=== PATIENT | male | born 1955 | race Caucasian/White ===

== ENCOUNTER 2019-12-29 15:20 | Outpatient (REF) | payer MEDICARE, MEDICAID, OTHER, SELFPAY ==
--- NOTE | 2019-12-29 15:47 | US_ITS ---
EXAMINATION: US VENOUS ULTRASOUND WITH DOPPLER LOWER EXTREMITY, RIGHT CLINICAL INFORMATION: Reason for Exam M79.89 - Other specified soft tissue disorders COMPARISON: Most recent venous ultrasound April 2018 and January 2015 TECHNIQUE: Ultrasound of the deep veins is performed from the hip to the calf with compression sonography and color and pulse Doppler assessment. Spectral analysis with color-flow imaging is performed. FINDINGS: There is normal venous compression and respiratory variation and augmented flow. The visualized common femoral vein, superficial femoral vein, profunda femoral vein, popliteal vein, and the trifurcation region shows no evidence of deep venous thrombosis. There is no significant popliteal fossa cyst. If the patient's symptoms persist, followup ultrasound in 5 days 7 days might be of value to exclude proximal propagation from a non-visualized calf vein. US/US venous duplex LE RT IMPRESSION: No DVT demonstrated in the right lower extremity.
== END 2019-12-29 15:21 | disposition home or self-care (01) ==
LOC: HO.HMGCX 15:20
PROVIDERS: PCP Nurse Practitioner Family; Visit Provider Internal Medicine
DX: M79.89 Other specified soft tissue disorders (principal)
CPT/HCPCS: 93971

== ENCOUNTER → 2020-02-16 10:04 | Outpatient (BNVA) | payer MEDICARE, MEDICAID, SELFPAY | PROVIDERS: PCP Nurse Practitioner Family; Visit Provider Family Medicine Adult Medicine | DX: M16.10 Unilateral primary osteoarthritis, unspecified hip (principal); Z98.890 Other specified postprocedural states | CPT/HCPCS: Q3014 ==

== ENCOUNTER 2020-08-02 15:17 | Outpatient (REF) | payer MEDICARE, OTHER, SELFPAY ==
[2020-08-02 16:52] LABS: Amphetamine Screen Urine Not Detected (Not Detect); Barbiturates, Urine Not Detected (Not Detect); Benzodiazepines Screen Urine Not Detected (Not Detect); Cannabinoid Screen Urine Not Detected (Not Detect); Cocaine Screen Urine Not Detected (Not Detect); Opiate Screen Urine Not Detected (Not Detect); Phencyclidine Screen Urine Not Detected (Not Detect)
== END 2020-08-02 15:18 | disposition home or self-care (01) ==
LOC: HO.HMGCLDS 15:17
PROVIDERS: PCP Nurse Practitioner Family; Visit Provider Nurse Practitioner Family
DX: Z02.83 Encounter for blood-alcohol and blood-drug test (principal)
CPT/HCPCS: 80307

== ENCOUNTER 2020-09-10 14:44 | Outpatient (REF) | payer MEDICARE, OTHER, SELFPAY ==
[2020-09-10 17:08] LABS: Amphetamine Screen Urine Not Detected (Not Detect); Barbiturates, Urine Not Detected (Not Detect); Benzodiazepines Screen Urine Not Detected (Not Detect); Cannabinoid Screen Urine Not Detected (Not Detect); Cocaine Screen Urine Not Detected (Not Detect); Opiate Screen Urine Not Detected (Not Detect); Phencyclidine Screen Urine Not Detected (Not Detect)
== END 2020-09-10 14:45 | disposition home or self-care (01) ==
LOC: HO.HMGCLDS 14:44
PROVIDERS: PCP Nurse Practitioner Family; Visit Provider Nurse Practitioner Family
DX: Z02.83 Encounter for blood-alcohol and blood-drug test (principal)
CPT/HCPCS: 80307

== ENCOUNTER 2020-10-19 14:26 | Outpatient (REF) | payer MEDICARE, OTHER, SELFPAY ==
[2020-10-19 16:52] LABS: Amphetamine Screen Urine Not Detected (Not Detect); Barbiturates, Urine Not Detected (Not Detect); Benzodiazepines Screen Urine Not Detected (Not Detect); Cannabinoid Screen Urine Not Detected (Not Detect); Cocaine Screen Urine Not Detected (Not Detect); Fentanyl, urine Not Detected (Not Detect); Opiate Screen Urine Not Detected (Not Detect); Phencyclidine Screen Urine Not Detected (Not Detect)
== END 2020-10-19 14:27 | disposition home or self-care (01) ==
LOC: HO.HMGCLDS 14:26
PROVIDERS: PCP Nurse Practitioner Family; Visit Provider Nurse Practitioner Family
DX: Z02.83 Encounter for blood-alcohol and blood-drug test (principal); F11.20 Opioid dependence, uncomplicated
CPT/HCPCS: 80307

== ENCOUNTER 2021-01-08 12:13 | Outpatient (REF) | payer MEDICARE, OTHER, SELFPAY ==
[2021-01-08 14:36] LABS: Amphetamine Screen Urine Not Detected (Not Detect); Barbiturates, Urine Not Detected (Not Detect); Benzodiazepines Screen Urine Not Detected (Not Detect); Cannabinoid Screen Urine Not Detected (Not Detect); Cocaine Screen Urine Not Detected (Not Detect); Fentanyl, urine Not Detected (Not Detect); Opiate Screen Urine Not Detected (Not Detect); Phencyclidine Screen Urine Not Detected (Not Detect)
== END 2021-01-08 12:14 | disposition home or self-care (01) ==
LOC: HO.HMGCLDS 12:13
PROVIDERS: Visit Provider Nurse Practitioner Family
DX: Z02.83 Encounter for blood-alcohol and blood-drug test (principal)
CPT/HCPCS: 80307

== ENCOUNTER 2021-11-06 10:20 | Outpatient (REF) | payer MEDICARE, OTHER, SELFPAY ==
[2021-11-06 11:56] LABS: Amphetamine Screen Urine Not Detected (Not Detect); Barbiturates, Urine Not Detected (Not Detect); Benzodiazepines Screen Urine Not Detected (Not Detect); Cannabinoid Screen Urine Not Detected (Not Detect); Cocaine Screen Urine Not Detected (Not Detect); Fentanyl, urine Not Detected (Not Detect); Opiate Screen Urine Not Detected (Not Detect); Phencyclidine Screen Urine Not Detected (Not Detect)
[2021-11-12 08:25] LABS: Codeine, Ur NEGATIVE; Hydrocodone, Ur NEGATIVE; Hydromorphone, Ur NEGATIVE; Morphine, Ur NEGATIVE; Norhydrocodone, Ur NEGATIVE; Noroxycodone, Ur NEGATIVE; Oxycodone, Ur NEGATIVE; Oxymorphone, Ur NEGATIVE
== END 2021-11-06 10:21 | disposition home or self-care (01) ==
LOC: HO.HMGCLDS 10:20
PROVIDERS: PCP Nurse Practitioner Family; Visit Provider Nurse Practitioner Family
DX: Z02.83 Encounter for blood-alcohol and blood-drug test (principal)
CPT/HCPCS: 80307; 80364; 80365

== ENCOUNTER 2022-01-03 13:30 | Outpatient (REF) | payer MEDICARE, OTHER, SELFPAY ==
--- NOTE | ~2022-01-03 | CT_ITS ---
EXAMINATION: CT CHEST SCREENING CLINICAL INFORMATION: Current smoker. 100 pack year history. COMPARISON: None. TECHNIQUE: Multidetector volumetric CT imaging of the chest is performed without contrast using low dose technique. Additional 2D coronal and sagittal reformatted images and axial 3D maximum intensity projection (MIP) images are generated on the CT workstation. This CT examination was performed using dose optimization techniques as appropriate, variously including the following: *Automated exposure control *Adjustment of mA and/or kV according to patient size (this includes techniques or standardized protocols for targeted exams where dose is matched to indication/reason for exam; i.e. extremities or head) *Use of iterative reconstruction technique DLP: 78 mGy-cm FINDINGS: LUNGS: Emphysema. 5 mm linear density in the right upper lobe axial image 79 series 5. 4 x 6 mm triangular-shaped peripheral or subpleural right middle lobe nodule adjacent to the minor fissure axial image 282 series 5 probably representing a subpleural lymph node. 3 mm peripheral or subpleural left lower lobe nodule adjacent to the fissure axial image 433 series 5 probably representing a subpleural lymph node. MEDIASTINUM: Coronary artery and aortic valve calcification. Normal heart size. No pericardial effusion. Normal caliber thoracic aorta. No enlarged hilar or mediastinal lymph nodes. CORONARY ARTERY CALCIFICATION: Moderate PLEURA: There is no pleural effusion. No pleural mass or thickening. Small left posterior medial diaphragmatic hernia containing fat. AXILLA: No lymphadenopathy. UPPER ABDOMEN: Unremarkable OSSEOUS STRUCTURES: Degenerative changes of the spine. CT/CT lung screening IMPRESSION: Emphysema. Small pulmonary nodules. Moderate coronary artery calcification. ASSESSMENT: Lung-RADS category 2: Benign RECOMMENDATION: Annual low-dose chest CT follow-up recommended.
== END 2022-01-03 13:31 | disposition home or self-care (01) ==
LOC: HO.CT 13:30
PROVIDERS: PCP Nurse Practitioner Family; Visit Provider Physician Assistant Medical
DX: Z12.2 Encounter for screening for malignant neoplasm of respiratory organs (principal); F17.210 Nicotine dependence, cigarettes, uncomplicated
CPT/HCPCS: 71271; G0296

== ENCOUNTER → 2022-02-18 09:51 | Outpatient (BNVA) | payer MEDICARE, MEDICAID, SELFPAY | PROVIDERS: PCP Nurse Practitioner Family; Visit Provider Internal Medicine | DX: R06.02 Shortness of breath (principal); J44.9 Chronic obstructive pulmonary disease, unspecified; E66.9 Obesity, unspecified; F17.210 Nicotine dependence, cigarettes, uncomplicated; Z68.35 Body mass index [BMI] 35.0-35.9, adult | CPT/HCPCS: 99202 ==

== ENCOUNTER 2022-03-06 08:54 | Outpatient (REF) | payer MEDICARE, MEDICAID, SELFPAY ==
--- NOTE | 2022-03-06 12:41 | PFT_ITS ---
Forced vital capacity is 91%, FEV1 71%, FEV1/FVC ratio is 58. [id number] is 30%. MVV is 65%. Post bronchodilator therapy, there is significant improvement in FVC, FEV1, and [id number]. Total lung capacity 98%. Residual volume 116%. Diffusion capacity 71%. CONCLUSION: Moderately severe obstructive airway disorder. Almost complete airway stability after bronchodilator therapy. These findings are consistent with bronchial asthma. Clinical correlation recommended. MD ELOISA Ratliff/MODL / [id number]
== END 2022-03-06 08:55 | disposition home or self-care (01) ==
LOC: HO.RESP 08:54
PROVIDERS: PCP Nurse Practitioner Family; Visit Provider Internal Medicine
DX: J44.9 Chronic obstructive pulmonary disease, unspecified (principal); R06.02 Shortness of breath; F17.210 Nicotine dependence, cigarettes, uncomplicated
CPT/HCPCS: 94060; 94727; 94729

== ENCOUNTER → 2022-04-01 11:15 | Outpatient (BNVA) | payer MEDICARE, MEDICAID, SELFPAY | PROVIDERS: PCP Nurse Practitioner Family; Visit Provider Internal Medicine | DX: J43.9 Emphysema, unspecified (principal); F17.210 Nicotine dependence, cigarettes, uncomplicated | CPT/HCPCS: 99212 ==

== ENCOUNTER → 2022-07-29 11:17 | Outpatient (BNVA) | payer MEDICARE, MEDICAID, SELFPAY | PROVIDERS: PCP Nurse Practitioner Family; Visit Provider Internal Medicine | DX: J44.9 Chronic obstructive pulmonary disease, unspecified (principal); F17.210 Nicotine dependence, cigarettes, uncomplicated | CPT/HCPCS: 94010; 99212 ==

== ENCOUNTER 2022-11-13 13:51 | Outpatient (AMB) | payer OTHER, MEDICARE, MEDICAID, SELFPAY ==
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
[2022-11-13 13:56] VITALS: BP 132/80; PULSE 78; TEMP 36.1; O2SAT 96; BMI 36.0
== END 2022-11-13 14:41 | disposition home or self-care (01) ==
PROVIDERS: PCP Nurse Practitioner Family; Visit Provider Emergency Medicine
DX: M62.838 Other muscle spasm (principal)
CPT/HCPCS: 99213

== ENCOUNTER 2022-11-26 13:40 | Outpatient (AMB) | payer OTHER, MEDICARE, MEDICAID, SELFPAY ==
[2022-11-26 14:05] VITALS: BP 130/60; PULSE 78; O2SAT 93; BMI 37.8
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
== END 2022-11-26 15:42 | disposition home or self-care (01) ==
PROVIDERS: PCP Nurse Practitioner Family; Visit Provider Nurse Practitioner Family
DX: M50.90 Cervical disc disorder, unspecified, unspecified cervical region (principal); E66.9 Obesity, unspecified; Z12.5 Encounter for screening for malignant neoplasm of prostate; Z68.33 Body mass index [BMI] 33.0-33.9, adult
CPT/HCPCS: 99213

== ENCOUNTER 2022-11-26 14:52 | Outpatient (REF) | payer OTHER, MEDICARE, MEDICAID, SELFPAY ==
--- NOTE | ~2022-11-26 | XR_ITS ---
EXAMINATION: XR CERVICAL SPINE CLINICAL INFORMATION: Cervical disc disease. COMPARISON: Radiographs dated 05/12/2014. TECHNIQUE: Frontal, odontoid, lateral and swimmer's views of the cervical spine were obtained. FINDINGS: Vertebral body heights are normal. At C3-C4, there is moderate disc space narrowing and a 3 mm retrolisthesis. At C4-C5, there is moderate disc space narrowing and a 3 mm retrolisthesis. At C6-C7, there is marked disc space narrowing. The remaining disc spaces are relatively well-maintained. No acute fracture or spondylolisthesis is seen. There is multi-level cervical spondylosis and facet arthropathy. The posterior elements are intact. The paravertebral soft tissues are unremarkable. XR/XR cervical spine 2V IMPRESSION: There is multi-level cervical degenerative disc disease, spondylosis and facet arthropathy. Degenerative disc disease is most pronounced at C6-C7, where it is marked.
== END 2022-11-26 14:53 | disposition home or self-care (01) ==
LOC: HO.HMGCX 14:52
PROVIDERS: PCP Nurse Practitioner Family; Visit Provider Nurse Practitioner Family
DX: M50.90 Cervical disc disorder, unspecified, unspecified cervical region (principal)
CPT/HCPCS: 72040

== ENCOUNTER 2023-07-29 10:00 | Outpatient (REF) | payer MEDICARE, SELFPAY ==
--- NOTE | ~2023-07-29 | CT_ITS ---
EXAMINATION: CT LOW-DOSE SCREENING CHEST WITHOUT CONTRAST CLINICAL INFORMATION: Personal history of nicotine dependence. The patient has a 40 pack-year history of smoking, having quit 1 year ago. COMPARISON: CT chest 01/03/2022. TECHNIQUE: Multidetector volumetric CT imaging of the chest is performed on a Siemens SOMATOM Definition scanner without contrast using low dose technique. Additional 2D coronal and sagittal reformatted images and axial 3D maximum intensity projection (MIP) images are generated on the CT workstation. This CT examination was performed using dose optimization techniques as appropriate, variously including the following: *Automated exposure control. *Adjustment of mA and/or kV according to patient size (this includes techniques or standardized protocols for targeted exams where dose is matched to indication/reason for exam; i.e. extremities or head). *Use of iterative reconstruction technique. TOTAL EXAM DLP: 89 mGy-cm. CTDIvol: 2.39 mGy. FINDINGS: PULMONARY NODULES: There is a new left infrahilar mass abutting the posterior mediastinum measuring 5.4 x 3.7 x 5.2 cm (5:344). At the time of the prior study, a slightly complex cyst was present in this region (prior 5:288). Some other small nodules are seen and unchanged including a triangular right middle lobe perifissural nodule (5:393 compare prior 5:282). [place] images have been saved. LUNGS: Lungs bilaterally symmetrically expanded. There is mild emphysema along with mild bronchial thickening. No effusion or pneumothorax. Central airways patent. MEDIASTINUM: No mediastinal, hilar or axillary adenopathy or free fluid collection. CORONARY ARTERY CALCIFICATION: None visualized on this study. THYROID GLAND: Unremarkable to the extent seen. CARDIOVASCULAR STRUCTURES: Aortic and heart size normal. No pericardial effusion. CHEST WALL/AXILLA: Unremarkable. UPPER ABDOMEN: Included portions of the solid organs in the upper abdomen unremarkable on noncontrast imaging. OSSEOUS STRUCTURES: No suspicious focal findings. CT/CT lung screening IMPRESSION: New left infrahilar mass measuring 5.4 cm. ASSESSMENT: 1. Lung-RADS Category 4B: Suspicious findings. N/A. 2. Lung-RADS Category S: Negative. There are no clinically significant or potentially clinically significant findings not related to the lungs requiring urgent additional evaluation. RECOMMENDATION: Tissue sampling is recommended depending on the probability of malignancy and comorbidities.
== END 2023-07-29 10:01 | disposition home or self-care (01) ==
LOC: HO.CT 10:00
PROVIDERS: PCP Nurse Practitioner Family; Visit Provider Physician Assistant Medical
DX: Z12.2 Encounter for screening for malignant neoplasm of respiratory organs (principal); Z87.891 Personal history of nicotine dependence
CPT/HCPCS: 71271

== ENCOUNTER 2023-09-02 13:06 | Outpatient (AMB) | payer MEDICARE, SELFPAY ==
--- NOTE | 2023-09-02 13:10 | AM.OFFWIN_ITS ---
Intake Vital Signs 09/02/23 13:11 Height 5 ft 11 in Weight 247 lb BMI 34.4 BP 110/62 Blood Pressure Location Rt brachial Position Sitting Pulse 66 Pulse Source Pulse Oximeter Temp 98.7 F Temp Source Oral Pulse Oximetry (%) 98 Oxygen Delivery Method Room Air Intake Visit Reasons: EP ?Spider bite back of head Intake Note: pt here c/o insect bite on back of head. ? Spider bite Patient Tobacco Use Status: Former Tobacco user Allergies Bees Allergy (Unknown, Uncoded 09/02/23 13:10) anaphylaxis Do you need a note to return to daycare/school/sports/work: No HPI HPI Comments History of Present Illness Details Patient is a 68yo M who presents for painful scalp lesions Ongoing a 1-2 weeks Initially thought bit by something Recently took his boat out in [place] and unsure if insects Not itchy Painful when he scratches No fever or chills Used Ibuprofen for slight discomfort and headache it causes No vision changes associated No other complaints PFS Medical History (Updated 09/02/23 @ 13:29 by Susan Barrera PA-C) Personal history of nicotine dependence Asthma with chronic obstructive pulmonary disease (COPD) COPD (chronic obstructive pulmonary disease) Obesity (BMI 30.0-34.9) History of COVID-19 Left hip prosthetic joint infection Opioid dependence Shoulder pain Osteoarthritis Right leg swelling Arthritis, hip Surgical History History of total right hip replacement History of total left hip replacement History of lumbar surgery Family History Father Colon cancer Mother Cancer Social History Household Members Other:: , lives with and 10 yo daughter Housing: House Alcohol intake: never Patient Tobacco Use Status: Former Tobacco user Cigarette Packs Per Day: 1 Years Smoked: onset 16yo, 1ppd x 40yrs, 40pyh e-Cigarette/Vaping Use: Never Used Second Hand Smoke Exposure: No Current 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 Cognitive needs: No Hearing needs: No Vision needs: No Review of Systems Const Denies chills, Denies fatigue, Denies fever(s) and Reports headache(s) Eyes Denies change in vision ENT Denies dizziness, Reports headache(s), Denies nasal congestion and Denies sore throat Card Denies chest pain and Denies syncope Resp Denies cough Skin/Breast Reports new lesions and Reports skin pain Neuro Denies dizziness, Denies syncope and Reports headache(s) Endo Denies fatigue Physical Exam Vital Signs: Last Vital Signs Temp 98.7 F 09/02/23 13:11 Pulse 66 09/02/23 13:11 BP 110/62 09/02/23 13:11 Pulse Ox 98 09/02/23 13:11 Oxygen Delivery Method Room Air 09/02/23 13:11 BMI result Body Mass Index 34.4 General: Non-toxic, NAD. Speaking full sentences. Skin: Warm dry throughout. Scalp has scattered approx 5-7 pustules and scabbed lesions without significant erythema. No active drainage No lesions to neck periauricular or periorbital region Eye: EOMI Respiratory: No respiratry distress MSK: Full ROM extremities. Neurology: A/O. No aphasia or facial droop. Gait without abnormality Psych: Good mood and affect Assessment & Plan Assessment & Plan (1) Folliculitis: Code(s): L73.9 - Follicular disorder, unspecified Plan: Patient seen and evaluated. Pt does not have shingles on examination He has few scattered small pustules bilaterall on scalp On doxy BID for chronic hip infection with infectious disease so will add keflex Patient gave verbal understanding and had no additional questions or concerns at time of discharge All questions answered Medications: New cephalexin 500 mg PO BID 14 caps 0RF Coding Level of Care Code Est Pt Level 3 (27558) Diagnoses Folliculitis L73.9
[2023-09-02 13:11] VITALS: BP 110/62; PULSE 66; TEMP 37.1; O2SAT 98; BMI 34.4
== END 2023-09-02 13:44 | disposition home or self-care (01) ==
PROVIDERS: PCP Nurse Practitioner Family; Visit Provider Physician Assistant
DX: L73.9 Follicular disorder, unspecified (principal)
CPT/HCPCS: 99213

== ENCOUNTER 2023-09-04 11:50 | Day surgery (SDC) | payer MEDICARE, SELFPAY ==
--- NOTE | 2023-09-02 13:21 | P.CONAN_ITS ---
Documented by User: Monie Caldwell NP 09/02/23 13:21 HPI - Anesthesia Eval Consult details Narrative: 68yo M for Endoscopic Bronchial Ultrasound [facility] Active Problems Active Problems: All Active Problems Opioid dependence (Acute) COPD (chronic obstructive pulmonary disease) (Acute) Personal history of nicotine dependence (Acute) Nicotine dependence, cigarettes, uncomplicated (Acute) Shortness of breath (Acute) Chronic lower back pain (Acute) DDD (degenerative disc disease), cervical (Acute) Cervical neck pain with evidence of disc disease (Acute) Screening for AAA (abdominal aortic aneurysm) (Acute) Obesity (BMI 30.0-34.9) (Acute) Dermatitis (Acute) Right leg swelling (Acute) Arthritis, hip (Acute) Past Medical History Medical History (Updated 09/13/23 @ 14:41 by Nikita Martinez [facility]) Carcinoma, lung Personal history of nicotine dependence Asthma with chronic obstructive pulmonary disease (COPD) COPD (chronic obstructive pulmonary disease) Obesity (BMI 30.0-34.9) History of COVID-19 Left hip prosthetic joint infection Opioid dependence Shoulder pain Osteoarthritis Right leg swelling Arthritis, hip Family History Family History Father Colon cancer Mother Cancer Surgical History Surgical History (Updated 09/17/23 @ 09:55 by Kierra Bella PA-C) History of bronchoscopy History of total right hip replacement History of total left hip replacement History of lumbar surgery Social History Social History Household Members Other:: , lives with and 10 yo daughter Housing: House Alcohol intake: never Patient Tobacco Use Status: Former Tobacco user Cigarette Packs Per Day: 1 Years Smoked: onset 16yo, 1ppd x 40yrs, 40pyh e-Cigarette/Vaping Use: Never Used Second Hand Smoke Exposure: No Current 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 Assessment and Plan Assessment Anesthesia Assessment: Chart Reviewed Documented by User: All Villanueva MD 09/17/23 13:07 [facility] Past Medical History Medical History (Updated 09/13/23 @ 14:41 by CARY Concepcion) Carcinoma, lung Personal history of nicotine dependence Asthma with chronic obstructive pulmonary disease (COPD) COPD (chronic obstructive pulmonary disease) Obesity (BMI 30.0-34.9) History of COVID-19 Left hip prosthetic joint infection Opioid dependence Shoulder pain Osteoarthritis Right leg swelling Arthritis, hip Family History Family History Father Colon cancer Mother Cancer Family history of problems with anesthesia: No Surgical History Surgical History (Updated 09/17/23 @ 09:55 by Kierra Bella PA-C) History of bronchoscopy History of total right hip replacement History of total left hip replacement History of lumbar surgery History of Problems with Anesthesia: No Social History Social History Household Members Other:: , lives with and 10 yo daughter Housing: House Alcohol intake: never Patient Tobacco Use Status: Former Tobacco user Cigarette Packs Per Day: 1 Years Smoked: onset 16yo, 1ppd x 40yrs, 40pyh e-Cigarette/Vaping Use: Never Used Second Hand Smoke Exposure: No Current 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 See above. Assessment and Plan Assessment Anesthesia Assessment: Anesthesia Plan Discussed Final Anesthetic Review Family History of Problems with Anesthesia: No History of Problems with Anesthesia: No NPO: Yes ASA Class: III Final Preanesthetic Review: No Changes in Pt Med Stat, Meds/Allgs Chart Reviewed, Consent Obtained/Reviewed and Anes Risks/Benef Reviewed Patient Risk: High Procedure Risk: Intermediate Anesthetic Plan Anesthetic Plan: GA and Agree w/ Assess. and Plan Disposition: Standard PACU
--- NOTE | ~2023-09-04 | XR_ITS ---
EXAMINATION: XR CHEST CLINICAL INFORMATION: Status post bronchoscopy. Left lung biopsy. COMPARISON: Chest CT July 29, 2023 TECHNIQUE: Frontal view of the chest was obtained. FINDINGS: The lungs are well expanded. There is a partially obscured left infrahilar mass. No sizable pneumothorax. No pleural effusion. Cardiac silhouette is unchanged. XR/XR chest 1V IMPRESSION: Partially obscured left infrahilar mass. Electronically signed by: Agustin Hussein MD 10/23/2023 09:34 AM EDT
[2023-09-04 12:01] VITALS: BP 146/68; PULSE 82; RESP 20; TEMP 36.9; O2SAT 96; BMI 34.0
[2023-09-04] MEDS: Lactated Ringers 1,000 ML 100 ML IVCONT (12:21)
--- NOTE | 2023-09-04 12:55 | MHC.SHP ---
Pre-Procedural Eval Section A - 24 Hr Update-Section A only Date of Service: 09/04/23 The patient is an INPATIENT: No Changes since office visit: No Cold of Flu in the past 2 weeks, No New Medical Problems, No Changes in Medication and No Patient answered all questions Section B - Complete if H&P > 30 days Chief Complaint: Other nonspecific abnormal finding of lung field Details of Present Illness: 68 y/o man with CT chest demonstrating a LLL mass like density Relevant Family History (Specify if Yes): No Relevant Social History: None Present Medications: see Short Stay Collaborative assessment Medical History: Significant History History of Previous Operations: No relevant previous surgery Allergies: Allergies Allergy/AdvReac Type Severity Reaction Status Date / Time Bees Allergy Unknown anaphylaxis Uncoded 09/02/23 13:10 Review of Systems Sugical H&P ROS: Negative: Constitution, Cardiovascular, Neurological, Psychiatric, Hem-Onc, Allergic/Immunologic, Gastrointestinal, Genitourinary and Musculoskeletal and Yes, Specify: Respiratory (cough, dyspnea) Exam Surgical H&P Exam: Normal: HEENT, Normal: Heart, Normal: Lungs, Normal: Extremities, Normal: Abdomen, Normal: Skin and Normal: Neurological Plan Diagnosis/Plan: Change (LLL mass plan for EBUS/bronchosocpy) I have reviewed the history and physical and performed a pertinent physical examination on my patient. No changes have occurred unless specified. Time Spent With Patient Time: Total time managing care of this patient today ____ minutes.
[2023-09-04 14:40] VITALS: BP 132/61; PULSE 94; RESP 18; TEMP 36.6; O2SAT 96
[2023-09-04 14:45] VITALS: BP 135/62; PULSE 89; RESP 18; O2SAT 94
[2023-09-04 14:50] VITALS: BP 127/62; PULSE 88; RESP 18; O2SAT 96
[2023-09-04 14:55] VITALS: BP 133/75; PULSE 84; RESP 18; TEMP 37; O2SAT 96
--- NOTE | 2023-09-08 13:50 | P.BOP_ITS ---
Brief Operative Note Date of Service: 09/08/23 Pre-op diagnosis: lung mass Post-op diagnosis: other (lung cancer) Procedure: EBUS with TBNA LLL mass, Bronchoscopy with biopsies LLL mass Implants: Surgeon: Brady Paula MD Anesthesia: GETA Was an Drug Regulatory Affairs Specialist used for this Procedure?: No Estimated blood loss (mL): 4 Pathology: other (LLL biopsies and FNA) Condition: stable Disposition: same day
--- NOTE | 2023-09-09 00:47 | OP_ITS ---
DATE OF SERVICE: 09/04/2023 SURGEON: Brady Paula MD PREOPERATIVE DIAGNOSIS: Lung mass. POSTOPERATIVE DIAGNOSIS: PROCEDURE PERFORMED: ESTIMATED BLOOD LOSS: COMPLICATIONS: ANESTHESIA: General endotracheal anesthesia provided. ASSISTANTS: SPECIMENS: POSTOPERATIVE DIAGNOSES: Lung mass, suspicious for cancer within the bronchial lesion, the left lower lobe. PROCEDURES PERFORMED: Endobronchial ultrasound bronchoscopy with transbronchial needle aspiration of the left lower lobe lobe mass and bronchoscopy with biopsies and washings of the left lower lobe mass. DESCRIPTION OF PROCEDURE: After the patient was adequately sedated, a flexible digital bronchoscope was introduced into the ET tube to the level of the trachea. Lidocaine was administered. Then using the endobronchial ultrasound, could visualize the left lower lobe area. Using the ultrasound guidance, we could appreciate the echogenic mass like density in the left lower lobe. Using real time ultrasound guidance, transbronchial needle aspirations were collected. We did not have the pathologist present, so we did perform 4 passes and placed them and also some in RPMI to rule for lymphoproliferative conditions. Minimal bleeding was noted from that. Next, the EBUS bronchoscope was removed and replaced with a regular bronchoscopy. The tracheobronchial tree was examined up to the subsegmental level. No evidence of any other endobronchial lesions except from the superior segment of the left lower lobe. Epinephrine was initially used half an ampule just to prepare the area that appeared to be with vascular in nature as far as the tumor growth. After pretreating with epinephrine using forceps, the bronchial biopsies were collected in the left lower lobe mass, sent in formalin for pathology. Multiple passes were done. Addition epinephrine was used to good hemostasis. After the patient reached good hemostasis, and we cleared out the airways, the bronchoscope was then removed. The total endoscopic time approximately about 45 minutes. The patient tolerated the procedure well. Vital signs were stable throughout the procedure. X-ray was done afterwords. No apparent complications. HEALTHCARE CONSULTING MANAGER: None. Brady Paula MD MR/OLGAL / [id number]
== END 2023-09-04 15:25 | disposition home or self-care (01) ==
PROVIDERS: PCP Nurse Practitioner Family; Visit Provider Hospitalist
PROC: (CPT 31628; principal; 2023-09-04 13:30)
DX: C34.32 Malignant neoplasm of lower lobe, left bronchus or lung (principal)
CPT/HCPCS: 31628; 31623; 31654; 36415; 71045; 87070; 87077; 87185; 87205; 88112; 88173; 88184; 88185; 88300; 88305; 88341; 88342; 88360; J0171; J2704; J3010

== ENCOUNTER → 2023-09-04 11:50 | Outpatient (BNV) | payer MEDICARE, SELFPAY | PROVIDERS: PCP Nurse Practitioner Family; Visit Provider Hospitalist | DX: C34.32 Malignant neoplasm of lower lobe, left bronchus or lung (principal) | CPT/HCPCS: 31625; 31652 ==

== ENCOUNTER 2023-09-15 12:26 | Outpatient (REF) | payer MEDICARE, SELFPAY ==
[2023-09-15 10:52] VITALS: PULSE 77; RESP 16; O2SAT 97
--- NOTE | 2023-09-15 14:14 | PFT_ITS ---
Flows: FEV1: 87 % of predicted at 2.90 L FVC: 99 % of predicted at 4.35 L FEV1/FVC: 67 % Bronchodilator response: Present Volumes: Total lung capacity: 96 % of predicted at 7.08 L Residual volume: 121 % of predicted at 3.17 L Slow vital capacity: 82 % of predicted at 3.90 L Expiratory reserve volume: 86 % of predicted at 1.12 L Diffusion capacity: Mildly decreased Impression: Mild obstructive ventilatory defect with positive bronchodilator response. Increased residual volume suggests air trapping. Decreased diffusion capacity suggests emphysema. MTDD
== END 2023-09-15 12:27 | disposition home or self-care (01) ==
LOC: HO.RESP 12:26
PROVIDERS: PCP Nurse Practitioner Family; Visit Provider Internal Medicine
DX: J44.9 Chronic obstructive pulmonary disease, unspecified (principal)
CPT/HCPCS: 94010; 94640; 94727; 94729

== ENCOUNTER → 2023-09-15 14:14 | Outpatient (BNV) | payer MEDICARE, SELFPAY | PROVIDERS: PCP Nurse Practitioner Family; Visit Provider Internal Medicine Pulmonary Disease | DX: J44.9 Chronic obstructive pulmonary disease, unspecified (principal) | CPT/HCPCS: 94060; 94727; 94729 ==

== ENCOUNTER 2023-09-21 08:48 | Outpatient (REF) | payer MEDICARE, SELFPAY ==
--- NOTE | ~2023-09-21 | US_ITS ---
EXAMINATION: US RETROPERITONEAL LIMITED (AORTA) CLINICAL INFORMATION: Chronic obstructive pulmonary disease, unspecified, smoker. COMPARISON: CT low-dose screening chest without contrast 07/29/2023. TECHNIQUE: Kruger-scale, color Doppler and spectral Doppler evaluation of the abdominal aorta. Technically limited study secondary to body habitus. FINDINGS: Atherosclerosis in the abdominal aorta. The measurements of the aorta in maximum AP and transverse dimensions respectively are as follows: Proximal: 2.5 x 2.2 cm. Mid: 2.6 x 3.1 cm. Distal: 3.2 x 3.3 cm. PSV: 83.2 cm/s. The measurements of the common iliac arteries in maximum AP and TRV dimensions are as follows: Right Common Iliac Artery: 1.3 x 1.3 cm. Left Common Iliac Artery: 1.3 x 1.5 cm. ADDITIONAL FINDINGS: Sludge incidentally noted in the gallbladder. US/US abdominal aortic aneurysm IMPRESSION: Distal abdominal aortic aneurysm measuring up to 3.3 cm. Best Practice Recommendation: Based on published guidelines in J Am Ever Radiol 2013; 10(10):789-794 and J Vasc Surg. 2018; 67:2-77, the recommendation for an abdominal aortic aneurysm with diameter 3.0-3.4 cm is follow-up every 3 years.
[2023-09-21 10:11] LABS: MANUAL DIFF FLAG NO
[2023-09-21 10:16] LABS: Basophils Absolute Auto 0.1 X10*3/uL (0.0-0.2); Basophils Percent Auto 0.5 % (0-2); Eosinophils Absolute Auto 0.3 X10*3/uL (0.0-0.4); Eosinophils Percent Auto 3.1 % (0-4); Hematocrit 36.7 % (42.0-52.0); Hemoglobin 11.8 g/dl (14.0-18.0); Imm Gran Abs Auto 0.06 X10*3/uL (0.00-0.03); Imm Gran Pct Auto 0.6 % (0.0-0.4); Lymphocytes Absolute Auto 1.9 X10*3/uL (1.2-4.9); Lymphocytes Percent Auto 19.9 % (20-40); Mean Corpuscular HGB Conc 32.2 g/dl (31.0-36.0); Mean Corpuscular Hemoglobin 26.2 pg (27.0-33.0); Mean Corpuscular Volume 81.6 fL (80.0-98.0); Mean Platelet Volume 8.2 fL (9.4-12.4); Monocytes Absolute Auto 0.8 X10*3/uL (0.1-1.2); Monocytes Percent Auto 8.3 % (2-11); Neutrophils Absolute Auto 6.5 x10*3/uL (2.0-8.3); Neutrophils Percent Auto 67.6 % (45-73); Platelet Count 368 X10*3/uL (160-400); Red Cell Distribution Width 15.1 % (11.0-16.0); White Blood Count 9.6 X10*3/uL (4.8-10.8)
[2023-09-21 11:22] LABS: Alanine Aminotransferase 22 U/L (0-40); Albumin Level 3.7 g/dL (3.5-5.0); Alkaline Phosphatase 118 U/L (39-117); Anion Gap 12 (12-20); Aspartate Amino Transferase 18 U/L (5-37); Bilirubin Total 0.3 mg/dL (0.0-1.0); Blood Urea Nitrogen 17 mg/dL (9-16); Calcium 9.7 mg/dL (8.4-10.2); Carbon Dioxide 27 mmol/L (22-29); Chloride 103 mmol/L (96-108); Cholesterol 179 mg/dL (<200); Estimated Glomerular Filt Rate > 60; Glucose Fasting 101 mg/dL (60-99); HDL Cholesterol 35 mg/dL (>40); LDL Cholesterol Calculated 125 mg/dL (<100); Potassium 4.3 mmol/L (3.3-5.1); Sodium 138 mmol/L (135-145); Total Protein 7.7 g/dL (6.5-8.0); Triglycerides 99 mg/dL (<150)
[2023-09-21 11:24] LABS: TSH reflex Free T4 0.46 uIU/mL (0.32-4.0)
== END 2023-09-21 08:49 | disposition home or self-care (01) ==
LOC: HO.HMGCX 08:48
PROVIDERS: PCP Nurse Practitioner Family; Visit Provider Nurse Practitioner Family
DX: J44.9 Chronic obstructive pulmonary disease, unspecified (principal); E66.9 Obesity, unspecified; Z87.891 Personal history of nicotine dependence; Z12.5 Encounter for screening for malignant neoplasm of prostate
CPT/HCPCS: 36415; 76706; 80053; 80061; 84153; 84443; 85025

== ENCOUNTER 2023-09-24 13:54 | Outpatient (AMB) | payer MEDICARE, SELFPAY ==
[2023-09-24 13:56] VITALS: BP 130/70; PULSE 76; O2SAT 96; BMI 33.1
--- NOTE | 2023-09-24 13:56 | MHC.PC.OV ---
Vital Signs 09/24/23 13:56 Height 5 ft 11 in Weight 237 lb BMI 33.1 BP 130/70 Blood Pressure Location Rt brachial Position Sitting Pulse 76 Pulse Source Pulse Oximeter Pulse Oximetry (%) 96 Oxygen Delivery Method Room Air Intake Visit Reasons: F/u on labs per JG Intake Note: pt is here for follow up on labs Team Leader Surgery Required: No Accompanied by: Self / Same As Patient Allergies Bees Allergy (Unknown, Uncoded 09/24/23 15:57) anaphylaxis Medication List - Last Reconciled 09/24/23 by NAT ConcepcionP- albuterol sulfate 90 mcg/actuation (ProAir HFA) 2 puffs inhalation Q8H PRN 30 days fluticasone propion-salmeterol 115-21 mcg/actuation (Advair HFA) 2 puffs inhalation BID 30 days ibuprofen 600 mg PO Q6H PRN Tobacco use date assessed: 09/24/23 Fall risk assessment: No Falls in past year Last assessed Fall Risk: 09/24/23 Dental Screening Dental Screen Date: 09/24/23 Did you have a dental visit in the last 12 months?: Yes Did you have a dental problem in the last 6 months where you did not have access to dental care?: No Was dental information given to patient?: Patient has dentist HPI F/u on labs per HPI Details Pt's recent PSA was very elevated at 73.80. He reports urinary frequency, urgency, and nocturia (up to 6 times per night). Labs including PSA were ordered previously but were not done. A stat urology referral was placed, pt is scheduled for 10/14. Instructed pt on the importance of following up with urology. Pt had a recent lung CT which showed a new left infrahilar mass abutting the posterior mediastinum measuring 5.4 x 3.7 x 5.2 cm. Pt is following up with thoracics. Denies fever, chills, and dizziness. [facility] Medical History (Updated 09/21/23 @ 16:00 by Brody Wolfe MD) Non-small cell cancer of left lung Carcinoma, lung Personal history of nicotine dependence Asthma with chronic obstructive pulmonary disease (COPD) COPD (chronic obstructive pulmonary disease) Obesity (BMI 30.0-34.9) History of COVID-19 Left hip prosthetic joint infection Opioid dependence Shoulder pain Osteoarthritis Right leg swelling Arthritis, hip Surgical History History of bronchoscopy History of total right hip replacement History of total left hip replacement History of lumbar surgery Family History Father Colon cancer Mother Cancer Social History Household Members Other:: , lives with and 10 yo daughter Housing: House Alcohol intake: never Patient Tobacco Use Status: Former Tobacco user Cigarette Packs Per Day: 1 Years Smoked: onset 16yo, 1ppd x 40yrs, 40pyh e-Cigarette/Vaping Use: Never Used Second Hand Smoke Exposure: No Current 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 14220 - PHQ-9 Billing: Patient declined-do not bill Source: Developed by Drs. Jeffy George, Daysi Ria, Ronnie Seth and colleagues, with an educational dana from [employer] Thrive Questionnaire Date Thrive assessed: 09/24/23 I am a: Patient What is your living situation today?: I have a steady place to live Within the past 12 months, did the food you bought not last and you didn't have the money to get more?: Never true Within the past 12 months, did you worry whether your food would run out before you got money to buy more?: Never true Do you have trouble paying for medicines?: No Do you have trouble getting transportation to medical appointments?: No Do you have trouble paying your heating and electricity bill?: No Do you have trouble taking care of your child, family member or friend?: No Do you have trouble with day-to-day activities such as bathing, preparing meals, shopping, managing finances, etc.?: No Are you currently unemployed and looking for a job?: No Are you interested in more education?: No Please select the resources that you would like help with: None Currently or been in a relationship where the following occur: No concerns reported THRIVE Score: 0 AUDIT C Alcohol Use Questionnaire (AUDIT-C) 1. How often do you have a drink containing alcohol?: Monthly or less 2. How many drinks containing alcohol do you have on a typical day when you are drinking?: 1 or 2 3. How often do you have six or more drinks on one occasion?: Never Total Score: 1 Score Reviewed/Action Taken: Yes NATALY-7 AMB Questionnaire NATALY-7 Date NATALY - 7 assessed: 09/24/23 Source: Developed by Drs. Jeffy George, Daysi Rai, Ronnie Seth and colleagues, with an educational dana from [employer]. NATALY-7 Assessment Billing NATALY-7 Assessment Tool: pt declined-do not bill Review of Systems Const Reports as per HPI Physical exam (Primary Care) Vital Signs: Last Vital Signs Pulse 76 09/24/23 13:56 BP 130/70 09/24/23 13:56 Pulse Ox 96 09/24/23 13:56 Oxygen Delivery Method Room Air 09/24/23 13:56 BMI result Body Mass Index 33.1 Tobacco/Smoking Status: Tobacco use Status Tobacco use date assessed 09/24/23 09/24/23 13:58 Patient Tobacco Use Status Former Tobacco user 09/24/23 13:58 e-Cigarette/Vaping Use Never Used 09/24/23 13:58 Thrive Assessment: Date of Thrive Assessment Date Thrive assessed 09/24/23 09/24/23 14:03 Currently or been in a relationship where the following occur: No concerns reported Const General: cooperative Orientation/consciousness: patient oriented x3 Resp Effort & Inspection: normal respiratory effort Auscultation: diminished lung sounds Cardio Rate: regular rate Rhythm: regular rhythm Heart sounds: S1 normal heart sound present and S2 normal heart sound present Other: YUDELKA: prostate enlarged, elongated, and indurated Neuro General: patient oriented x3 Psych Appearance: grossly normal Mental Status: mental status grossly normal Speech and movement: Normal speech and movement present Affect: normal affect Attitude: cooperative Thought process: Normal thought process present Thought content: Normal thought content present Insight: Good insight present (Psych) Judgement: Good judgement present (Psych) Assessment and Plan Assessment & Plan (1) Elevated PSA: Code(s): R97.20 - Elevated prostate specific antigen [PSA] Plan: following up with urology, started tamsulosin (2) Non-small cell cancer of left lung: Code(s): C34.92 - Malignant neoplasm of unspecified part of left bronchus or lung Plan: following up with thorcics Orders: Orders Complete Blood Count Auto Diff Today C34.92 - Malignant neoplasm of unspecified part of left bronchus or lung, R97.20 - Elevated prostate specific antigen [PSA] Ferritin Today C34.92 - Malignant neoplasm of unspecified part of left bronchus or lung, R97.20 - Elevated prostate specific antigen [PSA] Vitamin B12 and Folate Today C34.92 - Malignant neoplasm of unspecified part of left bronchus or lung, R97.20 - Elevated prostate specific antigen [PSA] IRON PROFILE Today C34.92 - Malignant neoplasm of unspecified part of left bronchus or lung, R97.20 - Elevated prostate specific antigen [PSA] Medications: New tamsulosin 0.4 mg PO BEDTIME 30 days 30 caps 2RF Coding Level of Care Code Est Pt Level 3 (23008) Diagnoses Elevated PSA R97.20 Non-small cell cancer of left lung C34.92
== END 2023-09-24 15:55 | disposition home or self-care (01) ==
PROVIDERS: PCP Nurse Practitioner Family; Visit Provider Nurse Practitioner Family
DX: R97.20 Elevated prostate specific antigen [PSA] (principal); C34.92 Malignant neoplasm of unspecified part of left bronchus or lung
CPT/HCPCS: 99213

== ENCOUNTER 2023-10-02 11:22 | Outpatient (AMB) | payer MEDICARE, SELFPAY ==
--- NOTE | 2023-10-02 11:22 | AM.OFFWIN_ITS ---
Intake Vital Signs 3 10/02/23 11:23 Height 5 ft 11 in Weight 231 lb BMI 32.2 BP 106/62 Blood Pressure Location Lt brachial Position Sitting Pulse 96 Pulse Source Pulse Oximeter Temp 98.5 F Temp Source Oral Pulse Oximetry (%) 99 Oxygen Delivery Method Room Air Intake Visit Reasons: EP Bumps on top of head Intake Note: pt c/o bumps on top of head. Painful to rest head on. Started a month ago Patient Tobacco Use Status: Former Tobacco user Allergies Bees Allergy (Unknown, Uncoded 10/02/23 11:22) anaphylaxis Do you need a note to return to daycare/school/sports/work: No HPI HPI Comments 2 History of Present Illness0 Details 68 y/o male patient who presents to the walk in clinic with c/o bumps on his scalp. Recurrent Bumps, takes Abx and usually goes away. Last Abx with Keflex was in August 2023. Reports having headaches and scalp tenderness. [facility] Medical History (Updated 09/21/23 @ 16:00 by Brody Wolfe MD) Non-small cell cancer of left lung Carcinoma, lung Personal history of nicotine dependence Asthma with chronic obstructive pulmonary disease (COPD) COPD (chronic obstructive pulmonary disease) Obesity (BMI 30.0-34.9) History of COVID-19 Left hip prosthetic joint infection Opioid dependence Shoulder pain Osteoarthritis Right leg swelling Arthritis, hip Surgical History History of bronchoscopy History of total right hip replacement History of total left hip replacement History of lumbar surgery Family History Father Colon cancer Mother Cancer Social History Household Members Other:: , lives with and 10 yo daughter Housing: House Alcohol intake: never Patient Tobacco Use Status: Former Tobacco user Cigarette Packs Per Day: 1 Years Smoked: onset 16yo, 1ppd x 40yrs, 40pyh e-Cigarette/Vaping Use: Never Used Second Hand Smoke Exposure: No Current 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 Large cysts, fixed soft and tender to touch 2. Large cysts, fixed soft and tender to touch Ears: external ears normal General nose exam: Normal external nose present Face and sinus: Yes sinuses nontender Neuro General: patient oriented x3, gait normal and moves all extremities Psych Speech and movement: Normal speech and movement present Assessment & Plan Assessment & Plan (1) Sebaceous cyst: Code(s): L72.3 - Sebaceous cyst Plan: Ordered Oral Abx Recom referral to General Surgery for I&D Acetaminophen for pain relief. Medications: New 2 dicloxacillin 500 mg PO Q6H 14 days 56 caps 0RF L72.3 - Sebaceous cyst Coding Level of Care Code Est Pt Level 3 (94961) Diagnoses Sebaceous cyst L72.3 Time Spent (min) 15
[2023-10-02 11:23] VITALS: BP 106/62; PULSE 96; TEMP 36.9; O2SAT 99; BMI 32.2
== END 2023-10-02 11:53 | disposition home or self-care (01) ==
PROVIDERS: PCP Nurse Practitioner Family; Visit Provider Nurse Practitioner Family
DX: L72.3 Sebaceous cyst (principal)
CPT/HCPCS: 99213

== ENCOUNTER 2023-10-05 11:04 | Outpatient (AMB) | payer MEDICARE, SELFPAY ==
--- NOTE | 2023-10-05 11:14 | A.OFFVIS_ITS ---
Vital Signs 10/05/23 11:17 Height 5 ft 11 in Weight 234 lb BMI 32.6 BP 129/61 Blood Pressure Location Rt brachial Position Sitting Pulse 97 Intake Visit Reasons: Malignant neoplasm~ Lt bronchus Intake Note: Patient referred by Dr. Paula for Lt lung mass. Recent CT guided Lt lower lobe bx on 09-04-2023. Patient c/o: mild SOB. 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 Accompanied by: Self / Same As Patient Allergies Bees Allergy (Unknown, Uncoded 10/05/23 11:19) anaphylaxis Medication List - Last Reconciled 10/05/23 by Christiano Hayes MD albuterol sulfate 90 mcg/actuation (ProAir HFA) 2 puffs inhalation Q8H PRN 30 days cephalexin 500 mg PO BID 14 days doxycycline monohydrate 100 mg PO BID fluticasone propion-salmeterol 115-21 mcg/actuation (Advair HFA) 2 puffs inhalation BID 30 days ibuprofen 600 mg PO Q6H PRN tamsulosin 0.4 mg PO BEDTIME 30 days HPI Comments Details: Patient presents for follow-up status post recently diagnosed left lower lobe lung cancer. Patient was in the lung cancer screening surveillance program and is found to have the mass in question. He underwent workup per pulmonology/Dr. Paula and cancer was diagnosed. Patient has a longstanding smoking history of 25-30 years +1 and 2 packs per day. He stopped approximately 2 years ago. He had interval in his urethra he also stopped. He denies any chronic cough, hemoptysis, chest pain, or bleeding. His weight, energy, and appetite are stable. He has no significant shortness of breath. Fact patient had pulmonary function tests which are reasonably good considering his smoking history. Chart was reviewed and patient evaluated [facility] Medical History Non-small cell cancer of left lung Carcinoma, lung Personal history of nicotine dependence Asthma with chronic obstructive pulmonary disease (COPD) COPD (chronic obstructive pulmonary disease) Obesity (BMI 30.0-34.9) History of COVID-19 Left hip prosthetic joint infection Opioid dependence Shoulder pain Osteoarthritis Right leg swelling Arthritis, hip Surgical History History of bronchoscopy History of total right hip replacement History of total left hip replacement History of lumbar surgery Family History Father Colon cancer Mother Cancer Social History Household Members Other:: , lives with and 10 yo daughter Housing: House Alcohol intake: never Patient Tobacco Use Status: Former Tobacco user Cigarette Packs Per Day: 1 Years Smoked: onset 16yo, 1ppd x 40yrs, 40pyh e-Cigarette/Vaping Use: Never Used Second Hand Smoke Exposure: No Current 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 No evidence of any cervical periclavicular or axillary or groin adenopathy bilaterally. GI Other: Abdomen [place], soft, benign Assessment & Plan Assessment & Plan (1) Non-small cell cancer of left lung: Code(s): C34.92 - Malignant neoplasm of unspecified part of left bronchus or lung Category: Surgical Plan Current plan is to arrange for a PET scan to further stage the patient. Further interventions studies will be directed by the results of the above-mentioned scan. More detail will be reviewed regarding therapeutic options once we have a more accurate stage; early stage versus more advanced lung cancer. Treatment options will include surgery, radiation, chemotherapy or various combination of these. All questions answered. Patient will see me as noted above Orders: Orders PET CT fusion skull to thigh Today C34.92 - Malignant neoplasm of unspecified part of left bronchus or lung Coding Level of Care Code New Pt Level 4 (20667) Diagnoses Non-small cell cancer of left lung C34.92
[2023-10-05 11:17] VITALS: BP 129/61; PULSE 97; BMI 32.6
== END 2023-10-05 11:27 | disposition home or self-care (01) ==
PROVIDERS: PCP Nurse Practitioner Family; Referring Provider Internal Medicine; Visit Provider Surgery
DX: C34.92 Malignant neoplasm of unspecified part of left bronchus or lung (principal)
CPT/HCPCS: 99204

== ENCOUNTER → 2023-10-05 11:04 | Outpatient (BNVA) | payer MEDICARE, SELFPAY | PROVIDERS: PCP Nurse Practitioner Family; Referring Provider Internal Medicine; Visit Provider Surgery | DX: C34.92 Malignant neoplasm of unspecified part of left bronchus or lung (principal) | CPT/HCPCS: 99202 ==

== ENCOUNTER 2023-10-15 09:46 | Outpatient (AMB) | payer MEDICARE, SELFPAY ==
--- NOTE | 2023-10-15 09:49 | A.OFFVIS_ITS ---
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 He is a patient of Dr. Quinn. He is seen for the following urologic conditions. - elevated PSA YUDLEKA today with bilateral hardness Consistent with prostate cancer Will expedite prostate biopsy Start dutasteride and bicalutamide Elevated PSA PSA 12/03 1.4, 10/09 74 PFSH Medical History Carcinoma, lung Personal history of nicotine dependence Asthma with chronic obstructive pulmonary disease (COPD) COPD (chronic obstructive pulmonary disease) Obesity (BMI 30.0-34.9) History of COVID-19 Left hip prosthetic joint infection Opioid dependence Shoulder pain Osteoarthritis Right leg swelling Arthritis, hip Surgical History Non-small cell cancer of left lung History of bronchoscopy History of total right hip replacement History of total left hip replacement History of lumbar surgery Family History Father Colon cancer Mother Cancer Social History Household Members Other:: , lives with and 10 yo daughter Housing: House Alcohol intake: never Patient Tobacco Use Status: Former Tobacco user Cigarette Packs Per Day: 1 Years Smoked: onset 16yo, 1ppd x 40yrs, 40pyh e-Cigarette/Vaping Use: Never Used Second Hand Smoke Exposure: No Current 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 Cognitive needs: No Hearing needs: No Vision needs: No Review of Systems Const Denies chills and Denies fever(s) Card Reports no additional complaints and Denies syncope Resp Denies cough GI Denies abdominal pain and Denies heartburn Reports as per HPI and Denies change in libido Neuro Denies syncope Psych Denies change in libido Endo Denies change in libido Physical Exam Const General: cooperative, healthy appearing, comfortable and no acute distress Orientation/consciousness: patient oriented x3 HEENT Face and sinus: Yes normal facial exam Mouth: moist mucous membranes Neck Neck: Yes normal visual inspection, Yes full ROM and Yes trachea midline Chest Chest palpation & inspection: normal inspection of the chest Resp Effort & Inspection: normal respiratory effort, able to speak in complete sentences and no respiratory distress GI Inspection: Yes normal to inspection Rectal Exam - Male: Yes normal sphincter tone and Yes prostate normal Male General Exam: Yes normal external exam Penis: normal penis and circumcised Meatus: meatus normal Scrotum: scrotum normal Testes: Testes normal Back/Spine/Pelvis Cervical Spine: normal cervical lordosis Thoracic/Lumbar Spine: thoracic and lumbar spine normal to inspection Skin General skin exam: no rashes or lesions noted Neuro General: patient oriented x3, gait normal, tone normal and moves all extremities Extrem General: Yes normal to inspection and Yes capillary refill normal Assessment & Plan Assessment & Plan (1) Elevated PSA: Code(s): R97.20 - Elevated prostate specific antigen [PSA] Category: Medical Plan Risks and benefits regarding trans rectal ultrasound with prostate biopsy were discussed. Options of continued surveillance, no treatment and biopsy were offered. The risks include but are not limited to, urinary tract infection, sepsis, difficulty urinating, bleeding into the rectum or bladder that requires intervention and transfusion,and failure to diagnose prostate cancer. The patient understands the options and the risks involved. They wish to proceed. Printed information was provided to ensure he remains off anticoagulation for the appropriate length of time. He may require cardiology or PCP clearance. An antibiotic will be administered prior to, and following the procedure Medications: New levofloxacin take 1 tablet day before procedure, 1 tablet day of procedure and 1 tablet day after procedure 500 mg PO DAILY 3 tabs 0RF 3 days R97.20 - Elevated prostate specific antigen [PSA] dutasteride 0.5 mg PO DAILY 30 caps 0RF 30 days N13.8 - Other obstructive and reflux uropathy, N40.1 - Benign prostatic hyperplasia with lower urinary tract symptoms, R97.20 - Elevated prostate specific antigen [PSA] bicalutamide 50 mg PO DAILY 30 tabs 0RF 30 days C61 - Malignant neoplasm of prostate, R97.20 - Elevated prostate specific antigen [PSA] Patient Instructions: Imaging studies, laboratory and physical exam results were discussed and reviewed in detail. No major barriers to patient understanding were identified. An opportunity to ask questions regarding the treatment plan was provided. All questions were answered. The patient expressed understanding and agreement with the above treatment plan. The patient is aware they should contact our office by phone for worsening of their current condition or the appearance of new urologic symptoms. Compliance is encouraged with any medications and followup testing that is ordered. It is a privilege to participate in the urologic care of your patient. If you have any questions or concerns regarding treatment for the above conditions, or other urologic issues, please do not hesitate to contact me. The office telephone contact is [phone]. This note is constructed using voice recognition software. While every effort has been made to ensure accuracy assistant manager quality management errors may have been included. Yours sincerely, Dr Jm Carver MD, [facility] - Urology Providers of Expert, Compassionate Care for the Genitourinary System Coding Level of Care Code New Pt Level 4 (09954) Diagnoses Elevated PSA R97.20
== END 2023-10-15 10:26 | disposition home or self-care (01) ==
LOC: HO.HUSH 09:46
PROVIDERS: PCP Nurse Practitioner Family; Visit Provider Urology
DX: R97.20 Elevated prostate specific antigen [PSA] (principal)
CPT/HCPCS: 99204

== ENCOUNTER → 2023-10-15 09:46 | Outpatient (BNVA) | payer MEDICARE, SELFPAY | PROVIDERS: PCP Nurse Practitioner Family; Visit Provider Urology | DX: R97.20 Elevated prostate specific antigen [PSA] (principal) | CPT/HCPCS: 99202 ==

== ENCOUNTER 2023-10-16 08:21 | Outpatient (AMB) | payer MEDICARE, SELFPAY ==
[2023-10-16 08:24] VITALS: BP 126/88; PULSE 96; O2SAT 98; BMI 32.4
--- NOTE | 2023-10-16 08:24 | MHC.OFFWIV ---
Intake Vital Signs 10/16/23 08:24 Height 5 ft 11 in Weight 232 lb 4 oz BMI 32.4 BP 126/88 Blood Pressure Location Lt brachial Position Sitting Pulse 96 Pulse Source Pulse Oximeter Pulse Oximetry (%) 98 Oxygen Delivery Method Room Air Intake Visit Reasons: EP Coughing up blood Intake Note: Pt presents to the office today for c/o coughing up bright red blood this morning. Pt currently has lung cancer. Patient Tobacco Use Status: Former Tobacco user Allergies Penicillins Allergy (Intermediate, Verified 10/16/23 08:26) Vomiting Bees Allergy (Unknown, Uncoded 10/16/23 08:26) anaphylaxis HPI HPI Comments History of Present Illness Details 68 y/o male patient who presents to the walk in c/o coughing up blood. Reports bleeding started this morning. H/o Lung CA and 3 weeks ago he had Lung Bx. He was told to expect some Bleeding with coughing after procedure. Reports Bright red blood. He does admit to forcefully coughing, and throat irritation since the procedure. Denies headaches, dizziness, fevers or chills. Denies nausea or vomiting. [facility] Medical History Carcinoma, lung Personal history of nicotine dependence Asthma with chronic obstructive pulmonary disease (COPD) COPD (chronic obstructive pulmonary disease) Obesity (BMI 30.0-34.9) History of COVID-19 Left hip prosthetic joint infection Opioid dependence Shoulder pain Osteoarthritis Right leg swelling Arthritis, hip Surgical History Non-small cell cancer of left lung History of bronchoscopy History of total right hip replacement History of total left hip replacement History of lumbar surgery Family History Father Colon cancer Mother Cancer Social History Household Members Other:: , lives with and 10 yo daughter Housing: House Alcohol intake: never Patient Tobacco Use Status: Former Tobacco user Cigarette Packs Per Day: 1 Years Smoked: onset 16yo, 1ppd x 40yrs, 40pyh e-Cigarette/Vaping Use: Never Used Second Hand Smoke Exposure: No Current 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 Has a [employer]- self Cognitive needs: No Hearing needs: No Vision needs: No Review of Systems Const All systems reviewed & are unremarkable except as noted in HPI and below Physical Exam Vital Signs: Last Vital Signs Pulse 96 10/16/23 08:24 BP 126/88 10/16/23 08:24 Pulse Ox 98 10/16/23 08:24 Oxygen Delivery Method Room Air 10/16/23 08:24 BMI result Body Mass Index 32.4 Const General: cooperative and no acute distress Orientation/consciousness: patient oriented x3 Resp Effort & Inspection: normal respiratory effort and able to speak in complete sentences Auscultation: clear to auscultation bilaterally, no crackles, no rales, no rhonchi and no wheezes Cardio Heart sounds: S1 normal heart sound present and S2 normal heart sound present Neuro General: patient oriented x3 Psych Speech and movement: Normal speech and movement present Assessment & Plan Assessment & Plan (1) Cough with hemoptysis: Code(s): R04.2 - Hemoptysis Plan: Advised Pt to call Pulmonology regarding bleeding. Possibly from Procedure Bx lung 3 weeks. Active bleeding. Not old blood. Vitals Stable. Advised to call 911 or ED visit if persists. Coding Level of Care Code Est Pt Level 3 (72748) Diagnoses Cough with hemoptysis R04.2 Time Spent (min) 15
== END 2023-10-16 08:44 | disposition home or self-care (01) ==
PROVIDERS: PCP Nurse Practitioner Family; Visit Provider Nurse Practitioner Family
DX: R04.2 Hemoptysis (principal)
CPT/HCPCS: 99213

== ENCOUNTER 2023-10-16 09:21 | Emergency (ER) | payer MEDICARE, SELFPAY ==
--- NOTE | ~2023-10-16 | CT_ITS ---
EXAMINATION: CT ANGIOGRAM CHEST CLINICAL INFORMATION: Chest pain COMPARISON: Screening CT scan of lungs on 07/29/2023 TECHNIQUE: Multiple axial images were obtained through the chest after the administration of 70 mL of Omnipaque 350 intravenous contrast. Extensive vascular post-processing including two-dimensional and three-dimensional reformatted images were created and reviewed on an independent workstation. This CT examination was performed using dose optimization techniques as appropriate, variously including the following: *Automated exposure control *Adjustment of mA and/or kV according to patient size (this includes techniques or standardized protocols for targeted exams where dose is matched to indication/reason for exam; i.e. extremities or head) *Use of iterative reconstruction technique DLP: 337 mGy-cm FINDINGS: PULMONARY ARTERIES: The main pulmonary arteries, lobar and segmental arterial branches show adequate enhancement without filling defects. Main pulmonary trunk measures 324 Hounsfield units in mean attenuation. LUNGS: A large spiculated hypoenhancing mass lesion is seen in left lower lobe superior and posterior basal segments, encasing the segmental pulmonary arteries, measuring 8.5 cm in AP diameter, 4.4 cm in width, 9.1 cm in vertical height (previously 5.4 x 3.7 x 5.2 cm). PLEURA: Tiny bilateral pleural effusions are present. No pneumothorax is seen. PERICARDIUM: No pericardial effusion is seen. MEDIASTINUM AND ZULMA: Abnormally enlarged aortopulmonary window lymph node measures 1.1 cm in short axis, series 5 image #20. Additional small aortopulmonary window lymph nodes are present. Enlarged subcarinal lymph node measuring 1.6 cm in short axis is seen, series 5 image #24. Enlarged proximal left lower peribronchial lymph node measures 1.0 cm in short axis, series 5 image #27. TRACHEOBRONCHIAL TREE: Trachea and bilateral mainstem bronchi are patent. THORACIC AORTA: The thoracic aorta is normal in size and smoothly patent. CORONARY ARTERY CALCIFICATIONS: Present CHEST WALL AND LOWER NECK: The subcutaneous and muscular chest wall are intact with no focal lesion. No abnormal mass lesion could be seen in the visualized lower neck. BONES: No fracture or dislocation. No focal bone lesion diagnostic of metastatic disease could be seen in the thorax. VISUALIZED UPPER ABDOMEN: Bilateral adrenal glands are not enlarged. There is hepatic steatosis, mean attenuation of 34.6 Hounsfield units in spite of intravenous contrast enhancement. CT/CT angio chest PE protocol IMPRESSION: 1. No evidence of pulmonary embolism. 2. Interval marked increase in size of left lower lobe spiculated mass lesion encasing left lower lobe posterior basal segmental pulmonary arteries, highly suspicious of lung carcinoma. 3. Interval appearance of Abnormally enlarged mediastinal and left lower lobe peribronchial lymph nodes, suspicious of metastasis. 4. Hepatic steatosis. Fleischner guidelines were followed. Electronically signed by: Ashley Perez MD 10/16/2023 11:50 AM EDT
[2023-10-16 09:34] VITALS: BP 122/73; PULSE 106; RESP 22; TEMP 36.8; O2SAT 98; BMI 32.7
[2023-10-16 09:42] VITALS: BP 137/71; PULSE 91; RESP 18; TEMP 36.9
--- NOTE | 2023-10-16 09:58 | PC.NURSE ---
Pt comes to ED today from home. Reports a Hx of Lung CA with a biopsy recently completed. States he was recently placed on PCN for bumps to his scalp in which caused him to have GI upset and cough. Pt reports d/t cough, he feels that the scab to his biopsy site was dislodge and he has been coughing up blood/clots. VSS, afebrile, A&Ox3
[2023-10-16 10:13] VITALS: BP 129/60; PULSE 91; RESP 18; O2SAT 97
--- NOTE | 2023-10-16 10:17 | ED.GENADULT ---
HPI - General Adult General Chief complaint: General Medical Stated complaint: Spitting up blood Time Seen by Provider: 10/16/23 09:59 Source: patient Mode of arrival: ambulatory Limitations: no limitations History of Present Illness HPI narrative: This is a very pleasant 68 years old the patient with history of left lobe non-small cell CA status post a recent biopsy presented to the emergency department with the chief complaint of hemoptysis. Denies any fever chills.Describe the size of 1/2 dollar size he had few episodes of hemoptsis this AM and in the ED as well Onset (ago): hour(s) (3) Radiation: non-radiation Severity: moderate Pain Consistency: constant Relieving factors: none Exacerbating factors: none Related Data Home Medications ?Medication ?Instructions ?Recorded ?Confirmed doxycycline monohydrate 100 mg 100 mg PO BID 10/02/23 capsule Previous Rx's ?Medication ?Instructions ?Recorded albuterol sulfate 90 mcg/actuation 2 puff inhalation Q8H PRN 01/01/22 aerosol inhaler (ProAir HFA) shortness of breath or wheezing 30 days #8.5 grams fluticasone propionate 115 2 puff inhalation BID ASTHMA/COPD 04/01/22 mcg-salmeterol 21 mcg/actuation 30 days #12 grams HFA inhaler (Advair HFA) ibuprofen 600 mg tablet 600 mg PO Q6H PRN pain #14 tabs 11/13/22 tamsulosin 0.4 mg capsule 0.4 mg PO BEDTIME 30 days #30 caps 09/24/23 cephalexin 500 mg capsule 500 mg PO BID 14 days #28 caps 10/02/23 bicalutamide 50 mg tablet 50 mg PO DAILY 30 days #30 tabs 10/15/23 dutasteride 0.5 mg capsule 0.5 mg PO DAILY 30 days #30 caps 10/15/23 levofloxacin 500 mg tablet 500 mg PO DAILY 3 days #3 tabs 10/15/23 Allergies Allergy/AdvReac Type Severity Reaction Status Date / Time Penicillins Allergy Intermediate Vomiting Verified 10/16/23 09:39 Bees Allergy Unknown anaphylaxis Uncoded 10/16/23 08:26 Review of Systems Cardiovascular: Cardiovascular: Reports no additional cardiovascular complaints Respiratory: Respiratory: Reports as per HPI, Reports no additional respiratory complaints and Reports other [facility] Past Medical History Attestation statement: The following information was validated with the patient. Source: unable to obtain Medical History Carcinoma, lung Personal history of nicotine dependence Asthma with chronic obstructive pulmonary disease (COPD) COPD (chronic obstructive pulmonary disease) Obesity (BMI 30.0-34.9) History of COVID-19 Left hip prosthetic joint infection Opioid dependence Shoulder pain Osteoarthritis Right leg swelling Arthritis, hip Surgical History Non-small cell cancer of left lung History of bronchoscopy History of total right hip replacement History of total left hip replacement History of lumbar surgery Family History Family History Father Colon cancer Mother Cancer Social History Social History Household Members Other:: , lives with and 10 yo daughter Housing: House Alcohol intake: never Patient Tobacco Use Status: Former Tobacco user Cigarette Packs Per Day: 1 Years Smoked: onset 16yo, 1ppd x 40yrs, 40pyh Smoked in Last 30 Days: No e-Cigarette/Vaping Use: Never Used Second Hand Smoke Exposure: No Use of substances other than those prescribed or required for medical reasons: No Advance Directives: Yes Advance Directives Information Provided: No Advance Directives on File: No Current 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 Cognitive needs: No Hearing needs: No Vision needs: No Physical Exam ED Vital Signs: Vital Signs - 24 hr 10/16/23 09:34 10/16/23 09:42 10/16/23 10:13 Temperature 98.3 F 98.4 F Pulse Rate 106 H 91 91 Respiratory Rate 22 H 18 18 Blood Pressure 122/73 137/71 129/60 Pulse Oximetry 98 97 Oxygen Delivery Method Room Air Room Air Room Air 10/16/23 12:25 Temperature Pulse Rate 86 Respiratory Rate 20 Blood Pressure 117/65 Pulse Oximetry 98 Oxygen Delivery Method Room Air BMI result Body Mass Index 32.7 Const General: cooperative Nutritional Appearance: average body habitus Orientation/consciousness: patient oriented x3 HENMT Head: Yes normal to inspection Mouth: Normal oral and palatal mucosa present Neck Neck: Yes normal visual inspection Chest Chest palpation & inspection: normal inspection of the chest Resp Effort & Inspection: normal respiratory effort Auscultation: rhonchi Cardio Jugular venous distension: no JVD Rate: regular rate Rhythm: regular rhythm GI Inspection: Yes normal to inspection Percussion: Yes normal to percussion Skin General skin exam: no rashes or lesions noted Lesions: no lesions Neuro General: patient oriented x3 Course Reevaluation(s) Reevaluation #1: I consulted thoracic surgery Dr Hayes, ct chest reviewed with him, per thoracic surgery patient should be admitted in hospital where 24 hour IR is available, at [facility] there is no 24 hour IR, I called [facility] they are a capacity unable to accept the patient, I called [facility] I spoke with the assessment coordinator he was accepted by Dr. Gomez in the emergency department. Time: 13:12 Medications Administered Discontinued Medications Generic Name Dose Route Start Last Admin Trade Name Freq PRN Reason Stop Dose Admin Sodium Chloride 1,000 mls @ 999 mls/hr 10/16/23 10:15 10/16/23 10:30 Ns IVCONT 10/16/23 11:15 999 mls/hr .Q1H1M ALLYSSA Administration Iohexol 100 ml 10/16/23 10:46 10/16/23 10:46 Iohexol 350 Mg/Ml 100 Ml Infus..Btl IV 10/16/23 10:47 65 ml ONCE ONE Administration Medical Decision Making Medical Decision Making [facility] Narrative: Patient presented with hemoptysis will do CTA labs are reassess Differential Diagnosis Differential Diagnoses: The differential diagnosis associated with the presentation includes PE/bronchitis/pneumonia Consult Healthcare Provider Management of the patient was 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 Dr Hayes recommend transfer to a center where IR is available shoud his condition deteriorate Lab Data 10/16/23 10:54 10/16/23 10:54 Labs: Lab Results 10/16/23 Range/Units 10:54 WBC 8.8 (4.8-10.8) X10*3/uL RBC 3.96 L (4.60-5.80) X10*6/uL Hgb 10.4 L (14.0-18.0) g/dl Hct 32.4 L (42.0-52.0) % MCV 81.8 (80.0-98.0) fL MCH 26.3 L (27.0-33.0) pg MCHC 32.1 (31.0-36.0) g/dl RDW 15.3 (11.0-16.0) % Plt Count 283 (160-400) X10*3/uL MPV 8.1 L (9.4-12.4) fL Immature Gran % (Auto) 1.6 H (0.0-0.4) % Neut % (Auto) 67.7 (45-73) % Lymph % (Auto) 19.3 L (20-40) % Kern % (Auto) 8.9 (2-11) % Eos % (Auto) 2.0 (0-4) % Baso % (Auto) 0.5 (0-2) % Lymph # (Auto) 1.7 (1.2-4.9) X10*3/uL Kern # (Auto) 0.8 (0.1-1.2) X10*3/uL Eos # (Auto) 0.2 (0.0-0.4) X10*3/uL Baso # (Auto) 0.0 (0.0-0.2) X10*3/uL Abs Immat Gran (auto) 0.14 H (0.00-0.03) X10*3/uL Absolute Neuts (auto) 6.0 (2.0-8.3) x10*3/uL Absolute Nucleated RBC 0.000 (0.0-0.012) X10*3/uL Nucleated RBC % (auto) 0.0 (0.0-0.2) /100WBC PT 17.2 H (11.1-13.3) SEC INR 1.4 H (0.9-1.1) APTT 31.1 (26.0-36.8) SEC Sodium 137 (135-145) mmol/L Potassium 4.6 (3.3-5.1) mmol/L Chloride 104 (96-108) mmol/L Carbon Dioxide 27 (22-29) mmol/L Anion Gap 11 L (12-20) BUN 21 H (9-16) mg/dL Creatinine 1.04 (0.5-1.4) mg/dL Estim Creat Clear Calc 81.9 Estimated GFR > 60 Random Glucose 92 (60-115) mg/dL Calcium 9.9 (8.4-10.2) mg/dL Total Bilirubin 0.2 (0.0-1.0) mg/dL AST 31 (5-37) U/L ALT 39 (0-40) U/L Alkaline Phosphatase 169 H (39-117) U/L Troponin I High Sens 5.7 (<3.5-35.0) ng/L Total Protein 7.1 (6.5-8.0) g/dL Albumin 3.2 L (3.5-5.0) g/dL Independent Interpretation I performed an independent interpretation of an: CT Scan Interpretation: CT/CT angio chest PE protocol IMPRESSION: 1. No evidence of pulmonary embolism. 2. Interval marked increase in size of left lower lobe spiculated mass lesion encasing left lower lobe posterior basal segmental pulmonary arteries, highly suspicious of lung carcinoma. 3. Interval appearance of Abnormally enlarged mediastinal and left lower lobe peribronchial lymph nodes, suspicious of metastasis. 4. Hepatic steatosis. Fleischner guidelines were followed. Electronically signed by: Ashley Perez MD 10/16/2023 11:50 AM EDT RP Radiology Impression Discussion of test interpretation with radiology: I have reviewed the radiologist's reading. Chronic Conditions Patient?s care impacted by: Cancer Critical Care Time Critical Care Time Critical Care Time: Yes Total Critical Care Time: 60 Attestation: hemoptsisi,taking care of the pt speaking with thoracic surgery,arranging transfer Discharge Plan Discharge Clinical Impression: Major hemoptysis Patient Disposition: er [facility] Transfer Details: pt requested by Dr Hayes Prescriptions: No Action albuterol sulfate [ProAir HFA] 90 mcg/actuation HFA aerosol inhaler 2 puff inhalation Q8H PRN (Reason: shortness of breath or wheezing) 30 Days Qty: 8.5 4RF tamsulosin 0.4 mg capsule 0.4 mg PO BEDTIME 30 Days Qty: 30 2RF doxycycline monohydrate 100 mg capsule 100 mg PO BID cephalexin 500 mg capsule 500 mg PO BID 14 Days Qty: 28 0RF ibuprofen 600 mg tablet 600 mg PO Q6H PRN (Reason: pain) Qty: 14 0RF Advair HFA 115-21 mcg/actuation HFA aerosol inhaler 2 puff inhalation BID 30 Days Qty: 12 3RF levofloxacin 500 mg tablet 500 mg PO DAILY 3 Days Qty: 3 0RF Rx Instructions: take 1 tablet day before procedure, 1 tablet day of procedure and 1 tablet day after procedure dutasteride 0.5 mg capsule 0.5 mg PO DAILY 30 Days Qty: 30 0RF bicalutamide 50 mg tablet 50 mg PO DAILY 30 Days Qty: 30 0RF Print Language: Greenlandic
[2023-10-16] MEDS: 0.9 % Sodium Chloride 1,000 ML 999 ML IVCONT (10:30)
[2023-10-16] MEDS: iohexoL 350 MG/ML 100 ML INFUS..BTL IV (10:46)
[2023-10-16 10:56] LABS: MANUAL DIFF FLAG NO
[2023-10-16 11:04] LABS: Basophils Percent Auto 0.5 % (0-2); Eosinophils Absolute Auto 0.2 X10*3/uL (0.0-0.4); Hematocrit 32.4 % (42.0-52.0); Hemoglobin 10.4 g/dl (14.0-18.0); Imm Gran Abs Auto 0.14 X10*3/uL (0.00-0.03); Imm Gran Pct Auto 1.6 % (0.0-0.4); Lymphocytes Absolute Auto 1.7 X10*3/uL (1.2-4.9); Lymphocytes Percent Auto 19.3 % (20-40); Mean Corpuscular HGB Conc 32.1 g/dl (31.0-36.0); Mean Corpuscular Hemoglobin 26.3 pg (27.0-33.0); Mean Corpuscular Volume 81.8 fL (80.0-98.0); Mean Platelet Volume 8.1 fL (9.4-12.4); Monocytes Absolute Auto 0.8 X10*3/uL (0.1-1.2); Monocytes Percent Auto 8.9 % (2-11); Neutrophils Percent Auto 67.7 % (45-73); Platelet Count 283 X10*3/uL (160-400); Red Blood Count 3.96 X10*6/uL (4.60-5.80); Red Cell Distribution Width 15.3 % (11.0-16.0); White Blood Count 8.8 X10*3/uL (4.8-10.8)
[2023-10-16 11:07] LABS: INTERNATIONAL NORM RATIO 1.4 (0.9-1.1); Prothrombin Time 17.2 SEC (11.1-13.3)
[2023-10-16 11:09] LABS: Partial Thromboplastin Time 31.1 SEC (26.0-36.8)
[2023-10-16 11:22] LABS: Alanine Aminotransferase 39 U/L (0-40); Albumin Level 3.2 g/dL (3.5-5.0); Alkaline Phosphatase 169 U/L (39-117); Anion Gap 11 (12-20); Aspartate Amino Transferase 31 U/L (5-37); Bilirubin Total 0.2 mg/dL (0.0-1.0); Blood Urea Nitrogen 21 mg/dL (9-16); Calcium 9.9 mg/dL (8.4-10.2); Carbon Dioxide 27 mmol/L (22-29); Chloride 104 mmol/L (96-108); Creatinine Clr Calc Pharmacy 81.9; Estimated Glomerular Filt Rate > 60; Glucose Random 92 mg/dL (60-115); Potassium 4.6 mmol/L (3.3-5.1); Sodium 137 mmol/L (135-145); Total Protein 7.1 g/dL (6.5-8.0)
[2023-10-16 11:29] LABS: Troponin-I High Sensitivity 5.7 ng/L (<3.5-35.0)
[2023-10-16 12:25] VITALS: BP 117/65; PULSE 86; RESP 20; O2SAT 98
--- NOTE | 2023-10-16 13:12 | PC.NURSE ---
Call placed to [facility] ED for RN to RN report Spoke with EYAL Goldman: review of Pts medical history completed.
== END 2023-10-16 13:40 | disposition short-term general hospital (02) ==
PROVIDERS: Emergency Provider Emergency Medicine; PCP Nurse Practitioner Family
DX: R04.2 Hemoptysis (principal); C61 Malignant neoplasm of prostate; C78.02 Secondary malignant neoplasm of left lung; C79.51 Secondary malignant neoplasm of bone; J44.9 Chronic obstructive pulmonary disease, unspecified; F11.20 Opioid dependence, uncomplicated; Z87.891 Personal history of nicotine dependence
CPT/HCPCS: 36415; 71275; 80053; 84484; 85025; 85610; 85730; 99284; 99285; Q9967

== ENCOUNTER 2023-10-21 07:48 | Outpatient (REF) | payer MEDICARE, SELFPAY | END 2023-10-21 07:49 | disposition home or self-care (01) | LOC: HO.US 07:48 | PROVIDERS: PCP Nurse Practitioner Family; Visit Provider Urology | DX: C34.92 Malignant neoplasm of unspecified part of left bronchus or lung (principal) | CPT/HCPCS: 99212 ==

== ENCOUNTER 2023-10-21 09:05 | Outpatient (AMB) | payer MEDICARE, SELFPAY ==
--- NOTE | 2023-10-21 09:04 | A.OFFVIS_ITS ---
Vital Signs 10/21/23 09:09 Height 5 ft 11 in Weight 234 lb BMI 32.6 BP 146/68 H Blood Pressure Location Rt brachial Position Sitting Pulse 96 Intake Visit Reasons: scalp cyst Intake Note: Patient referred for cysts on scalp. Almost cleared. Patient was recently admitted to [facility] for coughing up blood. Was there for 5d. Feeling better. Ear Nose And Throat Specialist Required: No Accompanied by: Self / Same As Patient Allergies Penicillins Allergy (Intermediate, Verified 10/21/23 09:11) Vomiting Bees Allergy (Unknown, Uncoded 10/21/23 09:11) anaphylaxis HPI Comments Details: Patient presents here to over the results of his PET scan which was done yesterday. Unfortunately Radiology facility and [place] was called and they have not read this skin yet. [facility] Medical History Carcinoma, lung Personal history of nicotine dependence Asthma with chronic obstructive pulmonary disease (COPD) COPD (chronic obstructive pulmonary disease) Obesity (BMI 30.0-34.9) History of COVID-19 Left hip prosthetic joint infection Opioid dependence Shoulder pain Osteoarthritis Right leg swelling Arthritis, hip Surgical History Non-small cell cancer of left lung History of bronchoscopy History of total right hip replacement History of total left hip replacement History of lumbar surgery Family History Father Colon cancer Mother Cancer Social History Household Members Other:: , lives with and 10 yo daughter Housing: House Alcohol intake: never Patient Tobacco Use Status: Former Tobacco user Cigarette Packs Per Day: 1 Years Smoked: onset 16yo, 1ppd x 40yrs, 40pyh e-Cigarette/Vaping Use: Never Used Second Hand Smoke Exposure: No Current 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 We will contact patient once they are obtained. Coding Level of Care Code Est Pt Level 3 (20943) Diagnoses Non-small cell cancer of left lung C34.92
[2023-10-21 09:09] VITALS: BP 146/68; PULSE 96; BMI 32.6
== END 2023-10-21 09:26 | disposition home or self-care (01) ==
PROVIDERS: PCP Nurse Practitioner Family; Visit Provider Surgery
DX: C34.92 Malignant neoplasm of unspecified part of left bronchus or lung (principal)
CPT/HCPCS: 99212

== ENCOUNTER → 2023-10-22 14:45 | Outpatient (BNV) | payer MEDICARE, SELFPAY | PROVIDERS: PCP Nurse Practitioner Family; Referring Provider Surgery; Visit Provider Internal Medicine Medical Oncology | DX: C34.92 Malignant neoplasm of unspecified part of left bronchus or lung (principal); C61 Malignant neoplasm of prostate; C79.51 Secondary malignant neoplasm of bone | CPT/HCPCS: 99204; 99213 ==

== ENCOUNTER 2023-10-28 07:37 | Outpatient (REF) | payer MEDICARE, SELFPAY ==
[2023-10-28] MEDS: Lidocaine HCl 1 % MPF 5 ML VIAL 10 ML SUBCUT (08:28)
--- NOTE | 2023-10-28 08:48 | P.OP_ITS ---
Operative Note Operative Note Date of Service: 10/28/23 Narrative: Preoperative diagnosis: Elevated PSA Postoperative diagnosis: Elevated PSA Procedure: 1. transrectal ultrasound measurement of prostate 2. transrectal ultrasound-guided pudendal nerve block 3. transrectal ultrasound-guided prostate biopsy 12 core Surgeon: Dr. Jm Carver Anesthetic: 10cc 1% lidocaine Indications for procedure: Elevated PSA 84 Counselling: Technical aspects, risks and benefits of proposed procedure were discussed in full. All questions have been answered, written consent has been obtained and patient agrees to proceed. Procedure: The patient was brought into the procedure area and placed in a left lateral decubitus position. Patient identity confirmed. Perioperative antibiotics confirmed. Safety pause time out performed. YUDELKA was performed to dilate rectal sphincter - them prostate Iodine 10cc with 60 cc gel was placed per rectum to reduce infection risk using a catheter tip syringe. 8 Hz [place] rectal end-fire ultrasound probe was placed transrectally without difficulty. The prostate was visualized. Seminal vesicles were normal. Prostate margins were clearly demarcated. Bladder was seen superiorly. No cystic structures were noted Extensive calcifications were noted at the surgical margin The prostate was firm. Unable to be deformed. Heterogeneous in nature. Consistent with probable cancer The prostate was measured in 3 dimensions Prostatic Width: 5.1 cm Prostatic Height: 4.1 cm Urethral Length: 5.1 cm Total volume equals : 56 ml An ultrasound-guided pudendal nerve block was performed using a 22 gauge spinal needle in the sagittal plane. 4 cc of 1% lidocaine placed at the junction of ea ch seminal vesicle and 2 cc placed at the apex of the prostate. A 12 core biopsy was performed with 6 cores each side using an 18 gauge prostate biopsy gun. Two cores each were taken at the prostate apex, mid and base on each side. Cores were spaced between lateral and medial aspects. Each core was examined as placed on specimen foam as part of software quality automation engineer to ensure a minimum 1 cm of length and minimal discontinuity. He tolerated the procedure well with minimal rectal bleeding. Blood pressure remained stable following procedure. He was able to ambulate to bathroom after 5 minutes. Printed instructions regarding antibiotic use and common adverse events from the procedure such as low-grade temperature, potential infection and bleeding were given. He understands to call the office or go to an emergency room should any of these events arise. Pathology: 12 core prostate biopsy. CPT code 40028: Transrectal ultrasound; this is a diagnostic test for evaluation of the prostate and surrounding structures, looking for abnormalities or suspicious areas worrisome for cancer CPT code 94810: Biopsy, prostate; needle or punch, single or multiple, any approach CPT code 11535: Ultrasonic guidance for needle placement (eg, biopsy, aspiration, injection, localization device), imaging supervision and interpretation
== END 2023-10-28 07:38 | disposition home or self-care (01) ==
LOC: HO.US 07:37
PROVIDERS: PCP Nurse Practitioner Family; Visit Provider Urology
DX: R97.20 Elevated prostate specific antigen [PSA] (principal)
CPT/HCPCS: 55700; 76942; 88305

== ENCOUNTER → 2023-10-28 07:37 | Outpatient (BNV) | payer MEDICARE, SELFPAY | PROVIDERS: PCP Nurse Practitioner Family; Visit Provider Urology | DX: R97.20 Elevated prostate specific antigen [PSA] (principal) | CPT/HCPCS: 55700; 76872; 76942 ==

== ENCOUNTER 2023-11-02 10:53 | Day surgery (SDC) | payer MEDICARE, SELFPAY ==
--- NOTE | ~2023-11-02 | CT_ITS ---
-Year-old man with prostate and lung cancer who presents with multiple bone metastases on PET scan. Oncology requests biopsy to determine etiology of the metastases. PROCEDURES: 1. Limited preprocedure CT of the pelvis. Permanent images saved in PACS. 2. 11 g core biopsy of the left posterior iliac spine 3. 13 g aspiration of the left posterior iliac spine CLINICIANS: Ignacio Boswell PA-C Preprocedural imaging reviewed with Dr. Adams MEDICATIONS: -Versed 2 mg, Fentanyl 100 mcg, and lidocaine 1% 10 mL SQ -Antibiotics: None -For additional details, please see nursing flowsheet. COMPLICATIONS: None ESTIMATED BLOOD LOSS: < 5 ml CONTRAST: None SPECIMENS: 11 g cores placed in formalin. 13-gauge aspiration placed in CytoLyt. MODERATE SEDATION TIME: 28 min PROCEDURE NOTE: The procedure, risks, benefits, and alternatives were carefully explained to the patient and written informed consent was obtained. The patient was placed prone on the CT table. A timeout was performed. A limited CT of the pelvis was performed to localize left posterior iliac spine and choose appropriate needle entry and trajectory. The patient was prepped and draped in usual sterile fashion. The skin, subcutaneous tissues, and periosteum were anesthetized with lidocaine. Under CT guidance, an 11-gauge bone biopsy needle was advanced into the superior/medial posterior iliac spine. Multiple core samples were attempted, however, minimal sample was able to be obtained. Next, the 13-gauge bone biopsy needle was advanced through the 11-gauge trocar. An aspiration of the marrow was obtained and placed in CytoLyt for cytology. The needles were removed. A dry dressing was applied and secured with Tegaderm. There were no immediate complications. The patient was stable after the procedure and was transferred to the post anesthesia care unit. The procedure was done under moderate sedation with a dedicated nurse for monitoring of vital signs. CT/CT biopsy bone superficial Impression: CT-guided left posterior iliac spine core biopsy and aspiration. This procedure was performed by Ignacio Boswell PA-C and supervised by Dr. Adams. Electronically signed by: Lalo Hough MD 11/11/2023 02:38 PM EDT Workstation: [id number]
[2023-11-02 11:12] VITALS: BP 125/55; PULSE 80; RESP 18; TEMP 36.6; O2SAT 97; BMI 31.8
--- NOTE | 2023-11-02 12:39 | MHC.SHP ---
Pre-Procedural Eval Section A - 24 Hr Update-Section A only Date of Service: 11/02/23 Section B - Complete if H&P > 30 days Chief Complaint: BONE SUPERFICIAL, MALIGNANT NEOPLASM Details of Present Illness: 68 y/o man with lung cancer and prostate cancer who presents with PET imaging concerning for bone metastases. Relevant Family History (Specify if Yes): No Relevant Social History: Tobacco Use (quit 3 yrs ago) Present Medications: see Short Stay Collaborative assessment Medical History: Significant History History of Previous Operations: Relevant previous surgery/procedure and date(s) Allergies: Allergies Allergy/AdvReac Type Severity Reaction Status Date / Time Penicillins Allergy Intermediate Vomiting Verified 10/22/23 14:54 Bees Allergy Unknown anaphylaxis Uncoded 10/22/23 14:54 Review of Systems Sugical H&P ROS: Negative: Constitution and Cardiovascular and Yes, Specify: Musculoskeletal (rib pain) Exam Surgical H&P Exam: Normal: Heart, Normal: Skin and Normal: Neurological and Significant Findings: Lungs (mild b/l expiratory wheezes) Plan 68 y/o man with prostate and lung cancer who presents with bone metastases on PET. -CT bone biopsy (left iliac spine) Time Spent With Patient Time: Total time managing care of this patient today ____ minutes.
[2023-11-02 14:25] VITALS: BP 151/66; PULSE 82; RESP 20; TEMP 36.9; O2SAT 97
[2023-11-02 14:40] VITALS: BP 136/68; PULSE 78; RESP 20; TEMP 36.9; O2SAT 97
== END 2023-11-02 15:20 | disposition home or self-care (01) ==
PROVIDERS: Radiology Vascular & Interventional Radiology; PCP Nurse Practitioner Family; Visit Provider Internal Medicine Medical Oncology
DX: C79.51 Secondary malignant neoplasm of bone (principal); C34.92 Malignant neoplasm of unspecified part of left bronchus or lung; C61 Malignant neoplasm of prostate; F11.20 Opioid dependence, uncomplicated; J44.9 Chronic obstructive pulmonary disease, unspecified; Z96.643 Presence of artificial hip joint, bilateral; Z79.899 Other long term (current) drug therapy; Z88.0 Allergy status to penicillin; Z98.890 Other specified postprocedural states; Z87.891 Personal history of nicotine dependence
CPT/HCPCS: 20220; 77012; 88173; 88305; 88307; 88311; 88341; 88342; 99152; 99153; J2250; J2310; J3010

== ENCOUNTER → 2023-11-02 12:42 | Outpatient (BNV) | payer MEDICARE, SELFPAY | PROVIDERS: PCP Nurse Practitioner Family; Visit Provider Radiology Vascular & Interventional Radiology | DX: C61 Malignant neoplasm of prostate (principal); C79.52 Secondary malignant neoplasm of bone marrow | CPT/HCPCS: 38222; 77012; 99152 ==

== ENCOUNTER 2023-11-05 09:04 | Outpatient (AMB) | payer MEDICARE, SELFPAY ==
[2023-11-05 09:05] VITALS: BMI 31.2
--- NOTE | 2023-11-05 09:05 | MHC.OFFVIS ---
Vital Signs 11/05/23 09:05 Height 5 ft 11 in Weight 224 lb BMI 31.2 Intake Visit Reasons: Pre Op Freddy VATS Aircraft Engine Mechanic Required: No Allergies Penicillins Allergy (Intermediate, Verified 11/05/23 09:05) Vomiting Bees Allergy (Unknown, Uncoded 11/05/23 09:05) anaphylaxis HPI Comments Details: 11/05/2023 the patient has a time visit today for preoperative evaluation. 68-year-old gentleman with a history of smoking was found to have a left lower lobe pulmonary nodule. Spiculated in nature concerning in appearance. Therefore, the patient underwent a bronchoscopy. He was found to have endobronchial disease in the superior segment of the left lower lobe. The patient did undergo endobronchial ultrasound bronchoscopy with needle aspiration consistent [id number] lung cancer. Ultimately the patient underwent a PET scan demonstrating significant bony metastases and also an enlarged prostate. Subsequently diagnosed with prostate cancer. The bone biopsies were consistent with metastatic prostate. Therefore, the lung cancer is limited to that left lower lobe area. No significant FDG activity of the lymph nodes. During the evaluation the patient did have an episode of hemoptysis. He was considered massive. He was seen at the ER where he was subsequently transferred to a tertiary center because of the degree of his hemoptysis. Ultimately he went to [facility] where he was evaluated and treated. He did not require any intervention her. The bleeding stopped on his own. This happened a couple months after having the endobronchial biopsies so therefore I do not believe that is related to the biopsies. Though I do believe that due to the endobronchial disease in the nature of the cancer I am concerned that he is at risk of having hemoptysis again. The area appears to be significantly friable. He does try not to cough now too hard. In the morning he still may see some specks of blood when he is clearing his secretions. But at this point he is stable. We did look at his pulmonary function studies that he had last year. He has only a mild obstruction consistent mild COPD. Diffusing capacity is only mildly decreased. Therefore he should be able to tolerate surgery from a pulmonary standpoint well. [facility] Medical History (Updated 11/05/23 @ 09:26 by Brady Paula MD) Hemoptysis Carcinoma, lung Personal history of nicotine dependence Asthma with chronic obstructive pulmonary disease (COPD) COPD (chronic obstructive pulmonary disease) Obesity (BMI 30.0-34.9) History of COVID-19 Left hip prosthetic joint infection Opioid dependence Shoulder pain Osteoarthritis Right leg swelling Arthritis, hip Surgical History (Updated 10/22/23 @ 16:46 by Jamey Millan MD) Non-small cell cancer of left lung History of bronchoscopy History of total right hip replacement History of total left hip replacement History of lumbar surgery Family History Father Colon cancer Mother Cancer Social History (Updated 10/22/23 @ 14:53 by Amanda Berman) Household Members: Family Household Members Other:: , lives with and 10 yo daughter Housing: House Alcohol intake: never Patient Tobacco Use Status: Former Tobacco user Cigarette Packs Per Day: 1 Years Smoked: onset 16yo, 1ppd x 40yrs, 40pyh e-Cigarette/Vaping Use: Never Used Second Hand Smoke Exposure: No service: No Current 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 Cognitive needs: No Hearing needs: No Vision needs: No Review of Systems Const Denies fever(s) Eyes Reports no additional complaints ENT Denies sore throat Card Denies chest pain Resp Reports cough, Reports hemoptysis and Denies wheezing GI Reports no additional complaints Reports as per HPI Musc Reports no additional complaints Skin/Breast Denies rash Endo Reports no additional complaints Albert/Lymph Denies lymphadenopathy Aller/Immun Denies wheezing Physical Exam Vital Signs: BMI result Body Mass Index 31.2 Const General: comfortable Orientation/consciousness: patient oriented x3 Resp Effort & Inspection: normal respiratory effort and able to speak in complete sentences Neuro General: patient oriented x3 Telehealth Telehealth Telehealth Platform: Telephone Location of provider rendering services: practice address Location of patient: address on file Patient Identification confirmed using: Name, : Yes Telehealth method: voice only Patient verbally consented to treatment: Yes Patient verbally consented to billing insurance company: Yes Patient informed of any privacy concerns related to visit: Yes Assessment & Plan Assessment & Plan (1) Pre-op chest exam: Code(s): Z01.811 - Encounter for preprocedural respiratory examination Category: Medical (2) Non-small cell cancer of left lung: Code(s): C34.92 - Malignant neoplasm of unspecified part of left bronchus or lung Category: Surgical (3) COPD (chronic obstructive pulmonary disease): Comment: Code(s): J44.9 - Chronic obstructive pulmonary disease, unspecified Category: Medical (4) Hemoptysis: Comment: Now resolved, due to the endobronchial disease Code(s): R04.2 - Hemoptysis Category: Medical Plan My recommendation is for the patient to proceed with anesthesia and surgery for his [id number] lung cancer of the left lower lobe. The patient does have some increased perioperative risk which include; atelectasis, hypoxia, pneumonia. At this point the patient is medically optimized may is able to proceed with surgery. The cancer is localized primarily at the superior segment of the LLL thank you. The endobronchial component is concerning for recurrent bleeds. At this point with a reassuring PET scan demonstrating no significant FDG activity of the mediastinum with the hilum having a resection of this lung mass would be with curative intent. The patient will tolerate a left lower lobe lobectomy completely based on his PFTs. continue Advair FREDREIC as needed F/U with Dr Wolfe Coding Level of Care Code Tele New Pt Level 4 (63814) Diagnoses Pre-op chest exam Z01.811 Non-small cell cancer of left lung C34.92 COPD (chronic obstructive pulmonary disease) J44.9 Hemoptysis R04.2 Time Spent (min) 16
== END 2023-11-05 09:50 | disposition home or self-care (01) ==
LOC: HO.HPS 09:04
PROVIDERS: PCP Nurse Practitioner Family; Visit Provider Hospitalist
DX: C34.92 Malignant neoplasm of unspecified part of left bronchus or lung (principal); J44.9 Chronic obstructive pulmonary disease, unspecified; R04.2 Hemoptysis; Z01.811 Encounter for preprocedural respiratory examination
CPT/HCPCS: 99442

== ENCOUNTER → 2023-11-05 09:04 | Outpatient (BNVA) | payer MEDICARE, SELFPAY | PROVIDERS: PCP Nurse Practitioner Family; Visit Provider Hospitalist ==

== ENCOUNTER 2023-11-12 13:01 | Outpatient (AMB) | payer MEDICARE, SELFPAY ==
--- NOTE | 2023-11-12 13:31 | MHC.OFFVIS ---
Intake Visit Reasons: Prostate biopsy results/ [facility] inj Intake Note: Patient is present for Biopsy Results and Inject Allergies Penicillins Allergy (Intermediate, Verified 11/05/23 09:05) Vomiting Bees Allergy (Unknown, Uncoded 11/05/23 09:05) anaphylaxis Medication List - Last Reconciled 11/12/23 by Jm Carver MD albuterol sulfate 90 mcg/actuation (ProAir HFA) 2 puffs inhalation Q8H PRN 30 days bicalutamide 50 mg PO DAILY 30 days doxycycline monohydrate 100 mg PO DAILY dutasteride 0.5 mg PO DAILY 30 days fluticasone propion-salmeterol 115-21 mcg/actuation (Advair HFA) 2 puffs inhalation BID 30 days oxycodone 5 mg PO Q8H PRN tramadol 50 mg PO Q8H PRN HPI Comments Details: Gary is a 68-year-old male. He is a patient of Dr. Quinn. He is seen for the following urologic conditions. - metastatic prostate cancer Completing evaluation for left lobe lung mass [facility] given today Discussion starting abiraterone with prednisone Will be reassessed for docetaxel following removal of lung mass Having marked discomfort bony was sleeping Will increase dose of oxycodone Prostate cancer, high-grade, high-volume disease. Metastatic to bone at diagnosis. 11/09 Biopsy PSA 85 Histologic type: Adenocarcinoma, acinar type Dewar score: 9 (5+4) (left base lateral, left mid lateral, left apex lateral,left apex medial, right mid medial, right apex medial) 9 (4+5) (left base medial, left mid medial, right base lateral, right base medial, right mid lateral, right apex lateral) % of pattern 4: 48 % % of pattern 5: 52 % Grade group: 5 Tumor quantitation: Number cores positive: 13 Total number of cores: 13 % of tissue involved: 75 % Periprostatic fat inv.: Present Seminal vesicle inv.: Not identified Perineural inv.: Present Lymphovascular invasion: Present Bone, left posterior iliac spine/left pelvic, core biopsy: Metastatic adenocarcinoma, consistent with prostatic origin PET-CT - 5 cm left lower lobe mass, extensive metastatic disease Elevated PSA PSA 12/03 1.4, 10/09 74 PFSH Medical History (Updated 11/05/23 @ 09:26 by Brady Paula MD) Hemoptysis Carcinoma, lung Personal history of nicotine dependence Asthma with chronic obstructive pulmonary disease (COPD) COPD (chronic obstructive pulmonary disease) Obesity (BMI 30.0-34.9) History of COVID-19 Left hip prosthetic joint infection Opioid dependence Shoulder pain Osteoarthritis Right leg swelling Arthritis, hip Surgical History (Updated 10/22/23 @ 16:46 by Jamey Millan MD) Non-small cell cancer of left lung History of bronchoscopy History of total right hip replacement History of total left hip replacement History of lumbar surgery Family History Father Colon cancer Mother Cancer Social History (Updated 10/22/23 @ 14:53 by Amanda Berman) Household Members: Family Household Members Other:: , lives with and 10 yo daughter Housing: House Alcohol intake: never Patient Tobacco Use Status: Former Tobacco user Cigarette Packs Per Day: 1 Years Smoked: onset 16yo, 1ppd x 40yrs, 40pyh e-Cigarette/Vaping Use: Never Used Second Hand Smoke Exposure: No service: No Current 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 Cognitive needs: No Hearing needs: No Vision needs: No Review of Systems Const Denies chills and Denies fever(s) Card Reports no additional complaints and Denies syncope Resp Denies cough GI Denies abdominal pain and Denies heartburn Reports as per HPI and Denies change in libido Neuro Denies syncope Psych Denies change in libido Endo Denies change in libido Physical Exam Const General: cooperative, healthy appearing, comfortable and no acute distress Orientation/consciousness: patient oriented x3 HEENT Face and sinus: Yes normal facial exam Mouth: moist mucous membranes Neck Neck: Yes normal visual inspection, Yes full ROM and Yes trachea midline Chest Chest palpation & inspection: normal inspection of the chest Resp Effort & Inspection: normal respiratory effort, able to speak in complete sentences and no respiratory distress GI Inspection: Yes normal to inspection Back/Spine/Pelvis Cervical Spine: normal cervical lordosis Thoracic/Lumbar Spine: thoracic and lumbar spine normal to inspection Skin General skin exam: no rashes or lesions noted Neuro General: patient oriented x3, gait normal, tone normal and moves all extremities Extrem General: Yes normal to inspection and Yes capillary refill normal Office Meds Eligard (6 month) 45 mg (6 month) subcutaneous syringe Performing Provider: Jm Carver MD Performing Location: [facility] Administered by: Fracisco Garvin LPN on 11/12/23 14:02 Dose Route Admin Location Dispensed Lot Number Expiration Date [facility] Supervisor [employer] 45 mg subcut left arm 45 mg [id number] 08/16/24 [id number] Social Project. Assessment & Plan Assessment & Plan (1) Prostate cancer metastatic to bone: Code(s): C61 - Malignant neoplasm of prostate; C79.51 - Secondary malignant neoplasm of bone Category: Medical Plan Three-month follow-up labs Orders: Orders Prostate Specific Antigen 3 Months C61 - Malignant neoplasm of prostate, C79.51 - Secondary malignant neoplasm of bone Testosterone, Total 3 Months C61 - Malignant neoplasm of prostate, C79.51 - Secondary malignant neoplasm of bone AMB Leuprolide Injection - Practice Supplied Today C61 - Malignant neoplasm of prostate, C79.51 - Secondary malignant neoplasm of bone, 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 5 mg PO Q8H PRN 60 tabs 0RF Breakthrough Pain, Moderate C61 - Malignant neoplasm of prostate, C79.51 - Secondary malignant neoplasm of bone To oxycodone Partial Fill upon patient request. 15 mg PO Q8H PRN 60 tabs 0RF Breakthrough Pain, Moderate C61 - Malignant neoplasm of prostate, C79.51 - Secondary malignant neoplasm of bone Discontinued dutasteride Discontinued Reason: Patient Completed Course 0.5 mg PO DAILY 30 days 30 caps 0RF N13.8 - Other obstructive and reflux uropathy, N40.1 - Benign prostatic hyperplasia with lower urinary tract symptoms, R97.20 - Elevated prostate specific antigen [PSA] bicalutamide Discontinued Reason: Patient Completed Course 50 mg PO DAILY 30 days 30 tabs 0RF C61 - Malignant neoplasm of prostate, R97.20 - Elevated prostate specific antigen [PSA] Patient Instructions: Imaging studies, laboratory and physical exam results were discussed and reviewed in detail. No major barriers to patient understanding were identified. An opportunity to ask questions regarding the treatment plan was provided. All questions were answered. The patient expressed understanding and agreement with the above treatment plan. The patient is aware they should contact our office by phone for worsening of their current condition or the appearance of new urologic symptoms. Compliance is encouraged with any medications and followup testing that is ordered. It is a privilege to participate in the urologic care of your patient. If you have any questions or concerns regarding treatment for the above conditions, or other urologic issues, please do not hesitate to contact me. The office telephone contact is [phone]. This note is constructed using voice recognition software. While every effort has been made to ensure accuracy city manager errors may have been included. Yours sincerely, Dr Jm Carver MD, [facility] - Urology Providers of Expert, Compassionate Care for the Genitourinary System Coding Level of Care Code Est Pt Level 4 (92582) Diagnoses Prostate cancer metastatic to bone C61; C79.51
== END 2023-11-12 14:04 | disposition home or self-care (01) ==
PROVIDERS: PCP Nurse Practitioner Family; Visit Provider Urology
DX: C61 Malignant neoplasm of prostate (principal); C79.51 Secondary malignant neoplasm of bone; C79.82 Secondary malignant neoplasm of genital organs
CPT/HCPCS: 99214

== ENCOUNTER → 2023-11-12 13:01 | Outpatient (BNVA) | payer MEDICARE, SELFPAY | PROVIDERS: PCP Nurse Practitioner Family; Visit Provider Urology | DX: C61 Malignant neoplasm of prostate (principal); C79.51 Secondary malignant neoplasm of bone; R97.21 Rising PSA following treatment for malignant neoplasm of prostate; N40.1 Benign prostatic hyperplasia with lower urinary tract symptoms; N13.8 Other obstructive and reflux uropathy; Z71.2 Person consulting for explanation of examination or test findings | CPT/HCPCS: 96402; 99212; J9217 ==

== ENCOUNTER → 2023-12-01 14:23 | Outpatient (BNV) | payer MEDICARE, SELFPAY | PROVIDERS: Admitting Provider Surgery; PCP Nurse Practitioner Family; Visit Provider Internal Medicine | DX: R00.0 Tachycardia, unspecified (principal) | CPT/HCPCS: 93010 ==

== ENCOUNTER 2023-12-03 16:01 | Outpatient (AMB) | payer MEDICARE, SELFPAY ==
[2023-12-03 16:03] VITALS: BP 142/70; PULSE 82; O2SAT 97; BMI 31.0
--- NOTE | 2023-12-03 16:03 | MHC.PC.OV ---
Vital Signs 12/03/23 16:03 Height 5 ft 11 in Weight 222 lb BMI 31.0 BP 142/70 H Blood Pressure Location Rt brachial Position Sitting Pulse 82 Pulse Source Pulse Oximeter Pulse Oximetry (%) 97 Oxygen Delivery Method Room Air Intake Visit Reasons: surgery 12/09 - call to remind pt Intake Note: pt is here for VATS possible open left lower lobectomy pre-op....EKG done yesterday ( [facility]) Allergies Penicillins Allergy (Intermediate, Verified 12/03/23 17:18) Vomiting Bees Allergy (Unknown, Uncoded 12/03/23 17:18) anaphylaxis Medication List - Last Reconciled 12/03/23 by AUGUST Concepcion-JANNY abiraterone 1,000 mg (4 x 250 mg) PO DAILY 30 days albuterol sulfate 90 mcg/actuation (ProAir HFA) 2 puffs inhalation Q8H PRN 30 days cephalexin 500 mg PO DAILY esomeprazole magnesium (Nexium 24HR) 20 mg PO DAILY PRN oxycodone 5 mg PO Q8H PRN Tobacco use date assessed: 09/24/23 Fall risk assessment: No Falls in past year Last assessed Fall Risk: 12/03/23 Dental Screening Dental Screen Date: 09/24/23 HPI surgery 12/09 - call to remind pt HPI Details Pt is here for a pre-op evaluation. He is scheduled to undergo a VATS procedure with left lower lobectomy on 12/09. EKG and labs are already complete. Pt reports developing a cold last week, though think he is getting over it. Reports a slight cough, some mucous production, reports fever up to 100.9 (as he had in the office today). Plan is to keep in contact with him, will call him thursday with how the weekend went. Knows to go to seek medical care with any worsening symptoms. He is currently following up with urology (prostate ca with cortez), oncology, and thoracics. [facility] Medical History Back pain Constipation Vomiting GERD (gastroesophageal reflux disease) History of prostate cancer Hemoptysis Carcinoma, lung Personal history of nicotine dependence Asthma with chronic obstructive pulmonary disease (COPD) COPD (chronic obstructive pulmonary disease) Obesity (BMI 30.0-34.9) History of COVID-19 Left hip prosthetic joint infection Opioid dependence Shoulder pain Osteoarthritis Right leg swelling Arthritis, hip Surgical History Non-small cell cancer of left lung History of bronchoscopy History of total right hip replacement History of total left hip replacement History of lumbar surgery Family History Father Colon cancer Mother Cancer Social History Household Members: Family Household Members Other:: , lives with and 10 yo daughter Housing: House Are you a primary home care giver to a significant other at home: No Do you presently have visiting nurse or other home services: No Alcohol intake: never Patient Tobacco Use Status: Former Tobacco user Cigarette Packs Per Day: 1 Years Smoked: onset 16yo, 1ppd x 40yrs, 40pyh Packs Per Year: 0 e-Cigarette/Vaping Use: Never Used Second Hand Smoke Exposure: No service: No Current 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 1. Little interest or pleasure in doing things: not at all 2. Feeling down, depressed, or hopeless: several days 3. Trouble falling or staying asleep, or sleeping too much: several days 4. Feeling tired or having little energy: several days 5. Poor appetite or overeating: several days 6. Feeling bad about yourself - or that you are a failure or have let yourself or your family down: several days 7. Trouble concentrating on things, such as reading the newspaper or watching television: several days 8. Moving or speaking so slowly that other people could have noticed. Or the opposite - being so fidgety or restless that you have been moving around a lot more than usual: not at all 9. Thoughts that you would be better off or of hurting yourself in some way: not at all Total score: 6 Depression Screening Interpretation: Negative Depression Screening Done: Yes 59760 - PHQ-9 Billing: Yes Source: Developed by Drs. Jeffy George, Daysi Rai, Ronnie Seth and colleagues, with an educational dana from [employer]. Thrive Questionnaire Date Thrive assessed: 12/03/23 I am a: Patient What is your living situation today?: I have a steady place to live Within the past 12 months, did the food you bought not last and you didn't have the money to get more?: Never true Within the past 12 months, did you worry whether your food would run out before you got money to buy more?: Often true Do you have trouble paying for medicines?: No Do you have trouble getting transportation to medical appointments?: No Do you have trouble paying your heating and electricity bill?: No Do you have trouble taking care of your child, family member or friend?: No Do you have trouble with day-to-day activities such as bathing, preparing meals, shopping, managing finances, etc.?: No Are you currently unemployed and looking for a job?: No Are you interested in more education?: No Please select the resources that you would like help with: None Currently or been in a relationship where the following occur: No concerns reported THRIVE Score: 1 AUDIT C Alcohol Use Questionnaire (AUDIT-C) 1. How often do you have a drink containing alcohol?: Monthly or less 2. How many drinks containing alcohol do you have on a typical day when you are drinking?: 1 or 2 3. How often do you have six or more drinks on one occasion?: Never Total Score: 1 Score Reviewed/Action Taken: Yes NATALY-7 AMB Questionnaire NATALY-7 Date NATALY - 7 assessed: 12/03/23 Feeling nervous, anxious, or on edge: 1 = Several days Not being able to stop or control worryin = Several days Worrying too much about different things: 1 = Several days Trouble relaxin = Several days Being so restless that it is hard to sit still: 1 = Several days Becoming easily annoyed or irritable: 0 = Not at all Feeling afraid as if something awful might happen: 0 = Not at all Total NATALY-7 score (0-4 normal; 5-9 mild; 10-14 moderate; 15-21 severe): 5 Source: Developed by Daysi Wang.W. Fredi, Ronnie Seth and colleagues, with an educational dana from [employer]. NATALY-7 Assessment Billing NATALY-7 Assessment Tool: NATALY-7 Assessment 83069 Review of Systems Const Denies chills and Reports fever(s) (as in hpi) Eyes Denies blurry vision ENT Denies vertigo, Denies dizziness and Denies sore throat Card Denies chest pain at rest, Denies chest pain with activity, Reports diaphoresis (last night), Denies dyspnea and Denies dyspnea on exertion Resp Denies cough, Denies dyspnea, Denies dyspnea on exertion and Denies wheezing GI Denies abdominal pain, Denies melena, Denies hematochezia, Denies constipation, Denies diarrhea and Denies loose stools Denies hematuria Musc Denies numbness and Denies tingling Skin/Breast Denies lesions Neuro Denies vertigo, Denies dizziness, Denies numbness and Denies tingling Psych Denies anxiety, Denies depression, Denies homicidal ideation, Denies suicidal ideation and Denies other (substance abuse) Aller/Immun Denies wheezing Physical exam (Primary Care) Vital Signs: Last Vital Signs Pulse 82 12/03/23 16:03 BP 142/70 H 12/03/23 16:03 Pulse Ox 97 12/03/23 16:03 Oxygen Delivery Method Room Air 12/03/23 16:03 BMI result Body Mass Index 31.0 Tobacco/Smoking Status: Tobacco use Status Tobacco use date assessed 09/24/23 12/03/23 16:07 Patient Tobacco Use Status Former Tobacco user 12/03/23 16:07 e-Cigarette/Vaping Use Never Used 12/03/23 16:07 PHQ-9: PHQ-9 Score PHQ-9: Total score 6 12/03/23 16:22 Depression Screening Interpretation: Negative Thrive Assessment: Date of Thrive Assessment Date Thrive assessed 12/03/23 12/03/23 16:13 Currently or been in a relationship where the following occur: No concerns reported Const General: cooperative Nutritional Appearance: well nourished Orientation/consciousness: patient oriented x3 Neck Neck: Yes no lymphadenopathy Resp Effort & Inspection: normal respiratory effort Auscultation: clear to auscultation bilaterally (slightly dim bilat) Cardio Rate: regular rate Rhythm: regular rhythm Heart sounds: S1 normal heart sound present, S2 normal heart sound present and no murmurs Neuro General: patient oriented x3 Psych Appearance: grossly normal Mental Status: mental status grossly normal Speech and movement: Normal speech and movement present Affect: normal affect Attitude: cooperative Thought process: Normal thought process present Thought content: Normal thought content present Insight: Good insight present (Psych) Judgement: Good judgement present (Psych) Coding Level of Care Code Est Pt Prev Care >65y(40223) Diagnoses Pre-op evaluation Z01.818 Additional Codes NATALY-7 Assessment Billing - NATALY-7 Assessment Tool: NATALY-7 Assessment 32782 ([id number]) Assessment & Plan Assessment & Plan (1) Pre-op evaluation: Code(s): Z01.818 - Encounter for other preprocedural examination Category: Medical Plan: will speak with pt in 4 days, knows to seek emergency care with any worsening symptoms
== END 2023-12-03 16:55 | disposition home or self-care (01) ==
PROVIDERS: PCP Nurse Practitioner Family; Visit Provider Nurse Practitioner Family
DX: Z01.818 Encounter for other preprocedural examination (principal)

== ENCOUNTER → 2023-12-03 16:01 | Outpatient (BNVA) | payer MEDICARE, SELFPAY | PROVIDERS: PCP Nurse Practitioner Family; Visit Provider Nurse Practitioner Family | DX: Z01.818 Encounter for other preprocedural examination (principal) | CPT/HCPCS: 96127; 99212 ==

== ENCOUNTER 2023-12-09 12:57 | Outpatient (REF) | payer MEDICARE, SELFPAY ==
[2023-12-09 16:28] LABS: MANUAL DIFF FLAG NO
[2023-12-09 16:31] LABS: Basophils Absolute Auto 0.1 X10*3/uL (0.0-0.2); Basophils Percent Auto 0.5 % (0-2); Eosinophils Absolute Auto 0.1 X10*3/uL (0.0-0.4); Eosinophils Percent Auto 0.9 % (0-4); Hematocrit 29.4 % (42.0-52.0); Imm Gran Abs Auto 0.12 X10*3/uL (0.00-0.03); Imm Gran Pct Auto 0.8 % (0.0-0.4); Lymphocytes Absolute Auto 1.8 X10*3/uL (1.2-4.9); Lymphocytes Percent Auto 12.1 % (20-40); Mean Corpuscular HGB Conc 30.6 g/dl (31.0-36.0); Mean Corpuscular Hemoglobin 24.3 pg (27.0-33.0); Mean Corpuscular Volume 79.2 fL (80.0-98.0); Mean Platelet Volume 8.8 fL (9.4-12.4); Monocytes Percent Auto 6.3 % (2-11); Neutrophils Absolute Auto 11.9 x10*3/uL (2.0-8.3); Neutrophils Percent Auto 79.4 % (45-73); Platelet Count 594 X10*3/uL (160-400); Red Blood Count 3.71 X10*6/uL (4.60-5.80)
[2023-12-09 16:46] LABS: Alanine Aminotransferase 56 U/L (0-40); Albumin Level 3.2 g/dL (3.5-5.0); Alkaline Phosphatase 139 U/L (39-117); Anion Gap 13 (12-20); Aspartate Amino Transferase 72 U/L (5-37); Bilirubin Total 0.5 mg/dL (0.0-1.0); Blood Urea Nitrogen 13 mg/dL (9-16); Calcium 7.6 mg/dL (8.4-10.2); Carbon Dioxide 22 mmol/L (22-29); Chloride 103 mmol/L (96-108); Estimated Glomerular Filt Rate > 60; Glucose Random 152 mg/dL (60-115); Potassium 3.6 mmol/L (3.3-5.1); Sodium 134 mmol/L (135-145); Total Protein 7.4 g/dL (6.5-8.0)
== END 2023-12-09 12:58 | disposition home or self-care (01) ==
LOC: HO.HMGCX 12:57
PROVIDERS: PCP Nurse Practitioner Family; Visit Provider Nurse Practitioner Family
DX: Z01.818 Encounter for other preprocedural examination (principal)
CPT/HCPCS: 36415; 80053; 85025

== ENCOUNTER 2023-12-09 13:21 | Outpatient (REF) | payer MEDICARE, SELFPAY | END 2023-12-09 13:22 | disposition home or self-care (01) | LOC: HO.LAB 13:21 | PROVIDERS: Visit Provider Nurse Practitioner Family | DX: Z13.89 Encounter for screening for other disorder (principal) ==

== ENCOUNTER 2023-12-10 08:04 | Inpatient (IN) | payer MEDICARE, SELFPAY ==
--- NOTE | 2023-12-01 | ECG_ITS ---
Test Reason : PREOP Blood Pressure : / mmHG Vent. Rate : 104 BPM Atrial Rate : 104 BPM P-R Int : 138 ms QRS Dur : 084 ms QT Int : 330 ms P-R-T Axes : 075 060 073 degrees QTc Int : 433 ms Sinus tachycardia Otherwise normal ECG When compared with ECG of 03-NOV-2014 15:38, Vent. rate has increased BY 37 BPM Referred By: Monie Caldwell Electronically Signed By:ANUEL BOSE
[2023-12-01 13:47] VITALS: BP 149/67; PULSE 102; RESP 18; O2SAT 98; BMI 31.1
[2023-12-01 14:57] LABS: Hematocrit 32.4 % (42.0-52.0); Mean Corpuscular HGB Conc 30.9 g/dl (31.0-36.0); Mean Corpuscular Hemoglobin 24.6 pg (27.0-33.0); Mean Corpuscular Volume 79.8 fL (80.0-98.0); Mean Platelet Volume 8.4 fL (9.4-12.4); Platelet Count 478 X10*3/uL (160-400); Red Blood Count 4.06 X10*6/uL (4.60-5.80); Red Cell Distribution Width 17.7 % (11.0-16.0); White Blood Count 13.3 X10*3/uL (4.8-10.8)
[2023-12-01 15:48] LABS: Anion Gap 14 (12-20); Blood Urea Nitrogen 14 mg/dL (9-16); Calcium 8.2 mg/dL (8.4-10.2); Carbon Dioxide 23 mmol/L (22-29); Chloride 107 mmol/L (96-108); Creatinine Clr Calc Pharmacy 86.7; Estimated Glomerular Filt Rate > 60; Glucose Random 97 mg/dL (60-115); Potassium 4.2 mmol/L (3.3-5.1); Sodium 140 mmol/L (135-145)
--- NOTE | 2023-12-09 08:02 | MHC.SHP ---
Documented by User: Christiano Hayes MD 12/09/23 08:02 Pre-Procedural Eval Section A - 24 Hr Update-Section A only Date of Service: 12/10/23 The patient is an INPATIENT: Yes Changes since office visit: No Cold of Flu in the past 2 weeks, No New Medical Problems, No Changes in Medication and No Patient answered all questions Section B - Complete if H&P > 30 days Chief Complaint: Malignant neoplasm of unspecified part of left bro Allergies: Allergies Allergy/AdvReac Type Severity Reaction Status Date / Time Penicillins Allergy Intermediate Vomiting Verified 12/03/23 17:18 Bees Allergy Unknown anaphylaxis Uncoded 12/03/23 17:18 Review of Systems Sugical H&P ROS: Negative: Constitution, Cardiovascular, Respiratory, Neurological, Psychiatric, Hem-Onc, Allergic/Immunologic, Gastrointestinal, Genitourinary, Musculoskeletal, Integumentary, Endocrine and Eyes/Ears/Nose/Throat Exam Surgical H&P Exam: Normal: HEENT, Normal: Heart, Normal: Lungs, Normal: Extremities, Normal: Abdomen, Normal: Skin and Normal: Neurological Plan I have reviewed the history and physical and performed a pertinent physical examination on my patient. No changes have occurred unless specified. Time Spent With Patient Time: Total time managing care of this patient today ____ minutes. Documented by User: Monie Caldwell NP 12/09/23 12:32 Pre-Procedural Eval Section A - 24 Hr Update-Section A only Date of Service: 12/09/23 Section B - Complete if H&P > 30 days Chief Complaint: Malignant neoplasm of unspecified part of left bro
[2023-12-10] VITALS (15 sets, daily range): BP systolic 105–129; BP diastolic 54–68; PULSE 75–86; RESP 14–20; TEMP 36.1–36.9; O2SAT 95–100; BMI 30.3
--- NOTE | ~2023-12-10 | XR_ITS ---
EXAMINATION: XR CHEST CLINICAL INFORMATION: Status post left lower lobectomy COMPARISON: Chest x-ray December 11, 2023 TECHNIQUE: Frontal view of the chest was obtained. FINDINGS: Stable cardiac silhouette. The lungs are adequately aerated. Similar elevation of the left hemidiaphragm. Surgical drain projects over the left lung base. Mild patchy opacities of the left lung base are unchanged and most suggestive of atelectasis. Subcutaneous emphysema again noted along the lateral left chest wall. Unchanged prominent opacity abutting the right lateral chest wall. No gross pneumothorax. XR/XR chest 1V IMPRESSION: 1. Stable postoperative changes of the left lung. No gross pneumothorax. 2. Unchanged prominent opacity abutting the right lateral chest wall. Electronically signed by: Yovani Xiong MD 12/12/2023 08:34 AM EDT
--- NOTE | ~2023-12-10 | XR_ITS ---
EXAMINATION: XR CHEST CLINICAL INFORMATION: Left lower lobectomy. COMPARISON: CTA chest 10/16/2023. Chest radiograph 09/04/2023. TECHNIQUE: Frontal view of the chest was obtained. FINDINGS: Left-sided chest tube overlies the left hilum. Small left-sided pleural effusion. No pneumothorax. Asymmetric hazy appearance of the left lung with more focal airspace opacities in the left lower lung field. New masslike abnormality in the lateral right lower lung field in association with a pathologic fracture of the right posterior lateral eighth rib. Subcutaneous emphysema in the left neck and left chest wall. XR/XR chest 1V IMPRESSION: 1. New masslike abnormality in the lateral right lower lung field in association with a pathologic fracture of the right posterior lateral eighth rib concerning for malignancy. Recommend further characterization with a CT of the chest with intravenous contrast. 2. Asymmetric haziness of the left lung with more focal airspace opacities in the left lower lung field that could represent postoperative underdistention with atelectasis. 3. Small left pleural effusion. 4. No significant pneumothorax. Electronically signed by: Nancy Metzger MD 12/10/2023 03:59 PM EDT
--- NOTE | ~2023-12-10 | XR_ITS ---
EXAMINATION: XR CHEST CLINICAL INFORMATION: Postop COMPARISON: Chest radiograph 12/12/23 CT angiogram chest 10/16/23 TECHNIQUE: Frontal view of the chest was obtained. FINDINGS: A chest tube is again seen at the left lung base. Patchy densities are again seen at the left lung base and unchanged. Opacity at the right lung base abutting the lateral chest wall is unchanged. Subcutaneous emphysema along the left lateral chest wall is again noted. Degenerative changes seen in both shoulders. Rib fractures are better demonstrated on prior CT scans. XR/XR chest 1V IMPRESSION: No significant interval change when compared to the prior study. Left-sided chest tube remains in place with no pneumothorax. Electronically signed by: Yg Koenig MD 12/15/2023 01:00 PM EDT
--- NOTE | ~2023-12-10 | XR_ITS ---
EXAMINATION: XR CHEST CLINICAL INFORMATION: Status post left lower lobectomy COMPARISON: December 10, 2023 TECHNIQUE: Frontal view of the chest was obtained. FINDINGS: There is no interval change since previous study in right lower lobe opacity silhouetting the chest wall. Left lung is of low volume due to partial lobectomy and there are postsurgical changes seen with soft tissue emphysema on the left. XR/XR chest 1V IMPRESSION: No interval change. Left lung postsurgical changes and right lower lobe opacity Electronically signed by: Jorge Kaufman MD 12/11/2023 04:04 PM EDT
[2023-12-10 07:36] LABS: Influenza A PCR NEGATIVE (Negative); Influenza B PCR NEGATIVE (Negative); Resp Syncy Virus RNA Qual PCR NEGATIVE (Negative); SARS COV2 PCR INHOUSE NEGATIVE (Negative)
[2023-12-10] MEDS: Lactated Ringers 1,000 ML 100 ML IVCONT (07:51)
--- NOTE | 2023-12-10 07:58 | MHC.SHP ---
Pre-Procedural Eval Section A - 24 Hr Update-Section A only Date of Service: 12/10/23 The patient is an INPATIENT: Yes Changes since office visit: No Cold of Flu in the past 2 weeks, No New Medical Problems, No Changes in Medication and No Patient answered all questions Section B - Complete if H&P > 30 days Chief Complaint: Malignant neoplasm of unspecified part of left bro Allergies: Allergies Allergy/AdvReac Type Severity Reaction Status Date / Time Penicillins Allergy Intermediate Vomiting Verified 12/10/23 06:43 Bees Allergy Severe anaphylaxis Uncoded 12/10/23 06:43 Plan I have reviewed the history and physical and performed a pertinent physical examination on my patient. No changes have occurred unless specified. Time Spent With Patient Time: Total time managing care of this patient today ____ minutes.
--- NOTE | 2023-12-10 07:58 | PC.NURSE ---
Dr. Hayes at bedside. Made aware of lab results from 12/08. Okay to proceed at this time. Dr. Wilson also at bedside and made aware. Okay to proceed.
--- OUTSIDE RECORDS SUMMARY | 2023-12-10 08:07 | XMS_ITS | Continuity of Care Document ---
Author Organization [facility] Address [address] [place] [address]- Care Team Providers Care Finance Mgr Name Role Phone Juan ESPINO, Nikita Abdullahi Primary Care Physician [phone] [place] [facility] [place](s): 01/06/23 - 02/05/23 [facility] [address] [place] [id number] Attending Physician: Armando Velasco Admitting Physician: AdmtrArmando Referring Physician: AdmtrArmando Allergies, Adverse Reactions, Alerts Substance Reaction Severity Status Bee Stings resp distress respiratory distress Active Medications acetaminophen 325 mg oral tablet 650 mg, By Mouth, Every 6 hours, Refills 0, Maintenance, 10/20/19 8:46:00 EDT Start Date: 10/20/19 Status: Ordered aspirin 325 mg oral delayed release tablet 325 mg, 1, tablet, By Mouth, 2 times a day, # 60 tablet, Refills 0, Tot. Refills 0, Maintenance, 10/20/19 8:42:00 EDT, Route to Pharmacy Electronically, [facility], 180, cm, 10/20/19 6:43:00 EDT, Height, 130, kg, 10/15/19 3:54:00 EDT, . Start Date: 10/20/19 Stop Date: 11/19/19 Status: Ordered CeleBREX 200 mg oral capsule 1 capsule = 200 mg, By Mouth, Daily, # 30 capsule, 0 Refills, Maintenance, 10/15/19 3:31:00 EDT, Capsule Start Date: 10/15/19 Status: Ordered celecoxib 200 mg oral capsule 1 capsule = 200 mg, By Mouth, Daily, # 30 capsule, 0 Refills, Maintenance, 10/20/19 8:43:00 EDT, Capsule, [facility], 180, cm, 10/20/19 6:43:00 EDT, Height, 130, kg, 10/15/19 3:54:00 EDT, Dry Weight Start Date: 10/20/19 Stop Date: 11/19/19 Status: Ordered doxycycline monohydrate 100 mg oral capsule See Instructions, TAKE 1 CAPSULE BY MOUTH TWICE DAILY, # 60 capsule, 2 Refills, [facility], 180, cm, 12/20/19 15:59:00 EST, Height, 130, kg, 10/15/19 3:54:00 EDT, Dry Weight Start Date: 02/07/21 Status: Ordered doxycycline monohydrate 100 mg oral capsule 1 capsule, By Mouth, 2 times a day, # 60 capsule, 2 Refills, [facility], 180, cm, 12/20/19 15:59:00 EST, Height, 130, kg, 10/15/19 3:54:00 EDT, Dry Weight Start Date: 05/06/21 Status: Ordered doxycycline monohydrate 100 mg oral capsule 1 capsule = 100 mg, By Mouth, Every 12 hours, # 60 capsule, 5 Refills, Maintenance, 08/27/22 11:00:00 EDT, Capsule, [facility], Partial fill upon patient request if the prescription is for a schedule II opioid drug., 180, cm, 06/24/22 10:43:00 ED... Start Date: 08/27/22 Stop Date: 02/23/23 Status: Ordered oxyCODONE 20 mg oral tablet 1 tablet = 20 mg, By Mouth, Every 4 hours, PRN Pain , Moderate, 0 Refills, Maintenance, 10/20/19 8:46:00 EDT, Tablet, Partial fill upon patient request Start Date: 10/20/19 Status: Ordered pantoprazole 40 mg oral delayed release tablet = 40 mg, By Mouth, Daily, # 30 capsule, 0 Refills, Maintenance, 10/20/19 8:43:00 EDT, [facility] Tablet, 180, cm, 10/20/19 6:43:00 EDT, Height, 130, kg, 10/15/19 3:54:00 EDT, Dry Weight Start Date: 10/20/19 Stop Date: 11/19/19 Status: Ordered zolpidem 10 mg oral tablet 1 tablet, By Mouth, Daily at bedtime, PRN Sleep, 0 Refills, Maintenance, Tablet Start Date: 10/23/09 Status: Ordered Problem List Condition Confirmation Course Effective Dates Status H ealth Status Informant BMI 30+ - obesity Confirmed Active Chronic low back pain Confirmed Active Drug interaction 1 Confirmed Active Gastro-esophageal reflux disease Confirmed Active Hip pain Confirmed Active Lumbar spinal fusion Confirmed 1977 Active Normocytic normochromic anemia Confirmed Active Not getting enough sleep Confirmed Active OA - Osteoarthritis of hip Confirmed Active Severe obesity (BMI 35.0-39.9) with comorbidity Confirmed Active Total hip replacement 2 Confirmed 08/01/09 Active Urinary hesitancy 3 Confirmed Active 1history of tramadol treatment; history of antidepressant and opioid co-treatment 2right; Dr. Hennessy at [facility] 3opioid associated Social History Social History Type Response Smoking Status 10 or more cigarette s (1/2 pack or more)/day in last 30 days entered on: 10/14/19 Sex Patient Care team information Care Team Personnel Name: Jennifer Boyd RN Position: [facility] RN Member Role: Primary Care Nurse Name: Nikita Martinez NP Position: Reference Physician Member Role: PCP Address: Address: [address] [place] [address] Name: Madiha Javier RN Position: S RN Member Role: Primary Care Nurse Name: Mell Pollard RN Position: S RN Member Role: Primary Care Nurse Care Team Related Persons Name: SONDRA FRYE Address: home [address] [place] [address] Name: SONDRA CAMACHO Address: home [address] [place] [address]
--- OUTSIDE RECORDS SUMMARY | 2023-12-10 08:07 | XMS_ITS | Continuity of Care Document ---
Author Organization [facility] Address [address] [place] [address]- Care Team Providers Care Wood Car Builder Name Role Phone Juan ESPINO, Nkiita Abdullahi Primary Care Physician [phone] [place] [facility] [place] 07/24/22 [facility] [address] [place] [id number] Attending Physician: Armando Velasco Admitting Physician: Armando Velasco Referring Physician: AdmtrArmando Allergies, Adverse Reactions, Alerts Substance Reaction Severity Status Bee Stings resp distress respiratory distress Active Immunizations Not Given Vaccine Date Status Refusal Reason pneumococcal 13-valent vaccine 10/16/19 Not Given Patient Refuses Medications acetaminophen 325 mg oral tablet 650 mg, By Mouth, Every 6 hours, Refills 0, Maintenance, 10/20/19 8:46:00 EDT Start Date: 10/20/19 Status: Ordered aspirin 325 mg oral delayed release tablet 325 mg, 1, tablet, By Mouth, 2 times a day, # 60 tablet, Refills 0, Tot. Refills 0, Maintenance, 10/20/19 8:42:00 EDT, Route to Pharmacy Electronically, [facility], 180, cm, 10/20/19 6:43:00 [...] 0 Refills, Maintenance, 10/20/19 8:43:00 EDT, Capsule, [facility], 180, cm, 10/20/19 6:43:00 EDT, Height, 130, kg, 10/15/19 3:54:00 EDT, Dry Weight Start Date: 10/20/19 Stop Date: 11/19/19 Status: Ordered doxycycline monohydrate 100 mg oral capsule See Instructions, TAKE 1 CAPSULE BY MOUTH TWICE DAILY, # 60 capsule, 2 Refills, [facility], 180, cm, 12/20/19 15:59:00 EST, Height, 130, kg, 10/15/19 3:54:00 EDT, Dry Weight Start Date: 02/07/21 Status: Ordered doxycycline monohydrate 100 mg oral capsule 1 capsule = 100 mg, By Mouth, Every 12 hours, # 60 capsule, 2 Refills, Maintenance, 05/23/22 12:43:00 EDT, Capsule, [facility], Partial fill upon patient request if the prescription is for a schedule II opioid drug. Start Date: 05/23/22 Stop Date: 08/21/22 Status: Ordered doxycycline monohydrate 100 mg oral capsule 1 capsule, By Mouth, 2 times a day, # 60 capsule, 2 Refills, [facility], 180, cm, 12/20/19 15:59:00 EST, Height, 130, kg, 10/15/19 3:54:00 EDT, Dry Weight Start Date: 05/06/21 Status: Ordered oxyCODONE 20 mg oral tablet [...] and opioid co-treatment 2right; Dr. Hennessy at [facility] 3opioid associated Social History Social History Type Response Smoking Status 10 or more cigarette s (1/2 pack or more)/day in last 30 days entered on: 10/14/19 Sex Patient Care team information Care Team Personnel Name: Jennifer Boyd RN Position: [facility] RN Member Role: Primary Care Nurse Name: Nikita Martinez NP Position: Reference Physician Member Role: PCP Address: Address: [address] [place] [address] Name: Madiha Javier RN Position: S RN Member Role: Primary Care Nurse Name: Mell Pollard RN Position: S RN Member Role: Primary Care Nurse Care Team Related Persons Name: SONDRA FRYE Address: home [address] [place] [address] Name: SONDRA CAMACHO Address: home [address] [place] [address]
--- OUTSIDE RECORDS SUMMARY | 2023-12-10 08:07 | XMS_ITS | Continuity of Care Document ---
Author Organization [facility] Address [address] [place] [address]- Care Team Providers Care Supervisor Steel Division Name Role Phone Juan ESPINO, Nikita Abdullahi Primary Care Physician Encounter [facility] [place] Date(s): 08/26/22 - 09/25/22 [facility] [address] [place] [id number] Allergies, Adverse Reactions, Alerts Substance Reaction Severity [...] 10/20/19 8:42:00 EDT, Route to Pharmacy Electronically, [facility], 180, cm, 10/20/19 6:43:00 [...] 0 Refills, Maintenance, 10/20/19 8:43:00 EDT, Capsule, [facility], 180, cm, 10/20/19 6:43:00 EDT, Height, 130, kg, 10/15/19 3:54:00 EDT, Dry Weight Start Date: 10/20/19 Stop Date: 11/19/19 Status: Ordered doxycycline monohydrate 100 mg oral capsule See Instructions, TAKE 1 CAPSULE BY MOUTH TWICE DAILY, # 60 capsule, 2 Refills, [facility], 180, cm, 12/20/19 15:59:00 EST, Height, 130, kg, 10/15/19 3:54:00 EDT, Dry Weight Start Date: 02/07/21 Status: Ordered doxycycline monohydrate 100 mg oral capsule 1 capsule, By Mouth, 2 times a day, # 60 capsule, 2 Refills, [facility], 180, cm, 12/20/19 15:59:00 EST, Height, 130, kg, 10/15/19 3:54:00 EDT, Dry Weight Start Date: 05/06/21 Status: Ordered doxycycline monohydrate 100 mg oral capsule 1 capsule = 100 mg, By Mouth, Every 12 hours, # 60 capsule, 5 Refills, Maintenance, 08/27/22 11:00:00 EDT, Capsule, [facility], Partial fill upon patient request if [...] and opioid co-treatment 2right; Dr. Hennessy at [facility] 3opioid associated Social History Social History Type Response Smoking Status 10 or more cigarette s (1/2 pack or more)/day in last 30 days entered on: 10/14/19 Sex Patient Care team information Care Team Personnel Name: Jennifer Boyd RN Position: [facility] RN Member Role: Primary Care Nurse Name: Nikita Martinez NP Position: Reference Physician Member Role: PCP Address: Address: [address] [place] [address] Name: Madiha Javier RN Position: S RN Member Role: Primary Care Nurse Name: Mell Pollard RN Position: S RN Member Role: Primary Care Nurse Care Team Related Persons Name: SONDRA FRYE Address: [address] [place] [address] Name: SONDRA CAMACHO Address: [address] [place] [address]
--- OUTSIDE RECORDS SUMMARY | 2023-12-10 08:07 | XMS_ITS | Continuity of Care Document ---
Author Organization [facility] Address [address] [place] [address]- Care Team Providers Care Machine Whitener Name Role Phone Juan ESPINO, Nikita Abdullahi Primary Care Physician Encounter [facility] [place] Date(s): 05/23/22 - 06/22/22 [facility] [address] [place] [id number] Allergies, Adverse Reactions, Alerts Substance Reaction Severity [...] 10/20/19 8:42:00 EDT, Route to Pharmacy Electronically, [facility], 180, cm, 10/20/19 6:43:00 [...] 0 Refills, Maintenance, 10/20/19 8:43:00 EDT, Capsule, [facility], 180, cm, 10/20/19 6:43:00 EDT, Height, 130, kg, 10/15/19 3:54:00 EDT, Dry Weight Start Date: 10/20/19 Stop Date: 11/19/19 Status: Ordered doxycycline monohydrate 100 mg oral capsule See Instructions, TAKE 1 CAPSULE BY MOUTH TWICE DAILY, # 60 capsule, 2 Refills, [facility], 180, cm, 12/20/19 15:59:00 EST, Height, 130, kg, 10/15/19 3:54:00 EDT, Dry Weight Start Date: 02/07/21 Status: Ordered doxycycline monohydrate 100 mg oral capsule 1 capsule = 100 mg, By Mouth, Every 12 hours, # 60 capsule, 2 Refills, Maintenance, 05/23/22 12:43:00 EDT, Capsule, [facility], Partial fill upon patient request if the prescription is for a schedule II opioid drug. Start Date: 05/23/22 Stop Date: 08/21/22 Status: Ordered doxycycline monohydrate 100 mg oral capsule 1 capsule, By Mouth, 2 times a day, # 60 capsule, 2 Refills, [facility], 180, cm, 12/20/19 15:59:00 EST, Height, [...] OA - Osteoarthritis of hip Confirmed Active Total hip replacement 2 Confirmed 08/01/09 Active Urinary hesitancy 3 Confirmed Active 1history of tramadol treatment; history of antidepressant and opioid co-treatment 2right; Dr. Hennessy at [facility] 3opioid associated Social History Social History Type Response Smoking Status 10 or more cigarette s (1/2 pack or more)/day in last 30 days entered on: 10/14/19 Sex Patient Care team information Care Team Personnel Name: Jennifer Boyd RN Position: [facility] RN Member Role: Primary Care Nurse Name: Nikita Martinez NP Position: Reference Physician Member Role: PCP Address: Address: [address] [place] [address] Name: Madiha Javier RN Position: S RN Member Role: Primary Care Nurse Name: Mell Pollard RN Position: S RN Member Role: Primary Care Nurse Care Team Related Persons Name: SONDRA FRYE Address: [address] [place] [address] Name: SONDRA CAMACHO Address: [address] [place] [address]
--- OUTSIDE RECORDS SUMMARY | 2023-12-10 08:07 | XMS_ITS | Continuity of Care Document ---
Author Organization [facility] Address [address] [place] [address]- Care Team Providers Care Salesperson Floor Coverings Name Role Phone Juan ESPINO, Nikita Abdullahi Primary Care Physician [place] [facility] [place] 08/31/23 - 09/30/23 [facility] [address] [place] [id number] Allergies, Adverse Reactions, Alerts Substance Reaction Severity Status Bee Stings resp distress respiratory distress Active Medications acetaminophen 325 mg oral tablet 650 mg, By Mouth, Every 6 hours, Refills 0, Maintenance, 10/20/19 8:46:00 EDT Start Date: 10/20/19 Status: Ordered doxycycline monohydrate 100 mg oral capsule 1 capsule = 100 mg, By Mouth, Every 12 hours, # 60 capsule, 11 Refills, Maintenance, 04/13/23 12:51:00 EST, Capsule, [facility], Partial fill upon patient request if the prescription is for a schedule II opioid drug., 180, cm, 06/24/22 10:43:00 E... Start Date: 04/13/23 Stop Date: 04/07/24 Status: Ordered zolpidem 10 mg oral tablet [...] pain Confirmed Active Lumbar spinal fusion Confirmed 1978 Active Normocytic normochromic anemia Confirmed Active Not getting enough sleep Confirmed Active OA - Osteoarthritis of hip Confirmed Active Obese class I Confirmed Active Total hip replacement 2 Confirmed 08/01/09 Active Urinary hesitancy 3 Confirmed Active 1history of tramadol treatment; history of antidepressant and opioid co-treatment 2right; Dr. Hennessy at [facility] 3opioid associated Social History Social History Type Response Smoking Status 10 or more cigarette s (1/2 pack or more)/day in last 30 days entered on: 10/14/19 Sex Patient Care team information Care Team Personnel Name: Jennifer Boyd RN Position: [facility] SN RN Member Role: Primary Care Nurse Name: Nikita Martinez NP Position: Reference Physician Member Role: PCP Address: Address: [address] [place] [address] Name: Mdaiha Javier RN Position: S RN Member Role: Primary Care Nurse Name: Mell Pollard RN Position: S RN Member Role: Primary Care Nurse Care Team Related Persons Name: SONDRA FRYE Address: [address] [place] [address] Name: SONDRA CAMACHO Address: [address] [place] [address]
--- OUTSIDE RECORDS SUMMARY | 2023-12-10 08:07 | XMS_ITS | Continuity of Care Document ---
Author Organization [facility] Address [address] [place] [address]- Care Team Providers Care Tube Test Technician Name Role Phone Juan ESPINO, Nikita Abdullahi Primary Care Physician Encounter [facility] [place] Date(s): 09/15/23 - 10/15/23 [facility] [address] [place] [id number] Attending Physician: Armando Velasco Admitting Physician: Armando [...] Confirmed Active Total hip replacement 2 Confirmed 6/16/10 Active Urinary hesitancy 3 Confirmed Active 1history of tramadol treatment; history of antidepressant and opioid co-treatment 2right; Dr. Hennessy at [facility] 3opioid associated Social History Social History Type Response Smoking Status 10 or more cigarette s (1/2 pack or more)/day in last 30 days entered on: 10/14/19 Sex Patient Care team information Care Team Personnel Name: Jennifer Boyd RN Position: [facility] SN RN Member Role: Primary Care Nurse Name: Nikita Martinez NP Position: Reference Physician Member Role: PCP Address: Address: [address] [place] [address] Name: Madiha Javier RN Position: S RN Member Role: Primary Care Nurse Name: Mell oPllard RN Position: S RN Member Role: Primary Care Nurse Care Team Related Persons Name: SONDRA FRYE Address: home [address] [place] [address] Name: SONDRA CAMACHO Address: [address] [place] [address]
--- OUTSIDE RECORDS SUMMARY | 2023-12-10 08:07 | XMS_ITS | Continuity of Care Document ---
Author Organization [facility] Address [address] [place] [address]- Care Team Providers Care Preflight Inspector Name Role Phone Juan ESPINO, Nikita Abdullahi Primary Care Physician Encounter 10/20/23 - 10/21/23 [facility] [address] [place] [id number] Attending Physician: Not on Staff, Attending MD Referring Physician: Not on Staff, Referring MD Allergies, Adverse Reactions, Alerts Substance Reaction Severity [...] and opioid co-treatment 2right; Dr. Hennessy at [facility] 3opioid associated Results Radiology Reports * Exam Date Time Procedure Performing Provider Status 10/20/23 12:[address] PET AI Skull Base to Mid Thigh Auth (Verified) Notes: (CT PET AI Skull Base to Mid Thigh) Reason For Exam: Initial Staging ~ C34.92 - Malignant Neoplasm Of Unspecified Part Of Left Bronchus Or Lung;Initial Staging ~ C34.92 - Malignant Neoplasm Of Unspecified Part Of Left Bronchus Or Lung RESULT: CT PET AI Skull Base to Mid Thigh [facility] PET/CT Imaging VISIT NUMBER :[id number] Patient Name: Gary Camacho Date of : 1955 Date of Exam: 10-20-2023 Referring Physician: Christiano Hayes [address] [place] [address] - [address] Floor [place] [address] Exam: PT SUBTLE Skull Base to Mid Thigh CPT 69297 Room Description: [facility] Pt4 Positron emission tomography and CT dated October 20, 2023. No prior studies are available. HISTORY: Initial staging of small cell lung carcinoma. PET technique: Today's study was performed with the intravenous infusion of 13.7 mCi of F-[id number]. Imaging was performed 1 hour, 1 minutes, and 7 seconds following the infusion. Body mass was used to normalize the SUV. The blood glucose at the time of the injection was 122 mg/dL. Uptake in the liver has a peak SUV of 3.0 and uptake in the ascending aorta has a peak SUV of 2.8. Imaging was performed from the base of the brain to the mid thighs with axial, coronal, sagittal, and 3-D reconstruction performed on an independent workstation. FINDINGS: Today's examination is markedly abnormal. There is a 5.1 cm medial basal left lower lobe mass with increased metabolic activity and a peak SUV of 14.2. This is associated with a larger area of airspace disease consistent with postobstructive atelectasis or pneumonia. No hilar or mediastinal mass or adenopathy is appreciated. There are small bilateral pleural effusions right greater than left. There are several foci of increased metabolic activity noted in the patient's prostate gland. The peak SUV is up to 8.1 on image #158. There is a 1.5 cm left internal iliac lymph node with a peak SUV of 9.2 on image #149. There is a 3.9 cm right common iliac lymph node with a peak SUV of 13.1 on image #132. There are multiple bony metastasis is demonstrated throughout most of the visualized skeleton. This includes the skull base, all of the cervical, thoracic, and lumbar vertebral bodies. All of the ribs, both scapula, the manubrium and body of the sternum, eugenia, ischium, and pubis bilaterally. Increased metabolic activity is present in the proximal aspects of both femurs. IMPRESSION: Large left lower lobe mass consistent with a primary non-small cell lung tumor. In addition, there are several foci of increased metabolic activity in the prostate gland consistent with neoplasm. This would be a very unusual site for metastatic disease and most likely represents a second primary. This is associated with left internal iliac and right common iliac lymphadenopathy. 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 The differential diagnosis could include metastatic disease from either a primary lung tumor or primary prostate tumor. Examination [id number]. Thank you for allowing me to participate in the care of your patient. Electronically Signed By: Yg Veloz MD Dictated By: Not on Staff KYLE MD Dictated Date/Time: 10/21/23 1:59 pm Reviewed By: Not on Staff , KYLE PICKARD Signed By: Not on Staff , KYLE PICKARD Signed Date/Time: 10/21/23 1:59 pm Transcribed By: BEHZAD Transcribed Date/Time: 10/21/23 1:59 pm Social History Social History Type Response Smoking Status 10 or more cigarette s (1/2 pack or more)/day in last 30 days entered on: 10/14/19 Sex Patient Care team information Care Team Personnel Name: Jennifer Boyd RN Position: [facility] RN Member Role: Primary Care Nurse Name: Nikita Martinez NP Position: Reference Physician Member Role: PCP Address: Address: [address] [place] [address] Name: Madiha Javier RN Position: S RN Member Role: Primary Care Nurse Name: Mell Pollard RN Position: S RN Member Role: Primary Care Nurse Care Team Related Persons Name: UDAY SONDRA Address: home [address] [place] [address] Name: SONDRA CAMACHO Address: home [address] [place] [address]
--- OUTSIDE RECORDS SUMMARY | 2023-12-10 08:07 | XMS_ITS | Continuity of Care Document ---
Author Organization [facility] Infect[facility] Disease Address [address] [place] [address]- Care Team Providers Care Product Development Engineer Name Role Phone Juan ESPINO, Nikita Abdullahi Primary Care Physician [phone] Encounter [facility] Date(s): 02/12/23 - 03/14/23 [facility] [address] [place] [id number] Allergies, Adverse Reactions, Alerts Substance [...] 10/20/19 8:42:00 EDT, Route to Pharmacy Electronically, [facility], 180, cm, 10/20/19 6:43:00 EDT, Height, 130, kg, 10/15/19 3:54:00 EDT, Start Date: 10/20/19 Stop Date: 11/19/19 Status: Ordered CeleBREX 200 mg oral capsule 1 capsule = 200 mg, By Mouth, Daily, # 30 capsule, 0 Refills, Maintenance, 10/15/19 3:31:00 EDT, Capsule Start Date: 10/15/19 Status: Ordered celecoxib 200 mg oral capsule 1 capsule = 200 mg, By Mouth, Daily, # 30 capsule, 0 Refills, Maintenance, 10/20/19 8:43:00 EDT, Capsule, [facility], 180, cm, 10/20/19 6:43:00 EDT, Height, 130, kg, 10/15/19 3:54:00 EDT, Dry Weight Start Date: 10/20/19 Stop Date: 11/19/19 Status: Ordered doxycycline monohydrate 100 mg oral capsule See Instructions, TAKE 1 CAPSULE BY MOUTH TWICE DAILY, # 60 capsule, 2 Refills, [facility], 180, cm, 12/20/19 15:59:00 EST, Height, 130, kg, 10/15/19 3:54:00 EDT, Dry Weight Start Date: 02/07/21 Status: Ordered doxycycline monohydrate 100 mg oral capsule 1 capsule, By Mouth, 2 times a day, # 60 capsule, 2 Refills, [facility], 180, cm, 12/20/19 15:59:00 EST, Height, 130, kg, 10/15/19 3:54:00 EDT, Dry Weight Start Date: 05/06/21 Status: Ordered doxycycline monohydrate 100 mg oral capsule 1 capsule = 100 mg, By Mouth, Every 12 hours, # 60 capsule, 1 Refills, Maintenance, 02/12/23 12:51:00 EST, Capsule, [facility], Partial fill upon patient request if the prescription is for a schedule II opioid drug., 180, cm, 06/24/22 10:43:00 ED... Start Date: 02/12/23 Stop Date: 04/13/23 Status: Ordered oxyCODONE 20 mg oral tablet [...] and opioid co-treatment 2right; Dr. Hennessy at [facility] 3opioid associated Social History Social History Type Response Smoking Status 10 or more cigarette s (1/2 pack or more)/day in last 30 days entered on: 10/14/19 Sex Patient Care team information Care Team Personnel Name: Jennifer Boyd RN Position: [facility] RN Member Role: Primary Care Nurse Name: Nikita Martinez NP Position: Reference Physician Member Role: PCP Address: Address: [address] [place] [address] Name: Madiha Javier RN Position: S RN Member Role: Primary Care Nurse Name: Mell Pollard RN Position: S RN Member Role: Primary Care Nurse Care Team Related Persons Name: SONDRA FRYE Address: home [address] [place] [address] Name: SONDRA CAMACHO Address: home [address] [place] [address]
--- OUTSIDE RECORDS SUMMARY | 2023-12-10 08:07 | XMS_ITS | Continuity of Care Document ---
Author Organization [facility] Infect[facility] Address [address] [place] [id number]- Care Team Providers Care Vp Customer Development Name Role Phone Juan ESPINO, Nikita Abdullahi Primary Care Physician [place] [facility] [place](s): 03/17/23 - 04/16/23 [facility] [address] [place] [id number] Attending Physician: Armando Velasco Admitting Physician: Armando [...] and opioid co-treatment 2right; Dr. Hennessy at [facility] 3opioid associated Social History Social History Type Response Smoking Status 10 or more cigarette s (1/2 pack or more)/day in last 30 days entered on: 10/14/19 Sex Patient Care team information Care Team Personnel Name: Jennifer Boyd RN Position: [facility] SN RN Member Role: Primary Care Nurse Name: Nikita Martinez NP Position: Reference Physician Member Role: PCP Address: Address: [address] [place] [address] Name: Madiha Javier RN Position: S RN Member Role: Primary Care Nurse Name: Mell Pollard RN Position: S RN Member Role: Primary Care Nurse Care Team Related Persons Name: SONDRA FRYE Address: [address] [place] [address] Name: SONDRA CAMACHO Address: home [address] [place] [id number]
--- OUTSIDE RECORDS SUMMARY | 2023-12-10 08:07 | XMS_ITS | Continuity of Care Document ---
Author Organization [facility] Address [address] [place] [id number]- Care Team Providers Care Contact Center Analyst Name Role Phone Juan ESPINO, Nikita Abdullahi Primary Care Physician Encounter [facility] Date(s): 10/24/22 - 02/05/23 [facility] [address] [place] [id number] Attending Physician: Ignacio Masters MD Admitting Physician: Ignacio Masters MD Allergies, Adverse Reactions, Alerts Substance Reaction [...] 10/20/19 8:42:00 EDT, Route to Pharmacy Electronically, [facility], 180, cm, 10/20/19 6:43:00 [...] 0 Refills, Maintenance, 10/20/19 8:43:00 EDT, Capsule, [facility], 180, cm, 10/20/19 6:43:00 [...] a day, # 60 capsule, 2 Refills, [facility], 180, cm, 12/20/19 15:59:00 EST, Height, [...] and opioid co-treatment 2right; Dr. Hennessy at [facility] 3opioid associated Social History Social History Type Response Smoking Status 10 or more cigarette s (1/2 pack or more)/day in last 30 days entered on: 10/14/19 Sex Patient Care team information Care Team Personnel Name: Jennifer Boyd RN Position: [facility] SN RN Member Role: Primary Care Nurse Name: Nikita Martinez NP Position: Reference Physician Member Role: PCP Address: Address: [address] [place] [address] Name: Madiha Javier RN Position: S RN Member Role: Primary Care Nurse Name: Mell Pollard RN Position: S RN Member Role: Primary Care Nurse Care Team Related Persons Name: SONDRA FRYE Address: [address] [place] [address] Name: SONDRA CAMACHO Address: home [address] [place] [id number]
--- OUTSIDE RECORDS SUMMARY | 2023-12-10 08:07 | XMS_ITS | Continuity of Care Document ---
Author Organization [facility] Infectious Disease Address [address] [place] [address]- Care Team Providers Care Regulatory Affairs Portfolio Leader Name Role Phone Juan ESPINO, Nikita Abdullahi Primary Care Physician [phone] Encounter [facility] Date(s): 08/11/22 - 09/10/22 [facility] [address] [place] [id number] Allergies, Adverse Reactions, Alerts Substance Reaction [...] 10/20/19 8:42:00 EDT, Route to Pharmacy Electronically, [facility], 180, cm, 10/20/19 6:43:00 [...] 0 Refills, Maintenance, 10/20/19 8:43:00 EDT, Capsule, [facility], 180, cm, 10/20/19 6:43:00 [...] a day, # 60 capsule, 2 Refills, [facility], 180, cm, 12/20/19 15:59:00 EST, Height, [...] and opioid co-treatment 2right; Dr. Hennessy at [facility] 3opioid associated Social History Social History Type Response Smoking Status 10 or more cigarette s (1/2 pack or more)/day in last 30 days entered on: 10/14/19 Sex Patient Care team information Care Team Personnel Name: Jennifer Boyd RN Position: [facility] RN Member Role: Primary Care Nurse Name: Nikita Martinez NP Position: Reference Physician Member Role: PCP Address: Address: [address] [place] [address] Name: Madiha Javier RN Position: S RN Member Role: Primary Care Nurse Name: Mell Pollard RN Position: S RN Member Role: Primary Care Nurse Care Team Related Persons Name: SONDRA FRYE Address: [address] [place] [address] Name: SONDRA CAMACHO Address: [address] [place] [address]
--- NOTE | 2023-12-10 09:01 | HO.ANESPROP2 ---
Documented by User: Monie Caldwell NP 12/09/23 12:38 HPI - Anesthesia Eval Consult details Narrative: 68yo M for Thoracoscopy w/Video Assist,possible open lower Lobectomy, 12/10/23 Pending medical clearance. Pt presented with URI symptoms. PCP ordered viral swabs and labs. Pt did not complete. Needs preop per Dr Dotson. T/C to patient 12/09/23. Pt agreed to go for testing today. Medical clearance still pending. [place] [facility] [place] Recent URI, cough, fever 100.5. No CP. MONTEIRO at baseline Asthma/COPD: albuterol 1 x daily. Quit smoking ~ 4 years ago Hx Hemoptysis s/p EBUS/bx. Transfer to [place] [facility]. No further tx during hospital stay per pulmo note. No recurrence per pt. Prostate CA with bony mets Hx OUD: chronic oxy for back pain GERD: occasional. Is following up with PCP Prophylactic antibiotic for hip infection 5 years ago PMF Active Problems Active Problems: All Active Problems Pre-op chest exam (Acute) Prostate cancer metastatic to bone (Acute) Metastatic malignant neoplasm to prostate (Acute) Non-small cell carcinoma of lung (Acute) Scalp cyst (Acute) Elevated PSA (Acute) Folliculitis (Acute) Chronic lower back pain (Acute) DDD (degenerative disc disease), cervical (Acute) Cervical neck pain with evidence of disc disease (Acute) Screening for AAA (abdominal aortic aneurysm) (Acute) Shortness of breath (Acute) Nicotine dependence, cigarettes, uncomplicated (Acute) Dermatitis (Acute) Hemoptysis (Acute) Non-small cell cancer of left lung (Acute) Opioid dependence (Acute) COPD (chronic obstructive pulmonary disease) (Acute) Personal history of nicotine dependence (Acute) Obesity (BMI 30.0-34.9) (Acute) Right leg swelling (Acute) Arthritis, hip (Acute) Past Medical History Medical History Back pain Constipation Vomiting GERD (gastroesophageal reflux disease) History of prostate cancer Hemoptysis Carcinoma, lung Personal history of nicotine dependence Asthma with chronic obstructive pulmonary disease (COPD) COPD (chronic obstructive pulmonary disease) Obesity (BMI 30.0-34.9) History of COVID-19 Left hip prosthetic joint infection Opioid dependence Shoulder pain Osteoarthritis Right leg swelling Arthritis, hip Family History Family History Father Colon cancer Mother Cancer Family history of problems with anesthesia: No Surgical History Surgical History Non-small cell cancer of left lung History of bronchoscopy History of total right hip replacement History of total left hip replacement History of lumbar surgery History of Problems with Anesthesia: No Social History Social History Household Members: Family Household Members Other:: , lives with and 10 yo daughter Housing: House Are you a primary rn care transition to a significant other at home: No Do you presently have visiting nurse or other home services: No Alcohol intake: never Patient Tobacco Use Status: Former Tobacco user Cigarette Packs Per Day: 1 Years Smoked: onset 16yo, 1ppd x 40yrs, 40pyh e-Cigarette/Vaping Use: Never Used Second Hand Smoke Exposure: No Use of substances other than those prescribed or required for medical reasons: No Substance Use Frequency: Occasionally Have you been hit, kicked, punched, or otherwise hurt by someone within the past year? If so, by whom?: No Are you DNR?: No Advance Directives: No Advance Directives Information Provided: No Advance Directives on File: No Recently lost weight without trying: No How much weight loss: 34pounds or more Eating poorly because of decreased appetite: Yes Nutrition screen score: 5 Nutrition Risks: Anorexia Poor oral hygiene: Yes (missing teeth) service: No Current 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 Cognitive needs: No Hearing needs: No Vision needs: No Meds Allergies Allergy/AdvReac Type Severity Reaction Status Date / Time Penicillins Allergy Intermediate Vomiting Verified 12/10/23 06:43 Bees Allergy Severe anaphylaxis Uncoded 12/10/23 06:43 Home Medications ?Medication ?Instructions ?Recorded ?Confirmed ?Last Taken ?Type cephalexin 500 mg capsule 500 mg PO BID 12/01/23 12/10/23 Unknown History esomeprazole magnesium 20 mg 20 mg PO DAILY PRN Acid Reflux 12/01/23 12/10/23 12/07/23 History capsule,delayed release (Nexium 24HR) doxycycline monohydrate 100 mg 100 mg PO BID 12/10/23 12/10/23 12/09/23 History capsule Exam Height,Weight and Vital Signs: Height 5 ft 11 in Weight 101.151 kg Last Vital Signs Pulse 102 H 12/01/23 13:47 Resp 18 12/01/23 13:47 BP 149/67 H 12/01/23 13:47 Pulse Ox 98 12/01/23 13:47 O2 Del Method Room Air 12/01/23 13:47 Pertinent Lab Results Pertinent Lab Results: Lab Results 12/01/23 12/01/23 Range/Units 14:34 14:42 WBC 13.3 H (4.8-10.8) X10*3/uL RBC 4.06 L (4.60-5.80) X10*6/uL Hgb 10.0 L (14.0-18.0) g/dl Hct 32.4 L (42.0-52.0) % MCV 79.8 L (80.0-98.0) fL MCH 24.6 L (27.0-33.0) pg MCHC 30.9 L (31.0-36.0) g/dl RDW 17.7 H (11.0-16.0) % Plt Count 478 H (160-400) X10*3/uL MPV 8.4 L (9.4-12.4) fL Absolute Nucleated RBC 0.000 (0.0-0.012) X10*3/uL Nucleated RBC % (auto) 0.0 (0.0-0.2) /100WBC Sodium 140 (135-145) mmol/L Potassium 4.2 (3.3-5.1) mmol/L Chloride 107 (96-108) mmol/L Carbon Dioxide 23 (22-29) mmol/L Anion Gap 14 (12-20) BUN 14 (9-16) mg/dL Creatinine 0.96 (0.5-1.4) mg/dL Estim Creat Clear Calc 86.7 Estimated GFR > 60 Random Glucose 97 (60-115) mg/dL Calcium 8.2 L D (8.4-10.2) mg/dL Blood Type A Positive Antibody Screen NEGATIVE Narrative Narrative: EKG 11/2023 Vent. Rate : 104 BPM Atrial Rate : 104 BPM P-R Int : 138 ms QRS Dur : 084 ms QT Int : 330 ms P-R-T Axes : 075 060 073 degrees QTc Int : 433 ms Sinus tachycardia Otherwise normal ECG When compared with ECG of 03-NOV-2014 15:38, Vent. rate has increased BY 37 BPM Airway Mallampati Class: II TM Dist: >3cm Neck ROM: Full Loose/Missing/Broken Teeth: Yes (only 3 tooth stubs remain. Pt states not loose) Heart: RRR Lungs: Ronchi throughout Assessment and Plan Assessment Anesthesia Assessment: Anesthesia Plan Discussed and PAT Visit Final Anesthetic Review Family History of Problems with Anesthesia: No History of Problems with Anesthesia: No Documented by User: Clementina Wilson DO 12/10/23 09:01 HPI - Anesthesia Eval Consult details Narrative: 68yo M for Thoracoscopy w/Video Assist,possible open lower Lobectomy, 12/10/23 Patient recently had URI symptoms. PCP ordered viral swabs and labs. Pt did not complete. Viral panel is negative today. [place] [facility] [place]. No CP. MONTEIRO at baseline Asthma/COPD: albuterol 1 x daily. Quit smoking ~ 4 years ago Hx Hemoptysis s/p EBUS/bx. Transfer to tertiary [place] [facility]. No further tx during hospital stay per pulmo note. No recurrence per pt. Prostate CA with bony mets Hx OUD: chronic oxy for back pain GERD: occasional. Is following up with PCP Prophylactic antibiotic for hip infection 5 years ago [facility] Past Medical History Medical History Back pain Constipation Vomiting GERD (gastroesophageal reflux disease) History of prostate cancer Hemoptysis Carcinoma, lung Personal history of nicotine dependence Asthma with chronic obstructive pulmonary disease (COPD) COPD (chronic obstructive pulmonary disease) Obesity (BMI 30.0-34.9) History of COVID-19 Left hip prosthetic joint infection Opioid dependence Shoulder pain Osteoarthritis Right leg swelling Arthritis, hip Family History Family History Father Colon cancer Mother Cancer Family history of problems with anesthesia: No Surgical History Surgical History Non-small cell cancer of left lung History of bronchoscopy History of total right hip replacement History of total left hip replacement History of lumbar surgery History of Problems with Anesthesia: No Social History Social History Household Members: Family Household Members Other:: , lives with and 10 yo daughter Housing: House Are you a primary rn care transition to a significant other at home: No Do you presently have visiting nurse or other home services: No Alcohol intake: never Patient Tobacco Use Status: Former Tobacco user Cigarette Packs Per Day: 1 Years Smoked: onset 16yo, 1ppd x 40yrs, 40pyh e-Cigarette/Vaping Use: Never Used Second Hand Smoke Exposure: No Use of substances other than those prescribed or required for medical reasons: No Substance Use Frequency: Occasionally Have you been hit, kicked, punched, or otherwise hurt by someone within the past year? If so, by whom?: No Are you DNR?: No Advance Directives: No Advance Directives Information Provided: No Advance Directives on File: No Recently lost weight without trying: No How much weight loss: 34pounds or more Eating poorly because of decreased appetite: Yes Nutrition screen score: 5 Nutrition Risks: Anorexia Poor oral hygiene: Yes (missing teeth) service: No Current 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 Cognitive needs: No Hearing needs: No Vision needs: No Meds Allergies Allergy/AdvReac Type Severity Reaction Status Date / Time Penicillins Allergy Intermediate Vomiting Verified 12/10/23 06:43 Bees Allergy Severe anaphylaxis Uncoded 12/10/23 06:43 Home Medications ?Medication ?Instructions ?Recorded ?Confirmed ?Last Taken ?Type cephalexin 500 mg capsule 500 mg PO BID 12/01/23 12/10/23 Unknown History esomeprazole magnesium 20 mg 20 mg PO DAILY PRN Acid Reflux 12/01/23 12/10/23 12/07/23 History capsule,delayed release (Nexium 24HR) doxycycline monohydrate 100 mg 100 mg PO BID 12/10/23 12/10/23 12/09/23 History capsule Exam Exam Date and Time: 12/10/23 0752 Height,Weight and Vital Signs: Height 5 ft 11 in Weight 101.151 kg Last Vital Signs Pulse 102 H 12/01/23 13:47 Resp 18 12/01/23 13:47 BP 149/67 H 12/01/23 13:47 Pulse Ox 98 12/01/23 13:47 O2 Del Method Room Air 12/01/23 13:47 Height 5 ft 11 in Weight 98.611 kg Vital Signs Pulse Rate 102 H 12/01/23 13:47 Respiratory Rate 18 12/01/23 13:47 Blood Pressure 149/67 H 12/01/23 13:47 Pulse Oximetry 98 12/01/23 13:47 Oxygen Delivery Method Room Air 12/01/23 13:47 Temperature 98.4 F 12/10/23 06:45 Pulse Rate 80 12/10/23 06:45 Respiratory Rate 16 12/10/23 06:45 Blood Pressure 128/61 12/10/23 06:45 Pulse Oximetry 100 12/10/23 06:45 Oxygen Delivery Method Room Air 12/10/23 06:45 Airway Mallampati Class: II TM Dist: >3cm Neck ROM: Full Loose/Missing/Broken Teeth: Yes (only 3 tooth stubs remain. Pt states not loose) Heart: S1S2 Lungs: Diminished bilaterally Assessment and Plan Assessment Anesthesia Assessment: Anesthesia Plan Discussed and Chart Reviewed Final Anesthetic Review Family History of Problems with Anesthesia: No History of Problems with Anesthesia: No NPO: Yes ASA Class: III Final Preanesthetic Review: No Changes in Pt Med Stat, Meds/Allgs Chart Reviewed, Consent Obtained/Reviewed and Anes Risks/Benef Reviewed Patient Risk: Intermediate Procedure Risk: High Anesthetic Plan Anesthetic Plan: GA and Agree w/ Assess. and Plan Disposition: Standard PACU
--- NOTE | 2023-12-10 12:16 | P.OP_ITS ---
Operative Note Operative Note Date of Service: 12/10/23 Narrative: Preoperative diagnosis: [] Left lower lobe non-small cell lung cancer Postop diagnosis: [] The same Procedure [] vats converted to mini open left lower lobectomy, mediastinal lymph node sampling, pleural fluid drainage,pneumonolysis, intercostal nerve block Surgeon: [] Freddy Top Precipitator Operator Helper: [] Charleen Zapata Type of Anesthesia: [] Double-lumen general Indication for surgery: [] Bronchoscopy was used to assist anesthesia and placement of double-lumen tube. It is also used to outline the anatomy prior to and during stapling of bronchus. Bronchoscopy demonstrated a protuberant process pouting out of 1 of the basal segments of the left lower lobe. Intraoperative findings demonstrated a pleural effusion. Intraop Cytology was obtained and no malignant cells was demonstrated on cytologic evaluation i ntraoperatively. Patient had a large lower lobe centrally located mass/neoplasm. There was significant cicatrization, scarring, and desmoplastic reaction along the hilum. Adhesions of the lower lobe to the diaphragmatic and costal margins were encountered and were taken down using blunt and sharp dissection, and ligature device. Dissection along pulmonary ligament demonstrated the desmoplastic process, and with further dissection demonstrated that it encroached on the inferior left pulmonary vein, making dissection challenging and with inability to safely obtain tissue planes to encircled this vessel thorascopically, and conversion to open procedure was undertaken. Similar hilar scarring and desmoplastic reaction were encountered regarding the pulmonary arterial supply to the lower lobe. Mediastinal lymph node sampling including stations; 9, 10 L, 11 L, 6, and 7. Bronchial transection was performed with bronchoscopic guidance with the stapler placed as close to the division point of the upper and lower lobes without compromising the lumen of the upper lobe. Any further maneuvering of the stapler would have necessitated a pneumonectomy which, along with the patient's history of prostate cancer , was not performed because of concern that he would not be able to tolerate the procedure of this magnitude. Procedure; patient brought to the operating room, placed on operative table supine position, after an adequate level of double-lumen anesthesia was induced, the patient underwent bronchoscopy with findings noted above. Patient was then placed in the right lateral decubitus position. Left chest was prepped and draped in usual sterile fashion. Using anterior and posterior axillary line 6th intercostal space ports and a small axillary incision in the 4th interspace with wound protector placed, findings were as noted above. Initially pleural fluid was aspirated and sent to pathology which on their evaluation; no obvious malignant cells were demonstrated. It was then decided to proceed with the procedure. Hilum was approached where the intense cicatrization and scarring were identified. A significant lower lobe mass was encountered. The lower lobe also had adhesions to the diaphragmatic and costal surface which were taken down/pneomonolysis using blunt dissection, Bovie, and ligature device. On attempted dissection around the inferior left pulmonary vein, the marked desmoplastic reaction was encountered and concern for tumor invasion of the tissue planes, and the appropriate planes could not be developed safely. It was then decided to convert to an open procedure by removing laparoscopic instruments and ports and extending the Access incision to a mini thoracotomy incision. This carried down through skin, subcutaneous tissue, latissimus dorsi muscle using Bovie. Serratus anterior was preserved and retracted posteriorly. Intercostal space was extended using Bovie and packs and retractors placed to enhance exposure. Hilum was approached where marked cicatrization and scarring were dissected off the inferior pulmonary vein and this was encircled, and transected using endoscopic vascular stapler. Next the fissures were partially completed using PEG staplers. Hilum was again dissected, where the superior segmental artery to the left upper lobe was identified, encircled, tied with 2-0 silk ties proximally X2 and distally clipped and transected. Next the main pulmonary arterial supply to the basal segments was identified, necessitating very meticulous dissection again secondary to the marked desmoplastic reaction surrounding them. It was encircled, and transected using endo vascular stapler. As noted above, marked desmoplastic reaction of the hilum was quite profound. Fissures were completed using PEG staplers. Throughout dissection, several lymph node stations were sampled and sent to pathology for permanent specimen taken, along with those within the specimen. The left lower lobe bronchus was identified, skeletonized, put on significant traction to obtain length away from the left upper lobe bronchus and a heavy wire PEG stapler was placed flushed with the mainstem bronchus to obtain as much margin as possible without compromising the left upper lobe. Stapler was closed. Lung was inflated where the left upper lobe was not compromised. Stapler was then uneventfully fired. Specimen was transected and sent to pathology for evaluation. Chest cavity was filled with saline , with bronchial stump being pneumostatic and entire left upper lobe and lingula reinflated. Further mediastinal lymph node dissection was performed. Please refer above regarding the stations and findings. Chest cavity was again irrigated and secured hemostasis. Through the anterior working port, 24 Romansh straight chest tube was placed and secured the skin using 0 silk suture. Chest wound incision was closed using interrupted 1. Over and over Dexon sutures x4. The latissimus dorsi muscle was closed using running 1. Dexon suture. Running deep dermal 2-0 Vicryl suture followed by running subcuticular 4-0 Vicryl sutures were placed. Port sites were closed using deep followed by dermal interrupted 2-0 and 3-0 Vicryl sutures respectively. Intercostal nerve block using Exparel was performed at all incision sites. Chest tube was connected to Pleur-evac and lung re-expanded with no significant air leak demonstrated. Steri-Strips and sterile dressings were applied. Sponge, needle, and instrument counts reported correct. Patient tolerated the procedure well emerged from anesthesia stable condition. Postprocedure chest x- ray pending. EBL; see anesthesia note .
[2023-12-10] MEDS: HYDROmorphone HCl 0.5 MG/0.5 ML SYRINGE IVPUSH ×4 (12:35→20:56)
--- NOTE | 2023-12-10 14:01 | HO.PM.IMCN ---
History of Present Illness Data of Consult Service Date: 12/10/23 Primary Care Provider: Nikita Martinez, [facility] HPI Reason for consult: Medical management Patient is a 68-year-old male with a PMH significant for COPD, left hip prosthetic joint infection, non-small cell lung carcinoma, and prostate cancer w/likely mets to bone currently on hormone therapy who was admitted to the hospital under thoracic surgery services for left lower lobe lobectomy. POD0. Hospitalist consult for medical management. Patient seen and evaluated in his room where he is resting comfortably in bed. Not on supplemental O2. Pt complains of 9/10 left chest pain and chest tightness associated with deep breathing. Otherwise has not acute medical complaints. Denies shortness of breath or difficulty breathing. Patient actually reports breathing is ?much better? than prior to surgery. Denies chest pain/pressure, palpitations. No fever, chills, nausea, vomiting, abdominal pain. Review of Systems Review of Systems: Yes all other systems are reviewed and are negative [facility] Medical History Back pain Constipation Vomiting GERD (gastroesophageal reflux disease) History of prostate cancer Hemoptysis Carcinoma, lung Personal history of nicotine dependence Asthma with chronic obstructive pulmonary disease (COPD) COPD (chronic obstructive pulmonary disease) Obesity (BMI 30.0-34.9) History of COVID-19 Left hip prosthetic joint infection Opioid dependence Shoulder pain Osteoarthritis Right leg swelling Arthritis, hip Family History Father Colon cancer Mother Cancer Surgical History Non-small cell cancer of left lung History of bronchoscopy History of total right hip replacement History of total left hip replacement History of lumbar surgery Social History Household Members: Family Household Members Other:: , lives with and 10 yo daughter Housing: House Are you a primary hospice home care coordinator to a significant other at home: No Do you presently have visiting nurse or other home services: No Alcohol intake: never Patient Tobacco Use Status: Former Tobacco user Cigarette Packs Per Day: 1 Years Smoked: onset 16yo, 1ppd x 40yrs, 40pyh e-Cigarette/Vaping Use: Never Used Second Hand Smoke Exposure: No Use of substances other than those prescribed or required for medical reasons: No Substance Use Frequency: Occasionally Have you been hit, kicked, punched, or otherwise hurt by someone within the past year? If so, by whom?: No Are you DNR?: No Advance Directives: No Advance Directives Information Provided: No Advance Directives on File: No Recently lost weight without trying: No How much weight loss: 34pounds or more Eating poorly because of decreased appetite: Yes Nutrition screen score: 5 Nutrition Risks: Anorexia Poor oral hygiene: Yes (missing teeth) service: No Current 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 Cognitive needs: No Hearing needs: No Vision needs: No Meds Allergies Allergy/AdvReac Type Severity Reaction Status Date / Time Penicillins Allergy Intermediate Vomiting Verified 12/10/23 06:43 Bees Allergy Severe anaphylaxis Uncoded 12/10/23 06:43 Active Medications: Current Medications Albuterol Sulfate (Albuterol Sulfate 90 Mcg 8 Gm Inhaler) 2 puff INHALE Q8H PRN PRN Reason: shortness of breath or wheezing Calcium Carbonate (Calcium Carbonate 750 Mg Tab.Chew) 750 mg PO Q4H PRN PRN Reason: Heartburn Cephalexin HCl (Cephalexin 500 Mg Capsule) 500 mg PO BID ALLYSSA Docusate Sodium (Docusate Sodium 100 Mg Capsule) 100 mg PO BID ALLYSSA Doxycycline Monohydrate (Doxycycline Monohydrate 100 Mg Capsule) 100 mg PO BID ALLYSSA Hydromorphone HCl (Hydromorphone Hcl 0.5 Mg/0.5 Ml Syringe) 0.5 mg IVPUSH Q3H PRN; Protocol PRN Reason: Pain, Severe (Pain Scale 7-10) Acetaminophen (Ofirmev) 1,000 mg in 100 mls @ 400 mls/hr IV Q6H ALLYSSA Lactated Ringer's (Lr) 1,000 mls @ 80 mls/hr IVCONT .[id number] ALLYSSA Magnesium Hydroxide (Milk Of Magnesia 30 Ml Oral.Susp) 30 ml PO DAILY PRN PRN Reason: Constipation Melatonin (Melatonin 3 Mg Tablet) 6 mg PO BEDTIME PRN PRN Reason: Insomnia Non-Formulary Medication (Esomeprazole Magnesium [Nexium 24hr]) 20 mg PO DAILY PRN PRN Reason: Acid Reflux Ondansetron HCl (Ondansetron Hcl 4 Mg/2 Ml Vial) 4 mg IVPUSH Q6H PRN PRN Reason: Nausea and Vomiting Oxycodone HCl (Oxycodone Hcl Immed Release 5 Mg Tablet) 5 mg PO Q4H PRN PRN Reason: Pain, Moderate(Pain Scale 4-6) Sodium Chloride (0.9 % Sodium Chloride Flush 3 Ml Syringe) 3 [facility]ations ?Medication ?Instructions ?Recorded ?Confirmed ?Last Taken ?Type cephalexin 500 mg capsule 500 mg PO BID 12/01/23 12/10/23 Unknown History esomeprazole magnesium 20 mg 20 mg PO DAILY PRN Acid Reflux 12/01/23 12/10/23 12/07/23 History capsule,delayed release (Nexium 24HR) bicalutamide 50 mg tablet 50 mg PO DAILY 12/10/23 12/10/23 Unknown History doxycycline monohydrate 100 mg 100 mg PO BID 12/10/23 12/10/23 12/09/23 History capsule dutasteride 0.5 mg capsule 0.5 mg PO DAILY 12/10/23 Unknown History fluticasone propionate 115 2 puff inhalation BID 12/10/23 12/10/23 Unknown History mcg-salmeterol 21 mcg/actuation HFA inhaler (Advair HFA) prednisone 2.5 mg tablet 2.5 mg PO BID 12/10/23 Unknown History tamsulosin 0.4 mg capsule 0.4 mg PO DAILY 12/10/23 Unknown History Physical Exam Vital Signs and Narrative: Vital Signs: Last Vital Signs Temp 97 F 12/10/23 12:45 Pulse 76 12/10/23 12:45 Resp 16 12/10/23 12:45 BP 115/59 L 12/10/23 12:45 Pulse Ox 95 12/10/23 12:45 O2 Del Method Room Air 12/10/23 12:45 O2 Flow Rate 5 12/10/23 12:00 BMI result Body Mass Index 30.3 General: AOx3, no acute distress Resp: Inspiratory and expiratory crackles bilaterally, left-sided rhonchi. Chest [address] left side, draining serosanguineous fluid CVS: S1, S2, RRR GI: +BS, NT, no distention Skin: Warm, dry Neuro: Cranial nerves II-XII grossly intact bilaterally. Motor grossly intact bilaterally Extremities: No edema Psych: Appropriate affect Results Labs 12/01/23 14:42 12/01/23 14:42 Labs: Laboratory Results - last 24 hr 12/01/23 12/10/23 14:34 06:26 Influenza Type A (PCR) NEGATIVE Influenza Type B (PCR) NEGATIVE RSV RNA Qual (PCR) NEGATIVE SARS-CoV-2 RNA (RT-PCR) NEGATIVE Blood Type A Positive Antibody Screen NEGATIVE Crossmatch See Detail Assessment and Plan (1) Non-small cell carcinoma of lung: Status: Acute Plan Patient is a 68-year-old male with a PMH significant for COPD, left hip prosthetic joint infection, non-small cell lung carcinoma, and prostate cancer w/likely mets to bone currently on hormone therapy who was admitted to the hospital under thoracic surgery services for left lower lobe lobectomy. POD0. Hospitalist consult for medical management. Non-small cell carcinoma of the lung S/P left lower lobe lobectomy, POD0 Incentive spiromentry Plan as per thoracic surgery COPD Not in acute exacerbation Not hypoxic, not on supplemental O2 Continue home inhalers Anemia H&H 9.0/29.4 on 12/08, slightly lower than baseline Follow H&H Thank you for allowing us to participate in the care of this patient. Will continue to follow along with you.
[2023-12-10] MEDS: Acetaminophen 1,000 MG/100 ML PIGGYBACK 400 MG IV ×2 (14:08→20:55)
[2023-12-10] MEDS: Lactated Ringers 1,000 ML 80 ML IVCONT (14:19)
--- NOTE | 2023-12-10 14:52 | PHA.MEDREC ---
Pharmacy Consult ? Medication Reconciliation Pharmacy has completed the medication reconciliation, spoke to patient at bedside who confirmed all medications as reflected on list.
[2023-12-10] MEDS: Albuterol Sulfate 90 MCG 8 GM INHALER 2 PUFF INHALE ×2 (16:01→23:13)
[2023-12-10] MEDS: 0.9 % Sodium Chloride Flush 3 ML SYRINGE IVFLUSH (17:07)
[2023-12-10] MEDS: cephALEXin 500 MG CAPSULE PO (20:55)
[2023-12-10] MEDS: Docusate Sodium 100 MG CAPSULE PO (20:55)
[2023-12-11] VITALS (8 sets, daily range): BP systolic 106–123; BP diastolic 56–67; PULSE 75–91; RESP 14–20; TEMP 36.1–36.7; O2SAT 95–99
[2023-12-11] MEDS: HYDROmorphone HCl 0.5 MG/0.5 ML SYRINGE IVPUSH ×7 (00:04→21:17)
[2023-12-11] MEDS: Melatonin 3 MG TABLET 6 MG PO ×2 (00:05→21:15)
[2023-12-11] MEDS: Acetaminophen 1,000 MG/100 ML PIGGYBACK 400 MG IV ×4 (01:34→19:11)
[2023-12-11] MEDS: Lactated Ringers 1,000 ML 80 ML IVCONT (01:38)
[2023-12-11] MEDS: guaiFEN/Codeine SF 200/20/10ML 10 ML LIQUID 5 ML PO ×3 (06:39→21:15)
[2023-12-11 07:02] LABS: MANUAL DIFF FLAG NO
[2023-12-11 07:18] LABS: Basophils Percent Auto 0.2 % (0-2); Eosinophils Percent Auto 0.1 % (0-4); Hematocrit 27.9 % (42.0-52.0); Imm Gran Abs Auto 0.13 X10*3/uL (0.00-0.03); Imm Gran Pct Auto 0.8 % (0.0-0.4); Lymphocytes Absolute Auto 1.7 X10*3/uL (1.2-4.9); Lymphocytes Percent Auto 11.1 % (20-40); Mean Corpuscular HGB Conc 32.3 g/dl (31.0-36.0); Mean Corpuscular Hemoglobin 25.6 pg (27.0-33.0); Mean Corpuscular Volume 79.3 fL (80.0-98.0); Mean Platelet Volume 8.4 fL (9.4-12.4); Monocytes Absolute Auto 1.1 X10*3/uL (0.1-1.2); Monocytes Percent Auto 7.1 % (2-11); Neutrophils Absolute Auto 12.6 x10*3/uL (2.0-8.3); Neutrophils Percent Auto 80.7 % (45-73); Platelet Count 489 X10*3/uL (160-400); Red Blood Count 3.52 X10*6/uL (4.60-5.80); Red Cell Distribution Width 17.4 % (11.0-16.0); White Blood Count 15.6 X10*3/uL (4.8-10.8)
[2023-12-11 07:36] LABS: Anion Gap 10 (12-20); Blood Urea Nitrogen 14 mg/dL (9-16); Calcium 6.7 mg/dL (8.4-10.2); Carbon Dioxide 24 mmol/L (22-29); Chloride 105 mmol/L (96-108); Creatinine Clr Calc Pharmacy 102.8; Estimated Glomerular Filt Rate > 60; Glucose Fasting 141 mg/dL (60-99); Potassium 3.9 mmol/L (3.3-5.1); Sodium 135 mmol/L (135-145)
[2023-12-11] MEDS: Docusate Sodium 100 MG CAPSULE PO (07:39)
[2023-12-11] MEDS: cephALEXin 500 MG CAPSULE PO (07:40)
[2023-12-11] MEDS: 0.9 % Sodium Chloride Flush 3 ML SYRINGE IVFLUSH ×3 (07:40→19:09)
[2023-12-11] MEDS: Albuterol Sulfate 90 MCG 8 GM INHALER 2 PUFF INHALE ×2 (07:46→15:39)
--- NOTE | 2023-12-11 08:14 | W.PM.OPN ---
Operative Note Operative Note Date of Service: 12/10/23 Pulmonary Resection Hilar Station: 7. Mediastinal Station #1: 6 Mediastinal Station #2: 9 Mediastinal Station #3: 10 , 11 Procedure performed with curative intent?: Yes General Surg. - Synoptic Notes Pulmonary Resection Hilar Station: 7. Mediastinal Station #1: 6 Mediastinal Station #2: 9 Mediastinal Station #3: 10 , 11 Procedure performed with curative intent?: Yes
--- NOTE | 2023-12-11 08:30 | PM.PNTS ---
Subjective Subjective Date of Service: 12/11/23 Interval history: Aside from incisional discomfort, patient had uneventful evening. He was out of bed, doing his incentive spirometer. Chest tube no air leak. Serosanguineous minimal output. A.m. chest x-ray pending Physical Exam Vital Signs: Vital Signs: Last Vital Signs Temp 97.0 F 12/11/23 08:00 Pulse 82 12/11/23 08:00 Resp 20 12/11/23 08:00 BP 112/64 12/11/23 08:00 Pulse Ox 98 12/11/23 08:00 O2 Del Method Room Air 12/11/23 08:00 O2 Flow Rate 5 12/10/23 12:00 BMI result Body Mass Index 30.3 Chest: Other: Dressings clean dry and intact. Chest tube intact. Procedures Date of Service Date of Service: 12/11/23 Progress Note: A&P Assessment and plan (1) Status post lobectomy of lung: Status: Acute Plan Out of bed/ambulate with chest tube to water seal there returned back to wall suction, encourage incentive spirometry, diet as tolerated, analgesic control Time Spent With Patient Time: Total time managing care of this patient today ____ minutes. Quality Stroke Does the patient have a stroke diagnosis?: No VTE Prior VTE?: No VTE Risk Level:: Surgical - low VTE Device Contraindication: N/A - Device Ordered VTE Drug Contraindication: Treatment Not Indicated
[2023-12-11] MEDS: oxyCODONE HCl Immed Release 5 MG TABLET PO (09:35)
--- NOTE | 2023-12-11 09:38 | MHC.CM.PN ---
IMM 12/10. Pt self-care, lives at home with his ex- and daughter. Pt states he has been trying to get services set up for someone to help clean, but has been unable to. CM to place referral to [facility] or [facility]. Pts son will transport him home. Pt educated on HCP, declined to complete one at this time. 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
--- NOTE | 2023-12-11 10:27 | HO.POSTANES ---
Post Anesthesia Evaluation Post Anesthesia Evaluation Date of Service: 12/10/23 Vital Signs: Vital Signs Temp Pulse Resp BP Pulse Ox O2 Del Method 12/11/23 08:00 97.0 F 82 20 112/64 98 Room Air 12/11/23 07:48 87 15 12/11/23 03:35 97.3 F 78 14 111/56 L 97 Room Air 12/11/23 00:00 97.5 F 82 14 123/58 L 98 Room Air 12/10/23 23:13 84 14 Anesthesia: General Endotracheal-GETA Mental Status: Awake Pain Control: Satisfactory (incisional pain , on meds) Nausea/Vomiting: None Hydration: Adequate Anesthesia-Related Issues: No Anes. Related Issues
[2023-12-11] MEDS: Bicalutamide 50 MG TABLET PO (10:56)
--- NOTE | 2023-12-11 11:30 | P.PNIM_ITS ---
Subjective Subjective Date of Service: 12/11/23 Interval History: Complaining of left chest pain at site of incision, otherwise denies shortness of breath no fevers, no chills no other acute events overnight, chest tube in place. Review of Systems All other system reviewed and are negative Physical Exam 2 Vital Signs: Vital Signs: Last Vital Signs Temp 97.0 F 12/11/23 08:00 Pulse 82 12/11/23 08:00 Resp 20 12/11/23 08:00 BP 112/64 12/11/23 08:00 Pulse Ox 98 12/11/23 08:00 O2 Del Method Room Air 12/11/23 08:00 O2 Flow Rate 5 12/10/23 12:00 BMI result Body Mass Index 30.3 Const: Other: General: No acute distress No JVD Resp: Lungs no acute distress, Chest tube in place left side, draining serosanguineous fluid CVS: S1, S2, RRR GI: Abdomen soft non tender bowel sounds audible Extremities no edema Neuro: Nonfocal Extremities: No edema Psych: Appropriate affect Objective Data Active Medications Albuterol Sulfate (Albuterol Sulfate 90 Mcg 8 Gm Inhaler) 2 puff INHALE RQ8H [facility] Last Admin: 12/11/23 07:46 Dose: 2 puff Documented By: GIOVANNI Bicalutamide (Bicalutamide 50 Mg Tablet) 50 mg PO DAILY [facility] Last Admin: 12/11/23 10:56 Dose: 50 mg Documented By: JEAN-CLAUDE Calcium Carbonate (Calcium Carbonate 750 Mg Tab.Chew) 750 mg PO Q4H PRN PRN Reason: Heartburn Cephalexin HCl (Cephalexin 500 Mg Capsule) 500 mg PO BID [facility] Last Admin: 12/11/23 07:40 Dose: 500 mg Documented By: JEAN-CLAUDE Docusate Sodium (Docusate Sodium 100 Mg Capsule) 100 mg PO BID [facility] Last Admin: 12/11/23 07:39 Dose: 100 mg Documented By: JEAN-CLAUDE Fluticasone/Vilanterol (Fluticasone/Vilanterol 100/25 Blst.W.Dev) 1 puff INHALE RDAILY [facility] Guaifenesin/Codeine Phosphate (Guaifen/Codeine Sf 200/20/10ml 10 Ml Liquid) 5 ml PO Q6H PRN PRN Reason: Cough Last Admin: 12/11/23 06:39 Dose: 5 ml Documented By: TONYA Hydromorphone HCl (Hydromorphone Hcl 0.5 Mg/0.5 Ml Syringe) 0.5 mg IVPUSH Q3H PRN; Protocol PRN Reason: Pain, Severe (Pain Scale 7-10) Last Admin: 12/11/23 10:57 Dose: 0.5 mg Documented By: JEAN-CLAUDE Acetaminophen (Ofirmev) 1,000 mg in 100 mls @ 400 mls/hr IV Q6H [facility] Last Infusion: 12/11/23 09:40 Dose: Infused Documented By: JEAN-CLAUDE Magnesium Hydroxide (Milk Of Magnesia 30 Ml Oral.Susp) 30 ml PO DAILY PRN PRN Reason: Constipation Melatonin (Melatonin 3 Mg Tablet) 6 mg PO BEDTIME PRN PRN Reason: Insomnia Last Admin: 12/11/23 00:05 Dose: 6 mg Documented By: TONYA Non-Formulary Medication (Abiraterone) 1,000 mg PO DAILY [facility] Omeprazole (Omeprazole 20 Mg Capsule.Dr) 20 mg PO DAILY PRN PRN Reason: Acid Reflux Ondansetron HCl (Ondansetron Hcl 4 Mg/2 Ml Vial) 4 mg IVPUSH Q6H PRN PRN Reason: Nausea and Vomiting Oxycodone HCl (Oxycodone Hcl Immed Release 5 Mg Tablet) 10 mg PO Q6H PRN PRN Reason: Pain, Moderate(Pain Scale 4-6) Sodium Chloride (0.9 % Sodium Chloride Flush 3 Ml Syringe) [facility] Last Admin: 12/11/23 07:40 Dose: 3 ml Documented By: JEAN-CLAUDE Labs 12/11/23 06:57 12/11/23 06:57 Labs: Laboratory Results - last 24 hr 12/01/23 12/11/23 14:34 06:57 MCV 79.3 L MCH 25.6 L MCHC 32.3 RDW 17.4 H Plt Count 489 H MPV 8.4 L Immature Gran % (Auto) 0.8 H Neut % (Auto) 80.7 H Lymph % (Auto) 11.1 L [place] % (Auto) 7.1 Eos % (Auto) 0.1 Baso % (Auto) 0.2 Lymph # (Auto) 1.7 [place] # (Auto) 1.1 Eos # (Auto) 0.0 Baso # (Auto) 0.0 Abs Immat Gran (auto) 0.13 H Absolute Neuts (auto) 12.6 H Absolute Nucleated RBC 0.000 Nucleated RBC % (auto) 0.0 Anion Gap 10 L Estim Creat Clear Calc 102.8 Estimated GFR > 60 Fasting Glucose 141 H Calcium 6.7 L D Blood Type A Positive Antibody Screen NEGATIVE Crossmatch See Detail Assessment and Plan (1) Status post lobectomy of lung: Status: Acute (2) Prostate cancer metastatic to bone: Status: Acute Plan 68-year-old male with a PMH significant for COPD, left hip prosthetic joint infection, non-small cell lung carcinoma, and prostate cancer w/likely mets to bone currently on hormone therapy who was admitted to the hospital under thoracic surgery services for left lower lobe lobectomy. POD0. Hospitalist consult for medical management. Non-small cell carcinoma of the lung S/P left lower lobe lobectomy, POD 1 Pain at site of incision, Increase oxycodone to 10 mg q.6 hours, continue Dilaudid as needed Encourage Incentive spiromentry, ambulation Plan as per thoracic surgery Leukocytosis likely reactive, no fevers, no shortness of breath or worsening cough, no urinary symptoms COPD Not in acute exacerbation, resume home inhalers, no hypoxia Anemia H&H 9.0/27.9 on 12/10, slightly lower than baseline Follow H&H History of prostate CA with bone Mets resume home medications outpatient follow- up with Urology Thank you for allowing us to participate in the care of this patient. Will continue to follow along with you. Quality Stroke Does the patient have a stroke diagnosis?: No VTE Prior VTE?: No VTE Risk Level:: Surgical - low VTE Device Contraindication: N/A - Device Ordered VTE Drug Contraindication: Treatment Not Indicated
[2023-12-11] MEDS: oxyCODONE HCl Immed Release 5 MG TABLET 10 MG PO ×2 (13:29→19:41)
[2023-12-11] MEDS: Calcium Carbonate 750 MG TAB.CHEW PO (17:42)
[2023-12-11] MEDS: ondansetron HCL 4 MG/2 ML VIAL IVPUSH (19:07)
[2023-12-12] VITALS (11 sets, daily range): BP systolic 111–151; BP diastolic 57–65; PULSE 79–99; RESP 16–22; TEMP 36.2–37.1; O2SAT 93–97
[2023-12-12] MEDS: HYDROmorphone HCl 0.5 MG/0.5 ML SYRINGE IVPUSH ×7 (00:20→23:57)
[2023-12-12] MEDS: Acetaminophen 1,000 MG/100 ML PIGGYBACK 400 MG IV ×3 (00:21→20:02)
[2023-12-12] MEDS: ondansetron HCL 4 MG/2 ML VIAL IVPUSH ×3 (00:41→16:21)
--- NOTE | 2023-12-12 04:01 | PC.NURSE ---
Addendum entered by Rosa Maria Herrera RN 12/12/23 06:43: Pt states he has not slept in three nights and would like medication to hopefully be able to sleep tonight. Original Note: Pt AOx4, able to make needs known. He vomited at the beginning of the shift, contents appeared to be undigested food. Pt refused his 2100 meds, education provided, pt still refused. Approx 0015 pt vomited again, this time mostly liquid/bile in appearance. See MAR for med administration. He is a standby assist, continent of urine. Call early within reach.
[2023-12-12] MEDS: guaiFEN/Codeine SF 200/20/10ML 10 ML LIQUID 5 ML PO ×2 (06:08→11:32)
[2023-12-12] MEDS: oxyCODONE HCl Immed Release 5 MG TABLET 10 MG PO ×3 (06:16→18:16)
[2023-12-12] MEDS: Fluticasone/Vilanterol 100/25 BLST.W.DEV 1 PUFF INHALE (07:57)
[2023-12-12] MEDS: Albuterol Sulfate 90 MCG 8 GM INHALER 2 PUFF INHALE ×2 (07:57→15:06)
[2023-12-12] MEDS: Docusate Sodium 100 MG CAPSULE PO ×2 (08:47→19:58)
[2023-12-12] MEDS: Bicalutamide 50 MG TABLET PO (08:47)
[2023-12-12] MEDS: Omeprazole 20 MG CAPSULE.DR PO (08:50)
[2023-12-12] MEDS: 0.9 % Sodium Chloride Flush 3 ML SYRINGE IVFLUSH ×3 (09:13→21:24)
--- NOTE | 2023-12-12 09:49 | PM.PNGS ---
Subjective Subjective Date of Service: 12/12/23 Interval history: Denies new complaints Says had a little bit of nausea yesterday Says he has no appetite he had Physical Exam Vital Signs: Vital Signs: Last Vital Signs Temp 97.1 F 12/12/23 08:00 Pulse 88 12/12/23 08:00 Resp 22 H 12/12/23 08:00 BP 113/65 12/12/23 08:00 Pulse Ox 96 12/12/23 08:00 O2 Del Method Room Air 12/12/23 08:00 O2 Flow Rate 5 12/10/23 12:00 BMI result Body Mass Index 30.3 Const: Other: Mildly short of breath General: comfortable Chest: Other: Chest tube in place, no air leak Resp: Other: Mildly short of breath Cardio: Rate: regular rate GI: Palpation (GI): Soft to palpation Objective Data Active Medications Albuterol Sulfate (Albuterol Sulfate 90 Mcg 8 Gm Inhaler) 2 puff INHALE RQ8H [facility] Last Admin: 12/12/23 07:57 Dose: 2 puff Documented By: LEONA Bicalutamide (Bicalutamide 50 Mg Tablet) 50 mg PO DAILY [facility] Last Admin: 12/12/23 08:47 Dose: 50 mg Documented By: MICHAEL Calcium Carbonate (Calcium Carbonate 750 Mg Tab.Chew) 750 mg PO Q4H PRN PRN Reason: Heartburn Last Admin: 12/11/23 17:42 Dose: 750 mg Documented By: JEAN-CLAUDE Cephalexin HCl (Cephalexin 500 Mg Capsule) 500 mg PO BID [facility] Last Admin: 12/12/23 08:47 Dose: 500 mg Documented By: MICHAEL Docusate Sodium (Docusate Sodium 100 Mg Capsule) 100 mg PO BID [facility] Last Admin: 12/12/23 08:47 Dose: 100 mg Documented By: MICHAEL Fluticasone/Vilanterol (Fluticasone/Vilanterol 100/25 Blst.W.Dev) 1 puff INHALE RDAILY [facility] Last Admin: 12/12/23 07:57 Dose: 1 puff Documented By: LEONA Guaifenesin/Codeine Phosphate (Guaifen/Codeine Sf 200/20/10ml 10 Ml Liquid) 5 ml PO Q6H PRN PRN Reason: Cough Last Admin: 12/12/23 06:08 Dose: 5 ml Documented By: IRVING Hydromorphone HCl (Hydromorphone Hcl 0.5 Mg/0.5 Ml Syringe) 0.5 mg IVPUSH Q3H PRN; Protocol PRN Reason: Pain, Severe (Pain Scale 7-10) Last Admin: 12/12/23 08:48 Dose: 0.5 mg Documented By: MICHAEL Acetaminophen (Ofirmev) 1,000 mg in 100 mls @ 400 mls/hr IV Q6H [facility] Last Infusion: 12/12/23 09:41 Dose: Infused Documented By: MICHAEL Magnesium Hydroxide (Milk Of Magnesia 30 Ml Oral.Susp) 30 ml PO DAILY PRN PRN Reason: Constipation Melatonin (Melatonin 3 Mg Tablet) 6 mg PO BEDTIME PRN PRN Reason: Insomnia Last Admin: 12/11/23 21:15 Dose: 6 mg Documented By: IRVING Pat Own Med ( Abiraterone 250 Mg Tablet) 1,000 mg PO DAILY@0700 [facility] Omeprazole (Omeprazole 20 Mg Capsule.Dr) 20 mg PO DAILY PRN PRN Reason: Acid Reflux Last Admin: 12/12/23 08:50 Dose: 20 mg Documented By: MICHAEL Ondansetron HCl (Ondansetron Hcl 4 Mg/2 Ml Vial) 4 mg IVPUSH Q6H PRN PRN Reason: Nausea and Vomiting Last Admin: 12/12/23 08:50 Dose: 4 mg Documented By: MICHAEL Oxycodone HCl (Oxycodone Hcl Immed Release 5 Mg Tablet) 10 mg PO Q6H PRN PRN Reason: Pain, Moderate(Pain Scale 4-6) Last Admin: 12/12/23 06:16 Dose: 10 mg Documented By: IRVING Sodium Chloride (0.9 % Sodium Chloride Flush 3 Ml Syringe) 3 ml IVFLUSH [facility] Last Admin: 12/12/23 09:13 Dose: 3 ml Documented By: MICHAEL Labs 12/11/23 06:57 12/11/23 06:57 Labs: Laboratory Results - last 24 hr 12/01/23 14:34 Blood Type A Positive Antibody Screen NEGATIVE Crossmatch See Detail Procedures Date of Service Date of Service: 10/26/24 Progress Note: A&P Assessment and plan (1) Status post lobectomy of lung: Status: Acute Assessment and Plan: Chest tube in place Incentive spirometry Pain management Continue close monitoring for now Encouraged to get out of bed and ambulate Time Spent With Patient Time: Total time managing care of this patient today ____ minutes. Quality Stroke Does the patient have a stroke diagnosis?: No VTE Prior VTE?: No VTE Risk Level:: Surgical - low VTE Device Contraindication: N/A - Device Ordered VTE Drug Contraindication: Treatment Not Indicated
--- NOTE | 2023-12-12 11:32 | HO.PM.IMPN ---
Subjective Subjective Date of Service: 12/12/23 Interval History: Had 2 episodes of vomiting this morning, unable to tolerate breakfast, unable to tolerate oral home antibiotics, complaining of pain at incision site left chest, denies fever, no chills, intermittent cough Productive of clear phlegm with specks of blood. Constitutional All other system reviewed and are negative. Physical Exam Vital Signs: Vital Signs: Last Vital Signs Temp 97.1 F 12/12/23 08:00 Pulse 88 12/12/23 08:00 Resp 22 H 12/12/23 08:00 BP 113/65 12/12/23 08:00 Pulse Ox 96 12/12/23 08:00 O2 Del Method Room Air 12/12/23 08:00 O2 Flow Rate 5 12/10/23 12:00 BMI result Body Mass Index 30.3 Const: Other: General: No acute distress No JVD Resp: Lungs no acute distress, bilateral rhonchi, Chest tube in place left side, draining serosanguineous fluid, dressing right lower chest in place CVS: S1, S2, RRR GI: Abdomen soft non tender bowel sounds audible Extremities no edema Neuro: Nonfocal Extremities: No edema Psych: Appropriate affect Objective Data Active Medications Albuterol Sulfate (Albuterol Sulfate 90 Mcg 8 Gm Inhaler) 2 puff INHALE RQ8H [facility] Last Admin: 12/12/23 07:57 Dose: 2 puff Documented By: LEONA Bicalutamide (Bicalutamide 50 Mg Tablet) 50 mg PO DAILY [facility] Last Admin: 12/12/23 08:47 Dose: 50 mg Documented By: MICHAEL Calcium Carbonate (Calcium Carbonate 750 Mg Tab.Chew) 750 mg PO Q4H PRN PRN Reason: Heartburn Last Admin: 12/11/23 17:42 Dose: 750 mg Documented By: JEAN-CLAUDE Cephalexin HCl (Cephalexin 500 Mg Capsule) 500 mg PO BID [facility] Last Admin: 12/12/23 10:14 Dose: Not Given Documented By: MICHAEL Non-Admin Reason: Patient Refused Docusate Sodium (Docusate Sodium 100 Mg Capsule) 100 mg PO BID [facility] Last Admin: 12/12/23 08:47 Dose: 100 mg Documented By: MICHAEL Fluticasone/Vilanterol (Fluticasone/Vilanterol 100/25 Blst.W.Dev) 1 puff INHALE RDAILY [facility] Last Admin: 12/12/23 07:57 Dose: 1 puff Documented By: LEONA Guaifenesin/Codeine Phosphate (Guaifen/Codeine Sf 200/20/10ml 10 Ml Liquid) 5 ml PO Q6H PRN PRN Reason: Cough Last Admin: 12/12/23 06:08 Dose: 5 ml Documented By: IRVING Hydromorphone HCl (Hydromorphone Hcl 0.5 Mg/0.5 Ml Syringe) 0.5 mg IVPUSH Q3H PRN; Protocol PRN Reason: Pain, Severe (Pain Scale 7-10) Last Admin: 12/12/23 08:48 Dose: 0.5 mg Documented By: MICHAEL Acetaminophen (Ofirmev) 1,000 mg in 100 mls @ 400 mls/hr IV Q6H [facility] Last Infusion: 12/12/23 09:41 Dose: Infused Documented By: MICHAEL Magnesium Hydroxide (Milk Of Magnesia 30 Ml Oral.Susp) 30 ml PO DAILY PRN PRN Reason: Constipation Melatonin (Melatonin 3 Mg Tablet) 6 mg PO BEDTIME PRN PRN Reason: Insomnia Last Admin: 12/11/23 21:15 Dose: 6 mg Documented By: IRVING Pat Own Med ( Abiraterone 250 Mg Tablet) 1,000 mg PO DAILY@0700 [facility] Omeprazole (Omeprazole 20 Mg Capsule.Dr) 20 mg PO DAILY PRN PRN Reason: Acid Reflux Last Admin: 12/12/23 08:50 Dose: 20 mg Documented By: MICHAEL Ondansetron HCl (Ondansetron Hcl 4 Mg/2 Ml Vial) 4 mg IVPUSH Q6H PRN PRN Reason: Nausea and Vomiting Last Admin: 12/12/23 08:50 Dose: 4 mg Documented By: MICHAEL Oxycodone HCl (Oxycodone Hcl Immed Release 5 Mg Tablet) 10 mg PO Q6H PRN PRN Reason: Pain, Moderate(Pain Scale 4-6) Last Admin: 12/12/23 06:16 Dose: 10 mg Documented By: IRVING Sodium Chloride (0.9 % Sodium Chloride Flush 3 Ml Syringe) [facility] Last Admin: 12/12/23 09:13 Dose: 3 ml Documented By: MICHAEL Labs 12/11/23 06:57 12/11/23 06:57 Assessment and Plan (1) Status post lobectomy of lung: Status: Acute (2) Nausea & vomiting: Status: Acute Plan 68-year-old male with a PMH significant for COPD, left hip prosthetic joint infection, non-small cell lung carcinoma, and prostate cancer w/likely mets to bone currently on hormone therapy who was admitted to the hospital under thoracic surgery services for left lower lobe lobectomy. POD0. Hospitalist consult for medical management. Non-small cell carcinoma of the lung S/P left lower lobe lobectomy, POD 2 Pain at site of incision, continue oxycodone 10 mg q.6 hours, continue Dilaudid as needed Encourage Incentive spiromentry, ambulation Plan as per thoracic surgery Nausea/vomiting Likely due to by mouth antibiotic that he is on chronically for left hip infection will switch to IV ceftriaxone and DC Keflex Leukocytosis likely reactive, no fevers, no shortness of breath or worsening cough, no urinary symptoms, follow CBC COPD Not in acute exacerbation, resume home inhalers, no hypoxia Anemia H&H 9.0/27.9 on 12/10, slightly lower than baseline Follow H&H History of prostate CA with bone Mets resume home medications outpatient follow-up with Urology Thank you for allowing us to participate in the care of this patient. Will continue to follow along with you. Quality Stroke Does the patient have a stroke diagnosis?: No VTE Prior VTE?: No VTE Risk Level:: Surgical - low VTE Device Contraindication: N/A - Device Ordered VTE Drug Contraindication: Treatment Not Indicated
[2023-12-12] MEDS: [UNRECOGNIZED DRUG - OTHER] 1000 EACH PO (11:34)
[2023-12-12] MEDS: cefTRIAXone sodium 1 GM VIAL IVPUSH (13:11)
[2023-12-12] MEDS: traZODone HCL 50 MG TABLET PO (21:23)
[2023-12-12] MEDS: Melatonin 3 MG TABLET 6 MG PO (21:23)
[2023-12-13] VITALS (10 sets, daily range): BP systolic 106–131; BP diastolic 54–60; PULSE 65–89; RESP 8–20; TEMP 36.2–37.8; O2SAT 94–98
[2023-12-13] MEDS: Acetaminophen 1,000 MG/100 ML PIGGYBACK 400 MG IV (02:15)
[2023-12-13] MEDS: oxyCODONE HCl Immed Release 5 MG TABLET 10 MG PO ×3 (02:19→19:56)
[2023-12-13 07:07] LABS: Hematocrit 27.2 % (42.0-52.0); Hemoglobin 8.5 g/dl (14.0-18.0); Mean Corpuscular HGB Conc 31.3 g/dl (31.0-36.0); Mean Corpuscular Hemoglobin 25.3 pg (27.0-33.0); Mean Platelet Volume 8.2 fL (9.4-12.4); Platelet Count 445 X10*3/uL (160-400); Red Blood Count 3.36 X10*6/uL (4.60-5.80); Red Cell Distribution Width 17.8 % (11.0-16.0); White Blood Count 13.3 X10*3/uL (4.8-10.8)
[2023-12-13] MEDS: Bicalutamide 50 MG TABLET PO ×2 (07:39→11:14)
[2023-12-13] MEDS: [UNRECOGNIZED DRUG - OTHER] 1000 EACH PO (07:39)
[2023-12-13] MEDS: HYDROmorphone HCl 0.5 MG/0.5 ML SYRINGE IVPUSH ×2 (07:42→15:50)
[2023-12-13] MEDS: Albuterol Sulfate 90 MCG 8 GM INHALER 2 PUFF INHALE ×2 (07:48→15:16)
[2023-12-13] MEDS: Fluticasone/Vilanterol 100/25 BLST.W.DEV 1 PUFF INHALE (07:51)
--- NOTE | 2023-12-13 09:14 | P.PNGS_ITS ---
Subjective Subjective Date of Service: 12/13/23 Interval history: slept well says he feels well today denies complaints no events overnight as per nurse Physical Exam 2 Vital Signs: Vital Signs: Last Vital Signs Temp 97.1 F 12/13/23 07:59 Pulse 84 12/13/23 07:59 Resp 18 12/13/23 07:59 BP 127/58 L 12/13/23 07:59 Pulse Ox 98 12/13/23 07:59 O2 Del Method Room Air 12/13/23 07:59 O2 Flow Rate 5 12/10/23 12:00 BMI result Body Mass Index 30.3 Const: Other: on recliner General: comfortable and no acute distress Chest: Other: chest tube in place, functioning well, minimal serosanguinous output, no leak Resp: Effort & Inspection: normal respiratory effort Cardio: Rate: regular rate GI: Palpation (GI): Soft to palpation, not firm, nontender and no guarding Objective Data Active Medications Albuterol Sulfate (Albuterol Sulfate 90 Mcg 8 Gm Inhaler) 2 puff INHALE RQ8H [facility] Last Admin: 12/13/23 07:48 Dose: 2 puff Documented By: LEONA Bicalutamide (Bicalutamide 50 Mg Tablet) 50 mg PO DAILY [facility] Last Admin: 12/13/23 07:39 Dose: 50 mg Documented By: KAN Calcium Carbonate (Calcium Carbonate 750 Mg Tab.Chew) 750 mg PO Q4H PRN PRN Reason: Heartburn Last Admin: 12/11/23 17:42 Dose: 750 mg Documented By: JEAN-CLAUDE Ceftriaxone Sodium (Ceftriaxone Sodium 1 Gm Vial) 1 gm IVPUSH Q24H [facility] Last Admin: 12/12/23 13:11 Dose: 1 gm Documented By: MICHAEL Docusate Sodium (Docusate Sodium 100 Mg Capsule) 100 mg PO BID [facility] Last Admin: 12/12/23 19:58 Dose: 100 mg Documented By: [email or web address] Fluticasone/Vilanterol (Fluticasone/Vilanterol 100/25 Blst.W.Dev) 1 puff INHALE RDAILY [facility] Last Admin: 12/13/23 07:51 Dose: 1 puff Documented By: LEONA Guaifenesin/Codeine Phosphate (Guaifen/Codeine Sf 200/20/10ml 10 Ml Liquid) 5 ml PO Q6H PRN PRN Reason: Cough Last Admin: 12/12/23 11:32 Dose: 5 ml Documented By: MICHAEL Hydromorphone HCl (Hydromorphone Hcl 0.5 Mg/0.5 Ml Syringe) 0.5 mg IVPUSH Q3H PRN; Protocol PRN Reason: Pain, Severe (Pain Scale 7-10) Last Admin: 12/13/23 07:42 Dose: 0.5 mg Documented By: KAN Magnesium Hydroxide (Milk Of Magnesia 30 Ml Oral.Susp) 30 ml PO DAILY PRN PRN Reason: Constipation Melatonin (Melatonin 3 Mg Tablet) 6 mg PO BEDTIME PRN PRN Reason: Insomnia Last Admin: 12/12/23 21:23 Dose: 6 mg Documented By: DA Pat Own Med ( Abiraterone 250 Mg Tablet) 1,000 mg PO DAILY@0700 [facility] Last Admin: 12/13/23 07:39 Dose: 1,000 mg Documented By: KAN Omeprazole (Omeprazole 20 Mg Capsule.Dr) 20 mg PO DAILY PRN PRN Reason: Acid Reflux Last Admin: 12/12/23 08:50 Dose: 20 mg Documented By: MICHAEL Ondansetron HCl (Ondansetron Hcl 4 Mg/2 Ml Vial) 4 mg IVPUSH Q6H PRN PRN Reason: Nausea and Vomiting Last Admin: 12/12/23 16:21 Dose: 4 mg Documented By: MICHAEL Oxycodone HCl (Oxycodone Hcl Immed Release 5 Mg Tablet) 10 mg PO Q6H PRN PRN Reason: Pain, Moderate(Pain Scale 4-6) Last Admin: 12/13/23 02:19 Dose: 10 mg Documented By: DA Polyethylene Glycol (Polyethylene Glycol 3350 17 Gm Powd.Pack) 17 gm PO DAILY [facility] Sodium Chloride (0.9 % Sodium Chloride Flush 3 Ml Syringe) 3 ml IVFLUSH [facility] Last Admin: 12/12/23 21:24 Dose: 3 ml Documented By: DA Trazodone HCl (Trazodone Hcl 50 Mg Tablet) 50 mg PO BEDTIME PRN PRN Reason: Insomnia Last Admin: 12/12/23 21:23 Dose: 50 mg Documented By: DA Labs 12/13/23 06:30 12/11/23 06:57 Labs: Laboratory Results - last 24 hr 12/13/23 06:30 MCV 81.0 MCH 25.3 L MCHC 31.3 RDW 17.8 H Plt Count 445 H MPV 8.2 L Absolute Nucleated RBC 0.000 Nucleated RBC % (auto) 0.0 Procedures Date of Service Date of Service: 12/13/23 Progress Note: A&P Assessment and plan (1) Status post lobectomy of lung: Status: Acute Assessment and Plan: seems to be doing well postop chest tube in place, no obvious leak stable VS good pain control no abdl pain or nausea this morning possible dc of chest tube tomorrow Time Spent With Patient Time: Total time managing care of this patient today ____ minutes. Quality Stroke Does the patient have a stroke diagnosis?: No VTE Prior VTE?: No VTE Risk Level:: Surgical - low VTE Device Contraindication: N/A - Device Ordered VTE Drug Contraindication: Treatment Not Indicated
--- NOTE | 2023-12-13 11:11 | P.PNIM_ITS ---
Subjective Subjective Date of Service: 12/13/23 Interval History: Slept well last night, complaining of persistent pain at site of incision, no bowel movement in last few days, denies nausea, no vomiting, no other acute issues denies shortness of breath no lightheadedness, no dizziness. Review of Systems All other system reviewed and are negative. Physical Exam 2 Vital Signs: Vital Signs: Last Vital Signs Temp 97.1 F 12/13/23 07:59 Pulse 84 12/13/23 07:59 Resp 18 12/13/23 07:59 BP 127/58 L 12/13/23 07:59 Pulse Ox 98 12/13/23 07:59 O2 Del Method Room Air 12/13/23 07:59 O2 Flow Rate 5 12/10/23 12:00 BMI result Body Mass Index 30.3 Const: Other: General: No acute distress No JVD Resp: Lungs no acute distress, bilateral rhonchi, Chest tube in place left side, draining serosanguineous fluid, dressing right lower chest in place CVS: S1, S2, RRR GI: Abdomen soft non tender bowel sounds audible Extremities no edema Neuro: Nonfocal Extremities: No edema Psych: Appropriate affect Objective Data Active Medications Albuterol Sulfate (Albuterol Sulfate 90 Mcg 8 Gm Inhaler) 2 puff INHALE RQ8H [facility] Last Admin: 12/13/23 07:48 Dose: 2 puff Documented By: LEONA Bicalutamide (Bicalutamide 50 Mg Tablet) 50 mg PO DAILY [facility] Last Admin: 12/13/23 07:39 Dose: 50 mg Documented By: KAN Calcium Carbonate (Calcium Carbonate 750 Mg Tab.Chew) 750 mg PO Q4H PRN PRN Reason: Heartburn Last Admin: 12/11/23 17:42 Dose: 750 mg Documented By: JEAN-CLAUDE Ceftriaxone Sodium (Ceftriaxone Sodium 1 Gm Vial) 1 gm IVPUSH Q24H [facility] Last Admin: 12/12/23 13:11 Dose: 1 gm Documented By: MICHAEL Docusate Sodium (Docusate Sodium 100 Mg Capsule) 100 mg PO BID [facility] Last Admin: 12/12/23 19:58 Dose: 100 mg Documented By: MARCUS-ZADRNeno Fluticasone/Vilanterol (Fluticasone/Vilanterol 100/25 Blst.W.Dev) 1 puff INHALE RDAILY [facility] Last Admin: 12/13/23 07:51 Dose: 1 puff Documented By: LEONA Guaifenesin/Codeine Phosphate (Guaifen/Codeine Sf 200/20/10ml 10 Ml Liquid) 5 ml PO Q6H PRN PRN Reason: Cough Last Admin: 12/12/23 11:32 Dose: 5 ml Documented By: MICHAEL Hydromorphone HCl (Hydromorphone Hcl 0.5 Mg/0.5 Ml Syringe) 0.5 mg IVPUSH Q3H PRN; Protocol PRN Reason: Pain, Severe (Pain Scale 7-10) Last Admin: 12/13/23 07:42 Dose: 0.5 mg Documented By: AKN Magnesium Hydroxide (Milk Of Magnesia 30 Ml Oral.Susp) 30 ml PO DAILY PRN PRN Reason: Constipation Melatonin (Melatonin 3 Mg Tablet) 6 mg PO BEDTIME PRN PRN Reason: Insomnia Last Admin: 12/12/23 21:23 Dose: 6 mg Documented By: DA Pat Own Med ( Abiraterone 250 Mg Tablet) 1,000 mg PO DAILY@0700 [facility] Last Admin: 12/13/23 07:39 Dose: 1,000 mg Documented By: KAN Omeprazole (Omeprazole 20 Mg Capsule.Dr) 20 mg PO DAILY PRN PRN Reason: Acid Reflux Last Admin: 12/12/23 08:50 Dose: 20 mg Documented By: MICHAEL Ondansetron HCl (Ondansetron Hcl 4 Mg/2 Ml Vial) 4 mg IVPUSH Q6H PRN PRN Reason: Nausea and Vomiting Last Admin: 12/12/23 16:21 Dose: 4 mg Documented By: MICHAEL Oxycodone HCl (Oxycodone Hcl Immed Release 5 Mg Tablet) 10 mg PO Q6H PRN PRN Reason: Pain, Moderate(Pain Scale 4-6) Last Admin: 12/13/23 02:19 Dose: 10 mg Documented By: DA Polyethylene Glycol (Polyethylene Glycol 3350 17 Gm Powd.Pack) 17 gm PO DAILY [facility] Sodium Chloride (0.9 % Sodium Chloride Flush 3 Ml Syringe) 3 ml IVFLUSH QSHIFT [facility] Last Admin: 12/12/23 21:24 Dose: 3 ml Documented By: DA Trazodone HCl (Trazodone Hcl 50 Mg Tablet) 50 mg PO BEDTIME PRN PRN Reason: Insomnia Last Admin: 12/12/23 21:23 Dose: 50 mg Documented By: DA Labs 12/13/23 06:30 12/11/23 06:57 Labs: Laboratory Results - last 24 hr 12/13/23 06:30 MCV 81.0 MCH 25.3 L MCHC 31.3 RDW 17.8 H Plt Count 445 H MPV 8.2 L Absolute Nucleated RBC 0.000 Nucleated RBC % (auto) 0.0 Assessment and Plan (1) Nausea & vomiting: Status: Acute (2) Status post lobectomy of lung: Status: Acute Plan 68-year-old male with a PMH significant for COPD, left hip prosthetic joint infection, non-small cell lung carcinoma, and prostate cancer w/likely mets to bone currently on hormone therapy who was admitted to the hospital under thoracic surgery services for left lower lobe lobectomy. POD0. Hospitalist consult for medical management. Non-small cell carcinoma of the lung S/P left lower lobe lobectomy, POD 3 Pain at site of incision, continue oxycodone 10 mg q.6 hours, continue Dilaudid as needed, DC IV Tylenol Encourage Incentive spiromentry, ambulation Plan as per thoracic surgery Add stool softeners Nausea/vomiting Resolved was likely due to by mouth antibiotics Leukocytosis likely reactive, no fevers, no shortness of breath or worsening cough, no urinary symptoms, follow CBC, on IV ceftriaxone for chronic right hip infection will cover uri infection. COPD Not in acute exacerbation, resume home inhalers, no hypoxia Anemia H&H dropped to 8.5/27.2 lower than baseline, likely due to recent surgery, hematocrit above transfusion threshold Follow H&H History of prostate CA with bone Mets resume home medications outpatient follow- up with Urology Thank you for allowing us to participate in the care of this patient. Will continue to follow along with you. Quality Stroke Does the patient have a stroke diagnosis?: No VTE Prior VTE?: No VTE Risk Level:: Surgical - low VTE Device Contraindication: N/A - Device Ordered VTE Drug Contraindication: Treatment Not Indicated
[2023-12-13] MEDS: cefTRIAXone sodium 1 GM VIAL IVPUSH (11:13)
[2023-12-13] MEDS: polyethylene glycoL 3350 17 GM POWD.PACK PO (11:14)
[2023-12-13] MEDS: Docusate Sodium 100 MG CAPSULE PO ×2 (11:15→19:57)
[2023-12-13] MEDS: 0.9 % Sodium Chloride Flush 3 ML SYRINGE IVFLUSH (11:24)
[2023-12-13] MEDS: Acetaminophen 325 MG TABLET 650 MG PO (16:01)
[2023-12-13] MEDS: traZODone HCL 50 MG TABLET PO (19:57)
[2023-12-14] VITALS (10 sets, daily range): BP systolic 115–134; BP diastolic 56–61; PULSE 84–97; RESP 12–20; TEMP 36.1–37.6; O2SAT 88–99
[2023-12-14] MEDS: HYDROmorphone HCl 0.5 MG/0.5 ML SYRINGE IVPUSH ×3 (00:24→21:44)
[2023-12-14] MEDS: 0.9 % Sodium Chloride Flush 3 ML SYRINGE IVFLUSH ×2 (00:25→23:47)
[2023-12-14] MEDS: oxyCODONE HCl Immed Release 5 MG TABLET 10 MG PO ×3 (06:07→23:36)
--- NOTE | 2023-12-14 06:54 | PC.NURSE ---
Patient alert and oriented x 4, c/o rib pain, medicated with prn medications per APR, RA, speaks in clear sentences with no breathing difficulty. Utilizing incentive spirometer up to 1500, sits out of bed in recliner. Compliant with care.
--- NOTE | 2023-12-14 07:03 | P.PNTS_ITS ---
Subjective Subjective Date of Service: 12/14/23 Interval history: Aside from incisional discomfort, patient was doing well. Tolerating his diet. He is passing flatus. He has taken stool softeners but has not had a bowel movement. No acute respiratory symptoms. H&H 8.5/27.2 Physical Exam Vital Signs: Vital Signs: Last Vital Signs Temp 98.3 F 12/14/23 03:54 Pulse 89 12/14/23 03:54 Resp 20 12/14/23 03:54 BP 116/56 L 12/14/23 03:54 Pulse Ox 97 12/14/23 03:54 O2 Del Method Room Air 12/14/23 03:54 O2 Flow Rate 5 12/10/23 12:00 BMI result Body Mass Index 30.3 Chest: Other: Incision clean dry and intact healing very well. Pleur-evac minimal output, no air leak Procedures Date of Service Date of Service: 12/14/23 Progress Note: A&P Assessment and plan (1) Status post lobectomy of lung: Status: Acute Plan For chest tube removal. Consider blood transfusion with low H and H low patient is hemodynamically stable. Encourage incentive spirometry. Purgatives/stool softeners as needed. Consider DC home later today. VNA services for chest tube site care Time Spent With Patient Time: Total time managing care of this patient today ____ minutes. Quality Stroke Does the patient have a stroke diagnosis?: No VTE Prior VTE?: No VTE Risk Level:: Surgical - low VTE Device Contraindication: N/A - Device Ordered VTE Drug Contraindication: Treatment Not Indicated
[2023-12-14] MEDS: [UNRECOGNIZED DRUG - OTHER] 1000 EACH PO (07:04)
[2023-12-14] MEDS: Albuterol Sulfate 90 MCG 8 GM INHALER 2 PUFF INHALE ×3 (07:42→23:53)
[2023-12-14] MEDS: Fluticasone/Vilanterol 100/25 BLST.W.DEV 1 PUFF INHALE (07:49)
[2023-12-14] MEDS: polyethylene glycoL 3350 17 GM POWD.PACK PO (08:04)
[2023-12-14] MEDS: Docusate Sodium 100 MG CAPSULE PO ×2 (08:04→21:43)
[2023-12-14] MEDS: Milk of Magnesia 30 ML ORAL.SUSP PO (08:04)
--- NOTE | 2023-12-14 11:03 | HO.PM.IMPN ---
Subjective Subjective Date of Service: 12/14/23 Interval History: Denies shortness of breath, good pain control left chest, no bowel movement in last several days, no abdominal pain, no nausea, no vomiting tolerating diet. Review of Systems All other system reviewed and are negative. Physical Exam Vital Signs: Vital Signs: Last Vital Signs Temp 98.6 F 12/14/23 10:53 Pulse 86 12/14/23 10:53 Resp 18 12/14/23 10:53 BP 127/59 L 12/14/23 10:53 Pulse Ox 96 12/14/23 10:53 O2 Del Method Room Air 12/14/23 10:53 O2 Flow Rate 5 12/10/23 12:00 BMI result Body Mass Index 30.3 Const: Other: General: No acute distress No JVD Resp: Lungs no acute distress, clear to auscultation ,few rhonchi, Chest tube in place left side, draining serosanguineous fluid, dressing right lower chest in place CVS: S1, S2, RRR GI: Abdomen soft non tender bowel sounds audible Extremities no edema Neuro: Nonfocal Extremities: No edema Psych: Appropriate affect Objective Data Active Medications Acetaminophen (Acetaminophen 325 Mg Tablet) 650 mg PO Q6H PRN PRN Reason: Fever Last Admin: 12/13/23 16:01 Dose: 650 mg Documented By: KAN Albuterol Sulfate (Albuterol Sulfate 90 Mcg 8 Gm Inhaler) 2 puff INHALE RQ8H [facility] Last Admin: 12/14/23 07:42 Dose: 2 puff Documented By: GIOVANNI Bicalutamide (Bicalutamide 50 Mg Tablet) 50 mg PO DAILY [facility] Last Admin: 12/13/23 11:14 Dose: 50 mg Documented By: KAN Calcium Carbonate (Calcium Carbonate 750 Mg Tab.Chew) 750 mg PO Q4H PRN PRN Reason: Heartburn Last Admin: 12/11/23 17:42 Dose: 750 mg Documented By: JEAN-CLAUDE Ceftriaxone Sodium (Ceftriaxone Sodium 1 Gm Vial) 1 gm IVPUSH Q24H [facility] Last Admin: 12/13/23 11:13 Dose: 1 gm Documented By: KAN Docusate Sodium (Docusate Sodium 100 Mg Capsule) 100 mg PO BID [facility] Last Admin: 12/14/23 08:04 Dose: 100 mg Documented By: REGINALD Fluticasone/Vilanterol (Fluticasone/Vilanterol 100/25 Blst.W.Dev) 1 puff INHALE RDAILY [facility] Last Admin: 12/14/23 07:49 Dose: 1 puff Documented By: GIOVANNI Guaifenesin/Codeine Phosphate (Guaifen/Codeine Sf 200/20/10ml 10 Ml Liquid) 5 ml PO Q6H PRN PRN Reason: Cough Last Admin: 12/12/23 11:32 Dose: 5 ml Documented By: MICHAEL Hydromorphone HCl (Hydromorphone Hcl 0.5 Mg/0.5 Ml Syringe) 0.5 mg IVPUSH Q3H PRN; Protocol PRN Reason: Pain, Severe (Pain Scale 7-10) Last Admin: 12/14/23 10:34 Dose: 0.5 mg Documented By: REGINALD Magnesium Hydroxide (Milk Of Magnesia 30 Ml Oral.Susp) 30 ml PO DAILY PRN PRN Reason: Constipation Last Admin: 12/14/23 08:04 Dose: 30 ml Documented By: REGINALD Melatonin (Melatonin 3 Mg Tablet) 6 mg PO BEDTIME PRN PRN Reason: Insomnia Last Admin: 12/12/23 21:23 Dose: 6 mg Documented By: DA Pat Own Med ( Abiraterone 250 Mg Tablet) 1,000 mg PO DAILY@0700 [facility] Last Admin: 12/14/23 07:04 Dose: 1,000 mg Documented By: FABIENNE Omeprazole (Omeprazole 20 Mg Capsule.) 20 mg PO DAILY PRN PRN Reason: Acid Reflux Last Admin: 12/12/23 08:50 Dose: 20 mg Documented By: MICHAEL Ondansetron HCl (Ondansetron Hcl 4 Mg/2 Ml Vial) 4 mg IVPUSH Q6H PRN PRN Reason: Nausea and Vomiting Last Admin: 12/12/23 16:21 Dose: 4 mg Documented By: MICHAEL Oxycodone HCl (Oxycodone Hcl Immed Release 5 Mg Tablet) 10 mg PO Q6H PRN PRN Reason: Pain, Moderate(Pain Scale 4-6) Last Admin: 12/14/23 06:07 Dose: 10 mg Documented By: FABIENNE Polyethylene Glycol (Polyethylene Glycol 3350 17 Gm Powd.Pack) 17 gm PO DAILY [facility] Last Admin: 12/14/23 08:04 Dose: 17 gm Documented By: REGINALD Senna (Sennosides 8.6 Mg Tablet) 17.2 mg PO BEDTIME PRN PRN Reason: Constipation Sodium Chloride (0.9 % Sodium Chloride Flush 3 Ml Syringe) 3 ml IVFLUSH QSHIFT [facility] Last Admin: 12/14/23 07:36 Dose: Not Given Documented By: REGINALD Non-Admin Reason: Previously Administered Trazodone HCl (Trazodone Hcl 50 Mg Tablet) 50 mg PO BEDTIME PRN PRN Reason: Insomnia Last Admin: 12/13/23 19:57 Dose: 50 mg Documented By: FABIENNE Labs 12/13/23 06:30 12/11/23 06:57 Assessment and Plan (1) Status post lobectomy of lung: Status: Acute Plan 68-year-old male with a PMH significant for COPD, left hip prosthetic joint infection, non-small cell lung carcinoma, and prostate cancer w/likely mets to bone currently on hormone therapy who was admitted to the hospital under thoracic surgery services for left lower lobe lobectomy. POD0. Hospitalist consult for medical management. Non-small cell carcinoma of the lung S/P left lower lobe lobectomy, POD 4 No worsening Pain at site of incision, continue oxycodone 10 mg q.6 hours, continue Dilaudid as neededl Encourage Incentive spiromentry, ambulation Plan as per thoracic surgery No bowel movement, continue stool softeners follow clinical course Nausea/vomiting Resolved was likely due to by mouth antibiotics Leukocytosis likely reactive, no fevers, no shortness of breath or worsening cough, no urinary symptoms, follow CBC, on IV ceftriaxone for chronic right hip infection will cover uri infection. COPD Not in acute exacerbation, resume home inhalers, no hypoxia Anemia H&H dropped to 8.5/27.2 lower than baseline, likely due to recent surgery, hematocrit above transfusion threshold Follow H&H, hold transfusion patient asymptomatic History of prostate CA with bone Mets resume home medications outpatient follow-up with Urology Thank you for allowing us to participate in the care of this patient. Will continue to follow along with you. Quality Stroke Does the patient have a stroke diagnosis?: No VTE Prior VTE?: No VTE Risk Level:: Surgical - low VTE Device Contraindication: N/A - Device Ordered VTE Drug Contraindication: Treatment Not Indicated
[2023-12-14] MEDS: cefTRIAXone sodium 1 GM VIAL IVPUSH (11:19)
--- NOTE | 2023-12-14 11:49 | PC.NURSE ---
Addendum entered by Rancho Mahan RN 12/14/23 16:43: informed md pt hasnt had bm in 4 days and prn meds having no effect. lactulose will be administered and if not effect, fleet enema per md order Original Note: informed Dr Hayes at bedside pt ches tube has air leak at 1 w/ crepitus at insertion site. per MD, d/c suction from chest tube and d/c tele.
[2023-12-14 13:07] LABS: Hematocrit 29.8 % (42.0-52.0); Hemoglobin 9.4 g/dl (14.0-18.0); Mean Corpuscular HGB Conc 31.5 g/dl (31.0-36.0); Mean Corpuscular Hemoglobin 25.6 pg (27.0-33.0); Mean Corpuscular Volume 81.2 fL (80.0-98.0); Mean Platelet Volume 8.4 fL (9.4-12.4); Platelet Count 483 X10*3/uL (160-400); Red Blood Count 3.67 X10*6/uL (4.60-5.80); Red Cell Distribution Width 18.1 % (11.0-16.0); White Blood Count 15.1 X10*3/uL (4.8-10.8)
[2023-12-14] MEDS: Lactulose 20 GM/30 ML SOLUTION PO (16:46)
[2023-12-14] MEDS: traZODone HCL 50 MG TABLET PO (23:36)
[2023-12-15 03:34] VITALS: BP 150/68; PULSE 109; RESP 14; TEMP 36.6; O2SAT 97
[2023-12-15] MEDS: HYDROmorphone HCl 0.5 MG/0.5 ML SYRINGE IVPUSH ×2 (03:34→08:08)
[2023-12-15] MEDS: [UNRECOGNIZED DRUG - OTHER] 1000 EACH PO (06:04)
[2023-12-15] MEDS: oxyCODONE HCl Immed Release 5 MG TABLET 10 MG PO (06:04)
[2023-12-15 07:27] VITALS: BP 128/62; PULSE 85; RESP 19; TEMP 36.4; O2SAT 95
--- NOTE | 2023-12-15 07:50 | PM.PNTS ---
Subjective Subjective Date of Service: 12/15/23 Interval history: Feels improved, less incisional pain. Able to cough up some phlegm now. Had multiple BMs yesterday. OOB and ambulating. Physical Exam Vital Signs: Vital Signs: Last Vital Signs Temp 97.6 F 12/15/23 07:27 Pulse 85 12/15/23 07:27 Resp 19 12/15/23 07:27 BP 128/62 12/15/23 07:27 Pulse Ox 95 12/15/23 07:27 O2 Del Method Room Air 12/15/23 07:27 O2 Flow Rate 5 12/10/23 12:00 BMI result Body Mass Index 30.3 Const: General: comfortable, no acute distress and alert Orientation/consciousness: patient oriented x3 Chest: Other: left thoractomy incision clean chest tube in place, scant serosanguineous drainage, small air leak on water seal Resp: Effort & Inspection: normal respiratory effort Skin: General skin exam: no rashes or lesions noted Neuro: General: patient oriented x3 and moves all extremities Procedures Date of Service Date of Service: 12/15/23 Progress Note: A&P Assessment and plan (1) Status post lobectomy of lung: Status: Acute (2) Non-small cell carcinoma of lung: Status: Acute Plan POD # 5 s/p vats converted to mini open left lower lobectomy, mediastinal lymph node sampling, pleural fluid drainage,pneumonolysis, intercostal nerve block. Doing overall well, pain improved, moving bowels, CXR no air space this am, very small air leak on exam after water seal x 24h. Chest tube therefore removed, post procedure film x1h. Repeat CBC yesterday showed stable H/H, mild increase in leukocytosis- no evidence of consolidation on morning CXR, ?upper resp infection. Overall stable. IS encouraged, mucinex. If remains status quo, plan for dc to home with VNA services later today. F/u in office in 1 week. Patient comfortable with plan. Time Spent With Patient Time: Total time managing care of this patient today ____ minutes. Quality Stroke Does the patient have a stroke diagnosis?: No VTE Prior VTE?: No VTE Risk Level:: Surgical - low VTE Device Contraindication: N/A - Device Ordered VTE Drug Contraindication: Treatment Not Indicated
[2023-12-15] MEDS: 0.9 % Sodium Chloride Flush 3 ML SYRINGE IVFLUSH (08:06)
[2023-12-15] MEDS: Bicalutamide 50 MG TABLET PO (08:07)
[2023-12-15] MEDS: Albuterol Sulfate 90 MCG 8 GM INHALER 2 PUFF INHALE (08:08)
[2023-12-15] MEDS: Fluticasone/Vilanterol 100/25 BLST.W.DEV 1 PUFF INHALE (08:08)
[2023-12-15 08:11] VITALS: PULSE 82; RESP 18; O2SAT 96
--- NOTE | 2023-12-15 10:50 | MHC.CM.PN ---
Addendum entered by Beronica Bravo RN 12/15/23 13:17: PT MEDICALLY CLEARED FOR DC, HVNA UPDATED. Original Note: IMM 12/15/23, PER SURGICAL NOTES ANTIC PT WILL DC HOME W/NEW HVNA LATER TODAY, PT AGREEABLE TO PLAN AND WILL CALL FAMILY FOR RIDE HOME.
[2023-12-15 11:01] VITALS: BP 125/59; PULSE 89; RESP 18; TEMP 36.6; O2SAT 96
--- NOTE | 2023-12-15 11:15 | W.MHC.F2F ---
Service Date Service Date: 12/15/23 Encounter Date of encounter: 12/15/23 Reasons for Services Signs and symptoms assessed: thoroactomy incision, post op pain, activity, bowel movements, chest tube output Reason for chcf: wound care and postoperative assessment and/or care Homebound: Leaving the home is medically contraindicated at this time without the asist of a device and/or another person due th the listed conditions above and below. Reason homebound: weakness related to hospital stay and unable to drive Homebound supporting statement: Mr. Raphael is s/p left thoractomy, left lower lobectomy. He will need VNA for chest tube site dressing changes every other day. Certification: Based on the above findings, I certify that this patient is confined to the home and needs intermittent chcf care, physical therapy and/or speech therapy, or continues to need occupational therapy. The patient is under my care, and I have initiated the establishment of the plan of care. The patient will be followed by a physician who will periodically review the plan of care. Time Spent With Patient Time: Total time managing care of this patient today ____ minutes.
--- NOTE | 2023-12-15 12:27 | HO.PM.IMPN ---
Subjective Subjective Date of Service: 12/15/23 Interval History: Constipation resolved has had multiple stools since last night denies abdominal pain tolerating diet no nausea, no vomiting, no fevers, no chills, denies right sided chest wall or rib pain Complaining of pain at site of incision, and shortness of breath with activity. Review of Systems All other system reviewed and are negative Physical Exam Vital Signs: Vital Signs: Last Vital Signs Temp 97.8 F 12/15/23 11:01 Pulse 89 12/15/23 11:01 Resp 18 12/15/23 11:01 BP 125/59 L 12/15/23 11:01 Pulse Ox 96 12/15/23 11:01 O2 Del Method Room Air 12/15/23 11:01 O2 Flow Rate 5 12/10/23 12:00 BMI result Body Mass Index 30.3 Const: Other: General: No acute distress No JVD Resp: Lungs no acute distress, scattered bilateral rhonchi, dressing left lower chest in place CVS: S1, S2, RRR GI: Abdomen soft non tender bowel sounds audible Extremities no edema Neuro: Non focal Extremities: No edema Psych: Appropriate affect Objective Data Active Medications Acetaminophen (Acetaminophen 325 Mg Tablet) 650 mg PO Q6H PRN PRN Reason: Fever Last Admin: 12/13/23 16:01 Dose: 650 mg Documented By: KAN Albuterol Sulfate (Albuterol Sulfate 90 Mcg 8 Gm Inhaler) 2 puff INHALE RQ8H [facility] Last Admin: 12/15/23 08:08 Dose: 2 puff Documented By: ANABELL Bicalutamide (Bicalutamide 50 Mg Tablet) 50 mg PO DAILY [facility] Last Admin: 12/15/23 08:07 Dose: 50 mg Documented By: MAI Calcium Carbonate (Calcium Carbonate 750 Mg Tab.Chew) 750 mg PO Q4H PRN PRN Reason: Heartburn Last Admin: 12/11/23 17:42 Dose: 750 mg Documented By: JEAN-CLAUDE Ceftriaxone Sodium (Ceftriaxone Sodium 1 Gm Vial) 1 gm IVPUSH Q24H [facility] Last Admin: 12/14/23 11:19 Dose: 1 gm Documented By: SOFFAXavier Docusate Sodium (Docusate Sodium 100 Mg Capsule) 100 mg PO BID [facility] Last Admin: 12/15/23 08:10 Dose: Not Given Documented By: MAI Non-Admin Reason: Patient Refused Fluticasone/Vilanterol (Fluticasone/Vilanterol 100/25 Blst.W.Dev) 1 puff INHALE RDAILY [facility] Last Admin: 12/15/23 08:08 Dose: 1 puff Documented By: ANABELL Guaifenesin/Codeine Phosphate (Guaifen/Codeine Sf 200/20/10ml 10 Ml Liquid) 5 ml PO Q6H PRN PRN Reason: Cough Last Admin: 12/12/23 11:32 Dose: 5 ml Documented By: MICHAEL Hydromorphone HCl (Hydromorphone Hcl 0.5 Mg/0.5 Ml Syringe) 0.5 mg IVPUSH Q3H PRN; Protocol PRN Reason: Pain, Severe (Pain Scale 7-10) Last Admin: 12/15/23 08:08 Dose: 0.5 mg Documented By: MAI Magnesium Hydroxide (Milk Of Magnesia 30 Ml Oral.Susp) 30 ml PO DAILY PRN PRN Reason: Constipation Last Admin: 12/14/23 08:04 Dose: 30 ml Documented By: REGINALD Melatonin (Melatonin 3 Mg Tablet) 6 mg PO BEDTIME PRN PRN Reason: Insomnia Last Admin: 12/12/23 21:23 Dose: 6 mg Documented By: DA Pat Own Med ( Abiraterone 250 Mg Tablet) 1,000 mg PO DAILY@0700 [facility] Last Admin: 12/15/23 06:04 Dose: 1,000 mg Documented By: GEOFFREY Omeprazole (Omeprazole 20 Mg Capsule.Dr) 20 mg PO DAILY PRN PRN Reason: Acid Reflux Last Admin: 12/12/23 08:50 Dose: 20 mg Documented By: MICHAEL Ondansetron HCl (Ondansetron Hcl 4 Mg/2 Ml Vial) 4 mg IVPUSH Q6H PRN PRN Reason: Nausea and Vomiting Last Admin: 12/12/23 16:21 Dose: 4 mg Documented By: MICHAEL Oxycodone HCl (Oxycodone Hcl Immed Release 5 Mg Tablet) 10 mg PO Q6H PRN PRN Reason: Pain, Moderate(Pain Scale 4-6) Last Admin: 12/15/23 06:04 Dose: 10 mg Documented By: GEOFFREY Polyethylene Glycol (Polyethylene Glycol 3350 17 Gm Powd.Pack) 17 gm PO DAILY [facility] Last Admin: 12/15/23 08:10 Dose: Not Given Documented By: MAI Non-Admin Reason: Patient Refused Senna (Sennosides 8.6 Mg Tablet) 17.2 mg PO BEDTIME PRN PRN Reason: Constipation Sodium Chloride (0.9 % Sodium Chloride Flush 3 Ml Syringe) 3 ml IVFLUSH QSHIFT [facility] Last Admin: 12/15/23 08:06 Dose: 3 ml Documented By: MAI Trazodone HCl (Trazodone Hcl 50 Mg Tablet) 50 mg PO BEDTIME PRN PRN Reason: Insomnia Last Admin: 12/14/23 23:36 Dose: 50 mg Documented By: GEOFFREY Comments: pt requested for sleep Labs 12/14/23 13:02 12/11/23 06:57 Labs: Laboratory Results - last 24 hr 12/14/23 13:02 MCV 81.2 MCH 25.6 L MCHC 31.5 RDW 18.1 H Plt Count 483 H MPV 8.4 L Absolute Nucleated RBC 0.000 Nucleated RBC % (auto) 0.0 Assessment and Plan (1) Nausea & vomiting: Status: Acute (2) Status post lobectomy of lung: Status: Acute (3) Prostate cancer metastatic to bone: Status: Acute Plan 68-year-old male with a PMH significant for COPD, left hip prosthetic joint infection, non-small cell lung carcinoma, and prostate cancer w/likely mets to bone currently on hormone therapy who was admitted to the hospital under thoracic surgery services for left lower lobe lobectomy. POD0. Hospitalist consult for medical management. Non-small cell carcinoma of the lung S/P left lower lobe lobectomy, POD 5 No worsening Pain at site of incision, continue oxycodone 10 mg q.6 hours, chest tube removed Encourage Incentive spiromentry, ambulation Constipation resolved DC plan as per thoracic surgery. Nausea/vomiting Resolved, was likely due to by mouth antibiotics Leukocytosis likely reactive, no fevers, no shortness of breath or worsening cough, no urinary symptoms, follow CBC, continue outpatient antibiotics upon discharge. COPD Not in acute exacerbation, resume home inhalers, no hypoxia. Anemia hematocrit dropped to 27.2 but bounced back to baseline 29.8 did not require blood transfusion History of prostate CA with bone Mets continue home medications and outpatient follow-up with Urology. Quality Stroke Does the patient have a stroke diagnosis?: No VTE Prior VTE?: No VTE Risk Level:: Surgical - low VTE Device Contraindication: N/A - Device Ordered VTE Drug Contraindication: Treatment Not Indicated
--- NOTE | 2023-12-15 12:41 | PM.DS ---
DS: Providers Provider Date of Service: 12/15/23 <Aissatou Villaseñor PA-C - Last Filed: 12/15/23 13:02> Date of admission: 12/10/23 08:04 <Aissatou Villaseñor PA-C - Last Filed: 12/15/23 13:02> Date of discharge: 12/15/23 <Aissatou Villaseñor PA-C - Last Filed: 12/15/23 13:02> Primary care physician: AUGUST Patterson-JANNY <Aissatou Villaseñor PA-C - Last Filed: 12/15/23 13:02> Attending physician on admission: Christiano Hayes <Aissatou Villaseñor PA-C - Last Filed: 12/15/23 13:02> Consults: 12/10/23 13:25 Consult to Hospitalist Routine Comment: Consulting Provider: Hospitalist Reason For Exam: COPD, LLL cancer, prostate cancer s/p LL lobectomy <Aissatou Villaseñor PA-C - Last Filed: 12/15/23 13:02> Attending physician on discharge: Christiano Hayes <Aissatou Villaseñor PA-C - Last Filed: 12/15/23 13:02> DS: Diagnosis Discharge Diagnosis (1) Nausea & vomiting: Status: Acute <Aissatou Villaseñor PA-C - Last Filed: 12/15/23 13:02> (2) Status post lobectomy of lung: Status: Acute <Aissatou Villaseñor PA-C - Last Filed: 12/15/23 13:02> (3) Prostate cancer metastatic to bone: Status: Acute <Aissatou Villaseñor PA-C - Last Filed: 12/15/23 13:02> DS: Summary Hospital Course Hospital Course: HPI AT ADMISSION: Patient had an episode of hemoptysis last week which has since resolved. He was transferred to [facility] in case he required interventional radiologic embolization of a bleeding vessel feeding the lung cancer of his left lower lobe. In the meantime, PFT's were obtained and were actually quite good. PET scan demonstrate localized lung left lower lobe cancer with no evidence of mediastinal adenopathy. Patient does have findings also suggestive of metastatic prostate cancer. Patient had his case presented at the multidisciplinary lung cancer screening conference and the current consensus of opinion is if his bone metastases are related to his prostate, he would be a candidate for a curative resection for his localized left lower lobe lung cancer. Bone marrow biopsy was performed and was consistent with prostate and not lung cancer. Current plan is to proceed with VATS possible open left lower lobectomy. Patient contacted and is aware. Arrangements were made for this, he now presents for the above noted procedure. HOSPITAL COURSE: On 12/10/23, vats converted to mini open left lower lobectomy, mediastinal lymph node sampling, pleural fluid drainage,pneumonolysis, intercostal nerve block was performed by Dr. Hayes without immediate complication. He received 1U PRBC intraoperatively. His H/H was followed closely and remained stable post op. The patient had an uncomplicated recovery course. Hospitalist consult was obtained for management of his medical comorbidities. He remained inpatient for 5 days post operatively. He had a small air leak on exam which improved and his chest tube was removed on POD #5. His incisional pain improved and he was comfortable. He was OOB and activity was increased. He remained hemodynamically stable. His thoracotomy incision was clean with mild surrounding crepitus. On the day of discharge, he was tolerating a solid diet without nausea or vomiting, ambulating without difficulty, had good pain control and was moving his bowels. He was stable from a respiratory standpoint. His incisions were clean. He was discharged to home on 12/15/23 in stable condition with VNA services for chest tube site dressing changes. He is to follow up in the office in 1 week. <Aissatou Villaseñor PA-C - Last Filed: 12/15/23 13:02> Status at Discharge Functional status at discharge: independent ambulation <YOLANDA Isaac Last Filed: 12/15/23 13:02> Overall status at discharge: patient is progressing back to baseline <YOLANDA Isaac Last Filed: 12/15/23 13:02> Time Attestation Discharge Coordination Time (in mins): 50 <YOLANDA Isaac Last Filed: 12/15/23 13:02> Quality: Safe Use of Opioids Does Pt have an Active Cancer Diagnosis on the Problem List?: Yes <Aissatou Villaseñor PA-C - Last Filed: 12/15/23 13:02> Opioid Measure Date for CMS Report: 11/15/23 <Aissatou Villaseñor PA-C - Last Filed: 12/15/23 13:02> 11/15/23 <Christiano Hayes MD - Last Filed: 12/15/23 13:00> Opioid Measure Time for [facility] Report: 12:57 <Aissatou Villaseñor PA-C - Last Filed: 12/15/23 13:02> 12:59 <Christiano Hayes MD - Last Filed: 12/15/23 13:00> Quality: Stroke Does the patient have a stroke diagnosis?: No <Aissatou Villaseñor PA-C - Last Filed: 12/15/23 13:02> Physical Exam Vital Signs: Vital Signs: Last Vital Signs Temp 97.8 F 12/15/23 11:01 Pulse 89 12/15/23 11:01 Resp 18 12/15/23 11:01 BP 125/59 L 12/15/23 11:01 Pulse Ox 96 12/15/23 11:01 O2 Del Method Room Air 12/15/23 11:01 O2 Flow Rate 5 12/10/23 12:00 BMI result Body Mass Index 30.3 <Aissatou Villaseñor PA-C - Last Filed: 12/15/23 13:02> Const: General: comfortable, no acute distress and alert <Aissatou Villaseñor PA-C - Last Filed: 12/15/23 13:02> Orientation/consciousness: patient oriented x3 <Aissatou Villaseñor PA-C - Last Filed: 12/15/23 13:02> Chest: Other: left thoractomy incision clean chest tube site dressing intact, mild surrounding crepitus <Aissatou Villaseñor PA-C - Last Filed: 12/15/23 13:02> Resp: Effort & Inspection: normal respiratory effort, Actively coughing, no respiratory distress and no use of accessory muscles <YOLANDA Isaac Last Filed: 12/15/23 13:02> Skin: General skin exam: no rashes or lesions noted <Aissatou Villaseñor PA-C - Last Filed: 12/15/23 13:02> Neuro: General: patient oriented x3 and moves all extremities <Aissatou Villaseñor PA-C - Last Filed: 12/15/23 13:02> DS: Data Data Completed and Pending Completed studies during hospitalization [Text1]: 12/10/23 08:44 Cytology [PTH] Stat Pleural fluid, left, thoracentesis: No malignancy identified. See comment. Comment: Moderately cellular specimen consisting mostly of chronic inflammatory cells and blood; scattered reactive appearing mesothelial cells are also present. The cell block has similar findings <Aissatou Villaseñor PA-C - Last Filed: 12/15/23 13:02> Pending studies at discharge: Pending at discharge 12/10/23 10:35 Surgical [PTH] Stat <Aissatou Villaseñor PA-C - Last Filed: 12/15/23 13:02> Labs on day of discharge: Laboratory Results - last 24 hr 12/14/23 13:02 WBC 15.1 H RBC 3.67 L Hgb 9.4 L Hct 29.8 L MCV 81.2 MCH 25.6 L MCHC 31.5 RDW 18.1 H Plt Count 483 H MPV 8.4 L Absolute Nucleated RBC 0.000 Nucleated RBC % (auto) 0.0 <Aissatou Villaseñor PA-C - Last Filed: 12/15/23 13:02> Discharge Plan Discharge Anticipated Discharge Date/Time: 12/15/23 08:54 <Aissatou Villaseñor PA-C - Last Filed: 12/15/23 13:02> Patient Disposition: Home Health Service <Aissatou Villaseñor PA-C - Last Filed: 12/15/23 13:02> Discharge Diagnosis: Left lower lobe lung cancer <Aissatou Villaseñor PA-C - Last Filed: 12/15/23 13:02> Left lower lobe lung cancer <Christiano Hayes MD - Last Filed: 12/15/23 13:00> Referrals: [facility] [Outside] - 1 Day (A NURSE WILL CONTACT YOU TO ARRANGE FIRST VISIT. ) Nikita Martinez, AUGUST-BC [Primary Care Provider] - 1 Week Christiano Hayes MD [Physician] - 1 Week <Aissatou Villaseñor PA-C - Last Filed: 12/15/23 13:02> Discharge Medications: New oxycodone 5 mg tablet 5 mg PO Q8H PRN (Reason: pain) Qty: 30 0RF Rx Instructions: Partial Fill upon patient request. docusate sodium [Colace] 100 mg capsule 100 mg PO BID Qty: 30 0RF Continued albuterol sulfate [ProAir HFA] 90 mcg/actuation HFA aerosol inhaler 2 puff inhalation Q8H PRN (Reason: shortness of breath or wheezing) 30 Days Qty: 8.5 4RF oxycodone 5 mg Tablet 5 mg PO Q8H PRN (Reason: Breakthrough Pain, Severe) Qty: 30 0RF Rx Instructions: Partial Fill upon patient request. cephalexin 500 mg capsule 500 mg PO BID esomeprazole magnesium [Nexium 24HR] 20 mg Capsule,Delayed Release(Dr/Ec) 20 mg PO DAILY@0630 bicalutamide 50 mg tablet 50 mg PO DAILY fluticasone propion-salmeterol [Advair HFA] 115-21 mcg/actuation HFA aerosol inhaler 2 puff inhalation BID abiraterone 250 mg tablet 1,000 mg PO DAILY 30 Days Qty: 120 5RF Rx Instructions: must be taken on empty stomach, at least 1 hr before or 2 hrs after a meal/food <Aissatou Villaseñor PA-C - Last Filed: 12/15/23 13:02> Discharge Orders: Discharge Order (Routine); Ordered 12/15/23 Ordered By: Aissatou Villaseñor <Aissatou Villaseñor PA-C - Last Filed: 12/15/23 13:02> Diet: Advance to usual diet <Aissatou Villaseñor PA-C - Last Filed: 12/15/23 13:02> Advance to usual diet <Christiano Hayes MD - Last Filed: 12/15/23 13:00> Activity on Discharge: No heavy lifting <Aissatou Villaseñor PA-C - Last Filed: 12/15/23 13:02> No heavy lifting <Christiano Hayes MD - Last Filed: 12/15/23 13:00> Stand Alone Forms: Patient Portal Discharge page <YOLANDA Isaac Last Filed: 12/15/23 13:02> Print Language: Sammarinese <Aissatou Villaseñor PA-C - Last Filed: 12/15/23 13:02> Activity Restrictions/Additional Instructions: Apply an ice pack for short intervals (20 minutes on, followed by at least 20 minutes off) for the first 2 days. Do not apply heat. Do not use creams, lotions, or topical antibiotics. These can cause infection or allergic reaction. Ok to shower. You have steri strips (small white cloth strips) covering your incision- these will fall off ~1 week. Chest tube site dressing change every other day and as needed with xeroform, 4x4 and tape. Follow up in office with Dr. Hayes in 1 week. ([phone]) No heavy lifting (>10lbs) or strenuous activity! Call Your Doctor If: -Your temperature exceeds 101.5? F -You experience excessive pain or swelling -You have an unexpected reaction to medication -You have excessive bleeding -You experience continued vomiting/nausea -Your incision begins to separate -Your incision shows signs of infection such as increased redness, swelling, excessive pain, drainage (light blood or clear fluid is normal) or heat <Aissatou Villaseñor PA-C - Last Filed: 12/15/23 13:02> Care Plan Goals: Convalescence from surgery <YOLANDA Isaac Last Filed: 12/15/23 13:02> Health Concerns: No new issues <YOLANDA Isaac Last Filed: 12/15/23 13:02> Plan of Treatment: Return to baseline F/u in office in 1 week VNA services <YOLANDA Isaac Last Filed: 12/15/23 13:02> Assessment: Stable <YOLANDA Isaac Last Filed: 12/15/23 13:02>
== END 2023-12-15 13:44 | disposition home health service (06) | DRG 164 ==
LOC: HO.SSSA 08:05 → HO.IMC 12:27
PROVIDERS: Hospitalist; Nurse Practitioner; Physician Assistant Surgical; Admitting Provider Surgery; PCP Nurse Practitioner Family; Visit Provider Surgery
PROC: 0BTJ0ZZ Resection of Left Lower Lung Lobe, Open Approach (ICD-10-PCS; principal; 2023-12-10 07:30)
DX: C34.32 Malignant neoplasm of lower lobe, left bronchus or lung (principal); C79.51 Secondary malignant neoplasm of bone; F11.20 Opioid dependence, uncomplicated; J44.9 Chronic obstructive pulmonary disease, unspecified; C61 Malignant neoplasm of prostate; D63.0 Anemia in neoplastic disease; J98.4 Other disorders of lung; Z20.822 Contact with and (suspected) exposure to COVID-19; Z87.891 Personal history of nicotine dependence; Z79.899 Other long term (current) drug therapy
CPT/HCPCS: 0241U; 36415; 71045; 80048; 80053; 85025; 85027; 86850; 86900; 86901; 86923; 88112; 88161; 88172; 88305; 88309; 88329; 88341; 88342; 93005; 94640; A4649; A7041; C9290; J0131; J0696; J0736; J1100; J1171; J2003; J2250; J2371; J2405; J2704; J2795; J3010; J7120; P9016

== ENCOUNTER → 2023-12-10 08:04 | Outpatient (BNV) | payer MEDICARE, SELFPAY | PROVIDERS: Admitting Provider Surgery; PCP Nurse Practitioner Family; Visit Provider Student in an Organized Health Care Education/Training Program | DX: R11.2 Nausea with vomiting, unspecified (principal); Z90.2 Acquired absence of lung [part of]; C61 Malignant neoplasm of prostate; C79.51 Secondary malignant neoplasm of bone | CPT/HCPCS: 99222; 99232 ==

== ENCOUNTER → 2023-12-10 08:04 | Outpatient (BNV) | payer MEDICARE, SELFPAY | PROVIDERS: Admitting Provider Surgery; PCP Nurse Practitioner Family; Visit Provider Surgery | DX: R11.2 Nausea with vomiting, unspecified (principal); Z90.2 Acquired absence of lung [part of]; C61 Malignant neoplasm of prostate; C79.51 Secondary malignant neoplasm of bone; C34.90 Malignant neoplasm of unspecified part of unspecified bronchus or lung | CPT/HCPCS: 32480; 99024; 99499; G0180 ==

== ENCOUNTER 2023-12-28 10:54 | Outpatient (AMB) | payer MEDICARE, SELFPAY ==
--- NOTE | 2023-12-28 11:17 | MHC.OFFVIS ---
Intake Visit Reasons: s/p VATS poss open (L) lower lobectomy Intake Note: Patient here s/p VATS, Lt lower lobectomy. Chest tube removed on 12-15-2023. Reports incision healing well. Patient c/o: pain. Tramadol does not help. SX: 12-10-2023. Medicaid Biller Required: No Accompanied by: son Noe Allergies Penicillins Allergy (Intermediate, Verified 12/28/23 11:18) Vomiting Bees Allergy (Severe, Uncoded 12/28/23 11:18) anaphylaxis HPI Comments Details: Patient presents for follow up with the son. Aside from incisional discomfort which is gradually improving patient otherwise is doing well. He has acute respiratory symptoms. He has a marginal appetite and thinks this was related to his medicines which he takes for his metastatic prostate cancer. Pathology was reviewed including lymph node status [facility] Medical History (Updated 12/17/23 @ 00:02 by Yossi Schultz) Back pain Constipation Vomiting GERD (gastroesophageal reflux disease) History of prostate cancer Hemoptysis Carcinoma, lung Personal history of nicotine dependence Asthma with chronic obstructive pulmonary disease (COPD) COPD (chronic obstructive pulmonary disease) Obesity (BMI 30.0-34.9) History of COVID-19 Left hip prosthetic joint infection Opioid dependence Shoulder pain Osteoarthritis Right leg swelling Arthritis, hip Surgical History (Updated 12/28/23 @ 12:05 by Christiano Hayes MD) History of lobectomy of lung (12/10/23) Non-small cell cancer of left lung History of bronchoscopy History of total right hip replacement History of total left hip replacement History of lumbar surgery Family History Father Colon cancer Mother Cancer Social History Household Members: Children Household Members Other:: , lives with and 10 yo daughter Housing: House Are you a primary primary care provider to a significant other at home: No Do you presently have visiting nurse or other home services: No Alcohol intake: never Patient Tobacco Use Status: Former Tobacco user Cigarette Packs Per Day: 1 Years Smoked: onset 16yo, 1ppd x 40yrs, 40pyh e-Cigarette/Vaping Use: Never Used Second Hand Smoke Exposure: No service: No Current 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 Few scattered wheezes. Incisions clean dry and intact healing very well Assessment & Plan Assessment & Plan (1) Status post thoracotomy: Code(s): Z98.890 - Other specified postprocedural states Category: Surgical (2) Non-small cell carcinoma of lung: Code(s): C34.90 - Malignant neoplasm of unspecified part of unspecified bronchus or lung Category: Surgical Plan Patient and son have been encouraged to supplement patient's diet with nutritional supplements including ensure, cystic, or boost. He should gradually increase his activity level. Patient will also have arrangement made for follow-up with his oncologist Dr. Millan. He should also contact his urologist regarding his meds for his prostate cancer. In the meantime, patient will see me as directed or p.r.n.. All questions answered. Coding Level of Care Code Global (09038) Diagnoses Status post thoracotomy Z98.890 Non-small cell carcinoma of lung C34.90
== END 2023-12-28 11:43 | disposition home or self-care (01) ==
PROVIDERS: PCP Nurse Practitioner Family; Visit Provider Surgery
DX: Z98.890 Other specified postprocedural states (principal); C34.90 Malignant neoplasm of unspecified part of unspecified bronchus or lung
CPT/HCPCS: 99024

== ENCOUNTER → 2023-12-28 10:54 | Outpatient (BNVA) | payer MEDICARE, SELFPAY | PROVIDERS: PCP Nurse Practitioner Family; Visit Provider Surgery | DX: C34.90 Malignant neoplasm of unspecified part of unspecified bronchus or lung (principal); Z98.890 Other specified postprocedural states | CPT/HCPCS: 99212 ==

== ENCOUNTER 2024-01-21 03:05 | Inpatient (IN) | payer MEDICARE, SELFPAY ==
[2024-01-21] VITALS (33 sets, daily range): BP systolic 95–142; BP diastolic 46–72; PULSE 70–129; RESP 12–30; TEMP 36–36.9; O2SAT 80–98; BMI 28.9
--- NOTE | 2024-01-21 | ECG_ITS ---
Test Reason : SOB Blood Pressure : / mmHG Vent. Rate : 127 BPM Atrial Rate : 127 BPM P-R Int : 112 ms QRS Dur : 088 ms QT Int : 400 ms P-R-T Axes : 053 007 086 degrees QTc Int : 581 ms Sinus tachycardia Nonspecific ST and T wave abnormality Abnormal ECG When compared with ECG of 01-DEC-2023 14:23, No significant change was found Referred By: Generic ED Physician Electronically Signed By:Gasper Montes De Oca
--- NOTE | 2024-01-21 | ECG_ITS ---
Test Reason : ARRYTHMIA Blood Pressure : / mmHG Vent. Rate : 086 BPM Atrial Rate : 086 BPM P-R Int : 148 ms QRS Dur : 090 ms QT Int : 444 ms P-R-T Axes : -13 042 -07 degrees QTc Int : 531 ms Normal sinus rhythm Nonspecific ST abnormality Prolonged QT Abnormal ECG When compared with ECG of 21-JAN-2024 04:28, Premature ventricular complexes are no longer Present Nonspecific T wave abnormality now evident in Inferior leads Referred By: Rosa Maria Balderas Electronically Signed By:Gasper Montes De Oca
--- NOTE | 2024-01-21 | ECG_ITS ---
Test Reason : RHYTH CHANGE Blood Pressure : / mmHG Vent. Rate : 110 BPM Atrial Rate : 110 BPM P-R Int : 132 ms QRS Dur : 090 ms QT Int : 370 ms P-R-T Axes : 084 013 077 degrees QTc Int : 500 ms Sinus tachycardia with occasional Premature ventricular complexes Nonspecific ST and T wave abnormality Abnormal ECG When compared with ECG of 21-JAN-2024 03:16, Premature ventricular complexes are now Present Referred By: Rosa Maria Balderas Electronically Signed By:Gasper Montes De Oca
--- NOTE | ~2024-01-21 | US_ITS ---
CLINICAL HISTORY: Acalculous cholecystitis PROCEDURES: 1. Limited preprocedure ultrasound of the abdomen. Permanent images saved in PACS. 2. Ultrasound-guided cholecystostomy tube. 3. Limited post procedure ultrasound of the abdomen. Permanent images saved in PACS. CLINICIANS: Ignacio Boswell PA-C Preprocedural imaging reviewed with Dr. Victoria MEDICATIONS: -Lidocaine 1% 10 mL SQ -Antibiotics: None -For additional details, please see nursing flowsheet. COMPLICATIONS: None ESTIMATED BLOOD LOSS: < 5 ml CONTRAST: None SPECIMENS: A specimen was sent for culture. PROCEDURE NOTE: The procedure, risks, benefits, and alternatives were carefully explained to the patient's spouse and informed consent was obtained. The patient was placed supine on the ICU bed. A timeout was performed. A limited ultrasound of the abdomen was performed to localize the gallbladder and choose appropriate needle entry and trajectory. The patient was prepped and draped in usual sterile fashion. The skin and subcutaneous tissues were anesthetized with lidocaine. Under US guidance, a 5 [place] Yueh needle was advanced into the gallbladder via transhepatic approach. Dark thick bile was immediately aspirated. A 0.0035 J wire was inserted through the the trocar needle and coiled in the bladder. The trocar needle was then removed over the wire. The tract was then dilated. Over the wire, an 8 fr all-purpose drainage catheter was advanced and coiled into the gallbladder. The wire was then removed. A total of 20 ml of dark thick bile was removed and sent for culture. The catheter was secured to the skin with a 2-0 nylon suture. A LINUS bulb was then attached to the drainage catheter. A limited postprocedure ultrasound was then obtained. There were no immediate complications. US/US drain visceral Impression: Ultrasound-guided cholecystostomy tube. This procedure was performed by Ignacio Boswell PA-C and supervised by Dr. Victoria. Electronically signed by: Manish Victoria MD 02/04/2024 02:51 PM [facility] [place]
--- NOTE | ~2024-01-21 | XR_ITS ---
EXAMINATION: XR CHEST CLINICAL INFORMATION: OGT placement COMPARISON: X-ray dated January 31, 2024. TECHNIQUE: Frontal view of the chest was obtained. FINDINGS: The OG tube tip is not fully included and likely below the left hemidiaphragm in the stomach gas bubble. Persistent opacity with shifted cardiomediastinal silhouette to the left hemithorax. Round masslike opacity in the right lower hemithorax. The endotracheal tube and right-sided central venous line remain in unchanged position. XR/XR chest 1V IMPRESSION: OG tube in the stomach region. No other change Electronically signed by: Pernell Dominique MD 02/02/2024 07:07 AM [facility]
--- NOTE | ~2024-01-21 | XR_ITS ---
EXAMINATION: XR CHEST CLINICAL INFORMATION: sob COMPARISON: X-ray dated December 15, 2023. TECHNIQUE: Frontal view of the chest was obtained. FINDINGS: Bilateral multifocal different sizes masslike opacities in the periphery of the hemithorax is more conspicuous on the right. There is a confluent opacity in the left lower hemithorax or left in the cardiomediastinal silhouette. The heart silhouette is toward the left hemithorax. Bilateral pleural effusions, moderate to large volume. No pneumothorax. Calcified plaque thoracic aorta. Callus formation versus bone lesion in the ribs right lower hemithorax. Degenerative changes in the shoulders. Multilevel thoracic spondylosis. XR/XR chest 1V IMPRESSION: Concerning metastatic disease, mediastinal and pleura and likely osseous. Electronically signed by: Pernell Dominique MD 01/21/2024 08:16 AM [facility]
--- NOTE | ~2024-01-21 | CT_ITS ---
EXAMINATION: CT ANGIOGRAM CHEST CLINICAL INFORMATION: Prostate and lung cancer with the bone metastasis according to PET/CT. Acute hypoxia. COVID test positive. COMPARISON: CT imaging chest dated October 16, 2023. TECHNIQUE: Multiple axial images were obtained through the chest after the administration of 65 mL of Omnipaque 350 intravenous contrast. Extensive vascular post-processing including two-dimensional and three-dimensional reformatted images were created and reviewed on an independent workstation. Maximum intensity projections, coronal and sagittal oblique. This CT examination was performed using dose optimization techniques as appropriate, variously including the following: *Automated exposure control *Adjustment of mA and/or kV according to patient size (this includes techniques or standardized protocols for targeted exams where dose is matched to indication/reason for exam; i.e. extremities or head) *Use of iterative reconstruction technique DLP: 425 mGy-cm FINDINGS: No gross intraluminal filling defects within the main pulmonary artery or its main subsegmental pulmonary branches. No aneurysm or dissection, thoracic aorta. Multifocal, round and lobulated, different sizes low density lesions throughout the parietal and visceral pleura both hemithoraces more conspicuous on the right side. Multifocal, round and lobulated, different sizes low density lesions in the visceral pleura towards the mediastinum. There is a large, 8 cm heterogeneously enhancing low density mass in the lateral right lower hemithorax extending both intrathoracic and extrathoracic/intrapolar and extra pleura resulting in bone destruction of the right eighth rib. Multiple low density/lytic lesions throughout the axial skeleton resulting in bone destruction of T1, posterior spinous processes of T4 and inferior aspect of the posterior spinous processes of T3. Multiple different sizes low density lesions in the prevertebral compartment of the axial skeleton, the most conspicuous at T1 and T4 with questionable extension into the central spinal canal. Lymphadenopathy, bilateral pulmonary hilum more conspicuous on the right side. Multifocal patchy and confluent pulmonary groundglass with peribronchial septal thickening. Centrilobular and paraseptal emphysematous changes. No pneumothorax. Bilateral, small to moderate volume, pleural effusions, probably loculated on the right hemithorax. Secretions layering within the left and right mainstem bronchus into the small bronchi is to the lower lungs resulting in narrowed lumen and absence lumen and the bronchi dose to the left lower lobe. Calcified plaques in the coronary arteries and thoracic aorta as well as its main branches. Pericardial thickening/effusion, small volume. Probable low density lesion in the anterior parenchyma of the spleen. . CT/CT angio chest PE protocol IMPRESSION: No acute pulmonary artery emboli. Metastatic disease, mediastinum, intrathoracic/pleura and osseous with the likely pathologic fractures of T1 and T4 and questionable extension into the central spinal canal. Fleischner guidelines were followed. Electronically signed by: Pernell Dominique MD 01/21/2024 08:36 AM [facility]
--- NOTE | ~2024-01-21 | XR_ITS ---
EXAMINATION: XR CHEST CLINICAL INFORMATION: Confirm central line, and ET tube. COMPARISON: Chest radiograph done earlier the same day. TECHNIQUE: Frontal view of the chest was obtained. FINDINGS: Endotracheal tube with its tip approximately 5.1 cm proximal to the rolly. Right-sided central venous catheter with the tip in the region of the cavoatrial junction. Large left-sided pleural effusion with adjacent atelectasis, increased when compared to the prior examination with near complete opacification of the left lung. Right basilar chest tube in unchanged position. Loculated right-sided pleural effusion along the lateral aspect of the right lung base, unchanged. Patchy right basilar airspace opacities are redemonstrated. No pneumothorax. XR/XR chest 1V IMPRESSION: 1. Endotracheal tube with its tip approximately 5.1 similar proximal to the rolly. Right-sided central venous catheter in unchanged position. 2. Large left-sided pleural effusion with adjacent atelectasis, increased when compared to the prior examination. Right basilar chest tube in unchanged position. Loculated right-sided pleural effusion and patchy right basilar airspace opacities, unchanged. No pneumothorax. 3. Endotracheal tube in unchanged position. Electronically signed by: Mynor Morales MD 01/31/2024 10:13 PM [facility]
--- NOTE | ~2024-01-21 | XR_ITS ---
EXAMINATION: XR CHEST 1 VIEW CLINICAL INFORMATION: shortness of breath COMPARISON: January 26, 2024 TECHNIQUE: Single portable frontal view. Suboptimal exam oblique technique. Tubes and lines: Right chest tube remain in place. No pneumothorax. Lungs and pleura: Increase in large area of opacification left lung now involving almost the entire left lung except for the left lung apex. Also increased right lung opacification over the middle/lower lobe. Heart and mediastinum: Widened mediastinum exaggerated by AP technique and portable projection.. Bones/soft tissue: Skeletal structures included are normal for patient's age. XR/XR chest 1V IMPRESSION: 1. Right chest tube remain in place. No pneumothorax. 2. Interval worsening of large area of opacification left lung now involving almost the entire left lung except for the left lung apex. 3. Increased opacification over the right lung base. Electronically signed by: Chester Razo MD 01/31/2024 01:31 PM [facility]
--- NOTE | ~2024-01-21 | XR_ITS ---
EXAMINATION: XR CHEST CLINICAL INFORMATION: Shortness of breath COMPARISON: Chest x-ray January 25, 2024. CT chest January 21, 2024 TECHNIQUE: Frontal view of the chest was obtained. FINDINGS: Right chest tube at the right lung base. Blunting of the right costophrenic angle due to pleural fluid. Rounded density along the right lateral lower hemithorax consistent with loculated fluid collection measuring 4.5 cm in diameter. There is no pneumothorax. Volume of the fluid in the right hemithorax has diminished since January 23, 2024. There is improved aeration of both lungs since chest x-ray January 25, 2024. Dense left lung base due to pleural fluid and airspace opacities. This is similar to chest x-ray January 23, 2024. No pulmonary vascular congestion. Status post extubation. NG tube has been removed. XR/XR chest 1V IMPRESSION: 1. Right chest tube at the right lung base. No pneumothorax. 2. Loculated fluid collection right lung base. 3. Improved aeration of both lungs since chest x-ray January 25, 2024. 4. Dense left lung base due to pleural fluid and airspace opacities. Electronically signed by: Isael Carrington MD 01/26/2024 04:03 PM [facility]
--- NOTE | ~2024-01-21 | XR_ITS ---
EXAMINATION: XR CHEST CLINICAL INFORMATION: Confirm chest tube placement. COMPARISON: 01/23/2024. TECHNIQUE: Frontal view of the chest was obtained. FINDINGS: Endotracheal tube tip approximately 4 cm above the rolly. Esophagogastric tube redemonstrated with tip projecting below the field of view, but at least into the right upper quadrant with more proximal portion overlying the gastric antrum. Chest tube is located in the region of the right costophrenic angle. Decreased right pleural effusion. Redemonstration of multifocal airspace opacities bilaterally, right greater than left. Cardiomediastinal silhouette partially obscured by bibasilar opacities. Redemonstration of old healed rib fractures. XR/XR chest 1V IMPRESSION: 1. Endotracheal tube tip approximately 4 cm above the rolly. 2. Chest tube is located in the region of the right costophrenic angle. Decreased right pleural effusion. 3. Redemonstration of multifocal airspace opacities bilaterally, right greater than left. This study was presented today January 25, 2024 for interpretation. Stat results provided at this time as requested by referring provider. Electronically signed by: Elizabeth Mclean MD 01/25/2024 01:40 PM [facility]
--- NOTE | ~2024-01-21 | US_ITS ---
EXAMINATION: US ABDOMEN LIMITED CLINICAL INFORMATION: Transaminitis and fever. COMPARISON: None available. TECHNIQUE: Real-time imaging of the right upper quadrant abdominal viscera. FINDINGS: PANCREAS: Not visualized due to overlying bowel gas shadowing LIVER: The liver is normal in size. The liver contour is normal. Parenchymal echogenicity is normal. No focal hepatic lesion. There is no intrahepatic biliary duct dilatation seen. GALLBLADDER: Gallbladder is filled with echogenic stones and sludge. There is gallbladder wall thickening measuring 7 mm. Mild pericholecystic fluid COMMON BILE DUCT: Not well-visualized but possibly measuring 0.3 cm in diameter. RIGHT KIDNEY: No hydronephrosis. No renal calculi or focal parenchymal lesions. The kidney measures 10.5 cm in maximum dimension. FREE FLUID: None. Small right pleural effusion US/US abdomen limited IMPRESSION: 1. Cholelithiasis with gallbladder wall thickening and pericholecystic fluid. Findings are concerning for acute cholecystitis. 2. Liver is normal in appearance. 3. Small right pleural effusion. Electronically signed by: Jorge L Ibarra MD 01/28/2024 01:16 PM EST
--- NOTE | ~2024-01-21 | CT_ITS ---
EXAMINATION: CT CHEST WITHOUT CONTRAST CLINICAL INFORMATION: Pleural effusion. COMPARISON: January 21, 2024. TECHNIQUE: Multidetector volumetric CT imaging of the chest was done. Axial MIP volume rendering provided. Sagittal and coronal reformatted images were obtained. This CT examination was performed using dose optimization techniques as appropriate, variously including the following: *Automated exposure control *Adjustment of mA and/or kV according to patient size (this includes techniques or standardized protocols for targeted exams where dose is matched to indication/reason for exam; i.e. extremities or head) *Use of iterative reconstruction technique DLP: 634 mGy-cm FINDINGS: DISTRICT DIRECTOR: There is complete opacification of the left lung. There appear to be infiltrates throughout the right lung. LUNGS: There is an endotracheal tube seen in adequate position above the rolly. An apparent temperature probe extends into the right mainstem bronchus and partially into the right middle lobe bronchus. There is opacification of the left lower lobe bronchus. There is essentially complete opacification/consolidation of the left lung with a peripheral small pleural effusion. There is consolidation right lower lobe and right upper lobe with air bronchogram formation consistent with infiltrates. There is minimal infiltrative change right middle lobe. There is a 9 cm right lower lung field mass with a component extending through the ribs extending to the chest wall. MEDIASTINUM: The heart is normal in size. There is no pericardial effusion. Small nonspecific mediastinal lymph nodes are noted. A gastric extends into the stomach CORONARY ARTERY CALCIFICATION: Moderate. PLEURA: There is a small loculated pleural effusion at the right lung base. There is a small left pleural effusion along the peripheral of extensive consolidation throughout the left lung. Chest tubes lies along the right lateral lower lung field. AXILLA: No lymphadenopathy. UPPER ABDOMEN: Unremarkable. OSSEOUS STRUCTURES: There is lytic change of the posterior lateral right eighth rib. Multiple bilateral rib fractures are noted most of which appear to be old. There is a posterior lateral left sixth rib fracture may be acute/subacute. CT/CT chest wo IV con IMPRESSION: 1. Essentially complete opacification/consolidation of the left lung with a small peripheral pleural effusion. There is complete opacification of the left lower lobe bronchus. There is consolidation throughout the right upper lobe and right lower lobe with air bronchogram formation consistent with infiltrates /pneumonia. There is a 9 cm right lower lung field mass with component extending through the ribs to the chest wall. Chest tube in adequate position. Small loculated right pleural effusion. 2. Multiple bilateral rib fractures. There is a posterior lateral left sixth rib fracture that may be acute/subacute. 3. Endotracheal tube and gastric tube in adequate position. 4. Coronary artery calcification. 5. Small nonspecific mediastinal lymph nodes. 6. Small amount of fluid in the left pleural space. 7. There is an endotracheal tube in adequate position above the rolly. An apparent temperature probe extends into the right mainstem bronchus and partially into the right middle lobe bronchus. 8. There is lytic change of the posterior lateral right eighth rib. Fleischner guidelines were followed. Electronically signed by: Bravo Tijerina MD 02/05/2024 12:58 AM [facility]
--- NOTE | ~2024-01-21 | XR_ITS ---
EXAMINATION: XR CHEST CLINICAL INFORMATION: s/p HD Cath COMPARISON: X-ray dated February 02, 2024. TECHNIQUE: Frontal view of the chest was obtained. FINDINGS: Left-sided central venous line catheter likely inserted via left internal jugular vein tip ends in the left upper paraspinal compartment/left upper hemithorax. No gross pneumothorax. Complete opacification of the left hemithorax. Cardiomediastinal silhouette appears included in the left hemithorax. Loculated the opacities in the periphery of the right hemithorax. Endotracheal tube, right-sided central venous line and NG tube remain in unchanged position. Multilevel thoracolumbar spondylosis. The osseous lesion at T1 vertebra is not depicted on this examination. Progressive for [address] chest[address] XR/XR chest 1V IMPRESSION: Status post central venous line catheter inserted via left internal jugular vein with questionable deep in the duplicated superior vena cava, versus innominate vein Electronically signed by: Pernell Dominique MD 02/05/2024 12:18 PM EST
--- NOTE | ~2024-01-21 | XR_ITS ---
EXAMINATION: XR CHEST CLINICAL INFORMATION: Hypoxia COMPARISON: Chest x-ray an CT chest 01/21/2024. TECHNIQUE: Frontal view of the chest was obtained. FINDINGS: The lungs are expanded with multifocal patchy opacity seen in both lungs slightly greater on the right side. These are best visualized on the CT chest performed 01/21/2024. Heart size and poor vascularity is normal. Suspect bilateral pleural effusions. Old healed were right rib fractures XR/XR chest 1V IMPRESSION: 1. Multifocal patchy opacities in both lungs slightly greater on the right side. These are best visualized on the CT chest performed 01/21/2024. 2. Suspect bilateral pleural effusions. Electronically signed by: Nasim Zamudio MD 01/23/2024 07:07 AM [facility]
--- NOTE | ~2024-01-21 | XR_ITS ---
EXAMINATION: XR CHEST CLINICAL INFORMATION: s/p ett placement COMPARISON: Chest radiograph dated 01/23/2024 TECHNIQUE: Frontal view of the chest was obtained. FINDINGS: Interval placement of endotracheal tube with tip projecting 6.0 cm above the rolly. Endogastric tube in place with tip located outside of field of view but located to the right of the spine and sidehole projecting over the spine at the level of the gastric antrum. Stable multifocal patchy opacities, greater on the right. Increase in the small right pleural effusion. Stable trace left pleural effusion. No pneumothorax. The cardiomediastinal silhouette is unchanged. Old healed right rib fractures. Degenerative changes of the bilateral shoulders, greater on the left. Degenerative changes of the visualized spine. XR/XR chest 1V IMPRESSION: 1. Endotracheal tube with tip projecting 6.0 cm above the rolly. 2. Endogastric tube in place with tip located outside of field of view but located to the right of the spine and sidehole projecting over the spine at the level of the gastric antrum. 3. Stable multifocal patchy opacities, greater on the right. 4. Increase in the small right pleural effusion. Stable trace left pleural effusion. Electronically signed by: Rosa Lowry MD 01/23/2024 12:10 PM [facility]
--- NOTE | ~2024-01-21 | XR_ITS ---
EXAMINATION: XR CHEST 1 VIEW CLINICAL INFORMATION: left lung collapse COMPARISON: February 05, 2024 TECHNIQUE: Single portable frontal view. Tubes and lines: Right IJ central line catheter tip projecting over the SVC. Endotracheal tube tip is about 4 cm from rolly properly positioned. Left IJ central line catheter tip projecting over the left innominate. Gastric tube passing below the diaphragm into the stomach. Lungs and pleura: Redemonstration of complete total white out of the left lung, opacification over the right middle and lower lobes sparing the right lung apex unchanged from prior exam. Bones/soft tissue: Skeletal structures included are normal for patient's age. XR/XR chest 1V IMPRESSION: 1. No significant change. Complete white out of the left lung, opacification over the right middle and lower lobes sparing the right lung apex unchanged. 2. Tubes and lines remain properly positioned. Electronically signed by: Chester Razo MD 02/10/2024 12:11 PM [facility]
--- NOTE | 2024-01-21 03:14 | ED_ITS ---
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 status post left lobectomy on 12/12/23 comes here for increased shortness a breath for last 2 days got prior to arrival saturating 79% room air patient does not have any oxygen at home saturation improved on non-rebreather to 94% Related Data Home Medications ?Medication ?Instructions ?Recorded ?Confirmed cephalexin 500 mg capsule 500 mg PO BID 12/01/23 01/05/24 esomeprazole magnesium 20 mg 20 mg PO DAILY@0630 12/01/23 01/05/24 capsule,delayed release (Nexium 24HR) bicalutamide 50 mg tablet 50 mg PO DAILY 12/10/23 01/05/24 fluticasone propionate 115 2 puff inhalation BID 12/10/23 01/05/24 mcg-salmeterol 21 mcg/actuation HFA inhaler (Advair HFA) Previous Rx's ?Medication ?Instructions ?Recorded albuterol sulfate 90 mcg/actuation 2 puff inhalation Q8H PRN 01/01/22 aerosol inhaler (ProAir HFA) shortness of breath or wheezing 30 days #8.5 grams docusate sodium 100 mg capsule 100 mg PO BID #30 caps 12/15/23 (Colace) darolutamide 300 mg tablet 600 mg (2 x 300 mg) PO BID #120 01/11/24 tabs ondansetron 8 mg disintegrating 8 mg PO Q8H PRN Nausea And 01/13/24 tablet Vomiting #30 tabs Allergies Allergy/AdvReac Type Severity Reaction Status Date / Time Penicillins Allergy Intermediate Vomiting Verified 01/21/24 03:16 Bees Allergy Severe anaphylaxis Uncoded 01/05/24 14:58 Review of Systems 2 Review of Systems: Yes all other systems are reviewed and are negative PMFSH Past Medical History Medical History Back pain Constipation Vomiting GERD (gastroesophageal reflux disease) History of prostate cancer Hemoptysis Carcinoma, lung Personal history of nicotine dependence Asthma with chronic obstructive pulmonary disease (COPD) COPD (chronic obstructive pulmonary disease) Obesity (BMI 30.0-34.9) History of COVID-19 Left hip prosthetic joint infection Opioid dependence Shoulder pain Osteoarthritis Right leg swelling Arthritis, hip Surgical History History of lobectomy of lung (12/10/23) Non-small cell cancer of left lung History of bronchoscopy History of total right hip replacement History of total left hip replacement History of lumbar surgery Family History Family History Father Colon cancer Mother Cancer Social History Social History Household Members: Children Household Members Other:: , lives with and 10 yo daughter Housing: House Are you a primary adult caregiver to a significant other at home: No Do you presently have visiting nurse or other home services: No Alcohol intake: never Patient Tobacco Use Status: Former Tobacco user Cigarette Packs Per Day: 1 Years Smoked: onset 16yo, 1ppd x 40yrs, 40pyh Smoked in Last 30 Days: No e-Cigarette/Vaping Use: Never Used Second Hand Smoke Exposure: No Use of substances other than those prescribed or required for medical reasons: No Advance Directives: No Advance Directives Information Provided: Yes Do you have a plan to hurt others: No Plan service: No Current 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 Oriented X3. In moderate is Eyes: PERRLA, No Nystagmus ENT: Pharynx normal. Oral Mucosa moist Neck: Normal inspection. Neck supple. CVS: Normal heart rate and rhythm. Pulses normal. Respiratory: No respiratory distress. Equal air entry bilateral, bilateral decreased air entry bilateral conducted sounds Abdomen: Soft and nontender. Bowel sounds are present, no mass palpable, no CVA tenderness Skin: Skin warm and dry. Normal skin color. Normal skin turgor. Extremities: No lower extremity edema. No calf tenderness Neuro: Oriented X 3. No motor deficit. No sensory deficit.No cerebellar signs , cranial nerves II-XII intact Medications Administered Generic Name Dose Route Start Last Admin Trade Name Freq PRN Reason Stop Dose Admin Potassium Chloride 10 meq in 100 mls @ 100 mls/hr 01/21/24 06:30 01/21/24 06:31 Potassium Chloride/H20 IV 01/21/24 08:29 100 mls/hr Q1H ALLYSSA Administration Discontinued Medications Generic Name Dose Route Start Last Admin Trade Name Freq PRN Reason Stop Dose Admin Albuterol Sulfate 7.5 mg/ 10 mg 01/21/24 04:15 01/21/24 04:22 Albuterol Sulfate 2.5 mg INHALE 01/21/24 04:16 10 mg ONCE ONE Administration Ceftriaxone Sodium 1 gm 01/21/24 03:55 01/21/24 04:04 Ceftriaxone Sodium 1 Gm Vial IVPUSH 01/21/24 03:56 1 gm ONCE ONE Administration Enoxaparin Sodium 90 mg 01/21/24 04:46 01/21/24 05:39 Enoxaparin Sodium 100 Mg/Ml Syringe SUBCUT 01/21/24 04:47 90 mg ONCE ONE Administration Sodium Chloride 1,000 mls @ 999 mls/hr 01/21/24 03:30 01/21/24 06:30 Ns IV 01/21/24 04:30 Not Given .Q1H1M ONE Sodium Chloride 1,000 mls @ 999 mls/hr 01/21/24 03:55 01/21/24 06:30 Ns IV 01/21/24 04:55 Not Given .Q1H1M ONE Magnesium Sulfate 2 gm in 50 mls @ 150 mls/hr 01/21/24 04:34 01/21/24 05:05 Magnesium Sulfate/H2o IV 01/21/24 04:53 Infused ONCE ONE Infusion Sodium Chloride 2,820 mls @ 2,820 mls/hr 01/21/24 06:23 01/21/24 04:08 Ns 30 ml/kg infuse over 1 hr (2820 ml) 01/21/24 07:22 2,820 mls/hr IV Administration .Q1H STA Piperacillin Sod/Tazobactam 50 mls @ 100 mls/hr 01/21/24 06:31 01/21/24 06:57 Sod 3.375 gm/ Sodium Chloride IV 01/21/24 07:00 100 mls/hr ONCE ONE Administration Iohexol 65 ml 01/21/24 05:19 01/21/24 05:20 Iohexol 350 Mg/Ml 100 Ml Infus..Btl IV 01/21/24 05:20 65 ml ONCE ONE Administration Methylprednisolone Sodium Succinate 125 mg 01/21/24 03:56 01/21/24 04:04 Methylprednisolone Sod Succ 125 Mg/2 Ml Vial IVPUSH 01/21/24 03:57 125 mg ONCE ONE Administration Morphine Sulfate 4 mg 01/21/24 06:00 01/21/24 06:19 Morphine Sulfate 4 Mg/Ml Cartridge IVPUSH 01/21/24 06:01 4 mg ONCE ONE Administration Protocol Ondansetron HCl 4 mg 01/21/24 06:00 01/21/24 06:20 Ondansetron Hcl 4 Mg/2 Ml Vial IVPUSH 01/21/24 06:01 4 mg ONCE ONE Administration Medical Decision Making Medical Decision Making [facility] Narrative: Patient with COVID positive with lung cancer metastatic with bilateral pneumonia with hypoxic failure on high flow oxygen at this time saturating 92% admit to the hospitalist service once a CTA report is back case signed out to Dr. rothman I do not see any saddle emboli patient has received IV antibiotics and IV fluids lactic acid is from bacteremia possible/from COVID/hypoxia patient was given Lovenox prophylactically Differential Diagnosis Differential Diagnoses: The differential diagnosis associated with the presentation includes Admission/Observation Consideration of admission/observation: Escalation of care including admission/observation considered Consult Healthcare Provider Management of the patient was discussed with: Hospitalist Lab Data [facility] Lab Attestation statement: I reviewed the patient's lab results. 01/21/24 03:27 01/21/24 03:27 Labs: Lab Results 01/21/24 01/21/24 01/21/24 Range/Units 03:27 03:33 03:37 WBC 25.8 H (4.8-10.8) X10*3/uL RBC 4.51 L D (4.60-5.80) X10*6/uL Hgb 10.7 L (14.0-18.0) g/dl Hct 35.6 L (42.0-52.0) % MCV 78.9 L (80.0-98.0) fL MCH 23.7 L (27.0-33.0) pg MCHC 30.1 L (31.0-36.0) g/dl RDW 18.8 H (11.0-16.0) % Plt Count 412 H (160-400) X10*3/uL MPV 9.3 L (9.4-12.4) fL Immature Gran % (Auto) 3.3 H (0.0-0.4) % Neut % (Auto) 74.1 H (45-73) % Lymph % (Auto) 16.8 L (20-40) % [place] % (Auto) 5.4 (2-11) % Eos % (Auto) 0.1 (0-4) % Baso % (Auto) 0.3 (0-2) % Lymph # (Auto) 4.3 (1.2-4.9) X10*3/uL [place] # (Auto) 1.4 H (0.1-1.2) X10*3/uL Eos # (Auto) 0.0 (0.0-0.4) X10*3/uL Baso # (Auto) 0.1 (0.0-0.2) X10*3/uL Abs Immat Gran (auto) 0.84 H (0.00-0.03) X10*3/uL Absolute Neuts (auto) 19.1 H (2.0-8.3) x10*3/uL Absolute Nucleated RBC 0.020 H (0.0-0.012) X10*3/uL Nucleated RBC % (auto) 0.1 (0.0-0.2) /100WBC PT 27.0 H (10.9-12.4) SEC INR 2.3 H (0.9-1.1) D-Dimer High Sensitivty 3614 NG/ML Hold Blue Top SEE NOTE VBG pH 7.28 L (7.32-7.43) VBG pCO2 63 mmHg VBG pO2 44 mmHg VBG HCO3 30 H (22-26) mmol/L VBG O2 Saturation 59.0 % VBG Base Excess 2.2 mmol/L Sodium 138 (135-145) mmol/L Potassium 2.8 L* (3.3-5.1) mmol/L Chloride 98 (96-108) mmol/L Carbon Dioxide 21 L (22-29) mmol/L Anion Gap 22 H (12-20) BUN 10 (9-16) mg/dL Creatinine 0.91 (0.5-1.4) mg/dL Estim Creat Clear Calc 88.4 Estimated GFR > 60 Random Glucose 245 H (60-115) mg/dL Lactic Acid 7.1 H* (0.5-2.0) mmol/L Lactic Acid F/U @ 2Hr (0.5-2.0) mmol/L Calcium 7.3 L D (8.4-10.2) mg/dL Total Bilirubin 0.5 (0.0-1.0) mg/dL AST 41 H (5-37) U/L ALT 7 (0-40) U/L Alkaline Phosphatase 164 H (39-117) U/L Troponin I High Sens 46.8 H D (<3.5-35.0) ng/L B-Natriuretic Peptide 264 H (<100) pg/mL Total Protein 7.0 (6.5-8.0) g/dL Albumin 2.8 L (3.5-5.0) g/dL Urine Color Urine Appearance Urine pH (5.0-9.0) Ur Specific [place] (1.005-1.025) Urine Protein (Neg-Trace) mg/dL Urine Glucose (UA) (Negative) mg/dL Urine Ketones (Negative) mg/dL Urine Blood (Negative) Urine Nitrite (Negative) Ur Leukocyte Esterase (Negative) Urine RBC (0-2) /HPF Urine WBC (0-5) /HPF Ur Squamous Epith Cells (0-2) /HPF Urine Bacteria (None Seen) Hyaline Casts (0-2) /LPF Granular Casts Influenza Type A (PCR) NEGATIVE (Negative) Influenza Type B (PCR) NEGATIVE (Negative) RSV RNA Qual (PCR) NEGATIVE (Negative) SARS-CoV-2 RNA (RT-PCR) POSITIVE A (Negative) 12/05/24 Range/Units 06:04 WBC (4.8-10.8) X10*3/uL RBC (4.60-5.80) X10*6/uL Hgb (14.0-18.0) g/dl Hct (42.0-52.0) % MCV (80.0-98.0) fL MCH (27.0-33.0) pg MCHC (31.0-36.0) g/dl RDW (11.0-16.0) % Plt Count (160-400) X10*3/uL MPV (9.4-12.4) fL Immature Gran % (Auto) (0.0-0.4) % Neut % (Auto) (45-73) % Lymph % (Auto) (20-40) % [place] % (Auto) (2-11) % Eos % (Auto) (0-4) % Baso % (Auto) (0-2) % Lymph # (Auto) (1.2-4.9) X10*3/uL [place] # (Auto) (0.1-1.2) X10*3/uL Eos # (Auto) (0.0-0.4) X10*3/uL Baso # (Auto) (0.0-0.2) X10*3/uL Abs Immat Gran (auto) (0.00-0.03) X10*3/uL Absolute Neuts (auto) (2.0-8.3) x10*3/uL Absolute Nucleated RBC (0.0-0.012) X10*3/uL Nucleated RBC % (auto) (0.0-0.2) /100WBC PT (10.9-12.4) SEC INR (0.9-1.1) D-Dimer High Sensitivty NG/ML Hold Blue Top VBG pH (7.32-7.43) VBG pCO2 mmHg VBG pO2 mmHg VBG HCO3 (22-26) mmol/L VBG O2 Saturation % VBG Base Excess mmol/L Sodium (135-145) mmol/L Potassium (3.3-5.1) mmol/L Chloride (96-108) mmol/L Carbon Dioxide (22-29) mmol/L Anion Gap (12-20) BUN (9-16) mg/dL Creatinine (0.5-1.4) mg/dL Estim Creat Clear Calc Estimated GFR Random Glucose (60-115) mg/dL Lactic Acid (0.5-2.0) mmol/L Lactic Acid F/U @ 2Hr 2.8 H* (0.5-2.0) mmol/L Calcium (8.4-10.2) mg/dL Total Bilirubin (0.0-1.0) mg/dL AST (5-37) U/L ALT (0-40) U/L Alkaline Phosphatase (39-117) U/L Troponin I High Sens 138.1 H* D (<3.5-35.0) ng/L B-Natriuretic Peptide (<100) pg/mL Total Protein (6.5-8.0) g/dL Albumin (3.5-5.0) g/dL Urine Color Yellow Urine Appearance Clear Urine pH 5.5 (5.0-9.0) Ur Specific [place] 1.015 (1.005-1.025) Urine Protein 30 (1+) H (Neg-Trace) mg/dL Urine Glucose (UA) Negative (Negative) mg/dL Urine Ketones Negative (Negative) mg/dL Urine Blood Negative (Negative) Urine Nitrite Negative (Negative) Ur Leukocyte Esterase Negative (Negative) Urine RBC 0-2 (0-2) /HPF Urine WBC 0-5 (0-5) /HPF Ur Squamous Epith Cells 6-10 (0-2) /HPF Urine Bacteria None Seen (None Seen) Hyaline Casts 3-5 (0-2) /LPF Granular Casts Present Influenza Type A (PCR) (Negative) Influenza Type B (PCR) (Negative) RSV RNA Qual (PCR) (Negative) SARS-CoV-2 RNA (RT-PCR) (Negative) Independent Interpretation I performed an independent interpretation of an: EKG and CT Scan Interpretation: Sinus tachycardia with heart rate 127 beats per min normal axis nonspecific STT wave changes no ST elevation Critical Care Time Critical Care Time Critical Care Time: Yes Total Critical Care Time: 60 Attestation: The patient was critically ill with a high probability of imminent or life threatening deterioration. I spent greater than ?65??minutes of discontinuous time evaluating the patient,delivering critical care at the bedside, discussing and evaluating pertinent data with consultants. Critical care time does not include time spent performing separately billable procedures or teaching. Total time spent performing critical care was 60???minutes. Discharge Plan Discharge Clinical Impression: Acute and chronic respiratory failure with hypoxia, Non-small cell carcinoma of lung, COVID-19 Patient Disposition: Admitted As Inpatient Print Language: Croatian
[2024-01-21 03:32] LABS: Venous Blood Gas Refer to POC result
[2024-01-21 03:33] LABS: Basophils Absolute Auto 0.1 X10*3/uL (0.0-0.2); Basophils Percent Auto 0.3 % (0-2); Eosinophils Percent Auto 0.1 % (0-4); Hematocrit 35.6 % (42.0-52.0); Hemoglobin 10.7 g/dl (14.0-18.0); Imm Gran Abs Auto 0.84 X10*3/uL (0.00-0.03); Imm Gran Pct Auto 3.3 % (0.0-0.4); Lymphocytes Absolute Auto 4.3 X10*3/uL (1.2-4.9); Lymphocytes Percent Auto 16.8 % (20-40); MANUAL DIFF FLAG NO; Mean Corpuscular HGB Conc 30.1 g/dl (31.0-36.0); Mean Corpuscular Hemoglobin 23.7 pg (27.0-33.0); Mean Corpuscular Volume 78.9 fL (80.0-98.0); Mean Platelet Volume 9.3 fL (9.4-12.4); Monocytes Absolute Auto 1.4 X10*3/uL (0.1-1.2); Monocytes Percent Auto 5.4 % (2-11); NRBC Pct Auto 0.1 /100WBC (0.0-0.2); Neutrophils Absolute Auto 19.1 x10*3/uL (2.0-8.3); Neutrophils Percent Auto 74.1 % (45-73); Platelet Count 412 X10*3/uL (160-400); Red Blood Count 4.51 X10*6/uL (4.60-5.80); Red Cell Distribution Width 18.8 % (11.0-16.0); White Blood Count 25.8 X10*3/uL (4.8-10.8)
[2024-01-21 03:38] LABS: VBG Base Excess 2.2 mmol/L; VBG HCO3 30 mmol/L (22-26); VBG pCO2 63 mmHg; VBG pH 7.28 (7.32-7.43); VBG pO2 44 mmHg
[2024-01-21 03:43] LABS: INTERNATIONAL NORM RATIO 2.3 (0.9-1.1)
[2024-01-21 03:51] LABS: D Dimer High Sensitivity 3614 NG/ML
[2024-01-21 03:52] LABS: B Type Natriuretic Peptide 264 pg/mL (<100); Troponin-I High Sensitivity 46.8 ng/L (<3.5-35.0)
[2024-01-21 03:55] LABS: Alanine Aminotransferase 7 U/L (0-40); Albumin Level 2.8 g/dL (3.5-5.0); Alkaline Phosphatase 164 U/L (39-117); Anion Gap 22 (12-20); Aspartate Amino Transferase 41 U/L (5-37); Bilirubin Total 0.5 mg/dL (0.0-1.0); Blood Urea Nitrogen 10 mg/dL (9-16); Calcium 7.3 mg/dL (8.4-10.2); Carbon Dioxide 21 mmol/L (22-29); Chloride 98 mmol/L (96-108); Creatinine Clr Calc Pharmacy 88.4; Estimated Glomerular Filt Rate > 60; Glucose Random 245 mg/dL (60-115); Potassium 2.8 mmol/L (3.3-5.1); Sodium 138 mmol/L (135-145)
[2024-01-21 03:59] LABS: Lactic Acid 7.1 mmol/L (0.5-2.0)
[2024-01-21] MEDS: cefTRIAXone sodium 1 GM VIAL IVPUSH (04:04)
[2024-01-21] MEDS: methylPREDNISolone Sod Succ 125 MG/2 ML VIAL IVPUSH (04:04)
[2024-01-21] MEDS: SODIUM CHLORIDE 2820 ML IV (04:08)
[2024-01-21 04:22] LABS: Influenza A PCR NEGATIVE (Negative); Influenza B PCR NEGATIVE (Negative); Resp Syncy Virus RNA Qual PCR NEGATIVE (Negative); SARS COV2 PCR INHOUSE POSITIVE (Negative)
[2024-01-21] MEDS: Albuterol Sulfate 7.5 MG, Albuterol Sulfate (0.083%) 2.5 MG 10 MG INHALE (04:22)
--- NOTE | 2024-01-21 04:44 | PC.NURSE ---
pt had run of vtach on heart monitor for approx 1 min unable to capture on ekg as revert back to sinus tachy. able to print heart monitor strip and notified MD Malloy. ordered iv mag per apr. pt denied cp/worsening sob during episode.
[2024-01-21] MEDS: Magnesium Sulfate/H2O 2 GM/50 ML PIGGYBACK IV (04:45)
[2024-01-21] MEDS: iohexoL 350 MG/ML 100 ML INFUS..BTL 65 ML IV (05:20)
[2024-01-21] MEDS: Enoxaparin Sodium 100 MG/ML SYRINGE 90 MG SUBCUT (05:39)
[2024-01-21 05:57] LABS: Reflex Lactate? Lactic Acid Added
[2024-01-21 06:14] LABS: Appearance Urine Clear; Color Urine Yellow; Glucose Urine UA Negative (Negative); Leukocyte Esterase Urine Negative (Negative); Nitrite Urine Negative (Negative); PH 5.5 (5.0-9.0); Specific Gravity - Urine 1.015 (1.005-1.025); UMIC TRIGGER UACC YES; Urine Blood Negative (Negative); Urine Ketones Negative (Negative); Urine Protein 30 (1+) mg/dL (Neg-Trace)
[2024-01-21] MEDS: Morphine Sulfate 4 MG/ML CARTRIDGE IVPUSH (06:19)
[2024-01-21] MEDS: ondansetron HCL 4 MG/2 ML VIAL IVPUSH (06:20)
[2024-01-21 06:28] LABS: Bacteria Urine None Seen (None Seen); Granular Casts Urine Present; RBC Urine 0-2 /HPF (0-2); WBC Urine 0-5 /HPF (0-5); ~Lactic Acid-LAB USE ONLY 2.8 mmol/L (0.5-2.0)
[2024-01-21] MEDS: Potassium Chloride/H20 10 MEQ/100 ML PIGGYBACK 100 MEQ IV ×6 (06:31→23:58)
[2024-01-21 06:33] LABS: Troponin-I High Sensitivity 138.1 ng/L (<3.5-35.0)
--- NOTE | 2024-01-21 06:39 | PC.NURSE ---
late entry pt biba from home reporting feeling worsening sob since yesterday but overall has been sob since L. lower lobectomy surgery approx 3 weeks ago. pt is not on home o2, came in on nonrebreather via ems. on arrival RT at bedside placed pt on bipap mask with improvement in o2 sat and pt verbalized improvement in sob. bilat iv established to AC 20g. ekg and labs obtained. pt is axox4. afebrile. sepsis alert initiated 355. ivf and abx administered per apr. pt denied cp snce arrival does report some lower back pain, states chronic pain exacerbated d/t prolonged time in bed lately d/t sob. repeat labs also obtained per MD verbal order. pt tolerated ct scan on non rebreather transported with this RN and RT on cardiac and o2 monitoring. currently has potassium infusing, resting comfortably on highflow. call early within reach.
[2024-01-21] MEDS: Piperacillin Sodium/Tazobactam 3.375 GM in 0.9 % Sodium Chloride 50 ML IV (06:57)
--- NOTE | 2024-01-21 07:39 | PC.NURSE ---
patient noted to be in resp distress when this RN assumed care, patient boosted and pillow placed behind his back to help sit up. patient on high flow, RT called, MD at bedside, patient satting 80%.
--- NOTE | 2024-01-21 08:00 | PC.NURSE ---
patient placed on cpap, fio2 40% peep of 8, patient now satting 96%, appears more color, skin warm and dry, skin color WNL. VSS, RT at bedside for ABG
[2024-01-21 08:11] LABS: Magnesium 2.6 mg/dL (1.6-2.6); Reflex Lactate? 2 Y
[2024-01-21 08:26] LABS: ABG Base Excess -1.1 mmol/L; ABG HCO3 23 mmol/L (22-26); ABG pCO2 37 mmHg (32-45); ABG pH 7.39 (7.35-7.45); ABG pO2 88 mmHg (83-108)
[2024-01-21 09:11] LABS: ~Lactic Acid-LAB USE ONLY 1.9 mmol/L (0.5-2.0)
--- NOTE | 2024-01-21 09:28 | P.HPCC_ITS ---
History of Present Illness Date of Service: 01/21/24 Attending physician on admission: Rosa Maria Balderas Chief Complaint: Dyspnea Patient is a 68 Y M w/ asthma/COPD, lung cancer s/p lobectomy, and prostate cancer w/ metastasis to bone, presenting initially to emergency department on 01/20 w/ dyspnea, found to be in acute on chronic hypoxic respiratory failure, initially on HFNC, though advanced to non-invasive ventilation, found to be positive for COVID and w/ CTA chest not suggestive of pulmonary embolism, though c/f progression of lung and bone metastasis Review of Systems 2 Review of Systems: Yes all other systems are reviewed and are negative [facility] Past Medical History Medical History Back pain Constipation Vomiting GERD (gastroesophageal reflux disease) History of prostate cancer Hemoptysis Carcinoma, lung Personal history of nicotine dependence Asthma with chronic obstructive pulmonary disease (COPD) COPD (chronic obstructive pulmonary disease) Obesity (BMI 30.0-34.9) History of COVID-19 Left hip prosthetic joint infection Opioid dependence Shoulder pain Osteoarthritis Right leg swelling Arthritis, hip Family History Family History Father Colon cancer Mother Cancer Surgical History Surgical History History of lobectomy of lung (12/10/23) Non-small cell cancer of left lung History of bronchoscopy History of total right hip replacement History of total left hip replacement History of lumbar surgery Social History Social History Household Members: Children Household Members Other:: , lives with and 10 yo daughter Housing: House Are you a primary vision care associate to a significant other at home: No Do you presently have visiting nurse or other home services: No Alcohol intake: never Patient Tobacco Use Status: Former Tobacco user Cigarette Packs Per Day: 1 Years Smoked: onset 16yo, 1ppd x 40yrs, 40pyh Smoked in Last 30 Days: No e-Cigarette/Vaping Use: Never Used Second Hand Smoke Exposure: No Use of substances other than those prescribed or required for medical reasons: No Advance Directives: No Advance Directives Information Provided: Yes Do you have a plan to hurt others: No Plan service: No Current 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 Cognitive needs: No Hearing needs: No Vision needs: No Meds Allergies Allergy/AdvReac Type Severity Reaction Status Date / Time Penicillins Allergy Intermediate Vomiting Verified 01/21/24 03:16 Bees Allergy Severe anaphylaxis Uncoded 01/05/24 14:58 Active Medications: Current Medications Albuterol/Ipratropium (Albuterol/Iprat 2.5/0.5mg 3 Ml Ampul.Neb) 3 ml INHALE RQ4H WHILE AWAKE ALLYSSA Potassium Phosphate (Kphos) 15 mmol in 250 mls @ 62.5 mls/hr IV Q4H ALLYSSA Stop: 01/21/24 17:29 Calcium Gluconate (Calcium Gluconate) 1 gm in 50 mls @ 50 mls/hr IV ONCE ONE Stop: 01/21/24 10:16 Ondansetron HCl (Ondansetron Hcl 4 Mg/2 Ml Vial) 4 mg IVPUSH Q8H PRN PRN Reason: Nausea and Vomiting Home Medications ?Medication ?Instructions ?Recorded ?Confirmed ?Last Taken ?Type esomeprazole magnesium 20 mg 20 mg PO DAILY@0630 12/01/23 01/05/24 12/09/23 History capsule,delayed release (Nexium 24HR) bicalutamide 50 mg tablet 50 mg PO DAILY 12/10/23 01/05/24 12/09/23 History fluticasone propionate 115 2 puff inhalation BID 12/10/23 01/05/24 12/09/23 History mcg-salmeterol 21 mcg/actuation HFA inhaler (Advair HFA) Physical Exam 2 Vital Signs: Vital Signs: Last Vital Signs Temp 97.7 F 01/21/24 06:17 Pulse 102 H 01/21/24 07:52 Resp 27 H 01/21/24 08:00 BP 118/65 01/21/24 07:52 Pulse Ox 95 01/21/24 07:52 O2 Del Method CPAP 01/21/24 07:52 O2 Flow Rate 55 01/21/24 07:38 FiO2 50 01/21/24 07:38 BMI result Body Mass Index 28.9 Const: General: cooperative, healthy appearing, comfortable, no acute distress, well developed, alert, awake and Physically active O rientation/consciousness: patient oriented x3 HEENT: Head: Yes normal to inspection, Yes normocephalic and Yes atraumatic Eyes: General: appearance normal, both eyes and all related structures Neck: Neck: Yes normal visual inspection, Yes full ROM, Yes no meningeal signs, Yes trachea midline and Yes supple Chest: Chest palpation & inspection: normal inspection of the chest Resp: Other: diminished breath sounds throughout Cardio: Rate: regular rate Rhythm: regular rhythm GI: Inspection: Yes normal to inspection, No Abdominal wall edema and No distended Palpation (GI): Soft to palpation, not firm, nontender, no guarding and not rigid Skin: General skin exam: no rashes or lesions noted Neuro: General: patient oriented x3, tone normal, moves all extremities, no meningeal signs and no focal motor deficits Extrem: General: Yes normal to inspection, Yes full ROM, Yes capillary refill normal and Yes no clubbing, cyanosis or edema Psych: Appearance: grossly normal Results Labs 01/21/24 03:27 01/21/24 12:02 Labs: Laboratory Results - last 24 hr 01/21/24 01/21/24 01/21/24 03:27 03:33 03:37 MCV 78.9 L MCH 23.7 L MCHC 30.1 L RDW 18.8 H Plt Count 412 H MPV 9.3 L Immature Gran % (Auto) 3.3 H Neut % (Auto) 74.1 H Lymph % (Auto) 16.[address] % (Auto) 5.4 Eos % (Auto) 0.1 Baso % (Auto) 0.3 Lymph # (Auto) 4.3 Lane # (Auto) 1.4 H Eos # (Auto) 0.0 Baso # (Auto) 0.1 Abs Immat Gran (auto) 0.84 H Absolute Neuts (auto) 19.1 H Absolute Nucleated RBC 0.020 H Nucleated RBC % (auto) 0.1 PT 27.0 H INR 2.3 H D-Dimer High Sensitivty 3614 Hold Blue Top SEE NOTE O2 Saturation ABG pH at Pt Temp ABG pCO2 at Pt Temp ABG pO2 at Pt Temp ABG HCO3 ABG Base Excess (Actual) VBG pH 7.28 L VBG pCO2 63 VBG pO2 44 VBG HCO3 30 H VBG O2 Saturation 59.0 VBG Base Excess 2.2 Anion Gap 22 H Estim Creat Clear Calc 88.4 Estimated GFR > 60 Random Glucose 245 H Lactic Acid 7.1 H* Lactic Acid F/U @ 2Hr Lactic Acid F/U @ 4Hr Calcium 7.3 L D Magnesium Total Bilirubin 0.5 AST 41 H ALT 7 Alkaline Phosphatase 164 H Troponin I High Sens 46.8 H D B-Natriuretic Peptide 264 H Total Protein 7.0 Albumin 2.8 L Urine Color Urine Appearance Urine pH Ur Specific [place] Urine Protein Urine Glucose (UA) Urine Ketones Urine Blood Urine Nitrite Ur Leukocyte Esterase Urine RBC Urine WBC Ur Squamous Epith Cells Urine Bacteria Hyaline Casts Granular Casts Influenza Type A (PCR) NEGATIVE Influenza Type B (PCR) NEGATIVE RSV RNA Qual (PCR) NEGATIVE SARS-CoV-2 RNA (RT-PCR) POSITIVE A 01/21/24 01/21/24 01/21/24 06:04 08:16 08:51 MCV MCH MCHC RDW Plt Count MPV Immature Gran % (Auto) Neut % (Auto) Lymph % (Auto) Lane % (Auto) Eos % (Auto) Baso % (Auto) Lymph # (Auto) Lane # (Auto) Eos # (Auto) Baso # (Auto) Abs Immat Gran (auto) Absolute Neuts (auto) Absolute Nucleated RBC Nucleated RBC % (auto) PT INR D-Dimer High Sensitivty Hold Blue Top O2 Saturation 97.0 ABG pH at Pt Temp 7.39 ABG pCO2 at Pt Temp 37 ABG pO2 at Pt Temp 88 ABG HCO3 23 ABG Base Excess (Actual) -1.1 VBG pH VBG pCO2 VBG pO2 VBG HCO3 VBG O2 Saturation VBG Base Excess Anion Gap Estim Creat Clear Calc Estimated GFR Random Glucose Lactic Acid Lactic Acid F/U @ 2Hr 2.8 H* Lactic Acid F/U @ 4Hr 1.9 Calcium Magnesium 2.6 Total Bilirubin AST ALT Alkaline Phosphatase Troponin I High Sens 138.1 H* D B-Natriuretic Peptide Total Protein Albumin Urine Color Yellow Urine Appearance Clear Urine pH 5.5 Ur Specific [place] 1.015 Urine Protein 30 (1+) H Urine Glucose (UA) Negative Urine Ketones Negative Urine Blood Negative Urine Nitrite Negative Ur Leukocyte Esterase Negative Urine RBC 0-2 Urine WBC 0-5 Ur Squamous Epith Cells 6-10 Urine Bacteria None Seen Hyaline Casts 3-5 Granular Casts Present Influenza Type A (PCR) Influenza Type B (PCR) RSV RNA Qual (PCR) SARS-CoV-2 RNA (RT-PCR) Imaging Radiologist's Impressions: Impressions Chest X-Ray 01/21/24 03:30 IMPRESSION: Concerning metastatic disease, mediastinal and pleura and likely osseous. Electronically signed by: Pernell Dominique MD 01/21/2024 08:16 AM EST RP Chest CTA 01/21/24 05:07 IMPRESSION: No acute pulmonary artery emboli. Metastatic disease, mediastinum, intrathoracic/pleura and osseous with the likely pathologic fractures of T1 and T4 and questionable extension into the central spinal canal. Fleischner guidelines were followed. Electronically signed by: Pernell Dominique MD 01/21/2024 08:36 AM EST RP Assessment and Plan (1) Acute and chronic respiratory failure with hypoxia: Status: Acute (2) COVID: Status: Acute (3) COPD (chronic obstructive pulmonary disease): Status: Acute (4) Asthma: Status: Acute (5) Lung cancer: Status: Acute (6) Prostate cancer: Status: Acute Plan Patient is a 68 Y M w/ obesity, asthma/COPD, lung cancer s/p lobectomy, and prostate cancer w/ metastasis to bone, presenting initially to emergency department on 01/20 w/ dyspnea, found to be in acute on chronic hypoxic respiratory failure, initially on HFNC, though advanced to non-invasive ventilation, found to be positive for COVID and w/ CTA chest not suggestive of pulmonary embolism, though c/f progression of lung and bone metastasis N: no acute issues CV: no acute issues R: acute on chronic hypoxic respiratory failure, likely multifactorial d/t COVID, progression of lung cancer/metastasis, asthma/COPD, and obesity, HFNC, wean as tolerated; dexamethasone, remdesivir, unasyn, and asthma/COPD management GI: NPO while on high respiratory support; monitor LFTs in setting of remdesivir : no acute issues; diuresis as tolerated; to closely monitor renal indices, elecrolytes H: leukocytosis, reactive; DVT prophylaxis w/ enoxaparin ID: as described above; to follow-up BCx E: to monitor hypo-/hyper-glycemia P: no acute issues
[2024-01-21] MEDS: Calcium Gluconate/NaCl,Iso-Osm 1 GM/50 ML PLAST..BAG IV ×2 (09:33→12:56)
[2024-01-21] MEDS: Furosemide 20 MG/2 ML VIAL IVPUSH ×2 (09:33→20:07)
[2024-01-21] MEDS: Potassium Phosphate/NS 15 MMOL/250 ML PLAST..BAG 62.5 MMOL IV ×3 (09:33→18:19)
[2024-01-21] MEDS: Ampicillin Sodium/Sulbactam Na 1.5 GM in 0.9 % Sodium Chloride 100 ML IV ×3 (10:04→21:30)
[2024-01-21] MEDS: dexAMETHasone sod phosphate 4 MG/ML VIAL 6 MG IVPUSH (10:07)
[2024-01-21 10:41] LABS: ABG Refer to POC result
[2024-01-21] MEDS: Remdesivir 200 MG in 0.9 % Sodium Chloride 210 ML 105 MG IV (10:48)
--- NOTE | 2024-01-21 11:29 | PC.NURSE ---
patient urinated 800 cc yellow urine
[2024-01-21] MEDS: Albuterol/Iprat 2.5/0.5MG 3 ML AMPUL.NEB INHALE ×3 (11:35→19:48)
--- NOTE | 2024-01-21 11:45 | PC.NURSE ---
delay in lab draw due to other critical events on ED unit, phleb states they can not send anyone to draw admitted patient labs. will attempt to draw labs at this time
--- NOTE | 2024-01-21 11:58 | PC.NURSE ---
soil technician at bedside for lab draw, RT at bedside for transport to ICU
[2024-01-21 12:13] LABS: VBG Base Excess 6.6 mmol/L; VBG HCO3 31 mmol/L (22-26); VBG pCO2 47 mmHg; VBG pH 7.43 (7.32-7.43); VBG pO2 148 mmHg
[2024-01-21 12:13] LABS: Basophils Percent Auto 0.2 % (0-2); Hematocrit 27.7 % (42.0-52.0); Hemoglobin 8.3 g/dl (14.0-18.0); Imm Gran Abs Auto 0.56 X10*3/uL (0.00-0.03); Imm Gran Pct Auto 2.5 % (0.0-0.4); Lymphocytes Absolute Auto 1.8 X10*3/uL (1.2-4.9); Lymphocytes Percent Auto 8.1 % (20-40); MANUAL DIFF FLAG SCAN; Mean Corpuscular Hemoglobin 23.5 pg (27.0-33.0); Mean Corpuscular Volume 78.5 fL (80.0-98.0); Monocytes Absolute Auto 0.2 X10*3/uL (0.1-1.2); Neutrophils Percent Auto 88.2 % (45-73); PLT CLUMP 1; Red Blood Count 3.53 X10*6/uL (4.60-5.80); Red Cell Distribution Width 18.5 % (11.0-16.0); SCAN SMEAR FLAG 1
[2024-01-21 12:14] LABS: Venous Blood Gas Refer to POC result
[2024-01-21 12:17] LABS: Partial Thromboplastin Time 44.4 SEC (26.0-36.8)
[2024-01-21 12:27] LABS: Alanine Aminotransferase < 6 U/L (0-40); Albumin Level 2.4 g/dL (3.5-5.0); Alkaline Phosphatase 115 U/L (39-117); Aspartate Amino Transferase 26 U/L (5-37); Bilirubin Direct 0.2 mg/dL (0.0-0.5); Bilirubin Total 0.3 mg/dL (0.0-1.0); Total Protein 5.9 g/dL (6.5-8.0)
[2024-01-21 12:29] LABS: Anion Gap 14 (12-20); Blood Urea Nitrogen 11 mg/dL (9-16); Calcium 6.6 mg/dL (8.4-10.2); Carbon Dioxide 25 mmol/L (22-29); Chloride 107 mmol/L (96-108); Creatinine Clr Calc Pharmacy 105.8; Estimated Glomerular Filt Rate > 60; Glucose Random 225 mg/dL (60-115); Magnesium 2.3 mg/dL (1.6-2.6); Phosphorus 2.5 mg/dL (2.7-4.5); Potassium 2.8 mmol/L (3.3-5.1); Sodium 143 mmol/L (135-145)
[2024-01-21 12:32] LABS: Mean Platelet Volume 9.4 fL (9.4-12.4); Platelet Count 292 X10*3/uL (160-400); Troponin-I High Sensitivity 188.3 ng/L (<3.5-35.0); White Blood Count 22.6 X10*3/uL (4.8-10.8)
[2024-01-21 12:33] LABS: SLIDE REVIEW VERIFIED
[2024-01-21] MEDS: Albumin Human 25 % 50 ML 100 ML IV (12:51)
[2024-01-21] MEDS: Insulin Lispro 100 UNIT/ML 3 ML VIAL SUBCUT ×3 (12:57→23:57)
[2024-01-21 13:21] LABS: Glucose, Whole Blood 208 mg/dL (60-115)
--- NOTE | 2024-01-21 15:06 | PHA.MEDREC ---
Addendum entered by Ratna Mackenzie [facility] 01/21/24 16:59: Reviewed by [facility] Addendum entered by Mini Oshea 01/21/24 16:38: following up from morning med rec shift. called and was able to confirm patients medications. states patent is no longer taking Bicalutamide 50 mg, Nubeqa 600 mg ( patient has not started yet. Will start soon) Aburaterone 250 mg ( making patient sick. Been off for 2 weeks now). confirmed patient just resumed Doxycyline mono 100 mg Q12H and Prednisone 2.5 mg bid and patient should be on for senior care. states she took over the responsibility of patient meds about two weeks ago and just found the bottle of Doxy and prednisone 2.5 mg. Original Note: Pharmacy Consult ? Medication Reconciliation Pharmacy has completed the medication reconciliation. I spoke with patients over the phone at 1319 and she did not know her husbands medications but stated she was coming in soon and was going to be taking pictures and writing down her husbands medications. Went to speak with patients at bedside at 1445 and she did not bring in any photos or writing on the medications and states he is taking a Doxycycline, Prednisone, Docusate and Ondansentron but was not able to tell me how he takes them or the dose of them. I asked about the cancer medications since it looked like he got switched recently from Bicalutamide to Darolutamide but she was not able to provide us with that information and exclaimed you people were the ones to prescribe this how can you not see it . I explained to her that this is important information that we want to document and she states he has not started the new medication but did not know the name of the other medication and stated well you're going to have to wait until I get home . I confirmed what I could with the information the confirmed with us and then when she calls us back we will update it if needed.
[2024-01-21 17:46] LABS: Glucose, Whole Blood 185 mg/dL (60-115)
[2024-01-21 19:08] LABS: Anion Gap 13 (12-20); Blood Urea Nitrogen 10 mg/dL (9-16); Calcium 6.4 mg/dL (8.4-10.2); Carbon Dioxide 24 mmol/L (22-29); Chloride 109 mmol/L (96-108); Creatinine Clr Calc Pharmacy 105.8; Estimated Glomerular Filt Rate > 60; Glucose Random 221 mg/dL (60-115); Magnesium 2.2 mg/dL (1.6-2.6); Phosphorus 2.8 mg/dL (2.7-4.5); Potassium 2.7 mmol/L (3.3-5.1); Sodium 143 mmol/L (135-145)
[2024-01-21 19:19] LABS: Albumin Level 2.5 g/dL (3.5-5.0)
[2024-01-21] MEDS: Calcium Chloride 1 GM/10 ML SYRINGE IVPUSH (19:38)
[2024-01-21] MEDS: Albumin Human 25 % 100 ML IV (19:43)
[2024-01-21 20:50] LABS: Glucose, Whole Blood 211 mg/dL (60-115)
[2024-01-21] MEDS: Acetaminophen 325 MG TABLET 650 MG PO (21:24)
[2024-01-21] MEDS: Potassium Chloride Packet 20 MEQ PACKET 60 MEQ PO (22:40)
[2024-01-21 23:56] LABS: Glucose, Whole Blood 167 mg/dL (60-115)
[2024-01-22] VITALS (41 sets, daily range): BP systolic 98–168; BP diastolic 46–72; PULSE 92–148; RESP 15–42; TEMP 36.4–37.1; O2SAT 91–95; BMI 28.5
[2024-01-22] MEDS: Albumin Human 25 % 100 ML IV ×3 (00:58→12:23)
[2024-01-22] MEDS: fentaNYL citrate/PF 100 MCG/2 ML VIAL 50 MCG IVPUSH ×2 (02:12→02:35)
[2024-01-22 02:26] LABS: Venous Blood Gas Refer to POC result
[2024-01-22 02:32] LABS: VBG Base Excess -5.1 mmol/L; VBG HCO3 21 mmol/L (22-26); VBG pCO2 44 mmHg; VBG pH 7.28 (7.32-7.43); VBG pO2 98 mmHg
[2024-01-22] MEDS: methylPREDNISolone Sod Succ 125 MG/2 ML VIAL IVPUSH (02:48)
[2024-01-22] MEDS: Albuterol Sulfate (0.083%) 2.5 MG/3 ML VIAL.NEB 5 MG INHALE (02:49)
[2024-01-22] MEDS: Albuterol/Iprat 2.5/0.5MG 3 ML AMPUL.NEB INHALE ×5 (02:49→23:10)
--- NOTE | 2024-01-22 02:53 | PC.RT ---
Patient SOB, wheezing L>R. Patient removed from high flow nasal cannule, placed back on BIPAP. Duoneb x1 and 5mg albuterol given via aerogen.
[2024-01-22 03:42] LABS: Venous Blood Gas Refer to POC result
[2024-01-22 03:45] LABS: Basophils Absolute Auto 0.1 X10*3/uL (0.0-0.2); Basophils Percent Auto 0.3 % (0-2); Hematocrit 24.4 % (42.0-52.0); Hemoglobin 7.6 g/dl (14.0-18.0); Imm Gran Abs Auto 0.75 X10*3/uL (0.00-0.03); Imm Gran Pct Auto 2.9 % (0.0-0.4); Lymphocytes Absolute Auto 1.2 X10*3/uL (1.2-4.9); Lymphocytes Percent Auto 4.7 % (20-40); MANUAL DIFF FLAG SCAN; Mean Corpuscular HGB Conc 31.1 g/dl (31.0-36.0); Mean Corpuscular Hemoglobin 24.3 pg (27.0-33.0); Mean Platelet Volume 9.5 fL (9.4-12.4); Monocytes Absolute Auto 0.6 X10*3/uL (0.1-1.2); Monocytes Percent Auto 2.4 % (2-11); Neutrophils Absolute Auto 22.8 x10*3/uL (2.0-8.3); Neutrophils Percent Auto 89.7 % (45-73); Platelet Count 292 X10*3/uL (160-400); Red Blood Count 3.13 X10*6/uL (4.60-5.80); Red Cell Distribution Width 18.6 % (11.0-16.0); SCAN SMEAR FLAG 1; White Blood Count 25.5 X10*3/uL (4.8-10.8)
[2024-01-22 03:48] LABS: VBG Base Excess 1.1 mmol/L; VBG HCO3 25 mmol/L (22-26); VBG pCO2 37 mmHg; VBG pH 7.43 (7.32-7.43); VBG pO2 77 mmHg
[2024-01-22 03:50] LABS: INTERNATIONAL NORM RATIO 3.7 (0.9-1.1); Prothrombin Time 42.7 SEC (10.9-12.4)
[2024-01-22 04:04] LABS: B Type Natriuretic Peptide 579 pg/mL (<100)
[2024-01-22 04:05] LABS: SLIDE REVIEW VERIFIED
[2024-01-22] MEDS: Ampicillin Sodium/Sulbactam Na 1.5 GM in 0.9 % Sodium Chloride 100 ML IV ×4 (04:05→21:39)
[2024-01-22 04:07] LABS: Albumin Level 3.2 g/dL (3.5-5.0); Anion Gap 20 (12-20); Aspartate Amino Transferase 47 U/L (5-37); Bilirubin Total 0.5 mg/dL (0.0-1.0); Blood Urea Nitrogen 12 mg/dL (9-16); Calcium 7.5 mg/dL (8.4-10.2); Carbon Dioxide 20 mmol/L (22-29); Chloride 110 mmol/L (96-108); Creatinine Clr Calc Pharmacy 96.9; Estimated Glomerular Filt Rate > 60; Glucose Random 240 mg/dL (60-115); Magnesium 2.2 mg/dL (1.6-2.6); Phosphorus 2.7 mg/dL (2.7-4.5); Potassium 2.9 mmol/L (3.3-5.1); Sodium 147 mmol/L (135-145); Total Protein 6.5 g/dL (6.5-8.0)
[2024-01-22 04:25] LABS: Alanine Aminotransferase < 6 U/L (0-40); Alkaline Phosphatase 116 U/L (39-117)
[2024-01-22] MEDS: Calcium Gluconate/NaCl,Iso-Osm 1 GM/50 ML PLAST..BAG IV (04:39)
[2024-01-22] MEDS: Potassium Chloride/H20 10 MEQ/100 ML PIGGYBACK 100 MEQ IV ×13 (04:42→23:54)
--- NOTE | 2024-01-22 05:05 | PC.NURSE ---
Approx 0200: Patient noted to have increased WOB and desaturating to mid-low 80s on hiflo 30%. This RN and GENERAL REPAIR MECHANIC Castro to bedside. Patient boosted and HOB raised, patient using accessory muscles and abdominal breathing. 50 mcg fentanyl IVP given per GENERAL REPAIR MECHANIC Matthew for WOB and respiratory distress, see MAR. Approx 0215: RT called to bedside, hiflo titrated to 45% without improvement. Patient diaphoretic, RR in 30s-40s, ST on tele in 120s with bursts of nonsustained polymorphic Vtach. Profound inspiratory and expiratory wheezing auscultated bilaterally. RT placed patient on BiPAP and updraft administered per APR. Approx 0230: Minimal improvement in WOB, patient remained diaphoretic and in resp distress. More albuterol administered by RT (see MAR) and additional 50 mcg IVP given per GENERAL REPAIR MECHANIC Matthew for WOB. HR tachycardic into 180s-190s, ?SVT. Approx 0245: 125mg solu-medrol administered IVP per APR with good effect. ST on tele 100s-120s, RRs 20-25, clear breath sounds auscultated. Approx 0400: Patient resting comfortably on BiPAP 35% FiO2, RR even and unlabored, VSS. Bed locked in lowest position, bed alarm on, call early within reach.
[2024-01-22] MEDS: Enoxaparin Sodium 40 MG/0.4 ML SYRINGE SUBCUT (05:52)
[2024-01-22] MEDS: Pantoprazole Sodium 40 MG/10 ML VIAL IVPUSH (05:53)
[2024-01-22] MEDS: Insulin Lispro 100 UNIT/ML 3 ML VIAL SUBCUT ×4 (05:53→23:54)
[2024-01-22 05:54] LABS: Glucose, Whole Blood 220 mg/dL (60-115)
[2024-01-22] MEDS: dexAMETHasone sod phosphate 10 MG/ML VIAL IVPUSH ×3 (08:09→20:45)
--- NOTE | 2024-01-22 08:45 | P.PNCC_ITS ---
Subjective Subjective Date of Service: 01/22/24 Interval History: appreciable COPD exacerbation overnight, improved w/ BiPAP, duoneb, and increased glucocorticosteroids Critical Care Time (minutes): 60 Physical Exam 2 Vital Signs: Vital Signs: Last Vital Signs Temp 97.8 F 01/22/24 08:00 Pulse 109 H 01/22/24 08:00 Resp 18 01/22/24 08:00 BP 117/60 01/22/24 08:00 Pulse Ox 91 L 01/22/24 08:00 O2 Del Method High Flow Nasal C annula 01/22/24 08:00 O2 Flow Rate 50 01/22/24 08:00 FiO2 35 01/22/24 08:00 BMI result Body Mass Index 28.5 Const: Other: BiPAP in place General: comfortable, no acute distress, well developed, alert, awake and Physically active Orientation/consciousness: patient oriented x3 HEENT: Head: Yes normal to inspection, Yes normocephalic and Yes atraumatic Eyes: General: appearance normal, both eyes and all related structures Neck: Neck: Yes normal visual inspection, Yes full ROM, Yes no meningeal signs, Yes trachea midline and Yes supple Chest: Chest palpation & inspection: normal inspection of the chest Resp: Other: appreciable rhonchi, L greater than R; appreciable wheezing L greater than R; some rales throughout Effort & Inspection: normal respiratory effort Cardio: Rate: tachycardic Rhythm: regular rhythm GI: Inspection: Yes normal to inspection, No Abdominal wall edema and No distended Palpation (GI): Soft to palpation, not firm, nontender, no guarding and not rigid Skin: General skin exam: no rashes or lesions noted Neuro: General: patient oriented x3, tone normal, moves all extremities, no meningeal signs and no focal motor deficits Extrem: General: Yes normal to inspection, Yes full ROM, Yes capillary refill normal and Yes no clubbing, cyanosis or edema Psych: Appearance: grossly normal Objective Data Labs 01/22/24 03:33 01/22/24 03:33 Labs: Laboratory Results - last 24 hr 01/21/24 01/21/24 01/21/24 08:51 12:02 12:08 WBC 22.6 H RBC 3.53 L D Hgb 8.3 L D Hct 27.7 L D MCV 78.5 L MCH 23.5 L MCHC 30.0 L RDW 18.5 H Plt Count 292 D MPV 9.4 Immature Gran % (Auto) 2.5 H Neut % (Auto) 88.2 H Lymph % (Auto) 8.1 L Johnston % (Auto) 1.0 L Eos % (Auto) 0.0 Baso % (Auto) 0.2 Lymph # (Auto) 1.8 Johnston # (Auto) 0.2 Eos # (Auto) 0.0 Baso # (Auto) 0.0 Abs Immat Gran (auto) 0.56 H Absolute Neuts (auto) 20.0 H Absolute Nucleated RBC 0.000 Nucleated RBC % (auto) 0.0 Smear Tech's Comments VERIFIED Hold Purple Top PT INR APTT 44.4 H D VBG pH 7.43 VBG pCO2 47 VBG pO2 148 VBG HCO3 31 H VBG O2 Saturation TNP VBG Base Excess 6.6 Sodium 143 Potassium 2.8 L* Chloride 107 Carbon Dioxide 25 Anion Gap 14 BUN 11 Creatinine 0.76 Estim Creat Clear Calc 105.8 Estimated GFR > 60 POC Glucose Random Glucose 225 H Lactic Acid F/U @ 4Hr 1.9 Calcium 6.6 L D Phosphorus 2.5 L Magnesium 2.3 Total Bilirubin 0.3 Direct Bilirubin 0.2 AST 26 ALT < 6 Alkaline Phosphatase 115 Troponin I High Sens 188.3 H* B-Natriuretic Peptide Total Protein 5.9 L Albumin 2.4 L 01/21/24 01/21/24 01/21/24 12:49 17:42 18:40 WBC RBC Hgb Hct MCV MCH MCHC RDW Plt Count MPV Immature Gran % (Auto) Neut % (Auto) Lymph % (Auto) Johnston % (Auto) Eos % (Auto) Baso % (Auto) Lymph # (Auto) Johnston # (Auto) Eos # (Auto) Baso # (Auto) Abs Immat Gran (auto) Absolute Neuts (auto) Absolute Nucleated RBC Nucleated RBC % (auto) Smear Tech's Comments Hold Purple Top PT INR APTT VBG pH VBG pCO2 VBG pO2 VBG HCO3 VBG O2 Saturation VBG Base Excess Sodium 143 Potassium 2.7 L* Chloride 109 H Carbon Dioxide 24 Anion Gap 13 BUN 10 Creatinine 0.76 Estim Creat Clear Calc 105.8 Estimated GFR > 60 POC Glucose 208 H 185 H Random Glucose 221 H Lactic Acid F/U @ 4Hr Calcium 6.4 L Phosphorus 2.8 Magnesium 2.2 Total Bilirubin Direct Bilirubin AST ALT Alkaline Phosphatase Troponin I High Sens B-Natriuretic Peptide Total Protein Albumin 2.5 L 01/21/24 01/21/24 01/21/24 18:44 20:46 23:53 WBC RBC Hgb Hct MCV MCH MCHC RDW Plt Count MPV Immature Gran % (Auto) Neut % (Auto) Lymph % (Auto) Johnston % (Auto) Eos % (Auto) Baso % (Auto) Lymph # (Auto) Johnston # (Auto) Eos # (Auto) Baso # (Auto) Abs Immat Gran (auto) Absolute Neuts (auto) Absolute Nucleated RBC Nucleated RBC % (auto) Smear Tech's Comments Hold Purple Top SEE NOTE PT INR APTT VBG pH VBG pCO2 VBG pO2 VBG HCO3 VBG O2 Saturation VBG Base Excess Sodium Potassium Chloride Carbon Dioxide Anion Gap BUN Creatinine Estim Creat Clear Calc Estimated GFR POC Glucose 211 H 167 H Random Glucose Lactic Acid F/U @ 4Hr Calcium Phosphorus Magnesium Total Bilirubin Direct Bilirubin AST ALT Alkaline Phosphatase Troponin I High Sens B-Natriuretic Peptide Total Protein Albumin 01/22/24 01/22/24 01/22/24 02:27 03:33 03:33 WBC 25.5 H RBC 3.13 L Hgb 7.6 L Hct 24.4 L MCV 78.0 L MCH 24.3 L MCHC 31.1 RDW 18.6 H Plt Count 292 MPV 9.5 Immature Gran % (Auto) 2.9 H Neut % (Auto) 89.7 H Lymph % (Auto) 4.7 L Johnston % (Auto) 2.4 Eos % (Auto) 0.0 Baso % (Auto) 0.3 Lymph # (Auto) 1.2 Johnston # (Auto) 0.6 Eos # (Auto) 0.0 Baso # (Auto) 0.1 Abs Immat Gran (auto) 0.75 H Absolute Neuts (auto) 22.8 H Absolute Nucleated RBC 0.000 Nucleated RBC % (auto) 0.0 Smear Tech's Comments VERIFIED Hold Purple Top PT 42.7 H D INR 3.7 H APTT 36.0 VBG pH 7.28 L VBG pCO2 44 VBG pO2 98 VBG HCO3 21 L VBG O2 Saturation 96.0 VBG Base Excess -5.1 Sodium Cancelled 147 H Potassium Cancelled Chloride Carbon Dioxide Anion Gap BUN Creatinine Estim Creat Clear Calc Estimated GFR POC Glucose Random Glucose Lactic Acid F/U @ 4Hr Calcium Phosphorus Magnesium Total Bilirubin Direct Bilirubin AST ALT Alkaline Phosphatase Troponin I High Sens B-Natriuretic Peptide Total Protein Albumin 01/22/24 01/22/24 01/22/24 03:33 03:33 03:33 WBC RBC Hgb Hct MCV MCH MCHC RDW Plt Count MPV Immature Gran % (Auto) Neut % (Auto) Lymph % (Auto) Johnston % (Auto) Eos % (Auto) Baso % (Auto) Lymph # (Auto) Johnston # (Auto) Eos # (Auto) Baso # (Auto) Abs Immat Gran (auto) Absolute Neuts (auto) Absolute Nucleated RBC Nucleated RBC % (auto) Smear Tech's Comments Hold Purple Top PT INR APTT VBG pH VBG pCO2 VBG pO2 VBG HCO3 VBG O2 Saturation VBG Base Excess Sodium Potassium 2.9 L* Chloride Cancelled 110 H Carbon Dioxide Cancelled 20 L Anion Gap Cancelled BUN Creatinine Estim Creat Clear Calc Estimated GFR POC Glucose Random Glucose Lactic Acid F/U @ 4Hr Calcium Phosphorus Magnesium Total Bilirubin Direct Bilirubin AST ALT Alkaline Phosphatase Troponin I High Sens B-Natriuretic Peptide Total Protein Albumin 01/22/24 01/22/24 01/22/24 03:33 03:33 03:33 WBC RBC Hgb Hct MCV MCH MCHC RDW Plt Count MPV Immature Gran % (Auto) Neut % (Auto) Lymph % (Auto) Johnston % (Auto) Eos % (Auto) Baso % (Auto) Lymph # (Auto) Johnston # (Auto) Eos # (Auto) Baso # (Auto) Abs Immat Gran (auto) Absolute Neuts (auto) Absolute Nucleated RBC Nucleated RBC % (auto) Smear Tech's Comments Hold Purple Top PT INR APTT VBG pH VBG pCO2 VBG pO2 VBG HCO3 VBG O2 Saturation VBG Base Excess Sodium Potassium Chloride Carbon Dioxide Anion Gap 20 BUN Cancelled 12 Creatinine Cancelled 0.83 Estim Creat Clear Calc Cancelled Estimated GFR POC Glucose Random Glucose Lactic Acid F/U @ 4Hr Calcium Phosphorus Magnesium Total Bilirubin Direct Bilirubin AST ALT Alkaline Phosphatase Troponin I High Sens B-Natriuretic Peptide Total Protein Albumin 01/22/24 01/22/24 01/22/24 03:33 03:33 03:33 WBC RBC Hgb Hct MCV MCH MCHC RDW Plt Count MPV Immature Gran % (Auto) Neut % (Auto) Lymph % (Auto) Johnston % (Auto) Eos % (Auto) Baso % (Auto) Lymph # (Auto) Johnston # (Auto) Eos # (Auto) Baso # (Auto) Abs Immat Gran (auto) Absolute Neuts (auto) Absolute Nucleated RBC Nucleated RBC % (auto) Smear Tech's Comments Hold Purple Top PT INR APTT VBG pH VBG pCO2 VBG pO2 VBG HCO3 VBG O2 Saturation VBG Base Excess Sodium Potassium Chloride Carbon Dioxide Anion Gap BUN Creatinine Estim Creat Clear Calc 96.9 Estimated GFR Cancelled > 60 POC Glucose Random Glucose Cancelled 240 H Lactic Acid F/U @ 4Hr Calcium Cancelled Phosphorus Magnesium Total Bilirubin Direct Bilirubin AST ALT Alkaline Phosphatase Troponin I High Sens B-Natriuretic Peptide Total Protein Albumin 01/22/24 01/22/24 01/22/24 03:33 03:33 03:33 WBC RBC Hgb Hct MCV MCH MCHC RDW Plt Count MPV Immature Gran % (Auto) Neut % (Auto) Lymph % (Auto) Johnston % (Auto) Eos % (Auto) Baso % (Auto) Lymph # (Auto) Johnston # (Auto) Eos # (Auto) Baso # (Auto) Abs Immat Gran (auto) Absolute Neuts (auto) Absolute Nucleated RBC Nucleated RBC % (auto) Smear Tech's Comments Hold Purple Top PT INR APTT VBG pH VBG pCO2 VBG pO2 VBG HCO3 VBG O2 Saturation VBG Base Excess Sodium Potassium Chloride Carbon Dioxide Anion Gap BUN Creatinine Estim Creat Clear Calc Estimated GFR POC Glucose Random Glucose Lactic Acid F/U @ 4Hr Calcium 7.5 L D Phosphorus Cancelled 2.7 Magnesium Cancelled 2.2 Total Bilirubin Cancelled Direct Bilirubin AST ALT Alkaline Phosphatase Troponin I High Sens B-Natriuretic Peptide Total Protein Albumin 01/22/24 01/22/24 01/22/24 03:33 03:33 03:33 WBC RBC Hgb Hct MCV MCH MCHC RDW Plt Count MPV Immature Gran % (Auto) Neut % (Auto) Lymph % (Auto) Johnston % (Auto) Eos % (Auto) Baso % (Auto) Lymph # (Auto) Johnston # (Auto) Eos # (Auto) Baso # (Auto) Abs Immat Gran (auto) Absolute Neuts (auto) Absolute Nucleated RBC Nucleated RBC % (auto) Smear Tech's Comments Hold Purple Top PT INR APTT VBG pH VBG pCO2 VBG pO2 VBG HCO3 VBG O2 Saturation VBG Base Excess Sodium Potassium Chloride Carbon Dioxide Anion Gap BUN Creatinine Estim Creat Clear Calc Estimated GFR POC Glucose Random Glucose Lactic Acid F/U @ 4Hr Calcium Phosphorus Magnesium Total Bilirubin 0.5 Direct Bilirubin Cancelled AST Cancelled 47 H ALT Cancelled < 6 Alkaline Phosphatase Cancelled Troponin I High Sens B-Natriuretic Peptide Total Protein Albumin 01/22/24 01/22/24 01/22/24 03:33 03:33 03:33 WBC RBC Hgb Hct MCV MCH MCHC RDW Plt Count MPV Immature Gran % (Auto) Neut % (Auto) Lymph % (Auto) Johnston % (Auto) Eos % (Auto) Baso % (Auto) Lymph # (Auto) Johnston # (Auto) Eos # (Auto) Baso # (Auto) Abs Immat Gran (auto) Absolute Neuts (auto) Absolute Nucleated RBC Nucleated RBC % (auto) Smear Tech's Comments Hold Purple Top PT INR APTT VBG pH VBG pCO2 VBG pO2 VBG HCO3 VBG O2 Saturation VBG Base Excess Sodium Potassium Chloride Carbon Dioxide Anion Gap BUN Creatinine Estim Creat Clear Calc Estimated GFR POC Glucose Random Glucose Lactic Acid F/U @ 4Hr Calcium Phosphorus Magnesium Total Bilirubin Direct Bilirubin AST ALT Alkaline Phosphatase 116 Troponin I High Sens B-Natriuretic Peptide 579 H Total Protein Cancelled 6.5 Albumin Cancelled 3.2 L 01/22/24 01/22/24 03:42 05:40 WBC RBC Hgb Hct MCV MCH MCHC RDW Plt Count MPV Immature Gran % (Auto) Neut % (Auto) Lymph % (Auto) Johnston % (Auto) Eos % (Auto) Baso % (Auto) Lymph # (Auto) Johnston # (Auto) Eos # (Auto) Baso # (Auto) Abs Immat Gran (auto) Absolute Neuts (auto) Absolute Nucleated RBC Nucleated RBC % (auto) Smear Tech's Comments Hold Purple Top PT INR APTT VBG pH 7.43 VBG pCO2 37 VBG pO2 77 VBG HCO3 25 VBG O2 Saturation Not Reportable VBG Base Excess 1.1 Sodium Potassium Chloride Carbon Dioxide Anion Gap BUN Creatinine Estim Creat Clear Calc Estimated GFR POC Glucose 220 H Random Glucose Lactic Acid F/U @ 4Hr Calcium Phosphorus Magnesium Total Bilirubin Direct Bilirubin AST ALT Alkaline Phosphatase Troponin I High Sens B-Natriuretic Peptide Total Protein Albumin Microbiology Microbiology Results: Microbiology 01/21/24 04:03 Blood - Venous Blood Culture - Preliminary No growth after 24 hours. 01/21/24 04:03 Blood - Venous Blood Culture - Preliminary No growth after 24 hours. Progress Note: A&P Assessment and plan (1) Acute and chronic respiratory failure with hypoxia: Status: Acute (2) COVID: Status: Acute (3) Lung cancer: Status: Acute (4) COPD (chronic obstructive pulmonary disease): Status: Acute Plan Patient is a 68 Y M w/ obesity, asthma/COPD, lung cancer s/p lobectomy, and prostate cancer w/ metastasis to bone, presenting initially to emergency department on 01/20 w/ dyspnea, found to be in acute on chronic hypoxic respiratory failure, initially on HFNC, though advanced to non-invasive ventilation, found to be positive for COVID and w/ CTA chest not suggestive of pulmonary embolism, though c/f progression of lung and bone metastasis N: no acute issues CV: no acute issues R: acute on chronic hypoxic respiratory failure, likely multifactorial d/t COVID, progression of lung cancer/metastasis, asthma/COPD, and obesity, BiPAP vs HFNC, wean as tolerated; dexamethasone, remdesivir, unasyn, and asthma/COPD management GI: NPO while on high respiratory support; monitor LFTs in setting of remdesivir : no acute issues; diuresis as tolerated; to closely monitor renal indices, electrolytes H: leukocytosis, reactive; anemia, to monitor closely; DVT prophylaxis w/ enoxaparin ID: as described above; to follow-up BCx E: to monitor hypo-/hyper-glycemia P: no acute issues Quality Stroke Does the patient have a stroke diagnosis?: No VTE Prior VTE?: No VTE Risk Level:: Medical - moderate - high VTE Device Contraindication: N/A - Device Ordered VTE Drug Contraindication: N/A - Med Ordered
[2024-01-22] MEDS: Furosemide 40 MG/4 ML VIAL IVPUSH ×2 (09:23→17:51)
--- NOTE | 2024-01-22 10:01 | MHC.CM.PN ---
Addendum entered by Janessa Ramos 01/22/24 10:36: PER [facility], PT IS ALREADY ACTIVE WITH [facility]. PLAN FOR RESUMPTION AT DC. Original Note: IMM DELIVERED TO PT AT BEDSIDE IN ICU. PT ON BI-PAP BUT ABLE TO PARTICIPATE IN ASSESSMENT. PT LIVES WITH FAMILY. INDEPENDENT AT BASELINE. +HCP NAMING DAUGHTER, PLACED ON CHART. [place] [facility]: PT MAY NEED HOME SERVICES ON DC , REFERRAL SENT TO [facility]. PT WILL HAVE TRANSPORT HOME. CM WILL CONTINUE TO FOLLOW FOR ANY CHANGE TO DC PLAN/NEEDS.
[2024-01-22] MEDS: Remdesivir 100 MG in 0.9 % Sodium Chloride 230 ML 115 MG IV (10:31)
[2024-01-22 12:20] LABS: Glucose, Whole Blood 212 mg/dL (60-115)
--- NOTE | 2024-01-22 13:50 | P.CDIM_ITS ---
PROVIDER RESPONSE TEXT: To clarify, the appropriate diagnosis supported by the clinical indicators: Hypernatremia: Probable QUERY TEXT: PHYSICIAN'S DOCUMENTATION REQUEST Date of Query: 01/22/2024 09:23 AM EST Patient Name: Gary Raphael Admit Date: 01/21/2024 Dear Rosa Maria Balderas MD, A review of the medical record indicates additional documentation may be needed. Please review below and update the documentation accordingly. Clinical Indicators: LABS: sodium 147 H fluids Based on the above, is there a diagnosis that correlates with these lab findings: Hypernatremia possible, probable, suspected etc. Labs indicate a diagnosis of (please specify) Other (explain) Clinically unable to determine (explain) Thank you, Mindy Trinidad, CCS, CDIS Use of terms such as suspected, likely, concern for, or probable (associated with a specific diagnosi s that is being evaluated, monitored, or treated as if it exists) are acceptable and can be coded in the inpatient se tting, when documented at the time of discharge. Please use your independent medical judgment in providing your response. THIS QUERY IS PART OF THE PERMANENT MEDICAL RECORD
--- NOTE | 2024-01-22 13:50 | P.CDIM_ITS ---
PROVIDER RESPONSE TEXT: To clarify, the appropriate diagnosis supported by the clinical indicators: Hypokalemia: Possible QUERY TEXT: PHYSICIAN'S DOCUMENTATION REQUEST Date of Query: 01/22/2024 09:25 AM EST Patient Name: Gary Raphael Admit Date: 01/21/2024 Dear Rosa Maria Balderas MD, A review of the medical record indicates additional documentation may be needed. Please review below and update the documentation accordingly. Clinical Indicators: LABS: potassium 2.9 L IV Klor con Based on the above, is there a diagnosis that correlates with these lab findings: Hypokalemia possible, resolved, suspected etc. Labs indicate a diagnosis of (please specify) Other (explain) Clinically unable to determine (explain) Thank you, Mindy Trinidad, CCS, CDIS Use of terms such as suspected, likely, concern for, or probable (associated with a specific diagnosi s that is being evaluated, monitored, or treated as if it exists) are acceptable and can be coded in the inpatient se tting, when documented at the time of discharge. Please use your independent medical judgment in providing your response. THIS QUERY IS PART OF THE PERMANENT MEDICAL RECORD
[2024-01-22] MEDS: Morphine Sulfate 4 MG/ML CARTRIDGE IVPUSH (14:15)
[2024-01-22] MEDS: Metoprolol Tartrate 5 MG/5 ML VIAL 10 MG IVPUSH (14:30)
--- NOTE | 2024-01-22 14:39 | ECG_ITS ---
Test Reason : Heart Rate Blood Pressure : / mmHG Vent. Rate : 104 BPM Atrial Rate : 104 BPM P-R Int : 148 ms QRS Dur : 090 ms QT Int : 392 ms P-R-T Axes : 067 026 110 degrees QTc Int : 515 ms Sinus tachycardia Nonspecific ST and T wave abnormality Abnormal ECG When compared with ECG of 22-JAN-2024 14:37, No significant change was found Referred By: Rosa Maria Balderas Electronically Signed By:Gasper Montes De Oca
--- NOTE | 2024-01-22 15:23 | PC.NURSE ---
At approx 1410, pt noted to have increased HR, WOB, and anxiety. HR rapidly zan to 190s. MD alerted. RT called to bedside. MD at bedside. See mar for medication details/times. Morphine given w no appreciable effect. Lopressor given w positive effect. HR lowered to 90-100. Pt more at ease. At this time, pt remains on bipap.
[2024-01-22 16:05] LABS: Anion Gap 18 (12-20); Blood Urea Nitrogen 13 mg/dL (9-16); Calcium 7.5 mg/dL (8.4-10.2); Carbon Dioxide 24 mmol/L (22-29); Chloride 108 mmol/L (96-108); Creatinine Clr Calc Pharmacy 98.7; Estimated Glomerular Filt Rate > 60; Glucose Random 205 mg/dL (60-115); Phosphorus 2.5 mg/dL (2.7-4.5); Potassium 2.8 mmol/L (3.3-5.1); Sodium 147 mmol/L (135-145)
[2024-01-22] MEDS: Calcium Gluconate/NaCl,Iso-Osm 2 GM/100 ML PLAST..BAG IV (17:00)
[2024-01-22 17:28] LABS: Glucose, Whole Blood 168 mg/dL (60-115)
[2024-01-22] MEDS: Doxycycline Hyclate 100 MG in 0.9 % Sodium Chloride 250 ML 166.67 MG IV (17:53)
[2024-01-22] MEDS: Potassium Phosphate/NS 15 MMOL/250 ML PLAST..BAG 62.5 MMOL IV ×2 (17:53→19:36)
[2024-01-22 18:45] LABS: Anion Gap 13 (12-20); Blood Urea Nitrogen 15 mg/dL (9-16); Calcium 7.8 mg/dL (8.4-10.2); Carbon Dioxide 28 mmol/L (22-29); Chloride 110 mmol/L (96-108); Creatinine Clr Calc Pharmacy 102.5; Estimated Glomerular Filt Rate > 60; Glucose Random 173 mg/dL (60-115); Magnesium 2.1 mg/dL (1.6-2.6); Phosphorus 1.9 mg/dL (2.7-4.5); Sodium 148 mmol/L (135-145)
[2024-01-22] MEDS: Morphine Sulfate 2 MG/ML CARTRIDGE IVPUSH ×2 (22:18→23:54)
[2024-01-22] MEDS: LORazepam 2 MG/ML VIAL 1 MG IVPUSH (23:08)
[2024-01-22 23:57] LABS: Glucose, Whole Blood 174 mg/dL (60-115)
[2024-01-23] VITALS (46 sets, daily range): BP systolic 85–181; BP diastolic 46–102; PULSE 84–124; RESP 21–40; TEMP 32–38.1; O2SAT 15–100; BMI 28.6
[2024-01-23] MEDS: Potassium Chloride/H20 10 MEQ/100 ML PIGGYBACK 100 MEQ IV ×5 (01:07→11:36)
[2024-01-23] MEDS: Furosemide 200 MG in 0.9 % Sodium Chloride 80 ML IVCONT (02:08)
[2024-01-23] MEDS: dexAMETHasone sod phosphate 10 MG/ML VIAL IVPUSH ×2 (02:09→08:00)
[2024-01-23] MEDS: fentaNYL citrate/PF 100 MCG/2 ML VIAL IVPUSH (02:19)
[2024-01-23 02:42] LABS: VBG Base Excess 1.9 mmol/L; VBG HCO3 25 mmol/L (22-26); VBG pCO2 36 mmHg; VBG pH 7.45 (7.32-7.43); VBG pO2 84 mmHg
[2024-01-23 02:43] LABS: Basophils Absolute Auto 0.1 X10*3/uL (0.0-0.2); Basophils Percent Auto 0.2 % (0-2); Hematocrit 25.3 % (42.0-52.0); Hemoglobin 7.8 g/dl (14.0-18.0); Imm Gran Abs Auto 1.34 X10*3/uL (0.00-0.03); Lymphocytes Absolute Auto 1.3 X10*3/uL (1.2-4.9); Lymphocytes Percent Auto 3.9 % (20-40); MANUAL DIFF FLAG SCAN; Mean Corpuscular HGB Conc 30.8 g/dl (31.0-36.0); Mean Corpuscular Volume 77.8 fL (80.0-98.0); Mean Platelet Volume 9.3 fL (9.4-12.4); NRBC Pct Auto 0.1 /100WBC (0.0-0.2); Neutrophils Percent Auto 88.9 % (45-73); Platelet Count 345 X10*3/uL (160-400); Red Blood Count 3.25 X10*6/uL (4.60-5.80); SCAN SMEAR FLAG 1
[2024-01-23] MEDS: levalbuterol HCL 1.25 MG/3 ML VIAL.NEB INHALE (02:45)
[2024-01-23 02:48] LABS: White Blood Count 33.7 X10*3/uL (4.8-10.8)
[2024-01-23 02:55] LABS: Prothrombin Time 66.4 SEC (10.9-12.4)
[2024-01-23 02:56] LABS: Alanine Aminotransferase 8 U/L (0-40); Albumin Level 3.6 g/dL (3.5-5.0); Alkaline Phosphatase 125 U/L (39-117); Anion Gap 20 (12-20); Aspartate Amino Transferase 78 U/L (5-37); Bilirubin Total 0.4 mg/dL (0.0-1.0); Blood Urea Nitrogen 18 mg/dL (9-16); Calcium 7.4 mg/dL (8.4-10.2); Carbon Dioxide 23 mmol/L (22-29); Chloride 108 mmol/L (96-108); Creatinine Clr Calc Pharmacy 101.2; Estimated Glomerular Filt Rate > 60; Glucose Random 206 mg/dL (60-115); Phosphorus 3.7 mg/dL (2.7-4.5); Potassium 3.6 mmol/L (3.3-5.1); Sodium 147 mmol/L (135-145); Total Protein 7.1 g/dL (6.5-8.0)
[2024-01-23 03:02] LABS: INTERNATIONAL NORM RATIO 5.7 (0.9-1.1)
[2024-01-23 03:03] LABS: SLIDE REVIEW VERIFIED
[2024-01-23] MEDS: Calcium Gluconate/NaCl,Iso-Osm 2 GM/100 ML PLAST..BAG IV (03:37)
[2024-01-23] MEDS: Ampicillin Sodium/Sulbactam Na 1.5 GM in 0.9 % Sodium Chloride 100 ML IV ×4 (03:38→21:31)
[2024-01-23] MEDS: Morphine Sulfate 2 MG/ML CARTRIDGE IVPUSH (04:24)
[2024-01-23] MEDS: Phytonadione (Vit K1) 5 MG in 0.9 % Sodium Chloride 50 ML 50.5 MG IV (04:27)
[2024-01-23] MEDS: LORazepam 2 MG/ML VIAL IVPUSH (05:16)
[2024-01-23] MEDS: Doxycycline Hyclate 100 MG in 0.9 % Sodium Chloride 250 ML 166.67 MG IV (05:33)
[2024-01-23] MEDS: Pantoprazole Sodium 40 MG/10 ML VIAL IVPUSH (05:33)
[2024-01-23] MEDS: Insulin Lispro 100 UNIT/ML 3 ML VIAL SUBCUT ×3 (05:37→17:56)
[2024-01-23 05:40] LABS: Glucose, Whole Blood 162 mg/dL (60-115)
[2024-01-23] MEDS: dexmedeTOMIDidine HCL/NS 400 MCG/100 ML INFUS..BTL 23.2 MCG IVCONT (06:00)
[2024-01-23 07:11] LABS: Venous Blood Gas Refer to POC result
[2024-01-23 07:12] LABS: ABG Base Excess 3.7 mmol/L; ABG HCO3 26 mmol/L (22-26); ABG pCO2 32 mmHg (32-45); ABG pH 7.51 (7.35-7.45); ABG pO2 191 mmHg (83-108)
[2024-01-23] MEDS: Albuterol/Iprat 2.5/0.5MG 3 ML AMPUL.NEB INHALE ×4 (08:05→22:56)
[2024-01-23] MEDS: dexmedeTOMIDidine HCL/NS 400 MCG/100 ML INFUS..BTL 32.48 MCG IVCONT (08:31)
[2024-01-23] MEDS: Norepinephrine Bitartrate/D5W 8 MG/250 ML PLAST..BAG 8.71 MG IVCONT (09:38)
[2024-01-23] MEDS: propofoL 200 MG/20 ML VIAL 100 MG IVPUSH (10:10)
[2024-01-23] MEDS: propofoL 1,000 MG/100 ML VIAL 16.72 MG IVCONT (10:13)
[2024-01-23 10:15] LABS: Venous Blood Gas Refer to POC result
[2024-01-23] MEDS: Remdesivir 100 MG in 0.9 % Sodium Chloride 230 ML 115 MG IV (10:45)
[2024-01-23 10:48] LABS: ABG Base Excess 1.5 mmol/L; ABG HCO3 25 mmol/L (22-26); ABG pCO2 38 mmHg (32-45); ABG pH 7.42 (7.35-7.45); ABG pO2 181 mmHg (83-108)
--- NOTE | 2024-01-23 10:49 | P.PCNCC_ITS ---
Procedures Date of Service Date of Service: 01/23/24 Intubation Intubation Comments: Patient with progressive respiratory distress and pulmonary aspiration on a background metastatic to the chest disease requiring emergent intubation for airway protection. Patient intubated with 7.5 cuffed ET tube under glide scope guidance with no immediate complications. Tube position verified by chest x- ray. Consent for Procedure: Emergent-no informed consent obtained Sedative: propofol Mg given: 100
--- NOTE | 2024-01-23 10:52 | PM.CCPN ---
Subjective Subjective Date of Service: 01/23/24 Interval History: 68-year-old gentleman with underlying asthma/COPD overlap syndrome, lung cancer status post lobectomy, and prostate cancer now with metastasis to bone and chest admitted on 01/21/2024 with worsening dyspnea initially requiring high-flow nasal cannula, but with worsening respiratory status thus requiring noninvasive positive pressure ventilatory support, also noted to be positive for COVID-19. Patient admitted to intensive care unit. Hospital course significant for progressive respiratory distress and pulmonary aspiration requiring intubation on 01/23/2024. CT chest demonstrate progression of underlying metastatic disease. Critical Care Time (minutes): 90 Physical Exam Vital Signs: Vital Signs: Last Vital Signs Temp 99.0 F 01/23/24 10:00 Pulse 116 H 01/23/24 10:00 Resp 28 H 01/23/24 10:00 BP 152/92 H 01/23/24 10:00 Pulse Ox 93 01/23/24 10:00 O2 Del Method BiPAP 01/23/24 10:00 O2 Flow Rate 60 01/22/24 15:00 FiO2 50 01/23/24 10:26 BMI result Body Mass Index 28.6 Const: General: no acute distress and other (Sedated on ventilatory support) Eyes: Sclerae: sclerae normal EOM: EOMs intact bilaterally Neck: Neck: Yes no lymphadenopathy, Yes trachea midline and Yes supple Resp: Auscultation: crackles (Diffuse bilateral) Cardio: Rate: regular rate Rhythm: regular rhythm Heart sounds: no gallops, no murmurs and no rubs GI: Palpation (GI): Soft to palpation and Other GI palpation findings present ( Nontender) Auscultation: normal bowel sounds Extrem: General: No clubbing, No cyanosis and Yes edema (Trace bilateral) Objective Data Labs 01/23/24 02:37 01/23/24 02:37 Labs: Laboratory Results - last 24 hr 01/22/24 01/22/24 01/22/24 12:07 15:35 17:24 WBC RBC Hgb Hct MCV MCH MCHC RDW Plt Count MPV Immature Gran % (Auto) Neut % (Auto) Lymph % (Auto) [place] % (Auto) Eos % (Auto) Baso % (Auto) Lymph # (Auto) [place] # (Auto) Eos # (Auto) Baso # (Auto) Abs Immat Gran (auto) Absolute Neuts (auto) Absolute Nucleated RBC Nucleated RBC % (auto) Smear Tech's Comments PT INR O2 Saturation ABG pH at Pt Temp ABG pCO2 at Pt Temp ABG pO2 at Pt Temp ABG HCO3 ABG Base Excess (Actual) VBG pH VBG pCO2 VBG pO2 VBG HCO3 VBG O2 Saturation VBG Base Excess Sodium 147 H Potassium 2.8 L* Chloride 108 Carbon Dioxide 24 Anion Gap 18 BUN 13 Creatinine 0.81 Estim Creat Clear Calc 98.7 Estimated GFR > 60 POC Glucose 212 H 168 H Random Glucose 205 H Calcium 7.5 L Phosphorus 2.5 L Magnesium 2.0 Total Bilirubin AST ALT Alkaline Phosphatase Total Protein Albumin Blood Type Antibody Screen 01/22/24 01/22/24 01/23/24 18:04 23:51 02:31 WBC RBC Hgb Hct MCV MCH MCHC RDW Plt Count MPV Immature Gran % (Auto) Neut % (Auto) Lymph % (Auto) [place] % (Auto) Eos % (Auto) Baso % (Auto) Lymph # (Auto) [place] # (Auto) Eos # (Auto) Baso # (Auto) Abs Immat Gran (auto) Absolute Neuts (auto) Absolute Nucleated RBC Nucleated RBC % (auto) Smear Tech's Comments PT INR O2 Saturation ABG pH at Pt Temp ABG pCO2 at Pt Temp ABG pO2 at Pt Temp ABG HCO3 ABG Base Excess (Actual) VBG pH 7.45 H VBG pCO2 36 VBG pO2 84 VBG HCO3 25 VBG O2 Saturation 97.0 VBG Base Excess 1.9 Sodium 148 H Potassium 3.0 L Chloride 110 H Carbon Dioxide 28 Anion Gap 13 BUN 15 Creatinine 0.78 Estim Creat Clear Calc 102.5 Estimated GFR > 60 POC Glucose 174 H Random Glucose 173 H Calcium 7.8 L Phosphorus 1.9 L Magnesium 2.1 Total Bilirubin AST ALT Alkaline Phosphatase Total Protein Albumin Blood Type A Positive Antibody Screen NEGATIVE 01/23/24 01/23/24 01/23/24 02:37 05:35 07:05 WBC 33.7 H* RBC 3.25 L Hgb 7.8 L Hct 25.3 L MCV 77.8 L MCH 24.0 L MCHC 30.8 L RDW 19.0 H Plt Count 345 MPV 9.3 L Immature Gran % (Auto) 4.0 H Neut % (Auto) 88.9 H Lymph % (Auto) 3.9 L [place] % (Auto) 3.0 Eos % (Auto) 0.0 Baso % (Auto) 0.2 Lymph # (Auto) 1.3 [place] # (Auto) 1.0 Eos # (Auto) 0.0 Baso # (Auto) 0.1 Abs Immat Gran (auto) 1.34 H Absolute Neuts (auto) 30.0 H Absolute Nucleated RBC 0.020 H Nucleated RBC % (auto) 0.1 Smear Tech's Comments VERIFIED PT 66.4 H D INR 5.7 H* D O2 Saturation 99.0 ABG pH at Pt Temp 7.51 H ABG pCO2 at Pt Temp 32 ABG pO2 at Pt Temp 191 H ABG HCO3 26 ABG Base Excess (Actual) 3.7 VBG pH VBG pCO2 VBG pO2 VBG HCO3 VBG O2 Saturation VBG Base Excess Sodium 147 H Potassium 3.6 Chloride 108 Carbon Dioxide 23 Anion Gap 20 BUN 18 H Creatinine 0.79 Estim Creat Clear Calc 101.2 Estimated GFR > 60 POC Glucose 162 H Random Glucose 206 H Calcium 7.4 L Phosphorus 3.7 Magnesium 2.0 Total Bilirubin 0.4 AST 78 H ALT 8 Alkaline Phosphatase 125 H Total Protein 7.1 Albumin 3.6 Blood Type Antibody Screen 01/23/24 10:37 WBC RBC Hgb Hct MCV MCH MCHC RDW Plt Count MPV Immature Gran % (Auto) Neut % (Auto) Lymph % (Auto) [place] % (Auto) Eos % (Auto) Baso % (Auto) Lymph # (Auto) [place] # (Auto) Eos # (Auto) Baso # (Auto) Abs Immat Gran (auto) Absolute Neuts (auto) Absolute Nucleated RBC Nucleated RBC % (auto) Smear Tech's Comments PT INR O2 Saturation 100.0 ABG pH at Pt Temp 7.42 ABG pCO2 at Pt Temp 38 ABG pO2 at Pt Temp 181 H ABG HCO3 25 ABG Base Excess (Actual) 1.5 VBG pH VBG pCO2 VBG pO2 VBG HCO3 VBG O2 Saturation VBG Base Excess Sodium Potassium Chloride Carbon Dioxide Anion Gap BUN Creatinine Estim Creat Clear Calc Estimated GFR POC Glucose Random Glucose Calcium Phosphorus Magnesium Total Bilirubin AST ALT Alkaline Phosphatase Total Protein Albumin Blood Type Antibody Screen Microbiology Microbiology Results: Microbiology 01/21/24 04:03 Blood - Venous Blood Culture - Preliminary No growth after 48 hours. 01/21/24 04:03 Blood - Venous Blood Culture - Preliminary No growth after 48 hours. Progress Note: A&P Assessment and plan (1) Prostate cancer metastatic to bone: Status: Acute (2) COVID-19: Status: Acute (3) COPD (chronic obstructive pulmonary disease): Status: Acute (4) Asthma: Status: Acute (5) Acute and chronic respiratory failure with hypoxia: Status: Acute Plan Assessment: 68-year-old gentleman with underlying progressive metastatic disease with likely prostate so admitted with acute on chronic respiratory failure secondary to COVID-19, now requiring ventilatory support Plan: Neuro: No acute issues. Cardiac: No acute issues. Pulmonary: Acute hypoxic respiratory failure secondary to combination of progressive metastatic disease and COVID-19 now requiring ventilatory support, continue to titrate off as tolerated. Renal: No acute issues. Endo: No acute issues. GI: No acute issues. ID: COVID-19 with significant hypoxia, continue systemic glucocorticoids, remdesivir, and empiric antibiotics. Heme/Onc: Progressive metastatic disease to lung/chest wall and bone. Psych: No acute issues. Miscellaneous: No acute issues. Prophylaxis: Lovenox ppi Diet: Tube feeds Critical care time spent: 90 minutes Quality Stroke Does the patient have a stroke diagnosis?: No VTE Prior VTE?: No VTE Risk Level:: Medical - moderate - high VTE Device Contraindication: N/A - Device Ordered VTE Drug Contraindication: N/A - Med Ordered
--- NOTE | 2024-01-23 11:05 | PC.NURSE ---
Assumed care at 0700- pt. on bipap 14/8 60%. Pt. on precedex gtt, arousable to name, minimally tracking and following commands- pt. confused and intermittently attempting to pull at tubes/lines, disrobe, and get out of bed. Pt. observed to have dilated right pupil, unreactive to light. Left pupil sluggish put reactive to light- MD notified. Precedex titrated per APR per MD verbal order. On arousal pt in respiratory distress as evidenced by increased RR 30s-40s, labored/belly breathing using accessory muscles, B/L LS with rhonchi and wheezing, O2 sats 88-92%. MD and RT notified and at bedside. Pt SBPs 80s with MAPs <65- Norepinephrine gtt started and titrated per APR. Decision made by MD to intubate. 100mg propofol IVP given, Pt intubated at 1011 with 7.5 ETT 26cm at the bottom lip. OGT placed by this RN. ETT and OGT placement verified via CXR- see report. Propofol gtt started and titrated per APR. B/L soft wrist restraints ordered by MD and in placed. Family called and updated by MD. Current VS HR 91, BP 99/55 (70), O2 90% on PC RR 14 18/5 30% FiO2. Bed locked and in lowest position, avasys camera in room. Hovermat system in place and Q2 repositioning and oral care performed.
[2024-01-23 11:29] LABS: Glucose, Whole Blood 190 mg/dL (60-115)
[2024-01-23] MEDS: propofoL 1,000 MG/100 ML VIAL 27.87 MG IVCONT ×4 (12:40→23:11)
[2024-01-23] MEDS: Chlorhexidine Gluc Oral Rinse 15 ML MOUTHWASH BUCCAL ×2 (14:38→21:31)
[2024-01-23 17:58] LABS: Glucose, Whole Blood 191 mg/dL (60-115)
[2024-01-23 19:13] LABS: Anion Gap 19 (12-20); Blood Urea Nitrogen 24 mg/dL (9-16); Calcium 7.4 mg/dL (8.4-10.2); Carbon Dioxide 25 mmol/L (22-29); Chloride 109 mmol/L (96-108); Estimated Glomerular Filt Rate > 60; Glucose Random 210 mg/dL (60-115); Magnesium 1.9 mg/dL (1.6-2.6); Potassium 2.9 mmol/L (3.3-5.1); Sodium 150 mmol/L (135-145)
[2024-01-23] MEDS: Potassium Chloride Packet 20 MEQ PACKET 60 MEQ PO (19:44)
[2024-01-23] MEDS: Potassium Phosphate/NS 15 MMOL/250 ML PLAST..BAG 62.5 MMOL IV (19:45)
[2024-01-23 20:51] LABS: ABG Refer to POC result
[2024-01-23] MEDS: fentaNYL citrate/NS 1,000 MCG/100 ML PLAST..BAG 2.5 MCG IVCONT (21:29)
[2024-01-24] VITALS (37 sets, daily range): BP systolic 91–168; BP diastolic 46–75; PULSE 74–97; RESP 12–25; TEMP 32–38.6; O2SAT 3–100; BMI 28.5
[2024-01-24] MEDS: Furosemide 200 MG in 0.9 % Sodium Chloride 80 ML IVCONT (00:10)
[2024-01-24 00:11] LABS: Glucose, Whole Blood 237 mg/dL (60-115)
[2024-01-24] MEDS: Insulin Lispro 100 UNIT/ML 3 ML VIAL SUBCUT ×4 (00:11→18:19)
[2024-01-24] MEDS: Acetaminophen 325 MG TABLET 650 MG PO (01:09)
[2024-01-24] MEDS: propofoL 1,000 MG/100 ML VIAL 27.87 MG IVCONT ×7 (02:08→23:25)
[2024-01-24] MEDS: fentaNYL citrate/NS 1,000 MCG/100 ML PLAST..BAG 15 MCG IVCONT ×4 (03:07→22:34)
[2024-01-24] MEDS: Ampicillin Sodium/Sulbactam Na 1.5 GM in 0.9 % Sodium Chloride 100 ML IV ×4 (03:09→21:52)
[2024-01-24 05:07] LABS: VBG Base Excess 6.7 mmol/L; VBG HCO3 30 mmol/L (22-26); VBG pCO2 37 mmHg; VBG pO2 70 mmHg
[2024-01-24] MEDS: Albuterol/Iprat 2.5/0.5MG 3 ML AMPUL.NEB INHALE ×3 (05:12→20:04)
[2024-01-24 05:58] LABS: Basophils Absolute Auto 0.1 X10*3/uL (0.0-0.2); Basophils Percent Auto 0.3 % (0-2); Hematocrit 24.7 % (42.0-52.0); Hemoglobin 7.6 g/dl (14.0-18.0); Imm Gran Pct Auto 4.2 % (0.0-0.4); Lymphocytes Absolute Auto 1.7 X10*3/uL (1.2-4.9); Lymphocytes Percent Auto 6.6 % (20-40); MANUAL DIFF FLAG SCAN; Mean Corpuscular HGB Conc 30.8 g/dl (31.0-36.0); Mean Corpuscular Hemoglobin 24.1 pg (27.0-33.0); Mean Corpuscular Volume 78.4 fL (80.0-98.0); Mean Platelet Volume 9.5 fL (9.4-12.4); Monocytes Percent Auto 3.6 % (2-11); NRBC Pct Auto 0.2 /100WBC (0.0-0.2); Neutrophils Absolute Auto 22.3 x10*3/uL (2.0-8.3); Neutrophils Percent Auto 85.3 % (45-73); PLT CLUMP 1; Red Blood Count 3.15 X10*6/uL (4.60-5.80); Red Cell Distribution Width 19.7 % (11.0-16.0); SCAN SMEAR FLAG 1
[2024-01-24 06:15] LABS: Alanine Aminotransferase 21 U/L (0-40); Albumin Level 3.2 g/dL (3.5-5.0); Alkaline Phosphatase 160 U/L (39-117); Anion Gap 17 (12-20); Aspartate Amino Transferase 179 U/L (5-37); Bilirubin Total 0.4 mg/dL (0.0-1.0); Blood Urea Nitrogen 28 mg/dL (9-16); Calcium 7.1 mg/dL (8.4-10.2); Carbon Dioxide 26 mmol/L (22-29); Chloride 111 mmol/L (96-108); Creatinine Clr Calc Pharmacy 88.9; Estimated Glomerular Filt Rate > 60; Glucose Random 228 mg/dL (60-115); Magnesium 2.1 mg/dL (1.6-2.6); Phosphorus 2.3 mg/dL (2.7-4.5); Potassium 3.6 mmol/L (3.3-5.1); Sodium 150 mmol/L (135-145); Total Protein 6.5 g/dL (6.5-8.0)
[2024-01-24] MEDS: Pantoprazole Sodium 40 MG/10 ML VIAL IVPUSH (06:21)
[2024-01-24] MEDS: Enoxaparin Sodium 40 MG/0.4 ML SYRINGE SUBCUT (06:21)
[2024-01-24 06:22] LABS: Platelet Count 384 X10*3/uL (160-400); White Blood Count 26.2 X10*3/uL (4.8-10.8)
[2024-01-24 06:23] LABS: SLIDE REVIEW VERIFIED
[2024-01-24] MEDS: Norepinephrine Bitartrate/D5W 8 MG/250 ML PLAST..BAG 10.45 MG IVCONT (06:29)
[2024-01-24 06:30] LABS: Venous Blood Gas Refer to POC result
[2024-01-24] MEDS: Potassium Phosphate/NS 15 MMOL/250 ML PLAST..BAG 62.5 MMOL IV (08:28)
[2024-01-24] MEDS: dexAMETHasone sod phosphate 10 MG/ML VIAL IVPUSH (08:28)
[2024-01-24] MEDS: Chlorhexidine Gluc Oral Rinse 15 ML MOUTHWASH BUCCAL ×3 (08:28→21:52)
[2024-01-24] MEDS: Calcium Gluconate/NaCl,Iso-Osm 2 GM/100 ML PLAST..BAG IV ×2 (08:28→21:52)
--- NOTE | 2024-01-24 11:16 | P.PNCC_ITS ---
Subjective Subjective Date of Service: 01/24/24 Interval History: 68-year-old gentleman with underlying asthma/COPD overlap syndrome, lung cancer status post lobectomy, and prostate cancer now with metastasis to bone and chest admitted on 01/21/2024 with worsening dyspnea initially requiring high-flow nasal cannula, but with worsening respiratory status thus requiring noninvasive positive pressure ventilatory support, also noted to be positive for COVID-19. Patient admitted to intensive care unit. Hospital course significant for progressive respiratory distress and pulmonary aspiration requiring intubation on 01/23/2024. CT chest demonstrate progression of underlying metastatic disease. Required intubation on 01/23/2024 for airway protection on background of acute hypoxic respiratory failure. No events overnight. Critical Care Time (minutes): 60 Physical Exam 2 Vital Signs: Vital Signs: Last Vital Signs Temp 99.7 F 01/24/24 11:00 Pulse 75 01/24/24 11:00 Resp 15 01/24/24 11:00 BP 113/56 L 01/24/24 11:00 Pulse Ox 93 01/24/24 11:00 O2 Del Method Mechanical Ventil ation 01/24/24 11:00 O2 Flow Rate 30 01/23/24 16:00 FiO2 30 01/24/24 11:00 BMI result Body Mass Index 28.5 Const: General: no acute distress and other (Sedated on ventilatory support) Eyes: Sclerae: sclerae normal EOM: EOMs intact bilaterally Neck: Neck: Yes no lymphadenopathy, Yes trachea midline and Yes supple Resp: Auscultation: crackles (Bilateral) Cardio: Rate: regular rate Rhythm: regular rhythm Heart sounds: no gallops, no murmurs and no rubs GI: Palpation (GI): Soft to palpation and Other GI palpation findings present ( Nontender) Auscultation: normal bowel sounds Extrem: General: Yes no pedal edema, No clubbing and No cyanosis Objective Data Labs 01/24/24 04:54 01/24/24 04:54 Labs: Laboratory Results - last 24 hr 01/23/24 01/23/24 01/23/24 11:23 17:53 18:39 WBC RBC Hgb Hct MCV MCH MCHC RDW Plt Count MPV Immature Gran % (Auto) Neut % (Auto) Lymph % (Auto) [place] % (Auto) Eos % (Auto) Baso % (Auto) Lymph # (Auto) [place] # (Auto) Eos # (Auto) Baso # (Auto) Abs Immat Gran (auto) Absolute Neuts (auto) Absolute Nucleated RBC Nucleated RBC % (auto) Smear Tech's Comments VBG pH VBG pCO2 VBG pO2 VBG HCO3 VBG O2 Saturation VBG Base Excess Sodium 150 H Potassium 2.9 L* Chloride 109 H Carbon Dioxide 25 Anion Gap 19 BUN 24 H Creatinine 0.86 Estim Creat Clear Calc 93.0 Estimated GFR > 60 POC Glucose 190 H 191 H Random Glucose 210 H Calcium 7.4 L Phosphorus 2.0 L Magnesium 1.9 Total Bilirubin AST ALT Alkaline Phosphatase Total Protein Albumin 01/24/24 01/24/24 01/24/24 00:07 04:54 04:56 WBC 26.2 H RBC 3.15 L Hgb 7.6 L Hct 24.7 L MCV 78.4 L MCH 24.1 L MCHC 30.8 L RDW 19.7 H Plt Count 384 MPV 9.5 Immature Gran % (Auto) 4.2 H Neut % (Auto) 85.3 H Lymph % (Auto) 6.6 L [place] % (Auto) 3.6 Eos % (Auto) 0.0 Baso % (Auto) 0.3 Lymph # (Auto) 1.7 [place] # (Auto) 1.0 Eos # (Auto) 0.0 Baso # (Auto) 0.1 Abs Immat Gran (auto) 1.10 H Absolute Neuts (auto) 22.3 H Absolute Nucleated RBC 0.050 H Nucleated RBC % (auto) 0.2 Smear Tech's Comments VERIFIED VBG pH 7.50 H VBG pCO2 37 VBG pO2 70 VBG HCO3 30 H VBG O2 Saturation 93.0 VBG Base Excess 6.7 Sodium 150 H Potassium 3.6 D Chloride 111 H Carbon Dioxide 26 Anion Gap 17 BUN 28 H Creatinine 0.90 Estim Creat Clear Calc 88.9 Estimated GFR > 60 POC Glucose 237 H Random Glucose 228 H Calcium 7.1 L Phosphorus 2.3 L Magnesium 2.1 Total Bilirubin 0.4 AST 179 H ALT 21 Alkaline Phosphatase 160 H Total Protein 6.5 Albumin 3.2 L Microbiology Microbiology Results: Microbiology 01/23/24 16:34 Sputum - Suctioned Gram Stain - Preliminary 01/23/24 16:34 Sputum - Suctioned Sputum Culture - Preliminary Culture in progress. 01/21/24 04:03 Blood - Venous Blood Culture - Preliminary No growth after 48 hours. 01/21/24 04:03 Blood - Venous Blood Culture - Preliminary No growth after 48 hours. Progress Note: A&P Assessment and plan (1) Prostate cancer metastatic to bone: Status: Acute (2) COPD (chronic obstructive pulmonary disease): Status: Acute (3) COVID: Status: Acute (4) Acute and chronic respiratory failure with hypoxia: Status: Acute Plan Assessment: 68-year-old gentleman with underlying progressive metastatic disease with likely prostate so admitted with acute on chronic respiratory failure secondary to COVID-19, now requiring ventilatory support Plan: Neuro: No acute issues. Cardiac: No acute issues. Pulmonary: Acute hypoxic respiratory failure secondary to combination of progressive metastatic disease and COVID-19 now requiring ventilatory support, continue to titrate off as tolerated. Renal: No acute issues. Endo: No acute issues. GI: No acute issues. ID: COVID-19 with significant hypoxia, continue systemic glucocorticoids, remdesivir, and empiric antibiotics. 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 Heme/Onc: Progressive metastatic disease to lung/chest wall and bone. Psych: No acute issues. Miscellaneous: No acute issues. Prophylaxis: Lovenox ppi Diet: Tube feeds Critical care time spent: 60 minutes Quality Stroke Does the patient have a stroke diagnosis?: No VTE Prior VTE?: No VTE Risk Level:: Medical - moderate - high VTE Device Contraindication: N/A - Device Ordered VTE Drug Contraindication: N/A - Med Ordered
[2024-01-24] MEDS: Albumin Human 25 % 100 ML IV ×3 (11:33→22:34)
[2024-01-24] MEDS: Remdesivir 100 MG in 0.9 % Sodium Chloride 230 ML 115 MG IV (11:33)
[2024-01-24 11:49] LABS: Glucose, Whole Blood 223 mg/dL (60-115)
[2024-01-24 18:17] LABS: Glucose, Whole Blood 235 mg/dL (60-115)
[2024-01-24 18:26] LABS: Anion Gap 18 (12-20); Blood Urea Nitrogen 35 mg/dL (9-16); Carbon Dioxide 26 mmol/L (22-29); Chloride 112 mmol/L (96-108); Creatinine Clr Calc Pharmacy 72.6; Estimated Glomerular Filt Rate > 60; Glucose Random 264 mg/dL (60-115); Potassium 3.9 mmol/L (3.3-5.1); Sodium 152 mmol/L (135-145)
[2024-01-24 21:35] LABS: Albumin Level 3.6 g/dL (3.5-5.0)
[2024-01-24] MEDS: Doxycycline Monohydrate 100 MG CAPSULE PO (21:52)
[2024-01-24 23:57] LABS: Glucose, Whole Blood 249 mg/dL (60-115)
[2024-01-25] VITALS (45 sets, daily range): BP systolic 96–141; BP diastolic 48–75; PULSE 67–102; RESP 15–26; TEMP 34.5–39.4; O2SAT 86–95; BMI 26.9
[2024-01-25] MEDS: Furosemide 200 MG in 0.9 % Sodium Chloride 80 ML IVCONT (00:09)
[2024-01-25] MEDS: Insulin Lispro 100 UNIT/ML 3 ML VIAL SUBCUT ×4 (00:09→17:37)
[2024-01-25] MEDS: Albuterol/Iprat 2.5/0.5MG 3 ML AMPUL.NEB INHALE ×4 (00:33→17:50)
[2024-01-25] MEDS: propofoL 1,000 MG/100 ML VIAL 27.87 MG IVCONT ×6 (02:30→19:29)
[2024-01-25] MEDS: Albumin Human 25 % 100 ML IV (04:26)
[2024-01-25] MEDS: Ampicillin Sodium/Sulbactam Na 1.5 GM in 0.9 % Sodium Chloride 100 ML IV (04:26)
[2024-01-25] MEDS: fentaNYL citrate/NS 1,000 MCG/100 ML PLAST..BAG 15 MCG IVCONT ×2 (04:59→11:33)
[2024-01-25 05:24] LABS: VBG Base Excess 11.6 mmol/L; VBG HCO3 34 mmol/L (22-26); VBG pCO2 37 mmHg; VBG pH 7.56 (7.32-7.43); VBG pO2 58 mmHg
[2024-01-25 05:26] LABS: Venous Blood Gas Refer to POC result
[2024-01-25 05:32] LABS: Basophils Percent Auto 0.2 % (0-2); Hematocrit 22.8 % (42.0-52.0); Imm Gran Abs Auto 1.12 X10*3/uL (0.00-0.03); Imm Gran Pct Auto 4.4 % (0.0-0.4); Lymphocytes Absolute Auto 1.8 X10*3/uL (1.2-4.9); Lymphocytes Percent Auto 7.3 % (20-40); MANUAL DIFF FLAG SCAN; Mean Corpuscular HGB Conc 29.4 g/dl (31.0-36.0); Mean Corpuscular Hemoglobin 23.5 pg (27.0-33.0); Mean Platelet Volume 9.6 fL (9.4-12.4); Monocytes Absolute Auto 1.1 X10*3/uL (0.1-1.2); Monocytes Percent Auto 4.5 % (2-11); NRBC Pct Auto 0.3 /100WBC (0.0-0.2); Neutrophils Absolute Auto 21.2 x10*3/uL (2.0-8.3); Neutrophils Percent Auto 83.6 % (45-73); Platelet Count 281 X10*3/uL (160-400); Red Blood Count 2.85 X10*6/uL (4.60-5.80); Red Cell Distribution Width 19.4 % (11.0-16.0); SCAN SMEAR FLAG 1; White Blood Count 25.3 X10*3/uL (4.8-10.8)
[2024-01-25 05:36] LABS: INTERNATIONAL NORM RATIO 1.5 (0.9-1.1); Prothrombin Time 17.5 SEC (10.9-12.4)
[2024-01-25 05:37] LABS: Hemoglobin 6.7 g/dl (14.0-18.0)
[2024-01-25 05:46] LABS: Albumin Level 3.9 g/dL (3.5-5.0); Anion Gap 20 (12-20); Blood Urea Nitrogen 35 mg/dL (9-16); Calcium 7.1 mg/dL (8.4-10.2); Carbon Dioxide 27 mmol/L (22-29); Chloride 109 mmol/L (96-108); Creatinine Clr Calc Pharmacy 79.9; Estimated Glomerular Filt Rate > 60; Glucose Random 199 mg/dL (60-115); Magnesium 1.9 mg/dL (1.6-2.6); Phosphorus 2.7 mg/dL (2.7-4.5); Potassium 3.6 mmol/L (3.3-5.1); Sodium 152 mmol/L (135-145)
[2024-01-25] MEDS: Pantoprazole Sodium 40 MG/10 ML VIAL IVPUSH (06:01)
[2024-01-25 06:02] LABS: SLIDE REVIEW VERIFIED
[2024-01-25] MEDS: Doxycycline Monohydrate 100 MG CAPSULE PO ×2 (07:25→21:13)
[2024-01-25] MEDS: Potassium Chloride Packet 20 MEQ PACKET 40 MEQ OG-TUBE (07:25)
[2024-01-25] MEDS: Chlorhexidine Gluc Oral Rinse 15 ML MOUTHWASH BUCCAL ×3 (07:25→21:13)
[2024-01-25] MEDS: dexAMETHasone sod phosphate 10 MG/ML VIAL IVPUSH (07:26)
[2024-01-25] MEDS: Calcium Gluconate/NaCl,Iso-Osm 2 GM/100 ML PLAST..BAG IV ×3 (07:35→23:27)
--- NOTE | 2024-01-25 08:13 | PM.CCPN ---
Subjective Subjective Date of Service: 01/25/24 Critical Care Time (minutes): 35 Physical Exam Vital Signs: Vital Signs: Last Vital Signs Temp 100.6 F H 01/25/24 08:00 Pulse 93 01/25/24 08:00 Resp 18 01/25/24 08:00 BP 121/58 L 01/25/24 08:00 Pulse Ox 90 L 01/25/24 08:00 O2 Del Method Room Air, Mechani matilde Ventilation 01/25/24 08:00 O2 Flow Rate 30 01/23/24 16:00 FiO2 45 01/25/24 08:00 BMI result Body Mass Index 26.9 General: acute distress, ill appearing and tired appearing Nutritional Appearance: well nourished and overweight Eyes: appearance normal, both eyes and all related structures; Alignment and Position: alignment normal and position normal Neck: No lymphadenopathy, no thyromegaly Resp: bilateral air entry equal, occasional added sounds present Cardio: Regular rate, regular rhythm; Heart sounds: S1 normal heart sound present and S2 normal heart sound present GI: soft, nontender, no guarding, no hepatosplenomegaly : bladder normal to inspection, bladder normal to palpation, no renal angle tenderness Skin: no rashes or lesions noted and elasticity normal Neuro: oriented to person, oriented to place, oriented to time and moves all extremities Objective Data Labs 01/25/24 05:14 01/25/24 05:14 Labs: Laboratory Results - last 24 hr 01/22/24 01/24/24 01/24/24 18:04 11:45 18:07 WBC RBC Hgb Hct MCV MCH MCHC RDW Plt Count MPV Immature Gran % (Auto) Neut % (Auto) Lymph % (Auto) [place] % (Auto) Eos % (Auto) Baso % (Auto) Lymph # (Auto) [place] # (Auto) Eos # (Auto) Baso # (Auto) Abs Immat Gran (auto) Absolute Neuts (auto) Absolute Nucleated RBC Nucleated RBC % (auto) Smear Tech's Comments PT INR VBG pH VBG pCO2 VBG pO2 VBG HCO3 VBG O2 Saturation VBG Base Excess Sodium 152 H Potassium 3.9 Chloride 112 H Carbon Dioxide 26 Anion Gap 18 BUN 35 H Creatinine 1.10 Estim Creat Clear Calc 72.6 Estimated GFR > 60 POC Glucose 223 H Random Glucose 264 H Calcium 7.0 L Phosphorus Magnesium Albumin 3.6 Blood Type A Positive Antibody Screen NEGATIVE Crossmatch See Detail 01/24/24 01/24/24 01/25/24 18:14 23:47 05:12 WBC RBC Hgb Hct MCV MCH MCHC RDW Plt Count MPV Immature Gran % (Auto) Neut % (Auto) Lymph % (Auto) [place] % (Auto) Eos % (Auto) Baso % (Auto) Lymph # (Auto) [place] # (Auto) Eos # (Auto) Baso # (Auto) Abs Immat Gran (auto) Absolute Neuts (auto) Absolute Nucleated RBC Nucleated RBC % (auto) Smear Tech's Comments PT INR VBG pH 7.56 H VBG pCO2 37 VBG pO2 58 VBG HCO3 34 H VBG O2 Saturation 90.0 VBG Base Excess 11.6 Sodium Potassium Chloride Carbon Dioxide Anion Gap BUN Creatinine Estim Creat Clear Calc Estimated GFR POC Glucose 235 H 249 H Random Glucose Calcium Phosphorus Magnesium Albumin Blood Type Antibody Screen Crossmatch 01/25/24 05:14 WBC 25.3 H RBC 2.85 L Hgb 6.7 L* Hct 22.8 L MCV 80.0 MCH 23.5 L MCHC 29.4 L RDW 19.4 H Plt Count 281 D MPV 9.6 Immature Gran % (Auto) 4.4 H Neut % (Auto) 83.6 H Lymph % (Auto) 7.3 L [place] % (Auto) 4.5 Eos % (Auto) 0.0 Baso % (Auto) 0.2 Lymph # (Auto) 1.8 [place] # (Auto) 1.1 Eos # (Auto) 0.0 Baso # (Auto) 0.0 Abs Immat Gran (auto) 1.12 H Absolute Neuts (auto) 21.2 H Absolute Nucleated RBC 0.070 H Nucleated RBC % (auto) 0.3 H Smear Tech's Comments VERIFIED PT 17.5 H D INR 1.5 H D VBG pH VBG pCO2 VBG pO2 VBG HCO3 VBG O2 Saturation VBG Base Excess Sodium 152 H Potassium 3.6 Chloride 109 H Carbon Dioxide 27 Anion Gap 20 BUN 35 H Creatinine 1.00 Estim Creat Clear Calc 79.9 Estimated GFR > 60 POC Glucose Random Glucose 199 H Calcium 7.1 L Phosphorus 2.7 Magnesium 1.9 Albumin 3.9 Blood Type Antibody Screen Crossmatch Microbiology Microbiology Results: Microbiology 01/23/24 16:34 Sputum - Suctioned Gram Stain - Preliminary 01/23/24 16:34 Sputum - Suctioned Sputum Culture - Preliminary Culture in progress. 01/21/24 04:03 Blood - Venous Blood Culture - Preliminary No growth after 48 hours. 01/21/24 04:03 Blood - Venous Blood Culture - Preliminary No growth after 48 hours. Progress Note: A&P Assessment and plan (1) Non-small cell carcinoma of lung: Status: Acute (2) Metastatic malignant neoplasm to prostate: Status: Acute (3) Acute and chronic respiratory failure with hypoxia: Status: Acute (4) Shock: Status: Acute (5) Acute encephalopathy: Status: Acute Plan 68-year-old gentleman with past medical history of asthma/COPD overlap syndrome, lung cancer status post lobectomy, and prostate cancer now with metastasis to bone and chest admitted to medical ICU due to acute respiratory failure secondary to COVID-19 and worsening metastasis disease in the lung needing intubation and ventilator support Neuro: Acute encephalopathy possibly due to metabolic encephalopathy On propofol for sedation, fentanyl drip for analgesia; after placing the chest tube we will turn off of Fentanyl and add precedex Close neurological status monitoring in the ICU every hour Cardiac: Shock: Possibly secondary to severe sepsis and positive pressure ventilation On Levophed support, titrate Levophed to keep map above 65 mm Hg bedside echo showing normal LV systolic function, normal sized RV, IVC 1.48cms collapsing Respiratory: Acute hypoxemic respiratory failure due to COVID 19 pneumonia and metastatic lung disease s/p left lower lobe lobectomy in August Currently on ventilator support On PRVC mode FiO2 45%, PEEP5, TV 400, RR 20 Peak pressures and plateau pressures are under the curve Ventilator management bundle with head end elevation, aspiration precaution, chlorhexidine mouthwash, daily awakening trials, daily spontaneous breathing trials bedside ultrasound shows B lines in anterior lung lai, large right sided pleural effusion for which we will place a chest tube. GI: continue tube feeds Renal: creatinine normal We will closely monitor I's and O's Avoid nephrotoxic medications Hypernatremia: We will add free water flushes Urine output 4400 mL in 24 hours will stop lasix drip Hypocalcemia: 7.1 this morning replacing as per protocol Heme: Chronic anemia, closely monitor H&H, transfuse for hemoglobin less than 7 grams/deciliter Had coagulopathy with INR around 5 and today has drop in hemoglobin needing 1 unit of PRBC transfusion. INR corrected to 1.5 Endocrine: Blood sugars under control Sliding scale insulin as needed Infectious disease: sputum cultures positive for pseudomonas on amp sulbactum will change to Zosyn given pseudomonas continue doxycycline COVID 19 pneumonia: on dexamethasone, doxycycline and remdesivir. Monitor LFT and RFT while on remdesvir Musculoskeletal: Decubitus ulcer prevention protocol Lines: peripheral Prophylaxis: Lovenox, pantoprazole This patient is critically ill and has multiple organ failures including acure respiratory failure, shock, encephalopathy. Total critical care time spent is about 45 minutes on ventilator management, sedation management, changing sedation drips, vasopressor management, bedisde ECHO and ultrasound to guide hemodynamic monitoring and management, chart review, review of labs and images and this time is excluding all procedure time. Quality Stroke Does the patient have a stroke diagnosis?: No VTE Prior VTE?: No VTE Risk Level:: Medical - moderate - high VTE Device Contraindication: N/A - Device Ordered VTE Drug Contraindication: N/A - Med Ordered
[2024-01-25] MEDS: Remdesivir 100 MG in 0.9 % Sodium Chloride 230 ML 115 MG IV (09:41)
[2024-01-25] MEDS: Piperacillin Sodium/Tazobactam 4.5 GM in 0.9 % Sodium Chloride 100 ML IV ×3 (10:02→21:14)
[2024-01-25 11:35] LABS: Glucose, Whole Blood 236 mg/dL (60-115)
--- NOTE | 2024-01-25 11:47 | W.PM.CCHP ---
Procedures Date of Service Date of Service: 01/25/24 Chest Tube Chest Tube 1: Chest tube location: Mid-Axillary Chest Size of tube: 14 Chest tube procedure: Yes betadine prep and sterile drapes applied Tube sutured to skin: Yes Sterile dressing applied: Yes Post procedure: sutured to skin Mortensen of air heard: No Tube Drainage: fluid Amount of initial drainage (ml): 200 Post procedure CXR?: Yes Patient tolerated procedure: Yes
--- NOTE | 2024-01-25 12:10 | HO.WOUND ---
Wound Consult: Initial / Chart review 68yr old male?admitted to [facility] on 01/21/24 - See progress notes and H&P for detailed history.? Wound consult placed for Gluteal Crease wound POA.? Patient is sedated and remains in ICU level of care - photo review and chart review for this note - will follow up for direct skin assessment future time and date. Gluteal Crease - Sacrum Etiology: ??Unstageable Pressure Injury Present on Admission Wound Bed: scattered areas along suspected gluteal fold with full thickness tissue loss and adherent yellow slough obscuring observation of wound bed - given location and linear presentation suspect Moisture plays part in wound development Drainage / Odor: Unknown at this time Edges: ? Linear Tessie wound: red tissue and hyperpigmented tissue noted Goals of Treatment: ? Off Load Pressure and Triad and Foam dressing to aid in autolytic debridement Recommendations: 1. Turn and Reposition every 2 hours and as needed for patient comfort.? Use pillows or wedges to support off loading positions. 2. Off Load all bony prominences with use of pillows and heel boots if needed.? Apply Preventative foams where needed. ? 3. Monitor for incontinence and moisture control, use barrier creams when needed for prevention and treatment. 4. Provide adequate and supplemental nutrition.? 5. Continue low air loss mattress. 6. When applicable maintain blood glucose levels per Providers order. 7. Gluteal Crease and Sacrum - Off Load Pressure? - Cleanse with PH balance spray or wipes, pat dry. ?Apply thin layer of Triad to wound bed. Do not remove all of paste between applications as this may cause further skin damage.? Cover with foam dressing to aid in off loading and protection from friction. Change every 3 days and PRN. Re-consult wound care Nurse for wound deterioration or wound changes.
[2024-01-25 13:07] LABS: MN% 44.5 %; PMN% 55.5 %; WBC Pleural Fluid 1.541 X10*3/uL
[2024-01-25] MEDS: dexmedeTOMIDidine HCL/NS 400 MCG/100 ML INFUS..BTL 21.88 MCG IVCONT ×3 (13:26→21:13)
[2024-01-25 13:48] LABS: BF Shift QC OK YES; Man Diluent Bkgrd OK YES; Monocytes Pleural Fluid 20 %; Other Cells Plerual Fl 7 %
[2024-01-25 13:49] LABS: Lymphocytes Pleural Fluid 23 %; Neutrophils Pleural Fluid 50 %
--- NOTE | 2024-01-25 15:33 | MHC.CM.PN ---
EMR REVIEWED AND PER MD ROUNDS, PT REMAINS ON VENTILATORY SUPPORT. PT WILL HAVE A CHEST TUBE PLACED TODAY. COVID +. CM WILL CONTINUE TO FOLLOW FOR PLAN.
[2024-01-25] MEDS: Acetaminophen 325 MG TABLET 650 MG PO (15:37)
[2024-01-25 17:25] LABS: Glucose, Whole Blood 195 mg/dL (60-115)
[2024-01-25 20:38] LABS: MANUAL DIFF FLAG NO
[2024-01-25 20:40] LABS: Basophils Percent Auto 0.1 % (0-2); Hematocrit 26.4 % (42.0-52.0); Hemoglobin 8.1 g/dl (14.0-18.0); Imm Gran Abs Auto 0.54 X10*3/uL (0.00-0.03); Imm Gran Pct Auto 2.8 % (0.0-0.4); Lymphocytes Absolute Auto 1.6 X10*3/uL (1.2-4.9); Lymphocytes Percent Auto 7.9 % (20-40); Mean Corpuscular HGB Conc 30.7 g/dl (31.0-36.0); Mean Corpuscular Hemoglobin 24.6 pg (27.0-33.0); Mean Corpuscular Volume 80.2 fL (80.0-98.0); Mean Platelet Volume 9.6 fL (9.4-12.4); Monocytes Absolute Auto 0.8 X10*3/uL (0.1-1.2); Monocytes Percent Auto 4.3 % (2-11); NRBC Pct Auto 0.4 /100WBC (0.0-0.2); Neutrophils Absolute Auto 16.7 x10*3/uL (2.0-8.3); Neutrophils Percent Auto 84.9 % (45-73); Platelet Count 243 X10*3/uL (160-400); Red Blood Count 3.29 X10*6/uL (4.60-5.80); White Blood Count 19.6 X10*3/uL (4.8-10.8)
[2024-01-25 20:54] LABS: Alanine Aminotransferase 28 U/L (0-40); Albumin Level 3.5 g/dL (3.5-5.0); Alkaline Phosphatase 159 U/L (39-117); Anion Gap 14 (12-20); Aspartate Amino Transferase 133 U/L (5-37); Bilirubin Total 0.6 mg/dL (0.0-1.0); Blood Urea Nitrogen 32 mg/dL (9-16); Calcium 6.8 mg/dL (8.4-10.2); Carbon Dioxide 29 mmol/L (22-29); Chloride 110 mmol/L (96-108); Creatinine Clr Calc Pharmacy 80.4; Estimated Glomerular Filt Rate > 60; Glucose Random 192 mg/dL (60-115); Potassium 4.3 mmol/L (3.3-5.1); Sodium 149 mmol/L (135-145); Total Protein 6.3 g/dL (6.5-8.0)
[2024-01-25] MEDS: Famotidine/PF 20 MG/2 ML VIAL IVPUSH (21:13)
[2024-01-25 21:47] LABS: Magnesium 1.9 mg/dL (1.6-2.6); Phosphorus 3.1 mg/dL (2.7-4.5)
[2024-01-25 22:03] LABS: Thyroid Stimulating Hormone 0.01 uIU/mL (0.32-4.0); Vitamin D 25-OH Total 12.6 ng/mL (>30)
[2024-01-25 22:11] LABS: T4 Thyroxine 5.1 ug/dL (4.5-12.0)
[2024-01-25] MEDS: propofoL 1,000 MG/100 ML VIAL 22.3 MG IVCONT (23:26)
[2024-01-25 23:39] LABS: Glucose, Whole Blood 193 mg/dL (60-115)
[2024-01-26] VITALS (47 sets, daily range): BP systolic 91–152; BP diastolic 45–77; PULSE 69–115; RESP 10–42; TEMP 34.8–37.8; O2SAT 90–100
[2024-01-26] MEDS: Insulin Lispro 100 UNIT/ML 3 ML VIAL SUBCUT ×3 (00:07→17:08)
[2024-01-26] MEDS: dexmedeTOMIDidine HCL/NS 400 MCG/100 ML INFUS..BTL 21.88 MCG IVCONT ×3 (01:38→09:43)
[2024-01-26] MEDS: propofoL 1,000 MG/100 ML VIAL 27.87 MG IVCONT (02:55)
[2024-01-26] MEDS: Piperacillin Sodium/Tazobactam 4.5 GM in 0.9 % Sodium Chloride 100 ML IV ×4 (03:28→20:55)
[2024-01-26] MEDS: fentaNYL citrate/NS 1,000 MCG/100 ML PLAST..BAG 2.5 MCG IVCONT (03:29)
[2024-01-26 04:28] LABS: VBG Base Excess 8.3 mmol/L; VBG HCO3 31 mmol/L (22-26); VBG pCO2 37 mmHg; VBG pH 7.52 (7.32-7.43); VBG pO2 53 mmHg
[2024-01-26 04:36] LABS: Venous Blood Gas Refer to POC result
[2024-01-26 04:47] LABS: Basophils Percent Auto 0.1 % (0-2); Hematocrit 27.8 % (42.0-52.0); Hemoglobin 8.5 g/dl (14.0-18.0); Imm Gran Abs Auto 0.67 X10*3/uL (0.00-0.03); Imm Gran Pct Auto 3.2 % (0.0-0.4); Lymphocytes Absolute Auto 1.9 X10*3/uL (1.2-4.9); Lymphocytes Percent Auto 9.1 % (20-40); MANUAL DIFF FLAG NO; Mean Corpuscular HGB Conc 30.6 g/dl (31.0-36.0); Mean Corpuscular Hemoglobin 24.6 pg (27.0-33.0); Mean Corpuscular Volume 80.3 fL (80.0-98.0); Mean Platelet Volume 9.5 fL (9.4-12.4); Monocytes Absolute Auto 0.8 X10*3/uL (0.1-1.2); Monocytes Percent Auto 3.6 % (2-11); NRBC Pct Auto 0.4 /100WBC (0.0-0.2); Neutrophils Absolute Auto 17.7 x10*3/uL (2.0-8.3); Platelet Count 255 X10*3/uL (160-400); Red Blood Count 3.46 X10*6/uL (4.60-5.80); Red Cell Distribution Width 19.1 % (11.0-16.0)
[2024-01-26] MEDS: Norepinephrine Bitartrate/D5W 8 MG/250 ML PLAST..BAG 8.71 MG IVCONT (05:06)
[2024-01-26 05:09] LABS: Alanine Aminotransferase 26 U/L (0-40); Albumin Level 3.3 g/dL (3.5-5.0); Alkaline Phosphatase 162 U/L (39-117); Anion Gap 14 (12-20); Aspartate Amino Transferase 105 U/L (5-37); Bilirubin Total 0.8 mg/dL (0.0-1.0); Blood Urea Nitrogen 31 mg/dL (9-16); Calcium 7.4 mg/dL (8.4-10.2); Carbon Dioxide 28 mmol/L (22-29); Chloride 111 mmol/L (96-108); Creatinine Clr Calc Pharmacy 88.2; Estimated Glomerular Filt Rate > 60; Glucose Random 150 mg/dL (60-115); Phosphorus 2.6 mg/dL (2.7-4.5); Potassium 4.1 mmol/L (3.3-5.1); Sodium 149 mmol/L (135-145); Total Protein 6.2 g/dL (6.5-8.0)
[2024-01-26 05:25] LABS: TSH reflex Free T4 0.03 uIU/mL (0.32-4.0); Thyroid Stimulating Hormone 0.03 uIU/mL (0.32-4.0)
[2024-01-26 06:07] LABS: Free T4 (Free Thyroxine) 0.98 ng/dL (0.71-1.85)
[2024-01-26] MEDS: Sodium,Potassium Phosphates POWD.PACK 2 PACKET PO (06:18)
[2024-01-26] MEDS: propofoL 1,000 MG/100 ML VIAL 22.3 MG IVCONT (06:19)
[2024-01-26] MEDS: Albuterol/Iprat 2.5/0.5MG 3 ML AMPUL.NEB INHALE ×4 (06:29→19:29)
[2024-01-26] MEDS: Famotidine/PF 20 MG/2 ML VIAL IVPUSH ×2 (07:48→20:47)
[2024-01-26] MEDS: dexAMETHasone sod phosphate 10 MG/ML VIAL IVPUSH (07:48)
[2024-01-26] MEDS: Chlorhexidine Gluc Oral Rinse 15 ML MOUTHWASH BUCCAL ×2 (07:48→20:47)
[2024-01-26] MEDS: Doxycycline Monohydrate 100 MG CAPSULE PO (07:49)
[2024-01-26 07:56] LABS: Albumin Pleural Fluid 1.9
[2024-01-26 07:57] LABS: Glucose Pleural Fluid 182; LDH Pleural Fluid 1902
--- NOTE | 2024-01-26 08:20 | PM.CCPN ---
Subjective Subjective Date of Service: 01/26/24 Critical Care Time (minutes): 40 Comment: continues to be on ventilator support this morning on levophed support for vasopressor labs improving Physical Exam Vital Signs: Vital Signs: Last Vital Signs Temp 98.2 F 01/26/24 08:00 Pulse 73 01/26/24 08:00 Resp 25 H 01/26/24 08:00 BP 111/56 L 01/26/24 08:00 Pulse Ox 93 01/26/24 08:00 O2 Del Method Mechanical Ventil ation 01/26/24 08:00 O2 Flow Rate 30 01/23/24 16:00 FiO2 35 01/26/24 08:00 BMI result Body Mass Index 26.9 General: In somewhat acute distress, ill appearing and tired appearing Nutritional Appearance: well nourished and overweight Eyes: appearance normal, both eyes and all related structures; Alignment and Position: alignment normal and position normal Neck: No lymphadenopathy, no thyromegaly Resp: bilateral air entry equal, bilateral crackles heard, chest tube in place Cardio: Regular rate, regular rhythm; Heart sounds: S1 normal heart sound present and S2 normal heart sound present GI: soft, nontender, no guarding, no hepatosplenomegaly : bladder normal to inspection, bladder normal to palpation, no renal angle tenderness Skin: no rashes or lesions noted and elasticity normal Neuro: Sedated, no focal deficits Objective Data Labs 01/26/24 04:16 01/26/24 04:16 Labs: Laboratory Results - last 24 hr 01/22/24 01/25/24 01/25/24 18:04 05:14 11:28 WBC RBC Hgb Hct MCV MCH MCHC RDW Plt Count MPV Immature Gran % (Auto) Neut % (Auto) Lymph % (Auto) [place] % (Auto) Eos % (Auto) Baso % (Auto) Lymph # (Auto) [place] # (Auto) Eos # (Auto) Baso # (Auto) Abs Immat Gran (auto) Absolute Neuts (auto) Absolute Nucleated RBC Nucleated RBC % (auto) Smear Path Review SEE NOTE VBG pH VBG pCO2 VBG pO2 VBG HCO3 VBG O2 Saturation VBG Base Excess Sodium Potassium Chloride Carbon Dioxide Anion Gap BUN Creatinine Estim Creat Clear Calc Estimated GFR POC Glucose 236 H Random Glucose Calcium Phosphorus Magnesium Total Bilirubin AST ALT Alkaline Phosphatase Total Protein Albumin 25-OH Vitamin D Total TSH Free T4 Thyroxine (T4) PTH Intact Pleural pH Pleural WBC Pleural RBC Pleural Neutrophils Pleural Lymphocytes Pleural Monocytes Pleural Other Cells Pleural Albumin Pleural LDH Pleural Glucose Blood Type A Positive Antibody Screen NEGATIVE Crossmatch See Detail 01/25/24 01/25/24 01/25/24 11:54 12:04 17:20 WBC RBC Hgb Hct MCV MCH MCHC RDW Plt Count MPV Immature Gran % (Auto) Neut % (Auto) Lymph % (Auto) [place] % (Auto) Eos % (Auto) Baso % (Auto) Lymph # (Auto) [place] # (Auto) Eos # (Auto) Baso # (Auto) Abs Immat Gran (auto) Absolute Neuts (auto) Absolute Nucleated RBC Nucleated RBC % (auto) Smear Path Review VBG pH VBG pCO2 VBG pO2 VBG HCO3 VBG O2 Saturation VBG Base Excess Sodium Potassium Chloride Carbon Dioxide Anion Gap BUN Creatinine Estim Creat Clear Calc Estimated GFR POC Glucose 195 H Random Glucose Calcium Phosphorus Magnesium Total Bilirubin AST ALT Alkaline Phosphatase Total Protein Albumin 25-OH Vitamin D Total TSH Free T4 Thyroxine (T4) PTH Intact Pleural pH 7.40 Pleural WBC 1.541 Pleural RBC 0.070 Pleural Neutrophils 50 Pleural Lymphocytes 23 Pleural Monocytes 20 Pleural Other Cells 7 Pleural Albumin 1.9 Pleural LDH 1902 Pleural Glucose 182 Blood Type Antibody Screen Crossmatch 01/25/24 01/25/24 01/26/24 20:33 23:27 04:16 WBC 19.6 H 21.0 H RBC 3.29 L 3.46 L Hgb 8.1 L D 8.5 L Hct 26.4 L 27.8 L MCV 80.2 80.3 MCH 24.6 L 24.6 L MCHC 30.7 L 30.6 L RDW 19.0 H 19.1 H Plt Count 243 255 MPV 9.6 9.5 Immature Gran % (Auto) 2.8 H 3.2 H Neut % (Auto) 84.9 H 84.0 H Lymph % (Auto) 7.9 L 9.1 L [place] % (Auto) 4.3 3.6 Eos % (Auto) 0.0 0.0 Baso % (Auto) 0.1 0.1 Lymph # (Auto) 1.6 1.9 [place] # (Auto) 0.8 0.8 Eos # (Auto) 0.0 0.0 Baso # (Auto) 0.0 0.0 Abs Immat Gran (auto) 0.54 H 0.67 H Absolute Neuts (auto) 16.7 H 17.7 H Absolute Nucleated RBC 0.070 H 0.080 H Nucleated RBC % (auto) 0.4 H 0.4 H Smear Path Review VBG pH VBG pCO2 VBG pO2 VBG HCO3 VBG O2 Saturation VBG Base Excess Sodium 149 H 149 H Potassium 4.3 4.1 Chloride 110 H 111 H Carbon Dioxide 29 28 Anion Gap 14 14 BUN 32 H 31 H Creatinine 0.91 0.83 Estim Creat Clear Calc 80.4 88.2 Estimated GFR > 60 > 60 POC Glucose 193 H Random Glucose 192 H 150 H Calcium 6.8 L 7.4 L D Phosphorus 3.1 2.6 L Magnesium 1.9 2.0 Total Bilirubin 0.6 0.8 AST 133 H 105 H ALT 28 26 Alkaline Phosphatase 159 H 162 H Total Protein 6.3 L 6.2 L Albumin 3.5 3.3 L 25-OH Vitamin D Total 12.6 L TSH 0.01 L 0.03 L Free T4 0.98 Thyroxine (T4) 5.1 PTH Intact 213.0 H Pleural pH Pleural WBC Pleural RBC Pleural Neutrophils Pleural Lymphocytes Pleural Monocytes Pleural Other Cells Pleural Albumin Pleural LDH Pleural Glucose Blood Type Antibody Screen Crossmatch 01/26/24 04:17 WBC RBC Hgb Hct MCV MCH MCHC RDW Plt Count MPV Immature Gran % (Auto) Neut % (Auto) Lymph % (Auto) [place] % (Auto) Eos % (Auto) Baso % (Auto) Lymph # (Auto) [place] # (Auto) Eos # (Auto) Baso # (Auto) Abs Immat Gran (auto) Absolute Neuts (auto) Absolute Nucleated RBC Nucleated RBC % (auto) Smear Path Review VBG pH 7.52 H VBG pCO2 37 VBG pO2 53 VBG HCO3 31 H VBG O2 Saturation 83.0 VBG Base Excess 8.3 Sodium Potassium Chloride Carbon Dioxide Anion Gap BUN Creatinine Estim Creat Clear Calc Estimated GFR POC Glucose Random Glucose Calcium Phosphorus Magnesium Total Bilirubin AST ALT Alkaline Phosphatase Total Protein Albumin 25-OH Vitamin D Total TSH Free T4 Thyroxine (T4) PTH Intact Pleural pH Pleural WBC Pleural RBC Pleural Neutrophils Pleural Lymphocytes Pleural Monocytes Pleural Other Cells Pleural Albumin Pleural LDH Pleural Glucose Blood Type Antibody Screen Crossmatch Microbiology Microbiology Results: Microbiology 01/21/24 04:03 Blood - Venous Blood Culture - Final No growth after 5 days. 01/21/24 04:03 Blood - Venous Blood Culture - Final No growth after 5 days. 01/25/24 12:04 Pleural Fluid Gram Stain - Final 01/23/24 16:34 Sputum - Suctioned Gram Stain - Preliminary 01/23/24 16:34 Sputum - Suctioned Sputum Culture - Preliminary Pseudomonas species Progress Note: A&P Assessment and plan (1) Acute encephalopathy: Status: Acute (2) Acute and chronic respiratory failure with hypoxia: Status: Acute (3) Screening for AAA (abdominal aortic aneurysm): Status: Acute (4) Non-small cell carcinoma of lung: Status: Acute (5) Lung cancer: Status: Acute (6) Non-small cell cancer of left lung: Status: Acute Plan 68-year-old gentleman with past medical history of asthma/COPD overlap syndrome, lung cancer status post lobectomy, and prostate cancer now with metastasis to bone and chest admitted to medical ICU due to acute respiratory failure secondary to COVID-19 and worsening metastasis disease in the lung needing intubation and ventilator support Neuro: Acute encephalopathy possibly due to metabolic encephalopathy On propofol for sedation, Precedex for anxiolysis, tapering off Fentanyl. WIll add oxycodone to titrate off Fentanyl Close neurological status monitoring in the ICU every hour Cardiac: Shock: Possibly secondary to severe sepsis and positive pressure ventilation On Levophed support, titrate Levophed to keep map above 65 mm Hg bedside echo showing normal LV systolic function, normal sized RV, IVC 1.48cms collapsing Respiratory: Acute hypoxemic respiratory failure due to COVID 19 pneumonia and metastatic lung disease s/p left lower lobe lobectomy in August Currently on ventilator support On PRVC mode FiO2 40%, PEEP5, TV 400, RR 20 Peak pressures and plateau pressures are under the curve Ventilator management bundle with head end elevation, aspiration precaution, chlorhexidine mouthwash, daily awakening trials, daily spontaneous breathing trials We will wean the sedation as tolerated and then place the patient on pressor support for weaning trials Chest tube placed for right-sided pleural effusion which drained about 800cc of fluid. GI: continue tube feeds last BM 01/22/2024 Renal: creatinine normal We will closely monitor I's and O's Avoid nephrotoxic medications Hypernatremia: Improving, down to 149 this morning after stopping Lasix drip continue water flush [id number] Urine output 3685 mL in 24 hours, positive fluid balance 1.2 L Hypocalcemia: 7.4 this morning, PTH level increased secondary to hypocalcemia replacing as per protocol Heme: Chronic anemia, closely monitor H&H, transfuse for hemoglobin less than 7 grams/deciliter Had coagulopathy with INR around 5 and today has drop in hemoglobin needing 1 unit of PRBC transfusion. INR corrected to 1.5 Endocrine: Blood sugars under control Sliding scale insulin as needed Infectious disease: sputum cultures positive for pseudomonas on amp sulbactum will change to Zosyn given pseudomonas continue doxycycline COVID 19 pneumonia: on dexamethasone, doxycycline and remdesivir. Monitor LFT and RFT while on remdesvir Musculoskeletal: Decubitus ulcer prevention protocol wound care consult for erythema Lines: peripheral Prophylaxis: Lovenox, pantoprazole This patient is critically ill and has multiple organ failures including acure respiratory failure, shock, encephalopathy. Total critical care time spent is about 40 minutes on ventilator management, sedation management, changing sedation drips, weaning from ventilator, vasopressor management, chart review, review of labs and images and this time is excluding all procedure time. Quality Stroke Does the patient have a stroke diagnosis?: No VTE Prior VTE?: No VTE Risk Level:: Medical - moderate - high VTE Device Contraindication: N/A - Device Ordered VTE Drug Contraindication: N/A - Med Ordered
[2024-01-26] MEDS: oxyCODONE HCl Immed Release 5 MG TABLET 10 MG PO (09:28)
--- NOTE | 2024-01-26 09:41 | MHC.CLN ---
F/U PT REMAINS INTUBATED AND SEDATED PT RECEIVING PROMOTE TF AT MAX GOAL RATE 50ML/HR WITH 240ML FREE WATER FLUSHES Q 6 HRS PROVIDES 1200KCALS (1936 TOTAL KCALS WITH SEDATION; 22KCALS/KG BASED ON ACTUAL BW), 75G PROTEIN (.86G/KG), 1967ML TOTAL WATER FROM FORMULA AND FLUSHES (22ML/HR) PT WITH NEW STAGE U SACRUM WITH INCREASED NUTRITION RISK NOTED PROPOFOL DECREASED RECOMMEND INCREASING TUBE FEEDING PROMOTE AT MAX GOAL RATE 80ML/HR WITH 240ML FREE WATER FLUSHES Q 6 HRS TO PROVIDE 1920KCALS (2361KCALS WITH SEDATION; 30KCALS/KG BASED ON IBW), 120G PROTEIN (1.5G/KG), 2571ML TOTAL WATER FROM FORMULA AND FLUSHES (33ML/KG) MONITOR TOLERANCE AND LYTES
--- NOTE | 2024-01-26 11:10 | P.CDIM_ITS ---
PROVIDER RESPONSE TEXT: To clarify, the appropriate diagnosis supported by the clinical indicators: Pressure Injury sacrum Unstageable: possible QUERY TEXT: PHYSICIAN'S DOCUMENTATION REQUEST Date of Query: 01/26/2024 08:06 AM EST Patient Name: Gary Raphael Admit Date: 01/21/2024 Dear Rik Borjas MD, A review of the medical record indicates additional documentation may be needed. Please review below and update the documentation accordingly. Clinical Indicators: Wound care assessment notes 01/24 - Unstageable pressure injury sacrum, present on arrival. Off load pressure, Triad and Foam dressing. Based on the above, could you please provide further information regarding the ulcer/wound/injury: Pressure Injury sacrum Unstageable possible, probable, suspected etc. Other (explain) Clinically unable to determine (explain) Thank you, Mindy Trinidad, CCS, CDIS Use of terms such as suspected, likely, concern for, or probable (associated with a specific diagnosi s that is being evaluated, monitored, or treated as if it exists) are acceptable and can be coded in the inpatient se tting, when documented at the time of discharge. Please use your independent medical judgment in providing your response. THIS QUERY IS PART OF THE PERMANENT MEDICAL RECORD
[2024-01-26 11:39] LABS: Glucose, Whole Blood 279 mg/dL (60-115)
[2024-01-26] MEDS: fentaNYL citrate/PF 100 MCG/2 ML VIAL 50 MCG IVPUSH ×2 (11:46→21:42)
[2024-01-26] MEDS: Midazolam HCl/PF 2 MG/2 ML VIAL IVPUSH (11:52)
[2024-01-26] MEDS: Furosemide 40 MG/4 ML VIAL IVPUSH (12:08)
[2024-01-26] MEDS: dexmedeTOMIDidine HCL/NS 400 MCG/100 ML INFUS..BTL 32.81 MCG IVCONT ×4 (12:57→21:01)
[2024-01-26] MEDS: Ziprasidone Mesylate 20 MG VIAL IM (13:21)
[2024-01-26] MEDS: HYDROmorphone HCl 0.5 MG/0.5 ML SYRINGE IVPUSH (13:54)
--- NOTE | 2024-01-26 16:00 | HO.WOUND ---
Wound Consult: Attempted Follow up 68yr old male?ad[place] [facility] [place] - See progress notes and H&P for detailed history.? Wound consult follow up for Unstageable Pressure Injury to Sacrum POA.? Patient remains in ICU level of care and not stable to turn at this time as he was recently extubated. Will attempt reassessment future date and time. From previous assessment: Gluteal Crease - Sacrum Etiology: ??Unstageable Pressure Injury Present on Admission Wound Bed: scattered areas along suspected gluteal fold with full thickness tissue loss and adherent yellow slough obscuring observation of wound bed - given location and linear presentation suspect Moisture plays part in wound development Drainage / Odor: Unknown at this time Edges: ? Linear Tessie wound: red tissue and hyperpigmented tissue noted Goals of Treatment: ? Off Load Pressure and Triad and Foam dressing to aid in autolytic debridement Recommendations: 1. Turn and Reposition every 2 hours and as needed for patient comfort.? Use pillows or wedges to support off loading positions. 2. Off Load all bony prominences with use of pillows and heel boots if needed.? Apply Preventative foams where needed. ? 3. Monitor for incontinence and moisture control, use barrier creams when needed for prevention and treatment. 4. Provide adequate and supplemental nutrition.? 5. Continue low air loss mattress. 6. When applicable maintain blood glucose levels per Providers order. 7. Gluteal Crease and Sacrum - Off Load Pressure? - Cleanse with PH balance spray or wipes, pat dry. ?Apply thin layer of Triad to wound bed. Do not remove all of paste between applications as this may cause further skin damage.? Cover with foam dressing to aid in off loading and protection from friction. Change every 3 days and PRN. Re-consult wound care Nurse for wound deterioration or wound changes.
[2024-01-26 17:18] LABS: Glucose, Whole Blood 215 mg/dL (60-115)
[2024-01-26] MEDS: 0.9 % Sodium Chloride Flush 3 ML SYRINGE IVFLUSH (20:49)
--- OUTSIDE RECORDS SUMMARY | 2024-01-26 22:36 | XMS_ITS ---
Author Name [facility] Organization Unknown Results Test Name/Text Value Interpretation Date Range Source Calcium SerPl-mCnc 8.8mg/dL Normal [id number] 8.7 - 10 .5 [facility] BUN SerPl-mCnc 18mg/dL Normal [id number] 8 - 21 HH CCT Creat SerPl-mCnc 1mg/dL Normal [id number] 0.5 - 1.3 [facility] GFR/BSA.pred SerPlBld [id number] 81 Normal [id number] 59 - [facility] Chloride SerPl-sCnc 95mmol/L Below low normal [id number] 98 - 107 [facility] BUN/Creat SerPl 18Ratio Normal [id number] 10 - 25 H [facility] CO2 SerPl-sCnc 24mmol/L Normal [id number] 22 - 33 HH CCT Anion Gap Bld-sCnc 12 Normal [id number] 7 - 17 [facility] Potassium SerPl-sCnc 3.6mmol/L Normal [id number] 3.4 - 5.3 [facility] Glucose SerPl-mCnc 136mg/dL Above high normal [id number] 65 - 99 [facility] Sodium SerPl-sCnc 131mmol/L Below low normal [id number] 13 6 - 145 [facility] Neutrophils num Bld Auto 6.47Thou/uL Normal [id number] 2 - 7.5 [facility] Monocytes num Bld Auto 0.78Thou/uL Normal [id number] 0. 2 - 1.5 [facility] Eosinophil num Bld Auto 0.08Thou/uL Normal [id number] 0 - 0.7 [facility] WBC num Bld Auto 8.8Thou/uL Normal [id number] 4 - 11 [facility] MCHC RBC Auto-mCnc 31.4g/dL Normal [id number] 30 - 36 [facility] Monocytes/leuk NFr Bld Auto 8.9% Normal [id number] [facility] Hct VFr Bld Auto 29.3% Below low normal [id number] 39 - 54 [facility] RBC num Bld Auto 3.62Mil/uL Below low normal [id number] 4. 5 - 6.2 [facility] RDW RBC Auto-Rto 15.3% Above high normal 11 .5 - 14.5 [facility] PMV Bld Auto 8.6fL Normal [id number] 7.5 - 12.[address] Eosinophil/leuk NFr Bld Auto 0.9% Normal [id number] [facility] MCH RBC Qn Auto 25.4pg Below low normal [id number] 27 - 31 [facility] Basophils/leuk NFr Bld Auto 0.3% Normal [id number] [facility] Basophils num Bld Auto 0.03Thou/uL Normal [id number] 0 - 0.2 [facility] Platelet num Bld Auto 315Thou/uL Normal [id number] 150 - 450 [facility] Neutrophils/leuk NFr Bld Auto 74% Normal [id number] [facility] MCV RBC Auto 81fL Normal [id number] 80 - 100 [facility] T Lymphocytes/leuk NFr Bld Auto 14.6% Normal [id number] [facility] Lymphocytes num Bld Auto 1.28Thou/uL Below low normal [id number] 1.5 - 4.5 [facility] Imm Granulocytes/leuk NFr Bld Auto 1.3% Normal [id number] [facility] Hgb Bld-mCnc 9.2g/dL Below low normal [id number] 13 - 17 .7 [facility] Imm Granulocytes num Bld Auto 0.11Thou/uL Above high normal [id number] 0 - 0.1 [facility] Calcium SerPl-mCnc 9mg/dL Normal 8.7 - 10 .5 [facility] BUN SerPl-mCnc 16mg/dL Normal 8 - 21 HH CCT Creat SerPl-mCnc 0.9mg/dL Normal 0.5 - 1.3 [facility] GFR/BSA.pred SerPlBld PER-OIQ-RoQNwo 90 Normal 59 - [facility]CT Chloride SerPl-sCnc 97mmol/L Below low normal [id number] 98 - 107 [facility] BUN/Creat SerPl 18Ratio Normal [id number] 10 - 25 H [facility] CO2 SerPl-sCnc 25mmol/L Normal [id number] 22 - 33 HH CCT Anion Gap Bld-sCnc 13 Normal [id number] 7 - 17 [facility] Potassium SerPl-sCnc 4.5mmol/L Normal [id number] 3.4 - 5.3 [facility] Glucose SerPl-mCnc 119mg/dL Above high normal [id number] 65 - 99 [facility] Sodium SerPl-sCnc 135mmol/L Below low normal [id number] 13 6 - 145 [facility] RBC num Bld Auto 4.04Mil/uL Below low normal [id number] 4. 5 - 6.2 [facility] RDW RBC Auto-Rto 15.3% Above high normal [id number] 11 .5 - 14.5 [facility] PMV Bld Auto 8.4fL Normal [id number] 7.5 - 12.[address] MCH RBC Qn Auto 25.2pg Below low normal [id number] 27 - 31 [facility] WBC num Bld Auto 8.4Thou/uL Normal [id number] 4 - 11 [facility] Platelet num Bld Auto 297Thou/uL Normal [id number] 150 - 450 [facility] MCHC RBC Auto-mCnc 31g/dL Normal [id number] 30 - 36 [facility] Hct VFr Bld Auto 32.9% Below low normal [id number] 39 - 54 [facility] MCV RBC Auto 81fL Normal [id number] 80 - 100 [facility] T Hgb Bld-mCnc 10.2g/dL Below low normal [id number] 13 - 17 .7 [facility] Phosphate SerPl-mCnc 4.2mg/dL Normal [id number] 2.7 - 4.5 [facility] Magnesium SerPl-mCnc 1.9mg/dL Normal [id number] 1.6 - 2.7 [facility]CT Calcium SerPl-mCnc 9.3mg/dL Normal [id number] 8.7 - 10 .5 [facility] BUN SerPl-mCnc 18mg/dL Normal [id number] 8 - 21 HH CCT Creat SerPl-mCnc 1mg/dL Normal [id number] 0.5 - 1.3 [facility] GFR/BSA.pred SerPlBld TUC-ZUV-YwOLfk 81 Normal [id number] 59 - [facility]CT Chloride SerPl-sCnc 99mmol/L Normal [id number] 98 - 10 7 [facility] BUN/Creat SerPl 18Ratio Normal [id number] 10 - 25 H [facility]CT CO2 SerPl-sCnc 23mmol/L Normal [id number] 22 - 33 HH CCT Anion Gap Bld-sCnc 12 Normal [id number] 7 - 17 [facility] Potassium SerPl-sCnc 3.9mmol/L Normal [id number] 3.4 - 5.3 [facility] Glucose SerPl-mCnc 112mg/dL Above high normal [id number] 65 - 99 [facility] Sodium SerPl-sCnc 134mmol/L Below low normal [id number] 13 6 - 145 [facility] RBC num Bld Auto 3.78Mil/uL Below low normal [id number] 4. 5 - 6.2 [facility]CT RDW RBC Auto-Rto 15.3% Above high normal [id number] 11 .5 - 14.5 [facility] PMV Bld Auto 8.4fL Normal [id number] 7.5 - 12.[address] MCH RBC Qn Auto 25.4pg Below low normal [id number] 27 - 31 [facility] WBC num Bld Auto 9.6Thou/uL Normal [id number] 4 - 11 [facility] Platelet num Bld Auto 270Thou/uL Normal [id number] 150 - 450 [facility] MCHC RBC Auto-mCnc 31.4g/dL Normal [id number] 30 - 36 [facility] Hct VFr Bld Auto 30.6% Below low normal [id number] 39 - 54 [facility] MCV RBC Auto 81fL Normal [id number] 80 - 100 [facility] T Hgb Bld-mCnc 9.6g/dL Below low normal [id number] 13 - 17 .7 [facility]CT POC Glucose 129mg/dL Above high normal [id number] 65 - 99 [facility]CT Magnesium SerPl-mCnc 1.9mg/dL Normal [id number] 1.6 - 2.7 [facility]CT TSH SerPl DL<=0.005 mIU/L-aCnc 0.46mIU/L Normal [id number] 0.27 - 4.2 [facility]CT Delta Normal [id number] - 3 [facility]CT Troponin T SerPl-mCnc 13ng/L Normal [id number] - 23 [facility]CT Phosphate SerPl-mCnc 3.5mg/dL Normal [id number] 2.7 - 4.5 [facility]CT Calcium SerPl-mCnc 9.8mg/dL Normal [id number] 8.7 - 10 .5 [facility]CT BUN SerPl-mCnc 19mg/dL Normal [id number] 8 - 21 HH CCT Creat SerPl-mCnc 1.1mg/dL Normal [id number] 0.5 - 1.3 [facility]CT GFR/BSA.pred SerPlBld SNW-JTI-ZfCHqm 72 Normal [id number] 59 - HHCCT Chloride SerPl-sCnc 97mmol/L Below low normal [id number] 98 - 107 [facility]CT BUN/Creat SerPl 17Ratio Normal [id number] 10 - 25 H HCCT CO2 SerPl-sCnc 26mmol/L Normal [id number] 22 - 33 HH CCT Anion Gap Bld-sCnc 10 Normal [id number] 7 - 17 [facility]CT Potassium SerPl-sCnc 4.3mmol/L Normal [id number] 3.4 - 5.3 [facility]CT Glucose SerPl-mCnc 105mg/dL Above high normal [id number] 65 - 99 [facility]CT Sodium SerPl-sCnc 133mmol/L Below low normal [id number] 13 6 - 145 [facility]CT CK SerPl-cCnc 59U/L Normal [id number] 24 - [address] Neutrophils num Bld Auto 7.19Thou/uL Normal [id number] 2 - 7.5 [facility]CT Monocytes num Bld Auto 0.87Thou/uL Normal [id number] 0. 2 - 1.5 [facility]CT Eosinophil num Bld Auto 0.21Thou/uL Normal [id number] 0 - 0.7 [facility]CT WBC num Bld Auto 10.4Thou/uL Normal [id number] 4 - 11 [facility] MCHC RBC Auto-mCnc 31.1g/dL Normal [id number] 30 - 36 [facility] Monocytes/leuk NFr Bld Auto 8.4% Normal [id number] [facility] Hct VFr Bld Auto 32.8% Below low normal [id number] 39 - 54 [facility] RBC num Bld Auto 4.03Mil/uL Below low normal [id number] 4. 5 - 6.2 [facility] RDW RBC Auto-Rto 15.1% Above high normal [id number] 11 .5 - 14.5 [facility] PMV Bld Auto 8.4fL Normal [id number] 7.5 - 12.[address] [facility] [address] Eosinophil/leuk NFr Bld Auto 2% Normal [id number] [facility] MCH RBC Qn Auto 25.3pg Below low normal [id number] 27 - 31 [facility] Basophils/leuk NFr Bld Auto 0.3% Normal [id number] [facility] Basophils num Bld Auto 0.03Thou/uL Normal [id number] 0 - 0.2 [facility] Platelet num Bld Auto 304Thou/uL Normal [id number] 150 - 450 [facility] Neutrophils/leuk NFr Bld Auto 69.1% Normal [id number] [facility] MCV RBC Auto 81fL Normal [id number] 80 - 100 [facility] T Lymphocytes/leuk NFr Bld Auto 18.4% Normal [id number] [facility] Lymphocytes num Bld Auto 1.91Thou/uL Normal [id number] 1.5 - 4.5 [facility] Imm Granulocytes/leuk NFr Bld Auto 1.8% Normal [id number] [facility] Hgb Bld-mCnc 10.2g/dL Below low normal [id number] 13 - 17 .7 [facility] Imm Granulocytes num Bld Auto 0.19Thou/uL Above high normal [id number] 0 - 0.1 [facility] History of Medication Use Medication Directions Dispensed Refills Start Date End Date Stat dutasteride (AVODART) 0.5 MG capsule Take 1 capsule (0.5 mg total) by mouth daily. 11/05/2023 active tamsulosin (FLOMAX) 0.4 MG capsule Take 1 capsule (0.4 mg total) by mouth daily. 11/05/2023 active fluticasone (FloNASE) 50 mcg/spray nasal spray 1 spray into each nostril daily as needed for rhinitis. 11/05/2023 active bicalutamide (CASODEX) 50 MG tablet Take 1 tablet (50 mg total) by mouth daily. 11/05/2023 active acetaminophen (TYLENOL) 500 MG tablet Take 1 tablet (500 mg total) by mouth 4 times daily (every 6 hours) as needed for mild pain. 11/05/2023 active calcium carbonate (TUMS) 500 MG chewable tablet Chew 1 tablet (500 mg total) every 4 (four) hours as needed for indigestion or heartburn. 11/05/2023 active doxycycline (MONODOX) 100 MG capsule Take 1 capsule (100 mg total) by mouth 2 (two) times a day. 11/05/2023 active Problems Problem Status Onset Date Problem Type Date of Resoluti on Source Hemoptysis active 2023-10-16 ProblemAct [facility] Non-small cell cancer of left lung active 2023-10-17 ProblemAct [facility] Prostate cancer active 2023-10-17 ProblemAct [facility]
[2024-01-27] VITALS (36 sets, daily range): BP systolic 121–151; BP diastolic 55–88; PULSE 87–108; RESP 13–41; TEMP 36.4–39.4; O2SAT 88–95; BMI 26.2
[2024-01-27] MEDS: dexmedeTOMIDidine HCL/NS 400 MCG/100 ML INFUS..BTL 32.81 MCG IVCONT ×3 (00:03→05:57)
[2024-01-27] MEDS: Albuterol/Iprat 2.5/0.5MG 3 ML AMPUL.NEB INHALE ×5 (00:13→22:46)
[2024-01-27 00:20] LABS: Glucose, Whole Blood 160 mg/dL (60-115)
[2024-01-27] MEDS: Ketorolac Tromethamine 15 MG/ML VIAL IVPUSH (01:32)
[2024-01-27] MEDS: fentaNYL citrate/PF 100 MCG/2 ML VIAL 50 MCG IVPUSH ×2 (03:04→08:33)
[2024-01-27] MEDS: Piperacillin Sodium/Tazobactam 4.5 GM in 0.9 % Sodium Chloride 100 ML IV ×4 (03:11→21:53)
[2024-01-27 04:26] LABS: VBG HCO3 26 mmol/L (22-26); VBG pCO2 28 mmHg; VBG pH 7.57 (7.32-7.43); VBG pO2 61 mmHg
[2024-01-27 04:31] LABS: Hematocrit 30.5 % (42.0-52.0); Hemoglobin 9.5 g/dl (14.0-18.0); Mean Corpuscular HGB Conc 31.1 g/dl (31.0-36.0); Mean Corpuscular Hemoglobin 24.8 pg (27.0-33.0); Mean Corpuscular Volume 79.6 fL (80.0-98.0); Mean Platelet Volume 9.9 fL (9.4-12.4); NRBC Pct Auto 0.1 /100WBC (0.0-0.2); Platelet Count 256 X10*3/uL (160-400); Red Blood Count 3.83 X10*6/uL (4.60-5.80); Red Cell Distribution Width 19.9 % (11.0-16.0); White Blood Count 29.7 X10*3/uL (4.8-10.8)
[2024-01-27 04:33] LABS: Venous Blood Gas Refer to POC result
[2024-01-27 04:53] LABS: Band Neutrophils Percent 2 % (3-5); Lymphocytes Absolute Manual 1.2 X10*3/uL (1.2-4.9); Lymphocytes Percent Manual 4 % (20-40); Metamyelocytes Absolute 0.6 X10*3/uL; Metamyelocytes Percent 2 %; Neutrophils Absolute Manual 27.9 X10*3/uL (2.0-8.3); Neutrophils Percent Manual 92 % (45-73)
[2024-01-27 04:54] LABS: Alanine Aminotransferase 25 U/L (0-40); Albumin Level 3.3 g/dL (3.5-5.0); Alkaline Phosphatase 181 U/L (39-117); Anion Gap 20 (12-20); Aspartate Amino Transferase 78 U/L (5-37); Bilirubin Total 2.1 mg/dL (0.0-1.0); Blood Urea Nitrogen 32 mg/dL (9-16); Calcium 7.5 mg/dL (8.4-10.2); Carbon Dioxide 25 mmol/L (22-29); Chloride 116 mmol/L (96-108); Creatinine Clr Calc Pharmacy 78.7; Estimated Glomerular Filt Rate > 60; Glucose Random 181 mg/dL (60-115); Magnesium 2.2 mg/dL (1.6-2.6); Potassium 2.9 mmol/L (3.3-5.1); RBC Morphology NOTED; Sodium 158 mmol/L (135-145); Total Protein 6.7 g/dL (6.5-8.0)
[2024-01-27 04:55] LABS: Hypochromasia 1+ (5-14) /OIF; Microcytosis 1+ (5-14) /OIF; Platelet Estimate NORMAL (NORMAL); Platelet Morphology Comment NORMAL; Polychromasia 1+ (0-2) /OIF; Target Cells 1+ (5-14) /OIF; Tear Drop Cells 1+ (0-2) /OIF
[2024-01-27 05:47] LABS: Glucose, Whole Blood 191 mg/dL (60-115)
[2024-01-27] MEDS: Insulin Lispro 100 UNIT/ML 3 ML VIAL SUBCUT ×4 (05:51→23:14)
[2024-01-27] MEDS: Dextrose 5 % and Lactated Ring 1,000 ML 100 ML IVCONT (05:52)
[2024-01-27] MEDS: Potassium Chloride/H20 10 MEQ/100 ML PIGGYBACK 100 MEQ IV ×5 (05:56→23:14)
[2024-01-27] MEDS: Calcium Gluconate/NaCl,Iso-Osm 2 GM/100 ML PLAST..BAG IV (06:21)
[2024-01-27] MEDS: 0.9 % Sodium Chloride Flush 3 ML SYRINGE IVFLUSH ×2 (07:38→14:59)
[2024-01-27] MEDS: dexAMETHasone sod phosphate 10 MG/ML VIAL IVPUSH (08:15)
[2024-01-27] MEDS: Famotidine/PF 20 MG/2 ML VIAL IVPUSH ×2 (08:15→21:33)
[2024-01-27] MEDS: Chlorhexidine Gluc Oral Rinse 15 ML MOUTHWASH BUCCAL (08:16)
[2024-01-27] MEDS: Doxycycline Monohydrate 100 MG CAPSULE PO (08:16)
[2024-01-27 08:48] LABS: Hypersegmented Neutrophils PRESENT
--- NOTE | 2024-01-27 09:01 | P.PNCC_ITS ---
Subjective Subjective Date of Service: 01/27/24 Critical Care Time (minutes): 35 Comment: Extubated yesterday, had a tough time post extubation with signifcant tachypnea and work of breathing despite getting multiple medications. Continues to be on precedex drip due to increased work of breathing episode of fever overnight on D5LR will change to D5 due to hyprenatremia Physical Exam 2 Vital Signs: Vital Signs: Last Vital Signs Temp 99.3 F 01/27/24 08:00 Pulse 94 01/27/24 08:00 Resp 25 H 01/27/24 08:00 BP 132/60 01/27/24 08:00 Pulse Ox 89 L 01/27/24 08:00 O2 Del Method High Flow Nasal C annula 01/27/24 08:00 O2 Flow Rate 60 01/27/24 08:00 FiO2 35 01/27/24 08:00 BMI result Body Mass Index 26.2 General: acute distress, ill appearing and tired appearing Nutritional Appearance: well nourished and normal was normal weight Eyes: appearance normal, both eyes and all related structures; Alignment and Position: alignment normal and position normal Neck: No lymphadenopathy, no thyromegaly Resp: bilateral air entry equal, added sounds present bilaterally Cardio: Regular rate, regular rhythm; Heart sounds: S1 normal heart sound present and S2 normal heart sound present GI: soft, nontender, no guarding, no hepatosplenomegaly : bladder normal to inspection, bladder normal to palpation, no renal angle tenderness Skin: no rashes or lesions noted and elasticity normal Neuro: delerium+, no focal defecits, moves all extremities Objective Data Labs 01/27/24 04:11 01/27/24 04:11 Labs: Laboratory Results - last 24 hr 01/26/24 01/26/24 01/27/24 11:31 17:05 00:15 WBC RBC Hgb Hct MCV MCH MCHC RDW Plt Count MPV Immature Gran % (Auto) Neut % (Auto) Lymph % (Auto) Armstrong % (Auto) Eos % (Auto) Baso % (Auto) Lymph # (Auto) Armstrong # (Auto) Eos # (Auto) Baso # (Auto) Abs Immat Gran (auto) Absolute Neuts (auto) Absolute Nucleated RBC Nucleated RBC % (auto) Neutrophils % (Manual) Band Neutrophils % Lymphocytes % (Manual) Metamyelocytes % Abs Neuts (Manual) Lymphocytes # (Manual) Metamyelocytes # Hypersegmented Neuts Platelet Estimate Plt Morphology Comment RBC Morphology Polychromasia Hypochromasia Microcytosis Target Cells Tear Drop Cells Smear Path Review VBG pH VBG pCO2 VBG pO2 VBG HCO3 VBG O2 Saturation VBG Base Excess Sodium Potassium Chloride Carbon Dioxide Anion Gap BUN Creatinine Estim Creat Clear Calc Estimated GFR POC Glucose 279 H 215 H 160 H Random Glucose Calcium Phosphorus Magnesium Total Bilirubin AST ALT Alkaline Phosphatase Total Protein Albumin 01/27/24 01/27/24 01/27/24 04:11 04:15 05:41 WBC 29.7 H RBC 3.83 L Hgb 9.5 L Hct 30.5 L MCV 79.6 L MCH 24.8 L MCHC 31.1 RDW 19.9 H Plt Count 256 MPV 9.9 Immature Gran % (Auto) Cancelled Neut % (Auto) Cancelled Lymph % (Auto) Cancelled Armstrong % (Auto) Cancelled Eos % (Auto) Cancelled Baso % (Auto) Cancelled Lymph # (Auto) Cancelled Armstrong # (Auto) Cancelled Eos # (Auto) Cancelled Baso # (Auto) Cancelled Abs Immat Gran (auto) Cancelled Absolute Neuts (auto) Cancelled Absolute Nucleated RBC 0.030 H Nucleated RBC % (auto) 0.1 Neutrophils % (Manual) 92 H Band Neutrophils % 2 L Lymphocytes % (Manual) 4 L Metamyelocytes % 2 Abs Neuts (Manual) 27.9 H Lymphocytes # (Manual) 1.2 Metamyelocytes # 0.6 Hypersegmented Neuts PRESENT Platelet Estimate NORMAL Plt Morphology Comment NORMAL RBC Morphology NOTED Polychromasia 1+ (0-2) Hypochromasia 1+ (5-14) Microcytosis 1+ (5-14) Target Cells 1+ (5-14) Tear Drop Cells 1+ (0-2) Smear Path Review Cancelled VBG pH 7.57 H VBG pCO2 28 VBG pO2 61 VBG HCO3 26 VBG O2 Saturation 90.0 VBG Base Excess 5.0 Sodium 158 H Potassium 2.9 L* D Chloride 116 H Carbon Dioxide 25 Anion Gap 20 BUN 32 H Creatinine 0.93 Estim Creat Clear Calc 78.7 Estimated GFR > 60 POC Glucose 191 H Random Glucose 181 H Calcium 7.5 L Phosphorus 3.0 Magnesium 2.2 Total Bilirubin 2.1 H AST 78 H ALT 25 Alkaline Phosphatase 181 H Total Protein 6.7 Albumin 3.3 L Microbiology Microbiology Results: Microbiology 01/25/24 12:04 Pleural Fluid Gram Stain - Final 01/25/24 12:04 Pleural Fluid Routine Culture - Preliminary No growth to date. 01/25/24 12:04 Pleural Fluid Anaerobic Culture - Preliminary No growth to date. 01/23/24 16:34 Sputum - Suctioned Gram Stain - Final 01/23/24 16:34 Sputum - Suctioned Sputum Culture - Final Pseudomonas aeruginosa 01/21/24 04:03 Blood - Venous Blood Culture - Final No growth after 5 days. 01/21/24 04:03 Blood - Venous Blood Culture - Final No growth after 5 days. Progress Note: A&P Assessment and plan (1) Non-small cell cancer of left lung: Status: Acute (2) Non-small cell carcinoma of lung: Status: Acute (3) Metastatic malignant neoplasm to prostate: Status: Acute (4) Asthma: Status: Acute (5) Shortness of breath: Status: Acute (6) Hemoptysis: Status: Acute (7) Acute and chronic respiratory failure with hypoxia: Status: Acute Plan 68-year-old gentleman with past medical history of asthma/COPD overlap syndrome, lung cancer status post lobectomy, and prostate cancer now with metastasis to bone and chest admitted to medical ICU due to acute respiratory failure secondary to COVID-19 and worsening metastasis disease in the lung needing intubation and ventilator support Neuro: Acute encephalopathy possibly due to metabolic encephalopathy On Precedex for anxiolysis. Propofol and fentanyl has been turned off Continue oxycodone will add valproate given his significant anxiety Close neurological status monitoring in the ICU every hour Cardiac: Shock: off vasopressor support since extubation bedside echo showing normal LV systolic function, normal sized RV, IVC 1.48cms collapsing Respiratory: Acute hypoxemic respiratory failure due to COVID 19 pneumonia and metastatic lung disease s/p left lower lobe lobectomy in August Extubated yesterday, tachypnea and increased work of initially on did not do well later on switched to high-flow oxygen to ease work of breathing. Currently on 30% oxygen at 60 liters/minute. Chest tube placed for right-sided pleural effusion which drained about 1000cc of fluid. GI: continue tube feeds last BM 01/22/2024 Renal: creatinine normal We will closely monitor I's and O's Avoid nephrotoxic medications Hypernatremia: Increased to 158 today, started on D5 water Hypocalcemia: 7.4 this morning, PTH level increased secondary to hypocalcemia replacing as per protocol Heme: Chronic anemia, closely monitor H&H, transfuse for hemoglobin less than 7 grams/deciliter Had coagulopathy with INR around 5 and today has drop in hemoglobin needing 1 unit of PRBC transfusion. INR corrected to 1.5 Endocrine: Blood sugars under control Sliding scale insulin as needed Infectious disease: sputum cultures positive for pseudomonas will send repeat culture given his continuous fever and leucocytosis Zosyn given pseudomonas will switch doxycycline to levofloxacin for double coverage COVID 19 pneumonia: on dexamethasone, doxycycline and remdesivir. Monitor LFT and RFT while on remdesvir Musculoskeletal: Decubitus ulcer prevention protocol wound care consult for erythema Lines: peripheral Prophylaxis: Lovenox, pantoprazole Quality Stroke Does the patient have a stroke diagnosis?: No VTE Prior VTE?: No VTE Risk Level:: Medical - moderate - high VTE Device Contraindication: N/A - Device Ordered VTE Drug Contraindication: N/A - Med Ordered
[2024-01-27] MEDS: Dextrose 5 % 1,000 ML 100 ML IVCONT ×2 (09:25→19:30)
[2024-01-27] MEDS: oxyCODONE HCl Immed Release 5 MG TABLET 10 MG PO (09:25)
[2024-01-27] MEDS: levoFLOXacin/D5W 750 MG/150 ML PIGGYBACK 100 MG IV (09:25)
[2024-01-27] MEDS: Valproic Acid Liquid 250 MG/5 ML SOLUTION PO ×2 (09:25→14:15)
--- NOTE | 2024-01-27 09:58 | MHC.CLN ---
F/U PT EXTUBATED YESTERDAY DISCUSSED AT ROUNDS WITH PT IS CURRENTLY NPO NURSE REPORTED PT TRIED WATER AND A APPLESAUCE BUT MAY BENEFIT FROM NAVAL ENGINEER EVAL DIET NPO PENDING NAVAL ENGINEER PT WITH INCREASED NUTRITION RISK R/T PRESSURE INJURY WHEN DIET TO ADVANCE, RECOMMEND ADDING NUTRITION SUPPLEMENT TO PROMOTE WOUND HEALING FOLLOWING WITH TEAM
[2024-01-27] MEDS: dexmedeTOMIDidine HCL/NS 400 MCG/100 ML INFUS..BTL 24.06 MCG IVCONT (10:13)
--- NOTE | 2024-01-27 11:43 | HO.WOUND ---
Wound Consult: Follow up 68yr old male?admitted to [facility] [place] on 01/21/24 - See progress notes and H&P for detailed history.? Wound consult follow up for Gluteal Crease wound POA.? Patient is awake and remains in ICU level of care. 01/21/24 on admission 01/27/24 Sacrum Etiology: ?? Unstageable Pressure Injury Present on Admission Wound Bed: Dark purple nonblanchable tissue with central area of necrotic tissue note Drainage / Odor: scant serous drainage noted - no odor Edges: ?advancing Tessie wound: Dark purple maroon nonblanchable tissue Goals of Treatment: ? Off Load Pressure and Triad and Foam dressing to aid in autolytic debridement No new topical recommendations at this time will monitor Triad effects over this week since patient is overall improving at this time. Not yet ready for surgical debridement. Recommendations: 1. Turn and Reposition every 2 hours and as needed for patient comfort.? Use pillows or wedges to support off loading positions. 2. Off Load all bony prominences with use of pillows and heel boots if needed.? Apply Preventative foams where needed. ? 3. Monitor for incontinence and moisture control, use barrier creams when needed for prevention and treatment. 4. Provide adequate and supplemental nutrition.? 5. Continue low air loss mattress. 6. When applicable maintain blood glucose levels per Providers order. 7.Sacrum - Off Load Pressure? - Cleanse with PH balance spray or wipes, pat dry. ?Apply thin layer of Triad to wound bed. Do not remove all of paste between applications as this may cause further skin damage.? Cover with foam dressing to aid in off loading and protection from friction. Change every 3 days and PRN. Re-consult wound care Nurse for wound deterioration or wound changes.
[2024-01-27 12:12] LABS: Glucose, Whole Blood 290 mg/dL (60-115)
--- NOTE | 2024-01-27 13:50 | MHC.SLORD ---
Speech Language Pathology Order Status: Pt on high flow oxygen, voicing aphonic, water trials initiated but immediately discontinued d/t onset of reflexive cough, breathy and weak. Education provided to pt, dtr and ex- at bedside. Anticipate pt will be more appropriate for PO trials in short period of time. PO trials contraindicated this day. BOOTH MANAGER following closely.
[2024-01-27] MEDS: ondansetron HCL 4 MG/2 ML VIAL IVPUSH (14:59)
--- NOTE | 2024-01-27 15:49 | MHC.CM.PN ---
EMR REVIEWED AND PER MD ROUNDS, PT WAS EXTUBATED 01/25 AND IS NOW ON HF02. CM CONTINUES TO FOLLOW FOR PLAN.
[2024-01-27] MEDS: dexmedeTOMIDidine HCL/NS 400 MCG/100 ML INFUS..BTL 15.31 MCG IVCONT (15:50)
[2024-01-27 17:02] LABS: Albumin Level 3.1 g/dL (3.5-5.0); Anion Gap 16 (12-20); Aspartate Amino Transferase 95 U/L (5-37); Bilirubin Total 2.1 mg/dL (0.0-1.0); Blood Urea Nitrogen 28 mg/dL (9-16); Calcium 7.1 mg/dL (8.4-10.2); Carbon Dioxide 24 mmol/L (22-29); Chloride 114 mmol/L (96-108); Creatinine Clr Calc Pharmacy 87.1; Estimated Glomerular Filt Rate > 60; Glucose Random 276 mg/dL (60-115); Potassium 3.2 mmol/L (3.3-5.1); Sodium 151 mmol/L (135-145); Total Protein 6.2 g/dL (6.5-8.0)
[2024-01-27 17:17] LABS: Alanine Aminotransferase 35 U/L (0-40); Alkaline Phosphatase 166 U/L (39-117)
[2024-01-27 18:26] LABS: Glucose, Whole Blood 262 mg/dL (60-115)
[2024-01-27 21:40] LABS: Alanine Aminotransferase 46 U/L (0-40); Albumin Level 3.1 g/dL (3.5-5.0); Alkaline Phosphatase 162 U/L (39-117); Anion Gap 18 (12-20); Aspartate Amino Transferase 110 U/L (5-37); Bilirubin Total 1.8 mg/dL (0.0-1.0); Blood Urea Nitrogen 26 mg/dL (9-16); Calcium 7.2 mg/dL (8.4-10.2); Carbon Dioxide 24 mmol/L (22-29); Chloride 114 mmol/L (96-108); Creatinine Clr Calc Pharmacy 92.6; Estimated Glomerular Filt Rate > 60; Glucose Random 217 mg/dL (60-115); Sodium 153 mmol/L (135-145); Total Protein 6.3 g/dL (6.5-8.0)
[2024-01-27 23:19] LABS: Glucose, Whole Blood 201 mg/dL (60-115)
[2024-01-28] VITALS (34 sets, daily range): BP systolic 104–154; BP diastolic 52–77; PULSE 85–185; RESP 20–39; TEMP 36.8–37.8; O2SAT 90–96; BMI 27.0
[2024-01-28] MEDS: Potassium Chloride/H20 10 MEQ/100 ML PIGGYBACK 100 MEQ IV ×7 (00:19→12:24)
[2024-01-28] MEDS: Piperacillin Sodium/Tazobactam 4.5 GM in 0.9 % Sodium Chloride 100 ML IV ×4 (03:36→21:50)
[2024-01-28 04:20] LABS: VBG Base Excess 2.8 mmol/L; VBG HCO3 24 mmol/L (22-26); VBG pCO2 26 mmHg; VBG pH 7.56 (7.32-7.43); VBG pO2 92 mmHg
[2024-01-28 04:23] LABS: Venous Blood Gas Refer to POC result
[2024-01-28] MEDS: Dextrose 5 % 1,000 ML 100 ML IVCONT ×2 (04:38→15:24)
[2024-01-28] MEDS: dexmedeTOMIDidine HCL/NS 400 MCG/100 ML INFUS..BTL 6.56 MCG IVCONT (04:38)
[2024-01-28 04:40] LABS: Mean Corpuscular Hemoglobin 24.9 pg (27.0-33.0); Mean Corpuscular Volume 80.3 fL (80.0-98.0); Mean Platelet Volume 10.4 fL (9.4-12.4); NRBC Pct Auto 0.1 /100WBC (0.0-0.2); Platelet Count 226 X10*3/uL (160-400); Red Blood Count 3.61 X10*6/uL (4.60-5.80); Red Cell Distribution Width 20.1 % (11.0-16.0)
[2024-01-28 04:41] LABS: White Blood Count 32.6 X10*3/uL (4.8-10.8)
[2024-01-28 04:48] LABS: Alanine Aminotransferase 63 U/L (0-40); Alkaline Phosphatase 159 U/L (39-117); Anion Gap 16 (12-20); Aspartate Amino Transferase 155 U/L (5-37); Blood Urea Nitrogen 22 mg/dL (9-16); Calcium 7.1 mg/dL (8.4-10.2); Carbon Dioxide 22 mmol/L (22-29); Chloride 116 mmol/L (96-108); Creatinine Clr Calc Pharmacy 98.9; Estimated Glomerular Filt Rate > 60; Glucose Random 203 mg/dL (60-115); Potassium 3.1 mmol/L (3.3-5.1); Sodium 151 mmol/L (135-145); Total Protein 6.2 g/dL (6.5-8.0)
[2024-01-28 04:55] LABS: Band Neutrophils Percent 1 % (3-5); Lymphocytes Absolute Manual 2.3 X10*3/uL (1.2-4.9); Lymphocytes Percent Manual 7 % (20-40); Monocytes Absolute Manual 0.3 X10*3/uL (0.1-1.2); Monocytes Percent Manual 1 % (2-11); Neutrophils Percent Manual 91 % (45-73)
[2024-01-28 04:56] LABS: Microcytosis 1+ (5-14) /OIF; RBC Morphology NOTED
[2024-01-28 04:57] LABS: Hypersegmented Neutrophils PRESENT; Hypochromasia 1+ (5-14) /OIF; Platelet Estimate NORMAL (NORMAL); Platelet Morphology Comment NORMAL; Polychromasia 1+ (0-2) /OIF; Schistocytes 1+ (0-2) /OIF; Target Cells 1+ (5-14) /OIF; Tear Drop Cells 1+ (0-2) /OIF; Toxic Vacuolation PRESENT
[2024-01-28] MEDS: Insulin Lispro 100 UNIT/ML 3 ML VIAL SUBCUT ×3 (05:07→18:05)
[2024-01-28] MEDS: Albuterol/Iprat 2.5/0.5MG 3 ML AMPUL.NEB INHALE ×3 (06:12→18:34)
[2024-01-28] MEDS: 0.9 % Sodium Chloride Flush 3 ML SYRINGE IVFLUSH ×2 (07:24→15:16)
[2024-01-28] MEDS: levoFLOXacin/D5W 750 MG/150 ML PIGGYBACK 100 MG IV (08:30)
[2024-01-28] MEDS: Famotidine/PF 20 MG/2 ML VIAL IVPUSH ×2 (08:30→21:50)
[2024-01-28] MEDS: dexAMETHasone sod phosphate 10 MG/ML VIAL IVPUSH (08:30)
[2024-01-28] MEDS: fentaNYL citrate/PF 100 MCG/2 ML VIAL 50 MCG IVPUSH (08:48)
--- NOTE | 2024-01-28 08:51 | P.PNCC_ITS ---
Subjective Subjective Date of Service: 01/28/24 Critical Care Time (minutes): 35 Comment: Mental status improving, respiratory status is also improving; continues to be high-flow oxygen assist with work of breathing Physical Exam 2 Vital Signs: Vital Signs: Last Vital Signs Temp 98.8 F 01/28/24 08:00 Pulse 104 H 01/28/24 08:00 Resp 32 H 01/28/24 08:00 BP 139/69 01/28/24 08:00 Pulse Ox 94 01/28/24 07:00 O2 Del Method High Flow Nasal C annula 01/28/24 08:00 O2 Flow Rate 60 01/28/24 08:00 FiO2 40 01/28/24 08:00 BMI result Body Mass Index 27.0 General: ill appearing and tired appearing Nutritional Appearance: Okay nourished and normal weight Eyes: appearance normal, both eyes and all related structures; Alignment and Position: alignment normal and position normal Neck: No lymphadenopathy, no thyromegaly Resp: bilateral air entry equal, crackles heard in the right lung more than left lung Cardio: Regular rate, regular rhythm; Heart sounds: S1 normal heart sound present and S2 normal heart sound present GI: soft, nontender, no guarding, no hepatosplenomegaly : bladder normal to inspection, bladder normal to palpation, no renal angle tenderness Skin: no rashes or lesions noted and elasticity normal Neuro: Mental status is significantly better, no focal deficits, moves all extremities Objective Data Labs 01/28/24 04:11 01/28/24 04:11 Labs: Laboratory Results - last 24 hr 01/27/24 01/27/24 01/27/24 12:07 16:23 18:17 WBC RBC Hgb Hct MCV MCH MCHC RDW Plt Count MPV Immature Gran % (Auto) Neut % (Auto) Lymph % (Auto) [place]end[place] % (Auto) Eos % (Auto) Baso % (Auto) Lymph # (Auto) [place] # (Auto) Eos # (Auto) Baso # (Auto) Abs Immat Gran (auto) Absolute Neuts (auto) Absolute Nucleated RBC Nucleated RBC % (auto) Neutrophils % (Manual) Band Neutrophils % Lymphocytes % (Manual) Monocytes % (Manual) Abs Neuts (Manual) Lymphocytes # (Manual) Monocytes # (Manual) Hypersegmented Neuts Toxic Vacuolation Platelet Estimate Plt Morphology Comment RBC Morphology Polychromasia Hypochromasia Microcytosis Target Cells Tear Drop Cells Schistocytes VBG pH VBG pCO2 VBG pO2 VBG HCO3 VBG O2 Saturation VBG Base Excess Sodium 151 H Potassium 3.2 L Chloride 114 H Carbon Dioxide 24 Anion Gap 16 BUN 28 H Creatinine 0.84 Estim Creat Clear Calc 87.1 Estimated GFR > 60 POC Glucose 290 H 262 H Random Glucose 276 H Calcium 7.1 L Total Bilirubin 2.1 H AST 95 H ALT 35 Alkaline Phosphatase 166 H Total Protein 6.2 L Albumin 3.1 L 01/27/24 01/27/24 01/28/24 21:17 23:12 04:10 WBC RBC Hgb Hct MCV MCH MCHC RDW Plt Count MPV Immature Gran % (Auto) Neut % (Auto) Lymph % (Auto) [place] % (Auto) Eos % (Auto) Baso % (Auto) Lymph # (Auto) [place] # (Auto) Eos # (Auto) Baso # (Auto) Abs Immat Gran (auto) Absolute Neuts (auto) Absolute Nucleated RBC Nucleated RBC % (auto) Neutrophils % (Manual) Band Neutrophils % Lymphocytes % (Manual) Monocytes % (Manual) Abs Neuts (Manual) Lymphocytes # (Manual) Monocytes # (Manual) Hypersegmented Neuts Toxic Vacuolation Platelet Estimate Plt Morphology Comment RBC Morphology Polychromasia Hypochromasia Microcytosis Target Cells Tear Drop Cells Schistocytes VBG pH 7.56 H VBG pCO2 26 VBG pO2 92 VBG HCO3 24 VBG O2 Saturation 99.0 VBG Base Excess 2.8 Sodium 153 H Potassium 3.0 L Chloride 114 H Carbon Dioxide 24 Anion Gap 18 BUN 26 H Creatinine 0.79 Estim Creat Clear Calc 92.6 Estimated GFR > 60 POC Glucose 201 H Random Glucose 217 H Calcium 7.2 L Total Bilirubin 1.8 H AST 110 H ALT 46 H Alkaline Phosphatase 162 H Total Protein 6.3 L Albumin 3.1 L 01/28/24 04:11 WBC 32.6 H* RBC 3.61 L Hgb 9.0 L Hct 29.0 L MCV 80.3 MCH 24.9 L MCHC 31.0 RDW 20.1 H Plt Count 226 MPV 10.4 Immature Gran % (Auto) Cancelled Neut % (Auto) Cancelled Lymph % (Auto) Cancelled [place] % (Auto) Cancelled Eos % (Auto) Cancelled Baso % (Auto) Cancelled Lymph # (Auto) Cancelled [place] # (Auto) Cancelled Eos # (Auto) Cancelled Baso # (Auto) Cancelled Abs Immat Gran (auto) Cancelled Absolute Neuts (auto) Cancelled Absolute Nucleated RBC 0.020 H Nucleated RBC % (auto) 0.1 Neutrophils % (Manual) 91 H Band Neutrophils % 1 L Lymphocytes % (Manual) 7 L Monocytes % (Manual) 1 L Abs Neuts (Manual) 30.0 H Lymphocytes # (Manual) 2.3 Monocytes # (Manual) 0.3 Hypersegmented Neuts PRESENT Toxic Vacuolation PRESENT Platelet Estimate NORMAL Plt Morphology Comment NORMAL RBC Morphology NOTED Polychromasia 1+ (0-2) Hypochromasia 1+ (5-14) Microcytosis 1+ (5-14) Target Cells 1+ (5-14) Tear Drop Cells 1+ (0-2) Schistocytes 1+ (0-2) VBG pH VBG pCO2 VBG pO2 VBG HCO3 VBG O2 Saturation VBG Base Excess Sodium 151 H Potassium 3.1 L Chloride 116 H Carbon Dioxide 22 Anion Gap 16 BUN 22 H Creatinine 0.74 Estim Creat Clear Calc 98.9 Estimated GFR > 60 POC Glucose Random Glucose 203 H Calcium 7.1 L Total Bilirubin 2.0 H AST 155 H ALT 63 H Alkaline Phosphatase 159 H Total Protein 6.2 L Albumin 3.0 L Microbiology Microbiology Results: Microbiology 01/25/24 12:04 Pleural Fluid Gram Stain - Final 01/25/24 12:04 Pleural Fluid Routine Culture - Final No growth after 2 days 01/25/24 12:04 Pleural Fluid Anaerobic Culture - Preliminary No growth to date. 01/23/24 16:34 Sputum - Suctioned Gram Stain - Final 01/23/24 16:34 Sputum - Suctioned Sputum Culture - Final Pseudomonas aeruginosa 01/21/24 04:03 Blood - Venous Blood Culture - Final No growth after 5 days. 01/21/24 04:03 Blood - Venous Blood Culture - Final No growth after 5 days. Progress Note: A&P Assessment and plan (1) Opioid dependence: Status: Acute (2) Non-small cell cancer of left lung: Status: Acute (3) Non-small cell carcinoma of lung: Status: Acute (4) Metastatic malignant neoplasm to prostate: Status: Acute (5) Acute encephalopathy: Status: Acute (6) Acute and chronic respiratory failure with hypoxia: Status: Acute (7) COPD (chronic obstructive pulmonary disease): Status: Acute Plan 68-year-old gentleman with past medical history of asthma/COPD overlap syndrome, lung cancer status post lobectomy, and prostate cancer now with metastasis to bone and chest admitted to medical ICU due to acute respiratory failure secondary to COVID-19 and worsening metastasis disease in the lung needing intubation and ventilator support finally extubated on 01/26/2024 currently on high flow oxygen to ease work of breathing. Neuro: Acute encephalopathy possibly due to metabolic encephalopathy On Precedex for anxiolysis, weaning Precedex drip down Continue oxycodone TID, we will increase the dose due to opioid dependence, on valproate 250 mL t.i.d. for further anxiolysis Close neurological status monitoring in the ICU every hour Cardiac: Shock: off vasopressor support since extubation bedside echo showing normal LV systolic function, normal sized RV, IVC 1.48cms collapsing tachycardic and 4 beats of VT will start on metoprolol 25mg BID Respiratory: Acute hypoxemic respiratory failure due to COVID 19 pneumonia and metastatic lung disease s/p left lower lobe lobectomy in August Extubated on 01/26/2024, Currently high-flow oxygen on 30% oxygen at 60 liters/minute to assist with increased work of breathing. Chest tube placed for right-sided pleural effusion which drained about 1000cc of fluid. GI: not clear for feeds by speech, NPO with ice chips had 4 bowel movements last night Renal: creatinine normal We will closely monitor I's and O's Avoid nephrotoxic medications Hypernatremia: Sodium improved to 151, on D5 water at 75cc/hr Hypocalcemia: 7.4 this morning, PTH level increased secondary to hypocalcemia replacing as per protocol Heme: Chronic anemia, closely monitor H&H, transfuse for hemoglobin less than 7 grams/deciliter Had coagulopathy with INR around 5 and today has drop in hemoglobin needing 1 unit of PRBC transfusion. INR corrected to 1.5 Endocrine: Blood sugars under control Sliding scale insulin as needed Infectious disease: sputum cultures positive for pseudomonas White count increased to 32,000 today, repeat cultures are still pending. Has transaminitis, we will send hepatitis panel and ultrasound of liver Zosyn and levofloxacin for pseudomonas pneumonia will switch doxycycline to levofloxacin for double coverage COVID 19 pneumonia: off dexamethasone, and remdesivir. We will stop doxycycline, remdesivir due to transaminitis Musculoskeletal: Decubitus ulcer prevention protocol wound care consult for erythema Lines: peripheral Prophylaxis: Lovenox, pantoprazole Quality Stroke Does the patient have a stroke diagnosis?: No VTE Prior VTE?: No VTE Risk Level:: Medical - moderate - high VTE Device Contraindication: N/A - Device Ordered VTE Drug Contraindication: N/A - Med Ordered
[2024-01-28 10:56] LABS: Appearance Urine Clear; Color Urine Dark Yellow; Glucose Urine UA 100 mg/dL (Negative); Leukocyte Esterase Urine Negative (Negative); Nitrite Urine Negative (Negative); PH 5.5 (5.0-9.0); UMIC TRIGGER UA YES; Urine Blood Small (1+) (Negative); Urine Ketones Negative (Negative); Urine Protein 100 (2+) mg/dL (Neg-Trace)
[2024-01-28 11:20] LABS: HBS Num1 3.16 mIU/mL (0-7.99); HBc Num1 0.14 S/CO (0.00-0.79); HBsAGNum1 0.34 S/CO (0.00-0.99); Hepatitis B Core Antibody Nonreactive (Nonreactive); Hepatitis B Surface Antigen Negative (Negative); ~HepC Num1 0.13 S/CO (0.00-0.79); ~Hepatitis B Surface Antibody NONREACTIVE (Nonreactive); ~Hepatitis C Antibody Nonreactive (Nonreactive)
[2024-01-28 11:28] LABS: Glucose, Whole Blood 251 mg/dL (60-115)
[2024-01-28] MEDS: Metoprolol Tartrate 5 MG/5 ML VIAL 10 MG IVPUSH ×2 (11:30→14:08)
[2024-01-28] MEDS: HYDROmorphone HCl 0.5 MG/0.5 ML SYRINGE IVPUSH ×3 (11:30→23:13)
[2024-01-28 11:36] LABS: Bacteria Urine None Seen (None Seen); Hyaline Casts Urine 0-2 /LPF (0-2); RBC Urine 0-2 /HPF (0-2); WBC Urine 0-5 /HPF (0-5)
--- NOTE | 2024-01-28 11:42 | PC.NURSE ---
Addendum entered by Brenden Ashton RN 01/28/24 16:47: At approx 1400 while being bathed and turned, pt's HR zan to 180s. MD alerted. MD at bedside. Lopressor and dilaudid administered to no effect. Multiple doses of adenosine administered with MD at bedside and with pt attached to ZOLL monitor to no effect. MD ordered an esmolol drip to be started. Drip paused once pt's HR lowered. HR currently in 80s. See MAR for medication administration details. Original Note: Throughout the morning, pt had several small (4-9 beat) runs of svt. At 1128, pt HR in 200s. MD alerted. Lopressor and dilaudid given per MAR. MD at bedside. At 1135, pt HR returned to 90s.
--- NOTE | 2024-01-28 11:49 | P.CDIM_ITS ---
PROVIDER RESPONSE TEXT: To clarify, the appropriate diagnosis supported by the clinical indicators: Sepsis (Severe) was present on admission QUERY TEXT: PHYSICIAN'S DOCUMENTATION REQUEST Date of Query: 01/28/2024 11:24 AM EST Patient Name: Gary Raphael Admit Date: 01/21/2024 Dear Rik Borjas MD, A review of the medical record indicates additional documentation may be needed. Please review below and update the documentation accordingly. Clinical Indicators: Consistency and Clarity within the Medical Record: ICU H&P 01/20 - Acute on chronic hypoxic respiratory failure likely multifactorial d/t Covid, progress ion of lung cancer. Dexamethasone, Remdesivir, Unasyn. WBC 22.6 Temp 97.6 HR 129 RR 20/25 BP 95/46 LA 7.1 ICU progress note 01/21 & 01/22 & 01/23 - Acute hypoxic respiratory failure secondary to combination of progressive metastatic disease and Covid-19 now requiring ventilatory support. ICU progress note dated 01/24 & 01/25 - Shock: Possibly secondary to severe sepsis and positive pressu re ventilation. ID: Sputum cultures positive for pseudomonas On amp Sulbactum will change to Zosyn given pseudomonas Please clarify based on the above if the documented Severe sepsis was POA or not: Sepsis (Severe) was present on admission Sepsis (Severe) was not present on admission Other (explain) Clinically unable to determine (explain) Thank you, Mindy Trinidad, CCS, CDIS Use of terms such as suspected, likely, concern for, or probable (associated with a specific diagnosi s that is being evaluated, monitored, or treated as if it exists) are acceptable and can be coded in the inpatient se tting, when documented at the time of discharge. Please use your independent medical judgment in providing your response. THIS QUERY IS PART OF THE PERMANENT MEDICAL RECORD
[2024-01-28] MEDS: Adenosine 6 MG/2 ML VIAL IVPUSH (14:16)
[2024-01-28] MEDS: Adenosine 6 MG/2 ML VIAL 12 MG IVPUSH (14:18)
[2024-01-28] MEDS: Esmolol HCl/NaCl Iso 2,500 MG/250 ML IV.SOLN 26.34 MG IVCONT (14:34)
[2024-01-28] MEDS: Valproic Acid Liquid 250 MG/5 ML SOLUTION PO (15:29)
--- NOTE | 2024-01-28 18:01 | MHC.SL.SWA ---
Speech Pathologist Impression: Risk of Aspiration Due to: Medically Fragile Dysphasia Diet Status: Liquid Consistency and Strategies for Safe Swallow: Liquid Intake Recommendation: Thin Liquid Intake Strategies: Liquids by Teaspoon Only Solid Food Consistency: Dietary Recommendations: Chopped/Advanced (NDD3) Additional Modifications to Solid Foods: Patient requires 1-1 feeding, with all liquids by spoon at this time. Oral Medication Intake: Whole with Puree Please contact the pharmacy regarding appropriate crushable or liquid drug formulations that are available whenever modified delivery is recommended. Compensatory Strategies and Precautions to be Taken for Safe Swallow: Sitting Upright (90 deg) Liquids from Spoon Small Bites and Sips Alternate Liquids/Solids Supervision While Eating and Drinking for Safe Swallow: Total Assistance (1:1) Foods to Avoid: Uncut pieces of meat, too large pieces of food. Swallowing Recommended Treatments: Compens. Strategy Educat. Recommendation for Speech: Inpatient Speech Therapy Comment: Patient is s/p extubation X48 hours. Patient with persistent aphonia, however was able to produce voice intermittently today. On assessment, patient presenting with generalized weakness, unable to feed self, and difficulty with labial coordination to sip liquids from cup or by straw, with other aspects of swallow mostly wfl. Recommend START diet of Chopped/Advanced (NDD3) to provide pre-cut food in small pieces; thin liquids by tsp only, and pills whole in puree. Patient will require 1-1 assistance at meals due to generalized weakness. MD notified of recommendation in person, followed up with communicating recommendation to MD/RD/RN by secure text. WIRE STRAIGHTENING MACHINE OPERATOR will continue to follow for toleration, possible advancement of diet. Frequency/Duration: Date Range for Service Req: Timeline to reassess: Medical Affairs Leader Clinican/Clinical Fellow: No Supervisory Statement: I have reviewed and agree with the student/clinical fellow's documentation: N/A Speech Language Pathologist: Beronica Ragland M.A., [facility]-WIRE STRAIGHTENING MACHINE OPERATOR
[2024-01-28 18:07] LABS: Glucose, Whole Blood 253 mg/dL (60-115)
[2024-01-28 21:33] LABS: Anion Gap 18 (12-20); Blood Urea Nitrogen 22 mg/dL (9-16); Calcium 6.8 mg/dL (8.4-10.2); Carbon Dioxide 20 mmol/L (22-29); Chloride 114 mmol/L (96-108); Creatinine Clr Calc Pharmacy 103.1; Estimated Glomerular Filt Rate > 60; Glucose Random 241 mg/dL (60-115); Potassium 3.5 mmol/L (3.3-5.1); Sodium 148 mmol/L (135-145)
[2024-01-28] MEDS: Metoprolol Tartrate 25 MG TABLET PO (21:50)
[2024-01-28 23:54] LABS: Glucose, Whole Blood 220 mg/dL (60-115)
[2024-01-29] VITALS (37 sets, daily range): BP systolic 113–154; BP diastolic 53–84; PULSE 84–212; RESP 19–41; TEMP 36.4–37.6; O2SAT 90–96; BMI 27.0
[2024-01-29] MEDS: Insulin Lispro 100 UNIT/ML 3 ML VIAL SUBCUT ×4 (00:08→18:01)
[2024-01-29] MEDS: 0.9 % Sodium Chloride Flush 3 ML SYRINGE IVFLUSH ×3 (00:08→16:12)
[2024-01-29] MEDS: Dextrose 5 % 1,000 ML 100 ML IVCONT (00:09)
[2024-01-29] MEDS: Albuterol/Iprat 2.5/0.5MG 3 ML AMPUL.NEB INHALE ×2 (00:11→06:16)
[2024-01-29] MEDS: Famotidine/PF 20 MG/2 ML VIAL IVPUSH ×3 (00:47→21:24)
[2024-01-29] MEDS: diphenhydrAMINE HCL 50 MG/ML VIAL 25 MG IVPUSH (00:47)
[2024-01-29] MEDS: methylPREDNISolone Sod Succ 125 MG/2 ML VIAL IVPUSH (00:47)
[2024-01-29] MEDS: oxyCODONE HCl Immed Release 5 MG TABLET 10 MG PO ×3 (00:48→16:07)
--- NOTE | 2024-01-29 02:21 | HO.SKINPHOTO ---
Location: Chest/ Back Category: Blanchable rash Blanchable rash noted to patients chest/back upon initial assessment at approximately 2330. Rash is more concentrated to the upper chest. Pt denies any itchiness or pain associated with the rash. Eber XAVIER notified- 25mg IVP Benadryl, 20mg IVP Pepcid and 125mg IVP Solumedrol administered per APR.
[2024-01-29] MEDS: Piperacillin Sodium/Tazobactam 4.5 GM in 0.9 % Sodium Chloride 100 ML IV ×4 (03:59→22:17)
[2024-01-29] MEDS: dilTIAZem HCL 50 MG/10 ML VIAL 20 MG IVPUSH (04:11)
[2024-01-29] MEDS: HYDROmorphone HCl 0.5 MG/0.5 ML SYRINGE IVPUSH ×3 (04:15→22:16)
[2024-01-29] MEDS: dilTIAZem HCL 125 MG in 0.9 % Sodium Chloride 100 ML 10 MG IVCONT ×2 (04:21→14:39)
[2024-01-29 04:50] LABS: Hematocrit 32.3 % (42.0-52.0); Mean Corpuscular Hemoglobin 24.8 pg (27.0-33.0); Mean Platelet Volume 10.4 fL (9.4-12.4); Platelet Count 222 X10*3/uL (160-400); Red Blood Count 4.04 X10*6/uL (4.60-5.80); Red Cell Distribution Width 20.4 % (11.0-16.0)
[2024-01-29 04:53] LABS: VBG Base Excess 0.3 mmol/L; VBG HCO3 22 mmol/L (22-26); VBG pCO2 27 mmHg; VBG pH 7.51 (7.32-7.43); VBG pO2 81 mmHg
[2024-01-29 04:54] LABS: White Blood Count 44.9 X10*3/uL (4.8-10.8)
[2024-01-29 04:55] LABS: Venous Blood Gas Refer to POC result
[2024-01-29 05:12] LABS: Alanine Aminotransferase 94 U/L (0-40); Albumin Level 3.2 g/dL (3.5-5.0); Alkaline Phosphatase 172 U/L (39-117); Anion Gap 17 (12-20); Aspartate Amino Transferase 130 U/L (5-37); Bilirubin Total 1.7 mg/dL (0.0-1.0); Blood Urea Nitrogen 21 mg/dL (9-16); Carbon Dioxide 19 mmol/L (22-29); Chloride 112 mmol/L (96-108); Estimated Glomerular Filt Rate > 60; Glucose Random 268 mg/dL (60-115); Magnesium 2.1 mg/dL (1.6-2.6); Potassium 3.4 mmol/L (3.3-5.1); Sodium 145 mmol/L (135-145); Total Protein 6.7 g/dL (6.5-8.0)
[2024-01-29 05:15] LABS: Band Neutrophils Percent 0 % (3-5); Eosinophils Absolute Manual 0.4 X10*3/uL (0.0-0.4); Eosinophils Percent Manual 1 % (0-4); Lymphocytes Absolute Manual 0.4 X10*3/uL (1.2-4.9); Lymphocytes Percent Manual 1 % (20-40); Monocytes Absolute Manual 0.4 X10*3/uL (0.1-1.2); Monocytes Percent Manual 1 % (2-11); Neutrophils Absolute Manual 43.6 X10*3/uL (2.0-8.3); Neutrophils Percent Manual 97 % (45-73); RBC Morphology NOTED
[2024-01-29 05:16] LABS: Acanthocytes 1+ (0-2) /OIF; Large Platelet PRESENT; Ovalocytes 1+ (5-14) /OIF; Platelet Estimate NORMAL (NORMAL); Platelet Morphology Comment NOTED
[2024-01-29 05:17] LABS: Burr Cells 2+ (3-5) /OIF; Schistocytes 1+ (0-2) /OIF; Target Cells 1+ (5-14) /OIF; Tear Drop Cells 1+ (0-2) /OIF
[2024-01-29 05:18] LABS: Hypersegmented Neutrophils PRESENT; Toxic Vacuolation PRESENT
[2024-01-29 05:19] LABS: Hypochromasia 1+ (5-14) /OIF; Polychromasia 1+ (0-2) /OIF
--- NOTE | 2024-01-29 05:52 | ECG_ITS ---
Test Reason : SVT Blood Pressure : / mmHG Vent. Rate : 108 BPM Atrial Rate : 000 BPM P-R Int : 000 ms QRS Dur : 080 ms QT Int : 366 ms P-R-T Axes : 000 006 064 degrees QTc Int : 490 ms Normal sinus rhythm with frequent Premature atrial complexes with premature ventricular or aberrantly conducted complexes Nonspecific ST and T wave abnormality Abnormal ECG When compared with ECG of 22-JAN-2024 14:39, Premature atrial complexes and Premature ventricular complexes are now Present Nonspecific T wave abnormality now evident in Inferior leads Referred By: Eber Zabala Electronically Signed By:LINDA DANIELS MD
[2024-01-29] MEDS: Potassium Phosphate/NS 15 MMOL/250 ML PLAST..BAG 62.5 MMOL IV ×2 (05:57→10:29)
[2024-01-29 06:17] LABS: Glucose, Whole Blood 291 mg/dL (60-115)
--- NOTE | 2024-01-29 06:34 | PC.NURSE ---
Upon initial assessment at approximately?2300- pt drowsy but arousable to name, A+Ox4 vague/forgetful, able to follow simple commands, weakly SHEETS. NSR/ST with PVCs on tele, HR 90-100s. SBP 120-130s. Pt on HFNC, spO2 >92%. Lungs dim with rhonchi throughout. Weak moist non-productive cough. 14Fr chest tube present to right lateral chest, upon initial assessment 3-way stopcock is turned off to the patient, insertion site is free of crepitus or drainage- Eber Zabala PA notified, per PA maintain stopcock off to patient. Blanchable rash noted to chest/ back- see Skin Note.? At approximately?0400 pt HR increased to 200s, SBP 150s. 20mg IVP Cardizem ordered and administered per APR with good effect, HR 110s. Cardizem gtt started per APR. EKG obtained- see report.?
--- NOTE | 2024-01-29 07:23 | P.CONGS_ITS ---
History of Present Illness Consult details Consult date: 01/29/24 Narrative: Patient was a 68-year-old male whom I know very well from the recent past who is currently in the ICU with respiratory issues secondary to COVID as well as other comorbidities which include lung cancer metastatic prostate cancer. Consultation has been obtained as of abdominal pain and sonogram of the right upper quadrant demonstrating findings consistent with acute cholecystitis. Chart was reviewed and patient evaluated. Patient currently has a highly significant leukocytosis. He has a right chest tube in draining serous fluid. [facility] Past Medical History Medical History Back pain Constipation Vomiting GERD (gastroesophageal reflux disease) History of prostate cancer Hemoptysis Carcinoma, lung Personal history of nicotine dependence Asthma with chronic obstructive pulmonary disease (COPD) COPD (chronic obstructive pulmonary disease) Obesity (BMI 30.0-34.9) History of COVID-19 Left hip prosthetic joint infection Opioid dependence Shoulder pain Osteoarthritis Right leg swelling Arthritis, hip Family History Family History Father Colon cancer Mother Cancer Surgical History Surgical History History of lobectomy of lung (12/10/23) Non-small cell cancer of left lung History of bronchoscopy History of total right hip replacement History of total left hip replacement History of lumbar surgery Social History Social History Household Members: Spouse and Children Household Members Other:: daughter Housing: House Are you a primary health care analyst to a significant other at home: No Do you presently have visiting nurse or other home services: No Alcohol intake: never Patient Tobacco Use Status: Former Tobacco user Cigarette Packs Per Day: 1 Years Smoked: onset 16yo, 1ppd x 40yrs, 40pyh Smoked in Last 30 Days: No e-Cigarette/Vaping Use: Never Used Second Hand Smoke Exposure: No Use of substances other than those prescribed or required for medical reasons: No Currently Displaying Signs/Symptoms of Drug Intoxication Withdrawal: No Have you been hit, kicked, punched, or otherwise hurt by someone within the past year? If so, by whom?: No Do you feel safe in your current relationship?: No Is there a partner from a previous relationship who is making you feel unsafe now?: No Advance Directives: No Advance Directives Information Provided: Yes Do you have a plan to hurt others: No Plan Recently lost weight without trying: No Nutrition Risks: No Nutritional Risk service: No Current 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 Cognitive needs: No Hearing needs: No Vision needs: No Meds Allergies Allergy/AdvReac Type Severity Reaction Status Date / Time metoprolol [From Lopressor] Allergy Intermediate Rash Verified 01/29/24 04:17 Penicillins Allergy Intermediate Vomiting Verified 01/21/24 03:16 Bees Allergy Severe anaphylaxis Uncoded 01/05/24 14:58 Active Medications: Current Medications Acetaminophen (Acetaminophen 325 Mg Tablet) 650 mg PO Q6H PRN PRN Reason: Fever Albuterol/Ipratropium (Albuterol/Iprat 2.5/0.5mg 3 Ml Ampul.Neb) 3 ml INHALE RQ6H [facility] Last Admin: 01/29/24 06:16 Dose: 3 ml Chlorhexidine Gluconate (Chlorhexidine Gluc Oral Rinse 15 Ml Mouthwash) 15 ml BUCCAL TID [facility] Last Admin: 01/28/24 20:10 Dose: Not Given Enoxaparin Sodium (Enoxaparin Sodium 40 Mg/0.4 Ml Syringe) 40 mg SUBCUT Q24H [facility] Last Admin: 01/25/24 06:22 Dose: Not Given Famotidine (Famotidine/Pf 20 Mg/2 Ml Vial) 20 mg IVPUSH BID [facility] Last Admin: 01/28/24 21:50 Dose: 20 mg Fentanyl (Fentanyl Citrate/Pf 100 Mcg/2 Ml Vial) 50 mcg IVPUSH Q2H PRN; Protocol PRN Reason: Shortness of Breath Last Admin: 01/28/24 08:48 Dose: 50 mcg Glucose (Glucose Gel 15 Gm Gel..Gram.) 15 gm PO Q15M PRN; Protocol PRN Reason: per Hypoglycemia Standing Ord. Hydromorphone HCl (Hydromorphone Hcl 0.5 Mg/0.5 Ml Syringe) 0.5 mg IVPUSH Q3H PRN; Protocol PRN Reason: Pain, Moderate(Pain Scale 4-6) Last Admin: 01/29/24 04:15 Dose: 0.5 mg Dextrose (D10) 250 mls @ 750 mls/hr IV Q15M PRN; Protocol PRN Reason: per Hypoglycemia Standing Ord. Piperacillin Sod/Tazobactam (Sod 4.5 gm/ Sodium Chloride) 100 mls @ 200 mls/hr IV Q6H [facility] Last Infusion: 01/29/24 04:30 Dose: Infused Dexmedetomidine HCl (Precedex) 400 mcg in 100 mls @ 0 mls/hr IVCONT .Q0M [facility]; Protocol Last Titration: 01/29/24 02:00 Dose: Infused Dextrose (D5w) 1,000 mls @ 100 mls/hr IVCONT .Q10H [facility] Last Admin: 01/29/24 00:09 Dose: 100 mls/hr Levofloxacin (Levaquin) 750 mg in 150 mls @ 100 mls/hr IV Q24H [facility] Last Infusion: 01/28/24 10:15 Dose: Infused Diltiazem HCl 125 mg/ Sodium (Chloride) 125 mls @ 10 mls/hr IVCONT .[id number] [facility]; Protocol Last Admin: 01/29/24 04:21 Dose: 10 mg/hr, 10 mls/hr Potassium Phosphate (Kphos) 15 mmol in 250 mls @ 62.5 mls/hr IV Q4H [facility] Stop: 01/29/24 13:29 Last Admin: 01/29/24 05:57 Dose: 62.5 mls/hr Insulin Human Lispro (Insulin Lispro 100 Unit/Ml 3 Ml Vial) 0 unit SUBCUT Q6H [facility]; Protocol Last Admin: 01/29/24 06:00 Dose: 6 unit Levalbuterol HCl (Levalbuterol Hcl 1.25 Mg/3 Ml Vial.Neb) 1.25 mg INHALE Q2H PRN PRN Reason: Shortness of Breath/Wheezing Metoprolol Tartrate (Metoprolol Tartrate 25 Mg Tablet) 25 mg PO BID [facility]; Protocol Last Admin: 01/28/24 21:50 Dose: 25 mg Ondansetron HCl (Ondansetron Hcl 4 Mg/2 Ml Vial) 4 mg IVPUSH Q8H PRN PRN Reason: Nausea and Vomiting Last Admin: 01/27/24 14:59 Dose: 4 mg Oxycodone HCl (Oxycodone Hcl Immed Release 5 Mg Tablet) 10 mg PO Q8H [facility] Last Admin: 01/29/24 00:48 Dose: 10 mg Sodium Chloride (0.9 % Sodium Chloride Flush 3 Ml Syringe) 3 ml IVFLUSH QSHIFT [facility] Last Admin: 01/29/24 00:08 Dose: 3 ml Home Medications ?Medication ?Instructions ?Recorded ?Confirmed ?Last Taken ?Type albuterol sulfate 90 mcg/actuation 2 inh inhalation Q8H PRN Shortness 01/21/24 01/21/24 Unknown History aerosol inhaler (Ventolin HFA) Of Breath Or Wheezing docusate sodium 100 mg capsule 100 mg PO BID PRN Constipation 01/21/24 01/21/24 01/20/24 History (Colace) doxycycline monohydrate 100 mg 100 mg PO BID 01/21/24 01/21/24 01/20/24 History capsule esomeprazole magnesium 20 mg 20 mg PO DAILY PRN Heartburn 01/21/24 01/21/24 Unknown History capsule,delayed release (Nexium) fluticasone propionate 115 2 puff inhalation BID 01/21/24 01/21/24 Unknown History mcg-salmeterol 21 mcg/actuation HFA inhaler (Advair HFA) prednisone 2.5 mg tablet 2.5 mg PO BID 01/21/24 01/21/24 01/19/24 History Physical Exam 2 Vital Signs: Vital Signs: Last Vital Signs Temp 97.5 F 01/29/24 04:00 Pulse 114 H 01/29/24 07:00 Resp 25 H 01/29/24 07:00 BP 140/62 H 01/29/24 07:00 Pulse Ox 92 01/29/24 07:00 O2 Del Method High Flow Nasal C annula 01/29/24 07:00 O2 Flow Rate 60 01/29/24 07:00 FiO2 50 01/29/24 07:00 BMI result Body Mass Index 27.0 Const: Other: I last saw the patient several weeks ago. He currently looks very gaunt, has lost significant weight, is on supplemental high-flow oxygen, and is minimally communicative. He states he is having some upper abdominal pain. GI: Other: Abdomen corpulent, soft. Right upper quadrant tenderness. No evidence of any guarding, rebound, rigidity. Results Labs 01/29/24 04:42 01/29/24 04:42 Labs: Abnormal lab results 01/28/24 01/28/24 01/28/24 Range/Units 10:01 11:24 18:01 WBC (4.8-10.8) X10*3/uL RBC (4.60-5.80) X10*6/uL Hgb (14.0-18.0) g/dl Hct (42.0-52.0) % MCH (27.0-33.0) pg RDW (11.0-16.0) % Absolute Nucleated RBC (0.0-0.012) X10*3/uL Neutrophils % (Manual) (45-73) % Band Neutrophils % (3-5) % Lymphocytes % (Manual) (20-40) % Monocytes % (Manual) (2-11) % Abs Neuts (Manual) (2.0-8.3) X10*3/uL Lymphocytes # (Manual) (1.2-4.9) X10*3/uL VBG pH (7.32-7.43) Sodium (135-145) mmol/L Chloride (96-108) mmol/L Carbon Dioxide (22-29) mmol/L BUN (9-16) mg/dL POC Glucose 251 H 253 H (60-115) mg/dL Random Glucose (60-115) mg/dL Calcium (8.4-10.2) mg/dL Phosphorus (2.7-4.5) mg/dL Total Bilirubin (0.0-1.0) mg/dL AST (5-37) U/L ALT (0-40) U/L Alkaline Phosphatase (39-117) U/L Albumin (3.5-5.0) g/dL Urine Protein 100 (2+) H (Neg-Trace) mg/dL Urine Glucose (UA) 100 H (Negative) mg/dL Urine Blood Small (1+) H (Negative) 01/28/24 01/28/24 01/29/24 Range/Units 21:02 23:34 04:42 WBC 44.9 H* (4.8-10.8) X10*3/uL RBC 4.04 L (4.60-5.80) X10*6/uL Hgb 10.0 L (14.0-18.0) g/dl Hct 32.3 L (42.0-52.0) % MCH 24.8 L (27.0-33.0) pg RDW 20.4 H (11.0-16.0) % Absolute Nucleated RBC 0.020 H (0.0-0.012) X10*3/uL Neutrophils % (Manual) 97 H (45-73) % Band Neutrophils % 0 L (3-5) % Lymphocytes % (Manual) 1 L (20-40) % Monocytes % (Manual) 1 L (2-11) % Abs Neuts (Manual) 43.6 H (2.0-8.3) X10*3/uL Lymphocytes # (Manual) 0.4 L (1.2-4.9) X10*3/uL VBG pH (7.32-7.43) Sodium 148 H (135-145) mmol/L Chloride 114 H 112 H (96-108) mmol/L Carbon Dioxide 20 L 19 L (22-29) mmol/L BUN 22 H 21 H (9-16) mg/dL POC Glucose 220 H (60-115) mg/dL Random Glucose 241 H 268 H (60-115) mg/dL Calcium 6.8 L 7.0 L (8.4-10.2) mg/dL Phosphorus 2.0 L (2.7-4.5) mg/dL Total Bilirubin 1.7 H (0.0-1.0) mg/dL AST 130 H (5-37) U/L ALT 94 H (0-40) U/L Alkaline Phosphatase 172 H (39-117) U/L Albumin 3.2 L (3.5-5.0) g/dL Urine Protein (Neg-Trace) mg/dL Urine Glucose (UA) (Negative) mg/dL Urine Blood (Negative) 01/29/24 01/29/24 Range/Units 04:48 05:58 WBC (4.8-10.8) X10*3/uL RBC (4.60-5.80) X10*6/uL Hgb (14.0-18.0) g/dl Hct (42.0-52.0) % MCH (27.0-33.0) pg RDW (11.0-16.0) % Absolute Nucleated RBC (0.0-0.012) X10*3/uL Neutrophils % (Manual) (45-73) % Band Neutrophils % (3-5) % Lymphocytes % (Manual) (20-40) % Monocytes % (Manual) (2-11) % Abs Neuts (Manual) (2.0-8.3) X10*3/uL Lymphocytes # (Manual) (1.2-4.9) X10*3/uL VBG pH 7.51 H (7.32-7.43) Sodium (135-145) mmol/L Chloride (96-108) mmol/L Carbon Dioxide (22-29) mmol/L BUN (9-16) mg/dL POC Glucose 291 H (60-115) mg/dL Random Glucose (60-115) mg/dL Calcium (8.4-10.2) mg/dL Phosphorus (2.7-4.5) mg/dL Total Bilirubin (0.0-1.0) mg/dL AST (5-37) U/L ALT (0-40) U/L Alkaline Phosphatase (39-117) U/L Albumin (3.5-5.0) g/dL Urine Protein (Neg-Trace) mg/dL Urine Glucose (UA) (Negative) mg/dL Urine Blood (Negative) Short CBC 01/29/24 Range/Units 04:42 WBC 44.9 H* (4.8-10.8) X10*3/uL Hgb 10.0 L (14.0-18.0) g/dl Hct 32.3 L (42.0-52.0) % Plt Count 222 (160-400) X10*3/uL BMP 01/28/24 01/29/24 21:02 04:42 Sodium 148 H 145 Potassium 3.5 3.4 Chloride 114 H 112 H Carbon Dioxide 20 L 19 L BUN 22 H 21 H Creatinine 0.71 0.69 Calcium 6.8 L 7.0 L Liver Function 01/29/24 Range/Units 04:42 Total Bilirubin 1.7 H (0.0-1.0) mg/dL AST 130 H (5-37) U/L ALT 94 H (0-40) U/L Alkaline Phosphatase 172 H (39-117) U/L Albumin 3.2 L (3.5-5.0) g/dL Urine 01/21/24 01/28/24 Range/Units 06:04 10:01 Urine Color Yellow Dark Yellow Urine Appearance Clear Clear Urine pH 5.5 5.5 (5.0-9.0) Ur Specific [place] 1.015 1.020 (1.005-1.025) Urine Protein 30 (1+) H 100 (2+) H (Neg-Trace) mg/dL Urine Glucose (UA) Negative 100 H (Negative) mg/dL All other labs normal. Assessment and Plan (1) Cholecystitis, acute: Status: Acute (2) Pleural effusion, right: Status: Acute Plan 1. Order has been placed for IR gallbladder drainage. 2. I discussed with the cable cutter and swager yesterday evening that his right pleural fluid should be recent for cytology and if it is indeed malignant, while the chest tube was then, consider pleurodesis/sclerosis Procedures Date of Service Date of Service: 01/29/24
--- NOTE | 2024-01-29 08:54 | MHC.CLN ---
F/U DIET ADVANCED TO CHOPPED PER [employer] PT WITH INCREASED NUTRITION RISK R/T PRESSURE INJURY RECOMMEND ADDING ENSURE TID TO PROMOTE WOUND HEALING SUPPLEMENT TO PROVIDE 1050KCALS, 60G PROTEIN MONITOR PO INTAKE AND ENCOURAGE SUPPLEMENT
--- NOTE | 2024-01-29 08:57 | PM.CCPN ---
Subjective Subjective Date of Service: 01/29/24 Critical Care Time (minutes): 35 Comment: Further worsening of leukocytosis, abdominal ultrasound concerning for acute cholecystitis general surgery consulted, we will consult IR for cholecystostomy. Developed rash on his chest and abdomen that was in his early phase yesterday morning possibly due to levofloxacin we will discontinue levofloxacin Continues to be on high-flow to ease work of breathing Physical Exam Vital Signs: Vital Signs: Last Vital Signs Temp 99.7 F 01/29/24 08:00 Pulse 111 H 01/29/24 08:00 Resp 25 H 01/29/24 08:00 BP 118/70 01/29/24 08:00 Pulse Ox 93 01/29/24 08:00 O2 Del Method High Flow Nasal C annula 01/29/24 08:00 O2 Flow Rate 60 01/29/24 08:00 FiO2 50 01/29/24 08:00 BMI result Body Mass Index 27.0 General: Patient is in acute distress, ill appearing and tired appearing Nutritional Appearance: Poor nourished and under weight Eyes: appearance normal, both eyes and all related structures; Alignment and Position: alignment normal and position normal Neck: No lymphadenopathy, no thyromegaly Resp: bilateral air entry equal, crackles heard in the right side Cardio: Regular rate, regular rhythm; Heart sounds: S1 normal heart sound present and S2 normal heart sound present GI: soft, nontender, no guarding, no hepatosplenomegaly : bladder normal to inspection, bladder normal to palpation, no renal angle tenderness Skin: no rashes or lesions noted and elasticity normal Neuro: oriented to person, oriented to place, oriented to time and moves all extremities Objective Data Labs 01/29/24 04:42 01/29/24 04:42 Labs: Laboratory Results - last 24 hr 01/28/24 01/28/24 01/28/24 10:01 11:24 18:01 WBC RBC Hgb Hct MCV MCH MCHC RDW Plt Count MPV Immature Gran % (Auto) Neut % (Auto) Lymph % (Auto) [place] % (Auto) Eos % (Auto) Baso % (Auto) Lymph # (Auto) [place] # (Auto) Eos # (Auto) Baso # (Auto) Abs Immat Gran (auto) Absolute Neuts (auto) Absolute Nucleated RBC Nucleated RBC % (auto) Neutrophils % (Manual) Band Neutrophils % Lymphocytes % (Manual) Monocytes % (Manual) Eosinophils % (Manual) Abs Neuts (Manual) Lymphocytes # (Manual) Monocytes # (Manual) Eosinophils # (Manual) Hypersegmented Neuts Toxic Vacuolation Platelet Estimate Large Platelets Plt Morphology Comment RBC Morphology Polychromasia Hypochromasia Target Cells Tear Drop Cells Ovalocytes [place] Cells Acanthocytes (Spur) Schistocytes VBG pH VBG pCO2 VBG pO2 VBG HCO3 VBG O2 Saturation VBG Base Excess Sodium Potassium Chloride Carbon Dioxide Anion Gap BUN Creatinine Estim Creat Clear Calc Estimated GFR POC Glucose 251 H 253 H Random Glucose Calcium Phosphorus Magnesium Total Bilirubin AST ALT Alkaline Phosphatase Total Protein Albumin Urine Color Dark Yellow Urine Appearance Clear Urine pH 5.5 Ur Specific [place] 1.020 Urine Protein 100 (2+) H Urine Glucose (UA) 100 H Urine Ketones Negative Urine Blood Small (1+) H Urine Nitrite Negative Ur Leukocyte Esterase Negative Urine RBC 0-2 Urine WBC 0-5 Ur Squamous Epith Cells 3-5 Urine Bacteria None Seen Hyaline Casts 0-2 Hep Bs Antigen Negative Hep Bs Antibody NONREACTIVE Hep B Core Total Ab Nonreactive Hepatitis C Ab (EIA) Nonreactive 01/28/24 01/28/24 01/29/24 21:02 23:34 04:42 WBC 44.9 H* RBC 4.04 L Hgb 10.0 L Hct 32.3 L MCV 80.0 MCH 24.8 L MCHC 31.0 RDW 20.4 H Plt Count 222 MPV 10.4 Immature Gran % (Auto) Cancelled Neut % (Auto) Cancelled Lymph % (Auto) Cancelled [place] % (Auto) Cancelled Eos % (Auto) Cancelled Baso % (Auto) Cancelled Lymph # (Auto) Cancelled [place] # (Auto) Cancelled Eos # (Auto) Cancelled Baso # (Auto) Cancelled Abs Immat Gran (auto) Cancelled Absolute Neuts (auto) Cancelled Absolute Nucleated RBC 0.020 H Nucleated RBC % (auto) 0.0 Neutrophils % (Manual) 97 H Band Neutrophils % 0 L Lymphocytes % (Manual) 1 L Monocytes % (Manual) 1 L Eosinophils % (Manual) 1 Abs Neuts (Manual) 43.6 H Lymphocytes # (Manual) 0.4 L Monocytes # (Manual) 0.4 Eosinophils # (Manual) 0.4 Hypersegmented Neuts PRESENT Toxic Vacuolation PRESENT Platelet Estimate NORMAL Large Platelets PRESENT Plt Morphology Comment NOTED RBC Morphology NOTED Polychromasia 1+ (0-2) Hypochromasia 1+ (5-14) Target Cells 1+ (5-14) Tear Drop Cells 1+ (0-2) Ovalocytes 1+ (5-14) [place] Cells 2+ (3-5) Acanthocytes (Spur) 1+ (0-2) Schistocytes 1+ (0-2) VBG pH VBG pCO2 VBG pO2 VBG HCO3 VBG O2 Saturation VBG Base Excess Sodium 148 H 145 Potassium 3.5 3.4 Chloride 114 H 112 H Carbon Dioxide 20 L 19 L Anion Gap 18 17 BUN 22 H 21 H Creatinine 0.71 0.69 Estim Creat Clear Calc 103.1 106.0 Estimated GFR > 60 > 60 POC Glucose 220 H Random Glucose 241 H 268 H Calcium 6.8 L 7.0 L Phosphorus 2.0 L Magnesium 2.1 Total Bilirubin 1.7 H AST 130 H ALT 94 H Alkaline Phosphatase 172 H Total Protein 6.7 Albumin 3.2 L Urine Color Urine Appearance Urine pH Ur Specific [place] Urine Protein Urine Glucose (UA) Urine Ketones Urine Blood Urine Nitrite Ur Leukocyte Esterase Urine RBC Urine WBC Ur Squamous Epith Cells Urine Bacteria Hyaline Casts Hep Bs Antigen Hep Bs Antibody Hep B Core Total Ab Hepatitis C Ab (EIA) 01/29/24 01/29/24 04:48 05:58 WBC RBC Hgb Hct MCV MCH MCHC RDW Plt Count MPV Immature Gran % (Auto) Neut % (Auto) Lymph % (Auto) [place] % (Auto) Eos % (Auto) Baso % (Auto) Lymph # (Auto) [place] # (Auto) Eos # (Auto) Baso # (Auto) Abs Immat Gran (auto) Absolute Neuts (auto) Absolute Nucleated RBC Nucleated RBC % (auto) Neutrophils % (Manual) Band Neutrophils % Lymphocytes % (Manual) Monocytes % (Manual) Eosinophils % (Manual) Abs Neuts (Manual) Lymphocytes # (Manual) Monocytes # (Manual) Eosinophils # (Manual) Hypersegmented Neuts Toxic Vacuolation Platelet Estimate Large Platelets Plt Morphology Comment RBC Morphology Polychromasia Hypochromasia Target Cells Tear Drop Cells Ovalocytes [place] Cells Acanthocytes (Spur) Schistocytes VBG pH 7.51 H VBG pCO2 27 VBG pO2 81 VBG HCO3 22 VBG O2 Saturation 96.0 VBG Base Excess 0.3 Sodium Potassium Chloride Carbon Dioxide Anion Gap BUN Creatinine Estim Creat Clear Calc Estimated GFR POC Glucose 291 H Random Glucose Calcium Phosphorus Magnesium Total Bilirubin AST ALT Alkaline Phosphatase Total Protein Albumin Urine Color Urine Appearance Urine pH Ur Specific [place] Urine Protein Urine Glucose (UA) Urine Ketones Urine Blood Urine Nitrite Ur Leukocyte Esterase Urine RBC Urine WBC Ur Squamous Epith Cells Urine Bacteria Hyaline Casts Hep Bs Antigen Hep Bs Antibody Hep B Core Total Ab Hepatitis C Ab (EIA) Microbiology Microbiology Results: Microbiology 01/27/24 10:19 Blood - Venous Blood Culture - Preliminary No growth after 24 hours. 01/27/24 10:19 Blood - Venous Blood Culture - Preliminary No growth after 24 hours. 01/25/24 12:04 Pleural Fluid Gram Stain - Final 01/25/24 12:04 Pleural Fluid Routine Culture - Final No growth after 2 days 01/25/24 12:04 Pleural Fluid Anaerobic Culture - Preliminary No growth to date. 01/23/24 16:34 Sputum - Suctioned Gram Stain - Final 01/23/24 16:34 Sputum - Suctioned Sputum Culture - Final Pseudomonas aeruginosa 01/21/24 04:03 Blood - Venous Blood Culture - Final No growth after 5 days. 01/21/24 04:03 Blood - Venous Blood Culture - Final No growth after 5 days. Progress Note: A&P Assessment and plan (1) Non-small cell cancer of left lung: Status: Acute (2) Non-small cell carcinoma of lung: Status: Acute (3) Metastatic malignant neoplasm to prostate: Status: Acute (4) Prostate cancer metastatic to bone: Status: Acute (5) Prostate cancer: Status: Acute (6) Cholecystitis, acute: Status: Acute (7) Opioid dependence: Status: Acute Plan 68-year-old gentleman with past medical history of asthma/COPD overlap syndrome, lung cancer status post lobectomy, and prostate cancer now with metastasis to bone and chest admitted to medical ICU due to acute respiratory failure secondary to COVID-19 and worsening metastasis disease in the lung needing intubation and ventilator support finally extubated on 01/26/2024 currently on high flow oxygen to ease work of breathing. Worsening leukocytosis and transaminitis for which abdominal imaging was performed which showed acute cholecystitis. Developed rash over his chest and abdomen possibly secondary to levofloxacin Neuro: Acute encephalopathy possibly due to metabolic encephalopathy Off Precedex since yesterday Continue oxycodone TID, we will increase the dose due to opioid dependence, on valproate 250 mL t.i.d. for further anxiolysis Close neurological status monitoring in the ICU every hour Cardiac: Episodes of SVT: On as needed diltiazem drip, continue p.o. metoprolol 25 mg b.i.d. tachycardic and 4 beats of VT Respiratory: Acute hypoxemic respiratory failure due to COVID 19 pneumonia and metastatic lung disease s/p left lower lobe lobectomy in August Extubated on 01/26/2024, Currently high-flow oxygen on 50% oxygen at 60 liters/minute to assist with increased work of breathing. Chest tube placed for right-sided pleural effusion which drained about 1000cc of fluid. GI: not clear for feeds by speech, NPO with ice chips had 4 bowel movements last night Acute cholecystitis: Continue Zosyn for antibiotic coverage General surgery consulted, he is a poor candidate for surgery. We will consult IR for cholecystostomy tube placement Renal: creatinine normal We will closely monitor I's and O's Avoid nephrotoxic medications Hypernatremia: improved down to 145, on D5 water at 75cc/hr, will change to D5 with 2 amps of bicarb Hypocalcemia: 7.4 this morning, PTH level increased secondary to hypocalcemia replacing as per protocol Heme: Chronic anemia, closely monitor H&H, transfuse for hemoglobin less than 7 grams/deciliter INR normal Endocrine: Blood sugars under control Sliding scale insulin as needed Infectious disease: Worsening leukocytosis possibly secondary to acute cholecystitis sputum cultures positive for pseudomonas Continue Zosyn for Pseudomonas pneumonia and cholecystitis Levofloxacin discontinued due to rash that developed yesterday COVID 19 pneumonia: off dexamethasone due to cholecystitis, and remdesivir. Musculoskeletal: Decubitus ulcer prevention protocol wound care consult for erythema Rash: possibly secondary to levofloxacin will add oral benadryl 50 q6h and famotidine will hold off on steroids due to acute cholecystitis Lines: peripheral Prophylaxis: Lovenox, pantoprazole Quality Stroke Does the patient have a stroke diagnosis?: No VTE Prior VTE?: No VTE Risk Level:: Medical - moderate - high VTE Device Contraindication: N/A - Device Ordered VTE Drug Contraindication: N/A - Med Ordered
--- NOTE | 2024-01-29 09:38 | MHC.CM.PN ---
Patient remains in ICU care on HFNC, chest tube in place. CM will continue to follow.
[2024-01-29] MEDS: diphenhydrAMINE HCL 25 MG CAPSULE PO ×3 (10:29→21:25)
[2024-01-29] MEDS: Metoprolol Tartrate 25 MG TABLET PO ×2 (10:29→21:24)
[2024-01-29] MEDS: Sodium Bicarbonate 8.4% 100 MEQ in Dextrose 5 % 900 ML IV ×2 (10:30→19:39)
[2024-01-29 11:48] LABS: Glucose, Whole Blood 311 mg/dL (60-115)
--- NOTE | 2024-01-29 12:39 | MHC.SL.SWA ---
Speech Pathologist Impression: Risk of Aspiration, Oropharyngeal Dysphagia Risk of Aspiration Due to: Medically Fragile Dysphasia Diet Status: No Change Liquid Consistency and Strategies for Safe Swallow: Liquid Intake Recommendation: Thin Liquid Intake Strategies: Small Sips No Straws Solid Food Consistency: Dietary Recommendations: Chopped/Advanced (NDD3) Additional Modifications to Solid Foods: Recommend continue on Chopped/Advanced Diet and Thin liquids, pills Whole or Crushed in Puree per patient's tolerance. Patient will continue to need 1:1 assistance feeding and close monitoring. Administer small bites and encourage patient to chew food well. Ensure oral cavity is clear before giving more bites. Liquids to be given by teaspoon or individual sips via controlled cup. Discontinue feeding if patient exhibits any overt s/s of aspiration. Oral Medication Intake: Whole with Puree Please contact the pharmacy regarding appropriate crushable or liquid drug formulations that are available whenever modified delivery is recommended. Compensatory Strategies and Precautions to be Taken for Safe Swallow: Sitting Upright (90 deg) No Straw Liquids from Cup Liquids from Spoon Small Bites and Sips Alternate Liquids/Solids Rate of Ingestion Change Avoid Specific Foods Supervision While Eating and Drinking for Safe Swallow: Total Assistance (1:1) Foods to Avoid: Mixed consistencies, hard to chew solids Swallowing Recommended Treatments: Compens. Strategy Educat. Recommendation for Speech: Inpatient Speech Therapy Comment: Patient w/ recent extubation. Patient with persistent aphonia, however was able to produce voice intermittently today. On assessment, patient presenting with generalized weakness, unable to feed self, and difficulty with labial coordination to sip liquids from cup or by straw, with other aspects of swallow mostly wfl. Recommend START diet of Chopped/Advanced (NDD3) to provide pre-cut food in small pieces; thin liquids by tsp only, and pills whole in puree. Patient will require 1-1 assistance at meals due to generalized weakness. WILDLIFE MANAGEMENT PROFESSOR will continue to follow for toleration, possible advancement of diet. Frequency/Duration: Date Range for Service Req: Timeline to reassess: [place] Clinican/Clinical Fellow: No Supervisory Statement: I have reviewed and agree with the student/clinical fellow's documentation: N/A Speech Language Pathologist: Becky Jackman M.A., [facility]-WILDLIFE MANAGEMENT PROFESSOR
--- NOTE | 2024-01-29 14:30 | PM.PROC ---
Brief Operative Note Date of procedure: 01/29/24 Pre-op diagnosis: Acalculous cholecystitis Post-op diagnosis: same Procedure: US cholecystostomy tube 8 fr transhepatic drain placed. Dark thick bile aspirated and sent for culture. No immediate complications.
[2024-01-29] MEDS: Lidocaine HCl 1 % MPF 5 ML VIAL 10 ML SUBCUT (14:57)
[2024-01-29 18:07] LABS: Glucose, Whole Blood 260 mg/dL (60-115)
[2024-01-29] MEDS: Furosemide 40 MG/4 ML VIAL IVPUSH (18:36)
[2024-01-29 21:03] LABS: COVID-19 Test Positive (Negative); IDNOW Serial# 55D5AD1C
[2024-01-29] MEDS: Azithromycin 500 MG in 0.9 % Sodium Chloride 250 ML 125 MG IV (21:24)
[2024-01-29 22:07] LABS: Alanine Aminotransferase 96 U/L (0-40); Alkaline Phosphatase 162 U/L (39-117); Anion Gap 18 (12-20); Aspartate Amino Transferase 106 U/L (5-37); Bilirubin Total 1.1 mg/dL (0.0-1.0); Blood Urea Nitrogen 19 mg/dL (9-16); Calcium 6.7 mg/dL (8.4-10.2); Carbon Dioxide 23 mmol/L (22-29); Chloride 109 mmol/L (96-108); Creatinine Clr Calc Pharmacy 107.6; Estimated Glomerular Filt Rate > 60; Glucose Random 273 mg/dL (60-115); Potassium 3.1 mmol/L (3.3-5.1); Sodium 147 mmol/L (135-145); Total Protein 6.3 g/dL (6.5-8.0)
[2024-01-29 23:42] LABS: Glucose, Whole Blood 241 mg/dL (60-115)
[2024-01-30] VITALS (31 sets, daily range): BP systolic 120–151; BP diastolic 51–81; PULSE 92–129; RESP 20–42; TEMP 36.6–38.3; O2SAT 89–97; BMI 27.0
[2024-01-30] MEDS: Insulin Lispro 100 UNIT/ML 3 ML VIAL SUBCUT ×4 (00:12→18:15)
[2024-01-30] MEDS: 0.9 % Sodium Chloride Flush 3 ML SYRINGE IVFLUSH ×3 (00:12→14:38)
[2024-01-30] MEDS: oxyCODONE HCl Immed Release 5 MG TABLET 10 MG PO ×2 (00:14→11:43)
[2024-01-30] MEDS: diphenhydrAMINE HCL 25 MG CAPSULE PO ×4 (04:40→21:03)
[2024-01-30] MEDS: Piperacillin Sodium/Tazobactam 4.5 GM in 0.9 % Sodium Chloride 100 ML IV ×3 (04:45→21:03)
[2024-01-30 05:06] LABS: VBG Base Excess 6.8 mmol/L; VBG HCO3 27 mmol/L (22-26); VBG pCO2 27 mmHg; VBG pH 7.61 (7.32-7.43); VBG pO2 64 mmHg
[2024-01-30 05:07] LABS: Venous Blood Gas Refer to POC result
[2024-01-30 05:08] LABS: Basophils Absolute Auto 0.1 X10*3/uL (0.0-0.2); Basophils Percent Auto 0.3 % (0-2); Eosinophils Absolute Auto 0.8 X10*3/uL (0.0-0.4); Eosinophils Percent Auto 1.9 % (0-4); Hematocrit 29.9 % (42.0-52.0); Hemoglobin 9.4 g/dl (14.0-18.0); Imm Gran Abs Auto 1.53 X10*3/uL (0.00-0.03); Imm Gran Pct Auto 3.6 % (0.0-0.4); Lymphocytes Percent Auto 4.8 % (20-40); MANUAL DIFF FLAG SCAN; Mean Corpuscular HGB Conc 31.4 g/dl (31.0-36.0); Mean Corpuscular Volume 79.5 fL (80.0-98.0); Mean Platelet Volume 10.6 fL (9.4-12.4); Monocytes Percent Auto 2.3 % (2-11); NRBC Pct Auto 0.1 /100WBC (0.0-0.2); Neutrophils Absolute Auto 37.4 x10*3/uL (2.0-8.3); Neutrophils Percent Auto 87.1 % (45-73); Platelet Count 196 X10*3/uL (160-400); Red Blood Count 3.76 X10*6/uL (4.60-5.80); Red Cell Distribution Width 20.4 % (11.0-16.0); SCAN SMEAR FLAG 1
[2024-01-30 05:29] LABS: Alanine Aminotransferase 80 U/L (0-40); Albumin Level 2.8 g/dL (3.5-5.0); Alkaline Phosphatase 143 U/L (39-117); Anion Gap 17 (12-20); Aspartate Amino Transferase 74 U/L (5-37); Bilirubin Total 1.2 mg/dL (0.0-1.0); Blood Urea Nitrogen 18 mg/dL (9-16); Calcium 6.4 mg/dL (8.4-10.2); Carbon Dioxide 24 mmol/L (22-29); Chloride 109 mmol/L (96-108); Creatinine Clr Calc Pharmacy 114.3; Estimated Glomerular Filt Rate > 60; Glucose Random 224 mg/dL (60-115); Magnesium 1.9 mg/dL (1.6-2.6); Phosphorus 1.6 mg/dL (2.7-4.5); Potassium 2.8 mmol/L (3.3-5.1); Sodium 147 mmol/L (135-145)
[2024-01-30 05:31] LABS: SLIDE REVIEW VERIFIED
[2024-01-30] MEDS: Potassium Phosphate/NS 15 MMOL/250 ML PLAST..BAG 62.5 MMOL IV ×2 (06:21→11:42)
[2024-01-30] MEDS: Calcium Gluconate/NaCl,Iso-Osm 2 GM/100 ML PLAST..BAG IV (06:38)
[2024-01-30 08:24] LABS: White Blood Count 42.9 X10*3/uL (4.8-10.8)
[2024-01-30] MEDS: acetaZOLAMIDE sodium 500 MG VIAL IVPUSH (11:44)
[2024-01-30] MEDS: Famotidine/PF 20 MG/2 ML VIAL IVPUSH ×2 (11:44→21:02)
[2024-01-30] MEDS: Metoprolol Tartrate 25 MG TABLET PO ×2 (11:44→21:03)
[2024-01-30 13:49] LABS: Glucose, Whole Blood 228 mg/dL (60-115)
[2024-01-30] MEDS: fentaNYL citrate/PF 100 MCG/2 ML VIAL 50 MCG IVPUSH ×2 (15:35→18:17)
[2024-01-30 15:44] LABS: Alanine Aminotransferase 70 U/L (0-40); Albumin Level 2.7 g/dL (3.5-5.0); Alkaline Phosphatase 170 U/L (39-117); Anion Gap 18 (12-20); Aspartate Amino Transferase 57 U/L (5-37); Bilirubin Total 1.4 mg/dL (0.0-1.0); Blood Urea Nitrogen 19 mg/dL (9-16); Calcium 6.5 mg/dL (8.4-10.2); Carbon Dioxide 22 mmol/L (22-29); Chloride 112 mmol/L (96-108); Creatinine Clr Calc Pharmacy 92.6; Estimated Glomerular Filt Rate > 60; Glucose Random 233 mg/dL (60-115); Phosphorus 3.6 mg/dL (2.7-4.5); Potassium 3.2 mmol/L (3.3-5.1); Sodium 149 mmol/L (135-145); Total Protein 5.8 g/dL (6.5-8.0)
--- NOTE | 2024-01-30 17:32 | PM.CCPN ---
Subjective Subjective Date of Service: 01/30/24 Critical Care Time (minutes): 40 Comment: Continues to be on high-flow oxygen, breathing about 40 times a minute White count slightly better Physical Exam Vital Signs: Vital Signs: Last Vital Signs Temp 97.8 F 01/30/24 12:00 Pulse 105 H 01/30/24 17:00 Resp 24 H 01/30/24 17:00 BP 127/52 L 01/30/24 17:00 Pulse Ox 94 01/30/24 17:00 O2 Del Method High Flow Nasal C annula 01/30/24 17:00 O2 Flow Rate 60 01/30/24 15:00 FiO2 30 01/30/24 17:00 BMI result Body Mass Index 27.0 General: acute distress, ill appearing and tired appearing Nutritional Appearance: okay nourished and normal weight Eyes: appearance normal, both eyes and all related structures; Alignment and Position: alignment normal and position normal Neck: No lymphadenopathy, no thyromegaly Resp: bilateral air entry equal, occasional added sounds present Cardio: Regular rate, regular rhythm; Heart sounds: S1 normal heart sound present and S2 normal heart sound present GI: soft, nontender, no guarding, no hepatosplenomegaly : bladder normal to inspection, bladder normal to palpation, no renal angle tenderness Skin: no rashes or lesions noted and elasticity normal Neuro: Confused, looks around, no focal deficits, moves all extremities Objective Data Labs 01/30/24 04:57 01/30/24 14:30 Labs: Laboratory Results - last 24 hr 01/29/24 01/29/24 01/29/24 17:53 19:40 21:14 WBC RBC Hgb Hct MCV MCH MCHC RDW Plt Count MPV Immature Gran % (Auto) Neut % (Auto) Lymph % (Auto) [place] % (Auto) Eos % (Auto) Baso % (Auto) Lymph # (Auto) [place] # (Auto) Eos # (Auto) Baso # (Auto) Abs Immat Gran (auto) Absolute Neuts (auto) Absolute Nucleated RBC Nucleated RBC % (auto) Smear Tech's Comments VBG pH VBG pCO2 VBG pO2 VBG HCO3 VBG O2 Saturation VBG Base Excess Sodium 147 H Potassium 3.1 L Chloride 109 H Carbon Dioxide 23 Anion Gap 18 BUN 19 H Creatinine 0.68 Estim Creat Clear Calc 107.6 Estimated GFR > 60 POC Glucose 260 H Random Glucose 273 H Calcium 6.7 L Phosphorus Magnesium Total Bilirubin 1.1 H AST 106 H ALT 96 H Alkaline Phosphatase 162 H Total Protein 6.3 L Albumin 3.0 L COVID-19 ([facility]) Positive A COVID-19 Clin Com See Note 01/29/24 01/30/24 01/30/24 23:36 04:52 04:57 WBC 42.9 H* RBC 3.76 L Hgb 9.4 L Hct 29.9 L MCV 79.5 L MCH 25.0 L MCHC 31.4 RDW 20.4 H Plt Count 196 MPV 10.6 Immature Gran % (Auto) 3.6 H Neut % (Auto) 87.1 H Lymph % (Auto) 4.8 L [place] % (Auto) 2.3 Eos % (Auto) 1.9 Baso % (Auto) 0.3 Lymph # (Auto) 2.0 [place] # (Auto) 1.0 Eos # (Auto) 0.8 H Baso # (Auto) 0.1 Abs Immat Gran (auto) 1.53 H Absolute Neuts (auto) 37.4 H Absolute Nucleated RBC 0.040 H Nucleated RBC % (auto) 0.1 Smear Tech's Comments VERIFIED VBG pH 7.61 H* VBG pCO2 27 VBG pO2 64 VBG HCO3 27 H VBG O2 Saturation 92.0 VBG Base Excess 6.8 Sodium 147 H Potassium 2.8 L* Chloride 109 H Carbon Dioxide 24 Anion Gap 17 BUN 18 H Creatinine 0.64 Estim Creat Clear Calc 114.3 Estimated GFR > 60 POC Glucose 241 H Random Glucose 224 H Calcium 6.4 L Phosphorus 1.6 L Magnesium 1.9 Total Bilirubin 1.2 H AST 74 H ALT 80 H Alkaline Phosphatase 143 H Total Protein 6.0 L Albumin 2.8 L COVID-19 ([facility]IER) COVID-19 Clin Com 01/30/24 01/30/24 13:42 14:30 WBC RBC Hgb Hct MCV MCH MCHC RDW Plt Count MPV Immature Gran % (Auto) Neut % (Auto) Lymph % (Auto) [place] % (Auto) Eos % (Auto) Baso % (Auto) Lymph # (Auto) [place] # (Auto) Eos # (Auto) Baso # (Auto) Abs Immat Gran (auto) Absolute Neuts (auto) Absolute Nucleated RBC Nucleated RBC % (auto) Smear Tech's Comments VBG pH VBG pCO2 VBG pO2 VBG HCO3 VBG O2 Saturation VBG Base Excess Sodium 149 H Potassium 3.2 L Chloride 112 H Carbon Dioxide 22 Anion Gap 18 BUN 19 H Creatinine 0.79 Estim Creat Clear Calc 92.6 Estimated GFR > 60 POC Glucose 228 H Random Glucose 233 H Calcium 6.5 L Phosphorus 3.6 Magnesium 2.0 Total Bilirubin 1.4 H AST 57 H ALT 70 H Alkaline Phosphatase 170 H Total Protein 5.8 L Albumin 2.7 L COVID-19 ([facility]IER) COVID-19 Clin Com Microbiology Microbiology Results: Microbiology 01/25/24 12:04 Pleural Fluid Gram Stain - Final 01/25/24 12:04 Pleural Fluid Routine Culture - Final No growth after 2 days 01/25/24 12:04 Pleural Fluid Anaerobic Culture - Final NO GROWTH AFTER 5 DAYS 01/29/24 Unknown Bile Gram Stain - Final 01/29/24 Unknown Bile Routine Culture - Preliminary No growth to date. 01/29/24 Unknown Bile Anaerobic Culture - Preliminary No growth to date. 01/27/24 10:19 Blood - Venous Blood Culture - Preliminary No growth after 48 hours. 01/27/24 10:19 Blood - Venous Blood Culture - Preliminary No growth after 48 hours. 01/23/24 16:34 Sputum - Suctioned Gram Stain - Final 01/23/24 16:34 Sputum - Suctioned Sputum Culture - Final Pseudomonas aeruginosa 01/21/24 04:03 Blood - Venous Blood Culture - Final No growth after 5 days. 01/21/24 04:03 Blood - Venous Blood Culture - Final No growth after 5 days. Progress Note: A&P Assessment and plan (1) Opioid dependence: Status: Acute (2) Screening for AAA (abdominal aortic aneurysm): Status: Acute (3) Cholecystitis, acute: Status: Acute (4) Non-small cell cancer of left lung: Status: Acute (5) Prostate cancer metastatic to bone: Status: Acute (6) Acute encephalopathy: Status: Acute (7) Acute and chronic respiratory failure with hypoxia: Status: Acute (8) Status post thoracotomy: Status: Acute (9) Hemoptysis: Status: Acute Plan 68-year-old gentleman with past medical history of asthma/COPD overlap syndrome, lung cancer status post lobectomy, and prostate cancer now with metastasis to bone and chest admitted to medical ICU due to acute respiratory failure secondary to COVID-19 and worsening metastasis disease in the lung needing intubation and ventilator support finally extubated on 01/26/2024 currently on high flow oxygen to ease work of breathing. Worsening leukocytosis and transaminitis for which abdominal imaging was performed which showed acute cholecystitis for which she underwent a cholecystostomy tube placement as he was a poor candidate for surgery.. Developed rash over his chest and abdomen possibly secondary to levofloxacin Neuro: Acute encephalopathy possibly due to metabolic encephalopathy Off Precedex for 2 days now Continue oxycodone TID, on valproate 250 mL t.i.d. for further anxiolysis Close neurological status monitoring in the ICU every hour Cardiac: Episodes of SVT: On as needed diltiazem drip, continue p.o. metoprolol 25 mg b.i.d. No episode of SVT in the past 24 hours Respiratory: Acute hypoxemic respiratory failure due to COVID 19 pneumonia and metastatic lung disease s/p left lower lobe lobectomy in August Extubated on 01/26/2024, Currently high-flow oxygen on 50% oxygen at 60 liters/minute to assist with increased work of breathing. Chest tube placed for right-sided pleural effusion which drained about 1000cc of fluid. GI: not clear for feeds by speech, NPO with ice chips had 4 bowel movements last night Acute cholecystitis: Continue Zosyn for antibiotic coverage General surgery consulted, he is a poor candidate for surgery. Status post IR cholecystostomy tube placement Renal: creatinine normal We will closely monitor I's and O's Avoid nephrotoxic medications Hypernatremia: i sodium 149, D5 with 2 amps of bicarb Hypocalcemia: 7.4 this morning, PTH level increased secondary to hypocalcemia replacing as per protocol Heme: Chronic anemia, closely monitor H&H, transfuse for hemoglobin less than 7 grams/deciliter INR normal Endocrine: Blood sugars under control Sliding scale insulin as needed Infectious disease: leukocytosis possibly secondary to acute cholecystitis, stable on slightly better when compared to yesterday sputum cultures positive for pseudomonas Continue Zosyn for Pseudomonas pneumonia and cholecystitis Levofloxacin discontinued due to rash that developed yesterday COVID 19 pneumonia: off dexamethasone due to cholecystitis, and remdesivir. Musculoskeletal: Decubitus ulcer prevention protocol wound care consult for erythema Rash: possibly secondary to levofloxacin Continue oral benadryl 50 q6h and famotidine will hold off on steroids due to acute cholecystitis Lines: peripheral Prophylaxis: Lovenox, pantoprazole Quality Stroke Does the patient have a stroke diagnosis?: No VTE Prior VTE?: No VTE Risk Level:: Medical - moderate - high VTE Device Contraindication: N/A - Device Ordered VTE Drug Contraindication: N/A - Med Ordered
[2024-01-30 18:14] LABS: Glucose, Whole Blood 162 mg/dL (60-115)
[2024-01-31] VITALS (49 sets, daily range): BP systolic 64–128; BP diastolic 32–68; PULSE 80–109; RESP 14–39; TEMP 32–38.3; O2SAT 88–100
[2024-01-31] MEDS: 0.9 % Sodium Chloride Flush 3 ML SYRINGE IVFLUSH ×4 (00:04→21:35)
[2024-01-31] MEDS: oxyCODONE HCl Immed Release 5 MG TABLET 10 MG PO (00:05)
[2024-01-31 00:17] LABS: Glucose, Whole Blood 290 mg/dL (60-115)
[2024-01-31] MEDS: Insulin Lispro 100 UNIT/ML 3 ML VIAL SUBCUT ×3 (00:21→12:03)
[2024-01-31] MEDS: Piperacillin Sodium/Tazobactam 4.5 GM in 0.9 % Sodium Chloride 100 ML IV ×4 (02:27→21:34)
[2024-01-31] MEDS: diphenhydrAMINE HCL 25 MG CAPSULE PO (04:36)
[2024-01-31 05:12] LABS: VBG Base Excess 0.2 mmol/L; VBG HCO3 23 mmol/L (22-26); VBG pCO2 35 mmHg; VBG pH 7.43 (7.32-7.43); VBG pO2 63 mmHg
[2024-01-31 05:13] LABS: Venous Blood Gas Refer to POC result
[2024-01-31 05:24] LABS: Hematocrit 31.1 % (42.0-52.0); Hemoglobin 9.4 g/dl (14.0-18.0); Mean Corpuscular HGB Conc 30.2 g/dl (31.0-36.0); Mean Corpuscular Hemoglobin 24.7 pg (27.0-33.0); Mean Corpuscular Volume 81.8 fL (80.0-98.0); Mean Platelet Volume 11.2 fL (9.4-12.4); NRBC Pct Auto 0.2 /100WBC (0.0-0.2); Platelet Count 225 X10*3/uL (160-400); Red Cell Distribution Width 21.1 % (11.0-16.0); WBC ABN SCTR FOR CBC 1
[2024-01-31 05:30] LABS: White Blood Count 51.1 X10*3/uL (4.8-10.8)
[2024-01-31 05:40] LABS: Albumin Level 2.9 g/dL (3.5-5.0); Anion Gap 17 (12-20); Aspartate Amino Transferase 32 U/L (5-37); Bilirubin Total 1.2 mg/dL (0.0-1.0); Blood Urea Nitrogen 25 mg/dL (9-16); Calcium 6.6 mg/dL (8.4-10.2); Carbon Dioxide 22 mmol/L (22-29); Chloride 115 mmol/L (96-108); Creatinine Clr Calc Pharmacy 83.1; Estimated Glomerular Filt Rate > 60; Glucose Random 244 mg/dL (60-115); Magnesium 2.2 mg/dL (1.6-2.6); Sodium 152 mmol/L (135-145)
[2024-01-31 05:43] LABS: Potassium 2.4 mmol/L (3.3-5.1)
[2024-01-31 05:50] LABS: Band Neutrophils Percent 3 % (3-5); Eosinophils Absolute Manual 0.5 X10*3/uL (0.0-0.4); Eosinophils Percent Manual 1 % (0-4); Large Platelet PRESENT; Lymphocytes Absolute Manual 1.5 X10*3/uL (1.2-4.9); Lymphocytes Percent Manual 3 % (20-40); Monocytes Absolute Manual 0.5 X10*3/uL (0.1-1.2); Monocytes Percent Manual 1 % (2-11); Neutrophils Absolute Manual 48.5 X10*3/uL (2.0-8.3); Neutrophils Percent Manual 92 % (45-73); Platelet Estimate NORMAL (NORMAL); Platelet Morphology Comment NOTED; RBC Morphology NOTED
[2024-01-31 05:51] LABS: Ovalocytes 1+ (5-14) /OIF
[2024-01-31 05:52] LABS: Spherocytes 2+ (3-5) /OIF; Target Cells 1+ (5-14) /OIF
[2024-01-31 05:53] LABS: Hypersegmented Neutrophils PRESENT; Hypochromasia 1+ (5-14) /OIF; Polychromasia 1+ (0-2) /OIF; Toxic Granulation PRESENT; Toxic Vacuolation PRESENT
[2024-01-31 05:54] LABS: Alanine Aminotransferase 57 U/L (0-40); Alkaline Phosphatase 146 U/L (39-117)
[2024-01-31] MEDS: Potassium Chloride/H20 10 MEQ/100 ML PIGGYBACK 100 MEQ IV ×8 (06:14→17:23)
[2024-01-31] MEDS: fentaNYL citrate/PF 100 MCG/2 ML VIAL 50 MCG IVPUSH ×2 (06:14→10:43)
--- NOTE | 2024-01-31 08:21 | ECG_ITS ---
Test Reason : prolonged QTc and ST depression Blood Pressure : / mmHG Vent. Rate : 110 BPM Atrial Rate : 110 BPM P-R Int : 112 ms QRS Dur : 078 ms QT Int : 390 ms P-R-T Axes : 086 006 096 degrees QTc Int : 527 ms Sinus tachycardia with Premature supraventricular complexes Inferior infarct , age undetermined Prolonged QT Abnormal ECG When compared with ECG of 29-JAN-2024 06:01, Nonspecific T wave abnormality no longer evident in Inferior leads Referred By: Rik Borjas Electronically Signed By:LINDA DANIELS MD
[2024-01-31] MEDS: Famotidine/PF 20 MG/2 ML VIAL IVPUSH ×2 (09:42→21:34)
[2024-01-31] MEDS: Metoprolol Tartrate 25 MG TABLET PO (09:44)
--- NOTE | 2024-01-31 10:49 | PM.CCPN ---
Subjective Subjective Date of Service: 01/31/24 Critical Care Time (minutes): 35 Comment: His mental status is slightly worse when compared to yesterday where he can speak much words Increase in the FiO2 on the non-rebreather, chest x-ray shows collapse of the left lower lobe we will place him on BiPAP support. After placing him on BiPAP his blood pressures dropped so he is on vasopressor support Physical Exam Vital Signs: Vital Signs: Last Vital Signs Temp 97.7 F 01/31/24 09:00 Pulse 101 H 01/31/24 10:00 Resp 23 H 01/31/24 10:00 BP 106/52 L 01/31/24 10:00 Pulse Ox 88 L 01/31/24 10:00 O2 Del Method High Flow Nasal C annula 01/31/24 10:00 O2 Flow Rate 60 01/31/24 10:00 FiO2 50 01/31/24 10:00 BMI result Body Mass Index 27.0 General: In acute distress, ill appearing and tired appearing Nutritional Appearance: Underweight and emaciated Eyes: appearance normal, both eyes and all related structures; Alignment and Position: alignment normal and position normal Neck: No lymphadenopathy, no thyromegaly Resp: bilateral air entry equal, bilateral crackles heard, decreased breath sounds in the left lung area Cardio: Regular rate, regular rhythm; Heart sounds: S1 normal heart sound present and S2 normal heart sound present GI: soft, nontender, no guarding, no hepatosplenomegaly : bladder normal to inspection, bladder normal to palpation, no renal angle tenderness Skin: no rashes or lesions noted and elasticity normal Neuro: oriented to person, no focal deficits and moves all extremities Objective Data Labs 01/31/24 05:05 01/31/24 05:05 Labs: Laboratory Results - last 24 hr 01/30/24 01/30/24 01/30/24 13:42 14:30 18:10 WBC RBC Hgb Hct MCV MCH MCHC RDW Plt Count MPV Immature Gran % (Auto) Neut % (Auto) Lymph % (Auto) Sherman % (Auto) Eos % (Auto) Baso % (Auto) Lymph # (Auto) Sherman # (Auto) Eos # (Auto) Baso # (Auto) Abs Immat Gran (auto) Absolute Neuts (auto) Absolute Nucleated RBC Nucleated RBC % (auto) Neutrophils % (Manual) Band Neutrophils % Lymphocytes % (Manual) Monocytes % (Manual) Eosinophils % (Manual) Abs Neuts (Manual) Lymphocytes # (Manual) Monocytes # (Manual) Eosinophils # (Manual) Hypersegmented Neuts Toxic Granulation Toxic Vacuolation Platelet Estimate Large Platelets Plt Morphology Comment RBC Morphology Polychromasia Hypochromasia Spherocytes Target Cells Ovalocytes VBG pH VBG pCO2 VBG pO2 VBG HCO3 VBG O2 Saturation VBG Base Excess Sodium 149 H Potassium 3.2 L Chloride 112 H Carbon Dioxide 22 Anion Gap 18 BUN 19 H Creatinine 0.79 Estim Creat Clear Calc 92.6 Estimated GFR > 60 POC Glucose 228 H 162 H Random Glucose 233 H Calcium 6.5 L Phosphorus 3.6 Magnesium 2.0 Total Bilirubin 1.4 H AST 57 H ALT 70 H Alkaline Phosphatase 170 H Total Protein 5.8 L Albumin 2.7 L 01/31/24 01/31/24 01/31/24 00:06 05:00 05:05 WBC 51.1 H* RBC 3.80 L Hgb 9.4 L Hct 31.1 L MCV 81.8 MCH 24.7 L MCHC 30.2 L RDW 21.1 H Plt Count 225 MPV 11.2 Immature Gran % (Auto) Cancelled Neut % (Auto) Cancelled Lymph % (Auto) Cancelled Sherman % (Auto) Cancelled Eos % (Auto) Cancelled Baso % (Auto) Cancelled Lymph # (Auto) Cancelled Sherman # (Auto) Cancelled Eos # (Auto) Cancelled Baso # (Auto) Cancelled Abs Immat Gran (auto) Cancelled Absolute Neuts (auto) Cancelled Absolute Nucleated RBC 0.110 H Nucleated RBC % (auto) 0.2 Neutrophils % (Manual) 92 H Band Neutrophils % 3 Lymphocytes % (Manual) 3 L Monocytes % (Manual) 1 L Eosinophils % (Manual) 1 Abs Neuts (Manual) 48.5 H Lymphocytes # (Manual) 1.5 Monocytes # (Manual) 0.5 Eosinophils # (Manual) 0.5 H Hypersegmented Neuts PRESENT Toxic Granulation PRESENT Toxic Vacuolation PRESENT Platelet Estimate NORMAL Large Platelets PRESENT Plt Morphology Comment NOTED RBC Morphology NOTED Polychromasia 1+ (0-2) Hypochromasia 1+ (5-14) Spherocytes 2+ (3-5) Target Cells 1+ (5-14) Ovalocytes 1+ (5-14) VBG pH 7.43 VBG pCO2 35 VBG pO2 63 VBG HCO3 23 VBG O2 Saturation 89.0 VBG Base Excess 0.2 Sodium 152 H Potassium 2.4 L* D Chloride 115 H Carbon Dioxide 22 Anion Gap 17 BUN 25 H Creatinine 0.88 Estim Creat Clear Calc 83.1 Estimated GFR > 60 POC Glucose 290 H Random Glucose 244 H Calcium 6.6 L Phosphorus 3.0 Magnesium 2.2 Total Bilirubin 1.2 H AST 32 ALT 57 H Alkaline Phosphatase 146 H Total Protein 6.0 L Albumin 2.9 L Microbiology Microbiology Results: Microbiology 01/29/24 Unknown Bile Gram Stain - Final 01/29/24 Unknown Bile Routine Culture - Final No growth after 2 days 01/29/24 Unknown Bile Anaerobic Culture - Preliminary No growth to date. 01/25/24 12:04 Pleural Fluid Gram Stain - Final 01/25/24 12:04 Pleural Fluid Routine Culture - Final No growth after 2 days 01/25/24 12:04 Pleural Fluid Anaerobic Culture - Final NO GROWTH AFTER 5 DAYS 01/27/24 10:19 Blood - Venous Blood Culture - Preliminary No growth after 48 hours. 01/27/24 10:19 Blood - Venous Blood Culture - Preliminary No growth after 48 hours. 01/23/24 16:34 Sputum - Suctioned Gram Stain - Final 01/23/24 16:34 Sputum - Suctioned Sputum Culture - Final Pseudomonas aeruginosa 01/21/24 04:03 Blood - Venous Blood Culture - Final No growth after 5 days. 01/21/24 04:03 Blood - Venous Blood Culture - Final No growth after 5 days. Progress Note: A&P Assessment and plan (1) Non-small cell cancer of left lung: Status: Acute (2) Non-small cell carcinoma of lung: Status: Acute (3) Acute encephalopathy: Status: Acute (4) Cervical neck pain with evidence of disc disease: Status: Acute (5) Acute and chronic respiratory failure with hypoxia: Status: Acute (6) Status post thoracotomy: Status: Acute (7) Opioid dependence: Status: Acute (8) Screening for AAA (abdominal aortic aneurysm): Status: Acute Plan 68-year-old gentleman with past medical history of asthma/COPD overlap syndrome, lung cancer status post left lower lung lobectomy, and prostate cancer now with metastasis to bone and chest admitted to medical ICU due to acute respiratory failure secondary to COVID-19 and worsening metastasis disease in the lung needing intubation and ventilator support finally extubated on 01/26/2024 currently on high flow oxygen to ease work of breathing. Worsening leukocytosis and transaminitis for which abdominal imaging was performed which showed acute cholecystitis for which she underwent a cholecystostomy tube placement as he was a poor candidate for surgery.. Developed rash over his chest and abdomen possibly secondary to levofloxacin. On 01/31/2024 his oxygen requirement on the high-flow increased, chest x-ray showed left lower lung collapse placed on BiPAP following which he became hypotensive so Levophed is added. Neuro: Acute encephalopathy possibly due to metabolic encephalopathy Continue oxycodone TID, on valproate 250 mL t.i.d. for further anxiolysis Close neurological status monitoring in the ICU every hour Cardiac: Shock: Possibly secondary to positive pressure ventilation Placing the patient on phenylephrine drip as Levophed can trigger his SVTs and NSVTs Episodes of SVT/NSVTs: Was previously treated with as needed diltiazem drip, p.o. metoprolol 25 mg b.i.d. No episode of SVT in the past 24 hours Respiratory: Acute hypoxemic respiratory failure due to COVID 19 pneumonia and metastatic lung disease s/p left lower lobe lobectomy in August Extubated on 01/26/2024, on high-flow oxygen since then Today his oxygen requirement increased as well as work of breathing, chest x-ray showed left lower lobe collapse so we are placing him on a BiPAP support with a good PEEP to open up the collapsed lung. We will try to reach his daughter Sierra who is his healthcare proxy to further discuss about goals of care, she did not supervisor picking crew her phone this morning. Chest tube placed for right-sided pleural effusion which drained about 1000cc of fluid. GI: not clear for feeds by speech, NPO with ice chips had 4 bowel movements last night Acute cholecystitis: Continue Zosyn for antibiotic coverage General surgery consulted, he is a poor candidate for surgery. Status post IR cholecystostomy tube placement Renal: creatinine normal We will closely monitor I's and O's Avoid nephrotoxic medications Hypernatremia: Sodium increased to 152, we will switch the fluids to D5 water at 75 cc/hour We will repeat a set of labs this afternoon Hypokalemia: Potassium 2.4, replaced as per protocol We will also add magnesium sulfate 2 g Hypocalcemia: 7.4 this morning, PTH level increased secondary to hypocalcemia replacing as per protocol Heme: Chronic anemia, closely monitor H&H, transfuse for hemoglobin less than 7 grams/deciliter INR normal Endocrine: Blood sugars under control Sliding scale insulin as needed Infectious disease: leukocytosis possibly secondary to acute cholecystitis, if he gets intubated are stable enough to be moved to CT we will get a CT chest abdomen and pelvis sputum cultures positive for pseudomonas Continue Zosyn for Pseudomonas pneumonia and cholecystitis Levofloxacin discontinued due to rash that developed yesterday COVID 19 pneumonia: off dexamethasone due to cholecystitis, and remdesivir. Musculoskeletal: Decubitus ulcer prevention protocol wound care consult for erythema Rash: possibly secondary to levofloxacin Continue famotidine , oral Benadryl stopped due to altered mental status will hold off on steroids due to acute cholecystitis Lines: peripheral Prophylaxis: Lovenox, pantoprazole Quality Stroke Does the patient have a stroke diagnosis?: No VTE Prior VTE?: No VTE Risk Level:: Medical - moderate - high VTE Device Contraindication: N/A - Device Ordered VTE Drug Contraindication: N/A - Med Ordered
[2024-01-31] MEDS: HYDROmorphone HCl 0.5 MG/0.5 ML SYRINGE IVPUSH (11:25)
[2024-01-31] MEDS: Phenylephrine HCL 20 MG in 0.9 % Sodium Chloride 250 ML 33.19 MG IVCONT (11:34)
[2024-01-31] MEDS: Dextrose 5 % 1,000 ML 75 ML IVCONT (12:01)
[2024-01-31] MEDS: Magnesium Sulfate/H2O 2 GM/50 ML PIGGYBACK IV (12:01)
[2024-01-31 12:11] LABS: Glucose, Whole Blood 219 mg/dL (60-115)
[2024-01-31] MEDS: dexmedeTOMIDidine HCL/NS 400 MCG/100 ML INFUS..BTL 21.88 MCG IVCONT ×2 (14:23→18:29)
[2024-01-31] MEDS: Phenylephrine HCL 20 MG in 0.9 % Sodium Chloride 250 ML 132.75 MG IVCONT (16:11)
[2024-01-31 17:28] LABS: Glucose, Whole Blood 192 mg/dL (60-115)
[2024-01-31 17:28] LABS: Alanine Aminotransferase 39 U/L (0-40); Albumin Level 2.6 g/dL (3.5-5.0); Alkaline Phosphatase 170 U/L (39-117); Anion Gap 19 (12-20); Aspartate Amino Transferase 33 U/L (5-37); Bilirubin Total 0.9 mg/dL (0.0-1.0); Blood Urea Nitrogen 35 mg/dL (9-16); Carbon Dioxide 20 mmol/L (22-29); Chloride 117 mmol/L (96-108); Creatinine Clr Calc Pharmacy 56.3; Estimated Glomerular Filt Rate 55; Glucose Random 224 mg/dL (60-115); Potassium 6.1 mmol/L (3.3-5.1); Sodium 150 mmol/L (135-145); Total Protein 5.9 g/dL (6.5-8.0)
[2024-01-31] MEDS: Phenylephrine HCL 20 MG in 0.9 % Sodium Chloride 250 ML 199.13 MG IVCONT (18:28)
[2024-01-31] MEDS: Rocuronium Bromide 50 MG/5 ML VIAL 30 MG IVPUSH (20:15)
[2024-01-31] MEDS: Phenylephrine HCL 20 MG in 0.9 % Sodium Chloride 250 ML 331.88 MG IVCONT (20:30)
--- NOTE | 2024-01-31 21:54 | PM.CCN ---
Critical Care Event Note Summary Date of Service: 01/31/24 Code activated: No Narrative: This case had a high probability of a clinically significant, sudden, or life threatening deterioration of this patient's condition which required my full and direct attention, intervention and personal management. Critical Care Time (minutes): 30 Comment: The patient has had a significant respiratory decline throughout the day, requiring intermittent changes between OxyMask and BiPAP, currently the patient appears to be struggling to breathe and although he satting between 85 and 89%, the patient is using accessory muscles, clearly working very hard to breathe. The above-mentioned information was shared with the patient's and daughter both of whom are at bedside, they do acknowledge that the patient does not look well and his mental status has changed significantly as well. Rather than waiting for the patient to deteriorate even further and have to deal with the crush airway, and after answering all their questions, they have agreed to a elective intubation. They are aware that this is the 2nd intubation and that there is no guarantees the patient will be able to be weaned off the ventilator. They also agreed to any type of emergent procedures that might be needed for the patient including a central line, bronchoscopy if needed in the future. At this point we will proceed with rapid sequence intubation as well as a placement of a central line. Critical care time used for critical evaluation of this patient, diagnosis, treatment and coordination of care, review her records and documentation TOTAL CRITICAL CARE TIME 30 MIN . discussion and coordination with consultants, completely separate from any procedures performed. . Patient's care was discussed in detail with Dr. Borjas. He is aware of all the above as well as the plan of care for this patient..
--- NOTE | 2024-01-31 21:54 | W.PM.CCHP ---
Procedures Date of Service Date of Service: 01/31/24 Intubation Intubation Comments: decompensation and worsening of hypoxic resp failure as well as worsen encephalopathy Consent for Procedure: Elective - informed consent obtained (from the patients and daughter ) Time out performed: Yes Sedative: propofol Mg given: 100 Paralytic: rocuronium Mg given: 30 Laryngoscope: fiber optic video scope ET tube size: 7.5 ET tube uncuffed: Yes Tube secured depth (cm): 23 Tube secured location: lips Tube placement confirmation: visualized tube passing through cords, equal breath sounds bilaterally, no breath sounds over epigastrium and confirmation by capnometry Patient tolerated procedure: well, no complications and other (CXR shows ET tip at about 6-7 cm above the rolly so it was advanced to 26 cm at the lip) Intubation complications: none
[2024-01-31] MEDS: Norepinephrine Bitartrate/NS 32 MG/250 ML PLAST..BAG IVCONT (21:55)
--- NOTE | 2024-01-31 21:58 | W.PM.CCHP ---
Procedures Date of Service Date of Service: 01/31/24 Central Line Placement Right IJ: Consent for Procedure: Elective - informed consent obtained (from pts and daughter) Time out performed: Yes Sterile Technique Used: Yes Patient placed on monitor/pulse ox: Yes MD prep: mask, gown and gloves Central line prep: Chlorhexidine scrub Ultrasound used for placement: Yes Central line lumen inserted: triple (16 cm) Post procedure: sutured in place, good blood return, all ports aspirated, flushed, capped and sterile dressing applied Post procedure x-ray: tip of catheter in good position and no pneumothorax seen Patient tolerated procedure: well and no complications Complications: none
[2024-01-31] MEDS: fentaNYL citrate/NS 1,000 MCG/100 ML PLAST..BAG 2.5 MCG IVCONT (21:59)
[2024-01-31] MEDS: Phenylephrine HCL 100 MG in 0.9 % Sodium Chloride 250 ML 6.85 MG IVCONT (22:27)
[2024-01-31] MEDS: propofoL 200 MG/20 ML VIAL 100 MG IVPUSH (22:45)
[2024-01-31 22:59] LABS: VBG Base Excess -6.9 mmol/L; VBG HCO3 21 mmol/L (22-26); VBG pCO2 58 mmHg; VBG pH 7.17 (7.32-7.43); VBG pO2 55 mmHg
[2024-01-31 23:02] LABS: Basophils Absolute Auto 0.2 X10*3/uL (0.0-0.2); Basophils Percent Auto 0.3 % (0-2); Eosinophils Absolute Auto 0.2 X10*3/uL (0.0-0.4); Eosinophils Percent Auto 0.4 % (0-4); Hematocrit 34.4 % (42.0-52.0); Hemoglobin 9.6 g/dl (14.0-18.0); Imm Gran Abs Auto 2.25 X10*3/uL (0.00-0.03); Imm Gran Pct Auto 4.5 % (0.0-0.4); MANUAL DIFF FLAG SCAN; Mean Corpuscular HGB Conc 27.9 g/dl (31.0-36.0); Mean Corpuscular Hemoglobin 24.7 pg (27.0-33.0); Mean Corpuscular Volume 88.4 fL (80.0-98.0); Mean Platelet Volume 10.7 fL (9.4-12.4); Monocytes Absolute Auto 1.2 X10*3/uL (0.1-1.2); Monocytes Percent Auto 2.3 % (2-11); NRBC Pct Auto 0.5 /100WBC (0.0-0.2); Neutrophils Absolute Auto 44.6 x10*3/uL (2.0-8.3); Neutrophils Percent Auto 88.5 % (45-73); Platelet Count 269 X10*3/uL (160-400); Red Blood Count 3.89 X10*6/uL (4.60-5.80); Red Cell Distribution Width 21.2 % (11.0-16.0); SCAN SMEAR FLAG 1
[2024-01-31 23:05] LABS: White Blood Count 50.4 X10*3/uL (4.8-10.8)
[2024-01-31 23:17] LABS: Venous Blood Gas Refer to POC result
[2024-01-31 23:20] LABS: SLIDE REVIEW VERIFIED
[2024-01-31 23:21] LABS: Alanine Aminotransferase 36 U/L (0-40); Albumin Level 2.6 g/dL (3.5-5.0); Alkaline Phosphatase 169 U/L (39-117); Anion Gap 15 (12-20); Aspartate Amino Transferase 33 U/L (5-37); Blood Urea Nitrogen 39 mg/dL (9-16); Calcium 5.8 mg/dL (8.4-10.2); Carbon Dioxide 22 mmol/L (22-29); Chloride 116 mmol/L (96-108); Creatinine Clr Calc Pharmacy 44.9; Estimated Glomerular Filt Rate 42; Glucose Random 259 mg/dL (60-115); Magnesium 2.8 mg/dL (1.6-2.6); Phosphorus 6.5 mg/dL (2.7-4.5); Potassium 4.2 mmol/L (3.3-5.1); Sodium 149 mmol/L (135-145); Total Protein 5.8 g/dL (6.5-8.0)
[2024-01-31] MEDS: Albumin Human 25 % 100 ML 133.33 ML IV (23:51)
[2024-02-01] VITALS (47 sets, daily range): BP systolic 88–146; BP diastolic 37–61; PULSE 72–124; RESP 13–31; TEMP 32–39.8; O2SAT 91–100; BMI 27.3
[2024-02-01 00:01] LABS: Glucose, Whole Blood 209 mg/dL (60-115)
[2024-02-01] MEDS: Calcium Gluconate/NaCl,Iso-Osm 2 GM/100 ML PLAST..BAG IV ×2 (00:20→07:36)
[2024-02-01] MEDS: Dextrose 5 % 1,000 ML 75 ML IVCONT (00:24)
[2024-02-01] MEDS: Albumin Human 25 % 100 ML 133.33 ML IV (00:30)
[2024-02-01] MEDS: propofoL 1,000 MG/100 ML VIAL 21.07 MG IVCONT ×7 (00:35→23:49)
[2024-02-01] MEDS: Lactated Ringers 500 ML 999 ML IV (01:20)
[2024-02-01] MEDS: Insulin Lispro 100 UNIT/ML 3 ML VIAL SUBCUT ×5 (01:23→23:56)
[2024-02-01] MEDS: Piperacillin Sodium/Tazobactam 4.5 GM in 0.9 % Sodium Chloride 100 ML IV ×3 (02:03→17:58)
[2024-02-01] MEDS: Phenylephrine HCL 100 MG in 0.9 % Sodium Chloride 250 ML 75.33 MG IVCONT (02:07)
[2024-02-01 04:51] LABS: VBG Base Excess -7.1 mmol/L; VBG HCO3 20 mmol/L (22-26); VBG pCO2 46 mmHg; VBG pH 7.23 (7.32-7.43); VBG pO2 83 mmHg
[2024-02-01 04:54] LABS: Venous Blood Gas Refer to POC result
[2024-02-01 05:06] LABS: Hematocrit 29.9 % (42.0-52.0); Hemoglobin 8.4 g/dl (14.0-18.0); Mean Corpuscular HGB Conc 28.1 g/dl (31.0-36.0); Mean Corpuscular Hemoglobin 24.9 pg (27.0-33.0); Mean Corpuscular Volume 88.7 fL (80.0-98.0); Mean Platelet Volume 10.7 fL (9.4-12.4); NRBC Pct Auto 0.8 /100WBC (0.0-0.2); Platelet Count 241 X10*3/uL (160-400); Red Blood Count 3.37 X10*6/uL (4.60-5.80); Red Cell Distribution Width 20.7 % (11.0-16.0)
[2024-02-01 05:08] LABS: WBC ABN SCTR FOR CBC 1
[2024-02-01 05:10] LABS: White Blood Count 44.8 X10*3/uL (4.8-10.8)
[2024-02-01] MEDS: Enoxaparin Sodium 40 MG/0.4 ML SYRINGE SUBCUT (05:13)
[2024-02-01 05:24] LABS: Albumin Level 3.1 g/dL (3.5-5.0); Anion Gap 20 (12-20); Aspartate Amino Transferase 41 U/L (5-37); Bilirubin Total 1.3 mg/dL (0.0-1.0); Blood Urea Nitrogen 43 mg/dL (9-16); Calcium 6.1 mg/dL (8.4-10.2); Carbon Dioxide 19 mmol/L (22-29); Chloride 114 mmol/L (96-108); Creatinine Clr Calc Pharmacy 34.6; Estimated Glomerular Filt Rate 31; Glucose Random 244 mg/dL (60-115); Magnesium 2.7 mg/dL (1.6-2.6); Phosphorus 5.5 mg/dL (2.7-4.5); Potassium 3.8 mmol/L (3.3-5.1); Sodium 149 mmol/L (135-145); Total Protein 5.7 g/dL (6.5-8.0)
[2024-02-01 05:40] LABS: Alanine Aminotransferase 27 U/L (0-40); Alkaline Phosphatase 230 U/L (39-117)
[2024-02-01 05:43] LABS: Glucose, Whole Blood 213 mg/dL (60-115)
[2024-02-01 05:49] LABS: Band Neutrophils Percent 3 % (3-5); Eosinophils Absolute Manual 1.3 X10*3/uL (0.0-0.4); Eosinophils Percent Manual 3 % (0-4); Lymphocytes Absolute Manual 2.2 X10*3/uL (1.2-4.9); Lymphocytes Percent Manual 5 % (20-40); Neutrophils Absolute Manual 41.2 X10*3/uL (2.0-8.3); Neutrophils Percent Manual 89 % (45-73); Nucleated Red Blood Cells 2 /100WBC (0-0)
[2024-02-01 05:50] LABS: Platelet Estimate NORMAL (NORMAL); RBC Morphology NOTED
[2024-02-01 05:51] LABS: Ovalocytes 1+ (5-14) /OIF; Platelet Morphology Comment NORMAL; Schistocytes 1+ (0-2) /OIF
[2024-02-01 05:52] LABS: Basophilic Stippling 1+ (0-2) /OIF; Burr Cells 1+ (0-2) /OIF; Hypersegmented Neutrophils PRESENT; Hypochromasia 1+ (5-14) /OIF; Polychromasia 1+ (0-2) /OIF; Tear Drop Cells 1+ (0-2) /OIF; Toxic Granulation PRESENT
[2024-02-01 05:53] LABS: Toxic Vacuolation PRESENT
[2024-02-01] MEDS: Albuterol/Iprat 2.5/0.5MG 3 ML AMPUL.NEB INHALE ×3 (05:59→20:14)
[2024-02-01] MEDS: Albumin Human 25 % 100 ML IV ×2 (06:12→06:46)
[2024-02-01] MEDS: Sodium Bicarbonate 8.4% 150 MEQ in Dextrose 5 % 850 ML 100 MEQ IV (06:13)
[2024-02-01] MEDS: Dextrose 10 % 250 ML 750 ML IV (06:27)
[2024-02-01] MEDS: Vasopressin 20 UNIT/100 ML INFUS..BTL 12 UNIT IVCONT ×3 (06:28→19:38)
--- NOTE | 2024-02-01 07:00 | CA_ITS ---
Transthoracic Echocardiogram Patient (Last, First, Middle): Gary Raphael J Gender: Male Date of : 1955 Age: 68 Procedure Date: 02/01/2024 Procedure Type: Transthoracic Echocardiogram Location: ICU Height: 180.34 cm Weight: 88.45 kg BSA: 2.09 m2 Heart Rate: 76 bpm BP: 113 / 47 mmHg Air And Water Tester: TAPAN Referring MD: Rosa Maria Balderas MD Symptoms: hypoxia, Please Assess Function Study Quality: Adequate w contrast ECG Rhythm: Sinus Conclusions: - The left ventricular systolic function is normal. The calculated ejection fraction is 69% by biplane method. - There is moderate septal asymmetric hypertrophy. - Aortic valve calcification but no significant stenosis. Findings Procedure Information Contrast agent, definity, is being given per protocol without apparent complications. The quality of the study was technically difficult. The study quality is limited by patients body habitus and the presence of a ventilator. Left Ventricle Normal left ventricular cavity size. The left ventricular systolic function is normal. The calculated ejection fraction is 69% by biplane method. There is no evidence of regional wall motion abnormalities. Diastolic function is normal for age. There is moderate septal asymmetric hypertrophy. Right Ventricle Moderately increased right ventricular cavity size. There is normal right ventricular systolic function. Atria Both atria are normal in size. Aortic Valve There is moderate calcification of the aortic valve. There is no aortic valve stenosis. There is no aortic valve regurgitation. Mitral Valve The mitral valve appears normal. There is no mitral valve regurgitation. There is no mitral valve stenosis. Pulmonic Valve The pulmonic valve is likely normal. Tricuspid Valve There is mild tricuspid valve regurgitation. Mild pulmonary hypertension is present. Great Vessels The sinuses of valsalva and asc aorta are normal in size. Small plaque is seen in the sino tubular ridge. Venous The inferior vena cava is normal in size and collapses less than 50% with inspiration. (on ventilator). Pericardium/Pleural There is no evidence of pericardial effusion. Prior Study Comparison No prior study available for comparison. Measurements 2D Linear Measurements IVSd: 1.54 0.6-0.9/0.6-1.0 cm LVIDd: 4.77 3.9-5.3/4.2-5.9 cm LVIDd Index: 2.28 2.4-3.2/2.2-3.1 cm/m2 LVIDs: 2.88 2.0-3.6 cm LVPWd: 0.85 0.7-1.1 cm LA Diam: 3.40 2.7-3.8/3.0-4.0 cm LAIDs Index: 1.63 1.5-2.3 cm/m2 LV Mass: 268.55 67-162/88-224 g LV Mass Index: 128.49 43-95/49-115 g/m2 LVOT Diam: 2.10 3.0+(-)1.3 cm 2D Systolic Function EF 4C: 66.40 >55% EF 2C: 69.60 >55% EF BiP: 69.40 >55% Mitral Valve MV Pk E: 0.93 MV PK A: 0.73 MV Decel Time: 180.00 E/A: 1.30 E'Lateral: 8.59 E'Medial: 6.74 E/E' Med: 13.70 E/E' Lat: 10.80 PHT: 53.00 MVA PHT: 4.15 Decel Richardson: 5.13 Aortic Valve AoV Pk Gilbert: 2.01 AoV Pk Grad: 16.00 JUD: 2.69 LVOT LVOT Pk Gilbert: 1.39 LVOT Mn Gilbert: 1.05 LVOT VTI: 0.26 LVOT Pk Grad: 8.00 LVOT Mn Grad: 5.00 LVOT Diam: 2.10 LVOT Area: 3.46 Diastolic Function MV Pk E: 0.93 MV Pk A: 0.73 E/A: 1.30 E'Medial: 6.74 E/E' Med: 13.70 E' Laterial: 8.59 E/E' Lat: 10.80 Right Ventricle TAPSE (mm): 26.90 TVS' Gilbert: 20.40 Tricuspid Valve TR Pk Gilbert: 2.79 TR Pk Grad: 31.00 RA Press: 8.00 RVSP: 39.00 Great Vessels Aorta Sinus of Valsalva: 3.80 2.0-3.5 cm Ao Asc: 3.60 2.1-3.4 cm Pulmonary Veins Pulm Vein S/D 1.60 Pulmonary Valve PV Pk Gilbert: 0.88 Peak PV Grad: 3.00 Updated in Other Vendor System with Status of Final Dennis Parsons MD electronically signed on 02/01/2024 11:24:41 AM with status of Final
--- NOTE | 2024-02-01 07:27 | PC.NURSE ---
Pt A to self, not following commands, not tracking, not speaking when this RN to over care. Approx 1999 PA decided to emergently intubate pt d/t respiratory status (accessory breathing, etc see PA's note). Respiratory, this RN, and another RN bedside to assist. Pt tolerated well, ett 7.5, initially 25 @lip but after xray, was pulled back to 22 @ lip. PA inserted triple lumen R IJ, time out called and pt verified, pt tolerated well. See MAR for med administration and titrations. bedside overnight, all questions answered to the best of this RN's ability. Pt appeared comfortable and in no distress throughout the night. Safety maintained throughout shift.
[2024-02-01] MEDS: 0.9 % Sodium Chloride Flush 3 ML SYRINGE IVFLUSH ×2 (07:36→15:25)
[2024-02-01] MEDS: Famotidine/PF 20 MG/2 ML VIAL IVPUSH (07:37)
--- NOTE | 2024-02-01 09:08 | MHC.CM.PN ---
Patient remains in ICU care. No dc planning at this time. CM will continue to follow.
--- NOTE | 2024-02-01 09:23 | P.PNCC_ITS ---
Subjective Subjective Date of Service: 02/01/24 Critical Care Time (minutes): 60 Physical Exam 2 Vital Signs: Vital Signs: Last Vital Signs Temp 101.3 F H 02/01/24 09:00 Pulse 98 02/01/24 09:01 Resp 18 02/01/24 09:00 BP 88/39 L 02/01/24 09:01 Pulse Ox 98 02/01/24 09:00 O2 Del Method Mechanical Ventil ation 02/01/24 09:00 O2 Flow Rate 60 01/31/24 19:00 FiO2 75 02/01/24 09:00 BMI result Body Mass Index 27.3 Const: Other: intubated, sedated General: no acute distress HEENT: Head: Yes normal to inspection, Yes normocephalic and Yes atraumatic Eyes: General: appearance normal, both eyes and all related structures Neck: Neck: Yes normal visual inspection, Yes full ROM, Yes no meningeal signs, Yes trachea midline and Yes supple Chest: Chest palpation & inspection: normal inspection of the chest Resp: Other: some appreciable rales, rhonchi; no appreciable wheezing Cardio: Rate: regular rate Rhythm: regular rhythm GI: Inspection: Yes normal to inspection, No Abdominal wall edema and No distended Palpation (GI): Soft to palpation, not firm, nontender, no guarding and not rigid Skin: General skin exam: no rashes or lesions noted Neuro: General: tone normal and no meningeal signs Extrem: General: Yes normal to inspection, Yes full ROM, Yes capillary refill normal and Yes no clubbing, cyanosis or edema Psych: Other: unable to assess Objective Data Labs 02/01/24 04:28 02/01/24 04:28 Labs: Laboratory Results - last 24 hr 01/31/24 01/31/24 01/31/24 12:00 16:54 17:23 WBC RBC Hgb Hct MCV MCH MCHC RDW Plt Count MPV Immature Gran % (Auto) Neut % (Auto) Lymph % (Auto) [place] % (Auto) Eos % (Auto) Baso % (Auto) Lymph # (Auto) [place] # (Auto) Eos # (Auto) Baso # (Auto) Abs Immat Gran (auto) Absolute Neuts (auto) Absolute Nucleated RBC Nucleated RBC % (auto) Neutrophils % (Manual) Band Neutrophils % Lymphocytes % (Manual) Eosinophils % (Manual) Abs Neuts (Manual) Lymphocytes # (Manual) Eosinophils # (Manual) Nucleated RBCs Hypersegmented Neuts Toxic Granulation Toxic Vacuolation Platelet Estimate Plt Morphology Comment RBC Morphology Polychromasia Hypochromasia Basophilic Stippling Tear Drop Cells Ovalocytes Carmen Cells Schistocytes Smear Tech's Comments VBG pH VBG pCO2 VBG pO2 VBG HCO3 VBG O2 Saturation VBG Base Excess Sodium 150 H Potassium 6.1 H* D Chloride 117 H Carbon Dioxide 20 L Anion Gap 19 BUN 35 H Creatinine 1.30 Estim Creat Clear Calc 56.3 Estimated GFR 55 POC Glucose 219 H 192 H Random Glucose 224 H Calcium 6.0 L* D Phosphorus Magnesium Total Bilirubin 0.9 AST 33 ALT 39 Alkaline Phosphatase 170 H Total Protein 5.9 L Albumin 2.6 L 01/31/24 01/31/24 01/31/24 22:47 22:54 23:57 WBC 50.4 H* RBC 3.89 L Hgb 9.6 L Hct 34.4 L MCV 88.4 D MCH 24.7 L MCHC 27.9 L RDW 21.2 H Plt Count 269 MPV 10.7 Immature Gran % (Auto) 4.5 H Neut % (Auto) 88.5 H Lymph % (Auto) 4.0 L [place] % (Auto) 2.3 Eos % (Auto) 0.4 Baso % (Auto) 0.3 Lymph # (Auto) 2.0 [place] # (Auto) 1.2 Eos # (Auto) 0.2 Baso # (Auto) 0.2 Abs Immat Gran (auto) 2.25 H Absolute Neuts (auto) 44.6 H Absolute Nucleated RBC 0.250 H Nucleated RBC % (auto) 0.5 H Neutrophils % (Manual) Band Neutrophils % Lymphocytes % (Manual) Eosinophils % (Manual) Abs Neuts (Manual) Lymphocytes # (Manual) Eosinophils # (Manual) Nucleated RBCs Hypersegmented Neuts Toxic Granulation Toxic Vacuolation Platelet Estimate Plt Morphology Comment RBC Morphology Polychromasia Hypochromasia Basophilic Stippling Tear Drop Cells Ovalocytes Carmen Cells Schistocytes Smear Tech's Comments VERIFIED VBG pH 7.17 L* VBG pCO2 58 VBG pO2 55 VBG HCO3 21 L VBG O2 Saturation 75.0 VBG Base Excess -6.9 Sodium 149 H Potassium 4.2 D Chloride 116 H Carbon Dioxide 22 Anion Gap 15 BUN 39 H Creatinine 1.63 H Estim Creat Clear Calc 44.9 Estimated GFR 42 POC Glucose 209 H Random Glucose 259 H Calcium 5.8 L* Phosphorus 6.5 H Magnesium 2.8 H Total Bilirubin 1.0 AST 33 ALT 36 Alkaline Phosphatase 169 H Total Protein 5.8 L Albumin 2.6 L 02/01/24 02/01/24 02/01/24 04:28 04:40 05:38 WBC 44.8 H* RBC 3.37 L Hgb 8.4 L Hct 29.9 L MCV 88.7 MCH 24.9 L MCHC 28.1 L RDW 20.7 H Plt Count 241 MPV 10.7 Immature Gran % (Auto) Cancelled Neut % (Auto) Cancelled Lymph % (Auto) Cancelled [place] % (Auto) Cancelled Eos % (Auto) Cancelled Baso % (Auto) Cancelled Lymph # (Auto) Cancelled [place] # (Auto) Cancelled Eos # (Auto) Cancelled Baso # (Auto) Cancelled Abs Immat Gran (auto) Cancelled Absolute Neuts (auto) Cancelled Absolute Nucleated RBC 0.380 H Nucleated RBC % (auto) 0.8 H Neutrophils % (Manual) 89 H Band Neutrophils % 3 Lymphocytes % (Manual) 5 L Eosinophils % (Manual) 3 Abs Neuts (Manual) 41.2 H Lymphocytes # (Manual) 2.2 Eosinophils # (Manual) 1.3 H Nucleated RBCs 2 H Hypersegmented Neuts PRESENT Toxic Granulation PRESENT Toxic Vacuolation PRESENT Platelet Estimate NORMAL Plt Morphology Comment NORMAL RBC Morphology NOTED Polychromasia 1+ (0-2) Hypochromasia 1+ (5-14) Basophilic Stippling 1+ (0-2) Tear Drop Cells 1+ (0-2) Ovalocytes 1+ (5-14) [place] Cells 1+ (0-2) Schistocytes 1+ (0-2) Smear Tech's Comments VBG pH 7.23 L VBG pCO2 46 VBG pO2 83 VBG HCO3 20 L VBG O2 Saturation 96.0 VBG Base Excess -7.1 Sodium 149 H Potassium 3.8 Chloride 114 H Carbon Dioxide 19 L Anion Gap 20 BUN 43 H Creatinine 2.11 H Estim Creat Clear Calc 34.6 Estimated GFR 31 POC Glucose 213 H Random Glucose 244 H Calcium 6.1 L Phosphorus 5.5 H Magnesium 2.7 H Total Bilirubin 1.3 H AST 41 H ALT 27 Alkaline Phosphatase 230 H Total Protein 5.7 L Albumin 3.1 L Microbiology Microbiology Results: Microbiology 01/29/24 Unknown Bile Gram Stain - Final 01/29/24 Unknown Bile Routine Culture - Final No growth after 2 days 01/29/24 Unknown Bile Anaerobic Culture - Preliminary No growth to date. 01/25/24 12:04 Pleural Fluid Gram Stain - Final 01/25/24 12:04 Pleural Fluid Routine Culture - Final No growth after 2 days 01/25/24 12:04 Pleural Fluid Anaerobic Culture - Final NO GROWTH AFTER 5 DAYS 01/27/24 10:19 Blood - Venous Blood Culture - Preliminary No growth after 48 hours. 01/27/24 10:19 Blood - Venous Blood Culture - Preliminary No growth after 48 hours. 01/23/24 16:34 Sputum - Suctioned Gram Stain - Final 01/23/24 16:34 Sputum - Suctioned Sputum Culture - Final Pseudomonas aeruginosa 01/21/24 04:03 Blood - Venous Blood Culture - Final No growth after 5 days. 01/21/24 04:03 Blood - Venous Blood Culture - Final No growth after 5 days. Progress Note: A&P Assessment and plan (1) Acute and chronic respiratory failure with hypoxia: Status: Acute (2) Shock: Status: Acute (3) Pneumonia: Status: Acute (4) Cholecystitis, acute: Status: Acute (5) Prostate cancer metastatic to lung: Status: Acute (6) Prostate cancer metastatic to bone: Status: Acute Plan Patient is a 68 Y M w/ obesity, asthma/COPD, lung cancer s/p lobectomy, and prostate cancer w/ metastasis to bone, presenting initially to emergency department on 01/20 w/ dyspnea, found to be in acute on chronic hypoxic respiratory failure, initially on HFNC, though advanced to non-invasive ventilation, found to be positive for COVID and w/ CTA chest not suggestive of pulmonary embolism, though c/f progression of lung and bone metastasis; ICU course c/b worsening respiratory failure, intubated on 01/22, extubated on 01/25, re-intubated on 01/30; ICU course further complicated by acute cholecystitis, s/p cholecystostomy tube on 01/28 N: intubated, sedated w/ propofol, fentanyl gtt, wean as tolerated CV: shock, likely distributive on norepinephrine, vasopresssin gtt, wean as tolerated; to follow-up echocardiogram; recurrent episodes of SVT, metoprolol as needed R: acute hypoxic respiratory failure, intubated 01/22, extubated 01/25, re- intubated 01/30, likely multifactorial including COPD, COVID pneumonia, bacterial pneumonia, metastasis, wean as tolerated GI: acute cholecystitis, s/p cholecystotomy tube 01/28, appreciate IR recommendation : acute renal insufficiency, to closely monitor renal indices, electrolytes H: profound leukocytosis, slightly improving; anemia, to closely monitor; chemical DVT prophylaxis w/ heparin SQ ID: COVID pneumonia, s/p dexamethasone, remdesivir; bacterial pneumonia on zosyn; acute cholecystitis on zosyn E: to monitor hypo-/hyper-glycemia P: no acute issues Quality Stroke Does the patient have a stroke diagnosis?: No VTE Prior VTE?: No VTE Risk Level:: Medical - moderate - high VTE Device Contraindication: N/A - Device Ordered VTE Drug Contraindication: N/A - Med Ordered
--- NOTE | 2024-02-01 09:43 | MHC.CLN ---
PT WAS RE-INTUBATED AND SEDATED PT CURRENTLY NPO IF TF NEEDED; RECOMMEND PROMOTE TF AT MAX GOAL RATE 75ML/HR WITH 240ML FREE WATER FLUSHES Q 6 HRS TO PROVIDE 1800KCALS (2356 TOTAL KCALS WITH SEDATION; 30KCALS/KG BASED ON IBW), 112G PROTEIN (1.3G/KG), 2470ML TOTAL WATER FROM FORMULA AND FLUSHES (32ML/HR) MONITOR TOLERANCE AND LYTES MONITOR FOR DIET ADVANCEMENT SEE ALSO FULL CLINICAL NUTRITION ASSESSMENT
[2024-02-01] MEDS: Chlorhexidine Gluc Oral Rinse 15 ML MOUTHWASH BUCCAL ×3 (10:09→20:24)
[2024-02-01 11:07] LABS: Glucose, Whole Blood 263 mg/dL (60-115)
[2024-02-01 14:09] LABS: VBG Base Excess -4.2 mmol/L; VBG HCO3 21 mmol/L (22-26); VBG pCO2 40 mmHg; VBG pH 7.32 (7.32-7.43); VBG pO2 65 mmHg; Venous Blood Gas Refer to POC result
[2024-02-01 17:46] LABS: Glucose, Whole Blood 259 mg/dL (60-115)
[2024-02-01] MEDS: Furosemide 20 MG/2 ML VIAL IVPUSH (17:58)
[2024-02-01] MEDS: Heparin Sodium,Porcine 5,000 UNIT/ML VIAL 5000 UNIT SUBCUT (17:58)
[2024-02-01] MEDS: Norepinephrine Bitartrate/NS 32 MG/250 ML PLAST..BAG 7 MG IVCONT (22:55)
[2024-02-02] VITALS (43 sets, daily range): BP systolic 113–152; BP diastolic 39–61; PULSE 84–120; RESP 13–33; TEMP 34.9–39.1; O2SAT 91–95; BMI 27.7
--- NOTE | 2024-02-02 | ECG_ITS ---
Test Reason : EKG changes Blood Pressure : / mmHG Vent. Rate : 116 BPM Atrial Rate : 116 BPM P-R Int : 128 ms QRS Dur : 088 ms QT Int : 366 ms P-R-T Axes : 000 051 125 degrees QTc Int : 508 ms Sinus tachycardia with Premature supraventricular complexes Nonspecific ST and T wave abnormality Abnormal ECG When compared with ECG of 31-JAN-2024 08:55, No significant changes seen Referred By: Rosa Maria Balderas Electronically Signed By:ANUEL BOSE
[2024-02-02 00:23] LABS: Glucose, Whole Blood 216 mg/dL (60-115)
[2024-02-02] MEDS: Heparin Sodium,Porcine 5,000 UNIT/ML VIAL 5000 UNIT SUBCUT ×3 (01:06→17:46)
[2024-02-02] MEDS: Acetaminophen 1,000 MG/100 ML PIGGYBACK 400 MG IV ×2 (01:06→14:43)
[2024-02-02] MEDS: Piperacillin Sodium/Tazobactam 4.5 GM in 0.9 % Sodium Chloride 100 ML IV ×3 (01:06→16:06)
[2024-02-02] MEDS: 0.9 % Sodium Chloride Flush 3 ML SYRINGE IVFLUSH ×3 (01:16→15:38)
[2024-02-02] MEDS: Vasopressin 20 UNIT/100 ML INFUS..BTL 12 UNIT IVCONT ×3 (03:18→19:47)
[2024-02-02] MEDS: propofoL 1,000 MG/100 ML VIAL 21.07 MG IVCONT ×5 (03:18→20:51)
[2024-02-02 05:30] LABS: Basophils Absolute Auto 0.1 X10*3/uL (0.0-0.2); Basophils Percent Auto 0.2 % (0-2); Eosinophils Absolute Auto 1.2 X10*3/uL (0.0-0.4); Eosinophils Percent Auto 4.1 % (0-4); Hematocrit 25.9 % (42.0-52.0); Hemoglobin 7.9 g/dl (14.0-18.0); Imm Gran Abs Auto 1.09 X10*3/uL (0.00-0.03); Imm Gran Pct Auto 3.8 % (0.0-0.4); Lymphocytes Absolute Auto 1.9 X10*3/uL (1.2-4.9); Lymphocytes Percent Auto 6.5 % (20-40); Mean Corpuscular HGB Conc 30.5 g/dl (31.0-36.0); Mean Corpuscular Hemoglobin 25.4 pg (27.0-33.0); Mean Corpuscular Volume 83.3 fL (80.0-98.0); Mean Platelet Volume 10.1 fL (9.4-12.4); Monocytes Absolute Auto 0.7 X10*3/uL (0.1-1.2); Monocytes Percent Auto 2.3 % (2-11); NRBC Pct Auto 0.4 /100WBC (0.0-0.2); Neutrophils Absolute Auto 23.8 x10*3/uL (2.0-8.3); Neutrophils Percent Auto 83.1 % (45-73); Platelet Count 124 X10*3/uL (160-400); Red Blood Count 3.11 X10*6/uL (4.60-5.80); Red Cell Distribution Width 20.7 % (11.0-16.0); SCAN SMEAR FLAG 1; White Blood Count 28.7 X10*3/uL (4.8-10.8)
[2024-02-02 05:31] LABS: MANUAL DIFF FLAG NO
[2024-02-02 05:31] LABS: VBG HCO3 18 mmol/L (22-26); VBG pCO2 36 mmHg; VBG pO2 59 mmHg
[2024-02-02] MEDS: Albuterol/Iprat 2.5/0.5MG 3 ML AMPUL.NEB INHALE ×4 (05:48→19:34)
[2024-02-02 06:07] LABS: Alanine Aminotransferase 22 U/L (0-40); Albumin Level 2.9 g/dL (3.5-5.0); Alkaline Phosphatase 106 U/L (39-117); Anion Gap 22 (12-20); Aspartate Amino Transferase 48 U/L (5-37); Bilirubin Direct 0.9 mg/dL (0.0-0.5); Bilirubin Total 1.3 mg/dL (0.0-1.0); Blood Urea Nitrogen 54 mg/dL (9-16); Calcium 5.6 mg/dL (8.4-10.2); Carbon Dioxide 18 mmol/L (22-29); Chloride 111 mmol/L (96-108); Creatinine Clr Calc Pharmacy 23.3; Estimated Glomerular Filt Rate 20; Glucose Random 199 mg/dL (60-115); Magnesium 2.6 mg/dL (1.6-2.6); Phosphorus 5.3 mg/dL (2.7-4.5); Sodium 148 mmol/L (135-145); Total Protein 5.7 g/dL (6.5-8.0)
[2024-02-02] MEDS: Calcium Gluconate/NaCl,Iso-Osm 2 GM/100 ML PLAST..BAG IV (06:17)
[2024-02-02] MEDS: Insulin Lispro 100 UNIT/ML 3 ML VIAL SUBCUT ×3 (06:17→17:46)
[2024-02-02] MEDS: Potassium Chloride/H20 40 MEQ/100 ML PIGGYBACK 100 MEQ IV (06:29)
[2024-02-02] MEDS: fentaNYL citrate/NS 1,000 MCG/100 ML PLAST..BAG 2.5 MCG IVCONT (07:38)
[2024-02-02 07:40] LABS: Venous Blood Gas Refer to POC result
--- NOTE | 2024-02-02 07:51 | P.PNCC_ITS ---
Subjective Subjective Date of Service: 02/02/24 Interval History: no significant overnight events Critical Care Time (minutes): 60 Physical Exam 2 Vital Signs: Vital Signs: Last Vital Signs Temp 100.9 F H 02/02/24 04:00 Pulse 114 H 02/02/24 07:00 Resp 18 02/02/24 07:00 BP 128/47 L 02/02/24 07:00 Pulse Ox 94 02/02/24 07:00 O2 Del Method Mechanical Ventil ation 02/02/24 07:00 O2 Flow Rate 50 02/01/24 22:00 FiO2 50 02/02/24 07:00 BMI result Body Mass Index 27.7 Const: Other: intubated, sedated HEENT: Head: Yes normal to inspection, Yes normocephalic and Yes atraumatic Eyes: General: appearance normal, both eyes and all related structures Neck: Neck: Yes normal visual inspection, Yes full ROM, Yes no meningeal signs, Yes trachea midline and Yes supple Chest: Chest palpation & inspection: normal inspection of the chest Resp: Other: diminished breath sounds bilaterally; no overt rales, rhonchi, wheezing Cardio: Rate: tachycardic Rhythm: abnormal rhythm GI: Inspection: Yes normal to inspection, No Abdominal wall edema and No distended Palpation (GI): Soft to palpation, not firm, nontender, no guarding and not rigid Skin: General skin exam: no rashes or lesions noted Neuro: General: tone normal and no meningeal signs Extrem: General: Yes normal to inspection, Yes full ROM, Yes capillary refill normal and Yes no clubbing, cyanosis or edema Psych: Other: unable to assess Objective Data Labs 02/02/24 05:19 02/02/24 05:29 Labs: Laboratory Results - last 24 hr 02/01/24 02/01/24 02/01/24 11:02 14:03 17:42 WBC RBC Hgb Hct MCV MCH MCHC RDW Plt Count MPV Immature Gran % (Auto) Neut % (Auto) Lymph % (Auto) [place] % (Auto) Eos % (Auto) Baso % (Auto) Lymph # (Auto) [place] # (Auto) Eos # (Auto) Baso # (Auto) Abs Immat Gran (auto) Absolute Neuts (auto) Absolute Nucleated RBC Nucleated RBC % (auto) VBG pH 7.32 VBG pCO2 40 VBG pO2 65 VBG HCO3 21 L VBG O2 Saturation 90.0 VBG Base Excess -4.2 Sodium Potassium Chloride Carbon Dioxide Anion Gap BUN Creatinine Estim Creat Clear Calc Estimated GFR POC Glucose 263 H 259 H Random Glucose Calcium Phosphorus Magnesium Total Bilirubin Direct Bilirubin AST ALT Alkaline Phosphatase Total Protein Albumin 02/01/24 02/02/24 02/02/24 23:54 05:19 05:20 WBC 28.7 H RBC 3.11 L Hgb 7.9 L Hct 25.9 L MCV 83.3 D MCH 25.4 L MCHC 30.5 L RDW 20.7 H Plt Count 124 L D MPV 10.1 Immature Gran % (Auto) 3.8 H Neut % (Auto) 83.1 H Lymph % (Auto) 6.5 L [place] % (Auto) 2.3 Eos % (Auto) 4.1 H Baso % (Auto) 0.2 Lymph # (Auto) 1.9 [place] # (Auto) 0.7 Eos # (Auto) 1.2 H Baso # (Auto) 0.1 Abs Immat Gran (auto) 1.09 H Absolute Neuts (auto) 23.8 H Absolute Nucleated RBC 0.110 H Nucleated RBC % (auto) 0.4 H VBG pH 7.30 L VBG pCO2 36 VBG pO2 59 VBG HCO3 18 L VBG O2 Saturation 85.0 VBG Base Excess -7.0 Sodium Potassium Chloride Carbon Dioxide Anion Gap BUN Creatinine Estim Creat Clear Calc Estimated GFR POC Glucose 216 H Random Glucose Calcium Phosphorus Magnesium Total Bilirubin Direct Bilirubin AST ALT Alkaline Phosphatase Total Protein Albumin 02/02/24 05:29 WBC RBC Hgb Hct MCV MCH MCHC RDW Plt Count MPV Immature Gran % (Auto) Neut % (Auto) Lymph % (Auto) [place] % (Auto) Eos % (Auto) Baso % (Auto) Lymph # (Auto) [place] # (Auto) Eos # (Auto) Baso # (Auto) Abs Immat Gran (auto) Absolute Neuts (auto) Absolute Nucleated RBC Nucleated RBC % (auto) VBG pH VBG pCO2 VBG pO2 VBG HCO3 VBG O2 Saturation VBG Base Excess Sodium 148 H Potassium 3.0 L D Chloride 111 H Carbon Dioxide 18 L Anion Gap 22 H BUN 54 H Creatinine 3.14 H Estim Creat Clear Calc 23.3 Estimated GFR 20 POC Glucose Random Glucose 199 H Calcium 5.6 L* D Phosphorus 5.3 H Magnesium 2.6 Total Bilirubin 1.3 H Direct Bilirubin 0.9 H AST 48 H ALT 22 Alkaline Phosphatase 106 Total Protein 5.7 L Albumin 2.9 L Microbiology Microbiology Results: Microbiology 01/27/24 10:19 Blood - Venous Blood Culture - Final No growth after 5 days. 01/27/24 10:19 Blood - Venous Blood Culture - Final No growth after 5 days. 01/31/24 10:21 Blood - Venous Blood Culture - Preliminary No growth after 24 hours. 01/31/24 10:21 Blood - Venous Blood Culture - Preliminary No growth after 24 hours. 01/29/24 Unknown Bile Gram Stain - Final 01/29/24 Unknown Bile Routine Culture - Final No growth after 2 days 01/29/24 Unknown Bile Anaerobic Culture - Preliminary No growth to date. 01/25/24 12:04 Pleural Fluid Gram Stain - Final 01/25/24 12:04 Pleural Fluid Routine Culture - Final No growth after 2 days 01/25/24 12:04 Pleural Fluid Anaerobic Culture - Final NO GROWTH AFTER 5 DAYS 01/23/24 16:34 Sputum - Suctioned Gram Stain - Final 01/23/24 16:34 Sputum - Suctioned Sputum Culture - Final Pseudomonas aeruginosa 01/21/24 04:03 Blood - Venous Blood Culture - Final No growth after 5 days. 01/21/24 04:03 Blood - Venous Blood Culture - Final No growth after 5 days. Progress Note: A&P Assessment and plan (1) Acute and chronic respiratory failure with hypoxia: Status: Acute (2) Pneumonia: Status: Acute (3) Lung cancer: Status: Acute (4) COPD (chronic obstructive pulmonary disease): Status: Acute (5) Cholecystitis, acute: Status: Acute Plan Patient is a 68 Y M w/ obesity, asthma/COPD, lung cancer s/p lobectomy, and prostate cancer w/ metastasis to bone, presenting initially to emergency department on 01/20 w/ dyspnea, found to be in acute on chronic hypoxic respiratory failure, initially on HFNC, though advanced to non-invasive ventilation, found to be positive for COVID and w/ CTA chest not suggestive of pulmonary embolism, though c/f progression of lung and bone metastasis; ICU course c/b worsening respiratory failure, intubated on 01/22, extubated on 01/25, re-intubated on 01/30; ICU course further complicated by acute cholecystitis, s/p cholecystostomy tube on 01/28 N: intubated, sedated w/ propofol gtt, wean as tolerated CV: shock, likely distributive on norepinephrine, vasopressin gtt, wean as tolerated; recurrent episodes of SVT, metoprolol as needed R: acute hypoxic respiratory failure, intubated 01/22, extubated 01/25, re- intubated 01/30, likely multifactorial including COPD, COVID pneumonia, bacterial pneumonia, metastasis, wean as tolerated GI: acute cholecystitis, s/p cholecystotomy tube 01/28, appreciate IR recommendations : acute renal insufficiency, to closely monitor renal indices, electrolytes H: profound leukocytosis, slightly improving; anemia, to closely monitor; chemical DVT prophylaxis w/ heparin SQ ID: COVID pneumonia, s/p dexamethasone, remdesivir; bacterial pneumonia on vancomycin, zosyn; acute cholecystitis on zosyn E: to monitor hypo-/hyper-glycemia P: no acute issues Quality Stroke Does the patient have a stroke diagnosis?: No VTE Prior VTE?: No VTE Risk Level:: Medical - moderate - high VTE Device Contraindication: N/A - Device Ordered VTE Drug Contraindication: N/A - Med Ordered
[2024-02-02] MEDS: Chlorhexidine Gluc Oral Rinse 15 ML MOUTHWASH BUCCAL ×3 (08:21→19:47)
[2024-02-02] MEDS: Furosemide 200 MG in 0.9 % Sodium Chloride 80 ML IVCONT (08:21)
[2024-02-02] MEDS: Albumin Human 25 % 100 ML IV (08:21)
[2024-02-02] MEDS: vancomycin/NS 2,000 MG/500 ML PLAST..BAG 250 MG IV (08:21)
--- NOTE | 2024-02-02 09:16 | PHA.PROG ---
Admission Date/Time: January 21, 2024 09:13 Indication:Respiratory Weight in k.1 kg Adjusted body weight in Kg: [place] body weight in Kg: Obesity Dosing Indication % IBW: Serum Creatinine - Last 168 Hours 01/27/24 01/27/24 01/27/24 04:11 16:23 21:17 Creatinine 0.93 0.84 0.79 01/28/24 01/28/24 01/29/24 04:11 21:02 04:42 Creatinine 0.74 0.71 0.69 01/29/24 01/30/24 01/30/24 21:14 04:57 14:30 Creatinine 0.68 0.64 0.79 01/31/24 01/31/24 01/31/24 05:05 16:54 22:54 Creatinine 0.88 1.30 1.63 H 02/01/24 02/02/24 04:28 05:29 Creatinine 2.11 H 3.14 H Estimated CrCl and GFR - Last 168 Hours 01/27/24 01/27/24 01/27/24 04:11 16:23 21:17 Estim Creat Clear Calc 78.7 87.1 92.6 Estimated GFR > 60 > 60 > 60 01/28/24 01/28/24 01/29/24 04:11 21:02 04:42 Estim Creat Clear Calc 98.9 103.1 106.0 Estimated GFR > 60 > 60 > 60 01/29/24 01/30/24 01/30/24 21:14 04:57 14:30 Estim Creat Clear Calc 107.6 114.3 92.6 Estimated GFR > 60 > 60 > 60 01/31/24 01/31/24 01/31/24 05:05 16:54 22:54 Estim Creat Clear Calc 83.1 56.3 44.9 Estimated GFR > 60 55 42 02/01/24 02/02/24 04:28 05:29 Estim Creat Clear Calc 34.6 23.3 Estimated GFR 31 20 Vancomycin Loading Dose: 2000mg x 1 Current Vancomycin Dosing Regimen: 750 mg q24H Vancomycin Monitoring using AUC goal of 400 - 600 range with trough as surrogate marker: 499 mg/L Date and Time for next Vancomycin Level to be drawn: 02/04/2024 @0800 Pharmacist Comments on Vancomycin Plan: Will give a loading dose today, may need to reduce tomorrow's dose if renal function declines tomorrow. Vancomycin dosing will take advantage of [employer] as a clinical decision support tool that uses Bayesian modeling to calculate individual patient's pharmacokinetic parameters and forecast the patient's drug concentration time course with the target goal AUC 24 range of 400 - 600 mg/L/hr.
--- NOTE | 2024-02-02 09:41 | MHC.CM.PN ---
Pt intubated and on pressor support: + COVID: Goals for the day include sedation wean and TF initiation. Pt was independent prior to admission: CM to reassess once medically stable.
--- NOTE | 2024-02-02 09:53 | MHC.CLN ---
F/U PT REMAINS INTUBATED AND SEDATED DISCUSSED AT ROUNDS WITH MD-PLAN TO START TF TODAY RECOMMEND PROMOTE TF AT MAX GOAL RATE 75ML/HR WITH 240ML FREE WATER FLUSHES Q 6 HRS TO PROVIDE 1800KCALS (2356 TOTAL KCALS WITH SEDATION; 30KCALS/KG BASED ON IBW), 112G PROTEIN (1.3G/KG), 2470ML TOTAL WATER FROM FORMULA AND FLUSHES (32ML/HR) MONITOR TOLERANCE AND LYTES
[2024-02-02 11:37] LABS: Glucose, Whole Blood 186 mg/dL (60-115)
[2024-02-02 14:15] LABS: Anion Gap 22 (12-20); Blood Urea Nitrogen 60 mg/dL (9-16); Calcium 5.9 mg/dL (8.4-10.2); Carbon Dioxide 17 mmol/L (22-29); Chloride 112 mmol/L (96-108); Estimated Glomerular Filt Rate 17; Glucose Random 194 mg/dL (60-115); Magnesium 2.4 mg/dL (1.6-2.6); Phosphorus 4.9 mg/dL (2.7-4.5); Potassium 3.5 mmol/L (3.3-5.1); Sodium 147 mmol/L (135-145)
--- NOTE | 2024-02-02 14:26 | HO.WOUND ---
Wound Consult: Follow up 68yr old male?admitted to [facility] on 01/21/24 - See progress notes and H&P for detailed history.? Wound consult follow up for sacral wound POA.? Patient is intubated and sedated and remains critically ill in ICU level of care. 01/21/24 on admission 01/27/24 02/02/24 Central Sacrum Etiology: ?? Unstageable Pressure Injury Present on Admission Wound Bed: Dark purple nonblanchable tissue with central area of necrotic tissue note Drainage / Odor: scant serous drainage noted - no odor Edges: ?advancing Tessie wound: Covid-19 skin manifestations - Dark purple maroon nonblanchable tissue Goals of Treatment: ? Off Load Pressure and Triad and Foam dressing to aid in autolytic debridement Left Lateral Back and Thoracic Spine - not consistent with pressure injury - skipped locations of pigmentation and not over consistent bony prominence. Right Achilles not consistent with pressure injury - skipped locations or pigmentation and not over consistent bony prominence. Bilateral Buttock, Ischium, Upper Lateral Left Back and Thoracic Spine and Right Achilles Etiology: Covid -19 Skin Manifestations Wound bed: Dark purple maroon intact nonblanchable tissue - not consistent with pressure injury - skipped locations or pigmentation and not over consistent bony prominence. Not over areas of pressure, consistent with the appearance of COVID-19 Purpura. Covid poses increased complications due to hypercoagulation and microvascular occlusion causing tissue ischemia, as per the NPIAP. Chart review reveals all preventative measures have been in place - Turns documented Q2hrs, Wedges in use, Pillows in use, Heel protector boots in use, barrier creams in use, Foam dressing to sacrum in use, nutrition following and Low Airloss Specialty mattress in use. No new topical recommendations at this time will monitor for wound bed progression as patient remains critically ill. Not yet ready for surgical debridement. Recommendations: 1. Turn and Reposition every 2 hours and as needed for patient comfort.? Use pillows or wedges to support off loading positions. 2. Off Load all bony prominences with use of pillows and heel boots if needed.? Apply Preventative foams where needed. ? 3. Monitor for incontinence and moisture control, use barrier creams when needed for prevention and treatment. 4. Provide adequate and supplemental nutrition.? 5. Continue low air loss mattress. 6. When applicable maintain blood glucose levels per Providers order. 7.Sacrum - Off Load Pressure? - Cleanse with PH balance spray or wipes, pat dry. ?Apply thin layer of Triad to wound bed. Do not remove all of paste between applications as this may cause further skin damage.? Cover with foam dressing to aid in off loading and protection from friction. Change every 3 days and PRN. 8. Thoracic Spine, Upper Left Back and Right Achilles - Apply skin prep allow to dry. Apply Daily. Re-consult wound care Nurse for wound deterioration or wound changes.
[2024-02-02] MEDS: Calcium Chloride 1 GM/10 ML SYRINGE IVPUSH ×2 (14:42)
[2024-02-02 17:31] LABS: Glucose, Whole Blood 169 mg/dL (60-115)
[2024-02-02 19:10] LABS: Anion Gap 18 (12-20); Blood Urea Nitrogen 63 mg/dL (9-16); Calcium 7.1 mg/dL (8.4-10.2); Carbon Dioxide 17 mmol/L (22-29); Chloride 113 mmol/L (96-108); Estimated Glomerular Filt Rate 17; Glucose Random 204 mg/dL (60-115); Magnesium 2.5 mg/dL (1.6-2.6); Phosphorus 6.1 mg/dL (2.7-4.5); Potassium 3.4 mmol/L (3.3-5.1); Sodium 145 mmol/L (135-145)
[2024-02-02] MEDS: fentaNYL citrate/NS 1,000 MCG/100 ML PLAST..BAG 7.5 MCG IVCONT (19:48)
[2024-02-02] MEDS: Calcium Gluconate/NaCl,Iso-Osm 1 GM/50 ML PLAST..BAG IV (21:06)
[2024-02-02] MEDS: Norepinephrine Bitartrate/NS 32 MG/250 ML PLAST..BAG 5.35 MG IVCONT (22:37)
[2024-02-03] VITALS (47 sets, daily range): BP systolic 88–139; BP diastolic 36–56; PULSE 81–113; RESP 19–27; TEMP 34.9–38; O2SAT 88–97; BMI 27.5
--- NOTE | 2024-02-03 | ECG_ITS ---
Test Reason : RHYTHM CHECK Blood Pressure : / mmHG Vent. Rate : 105 BPM Atrial Rate : 105 BPM P-R Int : 242 ms QRS Dur : 100 ms QT Int : 350 ms P-R-T Axes : 000 046 141 degrees QTc Int : 462 ms Poor data quality, interpretation may be adversely affected Sinus tachycardia Lateral infarct (cited on or before 03-FEB-2024) Difficult to interpret due to artifact Abnormal ECG When compared with ECG of 02-FEB-2024 13:46, due to poor quality cannot compare Referred By: Alisia Sarmiento Electronically Signed By:ANUEL BOSE
[2024-02-03 00:22] LABS: Glucose, Whole Blood 189 mg/dL (60-115)
[2024-02-03] MEDS: Insulin Lispro 100 UNIT/ML 3 ML VIAL SUBCUT ×4 (00:27→17:43)
[2024-02-03] MEDS: 0.9 % Sodium Chloride Flush 3 ML SYRINGE IVFLUSH ×3 (00:27→15:53)
[2024-02-03] MEDS: Heparin Sodium,Porcine 5,000 UNIT/ML VIAL 5000 UNIT SUBCUT ×3 (00:27→17:42)
[2024-02-03] MEDS: Piperacillin Sodium/Tazobactam 4.5 GM in 0.9 % Sodium Chloride 100 ML IV ×3 (00:27→20:28)
[2024-02-03] MEDS: propofoL 1,000 MG/100 ML VIAL 21.07 MG IVCONT ×6 (00:28→23:25)
[2024-02-03] MEDS: Vasopressin 20 UNIT/100 ML INFUS..BTL 12 UNIT IVCONT ×3 (03:39→20:27)
[2024-02-03] MEDS: Albuterol/Iprat 2.5/0.5MG 3 ML AMPUL.NEB INHALE ×4 (04:22→20:14)
--- NOTE | 2024-02-03 05:26 | ECG_ITS ---
Test Reason : RHYTHM CHECK Blood Pressure : / mmHG Vent. Rate : 107 BPM Atrial Rate : 107 BPM P-R Int : 134 ms QRS Dur : 104 ms QT Int : 366 ms P-R-T Axes : 108 048 113 degrees QTc Int : 488 ms Sinus tachycardia with frequent Premature atrial complexes Nonspecific ST and T wave abnormality Abnormal ECG When compared with ECG of 03-FEB-2024 05:26, QT has shortened Referred By: Keyshawn Browning Electronically Signed By:ANUEL BOSE
[2024-02-03 05:30] LABS: VBG Base Excess -11.7 mmol/L; VBG HCO3 15 mmol/L (22-26); VBG pCO2 37 mmHg; VBG pO2 64 mmHg
[2024-02-03] MEDS: Magnesium Sulfate/H2O 2 GM/50 ML PIGGYBACK IV (05:30)
[2024-02-03] MEDS: Calcium Chloride 1 GM/10 ML SYRINGE IVPUSH ×3 (05:39→17:43)
[2024-02-03] MEDS: Sodium Bicarbonate 8.4% 50 MEQ/50 ML SYRINGE IVPUSH (05:42)
[2024-02-03 05:43] LABS: Hematocrit 25.4 % (42.0-52.0); Hemoglobin 7.4 g/dl (14.0-18.0); Mean Corpuscular HGB Conc 29.1 g/dl (31.0-36.0); Mean Corpuscular Hemoglobin 24.8 pg (27.0-33.0); Mean Corpuscular Volume 85.2 fL (80.0-98.0); Mean Platelet Volume 11.4 fL (9.4-12.4); NRBC Pct Auto 0.5 /100WBC (0.0-0.2); Red Blood Count 2.98 X10*6/uL (4.60-5.80); Red Cell Distribution Width 21.2 % (11.0-16.0)
[2024-02-03 05:46] LABS: Platelet Count 90 X10*3/uL (160-400); White Blood Count 30.7 X10*3/uL (4.8-10.8)
[2024-02-03 05:54] LABS: Venous Blood Gas Refer to POC result
[2024-02-03 06:03] LABS: Albumin Level 2.8 g/dL (3.5-5.0); Anion Gap 23 (12-20); Blood Urea Nitrogen 68 mg/dL (9-16); Calcium 6.6 mg/dL (8.4-10.2); Carbon Dioxide 15 mmol/L (22-29); Chloride 109 mmol/L (96-108); Creatinine Clr Calc Pharmacy 17.1; Estimated Glomerular Filt Rate 14; Glucose Random 196 mg/dL (60-115); Magnesium 2.5 mg/dL (1.6-2.6); Phosphorus 6.6 mg/dL (2.7-4.5); Potassium 3.9 mmol/L (3.3-5.1); Sodium 143 mmol/L (135-145)
[2024-02-03] MEDS: Metoprolol Tartrate 5 MG/5 ML VIAL 10 MG IVPUSH ×2 (06:08→22:29)
[2024-02-03] MEDS: Sodium Bicarbonate 8.4% 150 MEQ in Dextrose 5 % 850 ML 100 MEQ IV ×2 (06:38→16:14)
[2024-02-03 06:40] LABS: Troponin-I High Sensitivity 97.2 ng/L (<3.5-35.0)
[2024-02-03 07:25] LABS: Lactic Acid 1.7 mmol/L (0.5-2.0)
[2024-02-03] MEDS: Albumin Human 25 % 100 ML IV ×2 (07:44→09:20)
--- NOTE | 2024-02-03 07:48 | PM.CCPN ---
Subjective Subjective Date of Service: 02/03/24 Interval History: appreciable increased arrhythmias, though no overt signs of ischemia Critical Care Time (minutes): 60 Physical Exam Vital Signs: Vital Signs: Last Vital Signs Temp 100.4 F 02/03/24 07:00 Pulse 90 02/03/24 07:00 Resp 24 H 02/03/24 07:00 BP 107/42 L 02/03/24 07:00 Pulse Ox 94 02/03/24 07:00 O2 Del Method Mechanical Ventil ation 02/03/24 07:00 O2 Flow Rate 50 02/01/24 22:00 FiO2 40 02/03/24 07:00 BMI result Body Mass Index 27.5 Const: Other: intubated, sedated General: no acute distress HEENT: Head: Yes normal to inspection, Yes normocephalic and Yes atraumatic Eyes: General: appearance normal, both eyes and all related structures Neck: Neck: Yes normal visual inspection, Yes full ROM, Yes no meningeal signs, Yes trachea midline and Yes supple Chest: Chest palpation & inspection: normal inspection of the chest Resp: Other: no overt rales, rhonchi, wheezing Effort & Inspection: normal respiratory effort Cardio: Rate: regular rate Rhythm: regular rhythm GI: Inspection: Yes normal to inspection, No Abdominal wall edema and No distended Palpation (GI): Soft to palpation, not firm, nontender, no guarding and not rigid Skin: General skin exam: no rashes or lesions noted Neuro: General: tone normal and no meningeal signs Extrem: Other: appreciable 1+ pitting edema to bilateral shins and upper extremities General: Yes normal to inspection, Yes full ROM and Yes capillary refill normal Psych: Other: unable to assess Objective Data Labs 02/03/24 05:21 02/03/24 05:21 Labs: Laboratory Results - last 24 hr 02/02/24 02/02/24 02/02/24 11:32 13:46 17:24 WBC RBC Hgb Hct MCV MCH MCHC RDW Plt Count MPV Immature Gran % (Auto) Neut % (Auto) Lymph % (Auto) [place] % (Auto) Eos % (Auto) Baso % (Auto) Lymph # (Auto) [place] # (Auto) Eos # (Auto) Baso # (Auto) Abs Immat Gran (auto) Absolute Neuts (auto) Absolute Nucleated RBC Nucleated RBC % (auto) VBG pH VBG pCO2 VBG pO2 VBG HCO3 VBG O2 Saturation VBG Base Excess Sodium 147 H Potassium 3.5 Chloride 112 H Carbon Dioxide 17 L Anion Gap 22 H BUN 60 H Creatinine 3.66 H Estim Creat Clear Calc 20.0 Estimated GFR 17 POC Glucose 186 H 169 H Random Glucose 194 H Lactic Acid Calcium 5.9 L* Phosphorus 4.9 H Magnesium 2.4 Troponin I High Sens Albumin 02/02/24 02/03/24 02/03/24 18:29 00:16 05:19 WBC RBC Hgb Hct MCV MCH MCHC RDW Plt Count MPV Immature Gran % (Auto) Neut % (Auto) Lymph % (Auto) [place] % (Auto) Eos % (Auto) Baso % (Auto) Lymph # (Auto) [place] # (Auto) Eos # (Auto) Baso # (Auto) Abs Immat Gran (auto) Absolute Neuts (auto) Absolute Nucleated RBC Nucleated RBC % (auto) VBG pH 7.20 L* VBG pCO2 37 VBG pO2 64 VBG HCO3 15 L VBG O2 Saturation 89.0 VBG Base Excess -11.7 Sodium 145 Potassium 3.4 Chloride 113 H Carbon Dioxide 17 L Anion Gap 18 BUN 63 H Creatinine 3.66 H Estim Creat Clear Calc 20.0 Estimated GFR 17 POC Glucose 189 H Random Glucose 204 H Lactic Acid Calcium 7.1 L D Phosphorus 6.1 H Magnesium 2.5 Troponin I High Sens Albumin 02/03/24 02/03/24 05:21 06:58 WBC 30.7 H* RBC 2.98 L Hgb 7.4 L Hct 25.4 L MCV 85.2 MCH 24.8 L MCHC 29.1 L RDW 21.2 H Plt Count 90 L D MPV 11.4 Immature Gran % (Auto) Cancelled Neut % (Auto) Cancelled Lymph % (Auto) Cancelled [place] % (Auto) Cancelled Eos % (Auto) Cancelled Baso % (Auto) Cancelled Lymph # (Auto) Cancelled [place] # (Auto) Cancelled Eos # (Auto) Cancelled Baso # (Auto) Cancelled Abs Immat Gran (auto) Cancelled Absolute Neuts (auto) Cancelled Absolute Nucleated RBC 0.140 H Nucleated RBC % (auto) 0.5 H VBG pH VBG pCO2 VBG pO2 VBG HCO3 VBG O2 Saturation VBG Base Excess Sodium 143 Potassium 3.9 Chloride 109 H Carbon Dioxide 15 L Anion Gap 23 H BUN 68 H Creatinine 4.27 H* Estim Creat Clear Calc 17.1 Estimated GFR 14 POC Glucose Random Glucose 196 H Lactic Acid 1.7 Calcium 6.6 L D Phosphorus 6.6 H Magnesium 2.5 Troponin I High Sens 97.2 H Albumin 2.8 L Microbiology Microbiology Results: Microbiology 01/31/24 10:21 Blood - Venous Blood Culture - Preliminary No growth after 48 hours. 01/31/24 10:21 Blood - Venous Blood Culture - Preliminary No growth after 48 hours. 01/29/24 Unknown Bile Gram Stain - Final 01/29/24 Unknown Bile Routine Culture - Final No growth after 2 days 01/29/24 Unknown Bile Anaerobic Culture - Preliminary No growth to date. 01/27/24 10:19 Blood - Venous Blood Culture - Final No growth after 5 days. 01/27/24 10:19 Blood - Venous Blood Culture - Final No growth after 5 days. 01/25/24 12:04 Pleural Fluid Gram Stain - Final 01/25/24 12:04 Pleural Fluid Routine Culture - Final No growth after 2 days 01/25/24 12:04 Pleural Fluid Anaerobic Culture - Final NO GROWTH AFTER 5 DAYS 01/23/24 16:34 Sputum - Suctioned Gram Stain - Final 01/23/24 16:34 Sputum - Suctioned Sputum Culture - Final Pseudomonas aeruginosa 01/21/24 04:03 Blood - Venous Blood Culture - Final No growth after 5 days. 01/21/24 04:03 Blood - Venous Blood Culture - Final No growth after 5 days. Progress Note: A&P Assessment and plan (1) Acute and chronic respiratory failure with hypoxia: Status: Acute (2) Shock: Status: Acute (3) Pneumonia: Status: Acute (4) Lung cancer: Status: Acute (5) COPD (chronic obstructive pulmonary disease): Status: Acute Plan Patient is a 68 Y M w/ obesity, asthma/COPD, lung cancer s/p lobectomy, and prostate cancer w/ metastasis to bone, presenting initially to emergency department on 01/20 w/ dyspnea, found to be in acute on chronic hypoxic respiratory failure, initially on HFNC, though advanced to non-invasive ventilation, found to be positive for COVID and w/ CTA chest not suggestive of pulmonary embolism, though c/f progression of lung and bone metastasis; ICU course c/b worsening respiratory failure, intubated on 01/22, extubated on 01/25, re-intubated on 01/30; ICU course further complicated by acute cholecystitis, s/p cholecystostomy tube on 01/28 N: intubated, sedated w/ propofol gtt, wean as tolerated CV: shock, likely distributive on norepinephrine, vasopressin gtt, wean as tolerated; recurrent episodes of SVT, metoprolol as needed R: acute hypoxic respiratory failure, intubated 01/22, extubated 01/25, re-intubated 01/30, likely multifactorial including COPD, COVID pneumonia, bacterial pneumonia, metastasis, wean as tolerated GI: acute cholecystitis, s/p cholecystotomy tube 01/28, appreciate IR recommendations : acute renal insufficiency, to closely monitor renal indices, electrolytes H: profound leukocytosis, slightly improving; anemia, to closely monitor; chemical DVT prophylaxis w/ heparin SQ ID: COVID pneumonia, s/p dexamethasone, remdesivir; bacterial pneumonia on vancomycin, zosyn; acute cholecystitis on zosyn E: to monitor hypo-/hyper-glycemia P: no acute issues Quality Stroke Does the patient have a stroke diagnosis?: No VTE Prior VTE?: No VTE Risk Level:: Medical - moderate - high VTE Device Contraindication: N/A - Device Ordered VTE Drug Contraindication: N/A - Med Ordered
[2024-02-03] MEDS: Chlorhexidine Gluc Oral Rinse 15 ML MOUTHWASH BUCCAL ×3 (08:11→20:27)
[2024-02-03] MEDS: Furosemide 200 MG in 0.9 % Sodium Chloride 80 ML 10 MG IVCONT ×2 (08:14→17:51)
[2024-02-03 08:26] LABS: Band Neutrophils Percent 7 % (3-5); Eosinophils Absolute Manual 0.6 X10*3/uL (0.0-0.4); Eosinophils Percent Manual 2 % (0-4); Lymphocytes Absolute Manual 1.5 X10*3/uL (1.2-4.9); Lymphocytes Percent Manual 5 % (20-40); Monocytes Absolute Manual 0.3 X10*3/uL (0.1-1.2); Monocytes Percent Manual 1 % (2-11); Neutrophils Absolute Manual 28.2 X10*3/uL (2.0-8.3); Neutrophils Percent Manual 85 % (45-73)
[2024-02-03 08:29] LABS: Acanthocytes 2+ (3-5) /OIF; Basophilic Stippling 1+ (0-2) /OIF; Burr Cells 3+ (>5) /OIF; Microcytosis 1+ (5-14) /OIF; Polychromasia 1+ (0-2) /OIF; RBC Morphology NOTED
[2024-02-03 08:30] LABS: Hypochromasia 1+ (5-14) /OIF; Large Platelet PRESENT; Platelet Estimate DECREASED (NORMAL); Platelet Morphology Comment NOTED
[2024-02-03] MEDS: vancomycin HCL 500 MG in 0.9 % Sodium Chloride 100 ML 110 MG IV (09:22)
[2024-02-03 09:40] LABS: Troponin-I High Sensitivity 79.3 ng/L (<3.5-35.0)
--- NOTE | 2024-02-03 09:41 | MHC.CLN ---
F/U PT REMAINS INTUBATED AND SEDATED TF CURRENTLY RUNNING AT 50ML/HR WITH GOOD TOLERANCE RECOMMEND INCREASE PROMOTE TF TO MAX GOAL RATE 75ML/HR WITH 240ML FREE WATER FLUSHES Q 6 HRS TO PROVIDE 1800KCALS (2356 TOTAL KCALS WITH SEDATION; 30KCALS/KG BASED ON IBW), 112G PROTEIN (1.3G/KG), 2470ML TOTAL WATER FROM FORMULA AND FLUSHES (32ML/HR) MONITOR TOLERANCE AND LYTES
[2024-02-03] MEDS: fentaNYL citrate/NS 1,000 MCG/100 ML PLAST..BAG 5 MCG IVCONT (11:06)
[2024-02-03 12:06] LABS: Glucose, Whole Blood 223 mg/dL (60-115)
[2024-02-03] MEDS: Hydrocortisone Sod Succ/PF 100 MG VIAL 50 MG IVPUSH ×2 (12:06→17:42)
[2024-02-03 12:45] LABS: Appearance Urine Cloudy; Color Urine Yellow; Glucose Urine UA 100 mg/dL (Negative); Leukocyte Esterase Urine Negative (Negative); Nitrite Urine Negative (Negative); Specific Gravity - Urine 1.015 (1.005-1.025); UMIC TRIGGER UACC YES; Urine Blood Moderate (2+) (Negative); Urine Ketones Negative (Negative); Urine Protein 100 (2+) mg/dL (Neg-Trace)
--- NOTE | 2024-02-03 12:49 | W.MHC.ACPN ---
Advanced Care Planning Note Advanced Care Planning Note Discussed with: family member(s) Time spent (in minutes): 60 Narrative: I set up a family meeting w/ Mr. Raphael's , daughter, son, and ex- today; we discussed Mr. Raphael's emergency department and ICU course; we discussed Mr. Astorgas multi-system organ dysfunction, including his respiratory failure, d/t a combination of COPD, viral pneumonia, bacterial pneumonia, and tumor burden, as well as his progressing renal dysfunction; we also discussed Mr. Astorgas acute cholecystitis; we discussed the pros and cons of tracheostomy if Mr. Astorgas respiratory status does not improve, after which Mr. Raphael's family agreed Mr. Raphael would not desire a tracheostomy since he values his ability to communicate with family and to eat; we also discussed the pros and cons of hemodialysis if Mr. Negro renal status does not improve, which Mr. Negro family would like to continue discussing; we discussed CPR in the setting of cardiac arrest, which Mr. Negro family would like to continue discussing; lastly, we discussed comfort-focused care as an option for Mr. Raphael's philosophy of care; overall, Mr. Negro family would like to maintain hope, though acknowledge his critical and guarded clinical status Problems Discussed (1) Acute and chronic respiratory failure with hypoxia: (2) Shock: (3) Pneumonia: (4) Lung cancer: (5) COPD (chronic obstructive pulmonary disease):
[2024-02-03 12:57] LABS: Bacteria Urine None Seen (None Seen); Hyaline Casts Urine 0-2 /LPF (0-2); WBC Urine 0-5 /HPF (0-5)
--- NOTE | 2024-02-03 13:56 | MHC.CM.PN ---
Pt remains on ventilatory support with worsening renal function: goals of care discussion w/pt's family: no change to code or care needs at this time. CM to follow for finalization of d/c planning needs
[2024-02-03 17:36] LABS: Glucose, Whole Blood 251 mg/dL (60-115)
[2024-02-03 18:12] LABS: VBG Base Excess -7.2 mmol/L; VBG HCO3 20 mmol/L (22-26); VBG pCO2 48 mmHg; VBG pH 7.22 (7.32-7.43); VBG pO2 53 mmHg
[2024-02-03 18:43] LABS: Anion Gap 23 (12-20); Blood Urea Nitrogen 71 mg/dL (9-16); Calcium 8.3 mg/dL (8.4-10.2); Carbon Dioxide 19 mmol/L (22-29); Chloride 106 mmol/L (96-108); Creatinine Clr Calc Pharmacy 16.9; Estimated Glomerular Filt Rate 14; Glucose Random 307 mg/dL (60-115); Magnesium 2.8 mg/dL (1.6-2.6); Phosphorus 6.1 mg/dL (2.7-4.5); Potassium 3.8 mmol/L (3.3-5.1); Sodium 144 mmol/L (135-145)
[2024-02-03 20:01] LABS: Venous Blood Gas Refer to POC result
[2024-02-03] MEDS: Norepinephrine Bitartrate/NS 32 MG/250 ML PLAST..BAG 7 MG IVCONT (22:28)
[2024-02-03 23:39] LABS: Glucose, Whole Blood 317 mg/dL (60-115)
[2024-02-04] VITALS (66 sets, daily range): BP systolic 103–149; BP diastolic 41–64; PULSE 86–203; RESP 12–30; TEMP 34.8–38.1; O2SAT 88–93; BMI 29.0
[2024-02-04] MEDS: 0.9 % Sodium Chloride Flush 3 ML SYRINGE IVFLUSH ×4 (00:25→22:22)
[2024-02-04] MEDS: Hydrocortisone Sod Succ/PF 100 MG VIAL 50 MG IVPUSH ×5 (00:26→23:42)
[2024-02-04] MEDS: Calcium Chloride 1 GM/10 ML SYRINGE IVPUSH ×6 (00:26→23:42)
[2024-02-04] MEDS: Insulin Lispro 100 UNIT/ML 3 ML VIAL SUBCUT ×5 (00:26→17:27)
[2024-02-04] MEDS: Sodium Bicarbonate 8.4% 150 MEQ in Dextrose 5 % 850 ML 100 MEQ IV ×3 (02:07→22:11)
[2024-02-04] MEDS: Heparin Sodium,Porcine 5,000 UNIT/ML VIAL 5000 UNIT SUBCUT (02:07)
[2024-02-04] MEDS: Furosemide 200 MG in 0.9 % Sodium Chloride 80 ML 10 MG IVCONT (03:34)
[2024-02-04] MEDS: Albuterol/Iprat 2.5/0.5MG 3 ML AMPUL.NEB INHALE ×4 (04:18→20:36)
[2024-02-04] MEDS: propofoL 1,000 MG/100 ML VIAL 15.8 MG IVCONT (04:25)
[2024-02-04] MEDS: Vasopressin 20 UNIT/100 ML INFUS..BTL 12 UNIT IVCONT ×3 (04:26→17:27)
[2024-02-04 05:29] LABS: VBG Base Excess -3.8 mmol/L; VBG HCO3 23 mmol/L (22-26); VBG pCO2 50 mmHg; VBG pH 7.26 (7.32-7.43); VBG pO2 57 mmHg
[2024-02-04 05:37] LABS: Hematocrit 22.1 % (42.0-52.0); Mean Corpuscular HGB Conc 30.3 g/dl (31.0-36.0); Mean Corpuscular Volume 82.5 fL (80.0-98.0); NRBC Pct Auto 0.7 /100WBC (0.0-0.2); Red Blood Count 2.68 X10*6/uL (4.60-5.80); Red Cell Distribution Width 21.4 % (11.0-16.0)
[2024-02-04 05:40] LABS: Venous Blood Gas Refer to POC result
[2024-02-04 05:51] LABS: Platelet Count 56 X10*3/uL (160-400)
[2024-02-04 05:53] LABS: White Blood Count 33.3 X10*3/uL (4.8-10.8)
[2024-02-04 05:54] LABS: Hemoglobin 6.7 g/dl (14.0-18.0)
[2024-02-04 06:06] LABS: Band Neutrophils Percent 5 % (3-5); Lymphocytes Absolute Manual 0.7 X10*3/uL (1.2-4.9); Lymphocytes Percent Manual 2 % (20-40); Monocytes Absolute Manual 0.3 X10*3/uL (0.1-1.2); Monocytes Percent Manual 1 % (2-11); Neutrophils Absolute Manual 32.3 X10*3/uL (2.0-8.3); Neutrophils Percent Manual 92 % (45-73)
[2024-02-04 06:07] LABS: Albumin Level 2.8 g/dL (3.5-5.0); Anion Gap 26 (12-20); Blood Urea Nitrogen 74 mg/dL (9-16); Calcium 7.1 mg/dL (8.4-10.2); Carbon Dioxide 18 mmol/L (22-29); Chloride 104 mmol/L (96-108); Creatinine Clr Calc Pharmacy 17.1; Estimated Glomerular Filt Rate 12; Glucose Random 433 mg/dL (60-115); Magnesium 2.8 mg/dL (1.6-2.6); Phosphorus 5.8 mg/dL (2.7-4.5); Potassium 4.2 mmol/L (3.3-5.1); Sodium 144 mmol/L (135-145)
[2024-02-04 06:08] LABS: Basophilic Stippling 1+ (0-2) /OIF; Burr Cells 1+ (0-2) /OIF; Dohle Bodies PRESENT; Ovalocytes 1+ (5-14) /OIF; RBC Morphology NOTED; Schistocytes 1+ (0-2) /OIF; Toxic Granulation PRESENT
[2024-02-04 06:09] LABS: Microcytosis 1+ (5-14) /OIF; Polychromasia 1+ (0-2) /OIF; Tear Drop Cells 1+ (0-2) /OIF
[2024-02-04 06:10] LABS: Acanthocytes 1+ (0-2) /OIF; Platelet Estimate DECREASED (NORMAL); Platelet Morphology Comment NORMAL
[2024-02-04] MEDS: Metoprolol Tartrate 5 MG/5 ML VIAL 10 MG IVPUSH (06:21)
[2024-02-04] MEDS: fentaNYL citrate/NS 1,000 MCG/100 ML PLAST..BAG 5 MCG IVCONT (06:24)
--- NOTE | 2024-02-04 07:52 | PM.CCPN ---
Subjective Subjective Date of Service: 02/04/24 Interval History: no significant overnight events; continued critical and guarded clinical status Critical Care Time (minutes): 60 Physical Exam Vital Signs: Vital Signs: Last Vital Signs Temp 99.1 F 02/04/24 07:44 Pulse 89 02/04/24 07:44 Resp 27 H 02/04/24 07:44 BP 120/49 L 02/04/24 07:44 Pulse Ox 90 L 02/04/24 07:00 O2 Del Method Mechanical Ventil ation 02/04/24 07:00 O2 Flow Rate 50 02/01/24 22:00 FiO2 40 02/04/24 07:00 BMI result Body Mass Index 29.0 Const: Other: intubated, sedated, some appreciable grimacing, no appreciable purposeful movements General: no acute distress HEENT: Head: Yes normal to inspection, Yes normocephalic and Yes atraumatic Eyes: General: appearance normal, both eyes and all related structures Neck: Neck: Yes normal visual inspection, Yes full ROM, Yes no meningeal signs, Yes trachea midline and Yes supple Chest: Chest palpation & inspection: normal inspection of the chest Resp: Other: no overt rales, rhonchi, wheezing Effort & Inspection: normal respiratory effort Cardio: Rate: regular rate Rhythm: regular rhythm GI: Inspection: Yes normal to inspection, No Abdominal wall edema and No distended Palpation (GI): Soft to palpation, not firm, nontender, no guarding and not rigid Skin: General skin exam: no rashes or lesions noted Neuro: General: tone normal, moves all extremities and no meningeal signs Extrem: Other: appreciable 2+ pitting edema bilateral upper extremities, 1+ pitting edema bilateral lower extremities General: Yes normal to inspection, Yes full ROM and Yes capillary refill normal Psych: Other: unable to assess Objective Data Labs 02/04/24 05:22 02/04/24 05:22 Labs: Laboratory Results - last 24 hr 02/03/24 02/03/24 02/03/24 05:21 09:10 12:01 WBC RBC Hgb Hct MCV MCH MCHC RDW Plt Count MPV Immature Gran % (Auto) Neut % (Auto) Lymph % (Auto) [place] % (Auto) Eos % (Auto) Baso % (Auto) Lymph # (Auto) [place] # (Auto) Eos # (Auto) Baso # (Auto) Abs Immat Gran (auto) Absolute Neuts (auto) Absolute Nucleated RBC Nucleated RBC % (auto) Neutrophils % (Manual) 85 H Band Neutrophils % 7 H Lymphocytes % (Manual) 5 L Monocytes % (Manual) 1 L Eosinophils % (Manual) 2 Abs Neuts (Manual) 28.2 H Lymphocytes # (Manual) 1.5 Monocytes # (Manual) 0.3 Eosinophils # (Manual) 0.6 H Toxic Granulation Dohle Bodies Platelet Estimate DECREASED Large Platelets PRESENT Plt Morphology Comment NOTED RBC Morphology NOTED Polychromasia 1+ (0-2) Hypochromasia 1+ (5-14) Basophilic Stippling 1+ (0-2) Microcytosis 1+ (5-14) Tear Drop Cells Ovalocytes Carmen Cells 3+ (>5) Acanthocytes (Spur) 2+ (3-5) Schistocytes VBG pH VBG pCO2 VBG pO2 VBG HCO3 VBG O2 Saturation VBG Base Excess Sodium Potassium Chloride Carbon Dioxide Anion Gap BUN Creatinine Estim Creat Clear Calc Estimated GFR POC Glucose 223 H Random Glucose Calcium Phosphorus Magnesium Troponin I High Sens 79.3 H Albumin Urine Color Urine Appearance Urine pH Ur Specific [place] Urine Protein Urine Glucose (UA) Urine Ketones Urine Blood Urine Nitrite Ur Leukocyte Esterase Urine RBC Urine WBC Ur Squamous Epith Cells Urine Bacteria Hyaline Casts Blood Type Antibody Screen Crossmatch 02/03/24 02/03/24 02/03/24 12:16 13:42 17:32 WBC RBC Hgb Hct MCV MCH MCHC RDW Plt Count MPV Immature Gran % (Auto) Neut % (Auto) Lymph % (Auto) [place] % (Auto) Eos % (Auto) Baso % (Auto) Lymph # (Auto) [place] # (Auto) Eos # (Auto) Baso # (Auto) Abs Immat Gran (auto) Absolute Neuts (auto) Absolute Nucleated RBC Nucleated RBC % (auto) Neutrophils % (Manual) Band Neutrophils % Lymphocytes % (Manual) Monocytes % (Manual) Eosinophils % (Manual) Abs Neuts (Manual) Lymphocytes # (Manual) Monocytes # (Manual) Eosinophils # (Manual) Toxic Granulation Dohle Bodies Platelet Estimate Large Platelets Plt Morphology Comment RBC Morphology Polychromasia Hypochromasia Basophilic Stippling Microcytosis Tear Drop Cells Ovalocytes Carmen Cells Acanthocytes (Spur) Schistocytes VBG pH VBG pCO2 VBG pO2 VBG HCO3 VBG O2 Saturation VBG Base Excess Sodium Potassium Chloride Carbon Dioxide Anion Gap BUN Creatinine Estim Creat Clear Calc Estimated GFR POC Glucose 251 H Random Glucose Calcium Phosphorus Magnesium Troponin I High Sens Albumin Urine Color Yellow Urine Appearance Cloudy Urine pH 5.0 Ur Specific [place] 1.015 Urine Protein 100 (2+) H Urine Glucose (UA) 100 H Urine Ketones Negative Urine Blood Moderate (2+) H Urine Nitrite Negative Ur Leukocyte Esterase Negative Urine RBC 3-5 H Urine WBC 0-5 Ur Squamous Epith Cells 6-10 Urine Bacteria None Seen Hyaline Casts 0-2 Blood Type A Positive Antibody Screen NEGATIVE Crossmatch See Detail 02/03/24 02/03/24 02/03/24 18:00 18:05 23:29 WBC RBC Hgb Hct MCV MCH MCHC RDW Plt Count MPV Immature Gran % (Auto) Neut % (Auto) Lymph % (Auto) [place] % (Auto) Eos % (Auto) Baso % (Auto) Lymph # (Auto) [place] # (Auto) Eos # (Auto) Baso # (Auto) Abs Immat Gran (auto) Absolute Neuts (auto) Absolute Nucleated RBC Nucleated RBC % (auto) Neutrophils % (Manual) Band Neutrophils % Lymphocytes % (Manual) Monocytes % (Manual) Eosinophils % (Manual) Abs Neuts (Manual) Lymphocytes # (Manual) Monocytes # (Manual) Eosinophils # (Manual) Toxic Granulation Dohle Bodies Platelet Estimate Large Platelets Plt Morphology Comment RBC Morphology Polychromasia Hypochromasia Basophilic Stippling Microcytosis Tear Drop Cells Ovalocytes Carmen Cells Acanthocytes (Spur) Schistocytes VBG pH 7.22 L VBG pCO2 48 VBG pO2 53 VBG HCO3 20 L VBG O2 Saturation 78.0 VBG Base Excess -7.2 Sodium 144 Potassium 3.8 Chloride 106 Carbon Dioxide 19 L Anion Gap 23 H BUN 71 H Creatinine 4.33 H* Estim Creat Clear Calc 16.9 Estimated GFR 14 POC Glucose 317 H Random Glucose 307 H Calcium 8.3 L D Phosphorus 6.1 H Magnesium 2.8 H Troponin I High Sens Albumin Urine Color Urine Appearance Urine pH Ur Specific [place] Urine Protein Urine Glucose (UA) Urine Ketones Urine Blood Urine Nitrite Ur Leukocyte Esterase Urine RBC Urine WBC Ur Squamous Epith Cells Urine Bacteria Hyaline Casts Blood Type Antibody Screen Crossmatch 02/04/24 02/04/24 05:17 05:22 WBC 33.3 H* RBC 2.68 L Hgb 6.7 L* Hct 22.1 L MCV 82.5 MCH 25.0 L MCHC 30.3 L RDW 21.4 H Plt Count 56 L D MPV Not Reportable Immature Gran % (Auto) Cancelled Neut % (Auto) Cancelled Lymph % (Auto) Cancelled [place] % (Auto) Cancelled Eos % (Auto) Cancelled Baso % (Auto) Cancelled Lymph # (Auto) Cancelled [place] # (Auto) Cancelled Eos # (Auto) Cancelled Baso # (Auto) Cancelled Abs Immat Gran (auto) Cancelled Absolute Neuts (auto) Cancelled Absolute Nucleated RBC 0.230 H Nucleated RBC % (auto) 0.7 H Neutrophils % (Manual) 92 H Band Neutrophils % 5 Lymphocytes % (Manual) 2 L Monocytes % (Manual) 1 L Eosinophils % (Manual) Abs Neuts (Manual) 32.3 H Lymphocytes # (Manual) 0.7 L Monocytes # (Manual) 0.3 Eosinophils # (Manual) Toxic Granulation PRESENT Dohle Bodies PRESENT Platelet Estimate DECREASED Large Platelets Plt Morphology Comment NORMAL RBC Morphology NOTED Polychromasia 1+ (0-2) Hypochromasia Basophilic Stippling 1+ (0-2) Microcytosis 1+ (5-14) Tear Drop Cells 1+ (0-2) Ovalocytes 1+ (5-14) [place] Cells 1+ (0-2) Acanthocytes (Spur) 1+ (0-2) Schistocytes 1+ (0-2) VBG pH 7.26 L VBG pCO2 50 VBG pO2 57 VBG HCO3 23 VBG O2 Saturation 82.0 VBG Base Excess -3.8 Sodium 144 Potassium 4.2 Chloride 104 Carbon Dioxide 18 L Anion Gap 26 H BUN 74 H Creatinine 4.71 H* Estim Creat Clear Calc 17.1 Estimated GFR 12 POC Glucose Random Glucose 433 H* Calcium 7.1 L D Phosphorus 5.8 H Magnesium 2.8 H Troponin I High Sens Albumin 2.8 L Urine Color Urine Appearance Urine pH Ur Specific [place] Urine Protein Urine Glucose (UA) Urine Ketones Urine Blood Urine Nitrite Ur Leukocyte Esterase Urine RBC Urine WBC Ur Squamous Epith Cells Urine Bacteria Hyaline Casts Blood Type Antibody Screen Crossmatch Microbiology Microbiology Results: Microbiology 01/29/24 Unknown Bile Gram Stain - Final 01/29/24 Unknown Bile Routine Culture - Final No growth after 2 days 01/29/24 Unknown Bile Anaerobic Culture - Final NO GROWTH AFTER 5 DAYS 01/31/24 10:21 Blood - Venous Blood Culture - Preliminary No growth after 48 hours. 01/31/24 10:21 Blood - Venous Blood Culture - Preliminary No growth after 48 hours. 01/27/24 10:19 Blood - Venous Blood Culture - Final No growth after 5 days. 01/27/24 10:19 Blood - Venous Blood Culture - Final No growth after 5 days. 01/25/24 12:04 Pleural Fluid Gram Stain - Final 01/25/24 12:04 Pleural Fluid Routine Culture - Final No growth after 2 days 01/25/24 12:04 Pleural Fluid Anaerobic Culture - Final NO GROWTH AFTER 5 DAYS 01/23/24 16:34 Sputum - Suctioned Gram Stain - Final 01/23/24 16:34 Sputum - Suctioned Sputum Culture - Final Pseudomonas aeruginosa 01/21/24 04:03 Blood - Venous Blood Culture - Final No growth after 5 days. 01/21/24 04:03 Blood - Venous Blood Culture - Final No growth after 5 days. Progress Note: A&P Assessment and plan (1) Shock: Status: Acute (2) Pneumonia: Status: Acute (3) Non-small cell carcinoma of lung: Status: Acute (4) COPD (chronic obstructive pulmonary disease): Status: Acute (5) Cholecystitis, acute: Status: Acute (6) Acute renal insufficiency: Status: Acute Plan Patient is a 68 Y M w/ obesity, asthma/COPD, lung cancer s/p lobectomy, and prostate cancer w/ metastasis to bone, presenting initially to emergency department on 01/20 w/ dyspnea, found to be in acute on chronic hypoxic respiratory failure, initially on HFNC, though advanced to non-invasive ventilation, found to be positive for COVID and w/ CTA chest not suggestive of pulmonary embolism, though c/f progression of lung and bone metastasis; ICU course c/b worsening respiratory failure, intubated on 01/22, extubated on 01/25, re-intubated on 01/30; ICU course further complicated by acute cholecystitis, s/p cholecystostomy tube on 01/28 N: intubated, sedated w/ propofol gtt, fentanyl gtt wean as tolerated CV: shock, likely distributive on norepinephrine, vasopressin gtt, wean as tolerated; recurrent episodes of SVT, metoprolol as needed R: acute hypoxic respiratory failure, intubated 01/22, extubated 01/25, re-intubated 01/30, likely multifactorial including COPD, COVID pneumonia, bacterial pneumonia, metastasis, wean as tolerated GI: acute cholecystitis, s/p cholecystotomy tube 01/28, appreciate IR recommendations : acute renal insufficiency, worsening, bumetanide gtt, bicarbonate gtt, to closely monitor renal indices, electrolytes H: profound leukocytosis, slightly improving; anemia, to closely monitor; to hold chemical DVT prophylaxis; mechanical devices ID: COVID pneumonia, s/p dexamethasone, remdesivir; bacterial pneumonia on vancomycin, zosyn; acute cholecystitis on zosyn; to follow-up BCx 02/02 E: hyperglycemia, insulin sliding scale P: no acute issues Quality Stroke Does the patient have a stroke diagnosis?: No VTE Prior VTE?: No VTE Risk Level:: Medical - moderate - high VTE Device Contraindication: N/A - Device Ordered VTE Drug Contraindication: Treatment Not Tolerated
[2024-02-04 08:21] LABS: Vancomycin Random 21.8 mcg/mL (15-20)
[2024-02-04] MEDS: Insulin Regular, Human 100 UNIT/ML 10 ML VIAL 10 UNIT IVPUSH ×3 (08:29→12:14)
[2024-02-04] MEDS: Sodium Bicarbonate 8.4% 50 MEQ/50 ML SYRINGE IVPUSH (08:29)
[2024-02-04] MEDS: Chlorhexidine Gluc Oral Rinse 15 ML MOUTHWASH BUCCAL ×2 (08:29→17:23)
[2024-02-04] MEDS: Piperacillin Sodium/Tazobactam 4.5 GM in 0.9 % Sodium Chloride 100 ML IV ×2 (08:29→21:59)
--- NOTE | 2024-02-04 09:00 | PM.CNNEP ---
History of Present Illness Reason for Consult Consult date: 02/04/24 Chief Complaint Chief complaint: hypoxic respiratory failure History of Present Illness Narrative: 68 y/o male with a medical history of asthma/COPD, lung cancer s/p lobectomy, prostate CA with mets to bone. 01/20 presented with dyspnea, hypoxic respiratory failure, covid + and imaging showing progression of lung and bone mets, requiring ICU admission, extubated 01/25, re-intubated 01/30. course complicated by acute cholecystitis, had cholecystostomy tube 01/28. he has required vasopressor support in addition to mechanical ventilation, has bicarbonate drip at 100ml/hr and bumetanide gtt at 2mg/hr. renal function has been declining. From admission through 01/30, creatinine at baseline (0.64-0.88), 01/30 creatinine increased to 1.30, and has been steadily increasing to 4.71 on 02/03 sodium, potassium within normal limits; calcium 7.1, phos 5.8, magnesium 2.8. serum bicarb 18, anion gap 26. continues to make urine though oliguric, 286mL/24 hours had abdominal ultrasound of right side that showed unremarkable right kidney and without hydronephrosis/calculi 01/27. 02/02 urine with moderate protein, small amount of RBCs, no WBCs Review of Systems Review of Systems Yes unobtainable due to endotracheal tube and Unobtainable due to mental status PMFSH Past Medical History Medical History Back pain Constipation Vomiting GERD (gastroesophageal reflux disease) History of prostate cancer Hemoptysis Carcinoma, lung Personal history of nicotine dependence Asthma with chronic obstructive pulmonary disease (COPD) COPD (chronic obstructive pulmonary disease) Obesity (BMI 30.0-34.9) History of COVID-19 Left hip prosthetic joint infection Opioid dependence Shoulder pain Osteoarthritis Right leg swelling Arthritis, hip Family History Family History Father Colon cancer Mother Cancer Surgical History Surgical History History of lobectomy of lung (12/10/23) Non-small cell cancer of left lung History of bronchoscopy History of total right hip replacement History of total left hip replacement History of lumbar surgery Social History Social History Household Members: Spouse and Children Household Members Other:: daughter Housing: House Are you a primary managed care liaison to a significant other at home: No Do you presently have visiting nurse or other home services: No Alcohol intake: never Patient Tobacco Use Status: Former Tobacco user Cigarette Packs Per Day: 1 Years Smoked: onset 16yo, 1ppd x 40yrs, 40pyh e-Cigarette/Vaping Use: Never Used Second Hand Smoke Exposure: No service: No Current 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 Cognitive needs: No Hearing needs: No Vision needs: No Meds Allergies Allergy/AdvReac Type Severity Reaction Status Date / Time bee venom protein (honey bee) Allergy Severe Anaphylaxis Verified 02/04/24 09:19 [bees] levofloxacin Allergy Intermediate rash Verified 01/29/24 20:58 Penicillins Allergy Intermediate Vomiting Verified 01/29/24 20:58 Active Medications: Current Medications Albuterol/Ipratropium (Albuterol/Iprat 2.5/0.5mg 3 Ml Ampul.Neb) 3 ml INHALE Q6H COUNTS INCLUDE 234 BEDS AT THE [facility] Last Admin: 02/04/24 07:58 Dose: 3 ml Calcium Chloride (Calcium Chloride 1 Gm/10 Ml Syringe) 1 gm IVPUSH Q6H COUNTS INCLUDE 234 BEDS AT THE [facility] Last Admin: 02/04/24 06:15 Dose: 1 gm Chlorhexidine Gluconate (Chlorhexidine Gluc Oral Rinse 15 Ml Mouthwash) 15 ml BUCCAL TID COUNTS INCLUDE 234 BEDS AT THE [facility] Last Admin: 02/04/24 08:29 Dose: 15 ml Glucose (Glucose Gel 15 Gm Gel..Gram.) 15 gm PO Q15M PRN; Protocol PRN Reason: per Hypoglycemia Standing Ord. Heparin Sodium (Porcine) (Heparin Sodium,Porcine 5,000 Unit/Ml Vial) 5,000 unit SUBCUT Q8H COUNTS INCLUDE 234 BEDS AT THE [facility] Last Admin: 02/04/24 02:07 Dose: 5,000 unit Hydrocortisone Sodium Succinate (Hydrocortisone Sod Succ/Pf 100 Mg Vial) 50 mg IVPUSH Q6H COUNTS INCLUDE 234 BEDS AT THE [facility] Last Admin: 02/04/24 06:14 Dose: 50 mg Dextrose (D10) 250 mls @ 750 mls/hr IV Q15M PRN; Protocol PRN Reason: per Hypoglycemia Standing Ord. Last Infusion: 12/16/24 07:02 Dose: Infused Norepinephrine Bitartrate (Levophed) 32 mg in 250 mls @ 0 mls/hr IVCONT .Q0M COUNTS INCLUDE 234 BEDS AT THE [facility]; Protocol Last Titration: 02/04/24 04:37 Dose: 0.13 mcg/kg/min, 5.35 mls/hr Fentanyl (Sublimaze/Ns) 1,000 mcg in 100 mls @ 0 mls/hr IVCONT .Q0M COUNTS INCLUDE 234 BEDS AT THE [facility]; Protocol Last Admin: 02/04/24 06:24 Dose: 50 mcg/hr, 5 mls/hr Propofol (Diprivan) 1,000 mg in 100 mls @ 0 mls/hr IVCONT .Q0M COUNTS INCLUDE 234 BEDS AT THE [facility]; Protocol Last Titration: 02/04/24 08:10 Dose: 20 mcg/kg/min, 10.54 mls/hr Vasopressin (Vasostrict) 20 unit in 100 mls @ 12 mls/hr IVCONT .Q8H20M COUNTS INCLUDE 234 BEDS AT THE [facility] Last Admin: 02/04/24 04:26 Dose: 0.04 unit/min, 12 mls/hr Sodium Bicarbonate 150 meq/ (Dextrose) 1,000 mls @ 100 mls/hr IV .Q10H COUNTS INCLUDE 234 BEDS AT THE [facility] Last Admin: 02/04/24 02:07 Dose: 100 mls/hr Piperacillin Sod/Tazobactam (Sod 4.5 gm/ Sodium Chloride) 100 mls @ 200 mls/hr IV Q12H COUNTS INCLUDE 234 BEDS AT THE [facility] Last Admin: 02/04/24 08:29 Dose: 200 mls/hr Bumetanide 25 mg/ IV (Miscellaneous Supplies) 100 mls @ 8 mls/hr IVCONT .[id number] COUNTS INCLUDE 234 BEDS AT THE [facility] Vancomycin HCl 500 mg/ Sodium (Chloride) 110 mls @ 110 mls/hr IV Q24H COUNTS INCLUDE 234 BEDS AT THE [facility] Insulin Human Lispro (Insulin Lispro 100 Unit/Ml 3 Ml Vial) 0 unit SUBCUT Q6H COUNTS INCLUDE 234 BEDS AT THE [facility]; Protocol Last Admin: 02/04/24 06:15 Dose: 10 unit Metoprolol Tartrate (Metoprolol Tartrate 5 Mg/5 Ml Vial) 10 mg IVPUSH Q6H PRN PRN Reason: tachycardia Last Admin: 02/04/24 06:21 Dose: 10 mg Pharmacy Consult (Consult Rx Vancomycin Dosing) 1 each MISCELLANE DAILY PRN PRN Reason: Consult order Sodium Chloride (0.9 % Sodium Chloride Flush 3 Ml Syringe) 3 ml IVFLUSH QSHIFT COUNTS INCLUDE 234 BEDS AT THE [facility] Last Admin: 02/04/24 08:15 Dose: 3 ml Home Medications ?Medication ?Instructions ?Recorded ?Confirmed ?Last Taken ?Type albuterol sulfate 90 mcg/actuation 2 inh inhalation Q8H PRN Shortness 01/21/24 01/21/24 Unknown History aerosol inhaler (Ventolin HFA) Of Breath Or Wheezing docusate sodium 100 mg capsule 100 mg PO BID PRN Constipation 01/21/24 01/21/24 01/20/24 History (Colace) doxycycline monohydrate 100 mg 100 mg PO BID 01/21/24 01/21/24 01/20/24 History capsule esomeprazole magnesium 20 mg 20 mg PO DAILY PRN Heartburn 01/21/24 01/21/24 Unknown History capsule,delayed release (Nexium) fluticasone propionate 115 2 puff inhalation BID 01/21/24 01/21/24 Unknown History mcg-salmeterol 21 mcg/actuation HFA inhaler (Advair HFA) prednisone 2.5 mg tablet 2.5 mg PO BID 01/21/24 01/21/24 01/19/24 History Physical Exam Vital Signs: Last Vital Signs Temp 99.0 F 02/04/24 09:00 Pulse 100 02/04/24 09:00 Resp 23 H 02/04/24 09:00 BP 149/58 H 02/04/24 09:00 Pulse Ox 91 L 02/04/24 09:00 O2 Del Method Mechanical Ventilation 02/04/24 09:00 O2 Flow Rate 50 02/01/24 22:00 FiO2 40 02/04/24 09:00 BMI result Body Mass Index 29.0 Const Other: intubated/sedated Resp Other: intubated Effort & Inspection: normal respiratory effort Auscultation: clear to auscultation bilaterally (anteriorly) Cardio Jugular venous distension: no JVD Rate: regular rate Rhythm: regular rhythm Heart sounds: S1 normal heart sound present and S2 normal heart sound present GI Palpation (GI): Soft to palpation and nontender Skin Lesions: no lesions Rashes: no rashes Extrem General: Yes edema (trace pitting pedal edema, no ankle edema. ) Results Lab Results 02/04/24 05:22 02/04/24 05:22 Lab results: Chemistry 02/02/24 02/02/24 02/02/24 05:29 13:46 18:29 Sodium 148 H 147 H 145 Potassium 3.0 L D 3.5 3.4 Carbon Dioxide 18 L 17 L 17 L BUN 54 H 60 H 63 H Creatinine 3.14 H 3.66 H 3.66 H Calcium 5.6 L* D 5.9 L* 7.1 L D Phosphorus 5.3 H 4.9 H 6.1 H 02/03/24 02/03/24 02/04/24 05:21 18:05 05:22 Sodium 143 144 144 Potassium 3.9 3.8 4.2 Carbon Dioxide 15 L 19 L 18 L BUN 68 H 71 H 74 H Creatinine 4.27 H* 4.33 H* 4.71 H* Calcium 6.6 L D 8.3 L D 7.1 L D Phosphorus 6.6 H 6.1 H 5.8 H Hematology 02/02/24 02/03/24 02/04/24 05:19 05:21 05:22 WBC 28.7 H 30.7 H* 33.3 H* Hgb 7.9 L 7.4 L 6.7 L* Plt Count 124 L D 90 L D 56 L D Urinalysis 02/03/24 12:16 Urine Color Yellow Urine Appearance Cloudy Urine pH 5.0 Ur Specific [place] 1.015 Urine Protein 100 (2+) H Urine Glucose (UA) 100 H Urine Ketones Negative Urine Blood Moderate (2+) H Urine Nitrite Negative Ur Leukocyte Esterase Negative Urine RBC 3-5 H Urine WBC 0-5 Ur Squamous Epith Cells 6-10 Hyaline Casts 0-2 Assessment and Plan (1) Prostate cancer metastatic to lung: Status: Acute (2) ALEJANDRA (acute kidney injury): Status: Acute (3) COVID-19: Status: Acute (4) Acute and chronic respiratory failure with hypoxia: Status: Acute Plan ALEJANDRA likely multifactorial, related to hypoperfusion from ongonig hemodynamic instability, vanco toxicity may also be playing role paitent is clearly volume up at 25L positive, total body water overload also oliguiric; even though no blood chemistry indicating the need for hemodialysis now, we will be happy to provide renal replacement once his family agrees and the ICU team wants to move forward; diuresis for now per advanced care plan note. Avoid nephrotoxins continue regular electrolyte, renal function studies and blood pressure monitoring will continue to follow Discussed with Dr Pierre Procedures Date of Service Date of Service: 02/04/24
[2024-02-04 09:35] LABS: Glucose, Whole Blood 351 mg/dL (60-115)
[2024-02-04] MEDS: Bumetanide 25 MG in Container,Empty 0 ML 8 MG IVCONT ×2 (10:09→19:41)
[2024-02-04 10:49] LABS: COVID-19 Test Positive (Negative); IDNOW Serial# 58CA691E
[2024-02-04 11:43] LABS: Glucose, Whole Blood 342 mg/dL (60-115)
[2024-02-04 14:08] LABS: Glucose, Whole Blood 265 mg/dL (60-115)
--- NOTE | 2024-02-04 14:16 | MHC.CM.PN ---
Pt remains on ventilatory support w/COVID in the setting of metastatic disease. No change to current treatment plan. CM to follow
[2024-02-04 17:31] LABS: Glucose, Whole Blood 311 mg/dL (60-115)
[2024-02-04 18:57] LABS: Anion Gap 20 (12-20); Blood Urea Nitrogen 81 mg/dL (9-16); Calcium 7.9 mg/dL (8.4-10.2); Carbon Dioxide 24 mmol/L (22-29); Chloride 103 mmol/L (96-108); Creatinine Clr Calc Pharmacy 17.2; Estimated Glomerular Filt Rate 12; Glucose Random 362 mg/dL (60-115); Magnesium 2.6 mg/dL (1.6-2.6); Phosphorus 5.3 mg/dL (2.7-4.5); Potassium 4.2 mmol/L (3.3-5.1); Sodium 143 mmol/L (135-145)
[2024-02-04] MEDS: HYDROmorphone HCl 0.5 MG/0.5 ML SYRINGE IVPUSH (19:40)
[2024-02-04 20:20] LABS: OBS Int Ctl Valid YES; OBS1 POSITIVE (NEGATIVE)
[2024-02-04] MEDS: Midazolam HCl/PF 2 MG/2 ML VIAL IVPUSH (20:57)
[2024-02-04 23:31] LABS: Glucose, Whole Blood 344 mg/dL (60-115)
[2024-02-04] MEDS: Norepinephrine Bitartrate/NS 32 MG/250 ML PLAST..BAG IVCONT (23:42)
[2024-02-04] MEDS: Insulin Regular/NS 100 UNIT/100 ML PLAST..BAG IVCONT (23:45)
[2024-02-05] VITALS (47 sets, daily range): BP systolic 83–165; BP diastolic 44–65; PULSE 88–111; RESP 11–25; TEMP 34.8–39.5; O2SAT 90–99; BMI 30.7
[2024-02-05] MEDS: HYDROmorphone HCl 0.5 MG/0.5 ML SYRINGE IVPUSH ×2 (00:48→15:39)
[2024-02-05] MEDS: Midazolam HCl/PF 2 MG/2 ML VIAL IVPUSH (00:48)
[2024-02-05 01:06] LABS: Glucose, Whole Blood 282 mg/dL (60-115)
[2024-02-05 02:01] LABS: Glucose, Whole Blood 360 mg/dL (60-115)
[2024-02-05 03:16] LABS: Glucose, Whole Blood 288 mg/dL (60-115)
[2024-02-05] MEDS: Acetaminophen 1,000 MG/100 ML PIGGYBACK 400 MG IV ×2 (03:57→19:48)
[2024-02-05 04:14] LABS: Glucose, Whole Blood 290 mg/dL (60-115)
--- NOTE | 2024-02-05 04:22 | PC.NURSE ---
CARE ASSUMED 7PM..REMAINS INTUBATED..ACVC+ VENT SUPPORT... PER SHIFT REPORT OFF CONTINUOUS SEDATION SINCE AM DAY-SHIFT AND REMAINS UNRESPONSIVE..EXTREMETIES FLACCID..NO GAG REFLEX..MINIMAL TO NO COUGH REFLEX....OVERBREATHES VENTILATOR TO RR 30-32.LABOURED RESPIRATORY EFFORT..MEDICATED PER PROVIDER WITH PRN DILAUDID AND THEN VERSED 2MG IV X1 PRIOR TO TRANSPORT TO CT DEPT...RETURNED FROM CT W/O INCIDENT...MAP LOW 60'S..LEVOPHED DRIP RESUMED PER APR PER PROVIDER WITH IMPROVED SBP/MAP....CONTINUES BICARB DRIP 100 CC/HR AND BUMEX DRIP 2 MG/HR... PER REPORT RUIZ REMAINS WITH MARGINAL TO MINIMAL OUTPUT..RIGHT PIGTAIL CHEST TUBE WITH SCANT SEROUS OUTPUT..NO AIRLEAK...RIGHT LATERAL ABDOMINAL T-TUBE WITH BILIOUS DRAINAGE....REMAINS WITH WOUNDS TO COCCYX/BUTTOCKS AND UPPER BACK PER PICTURES FROM WOUND RN...COOLING BLANKET REMOVES AT HS FOR TEMP 99.3 AND SECONDARY TO WOUNDS...TEMP UP TO 100.6-100.8 VIA RUIZ TEMP...TYLENOL 1000MG IV X1 INFUSED PER PROVIDER...POC GLUCOSE REMAINED ELEVATED...STARTED ICU INSULIN PROTOCOL PER PROVIDER AND TITRATED PER PROTOCOL AND PER PROVIDER..CURRENTLY 4 UNITS/HR...PER REPORT TUBE FEEDS HELD DAYSHIFT FOR RESIDUAL 560ML...INFUSING AT 60 CC/HR AT HS..INCREASED RESIDUAL TO 275ML...FEEDS HELD 4AM...PROVIDER AWARE...SINUS TACHYCARDIA..HR 102-106...RARE PAC'S..RARE TRANSIENT BURSTS NON-SUSTAINED RAPID ATRIAL FIB...REPEAT DILAUDID AND VERSED THIS AM FOR WORK OF BREATHING..REMAINS UNRESPONSIVE BOTH BEFORE AND AFTER RECEIPT
[2024-02-05] MEDS: Albuterol/Iprat 2.5/0.5MG 3 ML AMPUL.NEB INHALE ×4 (04:30→19:55)
[2024-02-05 05:15] LABS: VBG Base Excess 0.8 mmol/L; VBG HCO3 27 mmol/L (22-26); VBG pCO2 52 mmHg; VBG pH 7.32 (7.32-7.43); VBG pO2 64 mmHg
[2024-02-05 05:20] LABS: Venous Blood Gas Refer to POC result
[2024-02-05 05:20] LABS: Glucose, Whole Blood 261 mg/dL (60-115)
[2024-02-05 05:24] LABS: Hemoglobin 8.5 g/dl (14.0-18.0)
[2024-02-05 05:26] LABS: Hematocrit 25.6 % (42.0-52.0); Mean Corpuscular HGB Conc 33.2 g/dl (31.0-36.0); Mean Corpuscular Hemoglobin 26.8 pg (27.0-33.0); Mean Corpuscular Volume 80.8 fL (80.0-98.0); NRBC Pct Auto 0.9 /100WBC (0.0-0.2); Red Blood Count 3.17 X10*6/uL (4.60-5.80); Red Cell Distribution Width 19.6 % (11.0-16.0)
[2024-02-05 05:29] LABS: PLT ABN DIST 1; Platelet Count 58 X10*3/uL (160-400); WBC ABN SCTR FOR CBC 1
[2024-02-05 05:31] LABS: White Blood Count 35.2 X10*3/uL (4.8-10.8)
[2024-02-05 05:42] LABS: Anion Gap 28 (12-20); Blood Urea Nitrogen 93 mg/dL (9-16); Calcium 7.4 mg/dL (8.4-10.2); Carbon Dioxide 22 mmol/L (22-29); Chloride 100 mmol/L (96-108); Creatinine Clr Calc Pharmacy 17.4; Estimated Glomerular Filt Rate 12; Glucose Random 289 mg/dL (60-115); Magnesium 2.7 mg/dL (1.6-2.6); Phosphorus 4.6 mg/dL (2.7-4.5); Potassium 4.2 mmol/L (3.3-5.1); Sodium 146 mmol/L (135-145)
[2024-02-05 05:43] LABS: Band Neutrophils Percent 4 % (3-5); Lymphocytes Absolute Manual 0.4 X10*3/uL (1.2-4.9); Lymphocytes Percent Manual 1 % (20-40); Monocytes Absolute Manual 0.4 X10*3/uL (0.1-1.2); Monocytes Percent Manual 1 % (2-11); Myelocytes Absolute 0.4 X10*/uL; Myelocytes Percent 1 %; Neutrophils Absolute Manual 34.1 X10*3/uL (2.0-8.3); Neutrophils Percent Manual 93 % (45-73); Nucleated Red Blood Cells 1 /100WBC (0-0)
[2024-02-05 05:44] LABS: Dohle Bodies PRESENT; Ovalocytes 1+ (5-14) /OIF; RBC Morphology NOTED; Target Cells 1+ (5-14) /OIF; Toxic Granulation PRESENT
[2024-02-05 05:45] LABS: Basophilic Stippling 1+ (0-2) /OIF; Polychromasia 1+ (0-2) /OIF
[2024-02-05 05:47] LABS: Burr Cells 1+ (0-2) /OIF; Hypochromasia 1+ (5-14) /OIF; Large Platelet PRESENT; Platelet Estimate DECREASED (NORMAL); Schistocytes 1+ (0-2) /OIF
[2024-02-05 05:48] LABS: Microcytosis 1+ (5-14) /OIF; Platelet Morphology Comment NOTE
[2024-02-05] MEDS: Calcium Chloride 1 GM/10 ML SYRINGE IVPUSH ×4 (06:06→17:24)
[2024-02-05] MEDS: Hydrocortisone Sod Succ/PF 100 MG VIAL 50 MG IVPUSH ×4 (06:07→23:55)
[2024-02-05 06:24] LABS: Glucose, Whole Blood 238 mg/dL (60-115)
[2024-02-05 07:14] LABS: Glucose, Whole Blood 218 mg/dL (60-115)
[2024-02-05] MEDS: Chlorhexidine Gluc Oral Rinse 15 ML MOUTHWASH BUCCAL ×3 (07:44→19:48)
[2024-02-05] MEDS: Bumetanide 25 MG in Container,Empty 0 ML 8 MG IVCONT (07:44)
[2024-02-05] MEDS: Sodium Bicarbonate 8.4% 150 MEQ in Dextrose 5 % 850 ML 100 MEQ IV (07:44)
--- NOTE | 2024-02-05 07:53 | P.PNCC_ITS ---
Subjective Subjective Date of Service: 02/05/24 Interval History: continued critical and guarded clinical status Critical Care Time (minutes): 60 Physical Exam 2 Vital Signs: Vital Signs: Last Vital Signs Temp 101.1 F H 02/05/24 07:00 Pulse 105 H 02/05/24 07:00 Resp 19 02/05/24 07:00 BP 156/61 H 02/05/24 07:00 Pulse Ox 92 02/05/24 07:00 O2 Del Method Mechanical Ventil ation 02/05/24 07:00 O2 Flow Rate 50 02/01/24 22:00 FiO2 50 02/05/24 07:00 BMI result Body Mass Index 30.7 Const: Other: intubated, minimally sedated; appreciable spontaneous movements, no appreciable purposeful movements HEENT: Head: Yes normal to inspection, Yes normocephalic and Yes atraumatic Eyes: General: appearance normal, both eyes and all related structures Neck: Neck: Yes normal visual inspection, Yes full ROM, Yes no meningeal signs, Yes trachea midline and Yes supple Chest: Chest palpation & inspection: normal inspection of the chest Resp: Other: some appreciable rhonchi; no appreciable rales, wheezing Effort & Inspection: normal respiratory effort Cardio: Rate: tachycardic Rhythm: regular rhythm Skin: General skin exam: no rashes or lesions noted Neuro: General: tone normal and no meningeal signs Extrem: Other: appreciable anasarca General: Yes full ROM and Yes capillary refill normal Psych: Other: unable to assess Objective Data Labs 02/05/24 05:07 02/05/24 05:07 Labs: Laboratory Results - last 24 hr 02/03/24 02/04/24 02/04/24 13:42 08:02 09:32 WBC RBC Hgb Hct MCV MCH MCHC RDW Plt Count MPV Immature Gran % (Auto) Neut % (Auto) Lymph % (Auto) [place] % (Auto) Eos % (Auto) Baso % (Auto) Lymph # (Auto) [place] # (Auto) Eos # (Auto) Baso # (Auto) Abs Immat Gran (auto) Absolute Neuts (auto) Absolute Nucleated RBC Nucleated RBC % (auto) Neutrophils % (Manual) Band Neutrophils % Lymphocytes % (Manual) Monocytes % (Manual) Myelocytes % Abs Neuts (Manual) Lymphocytes # (Manual) Monocytes # (Manual) Myelocytes # Nucleated RBCs Toxic Granulation Dohle Bodies Platelet Estimate Large Platelets Plt Morphology Comment RBC Morphology Polychromasia Hypochromasia Basophilic Stippling Microcytosis Target Cells Ovalocytes Carmen Cells Schistocytes VBG pH VBG pCO2 VBG pO2 VBG HCO3 VBG O2 Saturation VBG Base Excess Sodium Potassium Chloride Carbon Dioxide Anion Gap BUN Creatinine Estim Creat Clear Calc Estimated GFR POC Glucose 351 H* Random Glucose Calcium Phosphorus Magnesium Stool Occult Blood Random Vancomycin 21.8 H COVID-19 ([facility]) COVID-19 Clin Com Blood Type A Positive Antibody Screen NEGATIVE Crossmatch See Detail 02/04/24 02/04/24 02/04/24 11:39 14:04 17:26 WBC RBC Hgb Hct MCV MCH MCHC RDW Plt Count MPV Immature Gran % (Auto) Neut % (Auto) Lymph % (Auto) [place] % (Auto) Eos % (Auto) Baso % (Auto) Lymph # (Auto) [place] # (Auto) Eos # (Auto) Baso # (Auto) Abs Immat Gran (auto) Absolute Neuts (auto) Absolute Nucleated RBC Nucleated RBC % (auto) Neutrophils % (Manual) Band Neutrophils % Lymphocytes % (Manual) Monocytes % (Manual) Myelocytes % Abs Neuts (Manual) Lymphocytes # (Manual) Monocytes # (Manual) Myelocytes # Nucleated RBCs Toxic Granulation Dohle Bodies Platelet Estimate Large Platelets Plt Morphology Comment RBC Morphology Polychromasia Hypochromasia Basophilic Stippling Microcytosis Target Cells Ovalocytes [place] Cells Schistocytes VBG pH VBG pCO2 VBG pO2 VBG HCO3 VBG O2 Saturation VBG Base Excess Sodium Potassium Chloride Carbon Dioxide Anion Gap BUN Creatinine Estim Creat Clear Calc Estimated GFR POC Glucose 342 H 265 H 311 H Random Glucose Calcium Phosphorus Magnesium Stool Occult Blood Random Vancomycin COVID-19 ([facility]) COVID-19 Clin Com Blood Type Antibody Screen Crossmatch 02/04/24 02/04/24 02/04/24 18:20 19:50 23:26 WBC RBC Hgb Hct MCV MCH MCHC RDW Plt Count MPV Immature Gran % (Auto) Neut % (Auto) Lymph % (Auto) [place] % (Auto) Eos % (Auto) Baso % (Auto) Lymph # (Auto) [place] # (Auto) Eos # (Auto) Baso # (Auto) Abs Immat Gran (auto) Absolute Neuts (auto) Absolute Nucleated RBC Nucleated RBC % (auto) Neutrophils % (Manual) Band Neutrophils % Lymphocytes % (Manual) Monocytes % (Manual) Myelocytes % Abs Neuts (Manual) Lymphocytes # (Manual) Monocytes # (Manual) Myelocytes # Nucleated RBCs Toxic Granulation Dohle Bodies Platelet Estimate Large Platelets Plt Morphology Comment RBC Morphology Polychromasia Hypochromasia Basophilic Stippling Microcytosis Target Cells Ovalocytes Carmen Cells Schistocytes VBG pH VBG pCO2 VBG pO2 VBG HCO3 VBG O2 Saturation VBG Base Excess Sodium 143 Potassium 4.2 Chloride 103 Carbon Dioxide 24 Anion Gap 20 BUN 81 H Creatinine 4.68 H* Estim Creat Clear Calc 17.2 Estimated GFR 12 POC Glucose 344 H Random Glucose 362 H* Calcium 7.9 L D Phosphorus 5.3 H Magnesium 2.6 Stool Occult Blood POSITIVE Random Vancomycin COVID-19 ([facility]) COVID-19 Clin Com Blood Type Antibody Screen Crossmatch 02/04/24 02/05/24 02/05/24 Unknown 00:53 01:56 WBC RBC Hgb Hct MCV MCH MCHC RDW Plt Count MPV Immature Gran % (Auto) Neut % (Auto) Lymph % (Auto) [place] % (Auto) Eos % (Auto) Baso % (Auto) Lymph # (Auto) [place] # (Auto) Eos # (Auto) Baso # (Auto) Abs Immat Gran (auto) Absolute Neuts (auto) Absolute Nucleated RBC Nucleated RBC % (auto) Neutrophils % (Manual) Band Neutrophils % Lymphocytes % (Manual) Monocytes % (Manual) Myelocytes % Abs Neuts (Manual) Lymphocytes # (Manual) Monocytes # (Manual) Myelocytes # Nucleated RBCs Toxic Granulation Dohle Bodies Platelet Estimate Large Platelets Plt Morphology Comment RBC Morphology Polychromasia Hypochromasia Basophilic Stippling Microcytosis Target Cells Ovalocytes Carm[place] Cells Schistocytes VBG pH VBG pCO2 VBG pO2 VBG HCO3 VBG O2 Saturation VBG Base Excess Sodium Potassium Chloride Carbon Dioxide Anion Gap BUN Creatinine Estim Creat Clear Calc Estimated GFR POC Glucose 282 H 360 H* Random Glucose Calcium Phosphorus Magnesium Stool Occult Blood Random Vancomycin COVID-19 ([facility]) Positive A COVID-19 Clin Com See Note Blood Type Antibody Screen Crossmatch 02/05/24 02/05/24 02/05/24 03:01 03:59 04:58 WBC RBC Hgb Hct MCV MCH MCHC RDW Plt Count MPV Immature Gran % (Auto) Neut % (Auto) Lymph % (Auto) [place] % (Auto) Eos % (Auto) Baso % (Auto) Lymph # (Auto) [place] # (Auto) Eos # (Auto) Baso # (Auto) Abs Immat Gran (auto) Absolute Neuts (auto) Absolute Nucleated RBC Nucleated RBC % (auto) Neutrophils % (Manual) Band Neutrophils % Lymphocytes % (Manual) Monocytes % (Manual) Myelocytes % Abs Neuts (Manual) Lymphocytes # (Manual) Monocytes # (Manual) Myelocytes # Nucleated RBCs Toxic Granulation Dohle Bodies Platelet Estimate Large Platelets Plt Morphology Comment RBC Morphology Polychromasia Hypochromasia Basophilic Stippling Microcytosis Target Cells Ovalocytes [place] Cells Schistocytes VBG pH VBG pCO2 VBG pO2 VBG HCO3 VBG O2 Saturation VBG Base Excess Sodium Potassium Chloride Carbon Dioxide Anion Gap BUN Creatinine Estim Creat Clear Calc Estimated GFR POC Glucose 288 H 290 H 261 H Random Glucose Calcium Phosphorus Magnesium Stool Occult Blood Random Vancomycin COVID-19 ([facility]) COVID-19 Clin Com Blood Type Antibody Screen Crossmatch 02/05/24 02/05/24 02/05/24 05:04 05:07 06:11 WBC 35.2 H* RBC 3.17 L Hgb 8.5 L D Hct 25.6 L MCV 80.8 MCH 26.8 L MCHC 33.2 RDW 19.6 H Plt Count 58 L MPV Not Reportable Immature Gran % (Auto) Cancelled Neut % (Auto) Cancelled Lymph % (Auto) Cancelled [place] % (Auto) Cancelled Eos % (Auto) Cancelled Baso % (Auto) Cancelled Lymph # (Auto) Cancelled [place] # (Auto) Cancelled Eos # (Auto) Cancelled Baso # (Auto) Cancelled Abs Immat Gran (auto) Cancelled Absolute Neuts (auto) Cancelled Absolute Nucleated RBC 0.310 H Nucleated RBC % (auto) 0.9 H Neutrophils % (Manual) 93 H Band Neutrophils % 4 Lymphocytes % (Manual) 1 L Monocytes % (Manual) 1 L Myelocytes % 1 Abs Neuts (Manual) 34.1 H Lymphocytes # (Manual) 0.4 L Monocytes # (Manual) 0.4 Myelocytes # 0.4 Nucleated RBCs 1 H Toxic Granulation PRESENT Dohle Bodies PRESENT Platelet Estimate DECREASED Large Platelets PRESENT Plt Morphology Comment NOTE RBC Morphology NOTED Polychromasia 1+ (0-2) Hypochromasia 1+ (5-14) Basophilic Stippling 1+ (0-2) Microcytosis 1+ (5-14) Target Cells 1+ (5-14) Ovalocytes 1+ (5-14) [place] Cells 1+ (0-2) Schistocytes 1+ (0-2) VBG pH 7.32 VBG pCO2 52 VBG pO2 64 VBG HCO3 27 H VBG O2 Saturation 90.0 VBG Base Excess 0.8 Sodium 146 H Potassium 4.2 Chloride 100 Carbon Dioxide 22 Anion Gap 28 H BUN 93 H Creatinine 4.74 H* Estim Creat Clear Calc 17.4 Estimated GFR 12 POC Glucose 238 H Random Glucose 289 H Calcium 7.4 L D Phosphorus 4.6 H Magnesium 2.7 H Stool Occult Blood Random Vancomycin COVID-19 ([facility]) COVID-19 Tabtor Com Blood Type Antibody Screen Crossmatch 02/05/24 07:09 WBC RBC Hgb Hct MCV MCH MCHC RDW Plt Count MPV Immature Gran % (Auto) Neut % (Auto) Lymph % (Auto) [place] % (Auto) Eos % (Auto) Baso % (Auto) Lymph # (Auto) [place] # (Auto) Eos # (Auto) Baso # (Auto) Abs Immat Gran (auto) Absolute Neuts (auto) Absolute Nucleated RBC Nucleated RBC % (auto) Neutrophils % (Manual) Band Neutrophils % Lymphocytes % (Manual) Monocytes % (Manual) Myelocytes % Abs Neuts (Manual) Lymphocytes # (Manual) Monocytes # (Manual) Myelocytes # Nucleated RBCs Toxic Granulation Dohle Bodies Platelet Estimate Large Platelets Plt Morphology Comment RBC Morphology Polychromasia Hypochromasia Basophilic Stippling Microcytosis Target Cells Ovalocytes [place] Cells Schistocytes VBG pH VBG pCO2 VBG pO2 VBG HCO3 VBG O2 Saturation VBG Base Excess Sodium Potassium Chloride Carbon Dioxide Anion Gap BUN Creatinine Estim Creat Clear Calc Estimated GFR POC Glucose 218 H Random Glucose Calcium Phosphorus Magnesium Stool Occult Blood Random Vancomycin COVID-19 ([facility]) COVID-19 Tabtor Com Blood Type Antibody Screen Crossmatch Microbiology Microbiology Results: Microbiology 02/03/24 06:58 Blood - Venous Blood Culture - Preliminary No growth after 24 hours. 02/03/24 06:58 Blood - Venous Blood Culture - Preliminary No growth after 24 hours. 01/29/24 Unknown Bile Gram Stain - Final 01/29/24 Unknown Bile Routine Culture - Final No growth after 2 days 01/29/24 Unknown Bile Anaerobic Culture - Final NO GROWTH AFTER 5 DAYS 01/31/24 10:21 Blood - Venous Blood Culture - Preliminary No growth after 48 hours. 01/31/24 10:21 Blood - Venous Blood Culture - Preliminary No growth after 48 hours. 01/27/24 10:19 Blood - Venous Blood Culture - Final No growth after 5 days. 01/27/24 10:19 Blood - Venous Blood Culture - Final No growth after 5 days. 01/25/24 12:04 Pleural Fluid Gram Stain - Final 01/25/24 12:04 Pleural Fluid Routine Culture - Final No growth after 2 days 01/25/24 12:04 Pleural Fluid Anaerobic Culture - Final NO GROWTH AFTER 5 DAYS 01/23/24 16:34 Sputum - Suctioned Gram Stain - Final 01/23/24 16:34 Sputum - Suctioned Sputum Culture - Final Pseudomonas aeruginosa 01/21/24 04:03 Blood - Venous Blood Culture - Final No growth after 5 days. 01/21/24 04:03 Blood - Venous Blood Culture - Final No growth after 5 days. Progress Note: A&P Assessment and plan (1) Respiratory failure: Status: Acute (2) Pneumonia: Status: Acute (3) Non-small cell carcinoma of lung: Status: Acute (4) COPD (chronic obstructive pulmonary disease): Status: Acute (5) Shock: Status: Acute (6) Renal failure: Status: Acute Plan Patient is a 68 Y M w/ obesity, asthma/COPD, lung cancer s/p lobectomy, and prostate cancer w/ metastasis to bone, presenting initially to emergency department on 01/20 w/ dyspnea, found to be in acute on chronic hypoxic respiratory failure, initially on HFNC, though advanced to non-invasive ventilation, found to be positive for COVID and w/ CTA chest not suggestive of pulmonary embolism, though c/f progression of lung and bone metastasis; ICU course c/b worsening respiratory failure, intubated on 01/22, extubated on 01/25, re-intubated on 01/30; ICU course further complicated by acute cholecystitis, s/p cholecystostomy tube on 01/28 N: intubated, minimal arousable despite no sedating gtts CV: shock, likely distributive on norepinephrine gtt, wean as tolerated; recurrent episodes of SVT, metoprolol as needed R: acute hypoxic respiratory failure, intubated 01/22, extubated 01/25, re- intubated 01/30, likely multifactorial including COPD, COVID pneumonia, bacterial pneumonia, metastasis, wean as tolerated GI: acute cholecystitis, s/p cholecystotomy tube 01/28, appreciate IR recommendations : acute renal insufficiency, worsening; to consider hemodialysis today H: profound leukocytosis, slightly improving; anemia, thrombocytopenia to closely monitor; to hold chemical DVT prophylaxis; mechanical devices ID: COVID pneumonia, s/p dexamethasone, remdesivir; bacterial pneumonia on vancomycin, zosyn; acute cholecystitis on zosyn; to follow-up BCx 02/02 E: hyperglycemia, insulin sliding scale P: no acute issues Quality Stroke Does the patient have a stroke diagnosis?: No VTE Prior VTE?: No VTE Risk Level:: Medical - moderate - high VTE Device Contraindication: N/A - Device Ordered VTE Drug Contraindication: Treatment Not Tolerated
--- NOTE | 2024-02-05 08:30 | PM.PNNEP ---
Subjective Subjective Date of Service: 02/05/24 Interval history: 68 y/o male with a medical history of asthma/COPD, lung cancer s/p lobectomy, prostate CA with mets to bone. 01/20 presented with dyspnea, hypoxic respiratory failure, covid + and imaging showing progression of lung and bone mets, requiring ICU admission, extubated 01/25, re-intubated 01/30. course complicated by acute cholecystitis, had cholecystostomy tube 01/28. he has required vasopressor support in addition to mechanical ventilation, has bicarbonate drip at 100ml/hr and bumetanide gtt at 2mg/hr. renal function has been declining. From admission through 01/30, creatinine at baseline (0.64-0.88), 01/30 creatinine increased to 1.30, and has been steadily increasing to 4.71 on 02/03 02/04 creatinine is 4.74, BUN trending up to 93 sodium mildly elevated at 146, potassium within normal limits at 4.2; calcium 7.4, phos 4.6, magnesium 2.7. serum bicarb 22. white blood cell count trending up, platelets low at 58, anemia. continues to make urine though oliguric, 349mL/24 hours had abdominal ultrasound of right side that showed unremarkable right kidney and without hydronephrosis/calculi 01/27. 02/02 urine with moderate protein, small amount of RBCs, no WBCs Physical Exam Vital Signs: Vital Signs: Last Vital Signs Temp 101.3 F H 02/05/24 08:00 Pulse 109 H 02/05/24 08:09 Resp 24 H 02/05/24 08:09 BP 156/62 H 02/05/24 08:00 Pulse Ox 92 02/05/24 08:00 O2 Del Method Mechanical Ventil ation 02/05/24 08:00 O2 Flow Rate 50 02/01/24 22:00 FiO2 50 02/05/24 08:00 BMI result Body Mass Index 30.7 Const: Other: intubated/sedated Resp: Other: intubated Effort & Inspection: normal respiratory effort Auscultation: clear to auscultation bilaterally (anteriorly) Cardio: Jugular venous distension: no JVD Rate: regular rate Rhythm: regular rhythm Heart sounds: S1 normal heart sound present and S2 normal heart sound present GI: Palpation (GI): Soft to palpation and nontender Skin: Lesions: no lesions Rashes: no rashes Extrem: General: Yes edema (trace pitting pedal edema, no ankle edema. ) Objective Data Labs 02/05/24 05:07 02/05/24 05:07 Labs: Laboratory Results - last 24 hr 02/03/24 02/04/24 02/04/24 13:42 09:32 11:39 WBC RBC Hgb Hct MCV MCH MCHC RDW Plt Count MPV Immature Gran % (Auto) Neut % (Auto) Lymph % (Auto) [place] % (Auto) Eos % (Auto) Baso % (Auto) Lymph # (Auto) [place] # (Auto) Eos # (Auto) Baso # (Auto) Abs Immat Gran (auto) Absolute Neuts (auto) Absolute Nucleated RBC Nucleated RBC % (auto) Neutrophils % (Manual) Band Neutrophils % Lymphocytes % (Manual) Monocytes % (Manual) Myelocytes % Abs Neuts (Manual) Lymphocytes # (Manual) Monocytes # (Manual) Myelocytes # Nucleated RBCs Toxic Granulation Dohle Bodies Platelet Estimate Large Platelets Plt Morphology Comment RBC Morphology Polychromasia Hypochromasia Basophilic Stippling Microcytosis Target Cells Ovalocytes [place] Cells Schistocytes VBG pH VBG pCO2 VBG pO2 VBG HCO3 VBG O2 Saturation VBG Base Excess Sodium Potassium Chloride Carbon Dioxide Anion Gap BUN Creatinine Estim Creat Clear Calc Estimated GFR POC Glucose 351 H* 342 H Random Glucose Calcium Phosphorus Magnesium Stool Occult Blood Random Vancomycin COVID-19 ([facility]) COVID-19 Clin Com Blood Type A Positive Antibody Screen NEGATIVE Crossmatch See Detail 02/04/24 02/04/24 02/04/24 14:04 17:26 18:20 WBC RBC Hgb Hct MCV MCH MCHC RDW Plt Count MPV Immature Gran % (Auto) Neut % (Auto) Lymph % (Auto) [place] % (Auto) Eos % (Auto) Baso % (Auto) Lymph # (Auto) [place] # (Auto) Eos # (Auto) Baso # (Auto) Abs Immat Gran (auto) Absolute Neuts (auto) Absolute Nucleated RBC Nucleated RBC % (auto) Neutrophils % (Manual) Band Neutrophils % Lymphocytes % (Manual) Monocytes % (Manual) Myelocytes % Abs Neuts (Manual) Lymphocytes # (Manual) Monocytes # (Manual) Myelocytes # Nucleated RBCs Toxic Granulation Dohle Bodies Platelet Estimate Large Platelets Plt Morphology Comment RBC Morphology Polychromasia Hypochromasia Basophilic Stippling Microcytosis Target Cells Ovalocytes [place] Cells Schistocytes VBG pH VBG pCO2 VBG pO2 VBG HCO3 VBG O2 Saturation VBG Base Excess Sodium 143 Potassium 4.2 Chloride 103 Carbon Dioxide 24 Anion Gap 20 BUN 81 H Creatinine 4.68 H* Estim Creat Clear Calc 17.2 Estimated GFR 12 POC Glucose 265 H 311 H Random Glucose 362 H* Calcium 7.9 L D Phosphorus 5.3 H Magnesium 2.6 Stool Occult Blood Random Vancomycin COVID-19 ([facility]) COVID-19 Clin Com Blood Type Antibody Screen Crossmatch 02/04/24 02/04/24 02/04/24 19:50 23:26 Unknown WBC RBC Hgb Hct MCV MCH MCHC RDW Plt Count MPV Immature Gran % (Auto) Neut % (Auto) Lymph % (Auto) [place] % (Auto) Eos % (Auto) Baso % (Auto) Lymph # (Auto) [place] # (Auto) Eos # (Auto) Baso # (Auto) Abs Immat Gran (auto) Absolute Neuts (auto) Absolute Nucleated RBC Nucleated RBC % (auto) Neutrophils % (Manual) Band Neutrophils % Lymphocytes % (Manual) Monocytes % (Manual) Myelocytes % Abs Neuts (Manual) Lymphocytes # (Manual) Monocytes # (Manual) Myelocytes # Nucleated RBCs Toxic Granulation Dohle Bodies Platelet Estimate Large Platelets Plt Morphology Comment RBC Morphology Polychromasia Hypochromasia Basophilic Stippling Microcytosis Target Cells Ovalocytes [place] Cells Schistocytes VBG pH VBG pCO2 VBG pO2 VBG HCO3 VBG O2 Saturation VBG Base Excess Sodium Potassium Chloride Carbon Dioxide Anion Gap BUN Creatinine Estim Creat Clear Calc Estimated GFR POC Glucose 344 H Random Glucose Calcium Phosphorus Magnesium Stool Occult Blood POSITIVE Random Vancomycin COVID-19 ([facility]) Positive A COVID-19 Clin Com See Note Blood Type Antibody Screen Crossmatch 02/05/24 02/05/24 02/05/24 00:53 01:56 03:01 WBC RBC Hgb Hct MCV MCH MCHC RDW Plt Count MPV Immature Gran % (Auto) Neut % (Auto) Lymph % (Auto) [place] % (Auto) Eos % (Auto) Baso % (Auto) Lymph # (Auto) [place] # (Auto) Eos # (Auto) Baso # (Auto) Abs Immat Gran (auto) Absolute Neuts (auto) Absolute Nucleated RBC Nucleated RBC % (auto) Neutrophils % (Manual) Band Neutrophils % Lymphocytes % (Manual) Monocytes % (Manual) Myelocytes % Abs Neuts (Manual) Lymphocytes # (Manual) Monocytes # (Manual) Myelocytes # Nucleated RBCs Toxic Granulation Dohle Bodies Platelet Estimate Large Platelets Plt Morphology Comment RBC Morphology Polychromasia Hypochromasia Basophilic Stippling Microcytosis Target Cells Ovalocytes [place] Cells Schistocytes VBG pH VBG pCO2 VBG pO2 VBG HCO3 VBG O2 Saturation VBG Base Excess Sodium Potassium Chloride Carbon Dioxide Anion Gap BUN Creatinine Estim Creat Clear Calc Estimated GFR POC Glucose 282 H 360 H* 288 H Random Glucose Calcium Phosphorus Magnesium Stool Occult Blood Random Vancomycin COVID-19 ([facility]) COVID-19 [place] [employer] Blood Type Antibody Screen Crossmatch 02/05/24 02/05/24 02/05/24 03:59 04:58 05:04 WBC RBC Hgb Hct MCV MCH MCHC RDW Plt Count MPV Immature Gran % (Auto) Neut % (Auto) Lymph % (Auto) [place] % (Auto) Eos % (Auto) Baso % (Auto) Lymph # (Auto) [place] # (Auto) Eos # (Auto) Baso # (Auto) Abs Immat Gran (auto) Absolute Neuts (auto) Absolute Nucleated RBC Nucleated RBC % (auto) Neutrophils % (Manual) Band Neutrophils % Lymphocytes % (Manual) Monocytes % (Manual) Myelocytes % Abs Neuts (Manual) Lymphocytes # (Manual) Monocytes # (Manual) Myelocytes # Nucleated RBCs Toxic Granulation Dohle Bodies Platelet Estimate Large Platelets Plt Morphology Comment RBC Morphology Polychromasia Hypochromasia Basophilic Stippling Microcytosis Target Cells Ovalocytes [place] Cells Schistocytes VBG pH 7.32 VBG pCO2 52 VBG pO2 64 VBG HCO3 27 H VBG O2 Saturation 90.0 VBG Base Excess 0.8 Sodium Potassium Chloride Carbon Dioxide Anion Gap BUN Creatinine Estim Creat Clear Calc Estimated GFR POC Glucose 290 H 261 H Random Glucose Calcium Phosphorus Magnesium Stool Occult Blood Random Vancomycin COVID-19 ([facility]) COVID-19 [facility] Com Blood Type Antibody Screen Crossmatch 02/05/24 02/05/24 02/05/24 05:07 06:11 07:09 WBC 35.2 H* RBC 3.17 L Hgb 8.5 L D Hct 25.6 L MCV 80.8 MCH 26.8 L MCHC 33.2 RDW 19.6 H Plt Count 58 L MPV Not Reportable Immature Gran % (Auto) Cancelled Neut % (Auto) Cancelled Lymph % (Auto) Cancelled [place] % (Auto) Cancelled Eos % (Auto) Cancelled Baso % (Auto) Cancelled Lymph # (Auto) Cancelled [place] # (Auto) Cancelled Eos # (Auto) Cancelled Baso # (Auto) Cancelled Abs Immat Gran (auto) Cancelled Absolute Neuts (auto) Cancelled Absolute Nucleated RBC 0.310 H Nucleated RBC % (auto) 0.9 H Neutrophils % (Manual) 93 H Band Neutrophils % 4 Lymphocytes % (Manual) 1 L Monocytes % (Manual) 1 L Myelocytes % 1 Abs Neuts (Manual) 34.1 H Lymphocytes # (Manual) 0.4 L Monocytes # (Manual) 0.4 Myelocytes # 0.4 Nucleated RBCs 1 H Toxic Granulation PRESENT Dohle Bodies PRESENT Platelet Estimate DECREASED Large Platelets PRESENT Plt Morphology Comment NOTE RBC Morphology NOTED Polychromasia 1+ (0-2) Hypochromasia 1+ (5-14) Basophilic Stippling 1+ (0-2) Microcytosis 1+ (5-14) Target Cells 1+ (5-14) Ovalocytes 1+ (5-14) [place] Cells 1+ (0-2) Schistocytes 1+ (0-2) VBG pH VBG pCO2 VBG pO2 VBG HCO3 VBG O2 Saturation VBG Base Excess Sodium 146 H Potassium 4.2 Chloride 100 Carbon Dioxide 22 Anion Gap 28 H BUN 93 H Creatinine 4.74 H* Estim Creat Clear Calc 17.4 Estimated GFR 12 POC Glucose 238 H 218 H Random Glucose 289 H Calcium 7.4 L D Phosphorus 4.6 H Magnesium 2.7 H Stool Occult Blood Random Vancomycin COVID-19 ([facility]) COVID-19 Clin Com Blood Type Antibody Screen Crossmatch 02/05/24 08:00 WBC RBC Hgb Hct MCV MCH MCHC RDW Plt Count MPV Immature Gran % (Auto) Neut % (Auto) Lymph % (Auto) [place] % (Auto) Eos % (Auto) Baso % (Auto) Lymph # (Auto) [place] # (Auto) Eos # (Auto) Baso # (Auto) Abs Immat Gran (auto) Absolute Neuts (auto) Absolute Nucleated RBC Nucleated RBC % (auto) Neutrophils % (Manual) Band Neutrophils % Lymphocytes % (Manual) Monocytes % (Manual) Myelocytes % Abs Neuts (Manual) Lymphocytes # (Manual) Monocytes # (Manual) Myelocytes # Nucleated RBCs Toxic Granulation Dohle Bodies Platelet Estimate Large Platelets Plt Morphology Comment RBC Morphology Polychromasia Hypochromasia Basophilic Stippling Microcytosis Target Cells Ovalocytes [place] Cells Schistocytes VBG pH VBG pCO2 VBG pO2 VBG HCO3 VBG O2 Saturation VBG Base Excess Sodium Potassium Chloride Carbon Dioxide Anion Gap BUN Creatinine Estim Creat Clear Calc Estimated GFR POC Glucose Random Glucose Calcium Phosphorus Magnesium Stool Occult Blood Random Vancomycin 20.5 H COVID-19 ([facility]) COVID-19 Clin Com Blood Type Antibody Screen Crossmatch Microbiology Microbiology Results: Microbiology 02/03/24 06:58 Blood - Venous Blood Culture - Preliminary No growth after 24 hours. 02/03/24 06:58 Blood - Venous Blood Culture - Preliminary No growth after 24 hours. 01/29/24 Unknown Bile Gram Stain - Final 01/29/24 Unknown Bile Routine Culture - Final No growth after 2 days 01/29/24 Unknown Bile Anaerobic Culture - Final NO GROWTH AFTER 5 DAYS 01/31/24 10:21 Blood - Venous Blood Culture - Preliminary No growth after 48 hours. 01/31/24 10:21 Blood - Venous Blood Culture - Preliminary No growth after 48 hours. 01/27/24 10:19 Blood - Venous Blood Culture - Final No growth after 5 days. 01/27/24 10:19 Blood - Venous Blood Culture - Final No growth after 5 days. 01/25/24 12:04 Pleural Fluid Gram Stain - Final 01/25/24 12:04 Pleural Fluid Routine Culture - Final No growth after 2 days 01/25/24 12:04 Pleural Fluid Anaerobic Culture - Final NO GROWTH AFTER 5 DAYS 01/23/24 16:34 Sputum - Suctioned Gram Stain - Final 01/23/24 16:34 Sputum - Suctioned Sputum Culture - Final Pseudomonas aeruginosa 01/21/24 04:03 Blood - Venous Blood Culture - Final No growth after 5 days. 01/21/24 04:03 Blood - Venous Blood Culture - Final No growth after 5 days. Procedures Date of Service Date of Service: 02/05/24 Assessment & Plan Assessment and plan (1) ALEJANDRA (acute kidney injury): Status: Acute (2) Metastatic malignant neoplasm to prostate: Status: Acute (3) COVID-19: Status: Acute (4) Acute and chronic respiratory failure with hypoxia: Status: Acute Plan ALEJANDRA likely multifactorial, related to hypoperfusion from ongonig hemodynamic instability, vanco toxicity may also be playing role paitent is clearly volume up at 25L positive, total body water overload also oliguiric in addition to fluid overload. Family and ICU team have elected to move forward with HD, pt has HD catheter in place this a.m. Plan for HD today, Thursday (02/05) and Thursday (02/07), will run even today. Avoid nephrotoxins continue regular electrolyte, renal function studies and blood pressure monitoring will continue to follow Discussed with Dr Pierre Time Spent With Patient Time: Total time managing care of this patient today ____ minutes. Progress Note: Quality Stroke Does the patient have a stroke diagnosis?: No
[2024-02-05] MEDS: 0.9 % Sodium Chloride Flush 3 ML SYRINGE IVFLUSH ×3 (08:32→23:56)
[2024-02-05 08:34] LABS: Vancomycin Random 20.5 mcg/mL (15-20)
[2024-02-05] MEDS: Midazolam HCl/PF 2 MG/2 ML VIAL 4 MG IVPUSH ×2 (08:35→15:42)
--- NOTE | 2024-02-05 08:50 | W.PM.CCHP ---
Procedures Date of Service Date of Service: 02/05/24 Central Line Placement Left IJ: Consent for Procedure: Elective - informed consent obtained Time out performed: Yes Patient placed on monitor/pulse ox: Yes MD prep: mask, gown and gloves Central line prep: Chlorhexidine scrub Ultrasound used for placement: Yes Central line lumen inserted: triple Post procedure: sutured in place, good blood return, all ports aspirated, flushed, capped and sterile dressing applied Post procedure x-ray: other (awaiting chest x-ray) Patient tolerated procedure: well and no complications Complications: none
[2024-02-05 09:05] LABS: Glucose, Whole Blood 189 mg/dL (60-115)
[2024-02-05 09:05] LABS: Glucose, Whole Blood 185 mg/dL (60-115)
[2024-02-05] MEDS: Piperacillin Sodium/Tazobactam 4.5 GM in 0.9 % Sodium Chloride 100 ML IV ×2 (09:14→19:50)
--- NOTE | 2024-02-05 09:30 | MHC.CLN ---
F/U PT REMAINS INTUBATED AND SEDATED TF ON HOLD PER PROVIDER R/T HIGH RESIDUALS WHEN TF TO RESUME; RECOMMEND INCREASE PROMOTE TF TO MAX GOAL RATE 75ML/HR WITH 240ML FREE WATER FLUSHES Q 6 HRS TO PROVIDE 1800KCALS (2356 TOTAL KCALS WITH SEDATION; 30KCALS/KG BASED ON IBW), 112G PROTEIN (1.3G/KG), 2470ML TOTAL WATER FROM FORMULA AND FLUSHES (32ML/HR) MONITOR TOLERANCE AND LYTES
[2024-02-05 10:27] LABS: Glucose, Whole Blood 135 mg/dL (60-115)
[2024-02-05 11:17] LABS: Glucose, Whole Blood 132 mg/dL (60-115)
--- NOTE | 2024-02-05 12:55 | MHC.CM.PN ---
Pt continues on ventilatory support - remains COVID +. No changes to care plan at this time. CM to follow
[2024-02-05 13:15] LABS: Glucose, Whole Blood 123 mg/dL (60-115)
[2024-02-05 14:43] LABS: Glucose, Whole Blood 117 mg/dL (60-115)
--- NOTE | 2024-02-05 15:26 | W.PM.CCHP ---
Procedures Date of Service Date of Service: 02/05/24 Bronchoscopy Consent for Procedure: Elective - informed consent obtained Route: endotracheal tube Sedation/Analgesia: midazolam Monitor: EKG and pulse oximetry Findings: appreciable mass effect causing complete obstruction of L main bronchus just distal to the rolly; some thin, white secretions R lung, easily suctioned; no appreciable lesions R lung to level of secondary bronchi throughout Complications: none
[2024-02-05 16:07] LABS: Glucose, Whole Blood 125 mg/dL (60-115)
[2024-02-05] MEDS: Metoprolol Tartrate 5 MG/5 ML VIAL 10 MG IVPUSH (17:23)
[2024-02-05 17:57] LABS: Glucose, Whole Blood 147 mg/dL (60-115)
[2024-02-05 18:49] LABS: Anion Gap 23 (12-20); Blood Urea Nitrogen 72 mg/dL (9-16); Calcium 8.5 mg/dL (8.4-10.2); Carbon Dioxide 21 mmol/L (22-29); Chloride 103 mmol/L (96-108); Creatinine Clr Calc Pharmacy 20.9; Estimated Glomerular Filt Rate 15; Glucose Random 168 mg/dL (60-115); Magnesium 2.4 mg/dL (1.6-2.6); Phosphorus 4.4 mg/dL (2.7-4.5); Potassium 4.5 mmol/L (3.3-5.1); Sodium 142 mmol/L (135-145)
[2024-02-05 20:17] LABS: Glucose, Whole Blood 168 mg/dL (60-115)
[2024-02-05 22:13] LABS: Glucose, Whole Blood 184 mg/dL (60-115)
[2024-02-05 23:42] LABS: Glucose, Whole Blood 167 mg/dL (60-115)
[2024-02-05] MEDS: Norepinephrine Bitartrate/NS 32 MG/250 ML PLAST..BAG 6.17 MG IVCONT (23:53)
[2024-02-06] VITALS (47 sets, daily range): BP systolic 68–147; BP diastolic 42–83; PULSE 62–172; RESP 11–29; TEMP 35–39.7; O2SAT 91–100; BMI 30.9
[2024-02-06] MEDS: Acetaminophen 1,000 MG/100 ML PIGGYBACK 400 MG IV (03:09)
[2024-02-06] MEDS: Albuterol/Iprat 2.5/0.5MG 3 ML AMPUL.NEB INHALE ×3 (03:41→19:04)
[2024-02-06 05:18] LABS: Hematocrit 24.4 % (42.0-52.0); Hemoglobin 7.8 g/dl (14.0-18.0); Mean Corpuscular Hemoglobin 26.6 pg (27.0-33.0); Mean Corpuscular Volume 83.3 fL (80.0-98.0); Platelet Count 58 X10*3/uL (160-400); Red Blood Count 2.93 X10*6/uL (4.60-5.80); Red Cell Distribution Width 20.5 % (11.0-16.0)
[2024-02-06 05:19] LABS: Venous Blood Gas Refer to POC result
[2024-02-06 05:21] LABS: NRBC Pct Auto 1.8 /100WBC (0.0-0.2); White Blood Count 36.1 X10*3/uL (4.8-10.8)
[2024-02-06 05:23] LABS: VBG HCO3 17 mmol/L (22-26); VBG pCO2 27 mmHg; VBG pO2 84 mmHg
[2024-02-06 05:52] LABS: Atypical Lymph Absolute Manual 0.4 x10*3/uL; Atypical Lymphs Percent Manual 1 % (0-6); Band Neutrophils Percent 4 % (3-5); Lymphocytes Absolute Manual 0.4 X10*3/uL (1.2-4.9); Lymphocytes Percent Manual 1 % (20-40); Microcytosis 1+ (5-14) /OIF; Monocytes Absolute Manual 0.4 X10*3/uL (0.1-1.2); Monocytes Percent Manual 1 % (2-11); Myelocytes Absolute 0.4 X10*/uL; Myelocytes Percent 1 %; Neutrophils Absolute Manual 34.7 X10*3/uL (2.0-8.3); Neutrophils Percent Manual 92 % (45-73); Nucleated Red Blood Cells 3 /100WBC (0-0); Ovalocytes 1+ (5-14) /OIF; Platelet Estimate DECREASED (NORMAL); Platelet Morphology Comment NORMAL; RBC Morphology NOTED; Schistocytes 1+ (0-2) /OIF
[2024-02-06] MEDS: Hydrocortisone Sod Succ/PF 100 MG VIAL 50 MG IVPUSH ×4 (05:52→22:55)
[2024-02-06 05:53] LABS: Basophilic Stippling 1+ (0-2) /OIF; Burr Cells 1+ (0-2) /OIF; Dohle Bodies PRESENT; Polychromasia 1+ (0-2) /OIF; Target Cells 1+ (5-14) /OIF; Toxic Granulation PRESENT
[2024-02-06 06:08] LABS: Anion Gap 28 (12-20); Blood Urea Nitrogen 93 mg/dL (9-16); Calcium 7.1 mg/dL (8.4-10.2); Carbon Dioxide 16 mmol/L (22-29); Chloride 103 mmol/L (96-108); Creatinine Clr Calc Pharmacy 18.3; Estimated Glomerular Filt Rate 13; Glucose Random 224 mg/dL (60-115); Magnesium 2.6 mg/dL (1.6-2.6); Phosphorus 4.5 mg/dL (2.7-4.5); Potassium 4.9 mmol/L (3.3-5.1); Sodium 142 mmol/L (135-145)
[2024-02-06] MEDS: Insulin Lispro 100 UNIT/ML 3 ML VIAL SUBCUT ×4 (06:13→23:00)
[2024-02-06] MEDS: Calcium Chloride 1 GM/10 ML SYRINGE IVPUSH ×3 (06:15→18:43)
--- NOTE | 2024-02-06 08:15 | P.PNCC_ITS ---
Subjective Subjective Date of Service: 02/06/24 Interval History: no significant overnight events; continued critical and guarded clinical status Critical Care Time (minutes): 60 Physical Exam 2 Vital Signs: Vital Signs: Last Vital Signs Temp 99.7 F 02/06/24 08:00 Pulse 96 02/06/24 08:00 Resp 22 H 02/06/24 08:00 BP 132/63 02/06/24 08:00 Pulse Ox 96 02/06/24 08:00 O2 Del Method Mechanical Ventil ation 02/06/24 08:00 O2 Flow Rate 50 02/01/24 22:00 FiO2 50 02/06/24 08:00 BMI result Body Mass Index 30.9 Const: Other: intubated; opens eyes, though does not track; no appreciable purposeful movements HEENT: Head: Yes normal to inspection, Yes normocephalic and Yes atraumatic Eyes: General: appearance normal, both eyes and all related structures Neck: Neck: Yes normal visual inspection, Yes full ROM, Yes no meningeal signs, Yes trachea midline and Yes supple Chest: Chest palpation & inspection: normal inspection of the chest Resp: Other: diminished breath sounds throughout, L greater than R; no overt rales, rhonchi, wheezing Cardio: Rate: regular rate Rhythm: regular rhythm GI: Inspection: Yes normal to inspection, No Abdominal wall edema and No distended Palpation (GI): Soft to palpation, not firm, nontender, no guarding and not rigid Skin: General skin exam: no rashes or lesions noted Neuro: General: tone normal and no meningeal signs Extrem: Other: appreciable anasarca General: Yes full ROM and Yes capillary refill normal Psych: Other: unable to assess Objective Data Labs 02/06/24 05:07 02/06/24 05:07 Labs: Laboratory Results - last 24 hr 02/05/24 02/05/24 02/05/24 07:55 08:00 08:58 WBC RBC Hgb Hct MCV MCH MCHC RDW Plt Count MPV Immature Gran % (Auto) Neut % (Auto) Lymph % (Auto) [place] % (Auto) Eos % (Auto) Baso % (Auto) Lymph # (Auto) [place] # (Auto) Eos # (Auto) Baso # (Auto) Abs Immat Gran (auto) Absolute Neuts (auto) Absolute Nucleated RBC Nucleated RBC % (auto) Neutrophils % (Manual) Band Neutrophils % Lymphocytes % (Manual) Atypical Lymphs % (Man) Monocytes % (Manual) Myelocytes % Abs Neuts (Manual) Lymphocytes # (Manual) Atyp Lymphs # (Manual) Monocytes # (Manual) Myelocytes # Nucleated RBCs Toxic Granulation Dohle Bodies Platelet Estimate Plt Morphology Comment RBC Morphology Polychromasia Basophilic Stippling Microcytosis Target Cells Ovalocytes [place]ama Cells Schistocytes VBG pH VBG pCO2 VBG pO2 VBG HCO3 VBG O2 Saturation VBG Base Excess Sodium Potassium Chloride Carbon Dioxide Anion Gap BUN Creatinine Estim Creat Clear Calc Estimated GFR POC Glucose 189 H 185 H Random Glucose Calcium Phosphorus Magnesium Random Vancomycin 20.5 H 02/05/24 02/05/24 02/05/24 10:24 11:06 13:10 WBC RBC Hgb Hct MCV MCH MCHC RDW Plt Count MPV Immature Gran % (Auto) Neut % (Auto) Lymph % (Auto) [place] % (Auto) Eos % (Auto) Baso % (Auto) Lymph # (Auto) [place] # (Auto) Eos # (Auto) Baso # (Auto) Abs Immat Gran (auto) Absolute Neuts (auto) Absolute Nucleated RBC Nucleated RBC % (auto) Neutrophils % (Manual) Band Neutrophils % Lymphocytes % (Manual) Atypical Lymphs % (Man) Monocytes % (Manual) Myelocytes % Abs Neuts (Manual) Lymphocytes # (Manual) Atyp Lymphs # (Manual) Monocytes # (Manual) Myelocytes # Nucleated RBCs Toxic Granulation Dohle Bodies Platelet Estimate Plt Morphology Comment RBC Morphology Polychromasia Basophilic Stippling Microcytosis Target Cells Ovalocytes Carmen Cells Schistocytes VBG pH VBG pCO2 VBG pO2 VBG HCO3 VBG O2 Saturation VBG Base Excess Sodium Potassium Chloride Carbon Dioxide Anion Gap BUN Creatinine Estim Creat Clear Calc Estimated GFR POC Glucose 135 H 132 H 123 H Random Glucose Calcium Phosphorus Magnesium Random Vancomycin 02/05/24 02/05/24 02/05/24 14:36 16:02 17:54 WBC RBC Hgb Hct MCV MCH MCHC RDW Plt Count MPV Immature Gran % (Auto) Neut % (Auto) Lymph % (Auto) [place] % (Auto) Eos % (Auto) Baso % (Auto) Lymph # (Auto) [place] # (Auto) Eos # (Auto) Baso # (Auto) Abs Immat Gran (auto) Absolute Neuts (auto) Absolute Nucleated RBC Nucleated RBC % (auto) Neutrophils % (Manual) Band Neutrophils % Lymphocytes % (Manual) Atypical Lymphs % (Man) Monocytes % (Manual) Myelocytes % Abs Neuts (Manual) Lymphocytes # (Manual) Atyp Lymphs # (Manual) Monocytes # (Manual) Myelocytes # Nucleated RBCs Toxic Granulation Dohle Bodies Platelet Estimate Plt Morphology Comment RBC Morphology Polychromasia Basophilic Stippling Microcytosis Target Cells Ovalocytes Carmen Cells Schistocytes VBG pH VBG pCO2 VBG pO2 VBG HCO3 VBG O2 Saturation VBG Base Excess Sodium Potassium Chloride Carbon Dioxide Anion Gap BUN Creatinine Estim Creat Clear Calc Estimated GFR POC Glucose 117 H 125 H 147 H Random Glucose Calcium Phosphorus Magnesium Random Vancomycin 02/05/24 02/05/24 02/05/24 18:14 20:09 22:09 WBC RBC Hgb Hct MCV MCH MCHC RDW Plt Count MPV Immature Gran % (Auto) Neut % (Auto) Lymph % (Auto) [place] % (Auto) Eos % (Auto) Baso % (Auto) Lymph # (Auto) [place] # (Auto) Eos # (Auto) Baso # (Auto) Abs Immat Gran (auto) Absolute Neuts (auto) Absolute Nucleated RBC Nucleated RBC % (auto) Neutrophils % (Manual) Band Neutrophils % Lymphocytes % (Manual) Atypical Lymphs % (Man) Monocytes % (Manual) Myelocytes % Abs Neuts (Manual) Lymphocytes # (Manual) Atyp Lymphs # (Manual) Monocytes # (Manual) Myelocytes # Nucleated RBCs Toxic Granulation Dohle Bodies Platelet Estimate Plt Morphology Comment RBC Morphology Polychromasia Basophilic Stippling Microcytosis Target Cells Ovalocytes [place] Cells Schistocytes VBG pH VBG pCO2 VBG pO2 VBG HCO3 VBG O2 Saturation VBG Base Excess Sodium 142 Potassium 4.5 Chloride 103 Carbon Dioxide 21 L Anion Gap 23 H BUN 72 H Creatinine 3.94 H Estim Creat Clear Calc 20.9 Estimated GFR 15 POC Glucose 168 H 184 H Random Glucose 168 H Calcium 8.5 D Phosphorus 4.4 Magnesium 2.4 Random Vancomycin 02/05/24 02/06/24 02/06/24 23:38 05:07 05:17 WBC 36.1 H* RBC 2.93 L Hgb 7.8 L Hct 24.4 L MCV 83.3 MCH 26.6 L MCHC 32.0 RDW 20.5 H Plt Count 58 L MPV TNP Immature Gran % (Auto) Cancelled Neut % (Auto) Cancelled Lymph % (Auto) Cancelled [place] % (Auto) Cancelled Eos % (Auto) Cancelled Baso % (Auto) Cancelled Lymph # (Auto) Cancelled [place] # (Auto) Cancelled Eos # (Auto) Cancelled Baso # (Auto) Cancelled Abs Immat Gran (auto) Cancelled Absolute Neuts (auto) Cancelled Absolute Nucleated RBC 0.650 H Nucleated RBC % (auto) 1.8 H Neutrophils % (Manual) 92 H Band Neutrophils % 4 Lymphocytes % (Manual) 1 L Atypical Lymphs % (Man) 1 Monocytes % (Manual) 1 L Myelocytes % 1 Abs Neuts (Manual) 34.7 H Lymphocytes # (Manual) 0.4 L Atyp Lymphs # (Manual) 0.4 Monocytes # (Manual) 0.4 Myelocytes # 0.4 Nucleated RBCs 3 H Toxic Granulation PRESENT Dohle Bodies PRESENT Platelet Estimate DECREASED Plt Morphology Comment NORMAL RBC Morphology NOTED Polychromasia 1+ (0-2) Basophilic Stippling 1+ (0-2) Microcytosis 1+ (5-14) Target Cells 1+ (5-14) Ovalocytes 1+ (5-14) Carmen Cells 1+ (0-2) Schistocytes 1+ (0-2) VBG pH 7.40 VBG pCO2 27 VBG pO2 84 VBG HCO3 17 L VBG O2 Saturation 98.0 VBG Base Excess -6.0 Sodium 142 Potassium 4.9 Chloride 103 Carbon Dioxide 16 L Anion Gap 28 H BUN 93 H Creatinine 4.50 H* Estim Creat Clear Calc 18.3 Estimated GFR 13 POC Glucose 167 H Random Glucose 224 H Calcium 7.1 L D Phosphorus 4.5 Magnesium 2.6 Random Vancomycin 17.0 Microbiology Microbiology Results: Microbiology 01/31/24 10:21 Blood - Venous Blood Culture - Final No growth after 5 days. 01/31/24 10:21 Blood - Venous Blood Culture - Final No growth after 5 days. 02/03/24 06:58 Blood - Venous Blood Culture - Preliminary No growth after 48 hours. 02/03/24 06:58 Blood - Venous Blood Culture - Preliminary No growth after 48 hours. 01/29/24 Unknown Bile Gram Stain - Final 01/29/24 Unknown Bile Routine Culture - Final No growth after 2 days 01/29/24 Unknown Bile Anaerobic Culture - Final NO GROWTH AFTER 5 DAYS 01/27/24 10:19 Blood - Venous Blood Culture - Final No growth after 5 days. 01/27/24 10:19 Blood - Venous Blood Culture - Final No growth after 5 days. 01/25/24 12:04 Pleural Fluid Gram Stain - Final 01/25/24 12:04 Pleural Fluid Routine Culture - Final No growth after 2 days 01/25/24 12:04 Pleural Fluid Anaerobic Culture - Final NO GROWTH AFTER 5 DAYS 01/23/24 16:34 Sputum - Suctioned Gram Stain - Final 01/23/24 16:34 Sputum - Suctioned Sputum Culture - Final Pseudomonas aeruginosa 01/21/24 04:03 Blood - Venous Blood Culture - Final No growth after 5 days. 01/21/24 04:03 Blood - Venous Blood Culture - Final No growth after 5 days. Progress Note: A&P Assessment and plan (1) Respiratory failure: Status: Acute (2) Pneumonia: Status: Acute (3) Non-small cell carcinoma of lung: Status: Acute (4) COPD (chronic obstructive pulmonary disease): Status: Acute (5) Renal failure: Status: Acute (6) Prostate cancer metastatic to bone: Status: Acute Plan Patient is a 68 Y M w/ obesity, asthma/COPD, lung cancer s/p lobectomy, and prostate cancer w/ metastasis to bone, presenting initially to emergency department on 01/20 w/ dyspnea, found to be in acute on chronic hypoxic respiratory failure, initially on HFNC, though advanced to non-invasive ventilation, found to be positive for COVID and w/ CTA chest not suggestive of pulmonary embolism, though c/f progression of lung and bone metastasis; ICU course c/b worsening respiratory failure, intubated on 01/22, extubated on 01/25, re-intubated on 01/30; ICU course further complicated by acute cholecystitis, s/p cholecystostomy tube on 01/28 N: intubated, minimal arousable despite no sedating gtts CV: shock, likely distributive on norepinephrine gtt, wean as tolerated; stress- dose steroids in setting of chronic steroid use; recurrent episodes of SVT, metoprolol as needed R: acute hypoxic respiratory failure, intubated 01/22, extubated 01/25, re- intubated 01/30, likely multifactorial including COPD, COVID pneumonia, bacterial pneumonia, metastasis, wean as tolerated; of note, bronchoscopy 02/04 demonstrating mass effect L main bronchus c/b complete obstruction GI: acute cholecystitis, s/p cholecystotomy tube 01/28, appreciate IR recommendations : acute renal insufficiency, worsening, c/b uremia, volume overload; hemodialysis initiated 02/04 H: profound leukocytosis, slightly improving; anemia, thrombocytopenia to closely monitor; to hold chemical DVT prophylaxis; mechanical devices ID: COVID pneumonia, s/p dexamethasone, remdesivir; bacterial pneumonia on vancomycin, meropenem; acute cholecystitis on meropenem; to follow-up BCx 02/02 E: hyperglycemia, insulin gtt P: no acute issues Quality Stroke Does the patient have a stroke diagnosis?: No VTE Prior VTE?: No VTE Risk Level:: Medical - moderate - high VTE Device Contraindication: N/A - Device Ordered VTE Drug Contraindication: Treatment Not Tolerated
[2024-02-06] MEDS: Chlorhexidine Gluc Oral Rinse 15 ML MOUTHWASH BUCCAL ×3 (08:33→20:46)
[2024-02-06] MEDS: 0.9 % Sodium Chloride Flush 3 ML SYRINGE IVFLUSH ×2 (08:55→16:59)
[2024-02-06 11:49] LABS: Glucose, Whole Blood 181 mg/dL (60-115)
[2024-02-06] MEDS: Heparin Sodium,Porcine 5,000 UNIT/ML VIAL 5000 UNIT INTRACATH (12:00)
[2024-02-06] MEDS: Amiodarone/Dextrose 150 MG/100 ML PLAST..BAG 600 MG IV ×2 (12:27→13:20)
[2024-02-06] MEDS: Meropenem 500 MG VIAL IVPUSH ×2 (12:32→20:46)
[2024-02-06] MEDS: Vasopressin 20 UNIT/100 ML INFUS..BTL 12 UNIT IVCONT ×2 (12:34→17:52)
[2024-02-06] MEDS: Amiodarone HCL 900 MG in 0.9 % Sodium Chloride 500 ML 34.53 MG IVCONT (12:37)
[2024-02-06] MEDS: Sodium Bicarbonate 8.4% 50 MEQ/50 ML SYRINGE IVPUSH (13:10)
--- NOTE | 2024-02-06 13:18 | P.ACPN_ITS ---
Advanced Care Planning Note Advanced Care Planning Note Discussed with: family member(s) Time spent (in minutes): 60 Narrative: I performed a bronchoscopy on Mr. Raphael on 02/05 that unfortunately demonstrated a mass effect on the proximal L main bronchus; I separately told both Mr. Raphael's , Sierra, and Mr. Raphael's daughter, Nupur, of these results; I spent an additional 1 hour discussing Mr. Raphael's clinical and guarded status with Nupur and her ; we discussed Mr. Raphael's worsening multi-system organ failure, including pulmonary, renal, cardiovascular, as well as Mr. Raphael's persistent encephalopathy despite no sedating medications; Marcin calzada expressed understanding; Nupur questioned if a prolonged hospital stay may cause more discomfort without a meaningful outcome; we discussed the pros and cons of comfort-focused care; I encouraged Nupur to discuss next steps with her family, including Sierra Problems Discussed (1) Respiratory failure: (2) Pneumonia: (3) Non-small cell carcinoma of lung: (4) COPD (chronic obstructive pulmonary disease): (5) Renal failure: (6) Prostate cancer metastatic to bone:
[2024-02-06 13:23] LABS: Alanine Aminotransferase 7 U/L (0-40); Albumin Level 2.5 g/dL (3.5-5.0); Alkaline Phosphatase 196 U/L (39-117); Anion Gap 24 (12-20); Aspartate Amino Transferase 30 U/L (5-37); Bilirubin Total 1.3 mg/dL (0.0-1.0); Blood Urea Nitrogen 67 mg/dL (9-16); Calcium 7.3 mg/dL (8.4-10.2); Carbon Dioxide 19 mmol/L (22-29); Chloride 101 mmol/L (96-108); Creatinine Clr Calc Pharmacy 23.2; Estimated Glomerular Filt Rate 17; Glucose Random 233 mg/dL (60-115); Magnesium 2.4 mg/dL (1.6-2.6); Phosphorus 5.2 mg/dL (2.7-4.5); Potassium 4.5 mmol/L (3.3-5.1); Sodium 139 mmol/L (135-145); Total Protein 6.1 g/dL (6.5-8.0)
[2024-02-06 13:26] LABS: Lactic Acid 2.2 mmol/L (0.5-2.0)
[2024-02-06] MEDS: Albumin Human 25 % 50 ML 100 ML IV (13:42)
[2024-02-06 15:04] LABS: Reflex Lactate? Lactic Acid Added
[2024-02-06] MEDS: Metoprolol Tartrate 10 MG in 0.9 % Sodium Chloride 50 ML 240 MG IV (15:35)
[2024-02-06 16:02] LABS: ~Lactic Acid-LAB USE ONLY 2.4 mmol/L (0.5-2.0)
--- NOTE | 2024-02-06 17:31 | HO.SKINPHOTO ---
Location: sacrum + bilateral buttocks Category: Pressure Injury Present on Admission Stage: unstageable to sacrum, surrounded by COVID-19 skin manifestations, stage II to b/l gluteal folds Location: medial back Category: COVID-19 skin manifestation small irregular purple area
[2024-02-06 17:36] LABS: Reflex Lactate? 2 Y
[2024-02-06 18:22] LABS: Anion Gap 22 (12-20); Blood Urea Nitrogen 75 mg/dL (9-16); Calcium 7.2 mg/dL (8.4-10.2); Carbon Dioxide 20 mmol/L (22-29); Chloride 102 mmol/L (96-108); Creatinine Clr Calc Pharmacy 21.9; Estimated Glomerular Filt Rate 16; Glucose Random 239 mg/dL (60-115); Magnesium 2.5 mg/dL (1.6-2.6); Phosphorus 5.6 mg/dL (2.7-4.5); Potassium 4.6 mmol/L (3.3-5.1); Sodium 139 mmol/L (135-145)
[2024-02-06 18:23] LABS: ~Lactic Acid-LAB USE ONLY 3.1 mmol/L (0.5-2.0)
[2024-02-06] MEDS: Norepinephrine Bitartrate/NS 32 MG/250 ML PLAST..BAG 3.7 MG IVCONT (22:55)
[2024-02-06 23:03] LABS: Glucose, Whole Blood 210 mg/dL (60-115)
[2024-02-07] VITALS (40 sets, daily range): BP systolic 97–177; BP diastolic 39–77; PULSE 73–86; RESP 9–31; TEMP 35–37.7; O2SAT 91–100; BMI 31.0
[2024-02-07] MEDS: Vasopressin 20 UNIT/100 ML INFUS..BTL 12 UNIT IVCONT (01:42)
[2024-02-07] MEDS: Albuterol/Iprat 2.5/0.5MG 3 ML AMPUL.NEB INHALE ×4 (05:00→19:47)
[2024-02-07] MEDS: Amiodarone HCL 900 MG in 0.9 % Sodium Chloride 500 ML 17.27 MG IVCONT (05:01)
[2024-02-07] MEDS: Hydrocortisone Sod Succ/PF 100 MG VIAL 50 MG IVPUSH ×4 (05:02→23:16)
[2024-02-07 05:23] LABS: Hematocrit 24.9 % (42.0-52.0); Mean Corpuscular HGB Conc 32.1 g/dl (31.0-36.0); Mean Corpuscular Hemoglobin 26.7 pg (27.0-33.0); Red Cell Distribution Width 21.1 % (11.0-16.0)
[2024-02-07 05:24] LABS: VBG Base Excess -5.9 mmol/L; VBG HCO3 18 mmol/L (22-26); VBG pCO2 32 mmHg; VBG pH 7.36 (7.32-7.43); VBG pO2 86 mmHg
[2024-02-07 05:24] LABS: Venous Blood Gas Refer to POC result
[2024-02-07 05:29] LABS: NRBC Pct Auto 2.4 /100WBC (0.0-0.2); Platelet Count 56 X10*3/uL (160-400); White Blood Count 37.3 X10*3/uL (4.8-10.8)
[2024-02-07 05:42] LABS: Anion Gap 24 (12-20); Blood Urea Nitrogen 99 mg/dL (9-16); Calcium 6.6 mg/dL (8.4-10.2); Carbon Dioxide 18 mmol/L (22-29); Chloride 101 mmol/L (96-108); Creatinine Clr Calc Pharmacy 21.4; Estimated Glomerular Filt Rate 15; Glucose Random 263 mg/dL (60-115); Magnesium 2.5 mg/dL (1.6-2.6); Phosphorus 5.6 mg/dL (2.7-4.5); Potassium 4.6 mmol/L (3.3-5.1); Sodium 138 mmol/L (135-145)
[2024-02-07 05:51] LABS: Band Neutrophils Percent 6 % (3-5); Lymphocytes Percent Manual 8 % (20-40); Neutrophils Absolute Manual 34.3 X10*3/uL (2.0-8.3); Neutrophils Percent Manual 86 % (45-73); Nucleated Red Blood Cells 6 /100WBC (0-0)
[2024-02-07 05:52] LABS: Basophilic Stippling 1+ (0-2) /OIF; Large Platelet PRESENT; Macrocytosis 1+ (5-14) /OIF; Microcytosis 1+ (5-14) /OIF; Ovalocytes 1+ (5-14) /OIF; Platelet Estimate DECREASED (NORMAL); Platelet Morphology Comment NOTED; Polychromasia 2+ (3-5) /OIF; RBC Morphology NOTED; Schistocytes 1+ (0-2) /OIF; Target Cells 1+ (5-14) /OIF
[2024-02-07 05:53] LABS: Smudge Cells PRESENT; Toxic Granulation PRESENT
[2024-02-07] MEDS: Insulin Lispro 100 UNIT/ML 3 ML VIAL SUBCUT ×4 (05:55→23:39)
[2024-02-07] MEDS: Calcium Chloride 1 GM/10 ML SYRINGE IVPUSH (06:17)
[2024-02-07] MEDS: Chlorhexidine Gluc Oral Rinse 15 ML MOUTHWASH BUCCAL ×3 (08:15→21:08)
[2024-02-07] MEDS: Meropenem 500 MG VIAL IVPUSH ×2 (08:16→21:08)
[2024-02-07] MEDS: 0.9 % Sodium Chloride Flush 3 ML SYRINGE IVFLUSH ×3 (08:16→23:12)
[2024-02-07 08:24] LABS: Vancomycin Random 12.9 mcg/mL (15-20)
--- NOTE | 2024-02-07 08:36 | P.PNCC_ITS ---
Subjective Subjective Date of Service: 02/07/24 Interval History: no significant overnight events; continued critical and guarded clinical status Critical Care Time (minutes): 60 Physical Exam 2 Vital Signs: Vital Signs: Last Vital Signs Temp 98.4 F 02/07/24 08:00 Pulse 79 02/07/24 08:00 Resp 25 H 02/07/24 08:00 BP 107/39 L 02/07/24 08:00 Pulse Ox 93 02/07/24 08:00 O2 Del Method Mechanical Ventil ation 02/07/24 08:00 O2 Flow Rate 50 02/01/24 22:00 FiO2 60 02/07/24 08:00 BMI result Body Mass Index 31.0 Const: Other: intubated, opens eyes though does not track; no appreciable purposeful movements HEENT: Head: Yes normal to inspection, Yes normocephalic and Yes atraumatic Eyes: General: appearance normal, both eyes and all related structures Neck: Neck: Yes normal visual inspection, Yes full ROM, Yes no meningeal signs, Yes trachea midline and Yes supple Chest: Chest palpation & inspection: normal inspection of the chest Resp: Other: decreased breath sounds throughout, L greater than R; no overt rales, rhonchi, wheezing Effort & Inspection: normal respiratory effort Cardio: Rate: regular rate Rhythm: regular rhythm GI: Inspection: Yes normal to inspection, No Abdominal wall edema and No distended Palpation (GI): Soft to palpation, not firm, nontender, no guarding and not rigid Skin: General skin exam: no rashes or lesions noted Neuro: General: tone normal and no meningeal signs Extrem: Other: appreciable anasarca General: Yes normal to inspection, Yes full ROM and Yes capillary refill normal Psych: Other: unable to assess Objective Data Labs 02/07/24 05:12 02/07/24 05:12 Labs: Laboratory Results - last 24 hr 02/06/24 02/06/24 02/06/24 11:46 13:04 15:18 WBC RBC Hgb Hct MCV MCH MCHC RDW Plt Count MPV Immature Gran % (Auto) Neut % (Auto) Lymph % (Auto) [place] % (Auto) Eos % (Auto) Baso % (Auto) Lymph # (Auto) [place] # (Auto) Eos # (Auto) Baso # (Auto) Abs Immat Gran (auto) Absolute Neuts (auto) Absolute Nucleated RBC Nucleated RBC % (auto) Neutrophils % (Manual) Band Neutrophils % Lymphocytes % (Manual) Abs Neuts (Manual) Lymphocytes # (Manual) Nucleated RBCs Smudge Cells Toxic Granulation Platelet Estimate Large Platelets Plt Morphology Comment RBC Morphology Polychromasia Basophilic Stippling Microcytosis Macrocytosis Target Cells Ovalocytes Schistocytes VBG pH VBG pCO2 VBG pO2 VBG HCO3 VBG O2 Saturation VBG Base Excess Sodium 139 Potassium 4.5 Chloride 101 Carbon Dioxide 19 L Anion Gap 24 H BUN 67 H Creatinine 3.57 H Estim Creat Clear Calc 23.2 Estimated GFR 17 POC Glucose 181 H Random Glucose 233 H Lactic Acid 2.2 H* Lactic Acid F/U @ 2Hr 2.4 H* Lactic Acid F/U @ 4Hr Calcium 7.3 L Phosphorus 5.2 H Magnesium 2.4 Total Bilirubin 1.3 H AST 30 ALT 7 Alkaline Phosphatase 196 H Total Protein 6.1 L Albumin 2.5 L Random Vancomycin 02/06/24 02/06/24 02/07/24 18:01 22:58 05:12 WBC 37.3 H* RBC 3.00 L Hgb 8.0 L Hct 24.9 L MCV 83.0 MCH 26.7 L MCHC 32.1 RDW 21.1 H Plt Count 56 L MPV TNP Immature Gran % (Auto) Cancelled Neut % (Auto) Cancelled Lymph % (Auto) Cancelled [place] % (Auto) Cancelled Eos % (Auto) Cancelled Baso % (Auto) Cancelled Lymph # (Auto) Cancelled [place] # (Auto) Cancelled Eos # (Auto) Cancelled Baso # (Auto) Cancelled Abs Immat Gran (auto) Cancelled Absolute Neuts (auto) Cancelled Absolute Nucleated RBC 0.900 H Nucleated RBC % (auto) 2.4 H Neutrophils % (Manual) 86 H Band Neutrophils % 6 H Lymphocytes % (Manual) 8 L Abs Neuts (Manual) 34.3 H Lymphocytes # (Manual) 3.0 Nucleated RBCs 6 H Smudge Cells PRESENT Toxic Granulation PRESENT Platelet Estimate DECREASED Large Platelets PRESENT Plt Morphology Comment NOTED RBC Morphology NOTED Polychromasia 2+ (3-5) Basophilic Stippling 1+ (0-2) Microcytosis 1+ (5-14) Macrocytosis 1+ (5-14) Target Cells 1+ (5-14) Ovalocytes 1+ (5-14) Schistocytes 1+ (0-2) VBG pH VBG pCO2 VBG pO2 VBG HCO3 VBG O2 Saturation VBG Base Excess Sodium 139 138 Potassium 4.6 4.6 Chloride 102 101 Carbon Dioxide 20 L 18 L Anion Gap 22 H 24 H BUN 75 H 99 H Creatinine 3.79 H 3.88 H Estim Creat Clear Calc 21.9 21.4 Estimated GFR 16 15 POC Glucose 210 H Random Glucose 239 H 263 H Lactic Acid Lactic Acid F/U @ 2Hr Lactic Acid F/U @ 4Hr 3.1 H* Calcium 7.2 L 6.6 L D Phosphorus 5.6 H 5.6 H Magnesium 2.5 2.5 Total Bilirubin AST ALT Alkaline Phosphatase Total Protein Albumin Random Vancomycin 02/07/24 02/07/24 05:19 08:03 WBC RBC Hgb Hct MCV MCH MCHC RDW Plt Count MPV Immature Gran % (Auto) Neut % (Auto) Lymph % (Auto) [place] % (Auto) Eos % (Auto) Baso % (Auto) Lymph # (Auto) [place] # (Auto) Eos # (Auto) Baso # (Auto) Abs Immat Gran (auto) Absolute Neuts (auto) Absolute Nucleated RBC Nucleated RBC % (auto) Neutrophils % (Manual) Band Neutrophils % Lymphocytes % (Manual) Abs Neuts (Manual) Lymphocytes # (Manual) Nucleated RBCs Smudge Cells Toxic Granulation Platelet Estimate Large Platelets Plt Morphology Comment RBC Morphology Polychromasia Basophilic Stippling Microcytosis Macrocytosis Target Cells Ovalocytes Schistocytes VBG pH 7.36 VBG pCO2 32 VBG pO2 86 VBG HCO3 18 L VBG O2 Saturation 97.0 VBG Base Excess -5.9 Sodium Potassium Chloride Carbon Dioxide Anion Gap BUN Creatinine Estim Creat Clear Calc Estimated GFR POC Glucose Random Glucose Lactic Acid Lactic Acid F/U @ 2Hr Lactic Acid F/U @ 4Hr Calcium Phosphorus Magnesium Total Bilirubin AST ALT Alkaline Phosphatase Total Protein Albumin Random Vancomycin 12.9 L Microbiology Microbiology Results: Microbiology 01/31/24 10:21 Blood - Venous Blood Culture - Final No growth after 5 days. 01/31/24 10:21 Blood - Venous Blood Culture - Final No growth after 5 days. 02/03/24 06:58 Blood - Venous Blood Culture - Preliminary No growth after 48 hours. 02/03/24 06:58 Blood - Venous Blood Culture - Preliminary No growth after 48 hours. 01/29/24 Unknown Bile Gram Stain - Final 01/29/24 Unknown Bile Routine Culture - Final No growth after 2 days 01/29/24 Unknown Bile Anaerobic Culture - Final NO GROWTH AFTER 5 DAYS 01/27/24 10:19 Blood - Venous Blood Culture - Final No growth after 5 days. 01/27/24 10:19 Blood - Venous Blood Culture - Final No growth after 5 days. 01/25/24 12:04 Pleural Fluid Gram Stain - Final 01/25/24 12:04 Pleural Fluid Routine Culture - Final No growth after 2 days 01/25/24 12:04 Pleural Fluid Anaerobic Culture - Final NO GROWTH AFTER 5 DAYS 01/23/24 16:34 Sputum - Suctioned Gram Stain - Final 01/23/24 16:34 Sputum - Suctioned Sputum Culture - Final Pseudomonas aeruginosa 01/21/24 04:03 Blood - Venous Blood Culture - Final No growth after 5 days. 01/21/24 04:03 Blood - Venous Blood Culture - Final No growth after 5 days. Progress Note: A&P Assessment and plan (1) Respiratory failure: Status: Acute (2) Pneumonia: Status: Acute (3) Non-small cell carcinoma of lung: Status: Acute (4) COPD (chronic obstructive pulmonary disease): Status: Acute (5) Shock: Status: Acute (6) Renal failure: Status: Acute Plan Patient is a 68 Y M w/ obesity, asthma/COPD, lung cancer s/p lobectomy, and prostate cancer w/ metastasis to bone, presenting initially to emergency department on 01/20 w/ dyspnea, found to be in acute on chronic hypoxic respiratory failure, initially on HFNC, though advanced to non-invasive ventilation, found to be positive for COVID and w/ CTA chest not suggestive of pulmonary embolism, though c/f progression of lung and bone metastasis; ICU course c/b worsening respiratory failure, intubated on 01/22, extubated on 01/25, re-intubated on 01/30; ICU course further complicated by acute cholecystitis, s/p cholecystostomy tube on 01/28 N: intubated, minimally arousable despite no sedating gtts CV: shock, likely distributive on norepinephrine, vasopressin gtt, wean as tolerated; stress-dose steroids in setting of chronic steroid use; recurrent episodes of SVT, amiodarone gtt, metoprolol as needed R: acute hypoxic respiratory failure, intubated 01/22, extubated 01/25, re- intubated 01/30, likely multifactorial including COPD, COVID pneumonia, bacterial pneumonia, metastasis, wean as tolerated; of note, bronchoscopy 02/04 demonstrating mass effect L main bronchus c/b complete obstruction GI: acute cholecystitis, s/p cholecystotomy tube 01/28, appreciate IR recommendations : acute renal insufficiency, worsening, c/b uremia, volume overload; hemodialysis initiated 02/04, last session 02/05 H: profound leukocytosis, slightly improving; anemia, thrombocytopenia to closely monitor; to hold chemical DVT prophylaxis; mechanical devices ID: COVID pneumonia, s/p dexamethasone, remdesivir; bacterial pneumonia on vancomycin, meropenem; acute cholecystitis on meropenem; to follow-up BCx 02/02 E: hyperglycemia, insulin gtt P: no acute issues Quality Stroke Does the patient have a stroke diagnosis?: No VTE Prior VTE?: No VTE Risk Level:: Medical - moderate - high VTE Device Contraindication: N/A - Device Ordered VTE Drug Contraindication: Treatment Not Tolerated
--- NOTE | 2024-02-07 09:02 | HE.PHANOTE ---
RE: VANCO DOSING Trough came back as 12.9 mg/L which is subtherapeutic for respiratory infection. Renal function is improving so dosing pt with one time 500 mg. Next trough is scheduled for @0800 02/08/24 to adjust dose accordingly.
[2024-02-07] MEDS: vancomycin HCL 500 MG in 0.9 % Sodium Chloride 100 ML 110 MG IV (10:39)
[2024-02-07 12:02] LABS: Glucose, Whole Blood 255 mg/dL (60-115)
[2024-02-07 17:58] LABS: Glucose, Whole Blood 239 mg/dL (60-115)
--- NOTE | 2024-02-07 18:27 | PC.NURSE ---
assumed care of patient 07:00 Pt provided full bed bath 08:30 with CHG wipes Rectal tube in place patent and draining small amount of liquid stool Pt repositioned Q2HR, mouth care provided Q2H Pt sinus rhythm on tele for majority of this shift. 18:12 Pt went into SVT HR 130-150. 18:19 Pt transitioned back to sinus rhythm on tele HR 70s blood pressures remained stable during this time, SaO2 91-95% on FiO2 50% via ventilator
[2024-02-07 18:33] LABS: Anion Gap 25 (12-20); Blood Urea Nitrogen 108 mg/dL (9-16); Calcium 6.6 mg/dL (8.4-10.2); Carbon Dioxide 17 mmol/L (22-29); Chloride 101 mmol/L (96-108); Creatinine Clr Calc Pharmacy 18.6; Estimated Glomerular Filt Rate 13; Glucose Random 290 mg/dL (60-115); Magnesium 2.6 mg/dL (1.6-2.6); Phosphorus 5.8 mg/dL (2.7-4.5); Potassium 4.9 mmol/L (3.3-5.1); Sodium 138 mmol/L (135-145)
[2024-02-07] MEDS: Norepinephrine Bitartrate/NS 32 MG/250 ML PLAST..BAG IVCONT (23:12)
[2024-02-08] VITALS (37 sets, daily range): BP systolic 103–137; BP diastolic 43–58; PULSE 76–94; RESP 15–28; TEMP 34.5–38.2; O2SAT 90–96; BMI 32.1
[2024-02-08 00:18] LABS: Glucose, Whole Blood 258 mg/dL (60-115)
[2024-02-08] MEDS: Amiodarone HCL 900 MG in 0.9 % Sodium Chloride 500 ML 17.27 MG IVCONT (01:33)
[2024-02-08] MEDS: Albuterol/Iprat 2.5/0.5MG 3 ML AMPUL.NEB INHALE ×4 (03:06→19:19)
[2024-02-08 05:29] LABS: Venous Blood Gas Refer to POC result
[2024-02-08 05:30] LABS: VBG Base Excess -7.2 mmol/L; VBG HCO3 19 mmol/L (22-26); VBG pCO2 42 mmHg; VBG pH 7.26 (7.32-7.43); VBG pO2 82 mmHg
[2024-02-08 05:30] LABS: Hematocrit 24.3 % (42.0-52.0); Hemoglobin 7.8 g/dl (14.0-18.0); Mean Corpuscular HGB Conc 32.1 g/dl (31.0-36.0); Mean Corpuscular Volume 84.1 fL (80.0-98.0); NRBC Pct Auto 3.1 /100WBC (0.0-0.2); PLT CLUMP 1; Red Blood Count 2.89 X10*6/uL (4.60-5.80); Red Cell Distribution Width 22.3 % (11.0-16.0)
[2024-02-08 05:32] LABS: White Blood Count 39.5 X10*3/uL (4.8-10.8)
[2024-02-08 05:42] LABS: Albumin Level 2.4 g/dL (3.5-5.0); Anion Gap 24 (12-20); Blood Urea Nitrogen 115 mg/dL (9-16); Calcium 6.4 mg/dL (8.4-10.2); Carbon Dioxide 18 mmol/L (22-29); Chloride 100 mmol/L (96-108); Creatinine Clr Calc Pharmacy 18.3; Estimated Glomerular Filt Rate 13; Glucose Random 304 mg/dL (60-115); Magnesium 2.7 mg/dL (1.6-2.6); Potassium 5.3 mmol/L (3.3-5.1); Sodium 137 mmol/L (135-145)
[2024-02-08] MEDS: Hydrocortisone Sod Succ/PF 100 MG VIAL 50 MG IVPUSH (05:45)
[2024-02-08 05:47] LABS: Band Neutrophils Percent 4 % (3-5); Eosinophils Absolute Manual 0.4 X10*3/uL (0.0-0.4); Eosinophils Percent Manual 1 % (0-4); Lymphocytes Absolute Manual 0.4 X10*3/uL (1.2-4.9); Lymphocytes Percent Manual 1 % (20-40); Monocytes Absolute Manual 0.8 X10*3/uL (0.1-1.2); Monocytes Percent Manual 2 % (2-11); Neutrophils Absolute Manual 37.9 X10*3/uL (2.0-8.3); Neutrophils Percent Manual 92 % (45-73); Nucleated Red Blood Cells 3 /100WBC (0-0)
[2024-02-08 05:49] LABS: Basophilic Stippling 1+ (0-2) /OIF; Hypochromasia 1+ (5-14) /OIF; Macrocytosis 1+ (5-14) /OIF; Microcytosis 1+ (5-14) /OIF; Ovalocytes 1+ (5-14) /OIF; Platelet Estimate DECREASED (NORMAL); Platelet Morphology Comment NORMAL; Polychromasia 2+ (3-5) /OIF; RBC Morphology NOTED; Target Cells 1+ (5-14) /OIF; Tear Drop Cells 1+ (0-2) /OIF; Toxic Granulation PRESENT
[2024-02-08 05:51] LABS: Platelet Count 83 X10*3/uL (160-400)
[2024-02-08] MEDS: Insulin Lispro 100 UNIT/ML 3 ML VIAL SUBCUT ×3 (05:53→17:34)
[2024-02-08 06:06] LABS: Glucose, Whole Blood 301 mg/dL (60-115)
[2024-02-08] MEDS: Sodium Bicarbonate 8.4% 50 MEQ/50 ML SYRINGE IVPUSH (06:15)
[2024-02-08] MEDS: Albumin Human 25 % 100 ML IV ×2 (06:15→07:43)
[2024-02-08] MEDS: Calcium Chloride 1 GM/10 ML SYRINGE IVPUSH (06:15)
[2024-02-08] MEDS: Chlorhexidine Gluc Oral Rinse 15 ML MOUTHWASH BUCCAL ×3 (07:43→21:58)
[2024-02-08] MEDS: 0.9 % Sodium Chloride Flush 3 ML SYRINGE IVFLUSH ×2 (07:44→16:28)
[2024-02-08] MEDS: Insulin Regular, Human 100 UNIT/ML 10 ML VIAL 10 UNIT IVPUSH (07:46)
--- NOTE | 2024-02-08 09:14 | W.PM.DNNEP ---
Subjective Subjective Date of Service: 02/08/24 This patient was seen during dialysis. Interval history: no significant overnight events; continued critical and guarded clinical status Physical Exam Vital Signs: Vital Signs: Last Vital Signs Temp 98.8 F 02/08/24 07:58 Pulse 84 02/08/24 07:58 Resp 23 H 02/08/24 07:58 BP 134/54 L 02/08/24 07:58 Pulse Ox 94 02/08/24 08:00 O2 Del Method Mechanical Ventil ation 02/08/24 07:58 O2 Flow Rate 50 02/01/24 22:00 FiO2 50 02/08/24 08:00 BMI result Body Mass Index 32.1 Assessment & Plan Assessment and plan (1) ALEJANDRA (acute kidney injury): Status: Acute (2) Metastatic malignant neoplasm to prostate: Status: Acute (3) COVID-19: Status: Acute (4) Acute and chronic respiratory failure with hypoxia: Status: Acute Plan ALEJANDRA likely multifactorial, related to hypoperfusion from ongonig hemodynamic instability, vanco toxicity may also be playing role paitent is clearly volume up at 25L positive, total body water overload oliguiric in addition to fluid overload. Plan for HD today, Avoid nephrotoxins continue regular electrolyte, renal function studies and blood pressure monitoring will continue to follow Time Spent With Patient Time: Total time managing care of this patient today ____ minutes. Procedures Date of Service Date of Service: 02/08/24
[2024-02-08 09:16] LABS: Glucose, Whole Blood 193 mg/dL (60-115)
--- NOTE | 2024-02-08 09:50 | MHC.CLN ---
F/U PT REMAINS INTUBATED, NO PROPOFOL. RECEIVING HEMODIALYSIS. DISCUSSED AT MD ROUNDS. CHANGING FORMULA TO NEPRO AT 50 ML PER HOUR, CONTINUE FREE WATER FLUSHES 240 ML Q 6 HOURS. PROVIDES 2160 KCALS (27.7 KCALS/KG IBW); 97 G PROTEIN (1.24 G/KG IBW); 872 ML FREE WATER FROM FORMULA PLUS 960 ML [id number] ML TOTAL FREE WATER (23.4 ML/KG IBW). MONITOR TOLERANCE AND LYTES.
[2024-02-08] MEDS: Heparin Sodium,Porcine 5,000 UNIT/ML VIAL 5000 UNIT INTRACATH (10:15)
[2024-02-08] MEDS: levoFLOXacin/D5W 750 MG/150 ML PIGGYBACK 100 MG IV (10:18)
--- NOTE | 2024-02-08 10:56 | P.PNCC_ITS ---
Subjective Subjective Date of Service: 02/08/24 Interval History: 68-year-old gentleman with underlying asthma/COPD overlap syndrome, lung cancer status post lobectomy, and prostate cancer now with metastasis to bone and chest admitted on 01/21/2024 with worsening dyspnea initially requiring high-flow nasal cannula, but with worsening respiratory status thus requiring noninvasive positive pressure ventilatory support, also noted to be positive for COVID-19. Patient admitted to intensive care unit. Hospital course significant for progressive respiratory distress and pulmonary aspiration requiring intubation on 01/23/2024. CT chest demonstrate progression of underlying metastatic disease. Required intubation on 01/23/2024 for airway protection on background of acute hypoxic respiratory failure. Edit 01/26/2024 and required re- intubation on 01/31/2024 secondary to hypoxia likely aspiration related. Hospital course further complicated by multiorgan failure including renal failure requiring dialysis, postobstructive Pseudomonas pneumonia, encephalopathy, AFib with RVR requiring amiodarone load, thrombocytopenia. No events overnight. Critical Care Time (minutes): 90 Physical Exam 2 Vital Signs: Vital Signs: Last Vital Signs Temp 98.2 F 02/08/24 10:00 Pulse 88 02/08/24 10:00 Resp 23 H 02/08/24 10:00 BP 103/51 L 02/08/24 10:00 Pulse Ox 90 L 02/08/24 10:00 O2 Del Method Mechanical Ventil ation 02/08/24 10:00 O2 Flow Rate 50 02/01/24 22:00 FiO2 50 02/08/24 10:00 BMI result Body Mass Index 32.1 Const: General: no acute distress Nutritional Appearance: Edematous Eyes: Sclerae: sclerae normal Neck: Neck: Yes no lymphadenopathy, Yes trachea midline and Yes supple Resp: Auscultation: crackles (Bilateral) Cardio: Rate: regular rate Rhythm: regular rhythm Heart sounds: no gallops, no murmurs and no rubs GI: Palpation (GI): Soft to palpation and Other GI palpation findings present ( Nontender) Auscultation: normal bowel sounds Extrem: General: No clubbing, No cyanosis and Yes edema (2+ bilateral) Objective Data Labs 02/08/24 05:16 02/08/24 05:16 Labs: Laboratory Results - last 24 hr 02/07/24 02/07/24 02/07/24 11:44 17:48 18:00 WBC RBC Hgb Hct MCV MCH MCHC RDW Plt Count Absolute Nucleated RBC Nucleated RBC % (auto) Neutrophils % (Manual) Band Neutrophils % Lymphocytes % (Manual) Monocytes % (Manual) Eosinophils % (Manual) Abs Neuts (Manual) Lymphocytes # (Manual) Monocytes # (Manual) Eosinophils # (Manual) Nucleated RBCs Toxic Granulation Platelet Estimate Plt Morphology Comment RBC Morphology Polychromasia Hypochromasia Basophilic Stippling Microcytosis Macrocytosis Target Cells Tear Drop Cells Ovalocytes VBG pH VBG pCO2 VBG pO2 VBG HCO3 VBG O2 Saturation VBG Base Excess Sodium 138 Potassium 4.9 Chloride 101 Carbon Dioxide 17 L Anion Gap 25 H BUN 108 H Creatinine 4.46 H* Estim Creat Clear Calc 18.6 Estimated GFR 13 POC Glucose 255 H 239 H Random Glucose 290 H Calcium 6.6 L Phosphorus 5.8 H Magnesium 2.6 Albumin 02/07/24 02/08/24 02/08/24 23:24 05:16 05:25 WBC 39.5 H* RBC 2.89 L Hgb 7.8 L Hct 24.3 L MCV 84.1 MCH 27.0 MCHC 32.1 RDW 22.3 H Plt Count 83 L D Absolute Nucleated RBC 1.240 H Nucleated RBC % (auto) 3.1 H Neutrophils % (Manual) 92 H Band Neutrophils % 4 Lymphocytes % (Manual) 1 L Monocytes % (Manual) 2 Eosinophils % (Manual) 1 Abs Neuts (Manual) 37.9 H Lymphocytes # (Manual) 0.4 L Monocytes # (Manual) 0.8 Eosinophils # (Manual) 0.4 Nucleated RBCs 3 H Toxic Granulation PRESENT Platelet Estimate DECREASED Plt Morphology Comment NORMAL RBC Morphology NOTED Polychromasia 2+ (3-5) Hypochromasia 1+ (5-14) Basophilic Stippling 1+ (0-2) Microcytosis 1+ (5-14) Macrocytosis 1+ (5-14) Target Cells 1+ (5-14) Tear Drop Cells 1+ (0-2) Ovalocytes 1+ (5-14) VBG pH 7.26 L VBG pCO2 42 VBG pO2 82 VBG HCO3 19 L VBG O2 Saturation 96.0 VBG Base Excess -7.2 Sodium 137 Potassium 5.3 H Chloride 100 Carbon Dioxide 18 L Anion Gap 24 H BUN 115 H Creatinine 4.61 H* Estim Creat Clear Calc 18.3 Estimated GFR 13 POC Glucose 258 H Random Glucose 304 H Calcium 6.4 L Phosphorus 6.0 H Magnesium 2.7 H Albumin 2.4 L 02/08/24 02/08/24 05:48 09:11 WBC RBC Hgb Hct MCV MCH MCHC RDW Plt Count Absolute Nucleated RBC Nucleated RBC % (auto) Neutrophils % (Manual) Band Neutrophils % Lymphocytes % (Manual) Monocytes % (Manual) Eosinophils % (Manual) Abs Neuts (Manual) Lymphocytes # (Manual) Monocytes # (Manual) Eosinophils # (Manual) Nucleated RBCs Toxic Granulation Platelet Estimate Plt Morphology Comment RBC Morphology Polychromasia Hypochromasia Basophilic Stippling Microcytosis Macrocytosis Target Cells Tear Drop Cells Ovalocytes VBG pH VBG pCO2 VBG pO2 VBG HCO3 VBG O2 Saturation VBG Base Excess Sodium Potassium Chloride Carbon Dioxide Anion Gap BUN Creatinine Estim Creat Clear Calc Estimated GFR POC Glucose 301 H 193 H Random Glucose Calcium Phosphorus Magnesium Albumin Microbiology Microbiology Results: Microbiology 02/03/24 06:58 Blood - Venous Blood Culture - Final No growth after 5 days. 02/03/24 06:58 Blood - Venous Blood Culture - Final No growth after 5 days. 01/31/24 10:21 Blood - Venous Blood Culture - Final No growth after 5 days. 01/31/24 10:21 Blood - Venous Blood Culture - Final No growth after 5 days. 01/29/24 Unknown Bile Gram Stain - Final 01/29/24 Unknown Bile Routine Culture - Final No growth after 2 days 01/29/24 Unknown Bile Anaerobic Culture - Final NO GROWTH AFTER 5 DAYS 01/27/24 10:19 Blood - Venous Blood Culture - Final No growth after 5 days. 01/27/24 10:19 Blood - Venous Blood Culture - Final No growth after 5 days. 01/25/24 12:04 Pleural Fluid Gram Stain - Final 01/25/24 12:04 Pleural Fluid Routine Culture - Final No growth after 2 days 01/25/24 12:04 Pleural Fluid Anaerobic Culture - Final NO GROWTH AFTER 5 DAYS 01/23/24 16:34 Sputum - Suctioned Gram Stain - Final 01/23/24 16:34 Sputum - Suctioned Sputum Culture - Final Pseudomonas aeruginosa 01/21/24 04:03 Blood - Venous Blood Culture - Final No growth after 5 days. 01/21/24 04:03 Blood - Venous Blood Culture - Final No growth after 5 days. Progress Note: A&P Assessment and plan (1) Lung cancer: Status: Acute (2) Prostate cancer: Status: Acute (3) COPD (chronic obstructive pulmonary disease): Status: Acute (4) Acute and chronic respiratory failure with hypoxia: Status: Acute (5) ALEJANDRA (acute kidney injury): Status: Acute (6) Pseudomonas pneumonia: Status: Acute (7) Acute encephalopathy: Status: Acute (8) Postobstructive pneumonia: Status: Acute Plan Assessment: 68-year-old gentleman with underlying progressive metastatic disease with likely prostate so admitted with acute on chronic respiratory failure secondary to COVID-19, now requiring ventilatory support Plan: Neuro: Acute encephalopathy, likely uremic versus paraneoplastic. Cardiac: Continue to titrate off pressor support as tolerated. Continue amiodarone drip for recurrent episodes of SVT. Pulmonary: Acute hypoxic respiratory failure secondary to combination of progressive neoplastic disease and Pseudomonas postobstructive pneumonia now requiring ventilatory support, continue to titrate off as tolerated. Renal: Acute renal failure requiring hemodialysis support. Nephrology service care appreciated. Endo: No acute issues. GI: No acute issues. ID: Postobstructive Pseudomonas pneumonia, meropenem switch to Levaquin based on sensitivities. Heme/Onc: Progressive metastatic disease to lung/chest wall and bone. Psych: No acute issues. Miscellaneous: No acute issues. Prophylaxis: Pneumatic compression, famotidine Diet: Tube feeds Critical care time spent: 90 minutes Quality Stroke Does the patient have a stroke diagnosis?: No VTE Prior VTE?: No VTE Risk Level:: Medical - moderate - high VTE Device Contraindication: N/A - Device Ordered VTE Drug Contraindication: Treatment Not Tolerated
[2024-02-08 11:39] LABS: Glucose, Whole Blood 226 mg/dL (60-115)
[2024-02-08] MEDS: HYDROmorphone HCl 0.5 MG/0.5 ML SYRINGE IVPUSH ×2 (12:32→16:29)
[2024-02-08 14:12] LABS: Alanine Aminotransferase 15 U/L (0-40); Albumin Level 2.9 g/dL (3.5-5.0); Alkaline Phosphatase 169 U/L (39-117); Anion Gap 18 (12-20); Aspartate Amino Transferase 41 U/L (5-37); Bilirubin Total 1.3 mg/dL (0.0-1.0); Blood Urea Nitrogen 84 mg/dL (9-16); Calcium 6.5 mg/dL (8.4-10.2); Carbon Dioxide 22 mmol/L (22-29); Chloride 101 mmol/L (96-108); Creatinine Clr Calc Pharmacy 24.6; Estimated Glomerular Filt Rate 18; Glucose Random 242 mg/dL (60-115); Potassium 4.3 mmol/L (3.3-5.1); Sodium 137 mmol/L (135-145); Total Protein 5.9 g/dL (6.5-8.0)
[2024-02-08 17:43] LABS: Glucose, Whole Blood 264 mg/dL (60-115)
[2024-02-08 18:41] LABS: Anion Gap 21 (12-20); Blood Urea Nitrogen 88 mg/dL (9-16); Carbon Dioxide 20 mmol/L (22-29); Chloride 100 mmol/L (96-108); Creatinine Clr Calc Pharmacy 23.2; Estimated Glomerular Filt Rate 17; Glucose Random 289 mg/dL (60-115); Magnesium 2.4 mg/dL (1.6-2.6); Phosphorus 4.8 mg/dL (2.7-4.5); Potassium 4.5 mmol/L (3.3-5.1); Sodium 136 mmol/L (135-145)
[2024-02-08] MEDS: Norepinephrine Bitartrate/NS 32 MG/250 ML PLAST..BAG 3.7 MG IVCONT (23:17)
[2024-02-09] VITALS (46 sets, daily range): BP systolic 92–135; BP diastolic 28–65; PULSE 76–133; RESP 11–32; TEMP 34.8–38.9; O2SAT 88–95; BMI 32.1
[2024-02-09 00:22] LABS: Glucose, Whole Blood 241 mg/dL (60-115)
[2024-02-09] MEDS: 0.9 % Sodium Chloride Flush 3 ML SYRINGE IVFLUSH ×3 (00:26→15:40)
[2024-02-09] MEDS: Insulin Lispro 100 UNIT/ML 3 ML VIAL SUBCUT ×4 (00:27→17:41)
[2024-02-09] MEDS: Amiodarone HCL 900 MG in 0.9 % Sodium Chloride 500 ML 17.27 MG IVCONT (00:27)
--- NOTE | 2024-02-09 02:10 | HO.SKINPHOTO ---
Location: Right Neck Category: [place]
[2024-02-09] MEDS: Albuterol/Iprat 2.5/0.5MG 3 ML AMPUL.NEB INHALE ×4 (04:30→19:15)
[2024-02-09 05:16] LABS: VBG Base Excess -5.7 mmol/L; VBG HCO3 20 mmol/L (22-26); VBG pCO2 42 mmHg; VBG pH 7.28 (7.32-7.43); VBG pO2 67 mmHg
[2024-02-09 05:18] LABS: Venous Blood Gas Refer to POC result
[2024-02-09 05:30] LABS: Hematocrit 23.3 % (42.0-52.0); Mean Corpuscular Hemoglobin 26.8 pg (27.0-33.0); Mean Corpuscular Volume 89.3 fL (80.0-98.0); Mean Platelet Volume 12.3 fL (9.4-12.4); Red Blood Count 2.61 X10*6/uL (4.60-5.80); Red Cell Distribution Width 23.2 % (11.0-16.0)
[2024-02-09 05:31] LABS: Platelet Count 86 X10*3/uL (160-400)
[2024-02-09 05:42] LABS: Albumin Level 2.6 g/dL (3.5-5.0); Magnesium 2.5 mg/dL (1.6-2.6); Phosphorus 4.8 mg/dL (2.7-4.5)
[2024-02-09 05:49] LABS: Band Neutrophils Percent 10 % (3-5); Lymphocytes Absolute Manual 0.9 X10*3/uL (1.2-4.9); Lymphocytes Percent Manual 3 % (20-40); Macrocytosis 1+ (5-14) /OIF; Metamyelocytes Absolute 0.3 X10*3/uL; Metamyelocytes Percent 1 %; Monocytes Absolute Manual 0.6 X10*3/uL (0.1-1.2); Monocytes Percent Manual 2 % (2-11); Neutrophils Absolute Manual 29.1 X10*3/uL (2.0-8.3); Neutrophils Percent Manual 84 % (45-73); Nucleated Red Blood Cells 17 /100WBC (0-0); RBC Morphology NOTED
[2024-02-09 05:50] LABS: Basophilic Stippling 1+ (0-2) /OIF; Hypochromasia 1+ (5-14) /OIF; Large Platelet PRESENT; Microcytosis 1+ (5-14) /OIF; Platelet Estimate DECREASED (NORMAL); Platelet Morphology Comment NOTED; Polychromasia 2+ (3-5) /OIF; Target Cells 1+ (5-14) /OIF; Tear Drop Cells 1+ (0-2) /OIF; Toxic Granulation PRESENT; Toxic Vacuolation PRESENT
[2024-02-09 06:20] LABS: Anion Gap 22 (12-20); Blood Urea Nitrogen 98 mg/dL (9-16); Calcium 6.8 mg/dL (8.4-10.2); Carbon Dioxide 19 mmol/L (22-29); Chloride 100 mmol/L (96-108); Creatinine Clr Calc Pharmacy 21.4; Estimated Glomerular Filt Rate 15; Glucose Random 295 mg/dL (60-115); Potassium 4.5 mmol/L (3.3-5.1); Sodium 136 mmol/L (135-145)
[2024-02-09 06:20] LABS: Glucose, Whole Blood 278 mg/dL (60-115)
[2024-02-09] MEDS: Famotidine/PF 20 MG/2 ML VIAL IVPUSH (08:02)
[2024-02-09] MEDS: Albumin Human 25 % 100 ML IV ×3 (08:02→19:25)
[2024-02-09] MEDS: Chlorhexidine Gluc Oral Rinse 15 ML MOUTHWASH BUCCAL ×2 (08:02→14:07)
[2024-02-09] MEDS: Calcium Gluconate/NaCl,Iso-Osm 2 GM/100 ML PLAST..BAG IV ×2 (08:02→19:25)
--- NOTE | 2024-02-09 09:53 | MHC.CLN ---
F/U PT REMAINS INTUBATED, NO PROPOFOL. RECEIVING HEMODIALYSIS. DISCUSSED AT MD ROUNDS. CHANGING FORMULA TO GLUCERNA AT 80 ML PER HOUR WITH FREE WATER FLUSHES 120 ML Q 8 HOURS. PROVIDES 1920 KCALS (24.6 KCALS/KG IBW); 80 G PROTEIN (1 /KG IBW); 1613 ML FREE WATER FROM FORMULA PLUS 360 ML KCEPINB=4553 ML TOTAL FREE WATER (25.3 ML/KG IBW). MONITOR TOLERANCE AND LYTES.
--- NOTE | 2024-02-09 10:07 | PM.CCPN ---
Subjective Subjective Date of Service: 02/09/24 Interval History: 68-year-old gentleman with underlying asthma/COPD overlap syndrome, lung cancer status post lobectomy, and prostate cancer now with metastasis to bone and chest admitted on 01/21/2024 with worsening dyspnea initially requiring high-flow nasal cannula, but with worsening respiratory status thus requiring noninvasive positive pressure ventilatory support, also noted to be positive for COVID-19. Patient admitted to intensive care unit. Hospital course significant for progressive respiratory distress and pulmonary aspiration requiring intubation on 01/23/2024. CT chest demonstrate progression of underlying metastatic disease. Required intubation on 01/23/2024 for airway protection on background of acute hypoxic respiratory failure. Edit 01/26/2024 and required re-intubation on 01/31/2024 secondary to hypoxia likely aspiration related. Hospital course further complicated by multiorgan failure including renal failure requiring dialysis, postobstructive Pseudomonas pneumonia, encephalopathy, AFib with RVR requiring amiodarone load, and thrombocytopenia. No events overnight. Critical Care Time (minutes): 60 Physical Exam Vital Signs: Vital Signs: Last Vital Signs Temp 101.5 F H 02/09/24 09:00 Pulse 97 02/09/24 09:00 Resp 12 02/09/24 09:00 BP 129/49 L 02/09/24 09:00 Pulse Ox 88 L 02/09/24 09:00 O2 Del Method Mechanical Ventil ation 02/09/24 09:00 O2 Flow Rate 50 02/01/24 22:00 FiO2 50 02/09/24 09:00 BMI result Body Mass Index 32.1 Const: General: no acute distress and ill appearing Nutritional Appearance: Edematous Eyes: Sclerae: sclerae normal Neck: Neck: Yes no lymphadenopathy, Yes trachea midline and Yes supple Resp: Auscultation: crackles (Bilateral) Cardio: Rate: regular rate Rhythm: regular rhythm Heart sounds: no gallops, no murmurs and no rubs GI: Palpation (GI): Soft to palpation and Other GI palpation findings present ( Nontender) Auscultation: normal bowel sounds Extrem: General: No clubbing, No cyanosis and Yes edema (2+ bilateral) Objective Data Labs 02/09/24 05:10 02/09/24 05:10 Labs: Laboratory Results - last 24 hr 02/08/24 02/08/24 02/08/24 11:36 13:44 17:33 WBC RBC Hgb Hct MCV MCH MCHC RDW Plt Count MPV Immature Gran % (Auto) Neut % (Auto) Lymph % (Auto) [place] % (Auto) Eos % (Auto) Baso % (Auto) Lymph # (Auto) [place] # (Auto) Eos # (Auto) Baso # (Auto) Abs Immat Gran (auto) Absolute Neuts (auto) Absolute Nucleated RBC Nucleated RBC % (auto) Neutrophils % (Manual) Band Neutrophils % Lymphocytes % (Manual) Monocytes % (Manual) Metamyelocytes % Abs Neuts (Manual) Lymphocytes # (Manual) Monocytes # (Manual) Metamyelocytes # Nucleated RBCs Toxic Granulation Toxic Vacuolation Platelet Estimate Large Platelets Plt Morphology Comment RBC Morphology Polychromasia Hypochromasia Basophilic Stippling Microcytosis Macrocytosis Target Cells Tear Drop Cells VBG pH VBG pCO2 VBG pO2 VBG HCO3 VBG O2 Saturation VBG Base Excess Sodium 137 Potassium 4.3 Chloride 101 Carbon Dioxide 22 Anion Gap 18 BUN 84 H Creatinine 3.43 H Estim Creat Clear Calc 24.6 Estimated GFR 18 POC Glucose 226 H 264 H Random Glucose 242 H Calcium 6.5 L Phosphorus Magnesium Total Bilirubin 1.3 H AST 41 H ALT 15 Alkaline Phosphatase 169 H Total Protein 5.9 L Albumin 2.9 L 02/08/24 02/09/24 02/09/24 18:11 00:17 05:06 WBC RBC Hgb Hct MCV MCH MCHC RDW Plt Count MPV Immature Gran % (Auto) Neut % (Auto) Lymph % (Auto) [place] % (Auto) Eos % (Auto) Baso % (Auto) Lymph # (Auto) [place] # (Auto) Eos # (Auto) Baso # (Auto) Abs Immat Gran (auto) Absolute Neuts (auto) Absolute Nucleated RBC Nucleated RBC % (auto) Neutrophils % (Manual) Band Neutrophils % Lymphocytes % (Manual) Monocytes % (Manual) Metamyelocytes % Abs Neuts (Manual) Lymphocytes # (Manual) Monocytes # (Manual) Metamyelocytes # Nucleated RBCs Toxic Granulation Toxic Vacuolation Platelet Estimate Large Platelets Plt Morphology Comment RBC Morphology Polychromasia Hypochromasia Basophilic Stippling Microcytosis Macrocytosis Target Cells Tear Drop Cells VBG pH 7.28 L VBG pCO2 42 VBG pO2 67 VBG HCO3 20 L VBG O2 Saturation 89.0 VBG Base Excess -5.7 Sodium 136 Potassium 4.5 Chloride 100 Carbon Dioxide 20 L Anion Gap 21 H BUN 88 H Creatinine 3.63 H Estim Creat Clear Calc 23.2 Estimated GFR 17 POC Glucose 241 H Random Glucose 289 H Calcium 7.0 L D Phosphorus 4.8 H Magnesium 2.4 Total Bilirubin AST ALT Alkaline Phosphatase Total Protein Albumin 02/09/24 02/09/24 05:10 06:14 WBC 31.0 H* RBC 2.61 L Hgb 7.0 L* Hct 23.3 L MCV 89.3 D MCH 26.8 L MCHC 30.0 L RDW 23.2 H Plt Count 86 L MPV 12.3 Immature Gran % (Auto) Cancelled Neut % (Auto) Cancelled Lymph % (Auto) Cancelled [place] % (Auto) Cancelled Eos % (Auto) Cancelled Baso % (Auto) Cancelled Lymph # (Auto) Cancelled [place] # (Auto) Cancelled Eos # (Auto) Cancelled Baso # (Auto) Cancelled Abs Immat Gran (auto) Cancelled Absolute Neuts (auto) Cancelled Absolute Nucleated RBC 2.470 H Nucleated RBC % (auto) 8.0 H Neutrophils % (Manual) 84 H Band Neutrophils % 10 H Lymphocytes % (Manual) 3 L Monocytes % (Manual) 2 Metamyelocytes % 1 Abs Neuts (Manual) 29.1 H Lymphocytes # (Manual) 0.9 L Monocytes # (Manual) 0.6 Metamyelocytes # 0.3 Nucleated RBCs 17 H Toxic Granulation PRESENT Toxic Vacuolation PRESENT Platelet Estimate DECREASED Large Platelets PRESENT Plt Morphology Comment NOTED RBC Morphology NOTED Polychromasia 2+ (3-5) Hypochromasia 1+ (5-14) Basophilic Stippling 1+ (0-2) Microcytosis 1+ (5-14) Macrocytosis 1+ (5-14) Target Cells 1+ (5-14) Tear Drop Cells 1+ (0-2) VBG pH VBG pCO2 VBG pO2 VBG HCO3 VBG O2 Saturation VBG Base Excess Sodium 136 Potassium 4.5 Chloride 100 Carbon Dioxide 19 L Anion Gap 22 H BUN 98 H Creatinine 3.93 H Estim Creat Clear Calc 21.4 Estimated GFR 15 POC Glucose 278 H Random Glucose 295 H Calcium 6.8 L Phosphorus 4.8 H Magnesium 2.5 Total Bilirubin AST ALT Alkaline Phosphatase Total Protein Albumin 2.6 L Microbiology Microbiology Results: Microbiology 02/03/24 06:58 Blood - Venous Blood Culture - Final No growth after 5 days. 02/03/24 06:58 Blood - Venous Blood Culture - Final No growth after 5 days. 01/31/24 10:21 Blood - Venous Blood Culture - Final No growth after 5 days. 01/31/24 10:21 Blood - Venous Blood Culture - Final No growth after 5 days. 01/29/24 Unknown Bile Gram Stain - Final 01/29/24 Unknown Bile Routine Culture - Final No growth after 2 days 01/29/24 Unknown Bile Anaerobic Culture - Final NO GROWTH AFTER 5 DAYS 01/27/24 10:19 Blood - Venous Blood Culture - Final No growth after 5 days. 01/27/24 10:19 Blood - Venous Blood Culture - Final No growth after 5 days. 01/25/24 12:04 Pleural Fluid Gram Stain - Final 01/25/24 12:04 Pleural Fluid Routine Culture - Final No growth after 2 days 01/25/24 12:04 Pleural Fluid Anaerobic Culture - Final NO GROWTH AFTER 5 DAYS 01/23/24 16:34 Sputum - Suctioned Gram Stain - Final 01/23/24 16:34 Sputum - Suctioned Sputum Culture - Final Pseudomonas aeruginosa 01/21/24 04:03 Blood - Venous Blood Culture - Final No growth after 5 days. 01/21/24 04:03 Blood - Venous Blood Culture - Final No growth after 5 days. Progress Note: A&P Assessment and plan (1) ALEJANDRA (acute kidney injury): Status: Acute (2) Prostate cancer metastatic to bone: Status: Acute (3) Lung cancer: Status: Acute (4) Respiratory failure: Status: Acute (5) Pseudomonas pneumonia: Status: Acute (6) Postobstructive pneumonia: Status: Acute Plan Assessment: 68-year-old gentleman with underlying progressive metastatic disease with likely prostate so admitted with acute on chronic respiratory failure secondary to COVID-19, now requiring ventilatory support Plan: Neuro: Acute encephalopathy, likely uremic versus paraneoplastic. Cardiac: Continue to titrate off pressor support as tolerated. Continue amiodarone drip for recurrent episodes of SVT. Pulmonary: Acute hypoxic respiratory failure secondary to combination of progressive neoplastic disease and Pseudomonas postobstructive pneumonia now requiring ventilatory support, continue to titrate off as tolerated. Renal: Acute renal failure requiring hemodialysis support. Nephrology service care appreciated. Endo: No acute issues. GI: No acute issues. ID: Postobstructive Pseudomonas pneumonia, meropenem switched to Levaquin based on sensitivities. Heme/Onc: Progressive metastatic disease to lung/chest wall and bone. Psych: No acute issues. Miscellaneous: Overall prognosis very poor. Discussions of goals of care are on-going with the family. Prophylaxis: Pneumatic compression, famotidine Diet: Tube feeds Quality Stroke Does the patient have a stroke diagnosis?: No VTE Prior VTE?: No VTE Risk Level:: Medical - moderate - high VTE Device Contraindication: N/A - Device Ordered VTE Drug Contraindication: Treatment Not Tolerated
--- NOTE | 2024-02-09 11:43 | HO.SKINPHOTO ---
Updated skin photos 02/09/2024 Location: coccyx Category: PI Stage: unstageable (present at admission) Location Bilateral buttocks CAtegory: COVID-19 acute skin failure in the setting of vasopressor requirements traid and new foams applied Location: left upper back Category: PI Stage: MDPI Location: b/l upper back Category: COVID-19 acute skin failure in the setting of vasopressor requirements
[2024-02-09 12:14] LABS: Glucose, Whole Blood 258 mg/dL (60-115)
--- NOTE | 2024-02-09 16:02 | MHC.CM.PN ---
Pt continues care in ICU: on ventilatory and HD support: obstructed bronchus w/lung white out on imaging, multiple areas of worsening skin impairment - Family deciding on [employer] but are waiting to make a decision until after the holiday. CM to follow
[2024-02-09 17:25] LABS: Glucose, Whole Blood 252 mg/dL (60-115)
[2024-02-09] MEDS: Metoprolol Tartrate 10 MG in 0.9 % Sodium Chloride 50 ML 240 MG IV ×2 (18:00→19:46)
[2024-02-09 18:21] LABS: Venous Blood Gas Refer to POC result
[2024-02-09] MEDS: Vasopressin 20 UNIT/100 ML INFUS..BTL 12 UNIT IVCONT (18:21)
[2024-02-09 18:23] LABS: VBG Base Excess -7.6 mmol/L; VBG HCO3 19 mmol/L (22-26); VBG pCO2 47 mmHg; VBG pH 7.21 (7.32-7.43); VBG pO2 73 mmHg
[2024-02-09 18:33] LABS: Anion Gap 22 (12-20); Blood Urea Nitrogen 115 mg/dL (9-16); Calcium 6.9 mg/dL (8.4-10.2); Carbon Dioxide 18 mmol/L (22-29); Chloride 102 mmol/L (96-108); Creatinine Clr Calc Pharmacy 20.3; Estimated Glomerular Filt Rate 14; Glucose Random 281 mg/dL (60-115); Potassium 5.1 mmol/L (3.3-5.1); Sodium 137 mmol/L (135-145)
--- NOTE | 2024-02-09 18:35 | PC.NURSE ---
Assumed care of patient 07:00 Pt provided bath 08:35-09:00 New skin photos obtained for chart. 09:00 multidisciplinary rounds: new orders for Glucerna tube feeds 12:00 Glucerna started per orders @30 ml/hr. Advanced to @40ml at 16:00. Pt tolerating well. Pt repositioned Q2HR right and supine. Pt unable to tolerate left lung down due to impaired function. Pt desaturated SaO2 82-83%when turned to left side. 17:00 Pt repositioned, tolerated well 17:20 tele rhythm changed from SR 90s to atrial tachycardia [id number]. MD notified per MD give metoprolol prn if HR >150 for >15 min. Restart vasopressin if MAP <65. Metoprolol prn given for HR up to 160, vasopressin gtt restarted for MAP 58 medications given communicated in RN to RN report
[2024-02-09 23:59] LABS: Glucose, Whole Blood 278 mg/dL (60-115)
[2024-02-10] VITALS (60 sets, daily range): BP systolic 82–151; BP diastolic 33–65; PULSE 75–133; RESP 14–28; TEMP 34.9–38.9; O2SAT 92–96; BMI 32.1
[2024-02-10] MEDS: Chlorhexidine Gluc Oral Rinse 15 ML MOUTHWASH BUCCAL ×4 (00:06→20:52)
[2024-02-10] MEDS: Insulin Lispro 100 UNIT/ML 3 ML VIAL SUBCUT ×4 (00:07→17:55)
[2024-02-10] MEDS: 0.9 % Sodium Chloride Flush 3 ML SYRINGE IVFLUSH ×3 (00:07→15:45)
[2024-02-10] MEDS: Vasopressin 20 UNIT/100 ML INFUS..BTL 12 UNIT IVCONT ×4 (00:11→21:09)
[2024-02-10] MEDS: Albumin Human 25 % 100 ML IV (01:31)
[2024-02-10] MEDS: Amiodarone HCL 900 MG in 0.9 % Sodium Chloride 500 ML 17.27 MG IVCONT (01:31)
[2024-02-10] MEDS: Norepinephrine Bitartrate/NS 32 MG/250 ML PLAST..BAG 8.64 MG IVCONT (02:23)
[2024-02-10 05:17] LABS: VBG Base Excess -9.5 mmol/L; VBG HCO3 18 mmol/L (22-26); VBG pCO2 47 mmHg; VBG pH 7.18 (7.32-7.43); VBG pO2 63 mmHg
[2024-02-10 05:23] LABS: Venous Blood Gas Refer to POC result
[2024-02-10 05:29] LABS: Hematocrit 22.3 % (42.0-52.0); Mean Corpuscular HGB Conc 30.5 g/dl (31.0-36.0); Mean Corpuscular Hemoglobin 27.5 pg (27.0-33.0); Mean Corpuscular Volume 90.3 fL (80.0-98.0); Mean Platelet Volume 12.1 fL (9.4-12.4); PLT CLUMP 1; Red Blood Count 2.47 X10*6/uL (4.60-5.80); Red Cell Distribution Width 23.8 % (11.0-16.0)
[2024-02-10 05:30] LABS: NRBC Pct Auto 6.9 /100WBC (0.0-0.2)
[2024-02-10 05:31] LABS: Hemoglobin 6.8 g/dl (14.0-18.0); WBC ABN SCTR FOR CBC 1; White Blood Count 28.9 X10*3/uL (4.8-10.8)
[2024-02-10] MEDS: Albuterol/Iprat 2.5/0.5MG 3 ML AMPUL.NEB INHALE ×4 (05:41→20:24)
[2024-02-10 05:51] LABS: Albumin Level 3.4 g/dL (3.5-5.0); Anion Gap 28 (12-20); Band Neutrophils Percent 9 % (3-5); Blood Urea Nitrogen 121 mg/dL (9-16); Calcium 6.7 mg/dL (8.4-10.2); Carbon Dioxide 14 mmol/L (22-29); Chloride 101 mmol/L (96-108); Creatinine Clr Calc Pharmacy 18.9; Estimated Glomerular Filt Rate 13; Glucose Random 294 mg/dL (60-115); Lymphocytes Absolute Manual 0.9 X10*3/uL (1.2-4.9); Lymphocytes Percent Manual 3 % (20-40); Magnesium 2.8 mg/dL (1.6-2.6); Neutrophils Percent Manual 88 % (45-73); Nucleated Red Blood Cells 10 /100WBC (0-0); Phosphorus 7.2 mg/dL (2.7-4.5); Potassium 5.8 mmol/L (3.3-5.1); Sodium 137 mmol/L (135-145)
[2024-02-10 05:53] LABS: Basophilic Stippling 1+ (0-2) /OIF; Dohle Bodies PRESENT; Hypochromasia 1+ (5-14) /OIF; Macrocytosis 1+ (5-14) /OIF; Microcytosis 1+ (5-14) /OIF; Platelet Estimate DECREASED (NORMAL); Platelet Morphology Comment NORMAL; Polychromasia 2+ (3-5) /OIF; RBC Morphology NOTED; Schistocytes 1+ (0-2) /OIF; Target Cells 1+ (5-14) /OIF; Tear Drop Cells 1+ (0-2) /OIF; Toxic Granulation PRESENT; Toxic Vacuolation PRESENT
[2024-02-10 05:55] LABS: Platelet Count 83 X10*3/uL (160-400)
[2024-02-10] MEDS: Calcium Gluconate/NaCl,Iso-Osm 2 GM/100 ML PLAST..BAG IV ×2 (06:23→21:09)
[2024-02-10] MEDS: Famotidine/PF 20 MG/2 ML VIAL IVPUSH (08:18)
--- NOTE | 2024-02-10 10:20 | P.PNCC_ITS ---
Subjective Subjective Date of Service: 02/10/24 Critical Care Time (minutes): 35 Comment: Intubated and on ventilator support Plan to receive hemodialysis today Drop in hemoglobin, plan to received PRBC during dialysis Continues to be febrile Physical Exam 2 Vital Signs: Vital Signs: Last Vital Signs Temp 101.8 F H 02/10/24 10:00 Pulse 89 02/10/24 10:00 Resp 20 02/10/24 10:00 BP 128/38 L 02/10/24 10:00 Pulse Ox 93 02/10/24 10:00 O2 Del Method Mechanical Ventil ation 02/10/24 10:00 O2 Flow Rate 50 02/01/24 22:00 FiO2 70 02/10/24 10:00 BMI result Body Mass Index 32.1 General: In acute distress, ill appearing and tired appearing Nutritional Appearance: well nourished and overweight Eyes: appearance normal, both eyes and all related structures; Alignment and Position: alignment normal and position normal Neck: No lymphadenopathy, no thyromegaly Resp: bilateral air entry equal, decreased breath sounds left lung Cardio: Regular rate, regular rhythm; Heart sounds: S1 normal heart sound present and S2 normal heart sound present GI: soft, nontender, no guarding, no hepatosplenomegaly : bladder normal to inspection, bladder normal to palpation, no renal angle tenderness Skin: no rashes or lesions noted and elasticity normal Neuro: Sedated, no focal deficits Objective Data Labs 02/10/24 05:06 02/10/24 05:06 Labs: Laboratory Results - last 24 hr 02/09/24 02/09/24 02/09/24 12:08 17:11 18:10 WBC RBC Hgb Hct MCV MCH MCHC RDW Plt Count MPV Immature Gran % (Auto) Neut % (Auto) Lymph % (Auto) [place] % (Auto) Eos % (Auto) Baso % (Auto) Lymph # (Auto) [place] # (Auto) Eos # (Auto) Baso # (Auto) Abs Immat Gran (auto) Absolute Neuts (auto) Absolute Nucleated RBC Nucleated RBC % (auto) Neutrophils % (Manual) Band Neutrophils % Lymphocytes % (Manual) Abs Neuts (Manual) Lymphocytes # (Manual) Nucleated RBCs Toxic Granulation Toxic Vacuolation Dohle Bodies Platelet Estimate Plt Morphology Comment RBC Morphology Polychromasia Hypochromasia Basophilic Stippling Microcytosis Macrocytosis Target Cells Tear Drop Cells Schistocytes VBG pH VBG pCO2 VBG pO2 VBG HCO3 VBG O2 Saturation VBG Base Excess Sodium 137 Potassium 5.1 Chloride 102 Carbon Dioxide 18 L Anion Gap 22 H BUN 115 H Creatinine 4.16 H* Estim Creat Clear Calc 20.3 Estimated GFR 14 POC Glucose 258 H 252 H Random Glucose 281 H Calcium 6.9 L Phosphorus Magnesium Albumin Blood Type Antibody Screen Crossmatch 02/09/24 02/09/24 02/10/24 18:17 23:54 05:06 WBC 28.9 H RBC 2.47 L Hgb 6.8 L* Hct 22.3 L MCV 90.3 MCH 27.5 MCHC 30.5 L RDW 23.8 H Plt Count 83 L MPV 12.1 Immature Gran % (Auto) Cancelled Neut % (Auto) Cancelled Lymph % (Auto) Cancelled [place] % (Auto) Cancelled Eos % (Auto) Cancelled Baso % (Auto) Cancelled Lymph # (Auto) Cancelled [place] # (Auto) Cancelled Eos # (Auto) Cancelled Baso # (Auto) Cancelled Abs Immat Gran (auto) Cancelled Absolute Neuts (auto) Cancelled Absolute Nucleated RBC 1.980 H Nucleated RBC % (auto) 6.9 H Neutrophils % (Manual) 88 H Band Neutrophils % 9 H Lymphocytes % (Manual) 3 L Abs Neuts (Manual) 28.0 H Lymphocytes # (Manual) 0.9 L Nucleated RBCs 10 H Toxic Granulation PRESENT Toxic Vacuolation PRESENT Dohle Bodies PRESENT Platelet Estimate DECREASED Plt Morphology Comment NORMAL RBC Morphology NOTED Polychromasia 2+ (3-5) Hypochromasia 1+ (5-14) Basophilic Stippling 1+ (0-2) Microcytosis 1+ (5-14) Macrocytosis 1+ (5-14) Target Cells 1+ (5-14) Tear Drop Cells 1+ (0-2) Schistocytes 1+ (0-2) VBG pH 7.21 L 7.18 L* VBG pCO2 47 47 VBG pO2 73 63 VBG HCO3 19 L 18 L VBG O2 Saturation TNP 84.0 VBG Base Excess -7.6 -9.5 Sodium 137 Potassium 5.8 H Chloride 101 Carbon Dioxide 14 L Anion Gap 28 H BUN 121 H Creatinine 4.47 H* Estim Creat Clear Calc 18.9 Estimated GFR 13 POC Glucose 278 H Random Glucose 294 H Calcium 6.7 L Phosphorus 7.2 H Magnesium 2.8 H Albumin 3.4 L Blood Type Antibody Screen Crossmatch 02/10/24 06:33 WBC RBC Hgb Hct MCV MCH MCHC RDW Plt Count MPV Immature Gran % (Auto) Neut % (Auto) Lymph % (Auto) [place] % (Auto) Eos % (Auto) Baso % (Auto) Lymph # (Auto) [place] # (Auto) Eos # (Auto) Baso # (Auto) Abs Immat Gran (auto) Absolute Neuts (auto) Absolute Nucleated RBC Nucleated RBC % (auto) Neutrophils % (Manual) Band Neutrophils % Lymphocytes % (Manual) Abs Neuts (Manual) Lymphocytes # (Manual) Nucleated RBCs Toxic Granulation Toxic Vacuolation Dohle Bodies Platelet Estimate Plt Morphology Comment RBC Morphology Polychromasia Hypochromasia Basophilic Stippling Microcytosis Macrocytosis Target Cells Tear Drop Cells Schistocytes VBG pH VBG pCO2 VBG pO2 VBG HCO3 VBG O2 Saturation VBG Base Excess Sodium Potassium Chloride Carbon Dioxide Anion Gap BUN Creatinine Estim Creat Clear Calc Estimated GFR POC Glucose Random Glucose Calcium Phosphorus Magnesium Albumin Blood Type A Positive Antibody Screen NEGATIVE Crossmatch See Detail Microbiology Microbiology Results: Microbiology 02/03/24 06:58 Blood - Venous Blood Culture - Final No growth after 5 days. 02/03/24 06:58 Blood - Venous Blood Culture - Final No growth after 5 days. 01/31/24 10:21 Blood - Venous Blood Culture - Final No growth after 5 days. 01/31/24 10:21 Blood - Venous Blood Culture - Final No growth after 5 days. 01/29/24 Unknown Bile Gram Stain - Final 01/29/24 Unknown Bile Routine Culture - Final No growth after 2 days 01/29/24 Unknown Bile Anaerobic Culture - Final NO GROWTH AFTER 5 DAYS 01/27/24 10:19 Blood - Venous Blood Culture - Final No growth after 5 days. 01/27/24 10:19 Blood - Venous Blood Culture - Final No growth after 5 days. 01/25/24 12:04 Pleural Fluid Gram Stain - Final 01/25/24 12:04 Pleural Fluid Routine Culture - Final No growth after 2 days 01/25/24 12:04 Pleural Fluid Anaerobic Culture - Final NO GROWTH AFTER 5 DAYS 01/23/24 16:34 Sputum - Suctioned Gram Stain - Final 01/23/24 16:34 Sputum - Suctioned Sputum Culture - Final Pseudomonas aeruginosa 01/21/24 04:03 Blood - Venous Blood Culture - Final No growth after 5 days. 01/21/24 04:03 Blood - Venous Blood Culture - Final No growth after 5 days. Progress Note: A&P Assessment and plan (1) Non-small cell carcinoma of lung: Status: Acute (2) Lung cancer: Status: Acute (3) Acute and chronic respiratory failure with hypoxia: Status: Acute (4) Respiratory failure: Status: Acute (5) Asthma: Status: Acute (6) COPD (chronic obstructive pulmonary disease): Status: Acute (7) Prostate cancer metastatic to bone: Status: Acute (8) ALEJANDRA (acute kidney injury): Status: Acute (9) Acute renal insufficiency: Status: Acute Plan Neuro: Acute encephalopathy possibly due to metabolic encephalopathy Not on any sedation, as needed Dilaudid for analgesia Cardiac: Shock: Possibly secondary to positive pressure ventilation On Levophed for vasopressor support Episodes of SVT/NSVTs: On amiodarone drip, currently rate controlled Respiratory: Acute hypoxemic respiratory failure due to COVID 19 pneumonia and metastatic lung disease s/p left lower lobe lobectomy in August Extubated on 01/26/2024 but had to be reintubated on 01/31/2024 due to worsening respiratory failure from the lung collapse which further progressed. Bronchoscopy showed obstruction lumen from external compression leading to total left lung collapse. Continues to be needing ventilator support, chest x-ray today still showing complete left lung collapse. On PRVC mode, FiO2 70%, peep 5, tidal volume 400, rate 20. No plans for weaning trials today given high oxygen requirement. GI: not clear for feeds by speech, NPO with ice chips Possibly has stool for occult blood positive We will change famotidine to pantoprazole 40 mg IV b.i.d. Acute cholecystitis: General surgery consulted, he is a poor candidate for surgery. Status post IR cholecystostomy tube placement Renal: Acute renal failure possibly secondary to ATN from shock Currently on renal replacement therapy, plan to receive hemodialysis session today Heme: Acute blood loss anemia: Possibly secondary to GI bleed We will received 1 PRBC transfusion today We will repeat a CBC later in the evening, if hemoglobin continues to drop we will consult GI tomorrow Endocrine: Blood sugars under control Sliding scale insulin as needed Infectious disease: leukocytosis possibly secondary to acute cholecystitis, if he gets intubated are stable enough to be moved to CT we will get a CT chest abdomen and pelvis sputum cultures positive for pseudomonas Was initially on ampicillin sulbactam until 01/25/2024, received Zosyn from 01/25/2024 till 02/05/2024 and then the antibiotics was changed to meropenem; plan to switch to levofloxacin today but as he had rashes with levofloxacin in the past we will continue with meropenem for now COVID 19 pneumonia: off dexamethasone due to cholecystitis, and remdesivir. Musculoskeletal: Decubitus ulcer prevention protocol wound care consult for erythema Lines: Left IJ hemodialysis catheter Right IJ TLC Prophylaxis: Heparin, pantoprazole Quality Stroke Does the patient have a stroke diagnosis?: No VTE Prior VTE?: No VTE Risk Level:: Medical - moderate - high VTE Device Contraindication: N/A - Device Ordered VTE Drug Contraindication: Treatment Not Tolerated
[2024-02-10 11:43] LABS: Glucose, Whole Blood 277 mg/dL (60-115)
[2024-02-10] MEDS: Acetaminophen Oral Liquid 650 MG/20.3 ML SOLUTION PO ×2 (12:34→19:10)
[2024-02-10] MEDS: Meropenem 500 MG VIAL IVPUSH ×2 (12:38→20:52)
[2024-02-10] MEDS: Metoprolol Tartrate 10 MG in 0.9 % Sodium Chloride 50 ML 240 MG IV (13:22)
[2024-02-10] MEDS: Pantoprazole Sodium 40 MG/10 ML VIAL IVPUSH (15:45)
[2024-02-10 17:46] LABS: Glucose, Whole Blood 201 mg/dL (60-115)
[2024-02-10 19:22] LABS: Mean Corpuscular HGB Conc 31.6 g/dl (31.0-36.0); Mean Corpuscular Hemoglobin 28.4 pg (27.0-33.0); Mean Corpuscular Volume 89.9 fL (80.0-98.0); Red Blood Count 2.18 X10*6/uL (4.60-5.80); Red Cell Distribution Width 22.6 % (11.0-16.0); White Blood Count 21.5 X10*3/uL (4.8-10.8)
[2024-02-10] MEDS: Metoprolol Tartrate 5 MG/5 ML VIAL IVPUSH (19:43)
[2024-02-10 20:00] LABS: NRBC Pct Auto 11.8 /100WBC (0.0-0.2); Platelet Count 62 X10*3/uL (160-400)
[2024-02-10 20:03] LABS: Hemoglobin 6.2 g/dl (14.0-18.0)
[2024-02-10 20:04] LABS: Hematocrit 19.6 % (42.0-52.0)
[2024-02-10 20:26] LABS: VBG Base Excess -9.2 mmol/L; VBG HCO3 17 mmol/L (22-26); VBG pCO2 37 mmHg; VBG pH 7.25 (7.32-7.43); VBG pO2 144 mmHg
[2024-02-10 20:37] LABS: Venous Blood Gas Refer to POC result
[2024-02-10 20:49] LABS: Albumin Level 2.9 g/dL (3.5-5.0); Anion Gap 22 (12-20); Blood Urea Nitrogen 80 mg/dL (9-16); Calcium 6.8 mg/dL (8.4-10.2); Carbon Dioxide 16 mmol/L (22-29); Chloride 101 mmol/L (96-108); Creatinine Clr Calc Pharmacy 28.1; Estimated Glomerular Filt Rate 21; Glucose Random 239 mg/dL (60-115); Magnesium 2.4 mg/dL (1.6-2.6); Phosphorus 5.3 mg/dL (2.7-4.5); Potassium 4.5 mmol/L (3.3-5.1); Sodium 134 mmol/L (135-145)
[2024-02-11] VITALS (43 sets, daily range): BP systolic 97–140; BP diastolic 33–51; PULSE 81–155; RESP 16–29; TEMP 35–39.9; O2SAT 88–97; BMI 31.3
[2024-02-11 00:06] LABS: Glucose, Whole Blood 279 mg/dL (60-115)
[2024-02-11] MEDS: 0.9 % Sodium Chloride Flush 3 ML SYRINGE IVFLUSH ×3 (00:36→15:21)
[2024-02-11] MEDS: Insulin Lispro 100 UNIT/ML 3 ML VIAL SUBCUT ×4 (00:37→18:16)
[2024-02-11] MEDS: Acetaminophen Oral Liquid 650 MG/20.3 ML SOLUTION PO ×2 (00:37→07:29)
[2024-02-11] MEDS: Norepinephrine Bitartrate/NS 32 MG/250 ML PLAST..BAG 7.82 MG IVCONT (01:42)
[2024-02-11] MEDS: Albuterol/Iprat 2.5/0.5MG 3 ML AMPUL.NEB INHALE ×4 (03:11→19:47)
[2024-02-11] MEDS: Vasopressin 20 UNIT/100 ML INFUS..BTL 12 UNIT IVCONT ×3 (04:57→20:13)
[2024-02-11] MEDS: Meropenem 500 MG VIAL IVPUSH ×3 (04:57→20:13)
[2024-02-11] MEDS: Amiodarone HCL 900 MG in 0.9 % Sodium Chloride 500 ML 17.27 MG IVCONT (04:59)
[2024-02-11 05:10] LABS: VBG Base Excess -6.6 mmol/L; VBG HCO3 22 mmol/L (22-26); VBG pCO2 59 mmHg; VBG pH 7.17 (7.32-7.43); VBG pO2 68 mmHg
[2024-02-11 05:19] LABS: Venous Blood Gas Refer to POC result
[2024-02-11 05:41] LABS: Hematocrit 28.9 % (42.0-52.0); Mean Corpuscular HGB Conc 31.1 g/dl (31.0-36.0); Mean Corpuscular Hemoglobin 28.5 pg (27.0-33.0); Mean Corpuscular Volume 91.5 fL (80.0-98.0); Mean Platelet Volume 12.1 fL (9.4-12.4); NRBC Pct Auto 8.5 /100WBC (0.0-0.2); PLT CLUMP 1; Red Blood Count 3.16 X10*6/uL (4.60-5.80); Red Cell Distribution Width 22.5 % (11.0-16.0); WBC ABN SCTR FOR CBC 1; White Blood Count 25.2 X10*3/uL (4.8-10.8)
[2024-02-11 05:42] LABS: Platelet Count 78 X10*3/uL (160-400)
[2024-02-11 05:59] LABS: Albumin Level 2.9 g/dL (3.5-5.0); Anion Gap 25 (12-20); Blood Urea Nitrogen 95 mg/dL (9-16); Calcium 6.9 mg/dL (8.4-10.2); Carbon Dioxide 15 mmol/L (22-29); Chloride 99 mmol/L (96-108); Estimated Glomerular Filt Rate 18; Glucose Random 310 mg/dL (60-115); Magnesium 2.5 mg/dL (1.6-2.6); Phosphorus 6.1 mg/dL (2.7-4.5); Potassium 4.9 mmol/L (3.3-5.1); Sodium 134 mmol/L (135-145)
[2024-02-11 06:06] LABS: Band Neutrophils Percent 16 % (3-5); Lymphocytes Percent Manual 4 % (20-40); Metamyelocytes Absolute 0.5 X10*3/uL; Metamyelocytes Percent 2 %; Monocytes Absolute Manual 0.3 X10*3/uL (0.1-1.2); Monocytes Percent Manual 1 % (2-11); Myelocytes Absolute 0.3 X10*/uL; Myelocytes Percent 1 %; Neutrophils Absolute Manual 23.2 X10*3/uL (2.0-8.3); Neutrophils Percent Manual 76 % (45-73); Nucleated Red Blood Cells 11 /100WBC (0-0)
[2024-02-11 06:07] LABS: Acanthocytes 1+ (0-2) /OIF; Large Platelet PRESENT; Macrocytosis 1+ (5-14) /OIF; Microcytosis 1+ (5-14) /OIF; Platelet Estimate DECREASED (NORMAL); Platelet Morphology Comment NOTED; RBC Morphology NOTED
[2024-02-11 06:08] LABS: Basophilic Stippling 1+ (0-2) /OIF; Burr Cells 1+ (0-2) /OIF; Dohle Bodies PRESENT; Hypochromasia 1+ (5-14) /OIF; Polychromasia 3+ (>5) /OIF; Target Cells 1+ (5-14) /OIF; Tear Drop Cells 1+ (0-2) /OIF; Toxic Granulation PRESENT
[2024-02-11] MEDS: Pantoprazole Sodium 40 MG/10 ML VIAL IVPUSH ×2 (06:17→16:31)
[2024-02-11] MEDS: Calcium Gluconate/NaCl,Iso-Osm 2 GM/100 ML PLAST..BAG IV ×2 (07:30→20:38)
[2024-02-11] MEDS: Chlorhexidine Gluc Oral Rinse 15 ML MOUTHWASH BUCCAL ×3 (07:30→20:13)
[2024-02-11] MEDS: Albumin Human 25 % 100 ML IV ×3 (07:30→20:13)
--- NOTE | 2024-02-11 09:44 | P.PNCC_ITS ---
Subjective Subjective Date of Service: 02/11/24 Interval History: 68-year-old gentleman with underlying asthma/COPD overlap syndrome, lung cancer status post lobectomy, and prostate cancer now with metastasis to bone and chest admitted on 01/21/2024 with worsening dyspnea initially requiring high-flow nasal cannula, but with worsening respiratory status thus requiring noninvasive positive pressure ventilatory support, also noted to be positive for COVID-19. Patient admitted to intensive care unit. Hospital course significant for progressive respiratory distress and pulmonary aspiration requiring intubation on 01/23/2024. CT chest demonstrate progression of underlying metastatic disease. Required intubation on 01/23/2024 for airway protection on background of acute hypoxic respiratory failure. Edit 01/26/2024 and required re- intubation on 01/31/2024 secondary to hypoxia likely aspiration related. Hospital course further complicated by multiorgan failure including renal failure requiring dialysis, postobstructive Pseudomonas pneumonia, encephalopathy, AFib with RVR requiring amiodarone load, and thrombocytopenia. No events overnight. Critical Care Time (minutes): 60 Physical Exam 2 Vital Signs: Vital Signs: Last Vital Signs Temp 103.5 F H 02/11/24 09:00 Pulse 96 02/11/24 09:00 Resp 19 02/11/24 09:00 BP 103/36 L 02/11/24 09:00 Pulse Ox 91 L 02/11/24 09:00 O2 Del Method Mechanical Ventil ation 02/11/24 09:00 O2 Flow Rate 50 02/01/24 22:00 FiO2 70 02/11/24 09:00 BMI result Body Mass Index 31.3 Const: General: no acute distress and ill appearing Nutritional Appearance: Edematous Eyes: Sclerae: sclerae normal Neck: Neck: Yes no lymphadenopathy, Yes trachea midline and Yes supple Resp: Auscultation: crackles (Bilateral) Cardio: Rate: regular rate Rhythm: regular rhythm Heart sounds: no gallops, no murmurs and no rubs GI: Palpation (GI): Soft to palpation and Other GI palpation findings present ( Nontender) Auscultation: normal bowel sounds Extrem: General: No clubbing, No cyanosis and Yes edema (2+ bilateral) Objective Data Labs 02/11/24 04:57 02/11/24 04:57 Labs: Laboratory Results - last 24 hr 02/10/24 02/10/24 02/10/24 06:33 11:34 17:41 WBC RBC Hgb Hct MCV MCH MCHC RDW Plt Count MPV Immature Gran % (Auto) Neut % (Auto) Lymph % (Auto) [place] % (Auto) Eos % (Auto) Baso % (Auto) Lymph # (Auto) [place] # (Auto) Eos # (Auto) Baso # (Auto) Abs Immat Gran (auto) Absolute Neuts (auto) Absolute Nucleated RBC Nucleated RBC % (auto) Neutrophils % (Manual) Band Neutrophils % Lymphocytes % (Manual) Monocytes % (Manual) Metamyelocytes % Myelocytes % Abs Neuts (Manual) Lymphocytes # (Manual) Monocytes # (Manual) Metamyelocytes # Myelocytes # Nucleated RBCs Toxic Granulation Dohle Bodies Platelet Estimate Large Platelets Plt Morphology Comment RBC Morphology Polychromasia Hypochromasia Basophilic Stippling Microcytosis Macrocytosis Target Cells Tear Drop Cells [place] Cells Acanthocytes (Spur) VBG pH VBG pCO2 VBG pO2 VBG HCO3 VBG O2 Saturation VBG Base Excess Sodium Potassium Chloride Carbon Dioxide Anion Gap BUN Creatinine Estim Creat Clear Calc Estimated GFR POC Glucose 277 H 201 H Random Glucose Calcium Phosphorus Magnesium Albumin Blood Type A Positive Antibody Screen NEGATIVE Crossmatch See Detail 02/10/24 02/10/24 02/10/24 18:46 20:14 20:21 WBC 21.5 H RBC 2.18 L Hgb 6.2 L* Hct 19.6 L* MCV 89.9 MCH 28.4 MCHC 31.6 RDW 22.6 H Plt Count 62 L D MPV 13.0 H Immature Gran % (Auto) Neut % (Auto) Lymph % (Auto) [place] % (Auto) Eos % (Auto) Baso % (Auto) Lymph # (Auto) [place] # (Auto) Eos # (Auto) Baso # (Auto) Abs Immat Gran (auto) Absolute Neuts (auto) Absolute Nucleated RBC 2.530 H Nucleated RBC % (auto) 11.8 H Neutrophils % (Manual) Band Neutrophils % Lymphocytes % (Manual) Monocytes % (Manual) Metamyelocytes % Myelocytes % Abs Neuts (Manual) Lymphocytes # (Manual) Monocytes # (Manual) Metamyelocytes # Myelocytes # Nucleated RBCs Toxic Granulation Dohle Bodies Platelet Estimate Large Platelets Plt Morphology Comment RBC Morphology Polychromasia Hypochromasia Basophilic Stippling Microcytosis Macrocytosis Target Cells Tear Drop Cells [place] Cells Acanthocytes (Spur) VBG pH 7.25 L VBG pCO2 37 VBG pO2 144 VBG HCO3 17 L VBG O2 Saturation TNP VBG Base Excess -9.2 Sodium 134 L Potassium 4.5 D Chloride 101 Carbon Dioxide 16 L Anion Gap 22 H BUN 80 H Creatinine 3.00 H Estim Creat Clear Calc 28.1 Estimated GFR 21 POC Glucose Random Glucose 239 H Calcium 6.8 L Phosphorus 5.3 H Magnesium 2.4 Albumin 2.9 L Blood Type Antibody Screen Crossmatch 02/10/24 02/11/24 02/11/24 23:59 04:57 04:59 WBC 25.2 H RBC 3.16 L D Hgb 9.0 L D Hct 28.9 L D MCV 91.5 MCH 28.5 MCHC 31.1 RDW 22.5 H Plt Count 78 L D MPV 12.1 Immature Gran % (Auto) Cancelled Neut % (Auto) Cancelled Lymph % (Auto) Cancelled [place] % (Auto) Cancelled Eos % (Auto) Cancelled Baso % (Auto) Cancelled Lymph # (Auto) Cancelled [place] # (Auto) Cancelled Eos # (Auto) Cancelled Baso # (Auto) Cancelled Abs Immat Gran (auto) Cancelled Absolute Neuts (auto) Cancelled Absolute Nucleated RBC 2.130 H Nucleated RBC % (auto) 8.5 H Neutrophils % (Manual) 76 H Band Neutrophils % 16 H Lymphocytes % (Manual) 4 L Monocytes % (Manual) 1 L Metamyelocytes % 2 Myelocytes % 1 Abs Neuts (Manual) 23.2 H Lymphocytes # (Manual) 1.0 L Monocytes # (Manual) 0.3 Metamyelocytes # 0.5 Myelocytes # 0.3 Nucleated RBCs 11 H Toxic Granulation PRESENT Dohle Bodies PRESENT Platelet Estimate DECREASED Large Platelets PRESENT Plt Morphology Comment NOTED RBC Morphology NOTED Polychromasia 3+ (>5) Hypochromasia 1+ (5-14) Basophilic Stippling 1+ (0-2) Microcytosis 1+ (5-14) Macrocytosis 1+ (5-14) Target Cells 1+ (5-14) Tear Drop Cells 1+ (0-2) [place] Cells 1+ (0-2) Acanthocytes (Spur) 1+ (0-2) VBG pH 7.17 L* VBG pCO2 59 VBG pO2 68 VBG HCO3 22 VBG O2 Saturation 89.0 VBG Base Excess -6.6 Sodium 134 L Potassium 4.9 Chloride 99 Carbon Dioxide 15 L Anion Gap 25 H BUN 95 H Creatinine 3.37 H Estim Creat Clear Calc 25.0 Estimated GFR 18 POC Glucose 279 H Random Glucose 310 H Calcium 6.9 L Phosphorus 6.1 H Magnesium 2.5 Albumin 2.9 L Blood Type Antibody Screen Crossmatch Microbiology Microbiology Results: Microbiology 02/03/24 06:58 Blood - Venous Blood Culture - Final No growth after 5 days. 02/03/24 06:58 Blood - Venous Blood Culture - Final No growth after 5 days. 01/31/24 10:21 Blood - Venous Blood Culture - Final No growth after 5 days. 01/31/24 10:21 Blood - Venous Blood Culture - Final No growth after 5 days. 01/29/24 Unknown Bile Gram Stain - Final 01/29/24 Unknown Bile Routine Culture - Final No growth after 2 days 01/29/24 Unknown Bile Anaerobic Culture - Final NO GROWTH AFTER 5 DAYS 01/27/24 10:19 Blood - Venous Blood Culture - Final No growth after 5 days. 01/27/24 10:19 Blood - Venous Blood Culture - Final No growth after 5 days. 01/25/24 12:04 Pleural Fluid Gram Stain - Final 01/25/24 12:04 Pleural Fluid Routine Culture - Final No growth after 2 days 01/25/24 12:04 Pleural Fluid Anaerobic Culture - Final NO GROWTH AFTER 5 DAYS 01/23/24 16:34 Sputum - Suctioned Gram Stain - Final 01/23/24 16:34 Sputum - Suctioned Sputum Culture - Final Pseudomonas aeruginosa 01/21/24 04:03 Blood - Venous Blood Culture - Final No growth after 5 days. 01/21/24 04:03 Blood - Venous Blood Culture - Final No growth after 5 days. Progress Note: A&P Assessment and plan (1) ALEJANDRA (acute kidney injury): Status: Acute (2) Non-small cell carcinoma of lung: Status: Acute (3) Prostate cancer metastatic to bone: Status: Acute (4) Acute encephalopathy: Status: Acute (5) Respiratory failure: Status: Acute (6) COPD (chronic obstructive pulmonary disease): Status: Acute Plan Assessment: 68-year-old gentleman with underlying progressive metastatic disease with likely prostate so admitted with acute on chronic respiratory failure secondary to COVID-19, now with slow progressive decline secondary to underlying malignancy despite essentially maximum support Plan: Neuro: Acute encephalopathy, likely uremic versus paraneoplastic. Cardiac: Continue to titrate off pressor support as tolerated. Continue amiodarone drip for recurrent episodes of SVT. Pulmonary: Acute hypoxic respiratory failure secondary to combination of progressive neoplastic disease and Pseudomonas postobstructive pneumonia now requiring ventilatory support, continue to titrate off as tolerated. Renal: Progressive acute renal failure despite hemodialysis support. Nephrology service care appreciated. Endo: No acute issues. GI: No acute issues. ID: Postobstructive Pseudomonas pneumonia, continue Levaquin. Heme/Onc: Progressive metastatic disease to lung/chest wall and bone. Psych: No acute issues. Miscellaneous: Overall prognosis very poor. Discussions of goals of care are on-going with the family. Prophylaxis: Pneumatic compression, famotidine Diet: Tube feeds Quality Stroke Does the patient have a stroke diagnosis?: No VTE Prior VTE?: No VTE Risk Level:: Medical - moderate - high VTE Device Contraindication: N/A - Device Ordered VTE Drug Contraindication: Treatment Not Tolerated
--- NOTE | 2024-02-11 10:12 | MHC.CLN ---
F/U PT REMAINS INTUBATED, NO PROPOFOL DISCUSSED AT ROUNDS WITH MD-PLAN IS PENDING DUSTLESS OPERATOR RECEIVING GLUCERNA AT 80 ML PER HOUR WITH FREE WATER FLUSHES 120 ML Q 8 HOURS PROVIDES 1920 KCALS (24.6 KCALS/KG IBW); 80 G PROTEIN (1 /KG IBW); 1973 ML TOTAL FREE WATER AND FLUSHES (25.3 ML/KG IBW) FOLLOWING WITH TEAM AND WILL PROVIDE SUPPORT EDELMIRA MOHAMUD D/C TF IF PT TRANSITIONS TO DUSTLESS OPERATOR
--- NOTE | 2024-02-11 11:08 | HO.SKINPHOTO ---
Location: Category: Stage: Length: Width: Depth: cm Location: Category: Stage: Length: Width: Depth: cm Location: Category: Stage: Length: Width: Depth: cm Location: Category: Stage: Length: Width: Depth: cm Location: Category: Stage: Length: Width: Depth: cm Location: Category: Stage: Length: Width: Depth: cm
[2024-02-11 11:52] LABS: Glucose, Whole Blood 236 mg/dL (60-115)
--- NOTE | 2024-02-11 13:00 | P.PNNP_ITS ---
Subjective Subjective Date of Service: 02/11/24 Interval history: Events noted. Had dialysis yesterday. Physical Exam 2 Vital Signs: Vital Signs: Last Vital Signs Temp 102.4 F H 02/11/24 12:00 Pulse 88 02/11/24 12:00 Resp 18 02/11/24 12:00 BP 132/40 L 02/11/24 12:00 Pulse Ox 93 02/11/24 12:00 O2 Del Method Mechanical Ventil ation 02/11/24 12:00 O2 Flow Rate 50 02/01/24 22:00 FiO2 75 02/11/24 12:00 BMI result Body Mass Index 31.3 Objective Data Labs 02/11/24 04:57 02/11/24 04:57 Labs: Laboratory Results - last 24 hr 02/10/24 02/10/24 02/10/24 06:33 17:41 18:46 WBC 21.5 H RBC 2.18 L Hgb 6.2 L* Hct 19.6 L* MCV 89.9 MCH 28.4 MCHC 31.6 RDW 22.6 H Plt Count 62 L D MPV 13.0 H Immature Gran % (Auto) Neut % (Auto) Lymph % (Auto) [place] % (Auto) Eos % (Auto) Baso % (Auto) Lymph # (Auto) [place] # (Auto) Eos # (Auto) Baso # (Auto) Abs Immat Gran (auto) Absolute Neuts (auto) Absolute Nucleated RBC 2.530 H Nucleated RBC % (auto) 11.8 H Neutrophils % (Manual) Band Neutrophils % Lymphocytes % (Manual) Monocytes % (Manual) Metamyelocytes % Myelocytes % Abs Neuts (Manual) Lymphocytes # (Manual) Monocytes # (Manual) Metamyelocytes # Myelocytes # Nucleated RBCs Toxic Granulation Dohle Bodies Platelet Estimate Large Platelets Plt Morphology Comment RBC Morphology Polychromasia Hypochromasia Basophilic Stippling Microcytosis Macrocytosis Target Cells Tear Drop Cells Carmen Cells Acanthocytes (Spur) VBG pH VBG pCO2 VBG pO2 VBG HCO3 VBG O2 Saturation VBG Base Excess Sodium Potassium Chloride Carbon Dioxide Anion Gap BUN Creatinine Estim Creat Clear Calc Estimated GFR POC Glucose 201 H Random Glucose Calcium Phosphorus Magnesium Albumin Blood Type A Positive Antibody Screen NEGATIVE Crossmatch See Detail 02/10/24 02/10/24 02/10/24 20:14 20:21 23:59 WBC RBC Hgb Hct MCV MCH MCHC RDW Plt Count MPV Immature Gran % (Auto) Neut % (Auto) Lymph % (Auto) [place] % (Auto) Eos % (Auto) Baso % (Auto) Lymph # (Auto) [place] # (Auto) Eos # (Auto) Baso # (Auto) Abs Immat Gran (auto) Absolute Neuts (auto) Absolute Nucleated RBC Nucleated RBC % (auto) Neutrophils % (Manual) Band Neutrophils % Lymphocytes % (Manual) Monocytes % (Manual) Metamyelocytes % Myelocytes % Abs Neuts (Manual) Lymphocytes # (Manual) Monocytes # (Manual) Metamyelocytes # Myelocytes # Nucleated RBCs Toxic Granulation Dohle Bodies Platelet Estimate Large Platelets Plt Morphology Comment RBC Morphology Polychromasia Hypochromasia Basophilic Stippling Microcytosis Macrocytosis Target Cells Tear Drop Cells Carmen Cells Acanthocytes (Spur) VBG pH 7.25 L VBG pCO2 37 VBG pO2 144 VBG HCO3 17 L VBG O2 Saturation TNP VBG Base Excess -9.2 Sodium 134 L Potassium 4.5 D Chloride 101 Carbon Dioxide 16 L Anion Gap 22 H BUN 80 H Creatinine 3.00 H Estim Creat Clear Calc 28.1 Estimated GFR 21 POC Glucose 279 H Random Glucose 239 H Calcium 6.8 L Phosphorus 5.3 H Magnesium 2.4 Albumin 2.9 L Blood Type Antibody Screen Crossmatch 02/11/24 02/11/24 02/11/24 04:57 04:59 11:49 WBC 25.2 H RBC 3.16 L D Hgb 9.0 L D Hct 28.9 L D MCV 91.5 MCH 28.5 MCHC 31.1 RDW 22.5 H Plt Count 78 L D MPV 12.1 Immature Gran % (Auto) Cancelled Neut % (Auto) Cancelled Lymph % (Auto) Cancelled [place] % (Auto) Cancelled Eos % (Auto) Cancelled Baso % (Auto) Cancelled Lymph # (Auto) Cancelled [place] # (Auto) Cancelled Eos # (Auto) Cancelled Baso # (Auto) Cancelled Abs Immat Gran (auto) Cancelled Absolute Neuts (auto) Cancelled Absolute Nucleated RBC 2.130 H Nucleated RBC % (auto) 8.5 H Neutrophils % (Manual) 76 H Band Neutrophils % 16 H Lymphocytes % (Manual) 4 L Monocytes % (Manual) 1 L Metamyelocytes % 2 Myelocytes % 1 Abs Neuts (Manual) 23.2 H Lymphocytes # (Manual) 1.0 L Monocytes # (Manual) 0.3 Metamyelocytes # 0.5 Myelocytes # 0.3 Nucleated RBCs 11 H Toxic Granulation PRESENT Dohle Bodies PRESENT Platelet Estimate DECREASED Large Platelets PRESENT Plt Morphology Comment NOTED RBC Morphology NOTED Polychromasia 3+ (>5) Hypochromasia 1+ (5-14) Basophilic Stippling 1+ (0-2) Microcytosis 1+ (5-14) Macrocytosis 1+ (5-14) Target Cells 1+ (5-14) Tear Drop Cells 1+ (0-2) [place] Cells 1+ (0-2) Acanthocytes (Spur) 1+ (0-2) VBG pH 7.17 L* VBG pCO2 59 VBG pO2 68 VBG HCO3 22 VBG O2 Saturation 89.0 VBG Base Excess -6.6 Sodium 134 L Potassium 4.9 Chloride 99 Carbon Dioxide 15 L Anion Gap 25 H BUN 95 H Creatinine 3.37 H Estim Creat Clear Calc 25.0 Estimated GFR 18 POC Glucose 236 H Random Glucose 310 H Calcium 6.9 L Phosphorus 6.1 H Magnesium 2.5 Albumin 2.9 L Blood Type Antibody Screen Crossmatch Microbiology Microbiology Results: Microbiology 02/03/24 06:58 Blood - Venous Blood Culture - Final No growth after 5 days. 02/03/24 06:58 Blood - Venous Blood Culture - Final No growth after 5 days. 01/31/24 10:21 Blood - Venous Blood Culture - Final No growth after 5 days. 01/31/24 10:21 Blood - Venous Blood Culture - Final No growth after 5 days. 01/29/24 Unknown Bile Gram Stain - Final 01/29/24 Unknown Bile Routine Culture - Final No growth after 2 days 01/29/24 Unknown Bile Anaerobic Culture - Final NO GROWTH AFTER 5 DAYS 01/27/24 10:19 Blood - Venous Blood Culture - Final No growth after 5 days. 01/27/24 10:19 Blood - Venous Blood Culture - Final No growth after 5 days. 01/25/24 12:04 Pleural Fluid Gram Stain - Final 01/25/24 12:04 Pleural Fluid Routine Culture - Final No growth after 2 days 01/25/24 12:04 Pleural Fluid Anaerobic Culture - Final NO GROWTH AFTER 5 DAYS 01/23/24 16:34 Sputum - Suctioned Gram Stain - Final 01/23/24 16:34 Sputum - Suctioned Sputum Culture - Final Pseudomonas aeruginosa 01/21/24 04:03 Blood - Venous Blood Culture - Final No growth after 5 days. 01/21/24 04:03 Blood - Venous Blood Culture - Final No growth after 5 days. Procedures Date of Service Date of Service: 02/11/24 Assessment & Plan Assessment and plan (1) ALEJANDRA (acute kidney injury): Status: Acute (2) Metastatic malignant neoplasm to prostate: Status: Acute (3) COVID-19: Status: Acute (4) Acute and chronic respiratory failure with hypoxia: Status: Acute Plan ALEJANDRA likely multifactorial, related to hypoperfusion from ongonig hemodynamic instability, vanco toxicity may also be playing role Plan for HD tomorrow, Avoid nephrotoxins continue regular electrolyte, renal function studies and blood pressure monitoring will continue to follow Time Spent With Patient Time: Total time managing care of this patient today ____ minutes. Progress Note: Quality Stroke Does the patient have a stroke diagnosis?: No
--- NOTE | 2024-02-11 14:58 | MHC.CM.PN ---
Pt continues on ventilatory support: poor prognosis: MD has spoken with family regarding ? DRY PAN FEEDER - no determination has been made at this time. CM to follow
[2024-02-11 18:15] LABS: Glucose, Whole Blood 302 mg/dL (60-115)
[2024-02-11 20:21] LABS: Albumin Level 3.1 g/dL (3.5-5.0); Anion Gap 22 (12-20); Blood Urea Nitrogen 101 mg/dL (9-16); Calcium 6.7 mg/dL (8.4-10.2); Carbon Dioxide 15 mmol/L (22-29); Chloride 99 mmol/L (96-108); Creatinine Clr Calc Pharmacy 22.9; Estimated Glomerular Filt Rate 17; Glucose Random 313 mg/dL (60-115); Magnesium 2.6 mg/dL (1.6-2.6); Phosphorus 7.9 mg/dL (2.7-4.5); Potassium 5.3 mmol/L (3.3-5.1); Sodium 131 mmol/L (135-145)
[2024-02-11 20:22] LABS: Hematocrit 27.8 % (42.0-52.0); Hemoglobin 8.7 g/dl (14.0-18.0); Mean Corpuscular HGB Conc 31.3 g/dl (31.0-36.0); Mean Corpuscular Hemoglobin 28.9 pg (27.0-33.0); Mean Corpuscular Volume 92.4 fL (80.0-98.0); Mean Platelet Volume 12.3 fL (9.4-12.4); Red Blood Count 3.01 X10*6/uL (4.60-5.80); Red Cell Distribution Width 22.8 % (11.0-16.0)
[2024-02-11] MEDS: Sodium Bicarbonate 8.4% 50 MEQ/50 ML SYRINGE IVPUSH (20:38)
[2024-02-11 20:58] LABS: NRBC Pct Auto 7.5 /100WBC (0.0-0.2); Platelet Count 78 X10*3/uL (160-400); WBC ABN SCTR FOR CBC 1
[2024-02-11 21:14] LABS: Band Neutrophils Percent 5 % (3-5); Basophils Percent Manual 1 % (0-2); Lymphocytes Percent Manual 7 % (20-40); Monocytes Percent Manual 3 % (2-11); Neutrophils Percent Manual 84 % (45-73); Nucleated Red Blood Cells 10 /100WBC (0-0)
[2024-02-11 21:15] LABS: Burr Cells 3+ (>5) /OIF; RBC Morphology NOTED
[2024-02-11 21:16] LABS: Hypochromasia 1+ (5-14) /OIF; Tear Drop Cells 1+ (0-2) /OIF
[2024-02-11 21:17] LABS: Dohle Bodies PRESENT; Polychromasia 1+ (0-2) /OIF; Toxic Granulation PRESENT; Toxic Vacuolation PRESENT
[2024-02-11 21:22] LABS: Macrocytosis 1+ (5-14) /OIF; Microcytosis 1+ (5-14) /OIF; Platelet Estimate DECREASED (NORMAL); Platelet Morphology Comment NORMAL
[2024-02-11 21:26] LABS: Basophils Abs Manual 0.2 X10*3/uL (0.0-0.2); Lymphocytes Absolute Manual 1.6 X10*3/uL (1.2-4.9); Monocytes Absolute Manual 0.7 X10*3/uL (0.1-1.2); Neutrophils Absolute Manual 19.8 X10*3/uL (2.0-8.3); White Blood Count 22.2 X10*3/uL (4.8-10.8)
[2024-02-12] VITALS (42 sets, daily range): BP systolic 86–129; BP diastolic 32–49; PULSE 49–137; RESP 20–26; TEMP 35–38; O2SAT 86–92; BMI 33.7
[2024-02-12] MEDS: Insulin Lispro 100 UNIT/ML 3 ML VIAL SUBCUT ×2 (00:12→05:44)
[2024-02-12] MEDS: Sodium Bicarbonate 8.4% 50 MEQ/50 ML SYRINGE IVPUSH (00:12)
[2024-02-12] MEDS: 0.9 % Sodium Chloride Flush 3 ML SYRINGE IVFLUSH (00:13)
[2024-02-12 00:15] LABS: Glucose, Whole Blood 285 mg/dL (60-115)
[2024-02-12] MEDS: Norepinephrine Bitartrate/NS 32 MG/250 ML PLAST..BAG 9.47 MG IVCONT (01:44)
[2024-02-12] MEDS: Albumin Human 25 % 100 ML IV (01:45)
[2024-02-12] MEDS: Albuterol/Iprat 2.5/0.5MG 3 ML AMPUL.NEB INHALE ×2 (03:35→08:07)
[2024-02-12] MEDS: Vasopressin 20 UNIT/100 ML INFUS..BTL 12 UNIT IVCONT (04:19)
[2024-02-12] MEDS: Meropenem 500 MG VIAL IVPUSH (04:21)
[2024-02-12] MEDS: Amiodarone HCL 900 MG in 0.9 % Sodium Chloride 500 ML 17.27 MG IVCONT (04:21)
[2024-02-12 05:29] LABS: VBG Base Excess -10.1 mmol/L; VBG HCO3 19 mmol/L (22-26); VBG pCO2 58 mmHg; VBG pH 7.11 (7.32-7.43); VBG pO2 61 mmHg
[2024-02-12 05:30] LABS: Venous Blood Gas Refer to POC result
[2024-02-12 05:44] LABS: Glucose, Whole Blood 257 mg/dL (60-115)
[2024-02-12] MEDS: Pantoprazole Sodium 40 MG/10 ML VIAL IVPUSH (05:44)
[2024-02-12 06:13] LABS: Hematocrit 26.4 % (42.0-52.0); Hemoglobin 8.2 g/dl (14.0-18.0); Mean Corpuscular HGB Conc 31.1 g/dl (31.0-36.0); Mean Corpuscular Hemoglobin 28.7 pg (27.0-33.0); Mean Corpuscular Volume 92.3 fL (80.0-98.0); Mean Platelet Volume 13.1 fL (9.4-12.4); NRBC Pct Auto 13.1 /100WBC (0.0-0.2); PLT CLUMP 1; Red Blood Count 2.86 X10*6/uL (4.60-5.80); Red Cell Distribution Width 22.8 % (11.0-16.0); WBC ABN SCTR FOR CBC 1
[2024-02-12 06:14] LABS: White Blood Count 16.2 X10*3/uL (4.8-10.8)
[2024-02-12 06:25] LABS: Alanine Aminotransferase 19 U/L (0-40); Albumin Level 3.4 g/dL (3.5-5.0); Alkaline Phosphatase 237 U/L (39-117); Anion Gap 26 (12-20); Aspartate Amino Transferase 45 U/L (5-37); Bilirubin Total 2.6 mg/dL (0.0-1.0); Blood Urea Nitrogen 108 mg/dL (9-16); Calcium 7.1 mg/dL (8.4-10.2); Carbon Dioxide 15 mmol/L (22-29); Chloride 96 mmol/L (96-108); Creatinine Clr Calc Pharmacy 23.6; Estimated Glomerular Filt Rate 17; Glucose Random 264 mg/dL (60-115); Magnesium 2.6 mg/dL (1.6-2.6); Phosphorus 7.5 mg/dL (2.7-4.5); Potassium 5.1 mmol/L (3.3-5.1); Sodium 132 mmol/L (135-145); Total Protein 6.1 g/dL (6.5-8.0)
[2024-02-12 06:35] LABS: Atypical Lymph Absolute Manual 0.2 x10*3/uL; Atypical Lymphs Percent Manual 1 % (0-6); Band Neutrophils Percent 22 % (3-5); Lymphocytes Percent Manual 6 % (20-40); Macrocytosis 1+ (5-14) /OIF; Metamyelocytes Absolute 0.3 X10*3/uL; Metamyelocytes Percent 2 %; Microcytosis 1+ (5-14) /OIF; Monocytes Absolute Manual 0.3 X10*3/uL (0.1-1.2); Monocytes Percent Manual 2 % (2-11); Neutrophils Absolute Manual 14.4 X10*3/uL (2.0-8.3); Neutrophils Percent Manual 67 % (45-73); Nucleated Red Blood Cells 7 /100WBC (0-0); RBC Morphology NOTED
[2024-02-12 06:36] LABS: Acanthocytes 1+ (0-2) /OIF; Ovalocytes 1+ (5-14) /OIF; Platelet Estimate DECREASED (NORMAL); Platelet Morphology Comment NORMAL
[2024-02-12 06:37] LABS: Basophilic Stippling 1+ (0-2) /OIF; Burr Cells 3+ (>5) /OIF; Dohle Bodies PRESENT; Hypochromasia 1+ (5-14) /OIF; Pappenheimer Bodies PRESENT; Polychromasia 3+ (>5) /OIF; Schistocytes 1+ (0-2) /OIF; Target Cells 1+ (5-14) /OIF; Tear Drop Cells 1+ (0-2) /OIF; Toxic Granulation PRESENT; Toxic Vacuolation PRESENT
[2024-02-12 06:38] LABS: Platelet Count 62 X10*3/uL (160-400)
[2024-02-12] MEDS: Chlorhexidine Gluc Oral Rinse 15 ML MOUTHWASH BUCCAL (09:52)
--- NOTE | 2024-02-12 09:55 | MHC.CLN ---
F/U PT REMAINS INTUBATED DISCUSSED AT ROUNDS WITH MD-PLAN CONTINUES PENDING DRAINAGE DESIGN COORDINATOR; POOR PROGNOSIS RECEIVING GLUCERNA AT 80 ML PER HOUR WITH FREE WATER FLUSHES 120 ML Q 8 HOURS PROVIDES 1920 KCALS (24.6 KCALS/KG IBW); 80 G PROTEIN (1 /KG IBW); 1973 ML TOTAL FREE WATER AND FLUSHES (25.3 ML/KG IBW) FOLLOWING WITH TEAM AND WILL PROVIDE SUPPORT EDELMIRA MOHAMUD D/C TF IF PT TRANSITIONS TO DRAINAGE DESIGN COORDINATOR
--- NOTE | 2024-02-12 11:04 | P.PNCC_ITS ---
Subjective Subjective Date of Service: 02/12/24 Interval History: 68-year-old gentleman with underlying asthma/COPD overlap syndrome, lung cancer status post lobectomy, and prostate cancer now with metastasis to bone and chest admitted on 01/21/2024 with worsening dyspnea initially requiring high-flow nasal cannula, but with worsening respiratory status thus requiring noninvasive positive pressure ventilatory support, also noted to be positive for COVID-19. Patient admitted to intensive care unit. Hospital course significant for progressive respiratory distress and pulmonary aspiration requiring intubation on 01/23/2024. CT chest demonstrate progression of underlying metastatic disease. Required intubation on 01/23/2024 for airway protection on background of acute hypoxic respiratory failure. Edit 01/26/2024 and required re- intubation on 01/31/2024 secondary to hypoxia likely aspiration related. Hospital course further complicated by multiorgan failure including renal failure requiring dialysis, postobstructive Pseudomonas pneumonia, encephalopathy, AFib with RVR requiring amiodarone load, and thrombocytopenia. No events overnight. Continues with slow decline. Critical Care Time (minutes): 60 Physical Exam 2 Vital Signs: Vital Signs: Last Vital Signs Temp 100.2 F 02/12/24 10:00 Pulse 91 02/12/24 10:26 Resp 20 02/12/24 10:00 BP 116/36 L 02/12/24 10:26 Pulse Ox 88 L 02/12/24 10:00 O2 Del Method Mechanical Ventil ation 02/12/24 10:00 O2 Flow Rate 50 02/01/24 22:00 FiO2 100 02/12/24 10:48 BMI result Body Mass Index 33.7 Const: General: no acute distress and ill appearing Nutritional Appearance: Edematous Eyes: EOM: EOMs intact bilaterally Neck: Neck: Yes no lymphadenopathy, Yes trachea midline and Yes supple Resp: Auscultation: crackles (Bilateral) Cardio: Rate: regular rate Rhythm: regular rhythm Heart sounds: no gallops, no murmurs and no rubs GI: Palpation (GI): Soft to palpation and Other GI palpation findings present ( Nontender) Auscultation: normal bowel sounds Extrem: General: No clubbing, No cyanosis and Yes edema (3+ bilateral) Objective Data Labs 02/12/24 05:25 02/12/24 05:25 Labs: Laboratory Results - last 24 hr 02/11/24 02/11/24 02/11/24 11:49 18:11 19:36 WBC 22.2 H RBC 3.01 L Hgb 8.7 L Hct 27.8 L MCV 92.4 MCH 28.9 MCHC 31.3 RDW 22.8 H Plt Count 78 L MPV 12.3 Immature Gran % (Auto) Cancelled Neut % (Auto) Cancelled Lymph % (Auto) Cancelled [place] % (Auto) Cancelled Eos % (Auto) Cancelled Baso % (Auto) Cancelled Lymph # (Auto) Cancelled [place] # (Auto) Cancelled Eos # (Auto) Cancelled Baso # (Auto) Cancelled Abs Immat Gran (auto) Cancelled Absolute Neuts (auto) Cancelled Absolute Nucleated RBC 1.670 H Nucleated RBC % (auto) 7.5 H Neutrophils % (Manual) 84 H Band Neutrophils % 5 Lymphocytes % (Manual) 7 L Atypical Lymphs % (Man) Monocytes % (Manual) 3 Basophils % (Manual) 1 Metamyelocytes % Abs Neuts (Manual) 19.8 H Lymphocytes # (Manual) 1.6 Atyp Lymphs # (Manual) Monocytes # (Manual) 0.7 Basophils # (Manual) 0.2 Metamyelocytes # Nucleated RBCs 10 H Toxic Granulation PRESENT Toxic Vacuolation PRESENT Dohle Bodies PRESENT Platelet Estimate DECREASED Plt Morphology Comment NORMAL RBC Morphology NOTED Polychromasia 1+ (0-2) Hypochromasia 1+ (5-14) Basophilic Stippling Microcytosis 1+ (5-14) Macrocytosis 1+ (5-14) [place] Bodies Target Cells Tear Drop Cells 1+ (0-2) Ovalocytes Carmen Cells 3+ (>5) Acanthocytes (Spur) Schistocytes VBG pH VBG pCO2 VBG pO2 VBG HCO3 VBG O2 Saturation VBG Base Excess Sodium 131 L Potassium 5.3 H Chloride 99 Carbon Dioxide 15 L Anion Gap 22 H BUN 101 H Creatinine 3.64 H Estim Creat Clear Calc 22.9 Estimated GFR 17 POC Glucose 236 H 302 H Random Glucose 313 H Calcium 6.7 L Phosphorus 7.9 H Magnesium 2.6 Total Bilirubin AST ALT Alkaline Phosphatase Total Protein Albumin 3.1 L 02/12/24 02/12/24 02/12/24 00:11 05:18 05:25 WBC 16.2 H RBC 2.86 L Hgb 8.2 L Hct 26.4 L MCV 92.3 MCH 28.7 MCHC 31.1 RDW 22.8 H Plt Count 62 L MPV 13.1 H Immature Gran % (Auto) Cancelled Neut % (Auto) Cancelled Lymph % (Auto) Cancelled [place] % (Auto) Cancelled Eos % (Auto) Cancelled Baso % (Auto) Cancelled Lymph # (Auto) Cancelled [place] # (Auto) Cancelled Eos # (Auto) Cancelled Baso # (Auto) Cancelled Abs Immat Gran (auto) Cancelled Absolute Neuts (auto) Cancelled Absolute Nucleated RBC 2.110 H Nucleated RBC % (auto) 13.1 H Neutrophils % (Manual) 67 Band Neutrophils % 22 H Lymphocytes % (Manual) 6 L Atypical Lymphs % (Man) 1 Monocytes % (Manual) 2 Basophils % (Manual) Metamyelocytes % 2 Abs Neuts (Manual) 14.4 H Lymphocytes # (Manual) 1.0 L Atyp Lymphs # (Manual) 0.2 Monocytes # (Manual) 0.3 Basophils # (Manual) Metamyelocytes # 0.3 Nucleated RBCs 7 H Toxic Granulation PRESENT Toxic Vacuolation PRESENT Dohle Bodies PRESENT Platelet Estimate DECREASED Plt Morphology Comment NORMAL RBC Morphology NOTED Polychromasia 3+ (>5) Hypochromasia 1+ (5-14) Basophilic Stippling 1+ (0-2) Microcytosis 1+ (5-14) Macrocytosis 1+ (5-14) [place] Bodies PRESENT Target Cells 1+ (5-14) Tear Drop Cells 1+ (0-2) Ovalocytes 1+ (5-14) [place] Cells 3+ (>5) Acanthocytes (Spur) 1+ (0-2) Schistocytes 1+ (0-2) VBG pH 7.11 L* VBG pCO2 58 VBG pO2 61 VBG HCO3 19 L VBG O2 Saturation 82.0 VBG Base Excess -10.1 Sodium 132 L Potassium 5.1 Chloride 96 Carbon Dioxide 15 L Anion Gap 26 H BUN 108 H Creatinine 3.66 H Estim Creat Clear Calc 23.6 Estimated GFR 17 POC Glucose 285 H Random Glucose 264 H Calcium 7.1 L Phosphorus 7.5 H Magnesium 2.6 Total Bilirubin 2.6 H AST 45 H ALT 19 Alkaline Phosphatase 237 H Total Protein 6.1 L Albumin 3.4 L 02/12/24 05:40 WBC RBC Hgb Hct MCV MCH MCHC RDW Plt Count MPV Immature Gran % (Auto) Neut % (Auto) Lymph % (Auto) [place] % (Auto) Eos % (Auto) Baso % (Auto) Lymph # (Auto) [place] # (Auto) Eos # (Auto) Baso # (Auto) Abs Immat Gran (auto) Absolute Neuts (auto) Absolute Nucleated RBC Nucleated RBC % (auto) Neutrophils % (Manual) Band Neutrophils % Lymphocytes % (Manual) Atypical Lymphs % (Man) Monocytes % (Manual) Basophils % (Manual) Metamyelocytes % Abs Neuts (Manual) Lymphocytes # (Manual) Atyp Lymphs # (Manual) Monocytes # (Manual) Basophils # (Manual) Metamyelocytes # Nucleated RBCs Toxic Granulation Toxic Vacuolation Dohle Bodies Platelet Estimate Plt Morphology Comment RBC Morphology Polychromasia Hypochromasia Basophilic Stippling Microcytosis Macrocytosis Pappenheimer Bodies Target Cells Tear Drop Cells Ovalocytes Carmen Cells Acanthocytes (Spur) Schistocytes VBG pH VBG pCO2 VBG pO2 VBG HCO3 VBG O2 Saturation VBG Base Excess Sodium Potassium Chloride Carbon Dioxide Anion Gap BUN Creatinine Estim Creat Clear Calc Estimated GFR POC Glucose 257 H Random Glucose Calcium Phosphorus Magnesium Total Bilirubin AST ALT Alkaline Phosphatase Total Protein Albumin Microbiology Microbiology Results: Microbiology 02/03/24 06:58 Blood - Venous Blood Culture - Final No growth after 5 days. 02/03/24 06:58 Blood - Venous Blood Culture - Final No growth after 5 days. 01/31/24 10:21 Blood - Venous Blood Culture - Final No growth after 5 days. 01/31/24 10:21 Blood - Venous Blood Culture - Final No growth after 5 days. 01/29/24 Unknown Bile Gram Stain - Final 01/29/24 Unknown Bile Routine Culture - Final No growth after 2 days 01/29/24 Unknown Bile Anaerobic Culture - Final NO GROWTH AFTER 5 DAYS 01/27/24 10:19 Blood - Venous Blood Culture - Final No growth after 5 days. 01/27/24 10:19 Blood - Venous Blood Culture - Final No growth after 5 days. 01/25/24 12:04 Pleural Fluid Gram Stain - Final 01/25/24 12:04 Pleural Fluid Routine Culture - Final No growth after 2 days 01/25/24 12:04 Pleural Fluid Anaerobic Culture - Final NO GROWTH AFTER 5 DAYS 01/23/24 16:34 Sputum - Suctioned Gram Stain - Final 01/23/24 16:34 Sputum - Suctioned Sputum Culture - Final Pseudomonas aeruginosa 01/21/24 04:03 Blood - Venous Blood Culture - Final No growth after 5 days. 01/21/24 04:03 Blood - Venous Blood Culture - Final No growth after 5 days. Progress Note: A&P Assessment and plan (1) Renal failure: Status: Acute (2) Non-small cell carcinoma of lung: Status: Acute (3) Prostate cancer metastatic to bone: Status: Acute (4) Acute and chronic respiratory failure with hypoxia: Status: Acute (5) COPD (chronic obstructive pulmonary disease): Status: Acute Plan Assessment: 68-year-old gentleman with underlying progressive metastatic disease with likely prostate so admitted with acute on chronic respiratory failure secondary to COVID-19, now with slow progressive decline secondary to underlying malignancy despite essentially maximum support Plan: Neuro: Acute encephalopathy, likely uremic versus paraneoplastic. Cardiac: Continue to titrate off pressor support as tolerated. Continue amiodarone drip for recurrent episodes of SVT. Pulmonary: Acute hypoxic respiratory failure secondary to combination of progressive neoplastic disease and Pseudomonas postobstructive pneumonia now requiring ventilatory support, continue to titrate off as tolerated. Renal: Progressive acute renal failure despite hemodialysis support. Nephrology service care appreciated. Endo: No acute issues. GI: No acute issues. ID: Postobstructive Pseudomonas pneumonia, continue Levaquin. Heme/Onc: Progressive metastatic disease to lung/chest wall and bone. Psych: No acute issues. Miscellaneous: Overall prognosis very poor. Discussions of goals of care are on-going with the family. Prophylaxis: Pneumatic compression, famotidine Diet: Tube feeds Critical care time spent: 60 minutes Quality Stroke Does the patient have a stroke diagnosis?: No VTE Prior VTE?: No VTE Risk Level:: Medical - moderate - high VTE Device Contraindication: N/A - Device Ordered VTE Drug Contraindication: Treatment Not Tolerated
--- NOTE | 2024-02-12 12:35 | PM.CCN ---
Critical Care Event Note Summary Date of Service: 02/12/24 Code activated: No Narrative: Overall essentially terminal prognosis discussed with patient's /healthcare proxy would like to switch goals of care to palliation. Code status switch to comfort measures only. Critical Care Time (minutes): 0
[2024-02-12] MEDS: fentaNYL citrate/NS 1,000 MCG/100 ML PLAST..BAG 10 MCG IVCONT (12:46)
[2024-02-12] MEDS: fentaNYL citrate/PF 100 MCG/2 ML VIAL IVPUSH (12:47)
--- NOTE | 2024-02-12 13:17 | PC.RT ---
Pt control extubated to RA by RT for GAGGERMAN per MD order.
--- NOTE | 2024-02-12 13:27 | P.DN_ITS ---
Discharge Sum: Prov Provider Primary care physician: CARY Patterson Consults: 01/22/24 08:53 Consult to Wound Care Routine Reason for consultation: skin tear gluteal crease 01/28/24 17:03 Consult to General Surgery Routine Consulting Provider: [facility] Reason for consultation: acute cholecystitis Has provider been notified: No 02/04/24 08:08 Consult to Nephrology Stat Consulting Provider: [facility] Reason for consultation: Acute Renal Insufficiency, Possible HD Has provider been notified: No Discharge Sum: Diag Contributing Factors (1) Renal failure: (2) Non-small cell carcinoma of lung: (3) Prostate cancer metastatic to bone: (4) Acute and chronic respiratory failure with hypoxia: (5) COPD (chronic obstructive pulmonary disease): Discharge Sum: Summary Date and Time Date of admission: 01/21/24 09:13 Date of : 02/12/24 Time of : 13:26 Summary Details: 68-year-old gentleman with underlying asthma/COPD overlap syndrome, lung cancer status post lobectomy, and prostate cancer now with metastasis to bone and chest admitted on 01/21/2024 with worsening dyspnea initially requiring high-flow nasal cannula, but with worsening respiratory status thus requiring noninvasive positive pressure ventilatory support, also noted to be positive for COVID-19. Patient admitted to intensive care unit. Hospital course significant for progressive respiratory distress and pulmonary aspiration requiring intubation on 01/23/2024. CT chest demonstrate progression of underlying metastatic disease. Required intubation on 01/23/2024 for airway protection on background of acute hypoxic respiratory failure. Edit 01/26/2024 and required re- intubation on 01/31/2024 secondary to hypoxia likely aspiration related. Hospital course further complicated by multiorgan failure including renal failure requiring dialysis, postobstructive Pseudomonas pneumonia, encephalopathy, AFib with RVR requiring amiodarone load, and thrombocytopenia. Patient continued with progressive decline despite maximum support. Terminal prognosis was discussed with patient's /healthcare proxy who decided to switch goals of care to palliation. Code status was changed to comfort measures on inpatient well as terminally extubated on 02/12/2024. Patient passed in comfort at 13:26. Additional Data Confirmation of as documented by pronouncing clinician: no pulse, no respirations, no heart sounds and pupils fixed and dilated Family: at bedside Attending physician: Keyshawn Browning MD
[2024-02-15 15:51] LABS: Glucose, Whole Blood 264 mg/dL (60-115)
[2024-02-15 15:52] LABS: Glucose, Whole Blood 267 mg/dL (60-115)
== END 2024-02-12 13:26 | disposition expired | DRG 870 ==
LOC: HO.ED 08:17 → HO.EDOVER 09:19 → HO.ICU 11:23
PROVIDERS: Internal Medicine Critical Care Medicine; Nurse Practitioner Family; Physician Assistant Medical; Registered Nurse Community Health; Student in an Organized Health Care Education/Training Program; Admitting Provider Internal Medicine Critical Care Medicine; Emergency Provider Internal Medicine; PCP Nurse Practitioner Family; Visit Provider Internal Medicine Pulmonary Disease
DX: A41.9 Sepsis, unspecified organism (principal); G93.41 Metabolic encephalopathy; U07.1 COVID-19; J96.21 Acute and chronic respiratory failure with hypoxia; J12.82 Pneumonia due to coronavirus disease 2019; J15.1 Pneumonia due to Pseudomonas; R65.21 Severe sepsis with septic shock; N17.0 Acute kidney failure with tubular necrosis; C79.51 Secondary malignant neoplasm of bone; E87.0 Hyperosmolality and hypernatremia; J44.1 Chronic obstructive pulmonary disease with (acute) exacerbation; J91.0 Malignant pleural effusion; I47.10 Supraventricular tachycardia, unspecified; F11.20 Opioid dependence, uncomplicated; K81.0 Acute cholecystitis; R04.2 Hemoptysis; C78.02 Secondary malignant neoplasm of left lung; D62 Acute posthemorrhagic anemia; Z51.5 Encounter for palliative care; C61 Malignant neoplasm of prostate; E87.6 Hypokalemia; R73.9 Hyperglycemia, unspecified; D63.0 Anemia in neoplastic disease; L89.150 Pressure ulcer of sacral region, unstageable; E66.9 Obesity, unspecified; E83.51 Hypocalcemia; Z68.33 Body mass index [BMI] 33.0-33.9, adult; Z90.2 Acquired absence of lung [part of]; Z86.14 Personal history of Methicillin resistant Staphylococcus aureus infection; Z87.891 Personal history of nicotine dependence; Z79.899 Other long term (current) drug therapy
CPT/HCPCS: 0241U; 36415; 36600; 49405; 71045; 71250; 71275; 76705; 80048; 80053; 80076; 80202; 81001; 82040; 82042; 82272; 82306; 82803; 82945; 82947; 83605; 83615; 83735; 83880; 83970; 83986; 84100; 84436; 84439; 84443; 84484; 85007; 85025; 85027; 85379; 85610; 85730; 86704; 86706; 86803; 86850; 86900; 86901; 86923; 87040; 87070; 87073; 87077; 87186; 87205; 87340; 87635; 88112; 88305; 88341; 88342; 89051; 90999; 92526; 92610; 93005; 93306; 94002; 94003; 94640; 94660; 94799; 99285; C1758; J0131; J0153; J0248; J0282; J0283; J0295; J0456; J0613; J0696; J1100; J1120; J1171; J1200; J1644; J1650; J1720; J1805; J1885; J1939; J1940; J1956; J2003; J2060; J2185; J2250; J2270; J2371; J2405; J2470; J2543; J2598; J2704; J2919; J3010; J3370; J3430; J3475; J3480; J3486; J7120; P9016; P9047; P9073; Q9957; Q9967

== ENCOUNTER → 2024-01-21 03:16 | Outpatient (BNV) | payer MEDICARE, SELFPAY | PROVIDERS: Admitting Provider Internal Medicine Critical Care Medicine; Emergency Provider Internal Medicine; Visit Provider Internal Medicine Cardiovascular Disease | DX: R00.0 Tachycardia, unspecified (principal); R06.02 Shortness of breath; R94.31 Abnormal electrocardiogram [ECG] [EKG] | CPT/HCPCS: 93010 ==

== ENCOUNTER → 2024-01-21 03:30 | Outpatient (BNV) | payer MEDICARE, SELFPAY | PROVIDERS: Emergency Provider Internal Medicine; Visit Provider Radiology Diagnostic Radiology | DX: R06.02 Shortness of breath (principal) | CPT/HCPCS: 71045; 71275 ==

== ENCOUNTER 2024-01-21 09:13 | Outpatient (BNV) | payer MEDICARE, SELFPAY | END 2024-01-22 14:39 | PROVIDERS: Admitting Provider Internal Medicine Critical Care Medicine; Emergency Provider Internal Medicine; PCP Nurse Practitioner Family; Visit Provider Internal Medicine Cardiovascular Disease | DX: R00.0 Tachycardia, unspecified (principal); R94.31 Abnormal electrocardiogram [ECG] [EKG] | CPT/HCPCS: 93010 ==

== ENCOUNTER 2024-01-21 09:13 | Outpatient (BNV) | payer MEDICARE, SELFPAY | END 2024-02-02 13:46 | PROVIDERS: Admitting Provider Internal Medicine Critical Care Medicine; Emergency Provider Internal Medicine; PCP Nurse Practitioner Family; Visit Provider Internal Medicine | DX: R00.0 Tachycardia, unspecified (principal); I49.3 Ventricular premature depolarization; R94.31 Abnormal electrocardiogram [ECG] [EKG] | CPT/HCPCS: 93010 ==

== ENCOUNTER 2024-01-21 09:13 | Outpatient (BNV) | payer MEDICARE, SELFPAY | END 2024-01-29 13:45 | PROVIDERS: Admitting Provider Internal Medicine Critical Care Medicine; Emergency Provider Internal Medicine; PCP Nurse Practitioner Family; Visit Provider Physician Assistant Surgical | DX: K81.9 Cholecystitis, unspecified (principal) | CPT/HCPCS: 49405 ==

== ENCOUNTER 2024-01-21 09:13 | Outpatient (BNV) | payer MEDICARE, SELFPAY | END 2024-02-01 07:00 | PROVIDERS: Admitting Provider Internal Medicine Critical Care Medicine; Emergency Provider Internal Medicine; PCP Nurse Practitioner Family; Visit Provider Internal Medicine | DX: I42.2 Other hypertrophic cardiomyopathy (principal); I36.1 Nonrheumatic tricuspid (valve) insufficiency; I27.20 Pulmonary hypertension, unspecified | CPT/HCPCS: 93306 ==

== ENCOUNTER 2024-01-21 09:13 | Outpatient (BNV) | payer MEDICARE, SELFPAY | END 2024-02-05 09:20 | PROVIDERS: Admitting Provider Internal Medicine Critical Care Medicine; Emergency Provider Internal Medicine; PCP Nurse Practitioner Family; Visit Provider Radiology Diagnostic Radiology | DX: T82.528A Displacement of other cardiac and vascular devices and implants, initial encounter (principal); Z99.2 Dependence on renal dialysis | CPT/HCPCS: 71045 ==

== ENCOUNTER 2024-01-21 09:13 | Outpatient (BNV) | payer MEDICARE, SELFPAY | END 2024-01-29 05:52 | PROVIDERS: Admitting Provider Internal Medicine Critical Care Medicine; Emergency Provider Internal Medicine; PCP Nurse Practitioner Family; Visit Provider Internal Medicine Cardiovascular Disease | DX: I47.19 Other supraventricular tachycardia (principal); R94.31 Abnormal electrocardiogram [ECG] [EKG] | CPT/HCPCS: 93010 ==

== ENCOUNTER 2024-01-21 09:13 | Outpatient (BNV) | payer MEDICARE, SELFPAY | END 2024-01-31 08:21 | PROVIDERS: Admitting Provider Internal Medicine Critical Care Medicine; Emergency Provider Internal Medicine; PCP Nurse Practitioner Family; Visit Provider Internal Medicine Cardiovascular Disease | DX: R00.0 Tachycardia, unspecified (principal); R94.31 Abnormal electrocardiogram [ECG] [EKG] | CPT/HCPCS: 93010 ==

== ENCOUNTER 2024-01-21 09:13 | Outpatient (BNV) | payer MEDICARE, SELFPAY | END 2024-02-03 05:26 | PROVIDERS: Admitting Provider Internal Medicine Critical Care Medicine; Emergency Provider Internal Medicine; PCP Nurse Practitioner Family; Visit Provider Internal Medicine | DX: R00.0 Tachycardia, unspecified (principal); R94.31 Abnormal electrocardiogram [ECG] [EKG] | CPT/HCPCS: 93010 ==

== ENCOUNTER 2024-01-21 09:13 | Outpatient (BNV) | payer MEDICARE, SELFPAY | END 2024-02-02 04:50 | PROVIDERS: Admitting Provider Internal Medicine Critical Care Medicine; Emergency Provider Internal Medicine; PCP Nurse Practitioner Family; Visit Provider Radiology Diagnostic Radiology | DX: J44.9 Chronic obstructive pulmonary disease, unspecified (principal) | CPT/HCPCS: 71045 ==

== ENCOUNTER → 2024-01-21 09:13 | Outpatient (BNV) | payer MEDICARE, SELFPAY | PROVIDERS: Admitting Provider Internal Medicine Critical Care Medicine; Emergency Provider Internal Medicine; PCP Nurse Practitioner Family; Visit Provider Nurse Practitioner Family | DX: N17.9 Acute kidney failure, unspecified (principal); C79.82 Secondary malignant neoplasm of genital organs; U07.1 COVID-19; J96.21 Acute and chronic respiratory failure with hypoxia | CPT/HCPCS: 90935; 99222 ==

== ENCOUNTER → 2024-01-21 09:13 | Outpatient (BNV) | payer MEDICARE, SELFPAY | PROVIDERS: Admitting Provider Internal Medicine Critical Care Medicine; Emergency Provider Internal Medicine; PCP Nurse Practitioner Family; Visit Provider Internal Medicine Pulmonary Disease | DX: C61 Malignant neoplasm of prostate (principal); C79.51 Secondary malignant neoplasm of bone; J44.9 Chronic obstructive pulmonary disease, unspecified; J96.21 Acute and chronic respiratory failure with hypoxia; U07.1 COVID-19 | CPT/HCPCS: 31500; 99291 ==

== ENCOUNTER → 2024-01-21 09:13 | Outpatient (BNV) | payer MEDICARE, SELFPAY | PROVIDERS: Admitting Provider Internal Medicine Critical Care Medicine; Emergency Provider Internal Medicine; Visit Provider Internal Medicine Critical Care Medicine | DX: J96.21 Acute and chronic respiratory failure with hypoxia (principal); R57.9 Shock, unspecified; C79.82 Secondary malignant neoplasm of genital organs; C34.90 Malignant neoplasm of unspecified part of unspecified bronchus or lung; G93.40 Encephalopathy, unspecified | CPT/HCPCS: 32556; 99223; 99291 ==

== ENCOUNTER → 2024-01-21 09:13 | Outpatient (BNV) | payer MEDICARE, SELFPAY | PROVIDERS: Admitting Provider Internal Medicine Critical Care Medicine; Emergency Provider Internal Medicine; PCP Nurse Practitioner Family; Visit Provider Surgery | DX: K81.0 Acute cholecystitis (principal); J90 Pleural effusion, not elsewhere classified | CPT/HCPCS: 99222 ==